=== PATIENT | female | born 1940 | race African-American/Black ===

== ENCOUNTER 2019-10-19 15:10 | Outpatient (CLI) | payer MEDICARE, SELFPAY ==
--- NOTE | ~2019-10-19 | CT_ITS ---
EXAMINATION: CT abdomen pelvis wo con DATE: 10/19/2019 15:16 INDICATION: Low abdominal pain TECHNIQUE: Computed tomography (CT) of the abdomen and pelvis was performed without intravenous contr ast. Automated exposure control and iterative reconstruction technique were employed. Exam dose: 869 .01 mGy-cm total exam DLP. COMPARISON: 06/23/2016 CT abdomen pelvis FINDINGS: There are stable hepatic and bilateral renal cysts since 06/23/2016. Occasional hepatic and splenic c alcified granulomas consistent with old granulomatous disease. No interval hepatic, splenic, pancreat ic, adrenal or renal space-occupying mass lesion is evident. No urinary tract calculus or hydroureteronephrosis. The uterus is retroverted. Otherwise the uterus, adnexal areas and urinary bladder are unremarkable. There is abdominal aortic and bilateral iliac arterial calcification and femoral artery calcification but no aneurysm. No intraperitoneal or retroperitoneal or pelvic mass lesion or adenopathy or ascite s. Small sliding hiatal hernia. Again noted is a duodenal diverticulum. Normal appendix. There are numerous diverticula of the sigmoid and descending colon and right colon; no CT evidence of diverticulitis. Diffuse idiopathic skeletal hyperostosis of the lower thoracic and upper lumbar spine. Degenerative d isease and severe hypertrophic degenerative change of the apophyseal joints of the lumbar spine. Bilateral hip osteoarthritis. The lung bases are clear of infiltrate or consolidation. Cardiomegaly. Trace pericardial fluid. No pl eural effusion. IMPRESSION: Stable hepatic and bilateral renal cysts since 06/23/2016 Diverticulosis of the left and right colon; no CT evidence of diverticulitis Normal appendix Small sliding hiatal hernia Reviewed, dictated and finalized at Location [facility]. Reviewed, dictated and finalized at location B. 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
== END 2019-10-19 15:11 | disposition home or self-care (01) ==
PROVIDERS: PCP Internal Medicine; Visit Provider Obstetrics & Gynecology
DX: R19.00 Intra-abdominal and pelvic swelling, mass and lump, unspecified site (principal); K76.89 Other specified diseases of liver; N28.1 Cyst of kidney, acquired; K57.90 Diverticulosis of intestine, part unspecified, without perforation or abscess without bleeding; K44.9 Diaphragmatic hernia without obstruction or gangrene
CPT/HCPCS: 74176

== ENCOUNTER 2019-10-24 10:59 | Outpatient (CLI) | payer MEDICARE, SELFPAY ==
--- NOTE | ~2019-10-24 | MM_ITS ---
EXAMINATION: MM screening roni BI w justin HISTORY: Screening mammogram TECHNIQUE: Bilateral rotated lateral cc views. Craniocaudal and mediolateral oblique 3-D tomosynthesi s images were obtained and synthetic 2-D images were generated. CAD analysis was submitted and interp reted. COMPARISON: 10/30/2018 diagnostic right digital mammogram 09/27/2018, 09/22/2017, 09/30/2016 bilateral digital screening mammogram examinations BREAST PARENCHYMAL COMPOSITION: The breasts are almost entirely fatty. The FINDINGS: There is a biopsy marker on the left; history of prior benign left breast biopsy. There ar e bilateral scattered benign calcifications. There is no evidence of suspicious mass, calcification, or architectural distortion to suggest malignancy in either breast. There has been no suspicious inte rval change. IMPRESSION: 1. No mammographic evidence of malignancy. 2. Recommend routine screening mammography in one year. BI-RADS Category 2: Benign finding(s). Reviewed, dictated and finalized at location A. 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
== END 2019-10-24 11:00 | disposition home or self-care (01) ==
LOC: ANHIMG 11:03
PROVIDERS: PCP Internal Medicine; Visit Provider Obstetrics & Gynecology
DX: Z12.31 Encounter for screening mammogram for malignant neoplasm of breast (principal)
CPT/HCPCS: 77063; 77067

== ENCOUNTER 2020-09-11 06:54 | Outpatient (NON) | payer MEDICARE, SELFPAY ==
[2020-09-11 17:56] LABS: SARS-CoV-2 RNA PCR Negative
== END 2020-09-11 06:55 ==
LOC: ANHCOVIDDT 06:58
PROVIDERS: PCP Internal Medicine; Visit Provider Internal Medicine
DX: R68.89 Other general symptoms and signs (principal); Z20.828 Contact with and (suspected) exposure to other viral communicable diseases
CPT/HCPCS: 87635; C9803; U0003

== ENCOUNTER 2020-11-12 14:29 | Outpatient (CLI) | payer MEDICARE, SELFPAY ==
--- NOTE | ~2020-11-12 | MM_ITS ---
EXAMINATION: MM screening roni BI w justin HISTORY: Screening TECHNIQUE: Craniocaudal and mediolateral oblique 3-D tomosynthesis images were obtained and synthetic 2-D images were generated. CAD analysis was submitted and interpreted. COMPARISON: Comparison to multiple prior studies sequentially, with oldest reviewed study dated 05/2017. BREAST PARENCHYMAL COMPOSITION: There are scattered areas of fibroglandular density. FINDINGS: There is no evidence of suspicious mass, calcification, or architectural distortion to sugg est malignancy in either breast. There has been no suspicious interval change. IMPRESSION: 1. No mammographic evidence of malignancy. 2. Recommend routine screening mammography in one year. BI-RADS Category 1: Negative Reviewed, dictated and finalized at location A. 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
== END 2020-11-12 14:30 | disposition home or self-care (01) ==
LOC: ANHIMG 14:31
PROVIDERS: PCP Internal Medicine; Visit Provider Obstetrics & Gynecology
DX: Z12.31 Encounter for screening mammogram for malignant neoplasm of breast (principal)
CPT/HCPCS: 77063; 77067

== ENCOUNTER → 2020-11-24 02:54 | Outpatient (CLI) | payer MEDICARE, SELFPAY ==
[2020-11-24 21:05] LABS: SARS-CoV-2 RNA PCR Negative
== END ==
PROVIDERS: PCP Internal Medicine; Visit Provider Internal Medicine Gastroenterology
DX: Z01.812 Encounter for preprocedural laboratory examination (principal); Z20.822 Contact with and (suspected) exposure to COVID-19
CPT/HCPCS: C9803; U0003; U0005

== ENCOUNTER 2020-11-27 01:26 | Day surgery (SDC) | payer MEDICARE, SELFPAY ==
[2020-11-18 10:05] VITALS: BMI 32.1
[2020-11-27 08:50] VITALS: BP 177/50; PULSE 86; RESP 16; TEMP 36.4; O2SAT 95; BMI 32.5
[2020-11-27 09:08] LABS: Glucose Point of Care 103 (65-105)
[2020-11-27] MEDS: LACTATED RINGERS 1,000 ML 150 ML IV CONT (09:08)
--- NOTE | 2020-11-27 09:11 | WPDANESEPPF ---
Anes - Initial Pre Proc Eval Procedure: Operation Date: 11/27/20 10:00 Proposed Procedures p Screening Colonoscopy - Simone Craig MD Date/Time: 11/27/20 09:11 Surgeon: Simone Craig MD Pre Op Diagnosis: hx colon polyps Patient Data Age: 79 Gender: F Height: 5 ft 4 in Weight: 86 kg Last Vital Signs Temp 97.6 F 11/27/20 08:50 Pulse 86 11/27/20 08:50 Resp 16 11/27/20 08:50 BP 177/50 H 11/27/20 08:50 Pulse Ox 95 11/27/20 08:50 Allergies Allergy/AdvReac Type Severity Reaction Status Date / Time atorvastatin [From Lipitor] Allergy Mild myalgia Verified 11/27/20 08:48 fluvastatin [From Lescol] Allergy Mild Unknown Verified 11/27/20 08:48 pravastatin [From Pravachol] Allergy Mild Unknown Verified 11/27/20 08:48 rosuvastatin [From Crestor] Allergy Mild myalgia Verified 11/27/20 08:48 Penicillins Allergy Unknown Unknown Verified 11/27/20 08:48 IV CONTRAST DYE Allergy Mild CKD Uncoded 11/27/20 08:48 Home Medications Medication Instructions Recorded Confirmed Type metformin 500 mg tablet 500 mg PO BID 08/02/19 11/18/20 History albuterol sulfate 90 mcg/actuation 1 puff INHALATION Q4H PRN 10/31/19 11/18/20 History aerosol inhaler fluticasone furoate 200 1 inhalation INHALATION DAILY 10/31/19 11/18/20 History mcg-vilanterol 25 mcg/dose inhalation powder omeprazole 40 mg capsule,delayed 40 mg PO DAILY 10/31/19 11/18/20 History release sulfasalazine 500 mg tablet See Rx Instructions .ROUTE 05/14/20 11/18/20 Rx .COMPLEX #180 tablet fluticasone propionate 50 1 spray NASAL BID #15.8 ml 06/10/20 11/18/20 Rx mcg/actuation nasal spray,suspension allopurinol 300 mg tablet 300 mg PO DAILY 09/25/20 11/18/20 History atorvastatin 40 mg tablet 40 mg PO DAILY 09/25/20 11/18/20 History furosemide 40 mg tablet 40 mg PO QAM 09/25/20 11/18/20 History hydralazine 25 mg tablet 25 mg PO ONCE tablet 09/25/20 11/18/20 History hydrochlorothiazide 25 mg tablet 25 mg PO DAILY 09/25/20 11/18/20 History hydroxyzine HCl 10 mg tablet 10 mg PO QID PRN tablet 09/25/20 11/18/20 History irbesartan 300 mg tablet 300 mg PO DAILY 09/25/20 11/18/20 History lorazepam 0.5 mg tablet 0.5 mg PO DAILY PRN 09/25/20 11/18/20 History metolazone 2.5 mg tablet 2.5 mg PO DAILY 09/25/20 11/18/20 History metoprolol tartrate 100 mg tablet 100 mg PO DAILY 09/25/20 11/18/20 History montelukast 10 mg tablet 10 mg PO DAILY 09/25/20 11/18/20 History nifedipine 60 mg tablet,extended 60 mg PO BID tablet 09/25/20 11/18/20 History release potassium chloride 20 mEq 20 meq PO DAILY 09/25/20 11/18/20 History tablet,extended release sod picosulf 10 mg-magnes 3.5 160 ml PO BID #160 ml 11/17/20 Rx gram-citric 12 gram/160 mL oral solution Laboratory Tests 11/27/20 09:04 POC Capillary Glucose 103 mg/dl mg/dl (65-105) Patient hx anesthesia problems: none Family hx anesthesia problems: none PMFSH Past Medical History Medical History (Updated 11/06/20 @ 11:56 by Madhu Raines MD) Adenomatous colon polyp Allergic rhinitis Asthma Brachial neuritis Congestive heart failure Contusion of lower leg Disorder of rotator cuff Disorder of vitamin B12 Edema Epigastric pain ESR raised Essential hypertension Fracture of humerus Generalized osteoarthritis of multiple sites GERD (gastroesophageal reflux disease) Gout 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) Indigestion Lower abdominal pain Neck pain Pain, joint, ankle and foot Pure hypercholesterolemia Seronegative spondyloarthropathy (~2016) Shoulder joint pain Sleep apnea, unspecified Type 2 diabetes mellitus Ventral incisional hernia Surgical History Surgical History History of left cataract extraction History of right cataract extraction Family History Family History Mother
--- NOTE | 2020-11-27 09:51 | PM.HPGS ---
History of Present Illness History of Present Illness Consent: Risks, benefits, and alternatives have been discussed and questions answered. Patient agrees to proceed with procedure. Chief complaint: hx colon polyps Narrative: Madyson Giraldo is a 79 year old female here for colon cancer screening she has had polyps removed in the past Review of Systems Review of Systems: All systems reviewed & are unremarkable except as noted in HPI and below PMFSH Past Medical History Medical History Adenomatous colon polyp Allergic rhinitis Asthma Brachial neuritis Congestive heart failure Contusion of lower leg Disorder of rotator cuff Disorder of vitamin B12 Edema Epigastric pain ESR raised Essential hypertension Fracture of humerus Generalized osteoarthritis of multiple sites GERD (gastroesophageal reflux disease) Gout 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) Indigestion Lower abdominal pain Neck pain Pain, joint, ankle and foot Pure hypercholesterolemia Seronegative spondyloarthropathy (~2016) Shoulder joint pain Sleep apnea, unspecified Type 2 diabetes mellitus Ventral incisional hernia Surgical History Surgical History History of left cataract extraction History of right cataract extraction Family History Family History Mother Hypertension Unknown Family history of stroke Family history of cancer Other Diabetes mellitus Family history of allergic disorder Family history of cardiovascular disease Family history of sleep apnea Social History Social History Smoking status: Never smoker Alcohol intake: never Substance use: never Substance use type: does not use Living arrangements: with family Gender identity (if verbalized by the patient): Female Spiritual care concerns: No Meds Home Medications and Allergies Home Medications Medication Instructions Recorded Confirmed Type metformin 500 mg tablet 500 mg PO BID 08/02/19 11/18/20 History albuterol sulfate 90 mcg/actuation 1 puff INHALATION Q4H PRN 10/31/19 11/18/20 History aerosol inhaler fluticasone furoate 200 1 inhalation INHALATION DAILY 10/31/19 11/18/20 History mcg-vilanterol 25 mcg/dose inhalation powder omeprazole 40 mg capsule,delayed 40 mg PO DAILY 10/31/19 11/18/20 History release sulfasalazine 500 mg tablet See Rx Instructions .ROUTE 05/14/20 11/18/20 Rx .COMPLEX #180 tablet fluticasone propionate 50 1 spray NASAL BID #15.8 ml 06/10/20 11/18/20 Rx mcg/actuation nasal spray,suspension allopurinol 300 mg tablet 300 mg PO DAILY 09/25/20 11/18/20 History atorvastatin 40 mg tablet 40 mg PO DAILY 09/25/20 11/18/20 History furosemide 40 mg tablet 40 mg PO QAM 09/25/20 11/18/20 History hydralazine 25 mg tablet 25 mg PO ONCE tablet 09/25/20 11/18/20 History hydrochlorothiazide 25 mg tablet 25 mg PO DAILY 09/25/20 11/18/20 History hydroxyzine HCl 10 mg tablet 10 mg PO QID PRN tablet 09/25/20 11/18/20 History irbesartan 300 mg tablet 300 mg PO DAILY 09/25/20 11/18/20 History lorazepam 0.5 mg tablet 0.5 mg PO DAILY PRN 09/25/20 11/18/20 History metolazone 2.5 mg tablet 2.5 mg PO DAILY 09/25/20 11/18/20 History metoprolol tartrate 100 mg tablet 100 mg PO DAILY 09/25/20 11/18/20 History montelukast 10 mg tablet 10 mg PO DAILY 09/25/20 11/18/20 History nifedipine 60 mg tablet,extended 60 mg PO BID tablet 09/25/20 11/18/20 History release potassium chloride 20 mEq 20 meq PO DAILY 09/25/20 11/18/20 History tablet,extended release sod picosulf 10 mg-magnes 3.5 160 ml PO BID #160 ml 11/17/20 Rx gram-citric 12 gram/160 mL oral solution Allergies Allergy/AdvReac Type Severity Reaction Status Date / Time atorvastatin [From Lipitor] Allergy Mild my
[2020-11-27 10:18] VITALS: BP 142/59; PULSE 71; RESP 19; O2SAT 95
[2020-11-27 10:28] VITALS: BP 152/56; PULSE 73; RESP 19; O2SAT 95
[2020-11-27 10:38] VITALS: BP 175/74; PULSE 76; RESP 19; O2SAT 96
== END 2020-11-27 10:53 | disposition home or self-care (01) ==
PROVIDERS: PCP Internal Medicine; Visit Provider Internal Medicine Gastroenterology
PROC: 0DJD8ZZ Inspection of Lower Intestinal Tract, Via Natural or Artificial Opening Endoscopic (ICD-10-PCS; CPT 45378; principal; 2020-11-27 10:00)
DX: Z12.11 Encounter for screening for malignant neoplasm of colon (principal); K63.5 Polyp of colon; D12.4 Benign neoplasm of descending colon; K57.30 Diverticulosis of large intestine without perforation or abscess without bleeding; I11.0 Hypertensive heart disease with heart failure; I50.9 Heart failure, unspecified; K21.9 Gastro-esophageal reflux disease without esophagitis; M10.9 Gout, unspecified; E11.9 Type 2 diabetes mellitus without complications; E78.00 Pure hypercholesterolemia, unspecified; J45.909 Unspecified asthma, uncomplicated; M15.9 Polyosteoarthritis, unspecified; G47.30 Sleep apnea, unspecified; Z79.84 Long term (current) use of oral hypoglycemic drugs; Z79.51 Long term (current) use of inhaled steroids; E66.01 Morbid (severe) obesity due to excess calories; Z68.32 Body mass index [BMI] 32.0-32.9, adult
CPT/HCPCS: 45380; 45385; 82948; 88305; J2704; J7120

== ENCOUNTER → 2020-12-18 11:03 | Outpatient (CLI) | payer MEDICARE, SELFPAY ==
--- NOTE | ~2020-12-18 | MR_ITS ---
EXAMINATION: MR hip RT wo con DATE: 12/18/2020 11:58 INDICATION: Right hip pain TECHNIQUE: Magnetic resonance imaging (MRI) of the right hip was performed without intravenous contr ast. Sequences included full-field axial PD-weighted FS FSE and T1-weighted FSE, coronal of the pelvi s with PD-weighted FS FSE, T1-weighted FSE and T2-weighted FS FSE, small field of view of the right hip with axial PD-weighted FS FSE, sagittal PD-weighted FS FSE and coronal PD weighted FS FSE. Additi onal radial T1-weighted FGR oriented orthogonal to the acetabular rim were obtained for evaluation of the labrum. COMPARISON: Right hip radiographs dated 12/02/[address] dated 10/19/2019 FINDINGS: Bones/labrum/cartilage: Alignment is normal. No fracture, avascular necrosis or pathologic marrow replacing process. Chronic moderate osteitis pubis. Mild right hip osteoarthritis with partial thickness cartilage loss without degenerative subchondral changes resulting in mild nonuniform joint space narrowing most prominent a t the posterior and posterior inferior joint space. Marginal osteophytes about the right acetabulum e xtending to the diminutive remaining acetabular labrum which is without discrete tear. Severe right s acroiliac osteoarthritis with prominent hypertrophic anterior osteophytes. There is mild soft tissue edema surrounding the osteophytes in the immediately adjacent right iliac is muscle. Moderate left sa croiliac osteoarthritis. Fluid: Symmetric physiologic amount of fluid within both hip joints. Soft tissues: Normal and symmetric muscle bulk and signal in the pelvis and visualized proximal thighs. The iliopso as and gluteal tendons are normal. Mild tendinopathy without discrete tear at the ischial tuberosity origins of the bilateral proximal hamstring tendons. Multiple nodular regions which are T2 hyperinten se to the surrounding myometrium in the retroverted uterus likely representing uterine fibroids, the largest measuring 4.5 cm in maximal diameter. Multiple scattered colonic diverticula. 4 cm cyst at th e inferior right hepatic lobe. No pathologically enlarged pelvic/inguinal lymphadenopathy. IMPRESSION: 1. Mild right hip osteoarthritis without joint effusion or acute osseous abnormality. 2. Moderate left-sided and severe right-sided sacroiliac osteoarthritis with likely reactive soft tis cholo edema surrounding large hypertrophic osteophytes at the anterior right sacral iliac joint. 3. Fibroid uterus. 4. Mild colonic diverticulosis. Reviewed, dictated and finalized at location B. IMPRESSION: 1. Mild right hip osteoarthritis without joint effusion or acute osseous abnorm ality. 2. Moderate left-sided and severe right-sided sacroiliac osteoarthritis with li david reactive soft tissue edema surrounding large hypertrophic osteophytes at t he anterior right sacral iliac joint. 3. Fibroid uterus. 4. Mild colonic diverticulosis.
== END ==
PROVIDERS: PCP Internal Medicine; Visit Provider Orthopaedic Surgery
DX: M16.11 Unilateral primary osteoarthritis, right hip (principal); D25.9 Leiomyoma of uterus, unspecified; K57.30 Diverticulosis of large intestine without perforation or abscess without bleeding; M53.3 Sacrococcygeal disorders, not elsewhere classified
CPT/HCPCS: 73721

== ENCOUNTER 2021-04-01 10:09 | Outpatient (CLI) | payer MEDICARE, SELFPAY ==
--- NOTE | 2021-04-01 16:35 | WPDSIXMINUTE ---
Six Minute Walk Procedure Procedure Performed Pulmonary Stress Test (6 min walk) Six Minute Walk This is a 6 minutes walk test. The test was performed and interpreted in accordance with the 2014 ERS/ATS task force guidelines. Findings: The patient's resting room air oxygen saturation measured by pulse oximetry was 98% and her heart rate was 70 bpm. Patient ambulated for 183 meters and oxygen saturation remained 94 to 98%. Heart rate at the end of the study was 98 bpm. The patient did not qualify for supplemental oxygen at rest or with ambulation. There are no prior studies for comparison.
--- NOTE | 2021-04-01 16:36 | P.PCNPFT_ITS ---
PFT Procedure Performed PFT Procedure Performed Spirometry with Pre/Post Bronchodilator Plethysmography (Lung Vol) Diffusing Cap (DLCO) Flow Vol Loop PFT Interpretation This is a pulmonary function test with pre and post-bronchodilator spirometry, plethysmography and diffusing capacity. The test was performed and results interpreted in accordance with the 2019 and 2005 ATS/ERS Task Force guidelines respectively using the Global Lung Function Initiative-2012 reference equations. Patient demonstrated good effort and cooperation. Reproducibility criteria were met. The quality of the pre bronchodilator spirometry maneuver was Grade A. Findings: Spirometry: There is decreased maximal expiratory airflow at all lung volumes with concave expiratory flow tracing. The contour of the inspiratory flow tracing is normal. The pre bronchodilator FVC was 1.58 L, 73% predicted. The pre bronchodilator FEV1 is 1.91 L, 55% predicted. The FEV1: FVC ratio is 58%. The post bronchodilator FVC is 1.57 L, representing a 1% decrease. The post bronchodilator FEV1 is 1.05 L, representing 140 mL increase or a 15% increase. Plethysmography: The total lung capacity is 5.33 L, 119% predicted. Functional residual capacity is 4.08 L, 140% predicted. The residual volume is 3.75 L, 167% predicted. Diffusing capacity: The absolute diffusion capacity is 10.6, 55% predicted. Diffusing capacity corrected for alveolar volume is 3.77, 92% predicted. In comparison to previous pulmonary function test on 11/23/2017 the post bronchodilator FVC is unchanged from 1.60 L to 1.57 L. The post bronchodilator FEV1 is unchanged from 1.16 L to 1.05 L. The total lung capacity is increased from 3.61 L to 5.33 L. The functional residual capacity is increased from 2.67 L to 4.08 L. The residual volume is increased from 1.95 L to 3.75 L. The absolute diffusion capacity is decreased from 12.9 to 10.6. The diffusing capacity corrected for alveolar volume is decreased from 4.50 to 3.77. Impression: There is a moderately severe obstructive abnormality without significant improvement after inhaling a single dose of albuterol as there was not absolute increase in 200 mL in the post bronchodilator FVC or FEV1. The increase in residual volume is consistent with air trapping from an obstructive abnormality. Hyperinflation is present is demonstrated by the increase in functional residual capacity and is consistent with an obstructive abnormality. The absolute diffusing capacity is moderately decreased and normalizes when corrected for alveolar volume. In comparison to prior pulmonary function tests on 11/23/2017 there has been a greater than anticipated time dependent increase in the total lung capacity, fun ctional residual capacity and residual volume with a greater than anticipated time dependent decrease in the absolute diffusion capacity and diffusing capacity corrected for alveolar volume with no change in the FVC and FEV1. Clinical correlation is recommended. There are no prior studies for comparison
== END 2021-04-01 10:10 | disposition home or self-care (01) ==
LOC: ANHPFT 10:11
PROVIDERS: PCP Internal Medicine; Visit Provider Internal Medicine Critical Care Medicine
DX: J44.9 Chronic obstructive pulmonary disease, unspecified (principal); R06.02 Shortness of breath
CPT/HCPCS: 94060; 94726; 94729

== ENCOUNTER 2021-06-17 12:50 | Outpatient (CLI) | payer MEDICARE, SELFPAY | END 2021-06-17 12:51 | disposition home or self-care (01) | LOC: ANHAUDIO 12:51 | PROVIDERS: PCP Internal Medicine; Visit Provider Otolaryngology | DX: H72.01 Central perforation of tympanic membrane, right ear (principal); H81.10 Benign paroxysmal vertigo, unspecified ear | CPT/HCPCS: 92557; 92567 ==

== ENCOUNTER 2021-10-01 09:32 | Outpatient (CLI) | payer MEDICARE, SELFPAY ==
--- NOTE | ~2021-10-01 | US_ITS ---
EXAMINATION: US abdomen complete EXAM DATE: 10/01/2021 11:56 INDICATION: R11.2 - Nausea with vomiting, unspecified. TECHNIQUE: Multiple grayscale and Doppler images of the complete abdomen were obtained (by a technolo roger who performed the scan) and subsequently reviewed. Comparison is made to prior examination from 05/31/2012. FINDINGS: The abdominal aorta is normal in caliber. Visualized portion IVC is patent. The pancreatic head a nd body are normal in appearance. The pancreatic tail is not visualized. The liver has normal echogenicity and contour. There is a liver cyst measuring 4.4 cm. There is no evidence of intrahepatic biliary duct dilation. Portal venous flow was seen in the hepatopedal, norm al direction and has normal Doppler waveform. Common bile duct measures 5 mm, which is normal. The gallbladder wall is normal in thickness, with ex pected amount of distention. No sonographic evidence of pericholecystic fluid. Gallbladder polyp me asuring 5-6 mm in size, appears to have been present in 2012, captured on one image. Technologist brendan rforming exam reports patient did not demonstrate sonographic Gómez's sign. Please note that this s ign is less reliable in patients who have received pain medication. Right kidney: There is normal contour and echogenicity. It measures 10.4 x 5.4 x 5.0 centimeters. 2 lesions consistent with cysts measuring up to 1.6 and 1.2 cm. There is no hydronephrosis. Left kidney: There is normal contour and echogenicity. It measures 11.4 x 5.6 x 4.6 centimeters. Th ere are multiple lesions consistent with cysts, largest 2 measuring about 6 cm, have increased in siz e compared to 2012. There is no hydronephrosis. The spleen measures 8.3 centimeters and is morphologically normal. IMPRESSION: 1. No acute findings. 2. Small gallbladder polyp requiring no further follow-up. 3. Renal, liver cysts. Reviewed, dictated and finalized at location B. EM OPERATOR
== END 2021-10-01 09:33 | disposition home or self-care (01) ==
LOC: ANHIMG 09:36
PROVIDERS: PCP Internal Medicine; Visit Provider Internal Medicine Gastroenterology
DX: R11.2 Nausea with vomiting, unspecified (principal); K82.4 Cholesterolosis of gallbladder; K76.89 Other specified diseases of liver; N28.1 Cyst of kidney, acquired
CPT/HCPCS: 76700

== ENCOUNTER 2021-12-09 10:30 | Outpatient (RCR) | payer MEDICARE, SELFPAY ==
--- NOTE | 2021-11-19 14:22 | PTOPEVAL ---
Thank you for referring Madyson Giraldo to [facility].? The patient is scheduled to be seen for therapy? 1 x/week for 8 weeks. Please review, sign, date and return this plan of care TONI. I agree with and certify that the following plan of care is medically necessary. Referring Physician Date Attending Provider: Osmar yWnn MD Diagnosis BPPV Cause 2 months Additional Evaluation Detail s/p right ear tube placement ~ 6 months ago on medication for her cardiac problems. Subjective Information C/o Dizziness from sup/sit, Query Text:As Reported By Patient/ sit>stand movement and walking Family . Denies any falls or dizziness with rolling in bed. Denies any dizziness with ADL's, dovetailer. Denies dizziness with driving. Denies use of AD. Previous Treatments Previous Treatments For This Problem yes 1 yr ago Pain Assessment Left Leg(s) Reported Pain Level 0 Pain Frequency Chronic Lowest Pain Intensity 0 Greatest Pain Intensity 4 Cervical and Lumbar ROM Cervical ROM Cervical Flexion (0-60) 60:Active in Degrees Cervical Extension (0-70) 48:Active in Degrees Cervical Lateral Flexion Right (0-50) 18:Active in Degrees Cervical Lateral Flexion Left (0-50) 18:Active in Degrees Cervical Rotation Right (0-90) 48:Active in Degrees Cervical Rotation Left (0-90) 30:Active in Degrees Posture Posture Sitting Position Head/C-Spine Posture Excess Extension,Forward Head Thoracic Spine Posture Increased Kyphosis Scapula Posture (L) Protracted,(R) Protracted, (L) Winged,(R) Winged,(L) Tipped,(R) Tipped Balance Assessment [place] Balance Assessment [place] Balance Evaluation Total Score (40/56 points) Time Up Go (TUG) Timed Up and Go Test (TUG) (Seconds) 13 Assistive Devices None Dynamic Gait Index Total Score (15/24) Gait Assessment Gait Assessment Ambulation Assistive Devices None Ambulation Direction Forward Ambulation Surface Level Ambulation Ability Independent Vestibular Evaluation Vestibular Medical Information Past Vestibular History Sinus/Allergy Issues Recent Symptoms Loss of Balance Previous Medical Care/Testing Previous PT Symptoms Increase Lie Down (sit to supine), Sitting up in Bed,Stand up Quickly Symptoms Decrease
--- NOTE | 2021-11-25 09:32 | PCPTNOTE ---
Patient called & cancelled scheduled appointment this date due to having another appointment, this morning.
--- NOTE | 2021-12-02 10:22 | PCPTNOTE ---
Patient called & cancelled scheduled appointment this date due to having to take care of her .
--- NOTE | 2021-12-16 10:08 | PCPTNOTE ---
Patient called & cancelled scheduled appointment this date due to stating she was to dizzy to drive in the rain. Also, cancelled her next appointment due to not having a caregiver for her , who has dementia
--- NOTE | 2021-12-17 09:26 | PCPTNOTE ---
Admitting Provider: Attending Provider: Osmar Wynn MD Patient:Madyson Giraldo Date of :1940 Physical Therapy Discharge Note Patient has not returned for any further treatments since 12/09/2021, therefore she will be discharged at this time. Patient?s initial visit was on 11/19/2021 and she had a total of 2 visits with 4 visits cancelled. The goals have been not met due to limited therapy visits attended. Thank you for referring this patient to [facility]. Please review, sign, date and return this discharge summary TONI. I have been updated about the patient's current status and I agree with discharge from the above service at this time. Referring Physician Date
== END 2021-12-18 11:33 | disposition home or self-care (01) ==
LOC: ANHPT 10:30
PROVIDERS: PCP Internal Medicine; Visit Provider Otolaryngology
DX: H81.10 Benign paroxysmal vertigo, unspecified ear (principal)
CPT/HCPCS: 97112; 97162

== ENCOUNTER 2022-01-06 09:51 | Outpatient (CLI) | payer MEDICARE, SELFPAY ==
--- NOTE | ~2022-01-06 | MM_ITS ---
EXAMINATION: MM screening [facility] BI w justin HISTORY: Screening TECHNIQUE: Craniocaudal and mediolateral oblique 3-D tomosynthesis images were obtained and synthetic 2-D images were generated. CAD analysis was submitted and interpreted. COMPARISON: Comparison to multiple prior studies sequentially, with oldest reviewed study dated 05/2017. BREAST PARENCHYMAL COMPOSITION: There are scattered areas of fibroglandular density. FINDINGS: There is no evidence of suspicious mass, calcification, or architectural distortion to sugg est malignancy in either breast. There has been no suspicious interval change. IMPRESSION: 1. No mammographic evidence of malignancy. 2. Recommend routine screening mammography in one year. BI-RADS Category 1: Negative Reviewed, dictated and finalized at location A.
--- NOTE | ~2022-01-06 | DEXA_ITS ---
Bone Density Report Name: TARAN BOOTH Age: 81 Sex: Female Ethnicity: White Date of : 1940 Indication: postmenopausal; screening for osteoporosis; height loss; prior fracture; asthma or emphysema; Referring Provider: FINESSE, MARGOTH [place] Study: Bone densitometry was performed. Exam Date: January 06, 2022 Accession number: [id number] Bone Density: Region BMD T-score Z-score Classification AP Spine(L1, L3, L4) 1.038 -0.1 2.6 Normal Femoral Neck (Left) 0.615 -2.1 0.3 Osteopenia Total Hip (Left) 0.777 -1.4 0.8 Osteopenia Femoral Neck (Right) 0.630 -2.0 0.4 Osteopenia Total Hip (Right) 0.753 -1.5 0.6 Osteopenia Total Hip Mean 0.765 -1.5 0.7 Osteopenia World Health Organization criteria for BMD impression classify patients as: Normal (T-score at or above -1.0), Osteopenia (T-score between -1.0 and -2.5), or Osteoporosis (T-score at or below -2.5). 10-year Fracture Risk(1): Major Osteoporotic Fracture 21% Hip Fracture 5.8% Reported Risk Factors: [place] (), Neck BMD=0.615, BMI=34.6, previous fracture (1) FRAX(R) Version 3.08. Fracture probability calculated for an untreated patient. Fracture probability may be lower if the patient has received treatment. Clinical Information Provided by Patient: Has had a low trauma fracture Has the following medical conditions: Asthma or Emphysema Patient maximum height was 63 Menopause Age: 44 No regular weight bearing exercise Onset of menses at age 12 Number of children 3 Impression: The patient has low bone mass, based on the Left Femoral Neck T-score. The patient has an estimated ten-year risk of hip fracture of 5.8% and an estimated ten-year risk of major fracture of 21%, based on the WHO FRAX algorithm. The patient has risk factors, including: previous fracture. Discussion: BONE DENSITY IS LOW AT ONE OR MORE SKELETAL SITES. THE PATIENT'S BMD AND CLINICAL RISK FACTORS CONTRIBUTE TO THIS PATIENT'S HIGH RISK OF FRACTURE. This patient's lowest T-score is low at one or more skeletal sites. It meets the World Health Organization's (WHO) criteria for ?low bone mass? (T-score between -1.0 and -2.5). The patient's 10-year risk of hip fracture and 10 year risk of a major osteoporotic fracture as calculated by FRAX exceeds the threshold where pharmacological therapy is recommended by the National Osteoporosis Foundation (NOF). However, all treatment decisions require clinical judgment and consideration of individual patient factors, including patient preferences, comorbidities, previous drug use, risk factors not captured in the FRAX model (e.g., frailty, falls, vitamin D deficiency, increased bone turnover, interval significant decline in bone density) and possible under or overestimation of fracture risk by FRAX. The patient should follow a
== END 2022-01-06 09:52 | disposition home or self-care (01) ==
LOC: ANHIMG 09:53
PROVIDERS: PCP Internal Medicine; Visit Provider Internal Medicine
DX: Z12.31 Encounter for screening mammogram for malignant neoplasm of breast (principal); M81.0 Age-related osteoporosis without current pathological fracture; M85.852 Other specified disorders of bone density and structure, left thigh; M85.851 Other specified disorders of bone density and structure, right thigh
CPT/HCPCS: 77063; 77067; 77080

== ENCOUNTER 2022-02-03 12:10 | Outpatient (CLI) | payer MEDICARE, SELFPAY ==
[2022-02-03 12:31] LABS: Basophils Absolute Auto 0.1 K/mm3 (0.0-0.1); Basophils Percent Auto 0.6 % (0.2-1.2); Eosinophils Absolute Auto 0.1 K/mm3 (0-0.3); Eosinophils Percent Auto 0.9 % (0-4.4); Hematocrit 33.6 % (37.0-47.0); Hemoglobin 10.6 g/dL (12.0-15.0); Immature Granulocyte Absolute 0.04 K/mm3 (0.00-0.031); Immature Granulocyte Percent A 0.4 % (0-0.5); Lymphocytes Absolute Auto 2.53 K/mm3 (0.9-3.2); Lymphocytes Percent Auto 26.5 % (18.3-44.2); Mean Corpuscular HGB Conc 31.5 g/dl (32-36); Mean Corpuscular Hemoglobin 30.1 pg (26-34); Mean Corpuscular Volume 95.5 fl (80-100); Mean Platelet Volume 10.9 fl (7.4-10.4); Monocytes Absolute Auto 0.6 K/mm3 (0.1-0.6); Monocytes Percent Auto 5.9 % (2.6-8.5); Neutrophils Absolute Auto 6.3 K/mm3 (1.3-6.7); Neutrophils Percent Auto 65.7 % (45.5-73.1); Platelet Count Result 265 k/mm3 (150-375); Red Blood Count 3.52 M/mm3 (4.2-5.4); Red Cell Distribution Width 13.3 % (11.5-14.5); White Blood Count 9.6 K/mm3 (4.5-10.0)
[2022-02-03 14:46] LABS: Alanine Aminotransferase 16 U/L (6-35); Albumin Level 4.1 g/dL (3.5-5.1); Alkaline Phosphatase 105 U/L (38-126); Anion Gap 8 mmol/L (8-16); Aspartate Amino Transferase 26 U/L (14-36); Bilirubin,Total 0.2 mg/dL (0.2-1.3); Blood Urea Nitrogen 34 mg/dL (7-17); Calcium 9.4 mg/dL (8.4-10.2); Carbon Dioxide 23 mmol/L (22-30); Chloride 109 mmol/L (98-107); Estimated Glomerular Filt Rate 31; Glucose 100 mg/dL (65-110); Potassium 5.4 mmol/L (3.4-5.0); Sodium 140 mmol/L (137-145)
[2022-02-03 14:50] LABS: Appearance Urine Clear (Clear); Bilirubin Urine Negative (Negative); Blood Urine Negative (Negative); Color Urine Yellow (Yellow); Glucose Urine UA Negative (Negative); Ketones Urine Negative (Negative); Leukocyte Esterase Ur Negative LEU/UL (Negative); Nitrate Urine Negative (Negative); Protein Urine 2+ mg/dL (Negative); Specific Grav Ur 1.025 (1.001-1.035); Urobilinogen Urine 0.2 mg/dL (<2.0)
[2022-02-03 14:57] LABS: Bacteria Urine Trace /hpf; RBC Urine 0-2 /hpf (0-2); Squamous Epithelial Cell Urine Few /hpf (Few); WBC Urine 0-3 /hpf
[2022-02-03 14:58] LABS: Add Urine Microscopic? YES
[2022-02-03 15:18] LABS: Erythrocyte Sedimentation Rate 76 mm/hr (0-20)
== END 2022-02-03 12:11 | disposition home or self-care (01) ==
LOC: ANHLAB 12:11
PROVIDERS: PCP Internal Medicine; Visit Provider Internal Medicine
DX: M06.9 Rheumatoid arthritis, unspecified (principal); Z79.899 Other long term (current) drug therapy
CPT/HCPCS: 36415; 80053; 81001; 85025; 85652

== ENCOUNTER 2023-03-16 08:02 | Outpatient (CLI) | payer MEDICARE, SELFPAY ==
--- NOTE | ~2023-03-16 | MM_ITS ---
EXAMINATION: MM screening [facility] BI w justin HISTORY: Screening mammogram TECHNIQUE: Craniocaudal and mediolateral oblique 3-D tomosynthesis images were obtained and synthetic 2-D images were generated. CAD analysis was submitted and interpreted. COMPARISON: 01/06/2022, 11/12/2020, 10/24/2019 BREAST PARENCHYMAL COMPOSITION: The breasts are almost entirely fatty. FINDINGS: No suspicious mass, calcification, or architectural distortion are identified in either jony ast to suggest malignancy. There has been no suspicious interval change. IMPRESSION: 1. No mammographic evidence of malignancy. 2. Recommend routine screening mammography while the patient remains in good health. BI-RADS Category 1: Negative Reviewed, dictated and finalized at location A. IMPRESSION: 1. No mammographic evidence of malignancy. 2. Recommend routine screening mammography while the patient remains in good he alth. BI-RADS Category 1: Negative
== END 2023-03-16 08:03 | disposition home or self-care (01) ==
LOC: ANHIMG 08:04
PROVIDERS: PCP Internal Medicine; Visit Provider Obstetrics & Gynecology
DX: Z12.31 Encounter for screening mammogram for malignant neoplasm of breast (principal)
CPT/HCPCS: 77063; 77067

== ENCOUNTER 2023-08-23 13:30 | Outpatient (CLI) | payer MEDICARE, SELFPAY ==
--- NOTE | ~2023-08-23 | US_ITS ---
EXAMINATION: US renal BI DATE: 08/23/2023 14:33 INDICATION: N18.4 - Chronic kidney disease, stage 4 (severe) TECHNIQUE: Multiple grayscale and Doppler ultrasound images of the kidneys were obtained. COMPARISON: CT abdomen pelvis 10/19/2019. FINDINGS: The right kidney measures 10.0 x 6.0 x 6.0 cm. The left kidney measures 13.4 x 7.4 x 5.7 cm. The kidn eys demonstrate increased parenchymal echogenicity. Multiple bilateral simple renal cysts measuring u p to 6.1 cm on the left. Incidental note of a liver cyst measuring up to 4.5 cm. There is no hydronep hrosis. The bladder is well-distended, ureteral jets not noted during examination. IMPRESSION: Medical renal disease. Multiple bilateral renal cysts. Reviewed, dictated and finalized at location K. IRER
== END 2023-08-23 13:31 | disposition home or self-care (01) ==
PROVIDERS: PCP Internal Medicine; Visit Provider Internal Medicine Nephrology
DX: N18.4 Chronic kidney disease, stage 4 (severe) (principal); N28.1 Cyst of kidney, acquired
CPT/HCPCS: 76775

== ENCOUNTER 2023-11-02 09:46 | Emergency (ER) | payer MEDICARE, SELFPAY ==
[2023-11-02] VITALS (9 sets, daily range): BP systolic 164–221; BP diastolic 51–90; PULSE 58–84; RESP 18–20; TEMP 36.7; O2SAT 98–100
--- NOTE | ~2023-11-02 | CT_ITS ---
EXAMINATION: CT brain wo con INDICATION: Dizziness COMPARISON: 08/07/2018 TECHNIQUE: Standard unenhanced head CT. The dose-length product (DLP) was 605.33 mGy-cm. The mA was a djusted according to patient size. Iterative reconstruction technique was employed. FINDINGS: No acute intraparenchymal hemorrhage. No evidence of mass lesion. No evidence of acute infa rction. There are old infarcts of the right basal ganglia as well as in the left parietal lobe. There is mild periventricular and subcortical hypodensity probably related to small vessel ischemic diseas e. There is mild prominence of the sulci and ventricles related to cerebral atrophy. Intracranial carmen cified cerebral atherosclerosis is noted. No extra-axial collections. No mass effect or midline shift . Changes in the globes are likely from ocular lens surgery. There is a small right mastoid effusion. IMPRESSION: 1. Areas of prior infarction without acute intracranial abnormality. 2. Age related findings. Reviewed, dictated and finalized at location B. AR INSTRUCTOR
--- NOTE | 2023-11-02 11:47 | ECG_ITS ---
Measurements Intervals [place] Rate: 69 P: 66 HI: 147 QRS: 45 QRSD: 91 T: 75 QT: 393 QTc: 421 Interpretive Statements SINUS RHYTHM NONSPECIFIC T-WAVE ABNORMALITY BORDERLINE ECG NO PREVIOUS ECG AVAILABLE FOR COMPARISON Electronically Signed On 11-02-2023 16:27:41 DELI BAKERY CLERK by Bj Hayden M.D.
[2023-11-02 12:11] LABS: Basophils Absolute Auto 0.1 K/mm3 (0.0-0.1); Basophils Percent Auto 0.5 % (0.2-1.2); Eosinophils Absolute Auto 0.1 K/mm3 (0-0.3); Eosinophils Percent Auto 0.9 % (0-4.4); Hematocrit 32.6 % (37.0-47.0); Hemoglobin 10.2 g/dL (12.0-15.0); Immature Granulocyte Absolute 0.05 K/mm3 (0.00-0.031); Immature Granulocyte Percent A 0.5 % (0-0.5); Lymphocytes Absolute Auto 2.29 K/mm3 (0.9-3.2); Lymphocytes Percent Auto 24.8 % (18.3-44.2); Mean Corpuscular HGB Conc 31.3 g/dl (32-36); Mean Corpuscular Hemoglobin 30.4 pg (26-34); Mean Platelet Volume 10.8 fl (7.4-10.4); Monocytes Absolute Auto 0.6 K/mm3 (0.1-0.6); Monocytes Percent Auto 6.6 % (2.6-8.5); Neutrophils Absolute Auto 6.1 K/mm3 (1.3-6.7); Neutrophils Percent Auto 66.7 % (45.5-73.1); Platelet Count Result 269 k/mm3 (150-375); Red Blood Count 3.36 M/mm3 (4.2-5.4); Red Cell Distribution Width 13.8 % (11.5-14.5); White Blood Count 9.2 K/mm3 (4.5-10.0)
--- NOTE | 2023-11-02 12:14 | ED.DIZZY ---
HPI - Dizziness General Chief Complaint: Dizziness Stated Complaint: DIZZINESS X1D Time Seen by Provider: 11/02/23 12:06 Source: patient and family History of Present Illness HPI Narrative: 82 years old female came from home by private car because of dizziness that started last night associated with to. Patient report having similar symptoms but usually was able to walk. Patient report inner ear disorder,/vertigo in the past. She denies any headache, focal neural deficit, nausea, fever, chills, chest pain or shortness of breath. History of the fetus, hypertension, hyperlipidemia, COPD, does not take r anti-platelet or anticoagulant medication. Patient did not take her morning medication today because she is coming to the emergency room Related Data Home Medications Medication Instructions Recorded Confirmed omeprazole 40 mg capsule,delayed 40 mg PO DAILY 10/31/19 07/27/23 release atorvastatin 40 mg tablet 40 mg PO DAILY 09/25/20 07/27/23 furosemide 40 mg tablet 40 mg PO QAM 09/25/20 07/27/23 hydrochlorothiazide 25 mg tablet 25 mg PO DAILY 09/25/20 07/27/23 hydroxyzine HCl 10 mg tablet 10 mg PO QID PRN Allergic Symptoms 09/25/20 07/27/23 lorazepam 0.5 mg tablet 0.5 mg PO DAILY PRN Anxiety 09/25/20 07/27/23 metolazone 2.5 mg tablet 2.5 mg PO DAILY 09/25/20 07/27/23 nifedipine 60 mg tablet,extended 60 mg PO BID 09/25/20 07/27/23 release potassium chloride 20 mEq 20 meq PO DAILY 09/25/20 07/27/23 tablet,extended release metoprolol tartrate 100 mg tablet 100 mg PO BID 01/26/23 07/27/23 Allergies Allergy/AdvReac Type Severity Reaction Status Date / Time atorvastatin [From Lipitor] Allergy Mild myalgia Verified 07/25/23 09:23 fluvastatin [From Lescol] Allergy Mild Unknown Verified 07/25/23 09:23 pravastatin [From Pravachol] Allergy Mild Unknown Verified 07/25/23 09:23 rosuvastatin [From Crestor] Allergy Mild myalgia Verified 07/25/23 09:23 Penicillins Allergy Unknown Unknown Verified 07/25/23 09:23 IV CONTRAST DYE Allergy Mild CKD Uncoded 07/25/23 09:23 Review of Systems Review of Systems: All systems reviewed & are unremarkable except as noted in HPI and below PMFSH Past Medical History Medical History Adenomatous colon polyp Allergic rhinitis Anemia Asthma Asthma-COPD overlap syndrome Brachial neuritis Congestive heart failure Contusion of lower leg Disorder of rotator cuff Disorder of vitamin B12 Edema Epigastric pain ESR raised Essential hypertension Fracture of humerus Generalized osteoarthritis of multiple sites GERD (gastroesophageal reflux disease) Gout Hemoglobin A1c less than 7.0% per pt A1c was 6.7 around Sep 2020 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) Indigestion Lower abdominal pain Neck pain Osteitis pubis Pain, joint, ankle and foot Pure hypercholesterolemia Seronegative spondyloarthropathy (~2016) Shoulder joint pain Sleep apnea, unspecified Type 2 diabetes mellitus Unintentional weight loss Ventral incisional hernia Surgical History Surgical History History of left cataract extraction History of right cataract extraction Family History Family History Mother Hypertension Unknown Family history of stroke Family history of cancer Other Diabetes mellitus Family history of allergic disorder Family history of cardiovascular disease Family history of sleep apnea Social History Social History Smoking status: Never smoker Second hand tobacco smoke exposure: Yes Alcohol intake: never Substance use: never Substance use type: does not use Lack of Transportation: No Lack of Food: Never True Current Housing: I Have Housing Concerned About Future Housing: No Difficulty Paying Gas/Electric Bills: No
[2023-11-02 12:30] LABS: Alanine Aminotransferase 14 U/L (6-35); Albumin Level 4.3 g/dL (3.5-5.1); Alkaline Phosphatase 97 U/L (38-126); Anion Gap 5 mmol/L (8-16); Aspartate Amino Transferase 28 U/L (14-36); Bilirubin,Total 0.5 mg/dL (0.2-1.3); Blood Urea Nitrogen 42 mg/dL (7-17); Calcium 9.6 mg/dL (8.4-10.2); Carbon Dioxide 23 mmol/L (22-30); Chloride 111 mmol/L (98-107); Estimated CRCL calculation 19 ml/min; Estimated Glomerular Filt Rate 29; Glucose 95 mg/dL (65-110); Potassium 5.7 mmol/L (3.4-5.0); Sodium 139 mmol/L (137-145)
[2023-11-02] MEDS: MECLIZINE HCL 25 MG TABLET PO (13:25)
[2023-11-02 13:29] LABS: Appearance Urine Clear (Clear); Bacteria Urine None Seen /hpf; Bilirubin Urine Negative (Negative); Blood Urine Negative (Negative); Color Urine Yellow (Yellow); Glucose Urine UA 1+ mg/dL (Negative); Ketones Urine Negative (Negative); Leukocyte Esterase Ur Negative LEU/UL (Negative); Nitrate Urine Negative (Negative); Non Pathogenic Casts 0-2; Protein Urine 3+ mg/dL (Negative); RBC Urine 0-2 /hpf (0-2); Specific Grav Ur 1.013 (1.001-1.035); Squamous Epithelial Cell Urine None seen /hpf (Few); Urobilinogen Urine 0.2 mg/dL (<2.0)
[2023-11-02 13:36] LABS: Add Urine Microscopic? YES
[2023-11-02] MEDS: METOPROLOL TARTRATE 50 MG TAB 100 MG PO (14:15)
[2023-11-02] MEDS: diazePAM (*CRX) 5 MG TABLET 2.5 MG PO (14:20)
[2023-11-02] MEDS: hydrALAZINE HCL 50 MG TABLET PO (14:48)
[2023-11-02 14:51] LABS: Glucose Point of Care 83 mg/dl (65-105)
== END 2023-11-02 15:40 | disposition home or self-care (01) ==
PROVIDERS: Emergency Medicine; Emergency Provider Emergency Medicine; PCP Internal Medicine
DX: E87.5 Hyperkalemia (principal); R42 Dizziness and giddiness; I13.0 Hypertensive heart and chronic kidney disease with heart failure and stage 1 through stage 4 chronic kidney disease, or unspecified chronic kidney disease; E11.22 Type 2 diabetes mellitus with diabetic chronic kidney disease; N18.9 Chronic kidney disease, unspecified; I50.9 Heart failure, unspecified; J45.909 Unspecified asthma, uncomplicated; D64.9 Anemia, unspecified; M19.90 Unspecified osteoarthritis, unspecified site; K21.9 Gastro-esophageal reflux disease without esophagitis; R82.998 Other abnormal findings in urine
CPT/HCPCS: 36415; 70450; 80053; 81001; 82948; 85025; 87086; 93005; 99284; A9270

== ENCOUNTER 2024-01-21 19:20 | Inpatient (IN) | payer MEDICARE, SELFPAY ==
--- NOTE | ~2024-01-21 | CT_ITS ---
EXAMINATION: CT brain wo con DATE: 01/21/2024 21:12 INDICATION: AMS . TECHNIQUE: Computed tomography (CT) of the head was performed without intravenous contrast. The mA wa s adjusted according to patient size. Iterative reconstruction technique was employed. The dose-lengt h product was 605.33 mGy-cm. COMPARISON: 11/02/2023. FINDINGS: No acute intracranial hemorrhage or extra-axial fluid collection. No hydrocephalus, mass, or herniation. No acute ischemic infarct. Unremarkable dural venous sinus attenuation. No acute osseous abnormality. The aerated spaces are clear. Mild atrophy and chronic white matter change. Atherosclerotic intracranial calcification. Bilateral l ens replacements. Focal old bilateral basal ganglia lacunar infarct. Small old left parietal infarct. IMPRESSION: No acute intracranial process. Reviewed, dictated and finalized at location K.
--- NOTE | ~2024-01-21 | XR_ITS ---
EXAMINATION: XR chest 1V portable Exam Date/Time: 01/21/2024 20:35 CDT HISTORY: AMS Comparison: 01/11/2018. RESULT: Lines, tubes, and devices: None. Lungs and pleura: Senescent/interstitial changes. Prominent pulmonary vessels. Bibasilar scar/atelec tasis. Otherwise clear. Cardiomediastinal silhouette: Stable. Other: No acute osseous or upper abdominal finding. IMPRESSION: Mild interstitial edema versus senescent change. Pulmonary vascular congestion. Reviewed, dictated and finalized at location K.
[2024-01-21 19:35] VITALS: BP 166/51; PULSE 85; RESP 17; TEMP 36.4; O2SAT 99
--- NOTE | 2024-01-21 20:09 | ECG_ITS ---
SEE SCANNED COPY FOR CONFIRMED REPORT MTDD
--- NOTE | 2024-01-21 20:10 | ED.NAVMDI ---
HPI - Nausea/Vomiting/Diarrhea General Chief complaint: Nausea/Vomiting/Diarrhea <Randi Stinson PA-C - Last Filed: 01/21/24 23:51> Stated complaint: nausea/confusion <Randi Stinson PA-C - Last Filed: 01/21/24 23:51> Time Seen by Provider: 01/21/24 19:54 <Randi Stinson PA-C - Last Filed: 01/21/24 23:51> History of Present Illness HPI Narrative: 83-year-old female with history of hypertension, type 2 diabetes, hyperlipidemia, COPD, GERD and recent CVA 2 months ago presents to the emergency department with her 2 sons at bedside for increased memory loss in the past 2 and half to 3 weeks. Patient's sons at bedside assist with history. Patient's sons states approximately 2 months ago she was seen in our emergency department for dizziness and slurred speech. She had a negative workup at that time and was advised to follow-up with her PCP outpatient. Patient was discharged home and later followed up with her PCP, Dr. Miller who ordered an MRI which revealed a ?stroke in the base of her brain?. Patient was sent to physical therapy to assist with vertigo symptoms. However in the past 2 and half to 3 weeks she has developed increased memory issues. Patient's son state she has never had an issue with her memory in the past and is normally the caregiver for her . States recently she has been unable to recall her son's work and is unable to identify what your month it is. This is all new. Patient also reports some nausea but no emesis. Otherwise she denies any symptoms including headache, vision changes, focal numbness or weakness, chest pain or shortness of breath, cough or congestion, abdominal pain, nausea vomiting, diarrhea, dysuria hematuria, rashes or fever. She states she has been taking medications as directed. 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 She reports some intermittent dizziness since her stroke, however is not currently dizzy. Patient sounds also states that the patient has not been eating or drinking well. States she has lost approximately 6 lb in the past 2 weeks unintentionally. <Randi Stinson PA-C - Last Filed: 01/21/24 23:51> Related Data Home medications: Home Medications Medication Instructions Recorded Confirmed omeprazole 40 mg capsule,delayed 40 mg PO DAILY 10/31/19 11/28/23 release atorvastatin 40 mg tablet 40 mg PO DAILY 09/25/20 11/28/23 furosemide 40 mg tablet 40 mg PO QAM 09/25/20 11/28/23 hydroxyzine HCl 10 mg tablet 10 mg PO QID PRN Allergic Symptoms 09/25/20 11/28/23 lorazepam 0.5 mg tablet 0.5 mg PO DAILY PRN Anxiety 09/25/20 11/28/23 nifedipine 60 mg tablet,extended 60 mg PO BID 09/25/20 11/28/23 release potassium chloride 20 mEq 20 meq PO DAILY 09/25/20 11/28/23 tablet,extended release <Randi Stinson PA-C - Last Filed: 01/21/24 23:51> Allergies/Adverse reactions: Allergies Allergy/AdvReac Type Severity Reaction Status Date / Time atorvastatin [From Lipitor] Allergy Mild myalgia Verified 01/21/24 19:38 fluvastatin [From Lescol] Allergy Mild Unknown Verified 01/21/24 19:38 pravastatin [From Pravachol] Allergy Mild Unknown Verified 01/21/24 19:38 rosuvastatin [From Crestor] Allergy Mild myalgia Verified 01/21/24 19:38 Penicillins Allergy Unknown Unknown Verified 01/21/24 19:38 IV CONTRAST DYE Allergy Mild CKD Uncoded 11/28/23 14:13 <Randi Stinson PA-C - Last Filed: 01/21/24 23:51> Review of Systems Review of Systems: CONSTITUTIONAL: Denies fever, chills, or sweats. EYES: Denies visual changes, redness, or discharge. ENT: Denies rhinorrhea, congestion, sore throat, or otalgia. CARDIOVASCULAR: Denies chest pain, palpitations, or edema. RESPIRATORY: Denies cough or dyspnea. GASTROINTESTINAL: Denies abdominal pain, nausea, vomiting, or diarrhea. GENITOURINARY: Denies dysuria or hematuria. SKIN: Denies rash or itching. MUSCULOSKELETAL: Denies back pain, joint pain, or myalgia. NEUROLOGIC: See HPI PSYCHIA
[2024-01-21] MEDS: SODIUM CHLORIDE 0.9% IV 1,000 ML 999 ML IV CONT (20:32)
[2024-01-21] MEDS: diphenhydrAMINE HCl INJ 50 MG/ML VIAL 25 MG IV PUSH (20:32)
[2024-01-21 20:34] LABS: Basophils Absolute Auto 0.1 K/mm3 (0.0-0.1); Basophils Percent Auto 0.6 % (0.2-1.2); Eosinophils Absolute Auto 0.1 K/mm3 (0-0.3); Eosinophils Percent Auto 0.9 % (0-4.4); Hematocrit 34.3 % (37.0-47.0); Hemoglobin 10.6 g/dL (12.0-15.0); Immature Granulocyte Absolute 0.03 K/mm3 (0.00-0.031); Immature Granulocyte Percent A 0.3 % (0-0.5); Lymphocytes Absolute Auto 1.63 K/mm3 (0.9-3.2); Lymphocytes Percent Auto 18.6 % (18.3-44.2); Mean Corpuscular HGB Conc 30.9 g/dl (32-36); Mean Corpuscular Hemoglobin 30.4 pg (26-34); Mean Corpuscular Volume 98.3 fl (80-100); Mean Platelet Volume 10.9 fl (7.4-10.4); Monocytes Absolute Auto 0.6 K/mm3 (0.1-0.6); Monocytes Percent Auto 6.3 % (2.6-8.5); Neutrophils Absolute Auto 6.4 K/mm3 (1.3-6.7); Neutrophils Percent Auto 73.3 % (45.5-73.1); Platelet Count Result 245 k/mm3 (150-375); Red Blood Count 3.49 M/mm3 (4.2-5.4); Red Cell Distribution Width 13.7 % (11.5-14.5); White Blood Count 8.8 K/mm3 (4.5-10.0)
[2024-01-21 20:48] LABS: INR 1.1; Prothrombin Time 14.9 Seconds (11.1-14.7)
[2024-01-21 20:49] LABS: Partial Thromboplastin Time 33.1 Seconds (22.3-36.8)
[2024-01-21 20:58] LABS: Alanine Aminotransferase 13 U/L (6-35); Albumin Level 4.6 g/dL (3.5-5.1); Alkaline Phosphatase 112 U/L (38-126); Anion Gap 9 mmol/L (4-12); Aspartate Amino Transferase 26 U/L (14-36); Bilirubin,Total 0.5 mg/dL (0.2-1.3); Blood Urea Nitrogen 41 mg/dL (7-17); Calcium 9.8 mg/dL (8.4-10.2); Carbon Dioxide 12 mmol/L (22-30); Chloride 118 mmol/L (98-107); Creatine Kinase 242 U/L (30-135); Estimated CRCL calculation 14 ml/min; Estimated Glomerular Filt Rate 24; Glucose 94 mg/dL (65-110); Potassium 6.6 mmol/L (3.4-5.0); Sodium 139 mmol/L (137-145); Troponin I 0.017 ng/mL (0.000-0.034)
[2024-01-21 21:17] LABS: Thyroid Stimulating Hormone 0.447 uIU/mL (0.465-4.680)
[2024-01-21] MEDS: ALBUTEROL SULFATE NEB 2.5 MG/3 ML INH 10 MG INHALATION (21:30)
[2024-01-21 21:33] LABS: Appearance Urine Clear (Clear); Bacteria Urine None Seen /hpf; Bilirubin Urine Negative (Negative); Blood Urine Negative (Negative); Color Urine Yellow (Yellow); Glucose Urine UA 2+ mg/dL (Negative); Ketones Urine Negative (Negative); Leukocyte Esterase Ur 2+ LEU/UL (Negative); Nitrate Urine Negative (Negative); Non Pathogenic Casts 0-2; Protein Urine 1+ mg/dL (Negative); RBC Urine 0-2 /hpf (0-2); Specific Grav Ur 1.011 (1.001-1.035); Squamous Epithelial Cell Urine Few /hpf (Few); Urobilinogen Urine 0.2 mg/dL (<2.0); WBC Urine 21-50 /hpf (0-3)
[2024-01-21 21:37] LABS: Add Urine Microscopic? YES
[2024-01-21 21:38] VITALS: PULSE 80; RESP 18
[2024-01-21 22:01] LABS: Fractional Inspired Oxygen 21 %; HCO3 VBG 15.9 mEq/l (24.0-30.0); PCO2 VBG 36.6 mmHg (42.0-48.0); pH VBG 7.256 (7.300-7.400)
[2024-01-21 22:02] LABS: Device ROOM AIR
[2024-01-21 22:37] LABS: Anion Gap 10 mmol/L (4-12); Blood Urea Nitrogen 39 mg/dL (7-17); Calcium 9.6 mg/dL (8.4-10.2); Carbon Dioxide 12 mmol/L (22-30); Chloride 120 mmol/L (98-107); Estimated CRCL calculation 14 ml/min; Estimated Glomerular Filt Rate 23; Glucose 81 mg/dL (65-110); Potassium 5.9 mmol/L (3.4-5.0); Sodium 142 mmol/L (137-145)
[2024-01-21 22:38] LABS: Magnesium 2.3 mg/dL (1.6-2.3); Phosphorus 4.2 mg/dL (2.5-4.5)
[2024-01-21] MEDS: INSULIN HUMAN REGULAR (*BKC) 100 UNITS/ML 10 UNITS IV PUSH (22:51)
[2024-01-21] MEDS: SODIUM POLYSTYRENE SULFONONATE 15 GM/60 ML BTL PO (22:59)
[2024-01-21] MEDS: DEXTROSE 50% 25 GM/50 ML SYRINGE IV PUSH (22:59)
--- NOTE | 2024-01-21 23:43 | PM.IMHP ---
H&P: HPI History of Present Illness Date/Time: 01/21/24 23:43 Chief Complaint: AMS Narrative: This is an 83-year-old female with past medical history significant for hypertension, chronic kidney disease, asthma/ COPD, GERD. patient was brought to the emergency room due to confusion, delirium, not been herself according to sons this has been ongoing for the last 2 weeks or so and just got worse over the course of the last couple of days. Patient is unable to provide any meaningful history she thinks that she is at another hospital can not tell why she is here. Preliminary workup was significant for urinalysis with numerous WBCs present. patient has been admitted for further evaluation management and treatment EXAMINATION: CT brain wo con DATE: 01/21/2024 21:12 INDICATION: AMS . TECHNIQUE: Computed tomography (CT) of the head was performed without intravenous contrast. The mA was adjusted according to patient size. Iterative reconstruction technique was employed. The dose-length product was 605.33 mGy-cm. COMPARISON: 11/02/2023. FINDINGS: No acute intracranial hemorrhage or extra-axial fluid collection. No hydrocephalus, mass, or herniation. No acute ischemic infarct. Unremarkable dural venous sinus attenuation. No acute osseous abnormality. The? aerated spaces are clear. Mild atrophy and chronic white matter change. Atherosclerotic intracranial calcification. Bilateral lens replacements. Focal old bilateral basal ganglia lacunar infarct. Small old left parietal infarct. IMPRESSION:? No acute intracranial process. EXAMINATION:? XR chest 1V portable Exam Date/Time:? 01/21/2024 20:35 CDT HISTORY: AMS ? Comparison:? 01/11/2018. RESULT: Lines, tubes, and devices:? None. Lungs and pleura:? Senescent/interstitial changes. Prominent pulmonary vessels. Bibasilar scar/atelectasis. Otherwise clear. Cardiomediastinal silhouette:? Stable. Other:? No acute osseous or upper abdominal finding. ? IMPRESSION: Mild interstitial edema versus senescent change. Pulmonary vascular congestion. Review of Systems Review of Systems: ROS unobtainable: Yes unobtainable due to mental status FOR[facility]LY [facility] Past Medical History Medical History Adenomatous colon polyp Allergic rhinitis Anemia Asthma Asthma-COPD overlap syndrome Brachial neuritis Congestive heart failure Contusion of lower leg Disorder of rotator cuff Disorder of vitamin B12 Edema Epigastric pain ESR raised Essential hypertension Fracture of humerus Generalized osteoarthritis of multiple sites GERD (gastroesophageal reflux disease) Gout Hemoglobin A1c less than 7.0% per pt A1c was 6.7 around Sep 2020 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) Indigestion Lower abdominal pain Neck pain Osteitis pubis Pain, joint, ankle and foot Pure hypercholesterolemia Seronegative spondyloarthropathy (~2016) Shoulder joint pain Sleep apnea, unspecified Type 2 diabetes mellitus Unintentional weight loss Ventral incisional hernia Surgical History Surgical History History of left cataract extraction History of right cataract extraction Family History Family History (Updated 01/22/24 @ 02:22 by Judi Jones RN) Mother Hypertension Unknown Family history of stroke Other Diabetes mellitus Family history of allergic disorder Family history of cardiovascular disease Family history of sleep apnea Social History Social History Smoking status: Never smoker Second hand tobacco smoke exposure: No (PREVIOUSLY, STOPPED SMOKING YEARS AGO) Alcohol intake: never Substance use: never Substance use type: does not use Do You Feel Safe in your Home?: Yes Lack of Transportation: No Lack of Food: Never True Current Housing: [facility]
[2024-01-22] VITALS (11 sets, daily range): BP systolic 110–153; BP diastolic 36–93; PULSE 62–101; RESP 16–20; TEMP 36.3–37.2; O2SAT 95–98; BMI 25.5
--- NOTE | 2024-01-22 02:20 | ADMGEN ---
This patient, Madyson Giraldo, was admitted to Medical Room 346-01. Patient/family oriented to hospital policies and general routines including ID bracelet, bed and alarms, visiting hours, pain management, procedures, bathroom and other care routines, personal items, smoking policy, room service/diet, and visiting hours. Information on how to activate the Rapid Response Team has been discussed. Patient/Family are encouraged to report perceived risks to care and to ask questions if they do not understand what they are told or what they should do.
[2024-01-22 02:51] LABS: Anion Gap 14 mmol/L (4-12); Blood Urea Nitrogen 35 mg/dL (7-17); Calcium 9.5 mg/dL (8.4-10.2); Carbon Dioxide 8 mmol/L (22-30); Chloride 121 mmol/L (98-107); Estimated CRCL calculation 14 ml/min; Estimated Glomerular Filt Rate 24; Glucose 89 mg/dL (65-110); Sodium 143 mmol/L (137-145)
--- NOTE | 2024-01-22 07:35 | PM.IMPN ---
Progress Note: A&P Assessment and Plan (1) UTI (urinary tract infection): Code(s): N39.0 - Urinary tract infection, site not specified Status: Acute Assessment and Plan: admit to regular medical floor patient started on Rocephin await cultures (2) Altered mental status: Qualifiers: Altered mental status type: unspecified Qualified Code(s): R41.82 - Altered mental status, unspecified Code(s): R41.82 - Altered mental status, unspecified Status: Acute Assessment and Plan: likely secondary to 1. Supportive care (3) Hyperkalemia: Code(s): E87.5 - Hyperkalemia Status: Acute Assessment and Plan: -initial potassium 6.6 on arrival, improved 5 this morning after administration IV glucose, IV insulin, 2 L of IV fluids and Lokelma (4) Metabolic acidosis: Code(s): E87.20 - Acidosis, unspecified Status: Acute Assessment and Plan: 01/21: -carbon dioxide 12 arrival, down to eat this morning with a rise in anion gap. -VBG shows metabolic acidosis with partial compensation pH 7.256, HC03 15.9 and pCO2 36.6. Will repeat this morning. -insert Leija catheter, collect urine labs, consult Nephrology, administration IV bicarb and begin IV bicarb drip. -check for salicylates, urine drug screen, methyl alcohol -repeat VBG shows full compensation with a slightly further decline in pCO2 to 32 (5) Obstructive sleep apnea: Code(s): G47.33 - Obstructive sleep apnea (adult) (pediatric) Status: Acute Assessment and Plan: CPAP at nighttime (6) Asthma-COPD overlap syndrome: Code(s): J44.9 - Chronic obstructive pulmonary disease, unspecified Status: Acute Assessment and Plan: not actively wheezing (7) HTN (hypertension): Code(s): I10 - Essential (primary) hypertension Status: Acute Assessment and Plan: resume home meds as needed (8) Chronic kidney disease, stage 4 (severe): Code(s): N18.4 - Chronic kidney disease, stage 4 (severe) Status: Acute Assessment and Plan: - BUN and creatinine at patient's baseline - nephrology consulted (9) Weight loss: Code(s): R63.4 - Abnormal weight loss Status: Acute Assessment and Plan: -patient denies intentional weight loss but BMI has come down between 30-35 down to 25.5 over unknown length of time -patient poor historian regarding further information about weight loss -patient is on Jardiance no history of diabetes suspect this is only for CHF but may contribute to weight loss and worsening CKD? Time Spent With Patient Time with patient: Greater than 35 minutes Subjective Date/time seen: 01/22/24 07:35 Interval history: This is an 83-year-old female patient who was admitted to the hospital for confusion abnormal behavior ongoing for the last 2 weeks. In the emergency department patient was found to have a likely urinary tract infection and was started on Rocephin and admitted to the hospital. On further review of labs patient also had metabolic acidosis with partial respiratory compensation. Serum carbon dioxide as low as 8 this morning with anion gap of 14. This is likely chronic given degree of chronic kidney disease and degree of compensation. Patient also found to have potassium of 6.6 initially in the ER which was treated with D50, insulin and Lokelma. Potassium 5 this morning. Patient reports that she feels fine has no pain no shortness of breath and no other symptoms at this time but she admits that she has been confused and does not remember why she was brought to the hospital or why she was admitted. Leija catheter was inserted today in order to capture urine labs prior to initiation of bicarbonate. Nephrology consulted. Patient received 1 amp sodium bicarb and initiated a drip at 50 mL/hr. Additional labs were drawn to assess for exogenous causes of metabolic acidosis including salicylates, urine drug screen to jin
[2024-01-22 08:06] LABS: Fractional Inspired Oxygen 21 %; HCO3 VBG 15.8 mEq/l (24.0-30.0); PCO2 VBG 32.5 mmHg (42.0-48.0); PO2 VBG 34.6 mmHg (35.0-45.0); pH VBG 7.306 (7.300-7.400)
[2024-01-22 08:07] LABS: Device ROOM AIR
[2024-01-22 08:16] LABS: Glucose Point of Care 80 mg/dl (65-105)
[2024-01-22] MEDS: SODIUM BICARBONATE 8.4% 50 MEQ/50 ML SYRINGE IV PUSH (08:19)
[2024-01-22] MEDS: SODIUM BICARBONATE 8.4% 150 MEQ in DEXTROSE 5% 1,000 ML 950 ML 50 MEQ IV CONT (08:21)
[2024-01-22] MEDS: IRBESARTAN 150 MG TABLET 300 MG PO (08:26)
[2024-01-22] MEDS: hydrALAZINE HCL 50 MG TABLET PO (08:27)
[2024-01-22] MEDS: METOPROLOL TARTRATE 50 MG TAB 100 MG PO (08:27)
[2024-01-22] MEDS: ATORVASTATIN 40 MG TABLET PO (08:27)
[2024-01-22 08:28] LABS: Beta-Hydroxybutyrate/Acetoacetate 0.17 mmol/L (0.02-0.27)
[2024-01-22] MEDS: NIFEdipine 30 MG TAB.ER.24 90 MG PO (08:28)
[2024-01-22 08:34] LABS: Acetaminophen < 10 ug/mL (10-30); Ethanol < 10 mg/dL (<10); Salicylate < 1.0 mg/dL (2-20)
[2024-01-22 08:38] LABS: Potassium Urine Random 18.9 meq/L; Sodium Urine Random 113 meq/L; Total Protein Urine Random 40 mg/dL; Urea Random Urine 333 MG/DL
[2024-01-22 08:46] LABS: Parathyroid Intact 162.9 pg/mL (7.5-53.5)
[2024-01-22 08:46] LABS: Amphetamine Screen Urine Negative (Negative); Barbiturate Screen Urine Negative (Negative); Benzodiazepines Screen Urine Negative (Negative); Cannabinoid Screen Urine Negative (Negative); Cocaine Screen Urine Negative (Negative); Methadone Screen Urine Negative (Negative); Opiate Screen Urine Negative (Negative); Phencyclidine Screen Urine Negative (Negative)
[2024-01-22 10:17] LABS: Hemoglobin A1C 5.2 % (<5.7)
--- NOTE | 2024-01-22 11:23 | PM.CNNEP ---
Assessment and Plan Assessment and plan (1) Chronic kidney disease, stage 4 (severe): Code(s): N18.4 - Chronic kidney disease, stage 4 (severe) Status: Acute Assessment and Plan: The patient has chronic kidney disease. This is likely due to hypertension. Her kidney function is at its baseline in the mid 20s. (2) Hyperkalemia: Code(s): E87.5 - Hyperkalemia Status: Acute Assessment and Plan: The patient had hyperkalemia. Etiology of this is unclear. She does have a bladder infection which may have led to acidosis and possibly that triggered the high potassium. She does not seem to a been eating a lot of high potassium foodsrt She is on chlorthalidone which should help the potassium but she is also on irbesartan which may remote hyperkalemia at times. Her potassium for this had always been okay. Now that she has had this hyperkalemic episode, I think going forward we should probably not use irbesartan. Discussed with ELAINE Daniel (3) Metabolic acidosis: Code(s): E87.20 - Acidosis, unspecified Status: Acute Assessment and Plan: Patient has a low bicarbonate. It was low when she came into the hospital. With the IV fluids it dropped a little more because of the dilution. Her anion gap is 14 and her baseline is around 9 or 10, although it seems to have varied over the years. So the delta anion gap is around 4. The delta bicarb however wa about 10 on admission and 14 this morning. So she has a mixed metabolic acidosis some anion gap and mostly non anion gap. She has not had diarrhea to explain the low bicarbonate. Possibly the UTI has produced a hyper catabolic state. Most likely this is due to poor excretion of ammonia. She probably has some production of uremic toxins as well. Lactic acid level was okay and the beta hydroxybutyrate were okay as well. I do not think she consumed any of the non ethanol alcohols. At this point giving her bicarbonate is a good idea because her bicarbonate level is quite low and with her chronic kidney disease she will not generate bicarbonate very quickly. (4) UTI (urinary tract infection): Code(s): N39.0 - Urinary tract infection, site not specified Status: Acute Assessment and Plan: The patient has pyuria. The patient is on antibiotics. Urine culture is pending (5) Altered mental status: Qualifiers: Altered mental status type: unspecified Qualified Code(s): R41.82 - Altered mental status, unspecified Code(s): R41.82 - Altered mental status, unspecified Status: Acute Assessment and Plan: Improved (6) Secondary hyperparathyroidism, not elsewhere classified: Code(s): E21.1 - Secondary hyperparathyroidism, not elsewhere classified Status: Acute Assessment and Plan: check phos in am (7) HTN (hypertension): Code(s): I10 - Essential (primary) hypertension Status: Acute Assessment and Plan: BP 140 to 160. Will be stopping irbesartan. Will restart chlorthalidone. (8) Renal osteodystrophy: Code(s): N25.0 - Renal osteodystrophy Status: Acute Assessment and Plan: Her phosphorus in the History of Present Illness Reason for Consult Consult date: 01/22/24 Chief Complaint Chief complaint: nausea/confusion History of Present Illness Narrative: Madyson is a very pleasant 83-year-old lady who has multiple medical problems include chronic kidney disease with a baseline creatinine in the mid 20s, hypertension, GERD, anemia, renal osteodystrophy, asthma/COPD, congestive heart failure, sleep apnea, diabetes, seronegative spondyloarthropathy, hyperuricemia, history of gout, who was in her usual state of health until yesterday. The patient developed changes in mental status. Her children brought her over to the ER. In the ER she was evaluated. CT brain was unremarkable. Urine showed pyuria. Potassium was high and bicarbonate wa
[2024-01-22 12:34] LABS: Glucose Point of Care 98 mg/dl (65-105)
[2024-01-22] MEDS: CHLORTHALIDONE 25 MG TABLET PO (16:56)
[2024-01-23] VITALS: PULSE 80
[2024-01-23] MEDS: MELATONIN 5 MG TABLET PO (00:30)
[2024-01-23 04:00] VITALS: PULSE 70
[2024-01-23 05:43] LABS: Basophils Percent Auto 0.5 % (0.2-1.2); Eosinophils Absolute Auto 0.1 K/mm3 (0-0.3); Eosinophils Percent Auto 1.2 % (0-4.4); Hematocrit 29.2 % (37.0-47.0); Hemoglobin 9.4 g/dL (12.0-15.0); Immature Granulocyte Absolute 0.03 K/mm3 (0.00-0.031); Immature Granulocyte Percent A 0.4 % (0-0.5); Lymphocytes Absolute Auto 1.49 K/mm3 (0.9-3.2); Lymphocytes Percent Auto 20.4 % (18.3-44.2); Mean Corpuscular HGB Conc 32.2 g/dl (32-36); Mean Corpuscular Hemoglobin 30.5 pg (26-34); Mean Corpuscular Volume 94.8 fl (80-100); Monocytes Absolute Auto 0.5 K/mm3 (0.1-0.6); Monocytes Percent Auto 7.1 % (2.6-8.5); Neutrophils Absolute Auto 5.1 K/mm3 (1.3-6.7); Neutrophils Percent Auto 70.4 % (45.5-73.1); Platelet Count Result 212 k/mm3 (150-375); Red Blood Count 3.08 M/mm3 (4.2-5.4); Red Cell Distribution Width 13.6 % (11.5-14.5); White Blood Count 7.3 K/mm3 (4.5-10.0)
[2024-01-23 05:57] LABS: Potassium 4.5 mmol/L (3.4-5.0)
[2024-01-23 05:59] LABS: Alanine Aminotransferase 12 U/L (6-35); Albumin Level 3.4 g/dL (3.5-5.1); Alkaline Phosphatase 99 U/L (38-126); Anion Gap 6 mmol/L (4-12); Aspartate Amino Transferase 23 U/L (14-36); Bilirubin,Total 0.4 mg/dL (0.2-1.3); Blood Urea Nitrogen 24 mg/dL (7-17); Calcium 8.7 mg/dL (8.4-10.2); Carbon Dioxide 21 mmol/L (22-30); Chloride 111 mmol/L (98-107); Estimated CRCL calculation 18 ml/min; Estimated Glomerular Filt Rate 32; Glucose 97 mg/dL (65-110); Magnesium 2.1 mg/dL (1.6-2.3); Phosphorus 3.7 mg/dL (2.5-4.5); Sodium 138 mmol/L (137-145)
[2024-01-23 06:00] VITALS: BP 141/74; PULSE 72; RESP 20; TEMP 36.1; O2SAT 98
[2024-01-23 08:00] VITALS: PULSE 72
[2024-01-23] MEDS: ATORVASTATIN 40 MG TABLET PO (09:35)
[2024-01-23] MEDS: CHLORTHALIDONE 25 MG TABLET PO (09:35)
[2024-01-23 09:36] VITALS: PULSE 70
[2024-01-23] MEDS: METOPROLOL TARTRATE 50 MG TAB 100 MG PO (09:36)
[2024-01-23] MEDS: ENOXAPARIN 30 MG/0.3 ML SYRINGE SUB-Q (09:36)
[2024-01-23] MEDS: hydrALAZINE HCL 50 MG TABLET PO (09:36)
[2024-01-23] MEDS: NIFEdipine 30 MG TAB.ER.24 90 MG PO (09:36)
[2024-01-23 10:13] LABS: Ionized Calcium 4.9 mg/dL (4.7-5.5)
--- NOTE | 2024-01-23 10:32 | PM.DS ---
DS: Admitting Diagnosis Discharge Date 01/23/2024 Admitting Diagnosis UTI, altered mental status, obstructive sleep apnea, asthma COPD overlap syndrome, hypertension, CKD stage 4 DS: Discharge Diagnosis Discharge Diagnosis (1) UTI (urinary tract infection): Code(s): N39.0 - Urinary tract infection, site not specified Status: Acute (2) Altered mental status: Qualifiers: Altered mental status type: unspecified Qualified Code(s): R41.82 - Altered mental status, unspecified Code(s): R41.82 - Altered mental status, unspecified Status: Acute (3) Hyperkalemia: Code(s): E87.5 - Hyperkalemia Status: Acute (4) Metabolic acidosis: Code(s): E87.20 - Acidosis, unspecified Status: Acute (5) Obstructive sleep apnea: Code(s): G47.33 - Obstructive sleep apnea (adult) (pediatric) Status: Acute (6) Asthma-COPD overlap syndrome: Code(s): J44.9 - Chronic obstructive pulmonary disease, unspecified Status: Acute (7) HTN (hypertension): Code(s): I10 - Essential (primary) hypertension Status: Acute (8) Chronic kidney disease, stage 4 (severe): Code(s): N18.4 - Chronic kidney disease, stage 4 (severe) Status: Chronic (9) Weight loss: Code(s): R63.4 - Abnormal weight loss Status: Acute DS: Summary Hospital Course Hospital Course: This is an 83-year-old female patient history of chronic kidney disease who was brought to the hospital by her children for not acting right for about 2 weeks. Patient found to have urinary tract infection and was admitted for antibiotics. She also was found to have significant metabolic acidosis and was started on bicarb drip. Urine culture results with pansensitive E coli. She will be transitioned to oral cefdinir tomorrow. I spoke with Nephrology who consulted on this patient and they were good with discharge to since carbon dioxide in the chemistry panel had improved from 8 to 21. Patient's level consciousness vastly improved she states she still occasional mild confusion but otherwise is feeling nearly completely normal. Status at Discharge Cognitive/behavioral status at discharge: Awake alert oriented and very pleasant Functional status at discharge: independent ambulation Overall status at discharge: patient is progressing back to baseline Time Spent with Patient Time attestation: Total time spent providing and/or coordinating discharge services: 40 minutes Time spent: Greater than 30 minutes Exam Narrative: patient is laying in a stretcher Const: General: comfortable, no acute distress, well developed, alert, awake, confusion and average body habitus Nutritional Appearance: average body habitus Orientation/consciousness: oriented to person and confusion Other: well-appearing HENMT: Head: normal to inspection, normocephalic and atraumatic Ears: hearing grossly normal bilaterally Face/Nose/Sinus: normal facial exam Face and sinus: normal facial exam Eyes: General: appearance normal, both eyes and all related structures Pupils: Equal, round and reactive pupils present EOM: EOMs intact bilaterally Neck: Neck: full ROM, no lymphadenopathy and no JVD Thyroid: thyroid normal Lymphatic: no lymphadenopathy noted Resp: Effort & Inspection: normal respiratory effort and able to speak in complete sentences Auscultation: clear to auscultation bilaterally Cardio: Jugular venous distension: no JVD Rate: regular rate Rhythm: regular rhythm Heart sounds: S1 normal heart sound present and S2 normal heart sound present : General: Yes deferred Urinary Catheter: Urinary Catheter: patent and draining Skin: Rashes: no rashes Wounds: no wounds Neuro: General: oriented to person, CN's II-XI intact bilaterally, confusion and Unable to assess gait Cranial nerves: Yes CN's II-XII intact bilaterally and Yes Equal, round and reactive pupils present Cognition (Neuro): normal c
--- NOTE | 2024-01-23 11:17 | PM.PNNEP ---
Progress Note: A&P Assessment and Plan (1) Chronic kidney disease, stage 4 (severe): Code(s): N18.4 - Chronic kidney disease, stage 4 (severe) Status: Chronic Assessment and Plan: stable baseline creatinine seems to run ~ 1.8 -0 2.2mg/dl (but has been as high as 2.6mg/dl) likely secondary to hypertension, diabetes, vascular disease, YAMILKA, and age-related change based on outpatient evaluation (2) Hyperkalemia: Code(s): E87.5 - Hyperkalemia Status: Acute Assessment and Plan: resolved suspect secondary to metabolic acidosis from bladder infection/UTI use of irbesartan may have also contributed as well off ARB back on chlorthalidone follow trend (3) Metabolic acidosis: Code(s): E87.20 - Acidosis, unspecified Status: Acute Assessment and Plan: resolved was on bicarbonate fluid on admission continue to monitor (4) UTI (urinary tract infection): Code(s): N39.0 - Urinary tract infection, site not specified Status: Acute Assessment and Plan: urine culture with Group B Strep on antibiotics (5) Altered mental status: Qualifiers: Altered mental status type: unspecified Qualified Code(s): R41.82 - Altered mental status, unspecified Code(s): R41.82 - Altered mental status, unspecified Status: Acute Assessment and Plan: improved if not resolved presumably secondary to infection (6) HTN (hypertension): Code(s): I10 - Essential (primary) hypertension Status: Acute Assessment and Plan: reasonable control follow trend of hemodynamics Will continue to follow. Subjective Date/time seen: 01/23/24 11:17 Interval history: Follow-up for hyperkalemia and chronic kidney disease. Chart reviewed -- assuming care from Dr. Juarez; potassium level has improved in the last 24 hours; overall, she states she feels significantly better as well; no issues/events overnight or earlier this morning; no apparent distress voiced at the time of my visit. Exam Narrative: General: elderly but WD/WN female in NAD Heart: normal S1 and S2; no rub Lungs: clear to auscultation Abdomen: soft, nontender, nondistended, positive bowel sounds Extremities: no cyanosis or clubbing; no edema Skin: warm and dry Objective Data Vital Signs Vital Signs: Vital Signs Temp Pulse Resp BP Pulse Ox O2 Del Method 01/23/24 08:00 Room Air 01/23/24 09:36 70 01/23/24 06:00 97.0 F L 72 20 141/74 H 98 01/23/24 04:00 70 01/23/24 00:00 80 01/22/24 22:00 98.9 F 76 20 150/46 H 98 01/22/24 20:00 63 16 95 Room Air 01/22/24 20:00 72 01/22/24 16:00 63 01/22/24 14:29 97.3 F L 80 16 110/36 L 95 Intake/Output Intake/Output: Intake & Output 01/20/24 01/21/24 01/22/24 01/23/24 23:59 23:59 23:59 23:59 Intake Total 500 1070 840 Output Total 700 1600 Balance 500 370 -760 Meds/Results Medications: Active Medications Generic Name Dose Route Start Last Admin Trade Name Freq PRN Reason Stop Dose Admin Atorvastatin Calcium 40 mg 01/22/24 09:00 01/23/24 09:35 Atorvastatin 40 Mg Tablet PO 40 mg DAILY MP Administration Chlorthalidone 25 mg 01/22/24 11:45 01/23/24 09:35 Chlorthalidone 25 Mg Tablet PO 25 mg DAILY MP Administration Enoxaparin Sodium 30 mg 01/23/24 09:00 01/23/24 09:36 Enoxaparin 30 Mg/0.3 Ml Syringe SUB-Q 30 mg DAILY MP Administration Hydralazine HCl 50 mg 01/22/24 09:00 01/23/24 09:36 Hydralazine Hcl 50 Mg Tablet PO 50 mg DAILY MP Administration Ceftriaxone Sodium 1 gm in 50 mls @ 100 mls/hr 01/23/24 13:00 Rocephin 1 Gm/Ns 50 Ml IVPB Q24H MP Metoprolol Tartrate 100 mg 01/22/24 09:00 01/23/24 09:36 Metoprolol Tartrate 50 Mg Tab PO 100 mg DAILY MP Administration Nifedipine 90 mg 01/22/24 09:00 01/23/24 09:36 Nifed
--- NOTE | 2024-01-23 11:17 | P.PNNP_ITS ---
Progress Note: A&P Assessment and Plan (1) Chronic kidney disease, stage 4 (severe): Code(s): N18.4 - Chronic kidney disease, stage 4 (severe) Status: Chronic Assessment and Plan: * stable * baseline creatinine seems to run ~ 1.8 -0 2.2mg/dl (but has been as high as 2.6mg/dl) * likely secondary to hypertension, diabetes, vascular disease, YAMILKA, and age- related change based on outpatient evaluation (2) Hyperkalemia: Code(s): E87.5 - Hyperkalemia Status: Acute Assessment and Plan: * resolved * suspect secondary to metabolic acidosis from bladder infection/UTI * use of irbesartan may have also contributed as well * off ARB * back on chlorthalidone * follow trend (3) Metabolic acidosis: Code(s): E87.20 - Acidosis, unspecified Status: Acute Assessment and Plan: * resolved * was on bicarbonate fluid on admission * continue to monitor (4) UTI (urinary tract infection): Code(s): N39.0 - Urinary tract infection, site not specified Status: Acute Assessment and Plan: * urine culture with Group B Strep * on antibiotics (5) Altered mental status: Qualifiers: Altered mental status type: unspecified Qualified Code(s): R41.82 - Altered mental status, unspecified Code(s): R41.82 - Altered mental status, unspecified Status: Acute Assessment and Plan: * improved if not resolved * presumably secondary to infection (6) HTN (hypertension): Code(s): I10 - Essential (primary) hypertension Status: Acute Assessment and Plan: * reasonable control * follow trend of hemodynamics Will continue to follow. Subjective Date/time seen: 01/23/24 11:17 Interval history: Follow-up for hyperkalemia and chronic kidney disease. Chart reviewed -- assuming care from Dr. Juarez; potassium level has improved in the last 24 hours; overall, she states she feels significantly better as well; no issues/events overnight or earlier this morning; no apparent distress voiced at the time of my visit. Exam Narrative: General: elderly but WD/WN female in NAD Heart: normal S1 and S2; no rub Lungs: clear to auscultation Abdomen: soft, nontender, nondistended, positive bowel sounds Extremities: no cyanosis or clubbing; no edema Skin: warm and dry Objective Data Vital Signs Vital Signs: Vital Signs Temp Pulse Resp BP Pulse Ox O2 Del Method 01/23/24 08:00 Room Air 01/23/24 09:36 70 01/23/24 06:00 97.0 F L 72 20 141/74 H 98 01/23/24 04:00 70 01/23/24 00:00 80 01/22/24 22:00 98.9 F 76 20 150/46 H 98 01/22/24 20:00 63 16 95 Room Air 01/22/24 20:00 72 01/22/24 16:00 63 01/22/24 14:29 97.3 F L 80 16 110/36 L 95 Intake/Output Intake/Output: Intake & Output 01/20/24 01/21/24 01/22/24 01/23/24 23:59 23:59 23:59 23:59 Intake Total 500 1070 840 Output Total 700 1600 Balance 500 370 -760 Meds/Results Medications: Active Medications Generic Name Dose Route Start Last Admin Trade Name Freq PRN Reason Stop Dose Admin Atorvast
[2024-01-23 13:33] LABS: Osmolality, Urine 393 mOsm/kg (50-1200)
--- NOTE | 2024-01-23 14:37 | PC.NURSE ---
due to pt forgetfulness dc instructions also reviewed with pt's son
[2024-01-25 06:39] LABS: Chloride Rand Ur 113 mmol/L (32-290); Chloride/Creatinine Rand Ur 185 (38-318); Creatinine Random Urine 61 mg/dL (20-275)
[2024-02-10 09:56] LABS: Calculated Total (E+NE) 41 (9-74); Creatinine, Urine 59 mg/dL (20-275); Dopamine, Urine 374 (40-390); Epinephrine, Urine <3 (2-16); Norepinephrine, Urine 41 (7-65)
== END 2024-01-23 14:38 | disposition home or self-care (01) | DRG 690 ==
LOC: ANHED 23:51 → ANH3MED 01-22 01:50
PROVIDERS: Internal Medicine; Admitting Provider Internal Medicine; Emergency Provider Physician Assistant; PCP Internal Medicine; Visit Provider Nurse Practitioner
DX: N39.0 Urinary tract infection, site not specified (principal); I13.0 Hypertensive heart and chronic kidney disease with heart failure and stage 1 through stage 4 chronic kidney disease, or unspecified chronic kidney disease; N18.4 Chronic kidney disease, stage 4 (severe); E87.20 Acidosis, unspecified; N25.0 Renal osteodystrophy; I50.9 Heart failure, unspecified; E87.5 Hyperkalemia; E78.5 Hyperlipidemia, unspecified; E78.00 Pure hypercholesterolemia, unspecified; J44.9 Chronic obstructive pulmonary disease, unspecified; K21.9 Gastro-esophageal reflux disease without esophagitis; M15.9 Polyosteoarthritis, unspecified; G47.33 Obstructive sleep apnea (adult) (pediatric); R63.4 Abnormal weight loss; Z86.73 Personal history of transient ischemic attack (TIA), and cerebral infarction without residual deficits; Z86.010 Personal history of colon polyps
CPT/HCPCS: 36415; 70450; 71045; 80048; 80053; 80307; 81001; 81050; 82010; 82330; 82384; 82436; 82550; 82570; 82803; 82948; 83036; 83605; 83735; 83935; 83970; 84100; 84105; 84133; 84156; 84300; 84439; 84443; 84484; 84540; 84600; 85025; 85610; 85730; 87040; 87077; 87086; 87088; 93005; 94640; 96374; 96375; 99285; A9270; J0696; J1200; J1650; J1815; J7030; J7070; J7120

== ENCOUNTER 2024-04-20 12:34 | Emergency (ER) | payer MEDICARE, SELFPAY ==
--- NOTE | ~2024-04-20 | CT_ITS ---
EXAMINATION: CT brain wo con DATE: 04/20/2024 13:34 INDICATION: Fall. TECHNIQUE: Computed tomography (CT) of the head was performed without intravenous contrast. The mA wa s adjusted according to patient size. Iterative reconstruction technique was employed. The dose-lengt h product was 605.33 mGy-cm. COMPARISON: Head CT 01/21/2024 FINDINGS: There are old infarcts in the right basal ganglia. There are scattered areas of low attenua tion in the cerebral white matter. There is no intracranial hemorrhage, acute infarction, or abnormal intracranial mass lesion. There is an old infarct in the left parietal lobe. The ventricles are norm al in size. The paranasal sinuses are clear. There is a right otomastoid effusion. IMPRESSION: 1. 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 2. Stable moderate nonspecific cerebral white matter disease, which likely represents chronic small v essel ischemic disease. 3. Right otomastoid effusion. Reviewed, dictated and finalized at location A. IMPRESSION: 1. 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 2. Stable moderate nonspecific cerebral white matter disease, which likely repr esents chronic small vessel ischemic disease. 3. Right otomastoid effusion.
--- NOTE | ~2024-04-20 | XR_ITS ---
EXAMINATION: XR hip LT min 3V w AP pelvis DATE: 04/20/2024 13:28 INDICATION: Left hip pain. Fall. TECHNIQUE: An anteroposterior view of the pelvis and 3 views of left hip were obtained. COMPARISON: Pelvis and hip radiographs 12/02/2020 FINDINGS: Bone alignment is normal. No fracture. There is severe lumbar spondylosis. There is mild le ft hip osteoarthritis. Osteitis pubis is noted. IMPRESSION: 1. Mild left hip osteoarthritis. Reviewed, dictated and finalized at location A.
--- NOTE | ~2024-04-20 | XR_ITS ---
EXAMINATION: XR ribs LT 2V w CXR 2V DATE: 04/20/2024 13:27 INDICATION: Left chest pain. Fall. TECHNIQUE: Frontal and lateral views of the chest and 2 views on 3 radiographs of the left ribs were obtained. COMPARISON: Chest single view 01/21/2024 FINDINGS: CHEST TWO VIEWS: There is no pneumonia, pleural effusion, or pneumothorax. Cardiomegaly is noted. LEFT RIBS: There is no left rib fracture. IMPRESSION: 1. No rib fracture. 2. Cardiomegaly. Reviewed, dictated and finalized at location A.
--- NOTE | 2024-04-20 12:56 | ED.FALL ---
HPI - Fall General Chief Complaint: Fall Stated Complaint: glf Time Seen by Provider: 04/20/24 12:44 Source: patient Mode of arrival: ambulatory Limitations: no limitations History of Present Illness HPI Narrative: Patient was blowing her deck, lost her balance and fell on a flat surface, no loss of consciousness, complaining of left-sided pain mainly left ribs and left hip. She denies other injuries. Related Data Home Medications Medication Instructions Recorded Confirmed atorvastatin 40 mg tablet 40 mg PO DAILY 09/25/20 01/22/24 hydralazine 50 mg tablet 50 mg PO DAILY 01/22/24 01/22/24 metoprolol tartrate 100 mg tablet 100 mg PO DAILY 01/22/24 01/22/24 Allergies Allergy/AdvReac Type Severity Reaction Status Date / Time atorvastatin [From Lipitor] Allergy Mild myalgia Verified 04/20/24 12:36 fluvastatin [From Lescol] Allergy Mild Unknown Verified 04/20/24 12:36 pravastatin [From Pravachol] Allergy Mild Unknown Verified 04/20/24 12:36 rosuvastatin [From Crestor] Allergy Mild myalgia Verified 04/20/24 12:36 Penicillins Allergy Unknown Unknown Verified 04/20/24 12:36 IV CONTRAST DYE Allergy Mild CKD Uncoded 04/20/24 12:36 Review of Systems Review of Systems: All systems reviewed & are unremarkable except as noted in HPI and below PMFSH Past Medical History Medical History Adenomatous colon polyp Allergic rhinitis Anemia Asthma Asthma-COPD overlap syndrome Brachial neuritis Congestive heart failure Contusion of lower leg Disorder of rotator cuff Disorder of vitamin B12 Edema Epigastric pain ESR raised Essential hypertension Fracture of humerus Generalized osteoarthritis of multiple sites GERD (gastroesophageal reflux disease) Gout Hemoglobin A1c less than 7.0% per pt A1c was 6.7 around Sep 2020 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) Indigestion Lower abdominal pain Neck pain Osteitis pubis Pain, joint, ankle and foot Pure hypercholesterolemia Seronegative spondyloarthropathy (~2016) Shoulder joint pain Sleep apnea, unspecified Type 2 diabetes mellitus Unintentional weight loss Ventral incisional hernia Surgical History Surgical History History of left cataract extraction History of right cataract extraction Family History Family History Mother Hypertension Unknown Family history of stroke Other Diabetes mellitus Family history of allergic disorder Family history of cardiovascular disease Family history of sleep apnea Social History Social History Smoking status: Never smoker Second hand tobacco smoke exposure: No (PREVIOUSLY, STOPPED SMOKING YEARS AGO) Alcohol intake: never Substance use: never Substance use type: does not use Do You Feel Safe in your Home?: Yes Lack of Transportation: No Lack of Food: Never True Current Housing: I Have Housing Concerned About Future Housing: No Difficulty Paying Gas/Electric Bills: No Difficulty Paying for Meds: No Currently Unemployed: No Education: High School Diploma/GED Difficulty w/ Childcare or Family Care: No Living arrangements: with family Occupation/Education: retired Gender identity (if verbalized by the patient): Female Sexual Orientation (if Verbalized by the Patient): Straight or Heterosexual Spiritual care concerns: No Exam Narrative: General appearance: Well-developed, well-nourished Skin: Normal color, no bruises or swelling or rash Head: Normocephalic, nontraumatic Eyes: Clear conjunctiva ENT: Oropharynx normal, ears normal, nose normal Neck: Supple, nontender Chest and respiratory: Airway patent, no respiratory distress, no accessory muscle use, no localized tenderness or bruises or rash Heart: Regular rate/rhythm Abdomen: Soft,
[2024-04-20 12:59] VITALS: BP 144/69; PULSE 67; RESP 19; TEMP 36.7; O2SAT 97
[2024-04-20] MEDS: HYDROcodone/acetaminophen (*CRX) 5-325 MG TABLET 1 TAB PO (13:45)
[2024-04-20] MEDS: IBUPROFEN 600 MG TABLET PO (13:45)
[2024-04-20 14:27] VITALS: BP 144/69; PULSE 98; RESP 16; TEMP 36.3; O2SAT 98
== END 2024-04-20 14:42 | disposition home or self-care (01) ==
PROVIDERS: Emergency Provider Emergency Medicine; PCP Internal Medicine
DX: T14.8XXA Other injury of unspecified body region, initial encounter (principal); J44.9 Chronic obstructive pulmonary disease, unspecified; I50.9 Heart failure, unspecified; I11.0 Hypertensive heart disease with heart failure; E11.9 Type 2 diabetes mellitus without complications; E78.00 Pure hypercholesterolemia, unspecified; K21.9 Gastro-esophageal reflux disease without esophagitis; M10.9 Gout, unspecified; G47.30 Sleep apnea, unspecified; Z86.010 Personal history of colon polyps; Z98.42 Cataract extraction status, left eye; Z98.41 Cataract extraction status, right eye; Z79.899 Other long term (current) drug therapy; Z79.84 Long term (current) use of oral hypoglycemic drugs; W18.39XA Other fall on same level, initial encounter; M16.12 Unilateral primary osteoarthritis, left hip; R90.82 White matter disease, unspecified; I51.7 Cardiomegaly
CPT/HCPCS: 70450; 71046; 71100; 73502; 99284; A9270

== ENCOUNTER 2024-10-23 18:52 | Inpatient (IN) | payer MEDICARE, SELFPAY ==
--- NOTE | ~2024-10-23 | MR_ITS ---
EXAMINATION: MR brain/brain stem wo con DATE: 10/30/2024 10:32 INDICATION: Suspected ischemic stroke TECHNIQUE: Magnetic resonance imaging (MRI) of the brain and brainstem was performed without intraven ous contrast. Sequences included sagittal and axial T1-weighted SE, axial diffusion-weighted FS SE, a xial 3D SWAN, axial T2-weighted FLAIR, and axial T2-weighted FSE. Apparent diffusion coefficient (ADC ) maps were created. COMPARISON: Head CT dated 10/23/24 FINDINGS: There are no areas of restricted diffusion to suggest acute infarction. Small focus of encephalomalac ia consistent with chronic infarct in the left parietal lobe. Small old lacunar infarct at the right basal ganglia. No intracranial hemorrhage or abnormal intracranial mass lesion. There are scattered a reas of nonspecific increased T2-weighted signal intensity in the cerebral white matter, predominantl y involving the deep and periventricular white matter. There are no intraparenchymal signal abnormali ties seen on the other pulse sequences. The ventricles are symmetric and normal in size. There are no abnormal extra-axial fluid collections. Flow voids are seen in the cerebral arteries on the T2-weigh robert sequences consistent with their expected patency. Mild mucosal thickening the bilateral ethmoid a nd sphenoid sinus with small amount of dependently layering fluid in the left sphenoid sinus. Changes of bilateral intraocular lens replacement. Visualized orbits and soft tissues are unremarkable. IMPRESSION: 1. 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 No acute intracranial proces s. 2. Moderate scattered periventricular predominant scattered white matter T2 hyperintensity consistent with chronic small vessel ischemic disease. Reviewed, dictated and finalized at location A. KE PROGRAM COORDINATOR IMPRESSION: 1. 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 No acu te intracranial process. 2. Moderate scattered periventricular predominant scattered white matter T2 hyp erintensity consistent with chronic small vessel ischemic disease.
--- NOTE | ~2024-10-23 | XR_ITS ---
Exam: Abdomen 1V HISTORY: pulled back tube COMPARISON: 10/23/2024 at 7:00 PM TECHNIQUE: Supine images of the lower chest and upper abdomen FINDINGS: Tip of the orogastric tube remains projecting to the right of midline, with a considerable amount bel ow the diaphragm. Withdrawal of an additional 7 cm is suggested for optimal radiographic placement. IMPRESSION: Withdrawal of the orogastric tube and additional 7 cm is suggested for optimal radiographic placement Reviewed, dictated and finalized at location A. E TROOPER
--- NOTE | ~2024-10-23 | US_ITS ---
EXAMINATION: US renal BI DATE: 10/25/2024 11:16 INDICATION: Acute renal insufficiency. TECHNIQUE: Multiple ultrasound grayscale images of the kidneys were obtained. COMPARISON: CT dated 10/13/2024 and ultrasound dated 10/24/2022 FINDINGS: The right kidney measures 10.4 x 5.3 x 6.7 cm. The left kidney measures 9.6 x 5.7 x 5.8 cm. Mild bila teral renal cortical thinning with increased echogenicity consistent with medical renal disease. Ther e are bilateral anechoic renal cysts the largest on the left measuring up to 6.4 cm maximal diameter and the largest on the right measuring up to 3.6 cm. There is also a 6.0 cm likely benign Bosniak 2 m inimally complex cystic lesion in the left kidney with a few incompletely visualized thin linear inte rnal septations but without a discrete solid nodular soft tissue component. There is no hydronephrosi s in either kidney. No stones identified. The bladder is normal. IMPRESSION: 1. Bilateral medical renal disease with increased cortical echogenicity and mild cortical thinning a t both kidneys. No hydronephrosis. 2. Bilateral renal cysts simple renal cysts as well as a likely benign minimally complex Bosniak 2 co mplex cystic lesion with a few very thin internal septations in the left kidney. Reviewed, dictated and finalized at location A. SURGICAL IMPRESSION: 1. Bilateral medical renal disease with increased cortical echogenicity and mi ld cortical thinning at both kidneys. No hydronephrosis. 2. Bilateral renal cysts simple renal cysts as well as a likely benign minimall y complex Bosniak 2 complex cystic lesion with a few very thin internal septati ons in the left kidney.
--- NOTE | ~2024-10-23 | CT_ITS ---
History: Unresponsive. GCS of 3 PROCEDURE: CT head without contrast. COMPARISON: 04/20/2024 TECHNIQUE: Axial imaging of the head performed from the skull base to the vertex without IV contrast. Sagittal a nd coronal reformations obtained. DLP: 681 mGy-cm FINDINGS: The ventricles are age-appropriate in size, shape and position. There is no mass, mass effect or midline shift. There is no abnormal extra-axial fluid collection or intracranial hemorrhage. Near-complete opacification of the bilateral ethmoid and benign sinuses. Bilateral maxillary and frontal sinuses are unremarkable The mastoid air cells are well aerated. No acute displaced fractures within the overlying cranium. Impression: No acute intracranial hemorrhage or suspicious mass effect. Reviewed, dictated and finalized at location A. ORK SUPPORT TECHNICIAN Impression: No acute intracranial hemorrhage or suspicious mass effect.
--- NOTE | ~2024-10-23 | XR_ITS ---
EXAMINATION: XR chest 1V portable DATE: 10/26/2024 06:16 INDICATION: Respiratory failure. TECHNIQUE: A single frontal view of the chest was obtained. COMPARISON: Chest single view 10/25/2024, chest CT 10/23/2024 FINDINGS: There are scattered patchy airspace opacities in all lung zones bilaterally. Nithya B-lines are noted. No pleural effusion or pneumothorax. Cardiomegaly is noted. The endotracheal tube tip is 3.3 cm above the chikis. The nasogastric tube tip is in the stomach. A right upper extremity peripher ally inserted central venous catheter (PICC) is seen with tip in the superior vena cava. IMPRESSION: 1. Stable diffuse lung disease, likely a combination of mild pulmonary edema and atelectasis versus p neumonia. 2. Cardiomegaly. Reviewed, dictated and finalized at location A. NCIAL MARKET DEALER IMPRESSION: 1. Stable diffuse lung disease, likely a combination of mild pulmonary edema an d atelectasis versus pneumonia. 2. Cardiomegaly.
--- NOTE | ~2024-10-23 | XR_ITS ---
Portable chest x-ray Comparison: 10/24/2024 Clinical History: Respiratory failure Findings: Endotracheal tube, NG tube, and right-sided PICC line in place. There is worsening central congestive change and patchy bilateral airspace disease. Possible minimal left pleural effusion. Ca rdiomediastinal silhouette is stable. Bones and soft tissues are unremarkable. Impression: Worsening central congestive change and patchy bilateral airspace disease. Correlate for worsening pu lmonary edema versus pneumonia. Minimal left pleural effusion. Support tubes, as above. Reviewed, dictated and finalized at location M. PUTTER AWAY Impression: Worsening central congestive change and patchy bilateral airspace disease. Tae elate for worsening pulmonary edema versus pneumonia. Minimal left pleural effusion. Support tubes, as above.
--- NOTE | ~2024-10-23 | XR_ITS ---
EXAMINATION: XR chest 1V portable DATE: 10/27/2024 05:51 INDICATION: Respiratory failure on mechanical ventilation TECHNIQUE: frontal view of the chest was obtained. COMPARISON: Chest radiograph dated 10/26/2024 FINDINGS: Endotracheal tube tip 4.3 cm above the chikis. Right upper extremity peripherally inserted central ve nous catheter (PICC) tip at the mid superior vena cava. Nasogastric tube tip and proximal side port in the body the stomach. Again seen are diffuse bilateral hazy airspace opacity and indistinct interstitial pattern with mild scattered multifocal consolidation. No pleural effusion or pneumothorax. Cardiomegaly. IMPRESSION: 1. Stable diffuse bilateral lung disease which could represent mild pulmonary edema, atelectasis, pne umonia or most likely some combination thereof. 2. Cardiomegaly. Reviewed, dictated and finalized at location A. OWING MANAGER IMPRESSION: 1. Stable diffuse bilateral lung disease which could represent mild pulmonary e david, atelectasis, pneumonia or most likely some combination thereof. 2. Cardiomegaly.
--- NOTE | ~2024-10-23 | XR_ITS ---
Exam: Abdomen 1V HISTORY: og pulled 7cm per vikash alfredo COMPARISON: 10/23/2024 TECHNIQUE: Supine images of the lower chest and upper abdomen FINDINGS: Orogastric tube projects over the the stomach. IMPRESSION: Orogastric tube in good position and ready for immediate use. Reviewed, dictated and finalized at location A. N RESOURCE CONSULTANT
--- NOTE | ~2024-10-23 | XR_ITS ---
CHEST RADIOGRAPH CLINICAL HISTORY: ET PLACEMENT . OG tube placement COMPARISON: 04/20/2024 TECHNIQUE: Single portable view of the chest. FINDINGS Endotracheal tube is identified with its tip projecting approximately 16 mm above the base of the car sowmya. Kyphosis likely distorts this measurement. Orogastric tube identified with its tip extending below the left hemidiaphragm, projecting over the d istal stomach. Withdrawal of approximately 9 cm suggested for optimal radiographic placement. The remainder of the cardiomediastinal silhouette is otherwise unremarkable. Examination is markedly limited by patient rotation. Increased interstitial markings are identified bilaterally, findings suggesting mild pulmonary vascul ar congestion. The lungs are otherwise clear. IMPRESSION: Mild pulmonary vascular congestion without focal infiltrate. Endotracheal tube positioning on supine radiograph is likely distorted by patient's kyphosis. Withdrawal of approximately 9 cm of the orogastric tube is suggested for optimal radiographic placeme nt. Reviewed, dictated and finalized at location A. STER RECOVERY MANAGER IMPRESSION: Mild pulmonary vascular congestion without focal infiltrate. Endotracheal tube positioning on supine radiograph is likely distorted by patie nt's kyphosis. Withdrawal of approximately 9 cm of the orogastric tube is suggested for optima l radiographic placement.
--- NOTE | ~2024-10-23 | XR_ITS ---
EXAMINATION: XR chest ET placement DATE: 10/24/2024 08:37 INDICATION: Endotracheal tube evaluation TECHNIQUE: frontal view of the chest was obtained. COMPARISON: Chest radiograph and CT dated 10/23/2024 FINDINGS: Endotracheal tube tip 4.1 cm above the chikis. Mild opacities scattered throughout the right lung and in the left lower lung zone. No pleural effusi on or pneumothorax. Cardiomegaly and enlargement central pulmonary arteries consistent with pulmonary arterial hypertension. IMPRESSION: 1. Mild opacities scattered throughout the right lung and in the left lower lung zone with appearance on prior CT favoring atelectasis over pneumonia. 2. Cardiomegaly. Reviewed, dictated and finalized at location A. CHISE SPECIALIST IMPRESSION: 1. Mild opacities scattered throughout the right lung and in the left lower dewey g zone with appearance on prior CT favoring atelectasis over pneumonia. 2. Cardiomegaly.
--- NOTE | ~2024-10-23 | XR_ITS ---
EXAMINATION: XR chest PICC line DATE: 10/24/2024 09:27 INDICATION: Central line placement. TECHNIQUE: A single frontal view of the chest was obtained. COMPARISON: Chest single view 10/24/2024, chest CT 10/23/2024 FINDINGS: There is mild atelectasis in left lower lung zone. No pleural effusion or pneumothorax. Car diomegaly is noted. The endotracheal tube tip is 4.4 cm above the chikis. The nasogastric tube tip is in the stomach. A right upper extremity peripherally inserted central venous catheter (PICC) is seen with tip in the superior vena cava. IMPRESSION: 1. PICC tip in the superior vena cava. 2. Mild atelectasis in left lower lung zone. 3. Cardiomegaly. Reviewed, dictated and finalized at location A. PUMPER
--- NOTE | ~2024-10-23 | CT_ITS ---
EXAMINATION: CTA chest abdomen pelvis DATE: 10/23/2024 21:44 CLINICAL EXERCISE PHYSIOLOGIST INDICATION: Post cardiac arrest with abdominal distention TECHNIQUE: Computed tomographic angiography (CTA) of the chest was performed, along with multiple con tiguous axial images of the abdomen and pelvis with 100 mL Omnipaque-350 intravenous contrast. The do se-length product was 925.17 mGy-cm. Maximum intensity projection 3D-reconstructions of the aorta and other arteries were constructed by the technologist on a separate workstation. COMPARISON: 10/19/2019 FINDINGS/OBSERVATIONS: PULMONARY ARTERIES: No filling defect is identified within the main or proximal pulmonary artery. The main pulmonary artery is not enlarged. Heterogeneity is identified within the enlarged thyroid gland, a nonspecific finding. THORACIC AORTA: No aneurysmal dilatation or dissection is present. The great vessels are intact LUNGS: Endotracheal tube is located just at the level of the chikis for which withdrawal of approxima tely 2 cm is recommended for optimal radiographic placement. Right basilar atelectasis. The remainder of the lungs are clear. MEDIASTINUM: No morphologically suspicious or pathologically enlarged lymph nodes are identified with in the mediastinum or bilateral axilla. BONES OF THE CHEST: No acute fracture. No significant degenerative disease. No lytic or blastic lesions. HEART: The heart is enlarged, without pericardial effusion. LIVER: Multiple well-circumscribed foci of fluid attenuation are identified within the liver, most consisten t with simple cysts, and unchanged from 2020. Remainder of the liver is unremarkable, enhancing homogeneously and without enlargement. GALLBLADDER AND BILIARY SYSTEM: The gallbladder is only minimally distended, and otherwise unremarkable. PANCREAS: The pancreas enhances homogeneously. The main pancreatic duct is enlarged measuring 7.5 mm within the head of the pancreas, unchanged from 2020. SPLEEN: The spleen enhances homogeneously and is not enlarged measuring 8 cm in longitudinal dimension. KIDNEYS: Innumerable foci of fluid attenuation are identified within the bilateral kidneys, consistent with si mple cysts, unchanged from 2020. ADRENAL GLANDS: Unremarkable. GASTROINTESTINAL TRACT: Redemonstration of the orogastric tube within the first/second portion of the duodenum (tenting the w all) for which withdrawal of approximately 9 to 10 cm is recommended for optimal placement, and to de crease the risk of perforation. Mural thickening and edema is identified within the cecum. Mural thickening and edema is identified within the gastric cardia. A duodenal diverticulum containing air and fluid is redemonstrated, unchanged from 2020. Colonic diverticulosis is present within the rectosigmoid colon without surrounding inflammation. VASCULATURE: Unremarkable. No aneurysmal dilatation or dissection. LYMPH NODES: No pathologically enlarged or morphologically suspicious lymph nodes within the retroperitoneum or at the root of the mesentery. PELVIC STRUCTURES: The bladder is decompressed with a Leija catheter. The uterus is retroverted and retroflexed. BODY WALL AND MUSCULOSKELETAL: Degenerative disease within the lumbosacral spine with osteophyte formation, disc space narrowing, en dplate changes and vacuum phenomena. IMPRESSION: No acute intra-abdominal findings to explain patient's presentation. Mural thickening and edema within the gastric cardia and cecum. Endotracheal tube tip is at the level of the chikis for which withdrawal of approximately 2 cm is sug gested for optimal placement. Orogastric tube extends to the second portion of the duodenum, and tenting of the wall is demonstrate d. Withdrawal of approximately 9 to 10 cm is recommended for optimal placement and to decrease the ri sk of perforation. Reviewed, dictated and finalized at location A. ICAL EXERCISE PHYSIOLOGIST IMPRESSION: No acute intra-abdominal findings to explain patient's presentation. Mural thickening and edema within the gastric cardia and cecum. Endotracheal tube tip is at the level of the chikis for which withdrawal of mike roximately 2 cm is suggested for optimal placement. Orogastric tube extends to the second portion of the duodenum, and tenting of t he wall is demonstrated. Withdrawal of approximately 9 to 10 cm is recommended for optimal placement and to decrease the risk of perforation.
--- NOTE | ~2024-10-23 | XR_ITS ---
CHEST RADIOGRAPH CLINICAL HISTORY: Respiratory failure . COMPARISON: 10/27/2024 TECHNIQUE: Single portable view of the chest. FINDINGS Left internal jugular central venous catheter tip projecting over the left brachiocephalic vein. Interval extubation. Right upper extremity PICC line projecting over the superior vena cava. Nasogastric tube identified with its tip extending below the left hemidiaphragm, presumably within th e stomach. The remainder of the cardiomediastinal silhouette is enlarged, but otherwise unremarkable. Blunting of the left costophrenic sulcus suggesting a small left-sided pleural effusion. Patchy opacification of the bilateral lung michel, consistent with multifocal pneumonia, unchanged fr om prior. IMPRESSION: Small left-sided pleural effusion with multifocal infiltrates. Supportive lines and tubes in good position. Reviewed, dictated and finalized at location A. MATING MANAGER
[2024-10-23 18:52] VITALS: BP 176/116; PULSE 80; RESP 24; O2SAT 100
[2024-10-23 18:56] VITALS: BP 122/67; PULSE 87; RESP 12; O2SAT 100
--- OUTSIDE RECORDS SUMMARY | 2024-10-23 19:02 | XMS_ITS | Continuity of Care Document ---
Author Organization [facility] Address [address] [place] [address] Dr Jiménez [address] [place] [phone] Phone Care Team Providers Care Nurse Staff Name Role Phone Marimar Bourne Unavailable Unavailable Procedures Procedure Date Office/outpatient Visit, Est Dilated Retinal Exam W Interpretation No Evidence Of Retinopathy In Prior Year TF Polycarb Sphcyl Tyrone To +/-4d .12-2d TF Polycarb Sphcyl [place] To +/-4d .12-2d Progressive Lens, Polycarb Tint [...] Copied on Encounter Office/outpat ient Visit, Est [facility], [address], [place], [place], [id number], [place] tel:[phone] [facility] No Information 0 Tayla Colorado [address] [facility] [address] [facility] , [address], [place], [address], . tel:[phone] [facility], [address], [place], [place], [id number], [place] tel:[phone] [facility] No Information 0 [employer] [facility] . [address] [facility], [address], [place], [place], [address], [place]. tel:[phone] Referring Provider: Marimar Garcia, [address], [place], [address]. tel:[phone] [facility], [address], [place], [place], [address], [place] tel:[phone] [facility] No Information 0 Tayla Colorado [address] , [address], [place], [address], [place]. tel:[phone] [facility], [address], [place], [place], [address], [place] tel:[phone] [facility] No Information 9 Tayla [place] [address] , [address], [place], [place], [facility], [place]. tel:[phone] [facility] [place], [address] [place] [address] [address], [place], [place], [address], [place] tel:[phone] [facility] No Information Dec-1 0-200 9 Oreilly OD Fredy. [address] , [address], [place], [facility], [place]. tel:[phone] [facility] [place], [address] [place] [address] [address], [place], [place], [address], [place] tel:[phone] [facility] No Information Dec-0 9-200 9 Tayla Minaya. [address] , [address], [place], [facility], [place]. tel:[phone] [facility] [place], [address] [place] [address] [address], [place], [place], [address], [place] tel:[phone] [facility] No Information Dec-0 1-200 9 Tayla Minaya. [address] , [address], [place], [facility], [place]. tel:[phone] Referring Provider: Marimar Garcia, [address], [place], [facility]. tel:[phone] [facility] [place], [address] [place] [address] [address], [place], [place], [address], [place] tel:[phone] [facility] No Information Nov-1 0-200 9 Tayla Minaya. [address] , [address], [place], [facility], [place]. tel:[phone] [facility] [place], [address] [place] [address] [address], [place], [place], [address], [place] tel:[phone] [facility] No Information Nov-0 5-200 9 Tayla Colorado [address] , [address], [place], [address], [place]. tel:[phone] [facility] [place], [address], [place], [place], [address], [place] tel:[phone] [facility] No Information Nov-0 4-200 9 Tayla Minaya. [address], [place], [address], [place]. tel:[phone] [facility] [place], [address], [place], [place], [address], [place] tel:[phone] [facility] No Information Oct-2 7-200 9 Tayla Minaya. [address] , [address], [place], [facility], [place]. tel:[phone] Referring Provider: Marimar Garcia, [address], [place], [facility]. tel:[phone] Office/outpat ient Visit, [facility], [address], [place], [place], [address], [place] tel:[phone] [facility] No Information Freddie-0 7-200 9 Tayla Minaya. [address] [facility] [address] , [address], [place], [address], [place]. tel:[phone] Referring Provider: Marimar Garcia, [address], [place], [facility]. tel:[phone] [facility] [place], [address], [place], [place], [address], [place] tel:[phone] [facility] No Information Sep-1 7-200 8 [employer] . [address] [facility], [address], [place], [place], [address], [place]. tel:[phone] Consulting Provider: Chantelle De Souza, [address] [facility], [place], [address]. tel:[phone] [facility] [place], [address], [place], [place], [address], [place] tel:[phone] [facility] No Information 8 Tayla Minaya. [address], [place], [address], [place]. tel:[phone] [facility] [place], [address], [place], [place], [address], [place] tel:[phone] [facility] No Information 200 8 [employer] . [address] [facility], [address], [place], [place], [address], [place]. tel:[phone] Consulting Provider: Angeles Oliveros, [address] [place] [address], [address]. tel:[phone] [facility] [place], [address], [place], [place], [address], [place] tel:[phone] [facility] No Information 9-200 7 [employer] . [address] [facility], [address], [place], [place], [address], [place]. tel:[phone] Consulting Provider: Angeles Oliveros, [address] [place] [address], [address]. tel:[phone] [facility] [place], [address], [place], [place], [address], [place] tel:[phone] [facility] No Information 4-200 7 [employer] . [address] [facility], [address], [place], [address], [place]. tel:[phone] Referring Provider: Marimar Garcia, [address], [place], [address]. tel:[phone] g Provider: Chantelle De Souza, [address] [place], [address]. tel:[phone] [facility] [place], [address], [place], [place], [address], [place] tel:[phone] [facility] No Information 0-200 7 Bourne Marimar. [address] , [address], [place], [address], [place]. tel:[phone] Family History Family Member Type Diagnosis Age At Onset No Information Payers Payer name Insurance type Covered republican ID Authoriza tion(s) [place] [id number] [facility] CI [id number] Social History Type Description Quantity Date Captured [...]
--- OUTSIDE RECORDS SUMMARY | 2024-10-23 19:02 | XMS_ITS | Encounter Summary ---
Author Name Department [facility] ([place]) Organization [facility] ([place]) Address [address] [place] [address] Insurance Providers: All historical and current Section Date Range: From patient's date of to the date document was created. This section includes the names of all active insurance providers for the patient. Insurance Provider Type of Coverage Plan Name Start of Policy Coverage End of Policy Coverage Group Number Member ID Insurance Provider's Telephone Number Policy Dior's Name Patient's Relationship to Policy Dior MEDICARE (WNR) MEDICARE (M) PART A Nov 10, 2004 PART A [id number] BRAULIO GIRALDO PATIENT MEDICARE (WNR) MEDICARE (M) PART B Nov 10, 2004 PART B [id number] BRAULIO GIRALDO PATIENT Selected Encounter This section includes the information on record at NH for the Encounter. Date/Time Encounter Type Encounter Description Reason Provider Source Sep 24, 2024 09:00 AM PROGRAM INTAKE ASSESSMENT HOME TREATMENT SERVICES ICD-10-CM Z74.1 Need for assistance with personal care CHERISE FULLER Encounter Template Text not used by [facility] Assessments - Encounter Diagnoses This section includes the primary and secondary diagnoses documented for the Encounter. Date/Time Primary/Secondary Diagnosis Diagnosis Name Provider Source Sep 24, 2024 03:30 PM PRIMARY Need for assistance with personal care CHERISE FULLER [facility] Encounter Notes: All associated encounter notes This section contains the clinical notes associated to the Encounter. Date/Time Encounter Note(s) Provider Source Sep 24, 2024 02:14 PM CAREGIVER CERTIFIC ATE: LOCAL TITLE: CSP [facility] HOME-CARE ASSESSMENT CAREGIVER CONSULT STANDARD TITLE: CAREGIVER CERTIFICATE DATE OF NOTE: SEP 24, 2024@14:14 ENTRY DATE: SEP 24, 2024@14:14:17 AUTHOR: CHERISE FULLER EXP COSIGNER: URGENCY: STATUS: COMPLETED Program of Comprehensive Assistance for Family Caregivers Home-Care Assessment - Caregiver The Home-Care assessment is a requirement for the Program of Comprehensive Assistance for Family Caregivers. The Home-Care assessment will assess the eligible Hat[place]'s wellbeing and the wellbeing of the caregiver, as well as the caregiver's competence to provide personal care services in the eligible 's home. Date of visit: 09/24/2024 Caregiver identified using full name and date of : Full name: TARAN GIRALDO Date of : Nov Address: [address] [place] [address] [address] [place] [address] The Home-Care assessment is being conducted as part of the: Application Process Caregiver is the: Secondary Family Caregiver/applicant Full name of the receiving personal care services from caregiver: Zoltan Giraldo CAREGIVER COMPETENCY Caregiver demonstrates/verbalizes the ability to provide the following personal care services related to the Hatfield's inability to perform an Activity of Daily Living (ADL): Not applicable Caregiver demonstrates/verbalizes the ability to provide personal care services related to the need for supervision, protection, or instruction (these personal care services are related to supervision, protection, or instruction needs that were identified during the Centralized Eligibility and Appeals Team (CEAT's) initial eligibility review): Yes List of identified personal care service(s) related to supervision, protection, or instruction: Due to impaired memory and low vision, the may require supervision or protection based on symptoms or residuals of neurological or other impairment or injury. Please specify what the PCG is doing in respect to this instead of the spouse and/or HHHA. Due to impaired memory and low vision, the Hatfield may require regular or extensive instruction or supervision without which the ability of the to function in daily life would be seriously impaired. Please specify what the PCG is doing in respect to this instead of the spouse and/or HHHA. Details of how the caregiver demonstrates this ability to help the maintain their personal safety: CG's response, Just kind of watch him and, he don't move alot. When he gets up and move, I'm concerned about what he is doing. CG confirms that for safety, she does monitoring and/or providiing oversight and supervision when PCG, son Janelle, or [employer]'s are not present. CG reports getting food and drinks, reports that she warms food in the microwave for . CG reports that if it is something that she is not able to do she will call one of her sons. PCG reports that SCG gets veterans clean clothes ready. PCG showed this conventional underwriter that a list of phone numbers and names that he made for . CG and PCG confirms that CG is able to operate phone independently to diall 911 for emergency or contact them for help. CG reports that he ensures that home is locked up at night. Caregiver is capable of providing behavioral techniques for redirecting and de-escalating the : Yes Details of how the caregiver demonstrates this ability: CG's response, He goes upstairs of get in recliner. Per PCG, SCG will speak to in calming voice and provide calming touch to redirect and de-escalate . PCG reports that getting to get into shower is a struggle and veterans acts out when its time to get in shower, PCG gave example that when its timr for showers, SCG is usually the person to de-escalate and calm down for showers. Caregiver is capable of providing adequate structure for daily activities: Not applicable Caregiver is capable of using behavior management and verbal interventions to redirect, calm, or keep the from becoming increasingly agitated when their behavior is escalating or when they become suddenly agitated: Yes Details of how the caregiver demonstrates this ability: CG's response, He goes upstairs of get in recliner. Per PCG, SCG will speak to in calming voice and provide calming touch to redirect and de-escalate . PCG reports that getting to get into shower is a struggle and veterans acts out when its time to get in shower, PCG gave example that when its time for showers, SCG is usually the person to de-escalate and calm down for showers. Caregiver is capable of recognizing when the [place] requires clinical intervention (hospitalization, outpatient care, or other interventions and follow up): Yes Details of how the caregiver demonstrates this ability: CG expressed that yes she is capable of recognizing when requires clinical intervention. PCG reported that about 3 weeks ago SCG noticed that veterans right eye was red when he came downstairs for breakfast and SGG then asked PCG to take a look at it. PCG reports that veterans eyes was red and he contacted provider to schedule tawny appt for evaluation and was prescribed an eye ointment. Caregiver is capable of recognizing when the Hatfield or others may be at risk and take actions to promote safety for all concerned: Yes Details of how the caregiver demonstrates this ability: Cg confirms ability to recognize risks and promote safety. What support system does the caregiver have in place/utilize? CG's response, Nobody but the kids, I just call one of them. PCG adds that SCG has a bible study group that she can call on and also two friends Natanael and Lexi The caregiver has a plan for another individual or individuals to assist: Yes Details: Per PCG veterans receives 4hrs [employer] services, 4 days a week.CG also reports that PCG/Camacho is at the home checking on them daily. PCG Camacho reports that he visits veterans home 7 days a week to ensure they are safe and to provide oversight and supervision. The caregiver is aware of available resources for respite: Yes The caregiver is aware of educational and support services available to caregivers: Yes The caregiver knows how to contact the Hatfield's Primary Care Team: Yes The caregiver understands how to manage and order medication and/or needed supplies: Yes The caregiver understands how to maintain a safe home environment: Yes The caregiver has ready access to the 's Crisis Line (Dial 988 then Press 1) and other VA or community based services: No Information provided: Crisis line inormation provided DETERMINATION OF UNMET NEEDS No unmet needs identified Summary of Visit: CG actively participated in HCA while sitting at dining room table. CG alert and oriented to person and place. CG looked to digital clock/calendar on wall to recall time. CG has diagnosis of alzheimers disease. CG appeared clean and well kept with short hair combed, eye glasses in place and wearing a mint top with dark colored pants. CG appeared somewhat knowledgable of some of veterans medical conditions. PCG reports and SCG expresses that SCG is able to recognize an emergency and seek help by calling 911 and/or any one of her children. PCG has concerns that also d/t alzheimers SCG may not be consistent with ability to recognize these things and intervene. During HCA, When asked if there was a fire or tornado warning both and SCG responded appropriately. SCG provided minmal input during HCA except when CG assessment was completed. This conventional underwriter observed several times, SCG struggling to respond correctly and appropriately to some questions. When SCG was questioned about [employer], SCG reported that direct care specialist comes in 1 day a week when PCG confirmed and clarified that [employer] is present 4 days a week. SCG did not remember more than one day. Per PCG, he, his brother and [employer]INGLE's provide supervision and oversight for both veterab and SCG. PCG reports that aside from what NH covers for C[employer] services for , they pay out of pocket for [employer] services for SCG.No further concerns or issues at this time. CG confirms that for safety, she does monitoring and/or providing oversight and supervision when PCG, son Janelle, or C[employer]INGLE's are not present. JADEG lives in h[place] with . RECOMMENDED FOLLOW-UP FOR CAREGIVER No follow-up needed /mingo/ CHERISE FULLER RN BSN REGISTERED NURSE Signed: 09/24/2024 15:30 CHERISE FULLER [facility]
--- OUTSIDE RECORDS SUMMARY | 2024-10-23 19:02 | XMS_ITS | Encounter Summary ---
Author Organization [facility] Address [address] [place] [address] Phone Care Team Providers Care Hat Liner Name Role Phone Clayton Angulo MD Primary Care Provider Reason for Visit * Reason Comments Med Refill Encounter Details Date Type Department Care Team (Late st Contact Info) Description 04/24/2019 Refill [facility] Nephrology and Hypertension [address] [facility], [address] [facility] [place] [address] Young Juarez MD [address] [facility], [address] [place] [address] Social History Tobacco Use Types Packs/Day Years Used Date Smoking Tobacco: Never Smokeless Tobacco: Never Alcohol Use Standard Drinks/Week Comments No 0 (1 standard drink = 0.6 oz pur e alcohol) AUDIT-C Answer Date Recorded Frequency of Alcohol Consumption Never 02/26/2019 Average Number of Drinks Not on file 019 Frequency of Binge Drinking Not on file 02/10 Sex and Gender Information Value Date Recorded Sex Assigned at Not on file Gender Identity Not on file Sexual Orientation Not on file documented as of this encounter Plan of Treatment Not on file documented as of this encounter Visit Diagnoses Not on filedocumented in this encounter Care Teams Hat Liner Relationship Specialty Start Date End Date Clayton Angulo MD [address] [id number] PCP - General Internal Medicine 02/26/19 documented as of this encounter
--- OUTSIDE RECORDS SUMMARY | 2024-10-23 19:02 | XMS_ITS | Encounter Summary ---
Author Organization [facility] Address [address] [place] [address] Phone Care Team Providers Care Manager Shift Name Role Phone Clayton Angulo MD Primary Care Provider [phone] Reason for Visit * Reason Comments Med Refill Encounter Details Date Type Department Care Team (Late st Contact Info) Description 07/25/2019 Refill [facility] Nephrology and Hypertension [facility], [address] [address] Aissatou Wiseman MD [address] [facility], [address] [place] [address] Social History Tobacco Use Types Packs/Day Years [...] on filedocumented in this encounter Care Teams Manager Shift Relationship Specialty Start Date End Date Clayton Angulo MD [address] [facility] [address] PCP - General Internal Medicine 02/26/19 documented as of this encounter
--- OUTSIDE RECORDS SUMMARY | 2024-10-23 19:02 | XMS_ITS | Referral Summary ---
Author Organization [facility] [place] [address] [facility] [address] Address [address] [place] [address] Care Team Providers Care Newscast Producer Name Role Phone Clayton Angulo MD Primary Care Provider Ac Butler MD Unavailable [phone] Young Juarez MD Unavailable [phone] Mahin Morataya MD Unavailable Allergies Active Allergy Reactions Criticality Noted Date Comments Aden Inhibitors Cough Medium 03/22/2019 Atorvastatin Muscle pain Medium 03/22/2019 Fluvastatin Muscle pain Medium 03/22/2019 Penicillins Itching,Rash Medium 05/20/2016 Pravastatin Muscle pain Medium 03/22/2019 Rosuvastatin Muscle pain Medium 03/22/2019 Medications furosemide (LASIX) 40 mg tablet take 1 tablet (40MG) by oral route 2 times every day 0 2 Active Additional Information Patient taking differently:40 mg2 times daily, Informant: Self, Reported on 09/29/2023 atorvastatin (LIPITOR) 40 mg tablet Take 1 tablet (40 mg total) by mouth daily 8 Active escitalopram (LEXAPRO) 10 mg tablet Take 1.5 tablets (15 mg total) by mouth daily 8 Active metoprolol (LOPRESSOR) 100 mg tablet Take 1 tablet (100 mg total) by mouth 2 (two) times a day 8 Active NIFEDIPINE XL 60 mg 24 hr tablet Take 1 tablet (60 mg total) by mouth 2 (two) times a day 8 Active hydroCHLOROthia zide (HYDRODIURIL) 25 mg tablet Take 1 tablet (25 mg total) by mouth daily Active irbesartan (AVAPRO) 300 mg tablet Take 1 tablet (300 mg total) by mouth nightly Active allopurinol (ZYLOPRIM) 100 mg tablet Take 1 tablet (100 mg total) by mouth daily Active beclomethasone (QVAR) 40 mcg/actuation inhaler Inhale 2 puffs 2 (two) times a day Rinse mouth with water after use to reduce aftertaste and incidence of candidiasis. Do not swallow. Active montelukast (SINGULAIR) 10 mg tablet Take 1 tablet (10 mg total) by mouth nightly Active POTASSIUM CHLORIDE ER 20 mEq CR tablet Take 1 tablet (20 mEq total) by mouth daily 8 Active ferrous sulfate 325 mg (65 mg of elemental iron) tabletIndicatio ns:Iron Deficiency Anemia Take 1 tablet (65 mg of elemental iron total) by mouth daily with breakfast Active cholecalciferol (VITAMIN D3) 1,000 unit capsule Take 1 capsule (1,000 Units total) by mouth daily Active blood-glucose meter ([employer] AUTOCODE METER) kit Use daily to check blood sugar 1 each 1 8 Active omeprazole (PriLOSEC) 40 mg capsule Take 1 capsule (40 mg total) by mouth 2 (two) times a day Active fluticasone-ty anterol (BREO ELLIPTA) 100-25 mcg/dose diskus inhaler Inhale 1 puff daily Rinse mouth with water after use. Do not swallow. Active blood glucose diagnostic stripIndication s:Type 2 diabetes mellitus with hyperglycemia, without long-term current use of insulin ([facility]) Check blood sugars once daily ac 90 each 3 9 Active lancets miscIndications :Type 2 diabetes mellitus with hyperglycemia, without long-term current use of insulin ([facility]) Check BG once daily rotating times ac 90 each 3 9 Active albuterol HFA (PROVENTIL HFA,VENTOLIN HFA,PROAIR HFA) 90 mcg/actuation inhaler 1 Active ciprofloxacin-d exAMETHasone (CIPRODEX) otic suspension INSTILL 4 TO 5 DROPS IN RIGHT EAR TWICE DAILY FOR 10 DAYS 3 Active hydrALAZINE (APRESOLINE) 50 mg tablet 3 Active ipratropium (ATROVENT) 21 mcg (0.03 %) nasal spray 2 Active LORazepam (ATIVAN) 0.5 mg tablet Take 1 tablet (0.5 mg total) by mouth 3 (three) times a day 4 Active empagliflozin (JARDIANCE) 10 mg tablet Take 1 tablet (10 mg total) by mouth 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 Active metFORMIN XR (GLUCOPHAGE XR) 500 mg 24 hr tabletIndicatio ns:Type 2 diabetes mellitus with hyperglycemia, without long-term current use of insulin (HCC) TAKE 2 TABLETS BY MOUTH DAILY WITH BREAKFAST 180 tablet 3 4 Active Active Problems Problem Noted Date Diagnosed Date Hyperlipidemia associated with type 2 diabetes tasha marino 05/30/2023 Assessment & Plan (09/29/2023 3:55 PM GEOCHEMISTRY TEACHER): Chronic, well-controlled Continue atorvastatin Update lipid profile Dyspnea 02/24/2021 Assessment & Plan (02/24/2021 1:44 PM CDT): Pt with hx of COPD and CHF Advised to follow up with PCP Microalbuminuria 10/25/2019 Assessment & Plan (10/25/2019 4:32 PM GEOCHEMISTRY TEACHER): Consider starting Invokana Hypertension associated with diabetes 07/31/2013 Overview (12/16/2016): HYPERTENSION NOS Assessment & Plan (09/29/2023 3:55 PM GEOCHEMISTRY TEACHER): Chronic, well-controlled CKD, following with renal Update GFR Assessment & Plan (02/24/2021 1:46 PM CDT): High systolic Low salt diet discussed Pt on 2 diuretics , Metoprolol and Avapro Assessment & Plan (04/16/2019 5:05 PM CDT): Controlled on current medications. Assessment & Plan (07/13/2018 1:12 PM CDT): Continue follow up with cardiology Assessment & Plan (12/07/2017 11:34 AM CDT): Per cardiology and renal. Continue follow up. Assessment & Plan (05/05/2017 12:08 PM CDT): Goal blood pressure is less than 140/85 Low salt diet recommended Daily aerobic exercise Continue current meds, including ADEN-I or ARB Type 2 diabetes mellitus 11/16/2011 Overview (12/16/2016): DMII WO CMP UNCNTRLD Assessment & Plan (09/29/2023 3:55 PM GEOCHEMISTRY TEACHER): Chronic, well-controlled Continue Jardiance Assessment & Plan (03/16/2022 10:40 AM CDT): Hba1c was Lab Results Component Value Date HGBA1C 5.8 03/16/2022 today, indicating adequate DM control Goal Hba1c and blood glucose explained Diet and exercise were advised Prevention and treatment of hyypoglcyemia were discussed with the patient Blood glucose monitoring : no neccessary Adjustment to medications: Continue Metformin , Will get report of labs done recently Assessment & Plan (02/24/2021 1:47 PM CDT): Hba1c was Lab Results Component Value Date HGBA1C 5.7 02/24/2021 today, indicating Adequate DM control Goals blood sugars of 120-160 and Hba1c under 7-8 % was explained. 1800 calorie, consistent carb diet recommended, no more than 3-45 grams of carbs per meal, avoiding concentrated sweet drinks and rapid absorption carbs. 25-45 min daily aerobic and resistance exercise recommended Continue Metformin Assessment & Plan (10/25/2019 4:32 PM GEOCHEMISTRY TEACHER): Hba1c was Lab Results Component Value Date HGBA1C 6.4 10/25/2019 today, indicating adequate DM control 1800 calorie, consistent carb diet recommended, no more than 3-45 grams of carbs per meal, avoiding concentrated sweet drinks and rapid absorption carbs. 25-45 min daily aerobic and resistance exercise recommended Medications: Continue current Assessment & Plan (04/16/2019 5:06 PM CDT): A1c 5.9. Continue metformin. Labs order and advised to have done within next 10 days. Will adjust medication as indicated based on results. Assessment & Plan (07/13/2018 1:17 PM CDT): A1c 6.4. Continue same diabetes medication. Moderate daily exercise as tolerated recommended, using guidelines from cardiology and PT. Recommend Calorie Nolan to track calories. She will forward results of thyroid bx and TFT's Assessment & Plan (12/07/2017 11:35 AM CDT): A1c 6.8. Continue metformin. Focus on diet and exercise as tolerated. Abnormal mammogram 06/30/2010 Resolved Problems Problem Noted Date Diagnosed Date Resolved Date Hyperlipidemia 07/11/2012 05/30/2023 Overview (12/16/2016): HYPERLIPIDEMIA NEC/NOS Assessment & Plan (04/16/2019 5:05 PM CDT): Check lipid panal Assessment & Plan (07/13/2018 1:12 PM CDT): Will obtain labs from PCP and cardiology Assessment & Plan (12/07/2017 11:34 AM CDT): Continue atorvastatin Assessment & Plan (05/05/2017 12:08 PM CDT): Goal of treatment , LDL cholesterol less than 100 ( less than 70 in patients with history of heart attacks and / or strokes ) NonHDL cholesterol goal less than 130 ( less than 100 in patients with history of heart attacks and / or strokes ) Check lipid profile today Continue statin therapy Social History Tobacco Use Types Packs/Day Years Used Date Smoking Tobacco: Never Smokeless Tobacco: Never Tobacco Cessation:Counseling Given: Yes Alcohol Use Standard Drinks/Week Comments No 0 (1 standard drink = 0.6 oz pur e alcohol) PHQ-2 Answer Date Recorded PHQ-2 Total Score (If total score is 3 or more points, staff should administer the PHQ-9) 2 02/24/2021 Comments Unknown Sex and Gender Information Value Date Recorded Sex Assigned at Not on file Legal Sex Female 7:54 AM GEOCHEMISTRY TEACHER Gender Identity Not on file Sexual Orientation Not on file Last Filed Vital Signs Vital Sign Reading Time Taken Comments Blood Pressure 120/70 09/29/2023 3:12 PM GEOCHEMISTRY TEACHER Pulse 64 09/29/2023 3:12 PM GEOCHEMISTRY TEACHER Temperature - - Respiratory Rate 16 03/16/2022 10:05 AM CDT Oxygen Saturation 96% 11/23/2018 10:13 AM CDT Inhaled Oxygen Concentration - - Weight 73.5 kg (162 lb 1.6 oz) 09/29/2023 3:12 P M GEOCHEMISTRY TEACHER Height 154.9 cm (5' 1 ) 09/29/2023 3:12 PM GEOCHEMISTRY TEACHER Body Mass Index 30.63 09/29/2023 3:12 PM GEOCHEMISTRY TEACHER Plan of Treatment Not on file Procedures Procedure Name Priority Date/Time Associated Diagnosis Comments POCT HEMOGLOBIN A1C Routine 09/29/2023 3 :12 PM GEOCHEMISTRY TEACHER Type 2 diabetes mellitus with hyperglycemia, without long-term current use of insulin (CMS/[facility]) (HCC) POCT LIPID PANEL Routine 10/25/2019 2:10 PM GEOCHEMISTRY TEACHER Type 2 diabetes mellitus with hyperglycemia, without long-term current use of insulin (CMS/[facility]) ALBUMIN CREATININE RATIO, URINE Routine 03/07/2018 DIABETIC EYE EXAM Routine 01/25/2017 from Last 3 Months or Most Recently Relevant to Health Maintenance Results * (ABNORMAL) POCT hemoglobin A1c (09/29/2023 3:12 PM GEOCHEMISTRY TEACHER) Hemoglobin A1C, POC 5.6 % Blood spot 09/29/2023 3:12 PM GEOCHEMISTRY TEACHER us Mahin Morataya MD POINT OF CARE TEST ORDERABLES Fi nal Result * POCT lipid panel (10/25/2019 2:10 PM GEOCHEMISTRY TEACHER) Cholesterol, POC 186 mg/dL HDL, POC 56 mg/dL Triglycerides, POC 227 mg/dL LDL Cholesterol POC 85 mg/dL Chol/HDL Ratio, POC 3.3 Non-HDL Cholesterol, POC 130 mg/dL Cholesterol Total, POC 186 mg/dL Blood specimen (specimen) 10/25/2019 2:10 PM GEOCHEMISTRY TEACHER Mahin Morataya MD POINT OF CARE TEST ORDERABLES Fi nal Result * (ABNORMAL) Microalbumin / creatinine ratio, urine, random (03/07/2018) SCRIBED Microalbumin 272.8(A) 0.0 - 16.6 EXTERNAL LAB Urine Historical Provider LAB URINE ORDERABLES Edit ed Result - Final EXTERNAL LAB * Diabetic Eye Exam (01/25/2017) Historical [facility] Edited Result - Final from Last 3 Months or Most Recently Relevant to Health Maintenance Insurance MEDICARE COMMERCIAL GENERIC MEDICARE COMMERCIAL GENERIC MEDICARE COMMERCIAL GENERIC COMMERCIAL GENERIC MEDICARE Care Teams Newscast Producer Relationship Specialty Start Date End Date Clayton Angulo MD PCP - General 12/10/16 Ac Butler MD [address] [address] Consulting Physician Cardiology 07/13/18 Young Juarez MD [address] [address] Referring Physician Nephrology 03/08/23 [place] [address] [facility] [address], [place] [address] Consulting Physician Endocrinology Diabetes & Metabolism 03/08/23
--- OUTSIDE RECORDS SUMMARY | 2024-10-23 19:02 | XMS_ITS | Encounter Summary ---
Author Organization [facility] Address [address] [place] [id number] Phone Care Team Providers Care [employer] Program Director Name Role Phone Clayton Angulo MD Primary Care Provider [phone] Reason for Visit * Reason Comments Med Refill Encounter Details Date Type Department Care Team (Late st Contact Info) Description 10/05/2020 Refill [facility] Nephrology and Hypert[facility], [address] [address] Aissatou Wiseman MD [address] [facility], [address] [address] Social History Tobacco Use Types Packs/Day Years [...] on filedocumented in this encounter Care Teams [employer] Program Director Relationship Specialty Start Date End Date Clayton Angulo MD [address] [facility] [id number] PCP - General Internal Medicine 02/26/19 documented as of this encounter
--- OUTSIDE RECORDS SUMMARY | 2024-10-23 19:02 | XMS_ITS | Data Portability ---
Author Organization [facility], Main Office Address [address] [place] [address] Care Team Providers Care Program Advisor Name Role Phone MARGOTH ANGULO Primary Care Provider MARGOTH ANGULO Referring Provider Assessment Encounter Date Assessment Date Assessment LastModified by Organization Details LastModified Time 01/26/2024 01/26/2024 I have reconciled the patient's medications post their discharge from inpatient facility. [email or web address] Not available 01/26/2024 11:25:14 Plan of Treatment Reminders Order Date Submit Date Provider Last Modified By Organization Details Last Modified Time Details Appointments None recorded. Lab uric acid, serum or plasma 024 [facility], [address] [place], [address], 4 09:22:26 HbA1c (hemoglob in A1c), blood [facility], [address] [place], [address], 4 09:22:32 magnesium , serum or plasma [facility], [address] [place], [address], 4 09:22:25 vitamin B12, serum [facility], [address] [place], [address], 4 09:22:30 CBC w/ auto diff [facility], [address] [place], [address], 4 09:22:28 CMP, serum or plasma [facility], [address] [place] [address], [address], 4 09:22:27 lipid panel, serum [facility], [address] [place] [address], [address], 4 09:22:23 TSH, serum or plasma [facility], [address] [place] [address], [address], 4 09:22:31 T4, free, serum 024 [facility], [address] [place] [address], [address], 4 09:22:29 vitamin B12, serum [email or web address] [place] [address] Outpatient Lab, [address] [place] [address], [address], 4 16:11:52 cerulopla smin, serum [facility], [address] [place] [address], [address], 4 08:17:41 RPR (rapid plasma reagin), serum 024 [facility], [address] [place] [address], [address], 4 12:52:50 vitamin B12, serum 024 [facility], [address] [place] [address], [address], 20:10:10 Referral None recorded. Procedures None recorded. Surgeries None recorded. Imaging None recorded. Medication Orders Rexulti 0.25 mg tablet [facility] #[id number], [address] [facility], [place], [place], [id number], 12:13:05 Patient TargetsNo targets recorded. Patient Instructions Encounter Date Encounter Id Patient Instructions Last Modified By Organization Details Last Modified Time 11/04/2023 [id number] Ataxia and cervi carmen radiculopathy by history. Follow-up for hypertension-hyperl ipidemia- type 2 diabetes. Was in the emergency room has had a considerable amount of blood work performed. Will set up for an MRI of the cervical spine and brain without contrast to further assess the ataxia. Portions of the record may have been created with voice recognition software. Occasional wrong-word or sqhqo-l-oxjz substitutions may have occurred due to the inherent limitations of voice recognition software. Read the chart carefully and recognize, using context, where substitutions have occurred. MRI of the brain and cervical spine without contrast for progressive ataxia. [email or web address] Not available 11/04/2023 12:07:01 01/12/2024 [id number] Memory impairmen t, CVA, hypertension, hyperlipidemia, type 2 diabetes, gout as well as GERD all clinically stable. Check blood work consisting of CBC, CMP, lipid, thyroid, B12, hemoglobin A1c. Will set up with Neurology for further evaluation not only from the stroke standpoint but also cognitive difficulties. 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 Occasional wrong-word or dcmds-z-[id number] substitutions may have occurred due to the inherent limitations of voice recognition software. Read the chart carefully and recognize, using context, where substitutions have occurred. Not available 01/12/2024 11:23:05 01/26/2024 [id number] Thank you for yo ur visit to our office today. We would like to request that you reach out to your referring or previous provider and request that they send us a Summary of Care in electronic form, so that we may have it on file in your medical record. At your visit, we had the medical records we needed to provide you with the best possible care; however, for insurance purposes, an electronic Summary of Care is beneficial. Thank you for your assistance in obtaining this information and we look forward to providing continued care to you. Please review your medication list from the Summary of Care for this visit. If there are any differences from what you are currently taking at home, please call us to discuss. [email or web address] Not available 01/26/2024 12:07:43 Homebound Status : {{Patient has an inability to leave the home without a taxing effort and assistance from another person Does not meet homebound status*}} Required Home Health Services: {{none* longterm, physical therapy, occupational therapy longterm, physical therapy longterm}} Durable Medical Equipment needed: {{cane walker walke r with seat manual wheelchair bedside commode oxygen}} Transition of care stable. Status post CVA, hypertension, hyperlipidemia as well as type 2 diabetes. Will follow-up in four weeks. Will continue with any physical therapy this time. Will set up with Neurology for further evaluation. May be developing some early cognitive dysfunction. And instructed family to make out her medications to make sure that she has not double dosing which he apparently is done on several occasions. May be having some mild early signs of dementia in the form of Alzheimer's in addition to possible small infarct. Follow-up in four weeks Neurology evaluation for recent history of pontine stroke as well as some declining cognitive functioning. Next Appointment: 4 Weeks Approximate Date: 02/23/2024 Portions of the record may have been created with voice recognition software. Occasional wrong-word or quqep-t-zwhn substitutions may have occurred due to the inherent limitations of voice recognition software. Read the chart carefully and recognize, using context, where substitutions have occurred. Billing Guidelines CPT code 81250- Transitional Care Management services with moderate medical decision complexity (afqe-ob-iavi visit within 14 days of discharge). CPT code 10953- Transitional Care Management services with high medical decision complexity (qkpc-gl-jtso visit within 7 days of discharge). Not available 01/26/2024 12:07:50 05/10/2024 [id number] Follow-up for hypertension, GERD, hyperlipidemia, type 2 diabetes and dementia all clinically stable. Have suggested to the family on see possible guardianship to help assist her in economic as well as medical decisions. Also needs to stop driving. Cognitive function is slowly declining and also reflex time to changing events is not adequate in order to help stop or prevent accidents. No blood is needed at this time. Will follow-up in four months. Have suggested the patient use a walker to help assist in walking since she has is at higher risk of fall. Additional Orders - Directives - Recommendations 1. No driving the car 2. Instructed family consider guardianship for both financial as well as medical affairs. Next Appointment: 4 Months Approximate Date: 09/07/2024 Portions of the record may have been created with voice recognition software. Occasional wrong-word or zfswx-v-qutn substitutions may have occurred due to the inherent limitations of voice recognition software. Read the chart carefully and recognize, using context, where substitutions have occurred. [email or web address] Not available 05/10/2024 11:19:11 08/07/2024 [id number] Follow-up for dementia, essential hypertension hyperlipidemia all clinically stable. Will continue on current Rx will check a CBC, CMP, lipid, thyroid, B12, RPR and ceruloplasmin level. Otherwise is clinically stable. Will give a trial some Rexulti 0.25 mg BID and have family check back in one weeks. Follow-up in four months Follow Up: 6 Weeks Approximate Date: 09/18/2024 Portions of the record may have been created with voice recognition software. Occasional wrong-word or mswlr-a-ppta substitutions may have occurred due to the inherent limitations of voice recognition software. Read the chart carefully and recognize, using context, where substitutions have occurred. Created: Margoth Angulo M.D. 08.07.2024 11:14 AM [email or web address] Not available 08/07/2024 12:14:10 Reason for Referral None Reported. Results Created Date Observation Date Name Description Value Unit Range Abnormal Flag Note LastModifiedBy Organization Detail LastModifiedTime 11/10/19 24 11/10/2023 CREAT INALEXI , I-STA T creatinine 2.5 mg/dL 0.6-1. 3 high Not Available [facility] (Lab) [address] [place], [address], 11/24/2023 18:20:09 01/12/20 24 01/13/2024 LIPID PANEL , STAND RADHA cholesterol, total 149 mg/dL <200 normal Not Available [address], [address], 01/13/2024 09:22:23 01/12/20 24 01/13/2024 LIPID PANEL , STAND RADHA HDL cholesterol 48 mg/dL > or = 50 low Not Available [address], [address], 01/13/2024 09:22:23 01/12/20 24 01/13/2024 LIPID PANEL , STAND RADHA triglyceride s 103 mg/dL <150 normal Not Available [address], [address], 01/13/2024 09:22:23 01/12/20 24 01/13/2024 LIPID PANEL , STAND RADHA LDL-choleste rol 81 mg/dL _(carmen c) normal Refer ence range : <100 Manjula able range <100 mg/dL for prima ry preve ntion ; <70 mg/dL for patie nts with CHD or diabe tic patie nts with > or = 2 CHD risk facto rs. LDL-C is now calcu lated using the Juanis n-Hop [facility] calcu leslie n, which is a valid ated novel metho d marijai pratibha hutchins r accur acy than the Fried jacqueline equat ion in the estim ation of LDL-C . Juanis lopes SS et al. KYLAH. 2013; 310(1 9): 2061- 2068 (http ://ed ucati on.Qu Jaxon Sherpaas. com/f aq/FA Q164) Not Available [address], [address], 01/13/2024 09:22:23 01/12/20 24 01/13/2024 LIPID PANEL , STAND RADHA chol/HDLC ratio 3.1 (calc ) <5.0 normal Not Available [address], [address], 01/13/2024 09:22:23 01/12/20 24 01/13/2024 LIPID PANEL , STAND RADHA non HDL cholesterol 101 mg/dL _(carmen c) <130 normal For patie nts with diabe carli plus 1 major ASCVD risk facto r, treat ing to a non-H DL-C goal of <100 mg/dL (LDL- C of <70 mg/dL ) is consi vanessad a thera peuti c optio n. Not Available [address], [address], 01/13/2024 09:22:23 01/12/20 24 01/13/2024 MAGNE SIUM magnesium 2.6 mg/dL 1.5-2. 5 high Not Available [address], [address], 01/13/2024 09:22:24 01/12/20 24 01/13/2024 URIC ACID uric acid 7.0 mg/dL 2.5-7. 0 normal Thera peuti c targe t for gout patie nts: <6.0 mg/dL Not Available [address], [address], 01/13/2024 09:22:25 01/12/20 24 01/13/2024 COMPR EHENS HARSHIL METAB OLIC PANEL glucose 98 mg/dL 65-99 normal Fasti ng refer ence inter tomeka Not Available [facility] [address] [place], [address], 01/13/2024 09:22:27 01/12/20 24 01/13/2024 COMPR EHENS HARSHIL METAB OLIC PANEL urea nitrogen (BUN) 58 mg/dL 7-25 high Not Available [address], [address], 01/13/2024 09:22:27 01/12/20 24 01/13/2024 COMPR EHENS HARSHIL METAB OLIC PANEL creatinine 2.50 mg/dL 0.60-0 .95 high Not Available [address], [address], 01/13/2024 09:22:27 01/12/20 24 01/13/2024 COMPR EHENS HARSHIL METAB OLIC PANEL eGFR 19 mL/mi n/1.7 3m2 > or = 60 low Not Available [address], [address], 01/13/2024 09:22:27 01/12/20 24 01/13/2024 COMPR EHENS HARSHIL METAB OLIC PANEL BUN/creatini ne ratio 23 (calc ) 6-22 high Not Available [address], [address], 01/13/2024 09:22:27 01/12/20 24 01/13/2024 COMPR EHENS HARSHIL METAB OLIC PANEL sodium 137 mmol/ L 135-14 6 normal Not Available [address], [address], 01/13/2024 09:22:27 01/12/20 24 01/13/2024 COMPR EHENS HARSHIL METAB OLIC PANEL potassium 6.1 mmol/ L 3.5-5. 3 high Not Available [address], [address], 01/13/2024 09:22:27 01/12/20 24 01/13/2024 COMPR EHENS HARSHIL METAB OLIC PANEL chloride 111 mmol/ L 98-110 high Not Available [facility] [address], [address], 01/13/2024 09:22:27 01/12/20 24 01/13/2024 COMPR EHENS HARSHIL METAB OLIC PANEL carbon dioxide 17 mmol/ L 20-32 low Not Available [facility] [address], [address], 01/13/2024 09:22:27 01/12/20 24 01/13/2024 COMPR EHENS HARSHIL METAB OLIC PANEL calcium 9.3 mg/dL 8.6-10 .4 normal Not Available [address], [address], 01/13/2024 09:22:27 01/12/20 24 01/13/2024 COMPR EHENS HARSHIL METAB OLIC PANEL protein, total 7.3 g/dL 6.1-8. 1 normal Not Available [address], [address], 01/13/2024 09:22:27 01/12/20 24 01/13/2024 COMPR EHENS HARSHIL METAB OLIC PANEL albumin 4.3 g/dL 3.6-5. 1 normal Not Available [address], [address], 01/13/2024 09:22:27 01/12/20 24 01/13/2024 COMPR EHENS HARSHIL METAB OLIC PANEL globulin 3.0 g/dL_ (calc ) 1.9-3. 7 normal Not Available [address], [address], 01/13/2024 09:22:27 01/12/20 24 01/13/2024 COMPR EHENS HARSHIL METAB OLIC PANEL albumin/glob ulin ratio 1.4 (calc ) 1.0-2. 5 normal Not Available [address], [address], 01/13/2024 09:22:27 01/12/20 24 01/13/2024 COMPR EHENS HARSHIL METAB OLIC PANEL bilirubin, total 0.4 mg/dL 0.2-1. 2 normal Not Available [address], [address], 01/13/2024 09:22:27 01/12/20 24 01/13/2024 COMPR EHENS HARSHIL METAB OLIC PANEL alkaline phosphatase 98 U/L 37-153 normal Not Available [facility] [address], [address], 01/13/2024 09:22:27 01/12/20 24 01/13/2024 COMPR EHENS HARSHIL METAB OLIC PANEL AST 13 U/L 10-35 normal Not Available [address], [address], 01/13/2024 09:22:27 01/12/20 24 01/13/2024 COMPR EHENS HARSHIL METAB OLIC PANEL ALT 8 U/L 6-29 normal Not Available [address], [address], 01/13/2024 09:22:27 01/12/20 24 01/13/2024 CBC (INCL UDES DIFF/ PLT) white blood cell count 7.5 thous and/u L 3.8-10 .8 normal Not Available [address], [address], 01/13/2024 09:22:28 01/12/20 24 01/13/2024 CBC (INCL UDES DIFF/ PLT) red blood cell count 3.48 tamika on/uL 3.80-5 .10 low Not Available [address], [address], 01/13/2024 09:22:28 01/12/20 24 01/13/2024 CBC (INCL UDES DIFF/ PLT) hemoglobin 10.6 g/dL 11.7-1 5.5 low Not Available [facility] [address], [address], 01/13/2024 09:22:28 01/12/20 24 01/13/2024 CBC (INCL UDES DIFF/ PLT) hematocrit 32.8 % 35.0-4 5.0 low Not Available [address], [address], 01/13/2024 09:22:28 01/12/20 24 01/13/2024 CBC (INCL UDES DIFF/ PLT) MCV 94.3 fL 80.0-1 00.0 normal Not Available [facility] [address], [address], 01/13/2024 09:22:28 01/12/20 24 01/13/2024 CBC (INCL UDES DIFF/ PLT) MCH 30.5 pg 27.0-3 3.0 normal Not Available [facility] [address], [address], 01/13/2024 09:22:28 01/12/20 24 01/13/2024 CBC (INCL UDES DIFF/ PLT) MCHC 32.3 g/dL 32.0-3 6.0 normal Not Available [address], [address], 01/13/2024 09:22:28 01/12/20 24 01/13/2024 CBC (INCL UDES DIFF/ PLT) RDW 12.8 % 11.0-1 5.0 normal Not Available [address], [address], 01/13/2024 09:22:28 01/12/20 24 01/13/2024 CBC (INCL UDES DIFF/ PLT) platelet count 267 thous and/u L 140-40 0 normal Not Available [facility] [address], [address], 01/13/2024 09:22:28 01/12/20 24 01/13/2024 CBC (INCL UDES DIFF/ PLT) MPV 11.3 fL 7.5-12 .5 normal Not Available [facility] [address], [address], 01/13/2024 09:22:28 01/12/20 24 01/13/2024 CBC (INCL UDES DIFF/ PLT) absolute neutrophils 5355 cells /uL 1500-7 800 normal Not Available [address], [address], 01/13/2024 09:22:28 01/12/20 24 01/13/2024 CBC (INCL UDES DIFF/ PLT) absolute lymphocytes 1560 cells /uL 850-39 00 normal Not Available [address], [address], 01/13/2024 09:22:28 01/12/20 24 01/13/2024 CBC (INCL UDES DIFF/ PLT) absolute monocytes 450 cells /uL 200-95 0 normal Not Available [address], [address], 01/13/2024 09:22:28 01/12/20 24 01/13/2024 CBC (INCL UDES DIFF/ PLT) absolute eosinophils 83 cells /uL 15-500 normal Not Available [facility] [address], [address], 01/13/2024 09:22:28 01/12/20 24 01/13/2024 CBC (INCL UDES DIFF/ PLT) absolute basophils 53 cells /uL 0-200 normal Not Available [facility] [address], [address], 01/13/2024 09:22:28 01/12/20 24 01/13/2024 CBC (INCL UDES DIFF/ PLT) neutrophils 71.4 % normal Not Available [facility] [address], [address], 01/13/2024 09:22:28 01/12/20 24 01/13/2024 CBC (INCL UDES DIFF/ PLT) lymphocytes 20.8 % normal Not Available [facility] [address], [address], 01/13/2024 09:22:28 01/12/20 24 01/13/2024 CBC (INCL UDES DIFF/ PLT) monocytes 6.0 % normal Not Available [address], [address], 01/13/2024 09:22:28 01/12/20 24 01/13/2024 CBC (INCL UDES DIFF/ PLT) eosinophils 1.1 % normal Not Available [facility] [address], [address], 01/13/2024 09:22:28 01/12/20 24 01/13/2024 CBC (INCL UDES DIFF/ PLT) basophils 0.7 % normal Not Available [facility] [address], [address], 01/13/2024 09:22:28 01/12/20 24 01/13/2024 T4, FREE T4, free 1.1 NG/dL 0.8-1. 8 normal Not Available [facility] [address], [address], 01/13/2024 09:22:29 01/12/20 24 01/13/2024 VITAM IN B12 vitamin B12 315 pg/mL 200-11 00 normal Pleas e Note: Altho ugh the refer ence range for vitam in B12 is 200-1 100 pg/mL , it has been repor robert that betwe en 5 and 10% of patie nts with value s betwe en 200 and 400 pg/mL may exper ience neuro psych iatri c and hemat ologi c abnor malit ies due to occul t B12 defic iency ; less than 1% of patie nts with value s above 400 pg/mL will have sympt oms. Not Available [facility] [address], [address], 01/13/2024 09:22:30 01/12/20 24 01/13/2024 TSH TSH 0.69 mIU/L 0.40-4 .50 normal Not Available [facility] [address] [address], [place], [address], 01/13/2024 09:22:31 01/12/20 24 01/13/2024 HEMOG LOBIN A1C hemoglobin A1C 5.6 %_of_ total _HGB <5.7 normal For the purpo se of scree penny for the prese nce of diabe carli: <5.7% Consi stent with the absen ce of diabe carli 5.7-6 .4% Consi stent with incre ased risk for diabe carli (pred iabet es) > or =6.5% Consi stent with diabe carli This assay resul t is consi stent with a decre ased risk of diabe carli. Curre ntly, no conse nsus exist s regar pratibha use of hemog lobin A1c for diagn osis of diabe carli in child nag. Accor ding to Ameri can Diabe carli Assoc iatio n (ADA) guide lines , hemog lobin A1c <7.0% repre sents optim al contr ol in non-p regna nt diabe tic patie nts. Diffe rent metri cs may apply to speci fic patie nt popul ation s. Stand ards of Medic al Care in Diabe carli(A DA). This test was perfo rmed on the Varun yeny c503 platf orm. Effec tive , a abi bullock in test platf orms from the [facility]bot t Archi tect to the Varun yeny c503 may have shift ed HbA1c resul ts maria elena red to histo rical resul ts. Based on labor atory valid ation testi ng condu cted at [facility] , the Varun platf orm relat harshil to the [facility]bot t platf orm had an avera ge incre ase in HbA1c value of < or = 0.3%. This diffe rence is withi n accep robert varia bilit y estab lishe d by the Natio nal [employer] hemog lobin Stand ardiz ation Progr am. Note that not all indiv idual s will have had a shift in their resul ts and direc t maria elena rison s betwe en histo rical and curre nt resul ts for testi ng condu cted on diffe rent platf orms is not recom amandeep rodriguez Not Available [address], [address], 01/13/2024 09:22:32 01/19/20 24 01/20/2024 IRON, TIBC AND JAMAL TIN PANEL iron, total 97 mcg/d L 45-160 normal Not Available [address], [address], 01/20/2024 15:00:03 01/19/20 24 01/20/2024 IRON, TIBC AND JAMAL TIN PANEL iron binding capacity 268 mcg/d L_(ca lc) 250-45 0 normal Not Available [address], [address], 01/20/2024 15:00:03 01/19/20 24 01/20/2024 IRON, TIBC AND JAMAL TIN PANEL % saturation 36 %_(ca lc) 16-45 normal Not Available [address], [address], 01/20/2024 15:00:03 01/19/20 24 01/20/2024 IRON, TIBC AND JAMAL TIN PANEL ferritin 49 NG/mL 16-288 normal Not Available [address], [address], 01/20/2024 15:00:03 01/19/20 24 01/20/2024 FOLAT E, SERUM folate, serum 7.1 NG/mL normal Refer ence Range Low: <3.4 Borde rline : 3.4-5 .4 Mary l: >5.4 Not Available [address], [address], 01/20/2024 15:00:04 01/19/20 24 01/20/2024 VITAM IN B12 vitamin B12 301 pg/mL 200-11 00 normal Pleas e Note: Altho ugh the refer ence range for vitam in B12 is 200-1 100 pg/mL , it has been repor robert that betwe en 5 and 10% of patie nts with value s betwe en 200 and 400 pg/mL may exper ience neuro psych iatri c and hemat ologi c abnor malit ies due to occul t B12 defic iency ; less than 1% of patie nts with value s above 400 pg/mL will have sympt oms. Not Available [facility] [address] [place], [address], 01/20/2024 15:00:05 08/07/20 24 08/07/2024 VITAM IN B12 (FRANKLYN DANG ) vb12 285 pg/mL 239-93 1 Not Available [facility] (Lab) [address] [place], [address], 08/07/2024 20:10:10 08/07/20 24 08/09/2024 CERUL OPLAS MIN ceruloplasmi n 28.7 mg/dL 19.0-3 9.0 Perfo rmed at: [facility] [address] [address] Lab Direc tor: Sudhakar guallpa PhD, Phone : [phone] Not Available [facility] (Lab) [address] [place], [address], 08/09/2024 08:17:41 08/07/20 24 08/11/2024 RPR SCREE N RPR NON-RE ACTIVE nonrea ctive Not Available [facility] (Lab) [address] [place], [address], 08/11/2024 12:52:50 11/02/19 24 11/02/2023 CT, brain , w/o contr ast No observ ation record ed. [address], [place], [address], 11/02/2023 13:42:24 11/08/19 24 MRI, brain , w/o contr ast [facility] [address] [facility] [address] [address] [address] Patien t Name: LORENZO BOOTH Judy Access ion #: [id number] Sex: F : 1940 0 Dictat ed By: Drake Ortega ms Attend ing Physic lily: ALEJANDRO ANGULO CE Orderi ng Physic lily: ALEJANDRO ANGULO CE Exam Date: 2023 08:32 AM Exam Name: MRI BRAIN WO Admitt ing Diagno sis(es ): ACCESS ION #: [id number] EXAMIN ATION: MRI BRAIN WO INDICA TION: None COMPAR MARY: None TECHNI QUE: Multip lanar, multis equenc e magnet ic resona nce imagin g of the brain was perfor med withou t the use of intrav enous contra st. FINDIN GS: There is restri cted diffus ion in the left side of the katerin consis tent with acute infarc t. No intrac ranial hemorr raeann. No mass effect . There is perive ntricu lar/de ep white matter T2/FLA IR hyperi ntensi ty is nonspe cific, but most common ly associ ated with chroni c microv ascula r diseas e. The ventri cles and sulci are normal in size for age. Clear basal cister ns. There is modera te cortic al volume loss, approp riate for patien t stated age. Flow voids in the major intrac ranial vessel s are mainta ined. No abnorm ality of the orbits . Parana jackelyn sinuse s and mastoi d air cells are clear. No abnorm ality of the visual ized osseou s struct ures and extrac ranial soft tissue s. IMPRES EVA: Page 1 [facility] [address] [facility] [address], [place] [address] Patien t Name: LORENZO BOOTH Access ion #: [id number] Sex: F : 1940 0 Dictat ed By: Drake Ortega ms Attend ing Physic lily: MOY WILSON Physic lily: ALEJANDRO ANGULO Exam Date: 2023 08:32 AM Exam Name: MRI BRAIN WO Admitt ing Diagno sis(es ): 1. Acute infarc tion in the katerin. 2. Modera te diffus e cortic al volume loss and perive ntricu lar white matter diseas e likely relate d to sequel a of chroni c microv ascula r ischem ic change s. Electr onical ly Signed by: Drake Ortega ms at 2023 10:14: 52 AM Page 2 [email or web address] [facility] (Imaging) [address] [place], [address], 11/08/2023 12:34:09 11/08/19 24 MRI, brain , w/o contr ast [facility] [address] [place] [address] Patien t Name: LORENZO BOOTH Access ion #: [id number] Sex: F : 1940 0 Dictat ed By: Drake Ortega ms Attend ing Physic lily: ALEJANDRO ANGULO Physic lily: ALEJANDRO ANGULO Exam Date: 2023 08:32 AM Exam Name: MRI BRAIN WO Admitt ing Diagno sis(es ): ADDEND UM #1 Critic al result :Acute infarc t Findin gs discus sed with nurse ran danielle on 024 at 10:55 AM , with acknow ledged receip t and unders tandin g of the findin gs. Electr onical ly Signed by: Drake Ortega ms at 2023 10:55: 45 AM ORIGIN AL REPORT ACCESS ION #: [id number] EXAMIN ATION: MRI BRAIN WO INDICA TION: None COMPAR MARY: None TECHNI QUE: Multip lanar, multis equenc e magnet ic resona nce imagin g of the brain was perfor med withou t the use of intrav enous contra st. FINDIN GS: There is restri cted diffus ion in the left side of the katerin consis tent with acute infarc t. No intrac ranial hemorr raeann. No mass effect . There is perive ntricu lar/de ep white matter T2/FLA IR hyperi ntensi ty is nonspe cific, but most common ly associ ated with chroni c microv ascula r diseas e. The ventri cles and sulci are normal in size for age. Clear basal cister ns. There is modera te cortic al volume loss, approp riate for patien t stated age. Flow voids in the major intrac ranial vessel s are mainta ined. Page 1 [facility] [address] [place] [phone] Patien t Name: LORENZO BOOTH Access ion #: [id number] Sex: F : 1940 0 Dictat ed By: Drake Ortega ms Attend ing Physic lily: MOY WILSON Physic lily: ALEJANDRO ANGULO Exam Date: 2023 08:32 AM Exam Name: MRI BRAIN WO Admitt ing Diagno sis(es ): No abnorm ality of the orbits . Parana jackelyn sinuse s and mastoi d air cells are clear. No abnorm ality of the visual ized osseou s struct ures and extrac ranial soft tissue s. IMPRES EVA: 1. Acute infarc tion in the katerin. 2. Modera te diffus e cortic al volume loss and perive ntricu lar white matter diseas e likely relate d to sequel a of chroni c microv ascula r ischem ic change s. Electr onical ly Signed by: Drake Ortega ms at 2023 10:55: 45 AM Page 2 [email or web address] [facility] (Imaging) [address] [place], [address], 11/08/2023 12:34:31 11/08/19 24 MRI, cervi carmen spine , w/o contr ast [facility] [address], [place] [address] Patien t Name: LORENZO BOOTH Access ion #: [id number] Sex: F : 1940 0 Dictat ed By: Drake Ortega ms Attend ing Physic lily: ALEJANDRO ANGULO CE Orderi ng Physic lily: ALEJANDRO ANGULO CE Exam Date: 2023 08:32 AM Exam Name: MRI C SPINE WO Admitt ing Diagno sis(es ): PROCED URE: MRI cervic al spine withou t contra st. INDICA TION: Ataxia . Dizzin ess. COMPAR MARY: None availa ble at time of dictat ion. TECHNI QUE: MRI of the cervic al spine withou t intrav enous contra st utiliz ing multip lanar, multis equenc e techni que. FINDIN GS: The alignm ent of the cervic al spine verteb ral bodies is preser jay. The verteb ral body height s are mainta ined. The interv ertebr al disc spaces are mainta ined in height and signal charac terist ics. The bone marrow signal is homoge nous and unrema rkable . The cervic al spinal cord is normal in signal charac terist ics and calibe r. T2 hyperi ntensi ty noted in the katerin. Please see separa te MRI of the brain report . No cerebe llar tonsil lar hernia tion. Parasp inal muscle s are unrema rkable . At the C2-C3 level, there is no eviden ce of centra l spinal canal or neurof oramin al stenos is. At the C3-C4 level, there is no eviden ce of centra l spinal canal stenos is. There is mild left neural forami nal stenos is. The right neural forame n is patent . At the C4-C5 level, there is round up ring hand ior disc osteop hyte comple x. There is no signif icant canal stenos is. There is modera te bilate ral neural forami nal stenos is second brant to uncove rtebra l joint hypert rophy. At the C5-C6 level, there is a round up ring hand ior centra l disc protru eva. There is no signif icant canal stenos is. There is mild left and no signif icant right Page 1 [facility] [address] [place] [address] Patien t Name: LORENZO BOOTH Access ion #: [id number] Sex: F : 1940 0 Dictat ed By: Drake Ortega ms Attend ing Physic lily: MOY WILSON Physic lily: ALEJANDRO ANGULO Exam Date: 2023 08:32 AM Exam Name: MRI C SPINE WO Admitt ing Diagno sis(es ): neural forami nal stenos is. At the C6-C7 level, there is a broad- based round up ring hand ior disc osteop hyte comple x. There is no signif icant canal stenos is. There is modera te left neural forami nal stenos is. The right neural forame n is patent . At the C7-T1 level, there is no eviden ce of centra l spinal canal or neurof oramin al stenos is. Other: Thyroi d is enlarg ed with hetero geneou s nodule s. IMPRES EVA: 1. Multil evel degene rative change s in the cervic al spine. No signif icant centra l canal stenos is. Multil evel neural forami nal stenos is as descri bed. 2. Enlarg ed thyroi d with multip le hetero geneou s nodule s. Thyroi d ultras ound recomm ended for furthe r evalua tion. 3. T2 hyperi ntensi ty in the katerin. Please see separa te brain MRI perfor med same date. Electr onical ly Signed by: Drake Ortega ms at 2023 11:17: 10 AM Page 2 [facility] (Imaging) [address] [place], [address], 11/08/2023 12:35:35 01/21/20 24 01/21/2024 CT, brain , w/o contr ast No observ ation record ed. [address], [place], [address], 01/22/2024 09:06:00 01/21/20 24 01/21/2024 XR, chest , 2 view No observ ation record ed. [address], [place], [address], 01/22/2024 09:06:28 04/20/20 24 04/20/2024 XR, ribs, bilat eral No observ ation record ed. [address] [facility], [place], [address], 04/20/2024 15:04:17 04/20/20 24 04/20/2024 XR, hip + pelvi s, unila teral No observ ation record ed. [address], [place], [address], 04/20/2024 15:05:57 04/20/20 24 04/20/2024 CT, head + brain , w/o contr ast No observ ation record ed. [address] [address], [place], [address], 04/20/2024 15:06:52 Result Notes None recorded. Problems Name Problem SNOMED Code Status Onset Date Resolution Date Notes Provider Name and Address Organization Details Recorded Time Disorder of shoulder 792891512 Active Not Available [facility] 3 12:49:04 Pain in right sacroiliac joint 5845914318805 9107 Active 2021 Not Available [employer] 3 12:49:05 Bilateral hip joint pain 2675614787678 9100 Active 2021 Not Available [employer] 3 12:49:05 Indigestio n 456590395 Active Not Available [facility] 3 12:49:05 Asthma 926327185 Active Not Available [facility] 3 12:49:05 Full thickness rotator cuff tear 738223417 Active Not Available [facility] 3 12:49:05 Closed fracture proximal humerus, greater tuberosity 330299754 Active Not Available [facility] 3 12:49:05 Allergic rhinitis caused by pollen 57063479 Active Not Available [facility] 3 12:49:05 Closed traumatic dislocatio n of joint of shoulder region 56946510 Active Not Available [facility] 3 12:49:05 Gastroesop hageal reflux disease 447694639 Active Not Available [facility] 3 12:49:05 Edema 394584205 Active Not Available [facility] 3 12:49:06 Pure hyperchole sterolemia 588019235 Active Not Available [facility] 3 12:49:06 Shoulder joint pain 208188183 Active Not Available [facility] 3 12:49:06 Low back pain 059903191 Active 2021 Not Available [facility] 3 12:49:06 Trochanter ic bursitis of right hip 6887437985686 00 Active 2021 Not Available [facility] 3 12:49:06 Vitamin D deficiency 27723522 Active 2021 Not Available [facility] 3 12:49:06 Disorder of vitamin B12 255024424 Active Not Available [facility] 3 12:49:06 Disorder of rotator cuff 459950947 Active Not Available [facility] 3 12:49:06 Ventral incisional hernia 209606303 Active Not Available [facility] 3 12:49:07 Itching of skin 517647657 Active 2021 Not Available [facility] 3 12:49:07 Nausea 174828218 Active 2021 Not Available [facility] 3 12:49:07 Congestive heart failure 20295301 Active Not Available [facility] 3 12:49:07 Type 2 diabetes mellitus 75122397 Active Not Available [facility] 3 12:49:07 Contusion of lower leg 93697609 Active Not Available [facility] 3 12:49:07 Essential hypertensi on 42689693 Active Not Available [facility] 3 12:49:08 Osteoporos is 27560488 Active 2021 Not Available [facility] 3 12:49:08 Fracture of humerus 84400035 Active Not Available [facility] 3 12:49:08 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 Not Available [facility] 3 12:49:08 Sleep apnea 98150387 Active Not Available [facility] 3 12:49:08 Epigastric pain 68892162 Active Not Available [facility] 3 12:49:08 Neck pain 17292371 Active Not Available [facility] 3 12:49:09 Gout 10855473 Active 2016 Not Available [facility] 3 12:49:09 Abdominal pain 59896098 Active 2022 Margoth Angulo MD [address], [place], [address] , [employer] [facility] [employer] [facility] 3 11:49:24 Cervical radiculopa thy 75533753 Active 2022 Margoth Angulo MD [address], [address], [place], [address] , [employer] [facility] [employer] [facility] 3 14:58:47 Bilateral shoulder joint pain 1790261521574 9104 Active 2022 EDITH Gonzales null, [employer] [facility] [employer] [facility] 3 14:10:18 Bilateral shoulder osteoarthr itis 3988927845935 08 Active 2022 Giovani Maher MD [address], [address], [place], [address] , [facility] [employer] [facility] [employer] [facility] 3 14:29:00 Pruritic rash 29134789 Active 2022 Margoth Angluo MD [address], [address], [place], [address] , [place] [facility] [place] [facility] 3 14:20:00 Anxiety 50274307 Active 2023 Margoth Angulo MD [address], [address], [place], [address] , [facility] [place] [facility] 4 13:38:55 Ataxia 90480444 Active 2023 Margoth Angulo MD [address], [address], [place], [address] , [place] [facility] [place] [facility] 4 11:58:30 Cerebrovas cular accident 178525753 Active 2023 Velia Allred null, [place] [facility] 4 16:38:58 Dizziness 225940590 Active 2023 Margoth Angulo MD [address], [address], [place], [address] , [place] [facility] 4 13:56:16 Memory impairment 937477830 Active 2023 Margoth Angulo MD [address], [address], [place], [address] , [facility] 4 11:13:09 Anemia 637019564 Active 2023 Guerda Garces CMA null, [facility] 4 16:25:24 Dementia 89331969 Active 2023 Margoth Angulo MD [address], [address], [place], [address] , [facility] 4 11:12:21 Depressive disorder 89461637 Active 2023 Margoth Angulo MD [address], [address], [place], [address] , [facility] 4 16:15:03 Acute sinusitis 25688765 Active 2023 Mragoth Angulo MD [address], [place], [address] , [facility] 4 16:30:40 Problem Notes None recorded. Procedures Surgical History Date Name Laterality Status Provider Name and Address Organization Details Recorded Time 4 Transitional_C are_Management completed Margoth Angulo MD [address] [facility] [address], [place], [address], [facility] [employer] [facility] 01/26/2024 12:04:22 3 Ortho - Cortisone Injection completed Giovani Maher MD [address] [facility] [address], [place], [address], [facility] [employer] [facility] 05/24/2023 14:27:13 Imaging Results Imaging Date Name Status LastModified by [facility] Details LastModified Time 11/02/2023 CT, brain, w/o contrast completed [address], [address], 11/02/2023 13:42:24 11/08/2023 MRI, brain, w/o contrast completed [address] (Imaging) [address] [place], [address], 11/08/2023 12:34:09 11/08/2023 MRI, brain, w/o contrast completed [address] (Imaging) [address] [place], [address], 11/08/2023 12:34:31 11/08/2023 MRI, cervical spine, w/o contrast completed [address] (Imaging) [address] [place], [address], 11/08/2023 12:35:35 01/21/2024 CT, brain, w/o contrast completed [address], [address], 01/22/2024 09:06:00 01/21/2024 XR, chest, 2 view completed [address], [address], 01/22/2024 09:06:28 04/20/2024 XR, ribs, bilateral completed [address], [place], [address], 04/20/2024 15:04:17 04/20/2024 XR, hip + pelvis, unilateral completed [address], [place], [address], 04/20/2024 15:05:57 04/20/2024 CT, head + brain, w/o contrast completed [address], [place], [address], 04/20/2024 15:06:52 Procedure Notes None recorded. Medical Equipment None Reported. Allergies Allergen ID Allergen Name Allergen Category Reaction Reaction Severity Criticality Documentation Date Start Date Code Code System Note Provider Name and Address Organization Details Recorded Time 62576 Pravachol medicatio n myalgias (muscle pain) Not available Not available 11/10/2022 84104 3 RxNorm Not Available [facility] 3 12:53:47 90479 Lipitor medicatio n myalgias (muscle pain) Not available Not available 11/10/2022 32335 5 RxNorm Not Available [facility] 3 12:53:47 55941 Lescol medicatio n other Not available Not available 11/10/2022 79808 2 RxNorm did not help Not Available [facility] 3 12:53:48 19098 Crestor medicatio n myalgias (muscle pain) Not available Not available 11/10/2022 67816 4 RxNorm Not Available [facility] 3 12:53:48 Medications Name Sig Start Date Stop Date Status Note LastModified by Organization Details LastModified Time amoxicillin 500 mg capsule Take 1 capsule 3 times a day by oral route for 10 days. active Not Available Not Available No t Available furosemide 40 mg tablet TAKE 1 TABLET BY MOUTH TWICE DAILY 08/07 completed Not Available Not Available Not Available metolazone 2.5 mg tablet Take 1 tablet every day by oral route. active Not Available Not Available No t Available atorvastati n 40 mg tablet Take 1 tablet every day by oral route. active Not Available Not Available No t Available metformin 500 mg tablet Take 2 tablets twice a day by oral route. 01/25 completed Not Available Not Available Not Available Tylenol-Cod eine #4 300 mg-60 mg tablet Take 1 tablet every 6 hours by oral route. 12/02 completed Not Available Not Available Not Available neomycin-po lymyxin-hyd rocort 3.5 mg/mL-10,00 0 unit/mL-1 % ear solution INSTILL 4 DROPS IN RIGHT EAR Q 8 H FOR 7 DAYS 05/24 completed Not Available Not Available Not Available doxycycline hyclate 100 mg capsule Take 1 capsule twice a day by oral route. 05/18 completed Not Available Not Available Not Available ketoconazol e 2 % shampoo active Not Available Not Available Not Available sulfasalazi ne 500 mg tablet TK 1 T PO D AFTER MEALS active Not Available Not Available No t Available clindamycin HCl 300 mg capsule TK 1 C PO Q 8 H 05/18 completed Not Available Not Available Not Available triamcinolo ne acetonide 0.5 % topical cream APPLY TOPICALLY TO THE AFFECTED AREA TWICE DAILY NEEDED 01/25 completed Not Available Not Available Not Available metoprolol tartrate 100 mg tablet Take 1 tablet twice a day by oral route. active Not Available Not Available No t Available benzonatate 200 mg capsule Take 1 capsule 3 times a day by oral route. 12/02 completed Not Available Not Available Not Available valacyclovi r 1 gram tablet TK 1 T PO TID active Not Available Not Available No t Available Lotrisone 1 %-0.05 % topical cream Apply by topical route twice daily active Not Available Not Available No t Available Keflex 500 mg capsule Take 1 capsule 4 times a day by oral route. active Not Available Not Available No t Available prochlorper azine maleate 5 mg tablet Take 1 TABLET EVERY 6 HOURS by oral route prn for nausea active Not Available Not Available No t Available sucralfate 1 gram tablet active Not Available Not Available Not Available ondansetron HCl 4 mg tablet Take 1 tablet every 6-8 hours by oral route as needed. 05/10 completed Not Available Not Available Not Available bupivacaine HCl 0.5 % (5 mg/mL) injection solution Take 20 mg by injection route. 01/25 completed Not Available Not Available Not Available alendronate 70 mg tablet Take 1 tablet every week by oral route. active Not Available Not Available No t Available prednisone 5 mg tablet 05/18 completed Not Available Not Available Not Available metolazone 5 mg tablet Take 1 tablet every day by oral route. 01/25 completed Not Available Not Available Not Available Zithromax Z-Jimmy 250 mg tablet Take 2 TABLET EVERY DAY by oral route for 1 day then one daily 12/02 completed Not Available Not Available Not Available Diflucan 150 mg tablet Take 1 tablet every day by oral route. 12/02 completed Not Available Not Available Not Available promethazin e 6.25 mg-codeine 10 mg/5 mL syrup Take 5 ML EVERY 6 HOURS by oral route PRN for cough 12/02 completed Not Available Not Available Not Available hydralazine 25 mg tablet 12/03 completed Not Available Not Available Not Available meclizine 12.5 mg tablet TAKE 1 TABLET BY MOUTH THREE TIMES DAILY 01/25 completed Not Available Not Available Not Available Lanoxin 125 mcg (0.125 mg) tablet Take 1 tablet by mouth once daily 06/20 completed Not Available Not Available Not Available acetaminoph en 300 mg-codeine 30 mg tablet TK 1 T PO Q 6 H PRN 05/18 completed Not Available Not Available Not Available clopidogrel 75 mg tablet take one tablet daily active Not Available Not Available No t Available chlorthalid one 25 mg tablet TAKE 1 TABLET BY MOUTH DAILY active Not Available Not Available No t Available allopurinol 100 mg tablet Take 1 tablet(s) Daily for 7 days then two daily for 7 days and then call for script for 300 mg once daily active Not Available Not Available No t Available omeprazole 40 mg capsule,del ayed release 05/10 completed Not Available Not Available Not Available tramadol 50 mg tablet active Not Available Not Available No t Available triamcinolo ne acetonide 0.1 % topical cream APPLY A THIN LAYER TO THE AFFECTED AREA(S) BY TOPICAL ROUTE 2 TIMES PER DAY 01/25 completed Not Available Not Available Not Available ofloxacin 0.3 % ear drops INSTILL 3 TO 4 DROPS TO AFFECTED EAR TWICE DAILY FOR 10 DAYS 01/25 completed Not Available Not Available Not Available Coreg 25 mg tablet Take 1 tablet twice a day by oral route. active Not Available Not Available No t Available lorazepam 0.5 mg tablet TAKE 1 TABLET BY MOUTH THREE TIMES DAILY 01/25 completed Not Available Not Available Not Available nifedipine ER 60 mg tablet,exte nded release 24 hr TAKE 1 TABLET BY MOUTH TWICE DAILY 08/07 completed Not Available Not Available Not Available Kenalog 10 mg/mL suspension for injection Take 20 mg by injection route. 01/[address] [facility]: [phone] Not Available Not Available Not Available nifedipine ER 90 mg tablet,exte nded release 24 hr active Not Available Not Available Not Available Proctozone- HC 2.5 % topical cream perineal applicator APPLY A THIN LAYER TO THE AFFECTED AREA(S) BY TOPICAL ROUTE 2-4 TIMESDAIL Y active Not Available Not Available No t Available benzonatate 100 mg capsule TK ONE C PO TID active Not Available Not Available No t Available cyanocobala min (vit B-12) 1,000 mcg/mL injection solution . 12/02 completed Not Available Not Available Not Available Advair Diskus 500 mcg-50 mcg/dose powder for inhalation Inhale 1 puff twice a day by inhalatio n route. 2012 active Not Available Not Available Not Avai lable diclofenac sodium 75 mg tablet,librado yed release Take 1 tablet twice a day by oral route. 01/25 completed Not Available Not Available Not Available montelukast 10 mg tablet 12/03 completed Not Available Not Available Not Available codeine 10 mg-guaifene sin 100 mg/5 mL oral liquid TAKE 5 ML BY MOUTH EVERY 6 HOURS NEEDED 05/18 completed Not Available Not Available Not Available allopurinol 300 mg tablet TAKE 1 TABLET BY MOUTH ONCE DAILY 01/25 completed Not Available Not Available Not Available hydralazine 50 mg tablet Take 1 tablet twice a day by oral route. active Not Available Not Available No t Available hydrochloro thiazide 25 mg tablet 12/03 completed Not Available Not Available Not Available gabapentin 100 mg capsule TK 1 C PO TID active Not Available Not Available No t Available irbesartan 150 mg tablet active Not Available Not Available Not Available azelastine 137 mcg (0.1 %) nasal spray USE 1 SPRAY IN EACH NOSTRIL TWICE DAILY 01/25 completed Not Available Not Available Not Available levofloxaci n 500 mg tablet Take 1 tablet every 24 hours by oral route. active Not Available Not Available No t Available scopolamine 1 mg over 3 days transdermal patch APPLY 1 PATCH TOPICALLY TO THE SKIN EVERY 72 HOURS 01/25 completed Not Available Not Available Not Available methylpredn isolone 4 mg tablets in a dose pack FOLLOW PACKAGE DIRECTION S 05/10 completed Not Available Not Available Not Available albuterol sulfate HFA 90 mcg/actuati on aerosol inhaler 01/25 completed Not Available Not Available Not Available colchicine 0.6 mg tablet 12/03 completed Not Available Not Available Not Available ketoconazol e 2 % topical cream active Not Available Not Available Not Available hydroxyzine HCl 10 mg tablet Take by oral route four times daily PRN for itching 12/03 completed Not Available Not Available Not Available ondansetron 4 mg disintegrat ing tablet 01/26 completed Not Available Not Available Not Available cefdinir 300 mg capsule TAKE 1 CAPSULE BY MOUTH DAILY 01/25 completed Not Available Not Available Not Available fluticasone propionate 50 mcg/actuati on nasal spray,suspe nsion ADMINISTE R 1 SPRAY IN EACH NOSTRIL BID 01/25 completed Not Available Not Available Not Available metformin ER 500 mg tablet,exte nded release 24 hr active Not Available Not Available Not Available doxycycline hyclate 100 mg tablet 09/23 completed Not Available Not Available Not Available ipratropium bromide 21 mcg (0.03 %) nasal spray USE 2 SPRAYS IN EACH NOSTRIL TWICE DAILY NEEDED 01/25 completed Not Available Not Available Not Available irbesartan 300 mg tablet Take 1 tablet every day by oral route. 08/07 completed Not Available Not Available Not Available amoxicillin 875 mg-potassiu m clavulanate 125 mg tablet TAKE 1 TABLET BY MOUTH EVERY 12 HOURS FOR 10 DAYS 01/25 completed Not Available Not Available Not Available escitalopra m 10 mg tablet TAKE 1 TABLET BY MOUTH EVERY DAY active Not Available Not Available No t Available Zetia 10 mg tablet Take 1 tablet every day by oral route. active Not Available Not Available No t Available ciprofloxac in 0.3 %-dexametha sone 0.1 % ear drops,suspe nsion INSTILL 4 TO 5 DROPS IN RIGHT EAR TWICE DAILY FOR 10 DAYS 01/25 completed Not Available Not Available Not Available memantine 5 mg tablet 08/07 completed Not Available Not Available Not Available escitalopra m 5 mg tablet TAKE 1 TABLET BY MOUTH EVERY DAY 06/01 completed Not Available Not Available Not Available lidocaine (PF) 10 mg/mL (1 %) injection solution In office injection administe red by the provider 12/[address] [facility]: [phone] Not Available Not Available Not Available lidocaine (PF) 5 mg/mL (0.5 %) injection solution Take 60 mg by injection route. 12/03 completed Not Available Not Available Not Available Align (B.infantis ) daily 2012 active Not Available Not Available Not Avai lable Dexilant 60 mg capsule, delayed release Take 1 capsule every day by oral route for 56 days. 01/25 completed Not Available Not Available Not Available OneTouch Delica Lancets 33 gauge TEST BID UTD active Not Available Not Available No t Available Livalo 4 mg tablet Take 1 tablet every day by oral route. active Not Available Not Available No t Available ropivacaine (PF) 5 mg/mL (0.5 %) injection solution Take 40 mg by injection route. 01/[address] [facility] [phone] Not Available Not Available Not Available OneTouch Verio test strips TEST BID UTD 11/30 completed Not Available Not Available Not Available Breo Ellipta 100 mcg-25 mcg/dose powder for inhalation 01/25 completed Not Available Not Available Not Available potassium chloride ER 20 mEq tablet,exte nded release TAKE 1 TABLET BY MOUTH DAILY active Not Available Not Available No t Available Jardiance 10 mg tablet active Not Available Not Available Not Available colchicine 0.6 mg capsule Take 1 capsule every day by oral route. 03/07 completed Not Available Not Available Not Available Rexulti 0.25 mg tablet Take 1 tablet twice a day by oral route. 2023 active Not Available Not Available Not Avai lable Fluzone High-Dose 2019-20 (PF) 180 mcg/0.5 mL intramuscul ar syringe ADM 0.5ML IM UTD 05/18 completed Not Available Not Available Not Available Vitals Date Recorded Body height Body mass index (BMI) Body weight Heart rate Body temperature Oxygen saturation Oxygen saturation in Arterial blood by Pulse oximetry Systolic blood pressure Diastolic blood pressure Provider Name and Address Organization Details Last Updated DateTime 4 162.56 cm 26.9 kg/m2 15864 g 86 /min 97.2 [degF] 96 % 96 % 136 mm[Hg] 72 mm[Hg] EDITH Luque [employer] [facility] [employer] [facility] 4 11:28:15 Date Recorded Body height Body mass index (BMI) Body weight Heart rate Body temperature Oxygen saturation Oxygen saturation in Arterial blood by Pulse oximetry Systolic blood pressure Diastolic blood pressure Provider Name and Address Organization Details Last Updated DateTime 4 154.94 cm 28.9 kg/m2 13402.6 3 g 65 /min 97.8 [degF] 96 % 96 % 130 mm[Hg] 74 mm[Hg] EDITH Luque [employer] [facility] [employer] [facility] 4 11:02:39 Date Recorded Body height Body mass index (BMI) Body weight Heart rate Body temperature Oxygen saturation Oxygen saturation in Arterial blood by Pulse oximetry Systolic blood pressure Diastolic blood pressure Provider Name and Address Organization Details Last Updated DateTime 4 154.94 cm 27.4 kg/m2 12006.8 9 g 67 /min 97.2 [degF] 98 % 98 % 120 mm[Hg] 64 mm[Hg] EDITH Luque [employer] [facility] [employer] [facility] 4 11:37:38 Date Recorded Body height Body mass index (BMI) Body weight Heart rate Body temperature Oxygen saturation Oxygen saturation in Arterial blood by Pulse oximetry Systolic blood pressure Diastolic blood pressure Provider Name and Address Organization Details Last Updated DateTime 4 154.94 cm 27.2 kg/m2 68675.3 g 84 /min 97.3 [degF] 96 % 96 % 138 mm[Hg] 70 mm[Hg] EDITH Luque [employer] [facility] [employer] [facility] 4 10:48:36 Date Recorded Body height Body mass index (BMI) Body weight Heart rate Body temperature Oxygen saturation Oxygen saturation in Arterial blood by Pulse oximetry Systolic blood pressure Diastolic blood pressure Provider Name and Address Organization Details Last Updated DateTime 4 154.94 cm 28 kg/m2 73543.6 7 g 73 /min 97 [degF] 97 % 97 % 116 mm[Hg] 62 mm[Hg] EDITH Luque [place] [facility] 4 11:41:39 Social History Question Answer Notes LastModified by Social Touch Details LastModified Time Tobacco Smoking Status Never Smoker Not Available [facility] 11/10/2022 12:46:35 What Is Your Level Of Alcohol Consumption? None [id number] Information not available 11/10/2022 Are You Blind Or Do You Have Difficulty Seeing? No [id number] Information not available 11/10/2022 Are You Deaf Or Do You Have Serious Difficulty Hearing? No [id number] Information not available 11/10/2022 Sex: Female Functional Status Question Answer Note LastModified by Social Touch Details LastModified Time Do you have difficulty walking or climbing stairs? No [id number] Information not available 11/10/2022 Do you have transportation difficulties? No [id number] Information not available 11/10/2022 Are you able to walk? YESWOREST [id number] Information not available 11/10/2022 Do you have difficulty doing errands alone? No [id number] Information not available 11/10/2022 Are you able to care for yourself? Yes [id number] Information not available 11/10/2022 Do you have difficulty dressing or bathing? No [id number] Information not available 11/10/2022 Mental Status Question Answer Note LastModified by Social Touch Details LastModified Time Do you have difficulty concentrating, remembering or making decisions? No [id number] Information not available 11/10/2022 Family History Relationship Description Onset Age of this Age Resolved Age Notes LastModified by Organization Details LastModified Time Unspecified Relation Hypertensive disorder [id number] Not available 11/10/2022 12:46:37 Unspecified Relation Diabetes mellitus [id number] Not available 11/10/2022 12:46:37 Unspecified Relation Kidney disease [id number] Not available 11/10/2022 12:46:37 Notes:Mother at 76 in [facility]. No hx of any major medical problems. Father at 54 from GI malignancy. Had four brothers. Three are living and in good health. One brother in infancy from congenital heart. Has two sisters both living and in good health. Medical History Condition Response NERVE DISEASE N BLINDNESS N RHEUMATIC FEVER N KIDNEY STONES N BLADDER PROBLEMS N MRSA N OTHER # 1 N POLIO N LUNG DISEASE/DISORDER N HISTORY OF DRUG ABUSE N COPD Y RADIATION / CHEMOTHERAPY N Other # 2 N BLOOD DISEASES N EAR OR HEARING PROBLEMS N MUMPS N SHINGLES N BOWEL PROBLEMS N DEPRESSION (INCLUDING POST ) N STROKE/TIA N ULCERS N BENIGN PROSTATIC HYPERPLASIA N MEASLES N HYPOTENSION N MYOCARDIAL INFARCTION N OBESITY N GERD/NAUSEA N ANEURYSM N URINARY/BLADDER/KIDNEY PROBLEMS Y CORONARY ARTERY DISEASE (CAD) N ADDICTION CONCERNS N ENDOMETRIOSIS N Impotence N USE OF BLOOD THINNERS N SKIN PROBLEMS N GASTROINTESTINAL DISORDER N PERIPHERAL VASCULAR DISEASE N MUSCLE,JOINT OR BONE PROBLEMS N GASTROINTESTINAL BLEEDING N BLOOD CLOTS N ASTHMA N CATARACTS N ERECTILE DYSFUNCTION N VARICOSITIES N GI PROBLEMS N Low Testosterone N INFERTILITY N AIDS/HIV N CHEMOTHERAPY / RADIATION N LIVER DISEASE N MALE HYPOGONADISM N HYPERTENSION Y Deficiency N TOURETTE'S N ANXIETY DISORDER N BLOOD TRANSFUSION N ANEMIA/BLOOD DISORDER Y CHRONIC EAR INFECTIONS N BRONCHITIS N TUBERCULOSIS N GLAUCOMA N FOOT PROBLEM N DIVERTICULITIS N CHICKENPOX N SLEEP APNEA N INFECTIOUS DISEASE N HEART ARRHYTHMIA N PROSTATE N INSOMNIA N HIGH CHOLESTEROL / HYPERLIPIDEMIA Y HYPERTHYROIDISM N EYE PROBLEMS N EDEMA N CHRONIC PAIN SYNDROME N HYPOTHYROIDISM N CAROTID BLOCKAGE N CONSTIPATION N BACK / NECK PROBLEMS N HAVE YOU BEEN HOSPITALIZED OR SEEN IN [facility] ER IN THE PAST YEAR ? N ATHEROSCLEROSIS N BREAST PROBLEMS N DIALYSIS N ECZEMA N OSTEOPOROSIS N ARTHRITIS Y NO SIGNIFICANT PAST MEDICAL HISTORY N APPENDICITIS N DIABETES, TYPE Y BAD TEETH N ENT N HEARTBURN / REFLUX N AUTISM SPECTRUM DISORDER (ASD) N HEPATITIS / LIVER DISEASE N GOUT N SLEEP DISORDER N ALZHEIMER'S DISEASE N Brain Problems N HERPES N DEMENTIA N HEADACHES/MIGRAINES N SEIZURES/EPILEPSY N VASCULAR DISEASE N PACEMAKER N Blood Disorder N DIZZINESS N HEART DISEASE/HEART PROBLEMS N KIDNEY DISEASE N MULTIPLE SCLEROSIS N CARDIAC ARRHYTHMIA N CANCER: SPECIFY N ATRIAL FIBRILLATION N Gall Stones N PULMONARY EMBOLISM N AUTOIMMUNE DISEASE N Gynecological HistoryNo gynecological history recorded. Obstetrics History GPAL:G 0 P 0 0 0 0 Immunizations Vaccine Type Date Status Note Provider Nam e and Address Organization Details Recorded Time Influenza, high-dose, quadrivalent, PF 3 completed DALTON Murrell Lenin [facility] 06/28/2023 17:21:42 Influenza, split virus, trivalent, preservative 4 completed Not Available [facility] 11/10/2022 12:53:41 Influenza, split virus, trivalent, preservative 3 completed Not Available [facility] 11/10/2022 12:53:41 Influenza, split virus, quadrivalent, preservative 1 completed Not Available [facility] 11/10/2022 12:53:41 SARS-COV-2 (COVID-19) vaccine, UNSPECIFIED 1 completed Not Available [facility] 11/10/2022 12:53:41 SARS-COV-2 (COVID-19) vaccine, UNSPECIFIED 1 completed Not Available [facility] 11/10/2022 12:53:41 Influenza, high-dose, trivalent, PF 7 completed Not Available [facility] 11/10/2022 12:53:42 Pneumococcal conjugate PCV 13 5 completed Not Available [facility] 11/10/2022 12:53:42 Influenza, high-dose, quadrivalent, PF 1 completed Not Available [facility] 11/10/2022 12:53:42 Influenza, high-dose, quadrivalent, PF 2 completed Not Available [facility] 11/10/2022 12:53:42 Influenza, high-dose, trivalent, PF 8 completed Not Available [facility] 11/10/2022 12:53:42 Influenza, high-dose, trivalent, PF 6 completed Not Available [facility] 11/10/2022 12:53:42 Influenza, high-dose, trivalent, PF 7 completed Not Available [facility] 11/10/2022 12:53:42 Influenza, split virus, quadrivalent, preservative 5 completed Not Available [facility] 11/10/2022 12:53:43 Influenza, high-dose, trivalent, PF 4 completed Margoth Angulo MD [address], [place], [address], [facility] 08/07/2024 12:05:13 Pneumococcal conjugate PCV20, polysaccharide SFY544 conjugate, adjuvant, PF 4 completed Margoth Angulo MD [address], [place], [address], [place] [facility] 08/07/2024 12:05:13 Past Encounters Encounter ID Performer Location Encounter Start Date Encounter Closed Date Diagnosis/Indication Diagnosis SNOMED-CT Code Diagnosis ICD10 Code Diagnosis Note [id number] [facility] Josevi tammy [facility] [address] , [place] [address] 01/20/2021 00:00:00 01/20/2021 13:00:10 [id number] [facility] Internal Med Nereida munoz [facility] [place] [address] 05/29/2021 00:00:00 05/29/2021 16:52:54 [id number] [facility] [place] [address] 09/18/2021 00:00:00 09/18/2021 11:23:18 [id number] [facility] Internal Med Nereida munoz [address] [place] [address] [place] [address] 12/29/2021 00:00:00 12/29/2021 12:47:51 [id number] [facility] Ortho Kentrell Dave [address] [facility] [address] [place] [address] 01/21/2022 00:00:00 01/21/2022 11:55:59 [id number] [facility] Internal Med Josevi lle [address] [place] [address] 05/18/2022 00:00:00 05/18/2022 12:14:20 [id number] Margoth Angulo MD [facility] Internal Med [place] [address] [place] [address] [place] [address] 12/03/2022 11:15:02 12/03/2022 12:01:10 Essential hypertension 81513142 I10 Gastroesop hageal reflux disease 344276685 K21.9 Pure hypercholesterolemia 173706692 E78.00 Abdominal pain 13683090 R10.9 [id number] Margoth Angulo MD [facility] Internal Med [place] [address] [place] [address] [place] [address] 03/01/2023 14:40:27 03/01/2023 15:03:31 Cervical radiculopathy 74960224 M54.12 [id number] Giovani Maher MD [facility] [place] [address] [place] [address] 05/24/2023 13:52:44 05/24/2023 14:44:34 Bilateral shoulder joint pain 0496605760 3024365 M25.511 Bilateral shoulder osteoarthritis 8773492007 61129 M19.011 M19.559 [id number] ELAINE Santacruz [facility] [place] [address] [place] [address] 10/27/2023 13:29:16 10/27/2023 14:38:35 Bilateral shoulder osteoarthritis 2923940630 50457 M19.011 M19.012 Bilateral shoulder joint pain 6622570650 1445516 M25.530 [id number] Margoth Angulo MD [facility] Internal Med [place] [address] [place] [address] [place] [address] 11/04/2023 11:10:13 11/04/2023 12:13:51 Ataxia 02394856 R27.0 Cervical radiculopathy 29506672 M54.12 Essential hypertension 13583155 I10 Pure hypercholesterolemia 577039916 E78.00 Type 2 alexis betes mellitus 99597490 E11.9 [id number] Margoth Angulo MD [facility] Internal Med [place] [address] [place] [address] [place] [address] 01/12/2024 10:57:40 01/12/2024 11:30:48 Memory impairment 236584873 R41.3 Cerebrovas cular accident 468498648 I63.9 Essential hypertension 09232449 I10 Gastroesop hageal reflux disease 290540079 K21.9 Gout 67535418 M10.9 Type 2 alexis betes mellitus 99937426 E11.9 Pure hypercholesterolemia 439925898 E78.00 [id number] Margoth Angulo MD [facility] Internal Med [facility] [address] [facility] [address] [place] [address] 01/26/2024 11:23:50 01/26/2024 12:13:56 Transition of care 2410319061 105 Z75.8 Cerebrovas cular accident 963234541 I63.9 Essential hypertension 25776373 I10 Pure hypercholesterolemia 358143739 E78.00 Type 2 alexis betes mellitus 12371877 E11.9 [id number] Margoth Angulo MD [facility] Internal Med [facility] [address] [place] [address] , [place] [address] 05/10/2024 10:43:13 05/10/2024 11:23:47 Dementia 68086653 F03.90 Essential hypertension 61728226 I10 Gastroesop hageal reflux disease 536252737 K21.9 Pure hypercholesterolemia 796897366 E78.00 Type 2 alexis betes mellitus 52262674 E11.9 [id number] Margoth Angulo MD [facility] Primary Care [facility] [address] [facility] [address] [place] [address] 08/07/2024 11:33:01 08/07/2024 12:33:19 Administration of influenza vaccine 85612640 Z23 Administra tion of pneumococcal vaccine 13045892 Z23 Dementia 01746064 F03.90 Essential hypertension 09955046 I10 Pure hypercholesterolemia 990960178 E78.00 Health Concerns Section Related Observation LastModified by Organization Detai ls LastModified Time None Recorded Concern Status LastModified by Organization Details LastModified Time None Recorded Advance Directives Directive None Recorded Payers Encounter Date Sequence Insurance Name Policy Number Policy Dior Covered Member ID Dior Member ID Guarantor Name 11/04/2023 1 [place] Madyson J Enzo [id number] Madyson J Enzo 11/04/2023 2 [employer] (PPO) Madyson J Enzo [id number] Madyson J Enzo 01/12/2024 1 [place] Madyson J Enzo [id number] Madyson J Enzo 01/12/2024 2 [employer] (PPO) Madyson J Ezno [id number] Madyson J Enzo 01/26/2024 1 [place] Madyson J Enzo [id number] Madyson J Enzo 01/26/2024 2 [employer] (O) Madyson J Enzo [id number] Madyson J Enzo 05/10/2024 1 [place] Madyson J Enzo [id number] Madyson J Enzo 05/10/2024 2 [employer] (O) Madyson J Enzo [id number] Madyson J Enzo 08/07/2024 1 [place] Madyson J Enzo [id number] Madyson J Enzo 08/07/2024 2 [employer] (O) Madyson J Enzo [id number] Madyson J Enzo Notes Date Note Type Note Provider Name and Address Organization Details Recorded Time 11/04/2023 text/html Patient Name: Yisel BoothDate Of Service: Tuesday ( 11.04.2023 ): 1940 Age: 82 There has been approximately a 6 lb weight loss since 03/01/2023. This represents approximately a 3.7% change in weight. Weight change attributable to lifestyle changes. Vital Signs:Blood Pressure: Sitting Rt. Arm 136/72Pulse: Sitting 86 /min and RegularRespiratory Rate: 12Height 61 in or 1.5 mWeight 157 lb or 71.2 kgBMI 29.7Temperature: 97.2 F or 36.2 CPulse Oximetry: 96 % at rest on no oxygen Chief Complaint: Addressed in HPI Problems or conditions discussed in the HPI were the only ones reviewed during the encounter.Only social and family history addressed in the HPI were reviewed during this encounter. Attendant(s): SonConstitutional and Systemic Symptoms:none Medication Reconciliation: from medication list. [id number]: Bone density scan demonstrated osteopenia with a FRAX score of 21% for major osteoporotic fracture and 5.8% for hip fracture. Should be on calcium, vitamin-D supplementation and bisphosphonates. 08-23-2023: Renal ultrasound demonstrated normal renal size. Demonstrated increased parenchymal echogenicity with multiple small simple renal cysts measuring up to six point 1 cm on the left. Incidental liver cyst noted at 4.5 cm on the liver. No hydronephrosis. 11-02-2023: CT brain areas of prior infarction in the right basal ganglia as well as left parietal lobe. History of Present Illness #1. Complaining of several week history of and difficulty in ambulating. Patient is having some form of ataxia when walking down the hallways has to hold onto the wall. Denies any actual true vertigo or spinning like sensation. Has had no associated numbness, tingling weakness. On neurological examination outside a shuffling gait no focal neurological abnormalities are noted. Does have a somewhat emotionless type face ease. No cogwheel rigidity is noted. Was in the emergency room and a repeat CT head scan for an which was negative. Has a history of cervical radiculopathy in the past. Likely will need MRI of the brain as well as cervical spine to further assess.: #2. Essential Hypertension: Stage: Stage I Interval Neurological Complaints weakness and ataxia. No shortness of breath, orthopnea or cardiovascular symptoms. No other symptoms related to end organ damage. Pressure has been under fair control. Currently normal. No other end organ symptoms or findings. Therapy reviewed regarding management of hypertension and includes salt restriction and Avapro, Hydralazine, Metoprolol Tartrate and Procardia Xl. #3. Type II Hypercholesterolaemia: Currently taking medication and tolerating well. No interval complaints of any muscle pain or arthralgia. No significant liver changes with medications. Last lipid panel: fair control. Therapy reviewed regarding treatment of cholesterol management and include diet and Medication. #4. Type II Diabetes: Has had no polyuria polyphagia or polydipsia. Has had no hypoglycemic like responses. No new history of any numbness, tingling, weakness or visual problems. No nausea, anorexia or other constitutional symptoms. There has been no foot problems or non healing lesions. The last HAIC was none done recently. Average blood sugars unknown. Checking sugars : several times a week Medication Types Include: SGLT2 inhibitors Secondary complications include none. Macro-vascular complications include none. Therapy reviewed regarding diabetic management and include Jardiance Compliance: good Renal Protection: ARBs Lipid management: statins Urinary microalbumin: A1 . Ophthalmological: has seen eye doctor within the last year Active Medication ListAvapro 300 MG (TABLET - ORAL) Once DailyLipitor 40 MG (TABLET - ORAL) Once DailyProcardia Xl 60 MG (TABLET, EXTENDED RELEASE - ORAL) One Bid For HtnDexilant 60 MG (CAPSULE, DELAYED RELEASE - ORAL) One Daily For RefluxLorazepam .5 MG TABLET One Tid For AnxietyJardiance 10 MG TABLET, FILM COATED One DailyMetoprolol Tartrate 100 MG TABLET One BidHydralazine 50 MG TABLET One BidAllopurinol 300 MG TABLET One DailyPotassium Chloride 20 MEQ (TABLET, EXTENDED RELEASE - ORAL) One DailyLexapro 10 MG TABLET, FILM COATED Once DailyLasix 40 MG TABLET One Twice A Day Adverse Drug Reactions ReviewedCrestor MyalgiaLescol Xl Does Not WorkLipitor MyalgiaPravachol Myalgia Vaccination and Vhsvfkfmuhdh8425-51 Xwftfnkji0304-21 Covid Pxbpkmo1321-90 Prevnar 13 Lh1340-88 Pneumovax Surgical Ymyawij5909-34 Right Nknlhrjz9973-77 Cataract Left Eye Preventative Testing Confirmed by Our Ahqlcay8103/16/2023 MAMMOGRAM ALBUMIN 4.2 G/DL N005/20/2022 MICRO ALBUMIN >1140.0 MG/L H005/20/2022 HAIC 5.5 % N001/06/2022 DEXA SCAN06/16/2021 JVPTIYUWBAZXD41/18/2021 COLONOSCOPY (5 YEARS) UPPER SHYHBJQOG87/06/2017 CT THORAX Social 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 Family HistoryMother at 76 in [place]. No hx of any major medical problems. Father at 54 from GI malignancy. Had four brothers. Three are living and in good health. One brother in infancy from congenital heart. Has two sisters both living and in good health. Margoth Angulo MD [address] [facility], [place], [address], [place] [facility] [employer] [facility] 11/04/2023 12:07:23 01/12/2024 text/html Patient Name: Yisel BoothDate Of Service: January ( 01.12.2024 ): 1940 Age: 83 There has been approximately a 4 lb weight loss since 11/04/2023. This represents approximately a 2.5% change in weight. Weight change attributable to lifestyle changes. Vital Signs:Blood Pressure: Sitting Rt. Arm 130/74Pulse: Sitting 65 /min and RegularRespiratory Rate: 12Height 61 in or 1.5 mWeight 153 lb or 69.4 kgBMI 28.9Temperature: 97.8 F or 36.6 CPulse Oximetry: 96 % at rest on no oxygen Chief Complaint: Addressed in HPI Problems or conditions discussed in the HPI were the only ones reviewed during the encounter.Only social and family history addressed in the HPI were reviewed during this encounter. Attendant(s): SonConstitutional and Systemic Symptoms:none Medication Reconciliation: from medication list. [id number]: Bone density scan demonstrated osteopenia with a FRAX score of 21% for major osteoporotic fracture and 5.8% for hip fracture. Should be on calcium, vitamin-D supplementation and bisphosphonates. 08-23-2023: Renal ultrasound demonstrated normal renal size. Demonstrated increased parenchymal echogenicity with multiple small simple renal cysts measuring up to six point 1 cm on the left. Incidental liver cyst noted at 4.5 cm on the liver. No hydronephrosis. 11-02-2023: CT brain areas of prior infarction in the right basal ganglia as well as left parietal lobe. 11-08-2023: MRI of the brain demonstrates an acute infarct involving the left side of the katerin consistent with the patient's ataxic type symptoms.11/08/2023: MRI of the cervical spine demonstrates significant multilevel discogenic disease. No evidence any central canal stenosis. Some enlargement of thyroid with multiple heterogenous small nodules noted. History of Present Illness #1. Memory impairment issues for the last several months particularly since her brainstem infarct. Has had problems remembering dates, people's names and forgetting minor things around the house. On physical examination on mini-mental status examination is disoriented to place and time. Is also unable to remember three unrelated objects none actually. Still having progressive problems with ambulation.: #2. Cerebrovascular accident brainstem. Probably accounts for much of her neurological glands particularly with ambulatory problems.: #3. Essential Hypertension: Stage: Stage I Interval Neurological Complaints no headaches, weakness, visual changes, ataxia, aphasia and apraxia. No shortness of breath, orthopnea or cardiovascular symptoms. No other symptoms related to end organ damage. Pressure has been under excellent control. Currently normal. No other end organ symptoms or findings. Therapy reviewed regarding management of hypertension and includes salt restriction and Avapro, Hydralazine, Metoprolol Tartrate and Procardia Xl. #4. Type II Hypercholesterolaemia: Currently taking medication and tolerating well. No interval complaints of any muscle pain or arthralgia. No significant liver changes with medications. Last lipid panel: fair control. Therapy reviewed regarding treatment of cholesterol management and include diet and Lipitor. #5. Type II Diabetes: Has had no polyuria polyphagia or polydipsia. Has had no hypoglycemic like responses. No new history of any numbness, tingling, weakness or visual problems. No nausea, anorexia or other constitutional symptoms. There has been no foot problems or non healing lesions. The last HAIC was DCCT HAIC: 5.5 Calculated MB mg%. Average blood sugars unknown. Checking sugars : several times a week Medication Types Include: SGLT2 inhibitors Secondary complications include none. Macro-vascular complications include none. Therapy reviewed regarding diabetic management and include Jardiance Compliance: good Renal Protection: ARBs Lipid management: statins Urinary microalbumin: A1 . Ophthalmological: has seen eye doctor within the last year #6. Gouty Arthritis: History of gouty arthritis. Has had no attacks since last examination. Currently taking allopurinol. No interval complaints of any new joint involvement. #7. Hx of esophageal reflux currently stable. Hx of Complications: none The severity, duration and intensity of symptoms have improved. Frequency: most meals Treatment consists medications taken on a regular basis. Current therapy includes Dexilant. There has been no nausea, eructation, vomiting, hematemesis, dysphagia, velopharyngeal insufficiency and odynophagia. No change in he frequency or intensity of symptoms. Has had no melena. Has had no . Discussed use of H2 antagonists and the possibility of trying to reduce the frequency of the use of any PPI inhibitors and try H2 antagonists to see if symptoms can be controlled with lease intensive therapy since a number of complications are associated with chronic prolonged use of PPI inhibitors. Active Medication ListAvapro 300 MG (TABLET - ORAL) Once DailyLipitor 40 MG (TABLET - ORAL) Once DailyProcardia Xl 60 MG (TABLET, EXTENDED RELEASE - ORAL) One Bid For HtnDexilant 60 MG (CAPSULE, DELAYED RELEASE - ORAL) One Daily For RefluxLorazepam .5 MG TABLET One Tid For AnxietyJardiance 10 MG TABLET, FILM COATED One DailyMetoprolol Tartrate 100 MG TABLET One BidHydralazine 50 MG TABLET One BidAllopurinol 300 MG TABLET One DailyAspirin 81 MG TABLET One DailyPlavix 75 MG TABLET, FILM COATED One DailyPotassium Chloride 20 MEQ (TABLET, EXTENDED RELEASE - ORAL) One DailyLexapro 10 MG TABLET, FILM COATED Once DailyLasix 40 MG TABLET One Twice A Day Adverse Drug Reactions ReviewedCrestor MyalgiaLescol Xl Does Not WorkLipitor MyalgiaPravachol Myalgia Vaccination and Rykaeaexizno8638-06 Zixouceru0287-43 Covid Jvsdygy9639-57 Prevnar 13 Lk3754-74 Pneumovax Surgical Tcxndxr9592-02 Right Svvqopfy6151-16 Cataract Left Eye Preventative Zbxpdnq0611/10/2023 ALBUMIN 4.2 G/DL10/21/2023 WIGGBSRIC67/05/2023 MAMMOGRAM MICRO ALBUMIN >1140.0 MG/L H005/20/2022 HAIC 5.5 % N001/06/2022 DEXA SCAN06/16/2021 SBJHLJYUSRVFH84/18/2021 COLONOSCOPY (5 YEARS) 6001/17/2019 UPPER CKCYEGOOZ98/06/2017 CT THORAX Social 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 Family HistoryMother at 76 in MVA. No hx of any major medical problems. Father at 54 from GI malignancy. Had four brothers. Three are living and in good health. One brother in infancy from congenital heart. Has two sisters both living and in good health. Margoth Angulo MD [address] [facility], [address], [place], [address], [place] [facility] 01/12/2024 11:23:30 01/26/2024 text/html Patient Name: Yisel BoothDate Of Service: January ( 01.26.2024 ): 1940 Age: 83 There has been approximately a 8 lb weight loss since 01/12/2024. This represents approximately a 5.2% change in weight. Weight change attributable to lifestyle changes. Vital Signs:Blood Pressure: Sitting Rt. Arm 120/64Pulse: Sitting 67 /min and RegularRespiratory Rate: 12Height 61 in or 1.5 mWeight 145 lb or 65.8 kgBMI 27.4Temperature: 97.2 F or 36.2 CPulse Oximetry: 98 % at rest on no oxygen Chief Complaint: Addressed in HPI Problems or conditions discussed in the HPI were the only ones reviewed during the encounter.Only social and family history addressed in the HPI were reviewed during this encounter. Attendant(s): SonConstitutional and Systemic Symptoms:generalized fatigue Medication Reconciliation: from medication list. [id number]: Bone density scan demonstrated osteopenia with a FRAX score of 21% for major osteoporotic fracture and 5.8% for hip fracture. Should be on calcium, vitamin-D supplementation and bisphosphonates. 08-23-2023: Renal ultrasound demonstrated normal renal size. Demonstrated increased parenchymal echogenicity with multiple small simple renal cysts measuring up to six point 1 cm on the left. Incidental liver cyst noted at 4.5 cm on the liver. No hydronephrosis. 11-02-2023: CT brain areas of prior infarction in the right basal ganglia as well as left parietal lobe. 11-08-2023: MRI of the brain demonstrates an acute infarct involving the left side of the katerin consistent with the patient's ataxic type symptoms.11/08/2023: MRI of the cervical spine demonstrates significant multilevel discogenic disease. No evidence any central canal stenosis. Some enlargement of thyroid with multiple heterogenous small nodules noted. History of Present Illness #1. Transition of care documentation from recent hospitalization. Clinically stable at this time. When back in for generalized weakness possible falls at intermittently. 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 Currently is doing reasonably well. New balance and ambulatory skills a quite normal at this time. Does need to be followed up with no neurology for further evaluation. According the family she has having a harder time remembering things and may be taking her medications inappropriately. Seems to be doing reasonably well at this time. Will continue on her current medications as outlined below.: #2. Essential Hypertension: Stage: Stage I Interval Neurological Complaints no headaches, dizziness, weakness, visual changes, ataxia, aphasia and apraxia. No shortness of breath, orthopnea or cardiovascular symptoms. No other symptoms related to end organ damage. Pressure has been under excellent control. Currently normal. No other end organ symptoms or findings. Therapy reviewed regarding management of hypertension and includes salt restriction and Chlorthalidone, Hydralazine, Metoprolol Tartrate and Procardia Xl. #3. Type II Hypercholesterolaemia: Currently taking medication and tolerating well. No interval complaints of any muscle pain or arthralgia. No significant liver changes with medications. Last lipid panel: fair control. Therapy reviewed regarding treatment of cholesterol management and include diet and Lipitor. #4. Type II Diabetes: Has had no polyuria polyphagia or polydipsia. Has had no hypoglycemic like responses. No new history of any numbness, tingling, weakness or visual problems. No nausea, anorexia or other constitutional symptoms. There has been no foot problems or non healing lesions. The last HAIC was DCCT HAIC: 5.6 Calculated MB mg%. Average blood sugars 116-125 mg%. Checking sugars : several times a week Medication Types Include: SGLT2 inhibitors Secondary complications include none. Macro-vascular complications include none. Therapy reviewed regarding diabetic management and include Medication Compliance: good Renal Protection: Jardiance Lipid management: statins Urinary microalbumin: has seen eye doctor within the last year . Ophthalmological: has seen eye doctor within the last year Active Medication ListLipitor 40 MG (TABLET - ORAL) Once DailyProcardia Xl 60 MG (TABLET, EXTENDED RELEASE - ORAL) One Bid For HtnChlorthalidone 25 MG TABLET One DailyJardiance 10 MG TABLET, FILM COATED One DailyMetoprolol Tartrate 100 MG TABLET One BidHydralazine 50 MG TABLET One Bid Adverse Drug Reactions ReviewedCrestor MyalgiaLescol Xl Does Not WorkLipitor MyalgiaPravachol Myalgia Vaccination and Ggqbqojrjrrf1594-03 Oynuymeuh0540-09 Covid Dahkjmi2817-73 Prevnar 13 Ht7879-49 Pneumovax Surgical Aegrgkb9751-31 Right Wuwtlxwv4291-59 Cataract Left Eye Preventative Jlqefgt6201/12/2024 ALBUMIN 4.3 G/DL N001/12/2024 HAIC 5.6 % OF TOTAL HGB N010/21/2023 QLZAEVEOZ68/05/2023 MAMMOGRAM /04/2022 MICRO ALBUMIN >1140.0 MG/L H001/06/2022 DEXA SCAN06/16/2021 SQBOSAWRHPZPT05/18/2021 COLONOSCOPY (5 YEARS) UPPER OYABDYOCE32/06/2017 CT THORAX Social 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 Family HistoryMother at 76 in MVA. No hx of any major medical problems. Father at 54 from GI malignancy. Had four brothers. Three are living and in good health. One brother in infancy from congenital heart. Has two sisters both living and in good health. Active Medication ListLipitor 40 MG (TABLET - ORAL) Once DailyProcardia Xl 60 MG (TABLET, EXTENDED RELEASE - ORAL) One Bid For HtnChlorthalidone 25 MG TABLET One DailyJardiance 10 MG TABLET, FILM COATED One DailyMetoprolol Tartrate 100 MG TABLET One BidHydralazine 50 MG TABLET One Bid Adverse Drug Reactions ReviewedCrestor MyalgiaLescol Xl Does Not WorkLipitor MyalgiaPravachol Myalgia Vaccination and Tzdvddmnlhoz5845-67 Rvrofxohc5844-76 Covid Oqdneat5544-77 Prevnar 13 Ln8656-83 Pneumovax Surgical Stlfznx5697-80 Right Fdcxlomb9086-31 Cataract Left Eye Preventative Apdkdum6001/12/2024 ALBUMIN 4.3 G/DL N001/12/2024 HAIC 5.6 % OF TOTAL HGB N010/21/2023 LTQQLYMVH24/05/2023 MAMMOGRAM /04/2022 MICRO ALBUMIN >1140.0 MG/L H001/06/2022 DEXA SCAN06/16/2021 KXUCWAOYJRBTP52/18/2021 COLONOSCOPY (5 YEARS) UPPER XHAIDELPM45/06/2017 CT THORAX Social 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 Family HistoryMother at 76 in MVA. No hx of any major medical problems. Father at 54 from GI malignancy. Had four brothers. Three are living and in good health. One brother in infancy from congenital heart. Has two sisters both living and in good health. Margoth Angulo MD [address] [facility], [facility] [address], [place], [address], [facility] [employer] 01/26/2024 12:07:56 05/10/2024 text/html Patient Name: Yisel BoothDate Of Service: April ( 05.10.2024 ): 1940 Age: 83 Vital Signs:Blood Pressure: Sitting Rt. Arm 138/70Pulse: Sitting 84 /min and RegularRespiratory Rate: 14Height 61 in or 1.5 mWeight 144 lb or 65.3 kgBMI 27.2Temperature: 97.3 F or 36.3 CDCCT HAIC: 5.6 Calculated MB mg%Pulse Oximetry: 96 % at rest on no oxygen Chief Complaint: Addressed in HPI Problems or conditions discussed in the HPI were the only ones reviewed during the encounter.Only social and family history addressed in the HPI were reviewed during this encounter. Attendant(s): NoneConstitutional and Systemic Symptoms:none Medication Reconciliation: from medication list. Yuznorztjki00-56-1225: Bone density scan demonstrated osteopenia with a FRAX score of 21% for major osteoporotic fracture and 5.8% for hip fracture. Should be on calcium, vitamin-D supplementation and bisphosphonates. 08-23-2023: Renal ultrasound demonstrated normal renal size. Demonstrated increased Parenchymal echogenicity with multiple small simple renal cysts measuring up to six point 1 cm on the left. Incidental liver cyst noted at 4.5 cm on the liver. No hydronephrosis. 11-02-2023: CT brain areas of prior infarction in the right basal ganglia as well as left parietal lobe. 11-08-2023: MRI of the brain demonstrates an acute infarct involving the left side of the katerin consistent with the patient's ataxic type symptoms.11/08/2023: MRI of the cervical spine demonstrates significant multilevel discogenic disease. No evidence any central canal stenosis. Some enlargement of thyroid with multiple heterogenous small nodules noted. History of Present Illness #1. Essential Hypertension: Stage: Stage I Interval Neurological Complaints no headaches, dizziness, weakness, visual changes, ataxia, aphasia and apraxia. No shortness of breath, orthopnea or cardiovascular symptoms. No other symptoms related to end organ damage. Pressure has been under excellent control. Currently normal. No other end organ symptoms or findings. Therapy reviewed regarding management of hypertension and includes salt restriction and Chlorthalidone, Hydralazine, Metoprolol Tartrate and Procardia Xl. #2. Type II Hypercholesterolaemia: Currently taking medication and tolerating well. No interval complaints of any muscle pain or arthralgia. No significant liver changes with medications. Last lipid panel: excellent control. Therapy reviewed regarding treatment of cholesterol management and include diet and Lipitor. #3. Type II Diabetes: Has had no polyuria polyphagia or polydipsia. Has had no hypoglycemic like responses. No new history of any numbness, tingling, weakness or visual problems. No nausea, anorexia or other constitutional symptoms. There has been no foot problems or non healing lesions. The last HAIC was DCCT HAIC: 5.6 Calculated MB mg%. Average blood sugars unknown. Checking sugars : infrequently Medication Types Include: SGLT2 inhibitors Secondary complications include none. Macro-vascular complications include none. Therapy reviewed regarding diabetic management and include Jardiance Compliance: good Renal Protection: starting on a calcium hang Lipid management: statins Urinary microalbumin: A1 . Ophthalmological: has seen eye doctor within the last year. Control: Good Control 6.2 - 7.0 #4. Hx of esophageal reflux currently stable. Hx of Complications: none The severity, duration and intensity of symptoms have improved. Frequency: most meals Treatment consists medications taken on intermittent basis. Current therapy includes no medication. There has been no dysphagia, eructation, vomiting, hematemesis, dysphagia and velopharyngeal insufficiency. No change in he frequency or intensity of symptoms. Has had no melena. Has had no . Discussed use of H2 antagonists NA. #5. Hx of dementia. Currently stable. There has been no clinical change in cognitive functions. Performance of activities of daily living has remained unchanged. Currently taking no medication Mini-Cog Score: Mild Cognitive Impairment #6. The patient has mobility limitation that significantly impairs their ability to participate in one or more mobility related activities of daily living in the home. Needs a walker with following description: standard, wheels and seat brakes. Active Medication ListLipitor 40 MG (TABLET - ORAL) Once DailyProcardia Xl 60 MG (TABLET, EXTENDED RELEASE - ORAL) One Bid For HtnChlorthalidone 25 MG TABLET One DailyJardiance 10 MG TABLET, FILM COATED One DailyMetoprolol Tartrate 100 MG TABLET One BidHydralazine 50 MG TABLET One Bid Adverse Drug Reactions ReviewedCrestor MyalgiaLescol Xl Does Not WorkLipitor MyalgiaPravachol Myalgia Vaccination and Nrvvowcmqpfy0690-11 Nqrfqcqos5622-77 Covid Fzchptn7816-79 Prevnar 13 Ol4884-53 Pneumovax Surgical Ewridop2629-92 Right Bkopjgjb0923-59 Cataract Left Eye Preventative Testing( ) 01/12/2024 Albumin 4.3 G/DL N( ) 01/12/2024 HAIC 5.6 % OF TOTAL HGB N( ) 10/21/2023 Optometry( ) 03/16/2023 Mammogram 03/16/2025( ) 05/20/2022 Micro Albumin >1140.0 MG/L H(X) 01/06/2022 DEXA Scan 01/07/2024( ) 06/16/2021 Ophthalmology( ) 11/27/2020 Colonoscopy (5 Years) 11/27/2025( ) 01/17/2019 Upper Endoscopy( ) 10/18/2016 CT Thorax Social 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 Family HistoryMother at 76 in MVA. No hx of any major medical problems. Father at 54 from GI malignancy. Had four brothers. Three are living and in good health. One brother in infancy from congenital heart. Has two sisters both living and in good health. Margoth Angulo MD [address] [facility], [facility] [address], [place], [address], [facility] 05/10/2024 11:19:29 08/07/2024 text/html [facility] ( 08.07.2024 ): 09/23/1949 Age: 74 Chief Complaint: Addressed in HPI Problems or conditions discussed in the HPI were the only ones reviewed during the encounter.Only social and family history addressed in the HPI were reviewed during this encounter. Attendant(s): SonConstitutional and Systemic Symptoms:none Medication Reconciliation: from medication list. History of Present Illness #1. Progressive cognitive decline following her stroke. Is unable to remember very simple unrelated three objects. Is oriented to day of the week but not the year. Having difficulty in performing even simple arithmetic function such as subtracting by five 100. Gets lost at times when driving probably even short distances. States that she only drives short distances to the grocery store which I instructed her is one of the problems since she does not do extensive driving which would keep her driving skills at an optimum.: #2. Essential Hypertension: Stage: Stage I Interval Neurological Complaints no headaches, dizziness, weakness, visual changes, ataxia and aphasia. No shortness of breath, orthopnea or cardiovascular symptoms. No other symptoms related to end organ damage. Pressure has been under excellent control. Currently normal. No other end organ symptoms or findings. Therapy reviewed regarding management of hypertension and includes salt restriction. #3. Type I Hypercholesterolaemia: Currently not taking medication. No interval complaints of any muscle pain or arthralgia. No significant liver changes with medications. Last lipid panel: fair control. Therapy reviewed regarding treatment of cholesterol management and include diet and Crestor. Active Medication ListCrestor 20 MG (TABLET - ORAL) Once DailyEscitalopram 10 MG TABLET One Daily Vaccination and Immunization( ) 2023-07 INFLUENZA( ) 2014- PREVNAR 13 GC(X) 2016- PNEUMOVAX PREVNAR 20 Needed(X) 2020- COVID MODERNA(X) 2020- COVID 19 ALINA & ALINA( ) 2022- RSV Surgical Rngmrja5360-13 Lt. Rotator Aecy1809-89 Rt. Rotator Uiwn5581-83 Rt. Inguinal Jtyzzq6415-30 Lt. Inguinal Hernia Preventative Testing( ) 05/28/2024 Colonoscopy ( 5 Years ) 05/28/2029( ) 02/08/2024 Albumin 4.2 G/DL N(X) 01/28/2022 PSA 4.99 NG/ML H 01/29/2024( ) 10/02/2021 HAIC 5.3( ) 11/16/2017 Ophthalmology Social HistoryDoes not smoke cigarettes. 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
--- OUTSIDE RECORDS SUMMARY | 2024-10-23 19:03 | XMS_ITS | Referral Summary ---
Author Organization [facility] [employer] Address [address] [place] [address] Care Team Providers Care Asbestos Cloth Inspector Name Role Phone Clayton Angulo MD Primary Care Provider [phone] Source Comments [facility] [employer],non-owned Affiliates and Associated Physician Practices is amultiple site organization consisting of ambulatory clinics and hospital sitesin [place], [place], [place] and [place]. This disclosure is being madepursuant to the Care Everywhere program and may not contain all information available regarding this patient. Last updated 18.[facility] [employer] Immunizations Name Administration Dates Next Due INFLUENZA VACCINE, HIGH-DOSE , QUADR. (FLUZONE HIGH-DOSE QUADRIVALENT; 65Y+), 0.7 ML (HD-IIV4) 06/19/2020 Social History Tobacco Use Types Packs/Day Years Used Date Smoking Tobacco: Never Assessed Sex and Gender Information Value Date Recorded Sex Assigned at Not on file Gender Identity Not on file Sexual Orientation Not on file Plan of Treatment Not on file Care Teams Asbestos Cloth Inspector Relationship Specialty Start Date End Date Clayton Angulo MD [address] [place] [address] PCP - General 11/28/20
--- OUTSIDE RECORDS SUMMARY | 2024-10-23 19:03 | XMS_ITS | Clinical Summary ---
Author Organization [facility] [address] [facility] [address] Address [address] [place] [address] Care Team Providers Care Cash Register Balancer Name Role Phone Clayton Angulo MD Primary Care Provider Ac Butler MD Unavailable [phone] Young Juarez MD Unavailable Mahin Morataya MD Unavailable Allergies Active Allergy [...] total) by mouth daily Active blood-glucose meter (Artomatix AUTOCODE METER) kit Use daily to check [...] hyperglycemia, without long-term current use of insulin ([facility]) Check blood sugars once daily ac 90 each 3 9 Active lancets miscIndications :Type 2 diabetes mellitus with hyperglycemia, without long-term current use of insulin ([facility]) Check BG once daily rotating times ac [...] 1 tablet (10 mg total) by mouth support clerk before breakfast Active metFORMIN XR (GLUCOPHAGE XR) 500 mg 24 hr tabletIndicatio ns:Type 2 diabetes mellitus with hyperglycemia, without long-term current use of insulin (HCC) TAKE 2 TABLETS BY MOUTH DAILY WITH BREAKFAST 180 tablet 3 4 Active Active Problems Problem Noted Date Diagnosed Date Hyperlipidemia associated with type 2 diabetes tasha marino 05/30/2023 Assessment & Plan (09/29/2023 3:55 PM CUSTOMER EXPERIENCE MANAGER): Chronic, well-controlled Continue atorvastatin Update lipid profile Dyspnea 02/24/2021 Assessment & Plan (02/24/2021 1:44 PM CDT): Pt with hx of COPD and CHF Advised to follow up with PCP Microalbuminuria 10/25/2019 Assessment & Plan (10/25/2019 4:32 PM CUSTOMER EXPERIENCE MANAGER): Consider starting Invokana Hypertension associated with diabetes 07/31/2013 Overview (12/16/2016): HYPERTENSION NOS Assessment & Plan (09/29/2023 3:55 PM CUSTOMER EXPERIENCE MANAGER): Chronic, well-controlled CKD, following with renal Update [...] UNCNTRLD Assessment & Plan (09/29/2023 3:55 PM CUSTOMER EXPERIENCE MANAGER): Chronic, well-controlled Continue Jardiance Assessment & Plan [...] Metformin Assessment & Plan (10/25/2019 4:32 PM CUSTOMER EXPERIENCE MANAGER): Hba1c was Lab Results Component Value Date [...] Check lipid profile today Continue statin therapy Medical History Medical History Date Comments Hypertension Hypertension Hyperlipidemia Hyperlipidemia Type 2 diabetes mellitus (HCC) D iabetes type 2 Hx Other Medical proteinuria Hx Other Medical Renal Insuffici ency, Chronic Hx Other Medical Claustrophobic; Comments: [facility] 06/05/2014 - CHF (congestive heart failur e) (CMS/HCC) (HCC) Family History Medical History Relation Name Comments Diabetes type II Other Family hist ory of Diabetes -Type 2; Stent Son 2 Coronary Stent Placement; Relation Name Status Comments Other Son 1 Alive Son 2 Social History Tobacco Use Types Packs/Day Years [...] on file Legal Sex Female 7:54 AM CUSTOMER EXPERIENCE MANAGER Gender Identity Not on file Sexual Orientation Not on file Obstetrics History Last Filed Vital Signs Vital Sign Reading Time Taken Comments Blood Pressure 120/70 09/29/2023 3:12 PM CUSTOMER EXPERIENCE MANAGER Pulse 64 09/29/2023 3:12 PM CUSTOMER EXPERIENCE MANAGER Temperature - - Respiratory Rate 16 03/16/2022 10:05 AM CDT Oxygen Saturation 96% 11/23/2018 10:13 AM CDT Inhaled Oxygen Concentration - - Weight 73.5 kg (162 lb 1.6 oz) 09/29/2023 3:12 P M CUSTOMER EXPERIENCE MANAGER Height 154.9 cm (5' 1 ) 09/29/2023 3:12 PM CUSTOMER EXPERIENCE MANAGER Body Mass Index 30.63 09/29/2023 3:12 PM CUSTOMER EXPERIENCE MANAGER Plan of Treatment Health Maintenance Due Date Last Done Comments Fall Risk Assessment 1940 Osteoporosis Screening-Bone Density Scan 1940 eGFR 1940 DTaP/Tdap/Td Vaccine (1 - Tdap) 12/01/1950 Hepatitis B Screening 12/01/1957 Zoster Vaccine (1 of 2) 12/01/1989 Well Visit 65+ 12/01/2004 Dilated Eye Exam 01/25/2018 01/25/2017 Albumin Creatinine Ratio, Urine 03/07/2019 8 Lipid Panel 10/25/2020 10/25/2019, 11/11, 07/28/2017, Additional history exists Depression Screening 02/24/2022 02/24/2021, 10/25/2019, 05/05/2017 Hemoglobin A1C 03/29/2024 09/29/2023, 07/0 01/2022, 02/24/2021, Additional history exists Influenza Vaccine (#1) 2024 2, 06/23/2021, 06/02/2021, Additional history exists Foot Exam 09/29/2024 09/29/2023, 03/22/2019 Pneumococcal vaccine 65+ Completed 015, 06/12/2014, 09/12/2013 Procedures Procedure Name Priority Date/Time Associated Diagnosis Comments POCT HEMOGLOBIN A1C Routine 09/29/2023 3 :12 PM CUSTOMER EXPERIENCE MANAGER Type 2 diabetes mellitus with hyperglycemia, without long-term current use of insulin ([facility]/HCC) (HCC) POCT LIPID PANEL Routine 10/25/2019 2:10 PM CUSTOMER EXPERIENCE MANAGER Type 2 diabetes mellitus with hyperglycemia, without long-term current use of insulin (CMS/[facility]) ALBUMIN CREATININE RATIO, URINE Routine 03/07/2018 DIABETIC EYE EXAM Routine 01/25/2017 from Last 3 Months or Most Recently Relevant to Health Maintenance Results * (ABNORMAL) POCT hemoglobin A1c (09/29/2023 3:12 PM CUSTOMER EXPERIENCE MANAGER) Hemoglobin A1C, POC 5.6 % Blood spot 09/29/2023 3:12 PM CUSTOMER EXPERIENCE MANAGER us Mahin Morataya MD POINT OF CARE TEST ORDERABLES Fi nal Result * POCT lipid panel (10/25/2019 2:10 PM CUSTOMER EXPERIENCE MANAGER) Cholesterol, POC 186 mg/dL HDL, POC 56 mg/dL Triglycerides, POC 227 mg/dL LDL Cholesterol POC 85 mg/dL Chol/HDL Ratio, POC 3.3 Non-HDL Cholesterol, POC 130 mg/dL Cholesterol Total, POC 186 mg/dL Blood specimen (specimen) 10/25/2019 2:10 PM CUSTOMER EXPERIENCE MANAGER us Mahin Morataya MD POINT OF CARE TEST ORDERABLES Fi nal Result * (ABNORMAL) Microalbumin / creatinine ratio, urine, random (03/07/2018) SCRIBED Microalbumin 272.8(A) 0.0 - 16.6 EXTERNAL LAB Urine us Historical Provider LAB URINE ORDERABLES Edit ed Result - Final EXTERNAL LAB * Diabetic Eye Exam (01/25/2017) us Historical Provider HEALTH MAINTENANCE Edited Result - Final from Last 3 Months or Most Recently Relevant to Health Maintenance Insurance MEDICARE COMMERCIAL [facility] MEDICARE COMMERCIAL GENERIC MEDICARE COMMERCIAL GENERIC COMMERCIAL GENERIC MEDICARE Care Teams Cash Register Balancer Relationship Specialty Start Date End Date Clayton Angulo MD PCP - General 12/10/16 Ac Butler MD [address] [address] Consulting Physician Cardiology 07/13/18 Young Juarez MD [address] [address] Referring Physician Nephrology 03/08/23 [place] [id number] [address] Consulting Physician Endocrinology Diabetes & Metabolism 03/08/23
--- OUTSIDE RECORDS SUMMARY | 2024-10-23 19:03 | XMS_ITS | Clinical Summary ---
Author Organization [facility] Address [address] [place] [address] Phone Care Team Providers Care Furniture Fabricator Name Role Phone Clayton Angulo MD Primary Care Provider [phone] Allergies Active Allergy Reactions Criticality Noted Date Comments Aden Inhibitors Cough Medium Atorvastatin Medium 03/22/2019 Other reaction(s): Myalgias (muscle pain) Fluvastatin Medium 03/22/2019 Other reaction(s): Muscle pain, Other Penicillins Itching,Rash Medium 05/20/2016 Pravastatin Medium 03/22/2019 Other reaction(s): Myalgias (muscle pain) Rosuvastatin Other (see comments) Medium 03/22/2019 Medications Medication Sig Dispensed Refills Start Date End Date Status atorvastatin (LIPITOR) 40 MG tablet 1 daily 0 03/17/2017 Active potassium chloride (KLOR-CON) 20 MEQ CR tablet 1 daily 0 12/28/2017 Active furosemide (LASIX) 40 MG tablet 1 tab/cap bid 3 09/16/2015 Active fluticasone-vilante rol (BREO ELIPTA) 100-25 MCG/INH inhaler Inhale 1 puff daily Active fluticasone (FLONASE) 50 MCG/ACT nasal spray daily Activ e LORazepam (ATIVAN) 0.5 MG tablet every 8 hours Active montelukast (SINGULAIR) 10 MG tablet 10/05/2019 Active omeprazole (PriLOSEC) [address] capsule Take 40 mg by mouth 2 times daily 05/20/2016 Active ondansetron ODT (ZOFRAN-ODT) 4 MG dispersible tablet Take 4 mg by mouth 05/20/2016 Active Pitavastatin Calcium (LIVALO) 4 MG tablet daily Active hydrOXYzine (ATARAX) 10 MG tablet hydroxyzine HCl 10 mg tablet Active escitalopram (LEXAPRO) 10 MG tablet 09/19/2020 Active albuterol HFA (PROVENTIL HFA) 108 (90 Base) MCG/ACT inhaler 05/26/2021 Active ipratropium (ATROVENT) 0.03 % nasal spray 10/26/2021 Active irbesartan (AVAPRO) 300 MG tablet TAKE 1 TABLET BY MOUTH DAILY 90 tablet 3 02/16/2022 Active metoprolol tartrate (LOPRESSOR) 100 MG tablet TAKE 1 TABLET BY MOUTH TWICE DAILY WITH FOOD 180 tablet 3 02/22/2022 Active hydrALAZINE (APRESOLINE) 50 MG tablet Take 1 tablet (50 mg total) by mouth 3 (three) times a day 270 tablet 3 04/14/2022 Active metFORMIN XR 500 MG 24 hr tablet 06/10/2022 Active NIFEdipine CC (ADALAT CC) 90 MG 24 hr tablet Take 1 tablet (90 mg total) by mouth 1 (one) time each day 90 tablet 3 08/30/2022 Active cholecalciferol (VITAMIN D-3) 50 MCG (2000 UT) capsule Take 2 capsules (4,000 Units total) by mouth 1 (one) time each day 60 capsule 08/30/2022 Active Active Problems Problem Noted Date Diagnosed Date Hyperlipidemia 11/01/2018 Proteinuria 12/28/2017 Shortness of breath 10/05/2017 Type 2 diabetes mellitus wit h other diabetic kidney complication 02/12/2013 Stage 3a chronic kidney disease 02/12/2013 Hypertensive chronic kidney disease with stage 1 through stage 4 chronic kidney disease, or unspecified chronic kidney disease 02/12/2013 Benign essential hypertension 12/27/2011 Immunizations Name Administration Dates Next Due Influenza Split 06/12/2014 Influenza Split High Dose Pr eservative Free IM 06/19/2020,06/20/2018,07/21/2017,07/15,06/22/2016 Influenza TIV (IM) 06/01/2022,06/13/2019, 014 Influenza, Injectable, Quadrivalent 06/02/2021,1 Influenza, Quadrivalent 06/23/2021 Moderna Sars-cov-2 Vaccination 11/28/2020,2020,10/24/2019 Pneumococcal Conjugate 13-Valent 09/20/2014 Pneumococcal Polysaccharide 06/12/2014 Family History Medical History Relation Comments Kidney disease Neg Hx Kidney stone Neg Hx Social History Tobacco Use Types Packs/Day Years [...] Sign Reading Time Taken Comments Blood Pressure 138/80 08/30/2022 11:05 AM ASIC DESIGN ENGINEER Pulse 84 08/30/2022 11:05 AM ASIC DESIGN ENGINEER Temperature 34.9 C (94.9 F) 08/30/2022 11:05 AM ASIC DESIGN ENGINEER Respiratory Rate - - Oxygen Saturation - - Inhaled Oxygen Concentration - - Weight 75.8 kg (167 lb) 08/30/2022 11:05 AM ASIC DESIGN ENGINEER Height 162.6 cm (5' 4 ) 08/30/2022 11:05 AM ASIC DESIGN ENGINEER Body Mass Index 28.67 08/30/2022 11:05 AM ASIC DESIGN ENGINEER Plan of Treatment Health Maintenance Due Date Last Done Comments Diabetic Foot Exam 12/01/1949 Ophthalmology Exam 12/01/1950 COVID-19 Vaccine (2022-10 4 season) 2024 11/28/2020, 10/31/2020, 10/24/2019 Influenza Vaccine (#1) 2024 , 06/13/2019, 07/02/2014, Additional history exists Pneumococcal PPSV23/PCV13 65 + Years / High and Highest Risk Completed 09/20/2014, 06/12/2014 Care Teams Furniture Fabricator Relationship Specialty Start Date End Date Clayton Angulo MD [address] [id number] PCP - General Internal Medicine 02/26/19
--- OUTSIDE RECORDS SUMMARY | 2024-10-23 19:03 | XMS_ITS | Patient Health Summary ---
Author Organization [facility] Address [address] [facility] [place] [address] Care Team Providers Care Rubber Mill Operator Name Role Phone Clayton Angulo MD Primary Care Provider [phone] Note from [facility],non-owned Affiliates and Associated Physician Practices is amultiple site organization consisting of ambulatory clinics and hospital sitesin [place], [place], [place] and [place]. This disclosure is being madepursuant to the Care Everywhere program and may not contain all information available regarding this patient. Last updated 18.[facility] Immunizations * INFLUENZA VACCINE, HIGH-DOSE, QUADR. (FLUZONE HIGH-DOSE QUADRIVALENT; 65Y+), 0.7 ML (HD-IIV4)(Given 06/19/2020) Social History Tobacco Use Types Packs/Day Years Used Date Smoking Tobacco: Never Assessed Sex and Gender Information Value Date Recorded Sex Assigned at Not on file Gender Identity Not on file Sexual Orientation Not on file Care Teams Rubber Mill Operator Relationship Specialty Start Date End Date Clayton Angulo MD [address] [place] [phone] PCP - General 11/28/20
--- OUTSIDE RECORDS SUMMARY | 2024-10-23 19:03 | XMS_ITS | Clinical Summary ---
Author Organization [facility] Address [address] [facility] [address] [place] [address] Phone Care Team Providers Care Laboratory Associate Name Role Phone Clayton Angulo MD Primary Care Provider [phone] Allergies Active Allergy Reactions Criticality Noted Date Comments Penicillins Rash,Itching 05/20/2016 Medications ranitidine (ZANTAC) 300 MG Tablet Take 300 mg by mouth nightly. Active METOPROLOL-HCTZ 100-25 MG Tablet Take by mouth 2 times daily. Active dicyclomine (BENTYL) 10 MG Capsule Take by mouth 3 times daily as needed. Active digoxin (LANOXIN) 125 MCG Tablet Take by mouth daily. Active metolazone (ZAROXOLYN) 2.5 MG Tablet Take by mouth daily. Active Pitavastatin Calcium (LIVALO) 2 MG Tablet Take by mouth daily. Active furosemide (LASIX) 40 MG Tablet Take by mouth 2 times daily. Active metFORMIN (GLUCOPHAGE) 500 MG Tablet Take by mouth 2 times daily. Active Probiotic Product (ALIGN) 4 MG Capsule Take by mouth daily. Active omeprazole (PRILOSEC) 40 MG CAPSULE DELAYED RELEASE Take 1 Cap by mouth daily. 60 Cap 3 05/20/2016 Active ondansetron (ZOFRAN ODT) 4 MG TABLET DISPERSIBLE Take 1 Tab by mouth every 8 hours as needed for Nausea. 10 Tab 0 05/20/2016 Active ondansetron (ZOFRAN ODT) 4 MG TABLET DISPERSIBLE Take 1 Tab by mouth every 8 hours as needed for Nausea - 1st line. 20 Tab 1 05/16/2018 Active Active Problems Problem Noted Date Diagnosed Date Irritable bowel syndrome without diarrhea 2015 Chronic abdominal pain 05/20/2016 Gastroesophageal reflux disease 05/20/2016 Dyspepsia Family History Medical History Relation Name Comments Kidney Stones Brother Lung Cancer Father Stroke Maternal Grandfather Heart Attack Paternal Grandfather Relation Name Status Comments Brother Father Maternal Grandfather Paternal Grandfather Social History Tobacco Use Types Packs/Day Years Used Date Smoking Tobacco: Never Alcohol Use Standard Drinks/Week Comments No 0 (1 standard drink = 0.6 oz pur e alcohol) Comments No Sex and Gender Information Value Date Recorded Sex Assigned at Not on file Legal Sex Female 12:34 AM CDT Gender Identity Not on file Sexual Orientation Not on file Last Filed Vital Signs Vital Sign Reading Time Taken Comments Blood Pressure 118/68 05/20/2016 1:46 PM CDT Pulse 82 05/20/2016 1:46 PM CDT Temperature 36.7 C (98.1 F) 05/20/2016 1:46 PM CDT Respiratory Rate 20 05/20/2016 1:46 PM CDT Oxygen Saturation 98% 05/20/2016 1:46 PM CDT Inhaled Oxygen Concentration - - Weight 88 kg (194 lb 1.6 oz) 05/20/2016 1:46 PM CDT Height 162.6 cm (5' 4 ) 05/20/2016 1:46 PM CDT Body Mass Index 33.32 05/20/2016 1:46 PM CDT Plan of Treatment Health Maintenance Due Date Last Done Comments DEXA Bone Density 1940 Hepatitis C Virus (HCV) Screening 1940 TdaP Immunization 1940 Pneumococcal Immunization (50+ years) (1 of 1 - PCV) 12/01/1989 09/12/2013 Zoster Immunization (1 of 2) 12/01/1989 Respiratory Syncytial Virus (RSV) Immunization (Adult) (1 - 1-dose 75+ series) 12/01/2014 Influenza Immunization (#1) 05/13/[address] 04/2020, 07/16/2019, 09/12/2015, Additional history exists SARS-COV-2 Immunization ( season) 2024 09/24/2021, 11/28/2020, 10/31/2020 Pneumococcal Immunization Combined Discontinued 09/12/2013 Hepatitis B Immunization Aged Out No longer eligible based on patient's age to complete this topic Meningococcal Immunization (ACWY) Aged Out No longer eligible based on patient's age to complete this topic Rotavirus Immunization Aged Out No lo nger eligible based on patient's age to complete this topic Insurance MEDICARE [employer] GENERIC Care Teams Laboratory Associate Relationship Specialty Start Date End Date Clayton Angulo MD [address] [facility] [address] [place] [address] PCP - General Internal Medicine 05/19/16
--- OUTSIDE RECORDS SUMMARY | 2024-10-23 19:03 | XMS_ITS | CONTINUITY OF CARE DOCUMENT ---
Author Name madonna peacock Address Unknown Organization [facility] Address [address] [place] [address] Phone [phone] Care Team Providers Care Open Shank Coverer Name Role Phone Jaime WILSON, Fortino Unavailable Fortino Sandoval MD Unavailable [phone] MARGOTH WINTER MD Unavailable [phone] INSURANCE PROVIDERS Payer name Policy type / Coverage type [place] red democrat ID [employer] insurance company [id number] [place] [employer] Medicare [id number]
--- OUTSIDE RECORDS SUMMARY | 2024-10-23 19:03 | XMS_ITS | Continuity of Care Document ---
Author Name [facility] Organization [facility] Care Team Providers Care Assisted Living Manager Name Role Phone [facility] Unavailable Unavailable Problems Combined list of problems from Department of [facility] facilities. It does not include entries that were removed or entered in error. Problem Status Onset Date Problem Type Date of Resolution Comments Source Diagnosis: ICD-10-CM Z74.1 Need for assistance with personal care Active Diagnosis [facility] Diagnosis: ICD-10-CM Z65.9 Problem related to unspecified psychosocial circumstances Active Diagnosis [facility] Diagnosis: ICD-10-CM Z63.79 Other stressful life events affecting family and household Active Diagnosis [facility] Diagnosis: ICD-10-CM Z63.6 Dependent relative needing care at home Active Diagnosis [facility] Encounters Combined list of: 1) Encounters from [facility] facilities going backup to the last 18 months, not all [place] inpatient encounters are included; 2) Encounters from the [facility] facilities going backup to 280 months. Location Location Details Encounter Type Encounter Number Reason For Visit Attending Provider ADM Date DC Date Status Disposition Source [facility] Outpatient Encounter [id number] 05/02 [facility] CASE MANAGEMENT [id number] Diagnos is: ICD-10- CM Z74.1 Need for assista nce with URVASHI Mendes 05/03 [facility] Outpatient Encounter [id number] 08/18 [facility] [id number] Diagnos is: ICD-10- CM Z63.6 Depende nt relativ e needing care at home RANI WEBB CY L 08/22 [facility] Outpatient Encounter [id number] 12/22 [facility] PROGRAM INTAKE ASSESSMENT [id number] Diagnos is: ICD-10- CM Z74.1 Need for assista nce with persona l jorge URVASHI FULLER DINO 01/02 [facility] HC PRO PHONE CALL 11-20 MIN [id number] Diagnos is: ICD-10- CM Z63.79 Other stressf ul life events affecti ng family and househo ld JAMES LOVETT 01/08 [facility] Outpatient Encounter [id number] 01/18 [facility] PROGRAM INTAKE ASSESSMENT [id number] Diagnos is: ICD-10- CM Z74.1 Need for assista nce with persona misa URVASHI Kelly DINO 05/04 [facility] Outpatient Encounter [id number] JOHN,CAR A A 07/25 [facility] ASSMT/REAS SESSMENT [id number] Diagnos is: ICD-10- CM Z65.9 Problem related to unspeci fied psychos ocial circums tances TRACEYRANI CY L 08/20 [facility] PROGRAM INTAKE ASSESSMENT [id number] Diagnos is: ICD-10- CM Z74.1 Need for assista nce with persona URVASHI Rodriguez 09/24 [facility] NADIYA Laguerre [facility] Outpatient Encounter [id number] RANI WEBB 10/08 [facility]
--- OUTSIDE RECORDS SUMMARY | 2024-10-23 19:03 | XMS_ITS | Clinical Summary ---
Author Organization [facility] Address [facility] [place] [address] Care Team Providers Care Community Resource Officer Name Role Phone Unavailable Primary Care Provider Unavailabl e Social History Tobacco Use Types Packs/Day Years Used Date Smoking Tobacco: Never Assessed Comments Unknown Sex and Gender Information Value Date Recorded Sex Assigned at Not on file Legal Sex Female 1:41 PM CDT Gender Identity Not on file Sexual Orientation Not on file Plan of Treatment Health Maintenance Due Date Last Done Comments PHQ-2 (Physician [facility]on) 1952 DTaP, Tdap and Td Vaccines ( 1 - Tdap) 12/01/1958 Zoster Vaccines (1 of 2) 12/01/1989 Annual Medicare Wellness Visit 12/01/2004 Dexa Scan (General) 12/01/2004 Pneumococcal Vaccine: 65+ Ye ars (1 of 1 - PCV) 12/01/2004 RSV Immunization or 60+ Years (1 - 1-dose 75+ series) 12/01/2014 COVID-19 Vaccine (2023-2 5 season) 2024 Influenza Adult (#1) 2024 PHQ-2 (Physician Tyche) 09/12/2024 Meningococcal B Vaccine Aged Out No l onger eligible based on patient's age to complete this topic Meningococcal Vaccine Aged Out No jake fartun eligible based on patient's age to complete this topic RSV Immunizations Under 20 Months Aged Out No longer eligible based on patient's age to complete this topic Insurance MEDICARE GENERIC - COMMERCIAL on file
--- OUTSIDE RECORDS SUMMARY | 2024-10-23 19:03 | XMS_ITS | Clinical Summary ---
Author Organization [facility] Address [address] [facility] [place] [address] Care Team Providers Care Cover Operator Name Role Phone Clayton Angulo MD Primary Care Provider [phone] Source Comments [facility],non-owned Affiliates and Associated Physician Practices is amultiple site organization consisting of ambulatory clinics and hospital sitesin [place], [place], [place] and [place]. This disclosure is being madepursuant to the Care Everywhere program and may not contain all information available regarding this patient. Last updated 18.[facility] Immunizations Name Administration Dates Next Due INFLUENZA [...] Health Maintenance Due Date Last Done Comments BONE DENSITY TESTING 1940 MEDICARE AWV 12 MONTHS 1940 DTAP/TDAP/TD VACCINES (1 - Tdap) 12/01/1958 PNEUMOCOCCAL VACCINE 50+ (1 of 1 - PCV) 12/01/1989 ZOSTER VACCINE (1 of 2) 12/01/1989 Respiratory Syncytial Virus (RSV) Vaccine Pt: or over 60 yrs (1 - 1-dose 75+ series) 12/01/2014 COVID-19 VACCINE (1 - 2023- season) 2024 INFLUENZA VACCINE (#1) 2024 0, 06/13/2019, 06/20/2018, Additional history exists DEPRESSION SCREENING 09/12/2024 HEPATITIS B VACCINE Aged Out No longe r eligible based on patient's age to complete this topic HIB VACCINE Aged Out No longer eligi ble based on patient's age to complete this topic HPV VACCINE Aged Out No longer eligi ble based on patient's age to complete this topic MENINGOCOCCAL (Group B) VACCINE Aged Out No longer eligible based on patient's age to complete this topic MENINGOCOCCAL VACCINE Aged Out No jake fartun eligible based on patient's age to complete this topic Care Teams Cover Operator Relationship Specialty Start Date End Date Clayton Angulo MD [address] [place] [address] [address] [place] [address] PCP - General 11/28/20
--- NOTE | 2024-10-23 19:07 | PC.NURSE ---
Pt arrived to ED with IGEL placed by EMS. Dr. Bynum and RT at bedside at 1850. EMS states pt's BG was 53, pt arrived with 10% Dextrose. 1852 V/S HR80 R24 100% 176/116 1854 20 Etomidate IVP given followed by 100 Rocuronium 1854 pt was intubated by Dr. Bynum 1856 V/S HR87 R12 100% 122/67 1858 xray notified, temp wheeler inserted, NG @74 1900 V/S HR91 R20 100% 128/73 1902 Soft wrist and ankle restraints applied to pt
--- NOTE | 2024-10-23 19:08 | ECG_ITS ---
Test Date: 2024-10-23 19:55:23 Measurements Intervals [place] Rate: 84 P: 65 [place]: 172 QRS: 19 QRSD: 106 T: 104 QT: 414 QTc: 491 Interpretive Statements SINUS RHYTHM WITH OCCASIONAL VENTRICULAR PREMATURE COMPLEXES NONSPECIFIC ST & T-WAVE ABNORMALITY- LAT/HIGH LAT LEADS BASELINE ARTIFACT- V3-V5 BORDERLINE ECG No previous ECG available for comparison Electronically Signed On 10-23-2024 20:03:01 SECURITIES SUPERVISOR by Darryl Cline D.O.
[2024-10-23 19:15] VITALS: PULSE 83; O2SAT 100
[2024-10-23 19:21] LABS: Basophils Percent Auto 0.4 % (0.2-1.2); Eosinophils Percent Auto 0.4 % (0-4.4); Hematocrit 37.5 % (37.0-47.0); Hemoglobin 12.2 g/dL (12.0-15.0); Immature Granulocyte Absolute 0.07 K/mm3 (0.00-0.031); Immature Granulocyte Percent A 0.8 % (0-0.5); Lymphocytes Absolute Auto 1.22 K/mm3 (0.9-3.2); Lymphocytes Percent Auto 14.4 % (18.3-44.2); Mean Corpuscular HGB Conc 32.5 g/dl (32-36); Mean Corpuscular Hemoglobin 30.4 pg (26-34); Mean Corpuscular Volume 93.5 fl (80-100); Mean Platelet Volume 10.8 fl (7.4-10.4); Monocytes Absolute Auto 0.2 K/mm3 (0.1-0.6); Monocytes Percent Auto 2.1 % (2.6-8.5); Neutrophils Absolute Auto 6.9 K/mm3 (1.3-6.7); Neutrophils Percent Auto 81.9 % (45.5-73.1); Platelet Count Result 275 k/mm3 (150-375); Red Blood Count 4.01 M/mm3 (4.2-5.4); Red Cell Distribution Width 13.4 % (11.5-14.5); White Blood Count 8.5 K/mm3 (4.5-10.0)
[2024-10-23 19:21] LABS: Glucose Point of Care 116 mg/dl (65-105)
[2024-10-23 19:25] LABS: Add Urine Microscopic? YES; Appearance Urine Clear (Clear); Bacteria Urine None Seen /hpf; Bilirubin Urine Negative (Negative); Blood Urine Negative (Negative); Color Urine Yellow (Yellow); Glucose Urine UA Negative (Negative); Ketones Urine Negative (Negative); Leukocyte Esterase Ur Trace LEU/UL (Negative); Nitrate Urine Negative (Negative); Protein Urine 3+ mg/dL (Negative); RBC Urine 0-2 /hpf (0-2); Specific Grav Ur 1.011 (1.001-1.035); Squamous Epithelial Cell Urine None Seen /hpf (Few); Urobilinogen Urine 0.2 mg/dL (<2.0); WBC Urine 0-5 /hpf (0-3); pH Urine 5.5 (5.0-9.0)
--- NOTE | 2024-10-23 19:26 | ED.GENADULT ---
HPI - General Adult General Chief complaint: Unspecified Stated complaint: Respiratory failure History of Present Illness HPI narrative: 83-year-old female with a history of CKD, COPD, CHF, asthma, hypertension and diabetes. She presents in respiratory distress and EMS was called to find the patient obtunded with a GCS of 3 at home. Last known well was just several minutes prior to that as she was talking and had family members in the household. Patient was initially intubated however the tube dislodged in route and a supraglottic airway had to be placed. Patient had a pulse the entire time and no CPR efforts were needed or started. She presents currently with a supraglottic airway and made a medical resuscitation and brought back to room 4 for evaluation and treatment emergently. Collateral information is provided by EMS but limited his family is not present at bedside. Code status is full code as far as we are aware. No reported respiratory distress or any pain prior to sudden collapse that was unwitnessed. Patient did receive etomidate but no paralytics while attempting to get airway managed at the household. Related Data Home Medications ?Medication ?Instructions ?Recorded ?Confirmed ?Last Taken ?Type atorvastatin 40 mg tablet 40 mg PO DAILY 09/25/20 01/22/24 1 Day Ago History ~01/21/24 metoprolol tartrate 100 mg tablet 100 mg PO DAILY 01/22/24 01/22/24 1 Day Ago History ~01/21/24 Allergies Allergy/AdvReac Type Severity Reaction Status Date / Time atorvastatin (From Lipitor) Allergy Mild myalgia Verified 04/20/24 12:36 fluvastatin (From Lescol) Allergy Mild Unknown Verified 04/20/24 12:36 pravastatin (From Pravachol) Allergy Mild Unknown Verified 04/20/24 12:36 rosuvastatin (From Crestor) Allergy Mild myalgia Verified 04/20/24 12:36 Penicillins Allergy Unknown Unknown Verified 04/20/24 12:36 IV CONTRAST DYE Allergy Mild CKD Uncoded 04/20/24 12:36 Review of Systems Review of Systems: As reviewed above in HPI ROS unobtainable: Yes unobtainable due to medical condition and unobtainable due to mental status PMFSH Past Medical History Medical History Anemia Unintentional weight loss Osteitis pubis Asthma-COPD overlap syndrome Hemoglobin A1c less than 7.0% per pt A1c was 6.7 around Sep 2020 Adenomatous colon polyp Lower abdominal pain Epigastric pain Sleep apnea, unspecified Essential hypertension Type 2 diabetes mellitus Congestive heart failure Ventral incisional hernia Disorder of vitamin B12 Edema Pure hypercholesterolemia Allergic rhinitis GERD (gastroesophageal reflux disease) Asthma Indigestion Contusion of lower leg Gout Fracture of humerus Disorder of rotator cuff Brachial neuritis Neck pain Pain, joint, ankle and foot Shoulder joint pain 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 Generalized osteoarthritis of multiple sites Seronegative spondyloarthropathy (~2016) Surgical History Surgical History History of left cataract extraction History of right cataract extraction Family History Family History Mother Hypertension Unknown Family history of stroke Other Diabetes mellitus Family history of allergic disorder Family history of cardiovascular disease Family history of sleep apnea Social History Social History Smoking status: Never smoker Second hand tobacco smoke exposure: No (PREVIOUSLY, STOPPED SMOKING YEARS AGO) Alcohol intake: never Substance use: never Substance use type: does not use Do You Feel Safe in your Home?: Yes Lack of Transportation: No Lack of Food: Never True Current Housing: I Have Housing Concerned About Future Housing: No Difficulty Paying Gas/Electric Bills: No Difficulty Paying for Meds: No Currently Unemployed: No Education: High School Diploma/GED Difficulty w/ Childcare or Family Care: No Living arrangements: with family Occupation/Education: retired Gender identity (if verbalized by the patient): Female Sexual Orientation (if Verbalized by the Patient): Straight or Heterosexual Spiritual care concerns: No Exam Narrative: GENERAL: Supraglottic airway, GCS 3, HEAD: [Normocephalic, atraumatic.] EYES: Pupils are 3 mm and reactive ENT: Moist mucous membranes, protruding tongue but no signs of trismus or difficulty ranging the mouth NECK: Supple. CHEST: Coarse bilateral breath sounds, no wheezing, easy to BVM HEART: [Regular rate and rhythm]. No murmur heard. [Normal peripheral pulses.] ABDOMEN: Distended but soft, [nontender], [No rigidity or guarding] EXTREMITIES: Normal range of motion. [No edema.] Right-sided tibial IO in place SKIN: Warm, dry, no rash. NEURO: GCS 3 Course Vital Signs Vital signs: Vital Signs Pulse Rate 80 10/23/24 18:52 Respiratory Rate 24 H 10/23/24 18:52 Blood Pressure 176/116 H 10/23/24 18:52 Pulse Oximetry 100 10/23/24 18:52 Pulse Rate 87 10/23/24 21:20 Respiratory Rate 12 10/23/24 18:56 Blood Pressure 122/67 10/23/24 18:56 Pulse Oximetry 100 10/23/24 21:20 Oxygen Delivery Mechanical Ventilation 10/23/24 21:20 Fraction of Inspired Oxygen 40 10/23/24 21:20 Procedures Intubation Intubation #1: Intubation Date: 10/23/24 Intubation Time: 19:15 Time out performed: Yes sedative: Etomidate Mg Given: 20 paralytic: Rocuronium Mg Given: 100 Laryngoscope: fiber optic video scope Tube Size (cm): 7.5 Method of Intubation: orotracheal Number of Attempts: 1 Tube Secured Depth (cm): 23 Tube Secured Location: lips Tube Placement Confirmation: visualized tube passing through cords, equal breath sounds bilaterally, no breath sounds over epigastrium and confirmation by capnometry Patient Tolerated Procedure: well and no complications Intubation Complications: none Medical Decision Making MDM Narrative Medical decision making narrative: 83-year-old female with chronic comorbidities including COPD, asthma, CHF, hypertension and diabetes. Previous CVA. She presents obtunded with a GCS of 3 and was attempted to be intubated in field. Did have a failure of the intubation as supraglottic airway was placed via EMS. Patient was brought to room number 4 with respiratory therapy at bedside. Patient was placed on electronic device monitor and resuscitation pads. Patient had a blood pressure 176/116, good pulse, breathing through BVM and supraglottic airway, saturating 100%. Supraglottic airway was exchanged with endotracheal intubation on 1st pass success, nasogastric tube placed successfully, subtle low intermittent suction. Patient received etomidate and rocuronium for assistance in procedures. Given her mental status and limited history considerations presently for a catastrophic intracranial process, intrathoracic process such as aortic dissection, pulmonary embolism, COPD or CHF exacerbation causing respiratory arrest is less likely given the short timeline of events between last known well and present. Patient does have a distended abdomen however seems to be component of insufflation from supraglottic airway with BVM respirations in route. CT of the head was obtained, CT of the chest abdomen pelvis with angiography phase ordered. Laboratory studies were obtained she was given a L of fluid. EMS reported a low glucose of 53, D10 drip was given by EMS. Respiratory was able to obtain an ABG and sent for analysis. Ventilator settings of 20, 350, 100 %, peep 5 and will be titrated based on ABG. Workup shows no leukocytosis or anemia. Normal platelet level. Coag studies within normal limits. ABG shows a pH 7.33, pCO2 of 33.9, hypoxia 553, bicarb of 17.5. Titrated on the vent to have decreased oxygen. Chemistry panel shows normal electrolytes, BUN and creatinine reflective of an SOLOMON on CKD, anion gap elevated secondary to lactic acidosis. Lactic acid 3.7. Normal glucose, normal LFTs. Negative troponin, BNP elevated 1470. Urinalysis without signs of infection. Urine drug screen with some positive benzos and cannabinoids. Benzos likely secondary to EMS administration for intubation attempts. Viral panel pending. CT that shows no acute intracranial or suspicious mass effect. CTA shows no acute intra-abdominal findings, mural thickening edema of the gastric cecum. Endotracheal tube is at the chikis OG tube needs repositioning. Both which were withdrawn and respiratory therapy with through 2 cm on the endotracheal tube and nurse with through 10 cm on the nasogastric tube now placed at 65 cm at the tip of the nose. Repeat x-ray obtained. Has spoke at length with multiple family members at bedside and made them aware patient's presentation, they confirmed that she was otherwise in her normal state of health earlier in the afternoon today, had a brief period where she was left alone on the couch in her room and then found several hours later not responding, seemingly had some drool on her face and not breathing appropriately. She was found in bed and had no visible evidence of trauma or falls. I spoke to the play back operator Dr. Sánchez admitted more patient's presentations, recommendations for broad-spectrum antibiosis at this time including vancomycin cefepime an MRI imaging of the brain. Accepted to the ICU. I spoke to the hospitalist currently being covered by Dr. Prieto also accepted the patient to admit to the hospital. Orders were placed, patient has been in the ED for 3-1/2 hours without any sedation medications. Will order p.r.n. Versed if she becomes awake or agitated but presently she has not woken up. Family members made aware of this. Medical Records Medical records reviewed: Yes I reviewed the external patient's medical records. Vital Signs Vital Signs: Vital Signs Pulse Rate 80 10/23/24 18:52 Respiratory Rate 24 H 10/23/24 18:52 Blood Pressure 176/116 H 10/23/24 18:52 Pulse Oximetry 100 10/23/24 18:52 Pulse Rate 87 10/23/24 21:20 Respiratory Rate 12 10/23/24 18:56 Blood Pressure 122/67 10/23/24 18:56 Pulse Oximetry 100 10/23/24 21:20 Oxygen Delivery Mechanical Ventilation 10/23/24 21:20 Fraction of Inspired Oxygen 40 10/23/24 21:20 Lab Data Lab results reviewed: Yes I reviewed the patient's lab results. 10/23/24 19:13 10/23/24 19:13 Labs: Lab Results 10/23/24 10/23/24 10/23/24 Range/Units 19:05 19:13 22:18 WBC 8.5 (4.5-10.0) K/mm3 RBC 4.01 L (4.2-5.4) M/mm3 Hgb 12.2 (12.0-15.0) g/dL Hct 37.5 (37.0-47.0) % MCV 93.5 (80-100) fl MCH 30.4 (26-34) pg MCHC 32.5 (32-36) g/dl RDW 13.4 (11.5-14.5) % Plt Count 275 (150-375) k/mm3 MPV 10.8 H (7.4-10.4) fl Immature Gran % (Auto) 0.8 H (0-0.5) % Neut % (Auto) 81.9 H (45.5-73.1) % Lymph % (Auto) 14.4 L (18.3-44.2) % [place] % (Auto) 2.1 L (2.6-8.5) % Eos % (Auto) 0.4 (0-4.4) % Baso % (Auto) 0.4 (0.2-1.2) % Lymph # (Auto) 1.22 (0.9-3.2) K/mm3 [place] # (Auto) 0.2 (0.1-0.6) K/mm3 Eos # (Auto) 0.0 (0-0.3) K/mm3 Baso # (Auto) 0.0 (0.0-0.1) K/mm3 Abs Immat Gran (auto) 0.07 H (0.00-0.031) K/mm3 Absolute Neuts (auto) 6.9 H (1.3-6.7) K/mm3 Absolute Nucleated RBC 0.000 (0.0-0.012) K/mm3 Nucleated RBC % 0.0 (0.0-0.2) % PT 14.0 (11.1-14.7) Seconds INR 1.1 APTT 32.1 (22.3-36.8) Seconds Methemoglobin 0.3 (0-1.5) %THb Minute Volume Not Reportable Vent Mode Cmv Tidal Volume 350 ml PEEP 5 cmH2O Peak Inspir Pressure Not Reportable Pressure Support Not Reportable Sodium 143 (137-145) mmol/L Potassium 4.3 (3.4-5.0) mmol/L Chloride 103 (98-107) mmol/L Carbon Dioxide 22 (22-30) mmol/L Anion Gap 18 H (4-12) mmol/L BUN 53 H D (7-17) mg/dL Creatinine 2.52 H (0.7-1.0) mg/dL Estim Creat Clear Calc Not Reportable Estimated GFR 22 L (59 - ) Glucose 73 (65-110) mg/dL POC Capillary Glucose 116 H (65-105) mg/dl Lactic Acid 3.7 H (0.7-2.0) mmol/L Calcium 9.1 (8.4-10.2) mg/dL Magnesium 2.1 (1.6-2.3) mg/dL Total Bilirubin 0.5 (0.2-1.3) mg/dL AST 25 (14-36) U/L ALT 18 (6-35) U/L Alkaline Phosphatase 99 (38-126) U/L Troponin I < 0.012 (0.000-0.034) ng/mL NT-Pro-B Natriuret Pep 1470 H (19.9-100) pg/mL Total Protein 8.0 (6.3-8.2) g/dL Albumin 4.4 (3.5-5.1) g/dL Urine Color Yellow (Yellow) Urine Appearance Clear (Clear) Urine pH 5.5 (5.0-9.0) Ur Specific [place]ie 1.011 (1.001-1.035) Urine Protein 3+ H (Negative) mg/dL Urine Glucose (UA) Negative (Negative) mg/dL Urine Ketones Negative (Negative) mg/dL Ur Blood (Man) Negative (Negative) Urine Nitrate Negative (Negative) Urine Bilirubin Negative (Negative) Urine Urobilinogen 0.2 (<2.0) mg/dL Leukocyte Esterase Rfl Trace H (Negative) JOI/UL Urine RBC 0-2 (0-2) /hpf Urine WBC 0-5 (0-3) /hpf Ur Squamous Epith Cells None seen (Few) /hpf Urine Bacteria None seen /hpf Urine Casts 3-5 Salicylates Pending Urine Opiates Screen Negative (Negative) Urine Methadone Screen Negative (Negative) Acetaminophen Pending Ur Barbiturates Screen Negative (Negative) Ur Phencyclidine Scrn Negative (Negative) Ur Amphetamine Screen Negative (Negative) U Benzodiazepines Scrn Positive A (Negative) Urine Cocaine Screen Negative (Negative) U Cannabinoids Screen Positive A (Negative) Influenza A (RT-PCR) Pending Influenza B (RT-PCR) Pending RSV (RT-PCR) Pending SARS-CoV-2 RNA (RT-PCR) Pending ABG Data ABG results: 10/23/24 19:13 Puncture Site Right radial ABG pH 7.331 L ABG pCO2 33.9 L ABG pO2 553.9 H ABG PO2/FiO2 Ratio 5.54 ABG HCO3 17.5 L ABG O2 Saturation 99.9 ABG O2 Content 17.6 ABG Base Excess -7.5 A-a Gradient 125.2 Oxyhemoglobin 99.3 Carboxyhemoglobin 0.3 Reduced Hemoglobin 0.1 Total Hemoglobin 11.5 L O2 Delivery Device Ventilator O2 Liters/Min Not Reportable Vent Rate 20 FiO2 100 Attestation: I personally reviewed and interpreted this ABG as follows: Interpretation: Hyperoxia, no significant acidosis, low bicarb Imaging Data Attestation: I personally reviewed and interpreted this imaging study as follows: My impression: Impressions Abdomen X-Ray 10/23/24 19:29 IMPRESSION: Mild pulmonary vascular congestion without focal infiltrate. Endotracheal tube positioning on supine radiograph is likely distorted by patient's kyphosis. Withdrawal of approximately 9 cm of the orogastric tube is suggested for optimal radiographic placement. Chest X-Ray 10/23/24 19:29 IMPRESSION: Mild pulmonary vascular congestion without focal infiltrate. Endotracheal tube positioning on supine radiograph is likely distorted by patient's kyphosis. Withdrawal of approximately 9 cm of the orogastric tube is suggested for optimal radiographic placement. Head CT 10/23/24 21:39 Impression: No acute intracranial hemorrhage or suspicious mass effect. Chest/Abdomen/Pelvis CTA 10/23/24 21:44 IMPRESSION: No acute intra-abdominal findings to explain patient's presentation. Mural thickening and edema within the gastric cardia and cecum. Endotracheal tube tip is at the level of the chikis for which withdrawal of approximately 2 cm is suggested for optimal placement. Orogastric tube extends to the second portion of the duodenum, and tenting of the wall is demonstrated. Withdrawal of approximately 9 to 10 cm is recommended for optimal placement and to decrease the risk of perforation. Critical Care Time Critical Care Time Critical Care Time: Yes Total Critical Care Time: 120 (Critical care time is separate from any of the separately billed procedures above) Discharge Plan Discharge Clinical Impression: Respiratory failure requiring intubation, Acidosis, lactic, History of CVA (cerebrovascular accident) Altered mental status Qualifiers: Altered mental status type: unspecified Qualified Code(s): R41.82 - Altered mental status, unspecified Patient Disposition: Still a Patient Condition: Serious Patient Language: Belarusian Prescriptions: No Action atorvastatin 40 mg tablet 40 mg PO DAILY Jardiance 10 mg tablet 10 mg PO DAILY Qty: 30 12RF metoprolol tartrate 100 mg tablet 100 mg PO DAILY cefdinir 300 mg capsule 300 mg PO DAILY Qty: 4 0RF nifedipine 90 mg tablet extended release 90 mg PO DAILY Qty: 90 3RF hydralazine 50 mg tablet See Rx Instructions .ROUTE .COMPLEX Qty: 270 3RF Dose Instruction: TAKE 1 TABLET BY MOUTH 3 TIMES DAILY Rx Instructions: TAKE 1 TABLET BY MOUTH 3 TIMES DAILY chlorthalidone 25 mg tablet See Rx Instructions .ROUTE .COMPLEX Qty: 90 3RF Dose Instruction: TAKE 1 TABLET BY MOUTH DAILY Rx Instructions: TAKE 1 TABLET BY MOUTH DAILY Follow-up/Referrals: Kev,Clayton Paniagua MD [Primary Care Provider] - Time of Disposition: 22:33
[2024-10-23 19:28] LABS: Alveolar/Arterial O2 Gradient 125.2 mmHg; Base Excess ABG -7.5 mEq/l (+/-2.0); Carboxyhemoglobin 0.3 % THb (0-2.0); Fractional Inspired Oxygen 100 %; HCO3 ABG 17.5 mEq/l (22.0-26.0); Methemoglobin ABG 0.3 %THb (0-1.5); Oxygen Content ABG 17.6 %vol (16.0-22.0); Oxygen Saturation ABG 99.9 % (95.0-100.0); Oxyhemoglobin 99.3 % THb (90.0-100.0); PCO2 ABG 33.9 mmHg (35.0-45.0); PO2 ABG 553.9 mmHg (80.0-100.0); PO2 FiO2 Ratio Arterial Blood 5.54 %; Reduced Hemoglobin 0.1 %THb (0-5.0); Total Hemoglobin 11.5 g/dL (12.0-18.0); pH ABG 7.331 (7.350-7.450)
[2024-10-23 19:31] LABS: Lactic Acid Reflex 3.7 mmol/L (0.7-2.0)
[2024-10-23 19:32] LABS: Magnesium 2.1 mg/dL (1.6-2.3)
[2024-10-23 19:34] LABS: Device VENTILATOR; INR 1.1; Modified Allen's Test Pass; Site Drawn RIGHT RADIAL
[2024-10-23 19:35] LABS: Alanine Aminotransferase 18 U/L (6-35); Albumin Level 4.4 g/dL (3.5-5.1); Alkaline Phosphatase 99 U/L (38-126); Arterial Blood Gas PEEP 5 cmH2O; Arterial Blood Gas Tidal Volume 350 ml; Arterial Blood Gas Vent Mode CMV; Arterial Blood Gas Ventilator rate 20 /MIN; Aspartate Amino Transferase 25 U/L (14-36); Bilirubin,Total 0.5 mg/dL (0.2-1.3); Blood Urea Nitrogen 53 mg/dL (7-17); Calcium 9.1 mg/dL (8.4-10.2); Carbon Dioxide 22 mmol/L (22-30); Estimated Glomerular Filt Rate 22; Glucose 73 mg/dL (65-110); Partial Thromboplastin Time 32.1 Seconds (22.3-36.8)
[2024-10-23 19:38] LABS: Anion Gap 18 mmol/L (4-12); Chloride 103 mmol/L (98-107); Potassium 4.3 mmol/L (3.4-5.0); Sodium 143 mmol/L (137-145)
[2024-10-23 19:43] LABS: NT Pro B Type Natriuretic Pept 1470 pg/mL (19.9-100); Troponin I < 0.012 ng/mL (0.000-0.034)
[2024-10-23 19:49] LABS: Amphetamine Screen Urine Negative (Negative); Barbiturate Screen Urine Negative (Negative); Benzodiazepines Screen Urine Positive (Negative); Cannabinoid Screen Urine Positive (Negative); Cocaine Screen Urine Negative (Negative); Methadone Screen Urine Negative (Negative); Opiate Screen Urine Negative (Negative); Phencyclidine Screen Urine Negative (Negative)
[2024-10-23 21:20] VITALS: PULSE 87; O2SAT 100
[2024-10-23 22:19] LABS: Reflex Lactic Acid Yes or No Add Lactic
[2024-10-23 22:35] LABS: Acetaminophen < 10 ug/mL (10-30); Salicylate < 1.0 mg/dL (2-20)
[2024-10-23 22:59] LABS: Influenza A QL RT-PCR Negative (Negative); Influenza B QL RT-PCR Negative (Negative); RSV RNA, RT-PCR Negative (Negative); SARS-CoV-2 RNA PCR Negative (Negative)
--- NOTE | 2024-10-23 22:59 | PC.NURSE ---
og tube pulled out by [address] smith. xr notified for repeat xr.
[2024-10-23 23:08] LABS: Lactic Acid 4.7 mmol/L (0.7-2.0)
[2024-10-23] MEDS: SODIUM CHLORIDE 0.9% IV 1,000 ML 999 ML IV CONT (23:30)
[2024-10-23] MEDS: CEFEPIME 2 GM/NS 50 ML 2 GM/50 ML BAG IVPB (23:31)
[2024-10-23 23:43] VITALS: PULSE 81; O2SAT 100
[2024-10-24] VITALS (43 sets, daily range): BP systolic 83–137; BP diastolic 46–84; PULSE 62–99; RESP 18–24; TEMP 33.8–37.8; O2SAT 92–100; BMI 20.1; BMI 19.7
--- NOTE | 2024-10-24 | ECHO_ITS ---
Patient Info Name: Madyson Giraldo Age: 83 years : 1940 Gender: Female Ht: 66 in Wt: 122 lbs BSA: 1.60 m2 HR: 67 bpm BP: 96 / 48 mmHg Technical Quality: Good Exam Date: 10/24/2024 10:54 AM Exam Location: Echo Lab Exam Room: ICU 9 Patient Status: Inpatient Admit Date: 10/23/2024 Staff Ordering Physician: Max Sánchez MD Operator Specialist Communications: Sandee Guo RDCS Attending Provider: Caterina Prieto MD Referring Physician: Princess MELLO; Exam Type: CA echo doppler color flow Study Info Indications - H/O CHF Complete two-dimensional, color flow and Doppler transthoracic echocardiogram is performed. Summary 1. Complete two-dimensional, color flow and Doppler transthoracic echocardiogram is performed. 2. There is normal biventricular size and systolic function. 3. There is no significant valvular disease. 4. The atrial septum appears aneurysmal however there is no [id number] shunt by agitated saline study. Left Ventricle The left ventricle is normal in size and systolic function. The left ventricular graves are mildly thickened. The left ventricular ejection fraction is visually estimated to be 55-60%. Right Ventricle The right ventricle is normal in size and systolic function. Left Atria The left atrium is normal size. Right Atria The right atrium is normal size. Atrial Septum The atrial septum is aneurysmal. There is no evidence of pfgag-xk-wego shunt by agitated saline. Aortic Valve The aortic valve opens well. There is no echo Doppler evidence of hemodynamically significant aortic stenosis. There is no aortic regurgitation. Pulmonic Valve The pulmonic valve is not well visualized. There is color Doppler evidence of moderate pulmonic valve regurgitation. Mitral Valve The mitral valve is normal. There is no mitral regurgitation. Pericardium/Pleural Pericardium is normal in appearance with no evidence for significant pericardial effusion. Inferior Vena Cava Inferior vena cava is not well visualized. Aorta The aortic root at the level of the sinus of Valsalva measures 3.1 cm in diameter. Left Ventricular Outflow Tract Name Value Normal LVOT 2D LVOT Diameter 2.1 cm LVOT Doppler LVOT Peak Gradient 4 mmHg LVOT Mean Gradient 2 mmHg LVOT VTI 24 cm LVOT VTI/AV VTI Ratio 0.6 LVOT Stroke Volume 81 ml LVOT CO 5.1 l/min LVOT CI 3.2 l/min/m2 Pulmonic Valve Name Value Normal PV Doppler PV Peak Gradient 6 mmHg PV Regurgitation Doppler OR Peak End Diastolic Velocity 131 cm/s Mitral Valve Name Value Normal MV Doppler MV Peak Gradient 5 mmHg MV Mean Gradient 1 mmHg MV Decel Nelson 180 cm/s2 MV PHT 101 ms MV Area (PHT) 2.2 cm2 4.0-5.0 MV Area (Cont Eq VTI) 3.7 cm2 MV Regurgitation Doppler MR Peak Gradient 71 mmHg MV Diastolic Function MV E Peak Velocity 63 cm/s MV A Peak Velocity 105 cm/s MV E/A 0.6 MV Decel Time 348 ms MV Annular TDI MV E/e' (Septal) 16.7 <=8.0 MV E/e' (Lateral) 10.2 <=8.0 MV E/e' (Average) 13.4 Tricuspid Valve Name Value Normal TV Regurgitation Doppler TR Peak Velocity 391 cm/s TR Peak Gradient 57 mmHg Aortic Valve Name Value Normal AV Doppler AV Peak Velocity 147 cm/s AV Peak Gradient 9 mmHg AV Mean Gradient 5 mmHg AV VTI 37 cm AV Area (Cont Eq VTI) 2.2 cm2 >=3.0 AV Area (Cont Eq Arias) 2.4 cm2 AV Regurgitation 2D LVOT Area 3.4 cm2 Ventricles Name Value Normal LV Dimensions 2D/MM IVS Diastolic Thickness (2D) 1.3 cm 0.6-1.0 LVID Diastole (2D) 4.9 cm 3.8-5.2 LVIW Diastolic Thickness (2D) 1.1 cm 0.6-0.9 LVID Systole (2D) 3.5 cm 2.2-3.5 LVOT Diameter 2.1 cm LV Mass (2D Cubed) 220.32 g 67.00-162.00 LV Mass Index (2D Cubed) 138 g/m2 43-95 Relative Wall Thickness (2D) 0.45 LV Fractional Shortening/Ejection Fraction 2D/MM LV Fractional Shortening (2D) 26 % 27-45 LV EF (2D Teicholz) 51 % 54-74 LV Diastolic Volume (4C MOD) 134 ml LV EF (4C MOD) 71 % LV Diastolic Length (4C) 8.3 cm LV Systolic Length (4C) 6.9 cm LV Stroke Volume (4C MOD) 95 ml Atria Name Value Normal LA Dimensions LA Volume (4C A-L) 99 ml RA Dimensions RA Area (4C) 16.3 cm2 <=18.0 Report Signatures
[2024-10-24] MEDS: MIDAZOLAM 100MG/NS 100ML(*CRX) 100 MG/100 ML BAG IV CONT (00:46)
[2024-10-24] MEDS: FENTANYL 2,500MCG/NS250ML(*CRX 2,500 MCG/250 ML BAG IV CONT (00:46)
[2024-10-24] MEDS: LACTATED RINGERS 500 ML 100 ML IV CONT (00:47)
[2024-10-24] MEDS: VANCOMYCIN 750 MG/NS 250 ML 750 MG/250 ML BAG 250 MG IVPB (01:15)
--- NOTE | 2024-10-24 01:21 | ADMGEN ---
This patient, Madyson Giraldo, was admitted to Intensive Care Unit-9 at 0001. Patient/family oriented to hospital policies and general routines including ID bracelet, bed and alarms, visiting hours, pain management, procedures, bathroom and other care routines, personal items, smoking policy, room service/diet, and visiting hours. Information on how to activate the Rapid Response Team has been discussed. Patient/Family are encouraged to report perceived risks to care and to ask questions if they do not understand what they are told or what they should do.
--- NOTE | 2024-10-24 02:37 | PM.IMHP ---
H&P: HPI History of Present Illness Date/Time: 10/24/24 02:37 Chief Complaint: Acute respiratory failure Narrative: This is an 83-year-old female who presents to [facility] via EMS after she was found unresponsive at home. She carries an extensive history including CKD stage IV, prior CVA with residual gait imbalance, secondary hyperparathyroidism, obesity, osteoarthritis, gout, asthma/COPD, GERD, hypercholesterolemia, anemia, non-insulin dependent diabetes mellitus, sleep apnea, hypertension, history of UTI, dementia, CHF? History is taken from the son Camacho and relayed information from ER physician. The patient lives with her , the son Camacho is actively helping to take care of her. Reportedly the patient has been in her usual state of health, she has dementia and is only A&O times 1-2. On the day of arrival to the ER on 10/23/2024 the son (Camacho) had given the patient a CBD drink to help calm her anxiety. He obtained the CBD drink from a relative who owns multiple CBD shops in [place]. Camacho then left the house around noon. A caregiver left the house around 2:00 p.m. and that was her last known well time. Camacho returned to the house around 5:00 p.m. and he observed the patient laying at the edge of the bed with her feet up but leaning to the side appearing as if she had fallen asleep. This is where she hangs out often. Sometime later Camacho noticed the patient to have wet herself. He intended to clean her up after she woke up so he had repositioned her in bed and when she was laid flat on her back he noticed she had her tongue out and vomitus on the pillow. She appeared to be gasping for air. Camacho contacted 911 and they asked him to check a pulse. He reports he could not find a pulse but with the consideration he is not a medical professional and was in distress himself. He was told to start CPR. When EMS arrived she was of course obtunded. She was intubated with difficulty and the tube dislodged and a supraglottic airway was placed. Per EMS, a pulse was present. Reportedly she received etomidate and benzodiazepine. This was reported by ER physician however the EMS run sheet is scant and does not provide much useful information. Reportedly, she had a glucose of 53 in the field and was started on a D10 drip. On arrival patient had a blood pressure of 176/116 and saturating 100% through a supraglottic airway. It was exchanged with an ET tube and an NG tube was placed. Received etomidate and rocuronium on this occasion. She was given a L of fluid. Imaging was obtained. WBC 8.5, hemoglobin 12.2, ABG demonstrated pH is 7.3 and pCO2 of 34, bicarb 17.5, BUN 53, serum creatinine 2.52, serum glucose 116, lactic acid 3.7, troponin 0.012, BNP 1470, UA with positive protein and trace leukocyte esterase. Urine drug screen positive for benzodiazepines and cannabinoids. Salicylate and acetaminophen negative. Quad viral screen negative. CTA chest abdomen pelvis negative for PE. Right basilar atelectasis. Mural thickening and edema within the gastric cardia and cecum. Head CT without acute findings. Patient was started on cefepime and vancomycin. Assistant Inventory Manager consulted from the ER. Review of Systems Review of Systems: ROS unobtainable: Yes unobtainable due to endotracheal tube, unobtainable due to medical condition and unobtainable due to mental status PMFSH Past Medical History Medical History Anemia Unintentional weight loss Osteitis pubis Asthma-COPD overlap syndrome Hemoglobin A1c less than 7.0% per pt A1c was 6.7 around Sep 2020 Adenomatous colon polyp Lower abdominal pain Epigastric pain Sleep apnea, unspecified Essential hypertension Type 2 diabetes mellitus Congestive heart failure Ventral incisional hernia Disorder of vitamin B12 Edema Pure hypercholesterolemia Allergic rhinitis GERD (gastroesophageal reflux disease) Asthma Indigestion Contusion of lower leg Gout Fracture of humerus Disorder of rotator cuff Brachial neuritis Neck pain Pain, joint, ankle and foot Shoulder joint pain 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 Generalized osteoarthritis of multiple sites Seronegative spondyloarthropathy (~2016) Surgical History Surgical History History of left cataract extraction History of right cataract extraction Family History Family History Mother Hypertension Unknown Family history of stroke Other Diabetes mellitus Family history of allergic disorder Family history of cardiovascular disease Family history of sleep apnea Social History Social History Smoking status: Never smoker Second hand tobacco smoke exposure: No (PREVIOUSLY, STOPPED SMOKING YEARS AGO) Alcohol intake: never Substance use: never Substance use type: does not use Do You Feel Safe in your Home?: Yes Lack of Transportation: No Lack of Food: Never True Current Housing: I Have Housing Concerned About Future Housing: No Difficulty Paying Gas/Electric Bills: No Difficulty Paying for Meds: No Currently Unemployed: No Education: High School Diploma/GED Difficulty w/ Childcare or Family Care: No Living arrangements: with family Occupation/Education: retired Gender identity (if verbalized by the patient): Female Sexual Orientation (if Verbalized by the Patient): Straight or Heterosexual Spiritual care concerns: No Meds Home Medications and Allergies Home Medications ?Medication ?Instructions ?Recorded ?Confirmed ?Type atorvastatin 40 mg tablet 40 mg PO DAILY 09/25/20 10/24/24 History empagliflozin 10 mg tablet 10 mg PO DAILY #30 tabs 07/25/23 10/24/24 Rx (Jardiance) metoprolol tartrate 100 mg tablet 100 mg PO BID 01/22/24 10/24/24 History nifedipine 90 mg tablet,extended 90 mg PO DAILY #90 tabs 03/19/24 10/24/24 Rx release clopidogrel 75 mg tablet 75 mg PO DAILY 10/24/24 10/24/24 History escitalopram oxalate 10 mg tablet 10 mg PO DAILY 10/24/24 10/24/24 History furosemide 40 mg tablet 40 mg PO BID 10/24/24 10/24/24 History Allergies Allergy/AdvReac Type Severity Reaction Status Date / Time atorvastatin (From Lipitor) Allergy Mild myalgia Verified 04/20/24 12:36 fluvastatin (From Lescol) Allergy Mild Unknown Verified 04/20/24 12:36 pravastatin (From Pravachol) Allergy Mild Unknown Verified 04/20/24 12:36 rosuvastatin (From Crestor) Allergy Mild myalgia Verified 04/20/24 12:36 Penicillins Allergy Unknown Unknown Verified 04/20/24 12:36 IV CONTRAST DYE Allergy Mild CKD Uncoded 08/09/24 12:36 Vital Signs Vital Signs - 24 hr 10/23/24 18:52 10/23/24 18:56 10/23/24 19:15 Temperature Pulse Rate 80 87 83 Respiratory Rate 24 H 12 Blood Pressure 176/116 H 122/67 Pulse Oximetry 100 100 100 Oxygen Delivery Mechanical Ventilation Fraction of Inspired Oxygen 40 10/23/24 21:20 10/23/24 23:43 10/24/24 00:05 Temperature Pulse Rate 87 81 81 Respiratory Rate Blood Pressure Pulse Oximetry 100 100 100 Oxygen Delivery Mechanical Ventilation Mechanical Ventilation Mechanical Ventilation Fraction of Inspired Oxygen 40 30 30 10/24/24 00:46 10/24/24 00:46 10/24/24 01:01 Temperature Pulse Rate 87 87 72 Respiratory Rate 22 H 24 H 20 Blood Pressure Pulse Oximetry Oxygen Delivery Fraction of Inspired Oxygen 10/24/24 01:16 10/24/24 01:16 10/24/24 01:31 Temperature Pulse Rate 80 72 80 Respiratory Rate 20 20 20 Blood Pressure Pulse Oximetry Oxygen Delivery Fraction of Inspired Oxygen 10/24/24 01:49 10/24/24 01:52 10/24/24 02:00 Temperature 93 F L Pulse Rate 72 89 67 Respiratory Rate 20 20 Blood Pressure 137/84 Pulse Oximetry 99 Oxygen Delivery Fraction of Inspired Oxygen 10/24/24 02:00 10/24/24 02:03 Temperature 96 F L Pulse Rate 67 70 Respiratory Rate 20 Blood Pressure 83/47 L Pulse Oximetry 100 100 Oxygen Delivery Mechanical Ventilation Fraction of Inspired Oxygen 30 Exam Const: Other: Intubated Eyes: Pupils: Equal, round and reactive pupils present Neck: Neck: supple Resp: Other: Mechanical breath sounds Cardio: Rate: regular rate Rhythm: regular rhythm GI: GI Palp: Yes Soft to palpation Other: Mild distension, no tenderness on deep palpation Extrem: General: no edema H&P: Results Labs Labs: Short CBC 10/23/24 Range/Units 19:13 WBC 8.5 (4.5-10.0) K/mm3 Hgb 12.2 (12.0-15.0) g/dL Hct 37.5 (37.0-47.0) % Plt Count 275 (150-375) k/mm3 BMP 10/23/24 19:13 Sodium 143 Potassium 4.3 Chloride 103 Carbon Dioxide 22 BUN 53 H D Creatinine 2.52 H Glucose 73 Calcium 9.1 Cardiac Enzymes 10/23/24 Range/Units 19:13 Troponin I < 0.012 (0.000-0.034) ng/mL Liver Function 10/23/24 Range/Units 19:13 Total Bilirubin 0.5 (0.2-1.3) mg/dL AST 25 (14-36) U/L ALT 18 (6-35) U/L Alkaline Phosphatase 99 (38-126) U/L Albumin 4.4 (3.5-5.1) g/dL Urine 10/23/24 Range/Units 19:13 Urine Color Yellow (Yellow) Urine Appearance Clear (Clear) Urine pH 5.5 (5.0-9.0) Ur Specific [place] 1.011 (1.001-1.035) Urine Protein 3+ H (Negative) mg/dL Urine Glucose (UA) Negative (Negative) mg/dL Assessment and Plan Assessment and plan (1) HTN (hypertension): Code(s): I10 - Essential (primary) hypertension Status: Acute (2) Obesity (BMI 30-39.9): Code(s): E66.9 - Obesity, unspecified Status: Acute (3) Chronic kidney disease, stage 4 (severe): Code(s): N18.4 - Chronic kidney disease, stage 4 (severe) Status: Chronic (4) SOLOMON (acute kidney injury): Code(s): N17.9 - Acute kidney failure, unspecified Status: Acute (5) History of CVA (cerebrovascular accident): Code(s): Z86.73 - Personal history of transient ischemic attack (TIA), and cerebral infarction without residual deficits Status: Acute (6) Altered mental status: Qualifiers: Altered mental status type: unspecified Qualified Code(s): R41.82 - Altered mental status, unspecified Code(s): R41.82 - Altered mental status, unspecified Status: Acute (7) Respiratory failure requiring intubation: Code(s): J96.90 - Respiratory failure, unspecified, unspecified whether with hypoxia or hypercapnia Status: Acute (8) Hypoglycemia: Code(s): E16.2 - Hypoglycemia, unspecified Status: Acute (9) Acidosis, lactic: Code(s): E87.20 - Acidosis, unspecified Status: Acute Plan This is an 83-year-old female who presents to [facility] via EMS after she was found unresponsive at home. She carries an extensive history including CKD stage IV, prior CVA with residual gait imbalance, secondary hyperparathyroidism, obesity, osteoarthritis, gout, asthma/COPD, GERD, hypercholesterolemia, anemia, non-insulin dependent diabetes mellitus, sleep apnea, hypertension, history of UTI, dementia, CHF? History is taken from the son Camacho and relayed information from ER physician. The patient lives with her , the son Camacho is actively helping to take care of her. Reportedly the patient has been in her usual state of health, she has dementia and is only A&O times 1-2. On the day of arrival to the ER on 10/23/2024 the son (Camacho) had given the patient a CBD drink to help calm her anxiety. He obtained the CBD drink from a relative who owns multiple CBD shops in [place]. Camacho then left the house around noon. A caregiver left the house around 2:00 p.m. and that was her last known well time. Camacho returned to the house around 5:00 p.m. and he observed the patient laying at the edge of the bed with her feet up but leaning to the side appearing as if she had fallen asleep. This is where she hangs out often. Sometime later Camacho noticed the patient to have wet herself. He intended to clean her up after she woke up so he had repositioned her in bed and when she was laid flat on her back he noticed she had her tongue out and vomitus on the pillow. She appeared to be gasping for air. Camacho contacted 911 and they asked him to check a pulse. He reports he could not find a pulse but with the consideration he is not a medical professional and was in distress himself. He was told to start CPR. When EMS arrived she was of course obtunded. She was intubated with difficulty and the tube dislodged and a supraglottic airway was placed. Per EMS, a pulse was present. Reportedly she received etomidate and benzodiazepine. This was reported by ER physician however the EMS run sheet is scant and does not provide much useful information. Reportedly, she had a glucose of 53 in the field and was started on a D10 drip. On arrival patient had a blood pressure of 176/116 and saturating 100% through a supraglottic airway. It was exchanged with an ET tube and an NG tube was placed. Received etomidate and rocuronium on this occasion. She was given a L of fluid. Imaging was obtained. WBC 8.5, hemoglobin 12.2, ABG demonstrated pH is 7.3 and pCO2 of 34, bicarb 17.5, BUN 53, serum creatinine 2.52, serum glucose 116, lactic acid 3.7, troponin 0.012, BNP 1470, UA with positive protein and trace leukocyte esterase. Urine drug screen positive for benzodiazepines and cannabinoids. Salicylate and acetaminophen negative. Quad viral screen negative. CTA chest abdomen pelvis negative for PE. Right basilar atelectasis. Mural thickening and edema within the gastric cardia and cecum. Head CT without acute findings. Patient was started on cefepime and vancomycin. Assistant Inventory Manager consulted from the ER. ----- Acute encephalopathy -unclear etiology. EMS reports blood glucose 53 on 1st contact. Patient ingested CBD drink for the first time on the morning of admission. -MRI brain pending Acute respiratory failure requiring intubation -acupuncturist consulted. Currently on Versed and fentanyl. Hypoglycemia -blood glucose 53 on 1st contact. No further hypoglycemic events. Accu-Cheks q.4 hours. Hold off on insulin in the interim. SOLOMON and CKD stage 4 -fluid resuscitation. Repeat BMP. Lactic acidosis -lactic acid 3.7 increasing to 4.7. Received 1 L normal saline bolus afterwards for a total of 2 L now. LR running at 100 cc/hour. Recheck lactic acid now. Uncontrolled hypertension -labetalol p.r.n. Prior CVA Asthma/COPD GERD Hypercholesteremia Sleep apnea Dementia Iom-[id number] diabetes mellitus [employer]ICINE medications to be restarted as appropriate pending overnight course. Accu-Cheks and insulin sliding scale Lovenox 30 mg subQ q.day Full code Protonix 40 mg IV q.a.m. ICU admission, acupuncturist consultation Hospitalist [facility] Advance Care Plan I have confirmed that the patient's Advanced Care Plan is present, code status is documented, or surrogate decision maker is listed in patient medical record.: Yes Medication Reconciliation I have utilized all available resources to obtain, update and review the patients current medications (includes all prescriptions, OTC, herbals, cannabis, and nutritional supplements).: Yes
[2024-10-24 03:32] LABS: Lactic Acid Reflex 4.4 mmol/L (0.7-2.0)
[2024-10-24] MEDS: LACTATED RINGERS 1,000 ML 999 ML IV CONT (04:28)
[2024-10-24 05:10] LABS: Alveolar/Arterial O2 Gradient 91.3 mmHg; Base Excess ABG -5.7 mEq/l (+/-2.0); Carboxyhemoglobin 0.3 % THb (0-2.0); Fractional Inspired Oxygen 30 %; HCO3 ABG 17.8 mEq/l (22.0-26.0); Methemoglobin ABG 0.3 %THb (0-1.5); Oxygen Content ABG 14.2 %vol (16.0-22.0); Oxyhemoglobin 96.5 % THb (90.0-100.0); PCO2 ABG 28.7 mmHg (35.0-45.0); PO2 ABG 88.9 mmHg (80.0-100.0); PO2 FiO2 Ratio Arterial Blood 2.96 %; Reduced Hemoglobin 2.9 %THb (0-5.0); Total Hemoglobin 10.4 g/dL (12.0-18.0); pH ABG 7.411 (7.350-7.450)
[2024-10-24 05:13] LABS: Arterial Blood Gas PEEP 5 cmH2O; Arterial Blood Gas Tidal Volume 350 ml; Arterial Blood Gas Vent Mode CMV; Arterial Blood Gas Ventilator rate 20 /MIN; Device VENTILATOR; Modified Allen's Test Pass; Site Drawn RIGHT RADIAL
[2024-10-24 05:45] LABS: Glucose Point of Care 136 mg/dl (65-105)
[2024-10-24 07:47] LABS: MRSA (PCR) NOT DETECTED (NOT DETECTE)
[2024-10-24 07:52] LABS: Glucose Point of Care 109 mg/dl (65-105)
[2024-10-24] MEDS: LACTATED RINGERS 500 ML IV CONT (08:54)
[2024-10-24] MEDS: LIDOCAINE 1% PF INJ 5 ML VIAL INFILTRATE (09:00)
[2024-10-24 09:33] LABS: Basophils Percent Auto 0.3 % (0.2-1.2); Eosinophils Absolute Auto 0.1 K/mm3 (0-0.3); Eosinophils Percent Auto 0.5 % (0-4.4); Hematocrit 29.1 % (37.0-47.0); Hemoglobin 9.5 g/dL (12.0-15.0); Immature Granulocyte Absolute 0.11 K/mm3 (0.00-0.031); Immature Granulocyte Percent A 0.8 % (0-0.5); Lymphocytes Percent Auto 4.9 % (18.3-44.2); Mean Corpuscular HGB Conc 32.6 g/dl (32-36); Mean Corpuscular Hemoglobin 30.6 pg (26-34); Mean Corpuscular Volume 93.9 fl (80-100); Mean Platelet Volume 11.1 fl (7.4-10.4); Monocytes Absolute Auto 0.5 K/mm3 (0.1-0.6); Monocytes Percent Auto 3.8 % (2.6-8.5); Neutrophils Absolute Auto 12.8 K/mm3 (1.3-6.7); Neutrophils Percent Auto 89.7 % (45.5-73.1); Platelet Count Result 216 k/mm3 (150-375); Red Cell Distribution Width 13.7 % (11.5-14.5); White Blood Count 14.2 K/mm3 (4.5-10.0)
--- NOTE | 2024-10-24 09:33 | WPDCNINT ---
Assessment and Plan Assessment and plan (1) Altered mental status: Qualifiers: Altered mental status type: unspecified Qualified Code(s): R41.82 - Altered mental status, unspecified Code(s): R41.82 - Altered mental status, unspecified Status: Acute Assessment and Plan: Patient was found unresponsive at home by her son, 3 hours after he gave her a CBD drink to calm her anxiety. Patient did have emesis at home, unknown if she had lost a pulse. Upon EMS arrival she did have a pulse but was difficult to intubate so laryngeal airway was placed, patient brought to ED which she was intubated. -urine drug screen was positive for benzodiazepines and cannabis which could possibly could have caused altered mental status. -patient given IV fluids, will monitor urine output to see if she can excrete these medications 10/23/2024: -CT brain with no acute intracranial hemorrhage or suspicious mass effect (2) Respiratory failure requiring intubation: Code(s): J96.90 - Respiratory failure, unspecified, unspecified whether with hypoxia or hypercapnia Status: Acute Assessment and Plan: Patient was unresponsive at home, had emesis. Failed intubation on side by EMS, laryngeal airway was inserted -10/23: Intubated upon arrival to the ER for airway protection and possible aspiration -currently on CMV mode of ventilation, peep of 5, 30% FiO2 -given history of asthma and COPD, will start bronchodilator -sedated with fentanyl and Versed infusion, maintain RASS of 0 to -2, daily SBT and SAT 10/23/2024: -CTA chest abdomen and pelvis: No acute intra-abdominal findings to explain patient's presentation. Mural thickening and edema within the gastric cardia and cecum. Endotracheal tube tip is at the level of the chikis for which withdrawal of approximately 2 cm is suggested for optimal placement. Orogastric tube extends to the second portion of the duodenum, and tenting of the wall is demonstrated. Withdrawal of approximately 9 to 10 cm is recommended for optimal placement and to decrease the risk of perforation. (3) Sepsis: Code(s): A41.9 - Sepsis, unspecified organism Status: Acute Assessment and Plan: Elevated lactic acidosis, hypotension,, respiratory failure, altered mental status -lactic acid trending down adequate IV fluid -according the son patient has not been taking adequate oral intake, liquids as well as solids for the last 2-3 weeks -could be hypovolemia secondary to decreased oral intake -there is a history of CHF, chest x-ray was clear, given adequate amount of IV fluid -will check echocardiogram -further intravascular volume expansion with albumin -blood pressures remain stable at this time, continue to monitor -patient does have a PICC line which was placed on 10/24/2024 -continue cefepime and vancomycin (10/23) -10/23: blood cultures have been obtained and pending (4) Aspiration pneumonia: Code(s): J69.0 - Pneumonitis due to inhalation of food and vomit Status: Acute Assessment and Plan: Pt had emesis at home, possible aspiration pneumonitis/pneumonia -continue antibiotics as above (5) Positive urine drug screen: Code(s): R82.5 - Elevated urine levels of drugs, medicaments and biological substances Status: Acute Assessment and Plan: Urine drug screen was positive for cannabinoids and benzodiazepine -- (6) Hypoglycemia: Code(s): E16.2 - Hypoglycemia, unspecified Status: Acute Assessment and Plan: Patient has a history of type 2 diabetes, was hypoglycemic when EMS arrived, received dextrose -blood sugars have been stable -continue Accu-Cheks and sliding scale insulin (7) Chronic kidney disease, stage 4 (severe): Code(s): N18.4 - Chronic kidney disease, stage 4 (severe) Status: Chronic Assessment and Plan: Stage 4 chronic kidney disease, creatinine at baseline -patient has been adequately fluid-resuscitated, added albumin for further intravascular volume repletion -continue monitor urine output, renal function and electrolytes (8) HTN (hypertension): Code(s): I10 - Essential (primary) hypertension Status: Acute Assessment and Plan: History of essential hypertension, currently blood pressures are borderline, will hold all antihypertensives for now (9) Diabetes: Code(s): E11.9 - Type 2 diabetes mellitus without complications Status: Acute Assessment and Plan: Accu-Cheks and sliding scale insulin Plan DVT prophylaxis: SCDs, hold chemoprophylaxis due to coffee-ground drainage in the OG tube Stress ulcer prophylaxis: Protonix IV q.12 hours Nutrition: Trickle tube feeds Code Status: Full code Critical Care Time Spent: 55 minutes Due to a high probability of clinically significant, life threatening deterioration, the patient required my highest level of preparedness to intervene emergently and I personally spent this critical care time directly and personally managing the patient. This critical care time included obtaining a history; examining the patient; pulse oximetry; ordering and review of studies; arranging urgent treatment with development of a management plan; evaluation of patient's response to treatment; frequent reassessment; and discussions with other providers. It was exclusive of separately billable procedures and treating other patients and teaching time. Please see Assessment and Plan section and the rest of the note for further information on patient assessment and treatment This dictation may have been done utilizing a voice recognition system. Attempts have been made to correct errors. However, there may be uncorrected grammatical, spelling, and recognitions errors present. It Consulting Manager Consult Note Consult date: 10/24/24 Reason for consult: Unresponsive episode after being given CBD drink by her son, acute respiratory failure requiring intubation HPI: Madyson Giraldo is a 83 year old female with past medical history of CKD stage 4, prior CVA with residual gait imbalance, secondary hyperparathyroidism, obesity, osteoarthritis, gout, asthma/COPD, GERD, hypercholesterolemia, anemia, mlu-ozjxrat-lmoocoekk diabetes, sleep apnea, hypertension, history of UTI, dementia alert and oriented times 1-2 at baseline, history of CHF, osteoarthritis, essential hypertension presented the ED on 10/23/2024 after being found unresponsive at home. She was apparently in her usual state of health, 1 of her sons give her a CBD drink 2, anxiety, after 3 hours he found her leaning on the side, fallen asleep, altered mental status. She also had emesis when she would lay down on her bed and was gasping for air. 911 was called, upon arrival of the EMS she had a pulse but was obtunded. Intubated on site by EMS which was difficult and the tube was dislodged so a supraglottic airway was placed. Patient was intubated in the ER arrival. She was also hypoglycemic with a glucose of 53. In the ER she was given 1 L IV fluid bolus, WBC was 8.5, hemoglobin 12.2, ABG 7.3, pCO2 of 34, bicarb of 17, oxygen 553, on 100% FiO2 and peep of 5. INR was 1.1 electrolytes were within normal limits, BUN 53, creatinine 2.52 (baseline creatinine 1.80-2.60). LFTs are within normal limits, lactic acid was 3.7, increased to 4.7 and then 4.4. ProBNP was 14 70, troponin x1 was negative. UA was negative for infection. Urine drug screen was positive for benzodiazepines and cannabinoids. Influenza, RSV and SARS-CoV-2 PCR was negative -CT brain with no acute intracranial hemorrhage or suspicious mass effect -CTA chest abdomen and pelvis: No acute intra-abdominal findings to explain patient's presentation. Mural thickening and edema within the gastric cardia and cecum. Endotracheal tube tip is at the level of the chikis for which withdrawal of approximately 2 cm is suggested for optimal placement. Orogastric tube extends to the second portion of the duodenum, and tenting of the wall is demonstrated. Withdrawal of approximately 9 to 10 cm is recommended for optimal placement and to decrease the risk of perforation. Patient was given additional 1 L IV fluid bolus in the ICU overnight. Started on cefepime and vancomycin. Since 10/24/2024: Patient seen and examined in the ICU this morning, remains intubated on CMV mode of ventilation, peep of 5, 30% FiO2. Patient is sedated with fentanyl and Versed infusion. Opens her eyes but does not follow simple commands. Blood pressure is slightly low, transmission specialist had difficulty drawing blood as a thought she was intravascularly dry. Additional 500 mL IV fluid bolus was given, blood pressures improved, PICC line was inserted. Labs were obtained and pending. Patient also having coffee-ground emesis and her OG tube Review of Systems Review of Systems: ROS unobtainable: Yes unobtainable due to endotracheal tube, unobtainable due to medical condition and unobtainable due to mental status [facility] Past Medical History Medical History Anemia Unintentional weight loss Osteitis pubis Asthma-COPD overlap syndrome Hemoglobin A1c less than 7.0% per pt A1c was 6.7 around Sep 2020 Adenomatous colon polyp Lower abdominal pain Epigastric pain Sleep apnea, unspecified Essential hypertension Type 2 diabetes mellitus Congestive heart failure Ventral incisional hernia Disorder of vitamin B12 Edema Pure hypercholesterolemia Allergic rhinitis GERD (gastroesophageal reflux disease) Asthma Indigestion Contusion of lower leg Gout Fracture of humerus Disorder of rotator cuff Brachial neuritis Neck pain Pain, joint, ankle and foot Shoulder joint pain 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 Generalized osteoarthritis of multiple sites Seronegative spondyloarthropathy (~2017) Surgical History Surgical History History of left cataract extraction History of right cataract extraction Family History Family History Mother Hypertension Unknown Family history of stroke Other Diabetes mellitus Family history of allergic disorder Family history of cardiovascular disease Family history of sleep apnea Social History Social History Smoking status: Never smoker Second hand tobacco smoke exposure: No (PREVIOUSLY, STOPPED SMOKING YEARS AGO) Alcohol intake: never Substance use: never Substance use type: does not use Do You Feel Safe in your Home?: Yes Lack of Transportation: No Lack of Food: Never True Current Housing: I Have Housing Concerned About Future Housing: No Difficulty Paying Gas/Electric Bills: No Difficulty Paying for Meds: No Currently Unemployed: No Education: High School Diploma/GED Difficulty w/ Childcare or Family Care: No Living arrangements: with family Occupation/Education: retired Gender identity (if verbalized by the patient): Female Sexual Orientation (if Verbalized by the Patient): Straight or Heterosexual Spiritual care concerns: No Meds Home Medications and Allergies Home Medications ?Medication ?Instructions ?Recorded ?Confirmed ?Type atorvastatin 40 mg tablet 40 mg PO DAILY 09/25/20 10/24/24 History empagliflozin 10 mg tablet 10 mg PO DAILY #30 tabs 07/25/23 10/24/24 Rx (Jardiance) metoprolol tartrate 100 mg tablet 100 mg PO BID 01/22/24 10/24/24 History nifedipine 90 mg tablet,extended 90 mg PO DAILY #90 tabs 03/19/24 10/24/24 Rx release clopidogrel 75 mg tablet 75 mg PO DAILY 10/24/24 10/24/24 History escitalopram oxalate 10 mg tablet 10 mg PO DAILY 10/24/24 10/24/24 History furosemide 40 mg tablet 40 mg PO BID 10/24/24 10/24/24 History Allergies Allergy/AdvReac Type Severity Reaction Status Date / Time atorvastatin (From Lipitor) Allergy Mild myalgia Verified 04/20/24 12:36 fluvastatin (From Lescol) Allergy Mild Unknown Verified 04/20/24 12:36 pravastatin (From Pravachol) Allergy Mild Unknown Verified 04/20/24 12:36 rosuvastatin (From Crestor) Allergy Mild myalgia Verified 04/20/24 12:36 Penicillins Allergy Unknown Unknown Verified 04/20/24 12:36 IV CONTRAST DYE Allergy Mild CKD Uncoded 04/20/24 12:36 Vital Signs Vital Signs - 24 hr 10/23/24 18:52 10/23/24 18:56 10/23/24 19:15 Temperature Pulse Rate 80 87 83 Respiratory Rate 24 H 12 Blood Pressure 176/116 H 122/67 Pulse Oximetry 100 100 100 Oxygen Delivery Mechanical Ventilation Fraction of Inspired Oxygen 40 10/23/24 21:20 10/23/24 23:43 10/24/24 00:05 Temperature Pulse Rate 87 81 81 Respiratory Rate Blood Pressure Pulse Oximetry 100 100 100 Oxygen Delivery Mechanical Ventilation Mechanical Ventilation Mechanical Ventilation Fraction of Inspired Oxygen 40 30 30 10/24/24 00:30 10/24/24 00:45 10/24/24 00:46 Temperature 93.1 F L 93.4 F L Pulse Rate 87 Respiratory Rate 22 H Blood Pressure Pulse Oximetry Oxygen Delivery Fraction of Inspired Oxygen 10/24/24 00:46 10/24/24 01:00 10/24/24 01:01 Temperature 93.8 F L Pulse Rate 87 72 Respiratory Rate 24 H 20 Blood Pressure Pulse Oximetry Oxygen Delivery Fraction of Inspired Oxygen 10/24/24 01:15 10/24/24 01:16 10/24/24 01:16 Temperature 93.8 F L Pulse Rate 80 72 Respiratory Rate 20 20 Blood Pressure Pulse Oximetry Oxygen Delivery Fraction of Inspired Oxygen 10/24/24 01:30 10/24/24 01:31 10/24/24 01:49 Temperature 94.5 F L Pulse Rate 80 72 Respiratory Rate 20 20 Blood Pressure Pulse Oximetry Oxygen Delivery Fraction of Inspired Oxygen 10/24/24 01:52 10/24/24 02:00 10/24/24 02:00 Temperature 93 F L 96 F L Pulse Rate 89 67 67 Respiratory Rate 20 20 Blood Pressure 137/84 83/47 L Pulse Oximetry 99 100 Oxygen Delivery Fraction of Inspired Oxygen 10/24/24 02:00 10/24/24 02:00 10/24/24 02:00 Temperature 95.3 F L Pulse Rate 67 67 Respiratory Rate 20 20 Blood Pressure Pulse Oximetry Oxygen Delivery Fraction of Inspired Oxygen 10/24/24 02:03 10/24/24 02:30 10/24/24 02:35 Temperature 96.6 F L Pulse Rate 70 Respiratory Rate Blood Pressure Pulse Oximetry 100 100 Oxygen Delivery Mechanical Ventilation Mechanical Ventilation Fraction of Inspired Oxygen 30 30 10/24/24 02:42 10/24/24 03:01 10/24/24 04:00 Temperature 97 F L Pulse Rate Respiratory Rate Blood Pressure Pulse Oximetry 100 Oxygen Delivery Mechanical Ventilation Fraction of Inspired Oxygen 30 30 10/24/24 04:00 10/24/24 04:00 10/24/24 04:00 Temperature 97.8 F Pulse Rate 71 70 Respiratory Rate 20 Blood Pressure 97/53 L Pulse Oximetry 100 Oxygen Delivery Fraction of Inspired Oxygen 30 10/24/24 04:00 10/24/24 04:00 10/24/24 05:20 Temperature Pulse Rate 71 70 70 Respiratory Rate 20 20 Blood Pressure Pulse Oximetry 92 Oxygen Delivery Mechanical Ventilation Fraction of Inspired Oxygen 30 10/24/24 05:56 10/24/24 05:57 10/24/24 06:00 Temperature Pulse Rate 69 69 Respiratory Rate 20 20 Blood Pressure 110/51 L Pulse Oximetry 100 99 Oxygen Delivery Mechanical Ventilation Fraction of Inspired Oxygen 28 10/24/24 06:00 10/24/24 07:05 10/24/24 08:00 Temperature 100.0 F H Pulse Rate 69 69 68 Respiratory Rate 20 20 20 Blood Pressure 96/48 L Pulse Oximetry 98 Oxygen Delivery Fraction of Inspired Oxygen 10/24/24 08:45 Temperature Pulse Rate 67 Respiratory Rate Blood Pressure Pulse Oximetry 98 Oxygen Delivery Mechanical Ventilation Fraction of Inspired Oxygen 28 Exam Narrative: General: Elderly female currently intubated and sedated, in no acute distress HEENT:? Pupil are equal and reactive, sclerae is clear, ETT in place Neck:? Supple Respiratory:? Clear to auscultation bilaterally, decreased at bases, no wheezing, adequate air entry otherwise Cardiac:? S1-S2 is normal, regular rate and rhythm Abdomen:? Soft, nontender, obese, hypoactive bowel sound, no tenderness to palpation Extremities:? No edema, palpable pedal pulse Neuro:? Patient is intubated, sedated, opens her eyes to name but does not follow simple commands. Skin:? Warm and dry, no skin lesions noted Psych:? Unable to assess at this time Results Labs 10/24/24 09:24 10/24/24 09:24 Labs: Short CBC 10/23/24 Range/Units 19:13 WBC 8.5 (4.5-10.0) K/mm3 Hgb 12.2 (12.0-15.0) g/dL Hct 37.5 (37.0-47.0) % Plt Count 275 (150-375) k/mm3 BMP 10/23/24 19:13 Sodium 143 Potassium 4.3 Chloride 103 Carbon Dioxide 22 BUN 53 H D Creatinine 2.52 H Glucose 73 Calcium 9.1 Cardiac Enzymes 10/23/24 Range/Units 19:13 Troponin I < 0.012 (0.000-0.034) ng/mL Liver Function 10/23/24 Range/Units 19:13 Total Bilirubin 0.5 (0.2-1.3) mg/dL AST 25 (14-36) U/L ALT 18 (6-35) U/L Alkaline Phosphatase 99 (38-126) U/L Albumin 4.4 (3.5-5.1) g/dL Urine 10/23/24 Range/Units 19:13 Urine Color Yellow (Yellow) Urine Appearance Clear (Clear) Urine pH 5.5 (5.0-9.0) Ur Specific Cunningham 1.011 (1.001-1.035) Urine Protein 3+ H (Negative) mg/dL Urine Glucose (UA) Negative (Negative) mg/dL Quality VTE Prophylaxis VTE prophylaxis: mechanical ordered If No VTE Prophylaxis Answer both mechanical and pharmacologic: Reason no mechanical VTE proph: medical contraindication (Coffee-ground drainage in the OG tube) Hospitalist MIPS Advance Care Plan I have confirmed that the patient's Advanced Care Plan is present, code status is documented, or surrogate decision maker is listed in patient medical record.: Yes Medication Reconciliation I have utilized all available resources to obtain, update and review the patients current medications (includes all prescriptions, OTC, herbals, cannabis, and nutritional supplements).: Yes
[2024-10-24 09:47] LABS: Alanine Aminotransferase 15 U/L (6-35); Alkaline Phosphatase 81 U/L (38-126); Anion Gap 12 mmol/L (4-12); Aspartate Amino Transferase 20 U/L (14-36); Bilirubin,Total 0.8 mg/dL (0.2-1.3); Blood Urea Nitrogen 49 mg/dL (7-17); Calcium 8.4 mg/dL (8.4-10.2); Carbon Dioxide 20 mmol/L (22-30); Chloride 104 mmol/L (98-107); Estimated CRCL calculation 13 ml/min; Estimated Glomerular Filt Rate 21; Glucose 123 mg/dL (65-110); Lactic Acid Reflex 2.3 mmol/L (0.7-2.0); Magnesium 1.4 mg/dL (1.6-2.3); Potassium 4.3 mmol/L (3.4-5.0); Sodium 136 mmol/L (137-145)
[2024-10-24] MEDS: CEFEPIME 1 GM/NS 50 ML 1 GM/50 ML BAG IVPB ×2 (09:51→20:33)
[2024-10-24] MEDS: ALBUMIN HUMAN 25% 25 GM/100 ML 100 ML IVPB ×2 (09:51→17:38)
[2024-10-24] MEDS: ENOXAPARIN 30 MG/0.3 ML SYRINGE SUB-Q (09:51)
[2024-10-24] MEDS: PANTOPRAZOLE SODIUM IV 40 MG VIAL IV PUSH ×2 (09:52→20:33)
[2024-10-24] MEDS: MINERAL OIL/WHITE PETROLATUM OINTMENT 1 APPLIC EACH EYE ×2 (09:52→20:34)
[2024-10-24] MEDS: LACTATED RINGERS 1,000 ML 100 ML IV CONT (09:55)
[2024-10-24 10:13] LABS: Procalcitonin 8.6 ng/mL
[2024-10-24 11:59] LABS: Glucose Point of Care 107 mg/dl (65-105)
[2024-10-24] MEDS: metroNIDAZOLE 500 MG/ISO 100ML 500 MG/100 ML BAG 100 MG IVPB ×2 (12:20→20:33)
[2024-10-24 12:29] LABS: Reflex Lactic Acid Yes or No Add Lactic
[2024-10-24 13:02] LABS: Lactic Acid 2.2 mmol/L (0.7-2.0)
[2024-10-24] MEDS: CENTRAL LINE FLUSH 10 ML IV PUSH ×2 (13:06→20:34)
[2024-10-24] MEDS: IPRATROPIUM 0.5 MG/ALBUTEROL SULFATE 2.5 MG AMPUL.NEB 3 ML INHALATION ×2 (14:08→21:22)
[2024-10-24 18:39] LABS: Glucose Point of Care 92 mg/dl (65-105)
[2024-10-25] VITALS (29 sets, daily range): BP systolic 118–151; BP diastolic 49–65; PULSE 80–109; RESP 15–27; TEMP 37.2–37.9; O2SAT 95–99
[2024-10-25] MEDS: ALBUMIN HUMAN 25% 25 GM/100 ML 100 ML IVPB ×4 (00:04→18:16)
[2024-10-25 00:12] LABS: Glucose Point of Care 96 mg/dl (65-105)
[2024-10-25] MEDS: FENTANYL 2,500MCG/NS250ML(*CRX 2,500 MCG/250 ML BAG 7.5 MCG IV CONT (01:46)
[2024-10-25] MEDS: LACTATED RINGERS 1,000 ML 100 ML IV CONT (02:00)
[2024-10-25] MEDS: IPRATROPIUM 0.5 MG/ALBUTEROL SULFATE 2.5 MG AMPUL.NEB 3 ML INHALATION ×4 (02:02→19:19)
[2024-10-25 03:35] LABS: Basophils Percent Auto 0.3 % (0.2-1.2); Eosinophils Absolute Auto 0.2 K/mm3 (0-0.3); Eosinophils Percent Auto 2.4 % (0-4.4); Hematocrit 25.1 % (37.0-47.0); Hemoglobin 7.9 g/dL (12.0-15.0); Immature Granulocyte Absolute 0.06 K/mm3 (0.00-0.031); Immature Granulocyte Percent A 0.7 % (0-0.5); Lymphocytes Absolute Auto 0.87 K/mm3 (0.9-3.2); Lymphocytes Percent Auto 9.5 % (18.3-44.2); Mean Corpuscular HGB Conc 31.5 g/dl (32-36); Mean Corpuscular Hemoglobin 30.9 pg (26-34); Mean Platelet Volume 10.9 fl (7.4-10.4); Monocytes Absolute Auto 0.5 K/mm3 (0.1-0.6); Monocytes Percent Auto 5.1 % (2.6-8.5); Neutrophils Absolute Auto 7.5 K/mm3 (1.3-6.7); Platelet Count Result 149 k/mm3 (150-375); Red Blood Count 2.56 M/mm3 (4.2-5.4); White Blood Count 9.2 K/mm3 (4.5-10.0)
[2024-10-25 03:46] LABS: Alanine Aminotransferase 14 U/L (6-35); Albumin Level 3.7 g/dL (3.5-5.1); Alkaline Phosphatase 61 U/L (38-126); Anion Gap 13 mmol/L (4-12); Aspartate Amino Transferase 20 U/L (14-36); Bilirubin,Total 0.6 mg/dL (0.2-1.3); Blood Urea Nitrogen 51 mg/dL (7-17); Calcium 8.5 mg/dL (8.4-10.2); Carbon Dioxide 20 mmol/L (22-30); Chloride 104 mmol/L (98-107); Estimated CRCL calculation 11 ml/min; Estimated Glomerular Filt Rate 18; Glucose 106 mg/dL (65-110); Magnesium 1.6 mg/dL (1.6-2.3); Phosphorus 5.8 mg/dL (2.5-4.5); Potassium 4.3 mmol/L (3.4-5.0); Sodium 137 mmol/L (137-145)
[2024-10-25 03:54] LABS: Vancomycin Trough 8.3 ug/mL (10.0-20.0)
[2024-10-25] MEDS: VANCOMYCIN 1,000 MG/NS 250 ML 1,000 MG/250 ML BAG 250 MG IVPB (04:33)
[2024-10-25] MEDS: CENTRAL LINE FLUSH 10 ML IV PUSH ×3 (04:34→20:12)
[2024-10-25] MEDS: metroNIDAZOLE 500 MG/ISO 100ML 500 MG/100 ML BAG 100 MG IVPB ×3 (05:35→20:06)
[2024-10-25 05:42] LABS: Alveolar/Arterial O2 Gradient 84.3 mmHg; Base Excess ABG -4.7 mEq/l (+/-2.0); Carboxyhemoglobin 0.7 % THb (0-2.0); Fractional Inspired Oxygen 28 %; HCO3 ABG 22.3 mEq/l (22.0-26.0); Oxygen Content ABG 10.6 %vol (16.0-22.0); PO2 ABG 55.2 mmHg (80.0-100.0); PO2 FiO2 Ratio Arterial Blood 1.97 %; Reduced Hemoglobin 12.8 %THb (0-5.0); Total Hemoglobin 8.7 g/dL (12.0-18.0)
[2024-10-25 06:35] LABS: Oxygen Saturation ABG 83.7 % (95.0-100.0); pH ABG 7.258 (7.350-7.450)
[2024-10-25 06:36] LABS: Device VENTILATOR; Modified Allen's Test Pass; Oxyhemoglobin 86.5 % THb (90.0-100.0); Site Drawn LEFT RADIAL
[2024-10-25 06:38] LABS: Arterial Blood Gas PEEP 5 cmH2O; Arterial Blood Gas Tidal Volume 350 ml; Arterial Blood Gas Vent Mode CMV; Arterial Blood Gas Ventilator rate 18 /MIN
[2024-10-25 08:12] LABS: Alveolar/Arterial O2 Gradient 91.2 mmHg; Base Excess ABG -4.1 mEq/l (+/-2.0); Fractional Inspired Oxygen 28 %; HCO3 ABG 21.8 mEq/l (22.0-26.0); Oxygen Content ABG 10.5 %vol (16.0-22.0); Oxyhemoglobin 89.6 % THb (90.0-100.0); PCO2 ABG 43.5 mmHg (35.0-45.0); PO2 ABG 57.1 mmHg (80.0-100.0); PO2 FiO2 Ratio Arterial Blood 2.04 %; Total Hemoglobin 8.3 g/dL (12.0-18.0); pH ABG 7.317 (7.350-7.450)
[2024-10-25 08:13] LABS: Arterial Blood Gas PEEP 5 cmH2O; Arterial Blood Gas Tidal Volume 350 ml; Arterial Blood Gas Vent Mode CMV; Arterial Blood Gas Ventilator rate 18 /MIN; Device VENTILATOR; Modified Allen's Test Pass; Oxygen Saturation ABG 87.3 % (95.0-100.0); Site Drawn LEFT RADIAL
[2024-10-25 09:04] LABS: Creatine Kinase 289 U/L (30-135)
[2024-10-25] MEDS: PANTOPRAZOLE SODIUM IV 40 MG VIAL IV PUSH ×2 (09:20→20:06)
[2024-10-25] MEDS: CEFEPIME 1 GM/NS 50 ML 1 GM/50 ML BAG IVPB ×2 (09:20→20:05)
[2024-10-25] MEDS: MINERAL OIL/WHITE PETROLATUM OINTMENT 1 APPLIC EACH EYE ×2 (09:20→20:05)
[2024-10-25 10:22] LABS: Creatinine Urine 56.2 mg/dL
[2024-10-25 10:35] LABS: Potassium Urine Random 25.7 meq/L; Sodium Urine Random 63 meq/L
[2024-10-25 11:06] LABS: Eosinophil Urine None Seen % (None Seen); Urine Eos QC 2nd Tech Confirmed
--- NOTE | 2024-10-25 11:21 | PCFNICU ---
ICU Rounding Note: Pt current nutrition is Vital AF 1.2. at 20 ml/hr. Nutrition recommendation: goal rate at 50 ml/hr. Last recorded weight is 55.5 kg, stable Bowel Motility: No BM reported. Labs Reviewed: Cr 2.97, GFR 18, BUN 51, Cr 2.97 Meds Noted:Fentanyl, Versed, Lovenox, Vancomycin Skin: WNL Additional Notes: Patient remains on mechanical vent. Tube feedings are being tolerated of Vital AF 1.2 at 20 ml/hr. Plans to advance tube feedings today. Flush 30 ml q 4 hours. Agree with diet orders. Following daily in ICU rounds. Reassess weight, labs, skin, diet orders, meds every Tuesday and Tuesday.
[2024-10-25 11:33] LABS: Creatinine Urine 82.3 mg/dL
[2024-10-25 11:59] LABS: Glucose Point of Care 114 mg/dl (65-105)
[2024-10-25 12:13] LABS: Urea Random Urine 379 MG/DL
[2024-10-25 12:32] LABS: Total Protein Urine Random 407 mg/dL; Ur Ttl Prot Creatinine Ratio 4.95 mg/mg (0-0.20)
[2024-10-25 12:33] LABS: Total Protein Urine Random 406 mg/dL
--- NOTE | 2024-10-25 12:36 | P.CONNP_ITS ---
Assessment and Plan Assessment and plan (1) SOLOMON (acute kidney injury): Code(s): N17.9 - Acute kidney failure, unspecified Status: Acute Assessment and Plan: * at baseline on admission with worsening noted on 10/25 * suspect multifactorial etiology: * infection/sepsis (aspiration pneumonia) * hypoxia * contrast exposure (CTA C/A/P on 10/23/24) * relative hypotension on admission * diuretic use prior to admission * other(?) * evaluation to date noted: * renal u/s consistent with CKD with no acute issues * urine electrolytes prerenal (by FeUrea) * urine eosinophils negative * proteinuria noted * CPK mildly elevated but not enough to affect kidney function * still making urine and without critical electrolytes * remains at risk for 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/dialysis * follow trend of repeat labs and UOP (2) Chronic kidney disease, stage 4 (severe): Code(s): N18.4 - Chronic kidney disease, stage 4 (severe) Status: Chronic Assessment and Plan: * baseline creatinine seems to run ~ 1.8 - 2.6mg/dl in the last few years * likely secondary to hypertension, diabetes, vascular disease, YAMILKA, and age- related change based on outpatient evaluation (3) Acute hypoxemic respiratory failure: Code(s): J96.01 - Acute respiratory failure with hypoxia Status: Acute Assessment and Plan: * found unresponsive at home * intubated on arrival to ER for airway protection and possible aspiration * CXR with worsening central congestive change and patchy bilateral airspace disease. Correlate for worsening pulmonary edema versus pneumonia. * complicated by known history of COPD * on bronchodilators and antibiotics * ventilator weaning when more stable (4) Altered mental status: Qualifiers: Altered mental status type: unspecified Qualified Code(s): R41.82 - Altered mental status, unspecified Code(s): R41.82 - Altered mental status, unspecified Status: Acute Assessment and Plan: * found unresponsive by family * reportedly given CBD beverage 3 hours earlier * unclear if lost pulse based on history * per EMS record, pulse present on their arrival/assessment * urine drug screen was positive for benzodiazepines and cannabis * possible etiology of altered mentation... * CT brain on admission with no acute intracranial hemorrhage or suspicious mass effect * follow mentation as tolerated (5) Sepsis: Code(s): A41.9 - Sepsis, unspecified organism Status: Acute Assessment and Plan: * as noted by presentation - low BP/hypotension, acute respiratory failure, AMS, and lactic acidosis * s/p aggressive IVF resuscitation * lactic acid down trending * suspect several issues to blame: * diminished oral intake/prerenal factors * infection (aspiration pneumonia) * other (?) * no need for vasopressor therapy * follow culture data (so far negative to date) * empiric antibiotics * recent Echo (10/24( noted: * normal biventricular size and systolic function * no significant valvular disease * atrial septum appears aneurysmal however there is no [id number] shunt by agitated saline study * continue supportive therapy (6) Aspiration pneumonia: Code(s): J69.0 - Pneumonitis due to inhalation of food and vomit Status: Acute Assessment and Plan: * noted emesis/vomiting prior to admission * suspected aspiration pneumonitis/pneumonia * recent imaging noted * on antibiotics (7) HTN (hypertension): Code(s): I10 - Essential (primary) hypertension Status: Acute Assessment and Plan: * borderline low on admission * however, better readings at this time * BP medications on hold for now * follow trend of hemodynamics (8) Diabetes: Code(s): E11.9 - Type 2 diabetes mellitus without complications Status: Chronic Assessment and Plan: * follow accu-cheks * glycemic control per screen writer Long extensive discussion ( greater than 20 minutes) with the patient's son at bedside regarding all of her acute medical issues including her worsening renal dysfunction. I voiced my concerns that her renal function could get worse before it gets better and there is always the possibility that her kidney function could progress to the requirement of some other invasive intervention (i.e. renal replacement therapy/dialysis). He appeared to voice understanding. Case discussed with Dr. Sánchez as well. I will continue to follow the patient with you while he remains hospitalized and make further recommendations as deemed necessary. Thank you for allowing me to participate in the care of this patient. L History of Present Illness Reason for Consult Consult date: 10/25/24 Reason for consult: acute renal failure (on chronic kidney disease) Chief Complaint Chief complaint: Altered Mental Status, Respiratory Failure History of Present Illness Narrative: Most of the information I have obtained is from review of the electronic medical record as well as discussion with the physician/nurses involved in the patient's care as well as her family at bedside as the patient is unable to provide any history as she is currently intubated and on mechanical ventilation. The patient is an 83-year-old female with past medical history as outlined below who presented to [facility] Emergency Room via EMS after being found unresponsive home. The patient was apparently in her usual state of health prior to presentation to hospital. Apparently, 1 of her sons gave her a CBD drink due to issues with anxiety and apparently 3 hours later, she was found with altered mental status. She apparently had an episode emesis as well causing issues respiratory distress. Her son called 911 and upon arrival by EMS, she was found to be obtunded but hemodynamically stable. Intubation was attempted by EMS but was difficult and eventually abandoned for a supraglottic airway placement. She was subsequently transferred to the emergency room for further assessment. On arrival to the emergency room, she was subsequently intubated for airway protection a concern for aspiration. she was somewhat hypotensive as well and was aggressively IV fluid resuscitated with improvement in her blood pressure. Routine blood test demonstrated a CBC with white blood count 8.5 hemoglobin 12.2 and a chemistry consistent with her known history of chronic kidney disease. Initial ABG showed a pH of 7.3, pCO2 of 34 bicarb is 17 and PO2 of 53. Her lactic acid was elevated at 3.7 but did downward trend with IV fluid resuscitation and her proBNP was 14 70 with initial troponin that was negative. Urinalysis was unremarkable for infection but her urine drug screen did show benzodiazepines and cannabinoids. Viral testing for influenza, RSV, and COVID were negative. Subsequent CT scan of the brain showed no acute intracranial process and she also underwent a CTA of the chest abdomen pelvis which was only significant for mural thickening within the gastric cardia and cecum and no acute intra-abdominal findings. After appropriate cultures were obtained, she was started on antibiotics for presumed aspiration pneumonia and transferred to the ICU for further evaluation therapy. Since her admission, she remains intubated / sedated and on mechanical ventilation and her blood pressure has been improving with supportive therapy and without the need for vasopressor therapy. Renal consultation was requested due to her acute kidney injury on top of her baseline chronic kidney disease. As mentioned above, on admission, her creatinine was at baseline which usually runs around 1.8-2.6 mg/dL in the last year so. Unfortunately, labs done this morning show some worsening of her renal function although she still continues to make reasonable urine output. He does not appear to have any issues with acute critical electrolyte abnormalities and acid-base status appears to be relatively stable as well. However, her recent chest x-ray demonstrates worsening pneumonia and possible pulmonary edema. Her baseline chronic kidney disease is thought to be secondary to a combination of hypertension, diabetes, vascular disease, and age-related change. Currently, at the time my evaluation, she is intubated/sedated and in no apparent distress. Review of Systems 2 Review of Systems: As per HPI. [facility] Past Medical History Medical History Anemia Unintentional weight loss Osteitis pubis Asthma-COPD overlap syndrome Hemoglobin A1c less than 7.0% per pt A1c was 6.7 around Sep 2020 Adenomatous colon polyp Lower abdominal pain Epigastric pain Sleep apnea, unspecified Essential hypertension Type 2 diabetes mellitus Congestive heart failure Ventral incisional hernia Disorder of vitamin B12 Edema Pure hypercholesterolemia Allergic rhinitis GERD (gastroesophageal reflux disease) Asthma Indigestion Contusion of lower leg Gout Fracture of humerus Disorder of rotator cuff Brachial neuritis Neck pain Pain, joint, ankle and foot Shoulder joint pain 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 Generalized osteoarthritis of multiple sites Seronegative spondyloarthropathy (~2017) Surgical History Surgical History History of left cataract extraction History of right cataract extraction Family History Family History Mother Hypertension Unknown Family history of stroke Other Diabetes mellitus Family history of allergic disorder Family history of cardiovascular disease Family history of sleep apnea Social History Social History Smoking status: Never smoker Second hand tobacco smoke exposure: No (PREVIOUSLY, STOPPED SMOKING YEARS AGO) Alcohol intake: never Substance use: never Substance use type: does not use Do You Feel Safe in your Home?: Yes Lack of Transportation: No Lack of Food: Never True Current Housing: I Have Housing Concerned About Future Housing: No Difficulty Paying Gas/Electric Bills: No Difficulty Paying for Meds: No Currently Unemployed: No Education: High School Diploma/GED Difficulty w/ Childcare or Family Care: No Living arrangements: with family Occupation/Education: retired Gender identity (if verbalized by the patient): Female Sexual Orientation (if Verbalized by the Patient): Straight or Heterosexual Spiritual care concerns: No Meds Home Medications and Allergies Home Medications ?Medication ?Instructions ?Recorded ?Confirmed ?Type atorvastatin 40 mg tablet 40 mg PO DAILY 09/25/20 10/24/24 History empagliflozin 10 mg tablet 10 mg PO DAILY #30 tabs 07/25/23 10/24/24 Rx (Jardiance) metoprolol tartrate 100 mg tablet 100 mg PO BID 01/22/24 10/24/24 History nifedipine 90 mg tablet,extended 90 mg PO DAILY #90 tabs 03/19/24 10/24/24 Rx release clopidogrel 75 mg tablet 75 mg PO DAILY 10/24/24 10/24/24 History escitalopram oxalate 10 mg tablet 10 mg PO DAILY 10/24/24 10/24/24 History furosemide 40 mg tablet 40 mg PO BID 10/24/24 10/24/24 History Allergies Allergy/AdvReac Type Severity Reaction Status Date / Time atorvastatin (From Lipitor) Allergy Mild myalgia Verified 04/20/24 12:36 fluvastatin (From Lescol) Allergy Mild Unknown Verified 04/20/24 12:36 pravastatin (From Pravachol) Allergy Mild Unknown Verified 04/20/24 12:36 rosuvastatin (From Crestor) Allergy Mild myalgia Verified 04/20/24 12:36 Penicillins Allergy Unknown Unknown Verified 04/20/24 12:36 IV CONTRAST DYE Allergy Mild CKD Uncoded 04/20/24 12:36 Vital Signs Vital Signs Temp Pulse Resp BP Pulse Ox O2 Del Method FiO2 10/25/24 12:00 99.3 F 93 18 140/54 L 98 40 10/25/24 10:58 102 H 97 Mechanical Ventilation 40 10/25/24 10:00 101 H 18 10/25/24 10:00 100 18 10/25/24 10:00 99.2 F 99 18 137/52 L 99 10/25/24 10:00 99 10/25/24 08:25 102 H 18 10/25/24 08:22 101 H 99 Mechanical Ventilation 40 10/25/24 08:18 95 18 10/25/24 08:00 99 18 10/25/24 08:00 99 18 10/25/24 08:00 99 F 95 18 145/54 H 95 10/25/24 08:00 40 10/25/24 08:00 95 10/25/24 08:00 95 18 95 Mechanical Ventilation 40 10/25/24 06:00 98 18 10/25/24 06:00 98 18 10/25/24 06:00 98 18 142/57 H 95 10/25/24 05:40 104 H 96 Mechanical Ventilation 10/25/24 04:00 100 18 10/25/24 04:00 100 18 10/25/24 04:00 99.5 F 100 18 132/56 L 97 10/25/24 04:00 100 10/25/24 04:00 28 10/25/24 04:00 97 Mechanical Ventilation 10/25/24 02:10 92 18 10/25/24 02:02 94 96 Mechanical Ventilation 10/25/24 02:02 94 18 10/25/24 02:00 92 18 10/25/24 02:00 92 18 10/25/24 02:00 98 18 128/51 L 95 10/25/24 01:46 96 18 10/25/24 01:46 96 18 10/25/24 00:00 96 10/25/24 00:00 96 18 10/25/24 00:00 96 18 10/25/24 00:00 99.4 F 96 18 130/49 L 95 10/25/24 00:00 28 10/25/24 00:00 95 Mechanical Ventilation 10/24/24 23:15 93 97 Mechanical Ventilation 10/24/24 22:00 98 18 10/24/24 22:00 99 18 10/24/24 22:00 99 18 128/47 L 93 10/24/24 21:31 87 18 10/24/24 21:23 85 18 10/24/24 21:05 85 97 Mechanical Ventilation 10/24/24 20:00 82 10/24/24 20:00 99.4 F 94 18 126/49 L 96 10/24/24 20:00 28 10/24/24 20:00 96 Mechanical Ventilation 10/24/24 20:00 85 18 10/24/24 20:00 84 18 10/24/24 18:00 75 10/24/24 18:00 75 18 10/24/24 18:00 99.1 F 77 18 110/46 L 97 10/24/24 16:42 77 97 Mechanical Ventilation 28 10/24/24 16:00 80 10/24/24 16:00 75 18 10/24/24 16:00 28 10/24/24 16:00 98 Mechanical Ventilation 28 10/24/24 16:00 98.9 F 80 18 114/47 L 97 Exam 2 Narrative: GENERAL APPEARANCE: elderly female intubated/sedated and on mechanical ventilation HEENT: normocephalic, atraumatic, normal conjunctiva and sclera, nares patient NECK: no lymphadenopathy, thyromegaly, or JVD MOUTH: normal lips, teeth, and gums; ETT in place CARDIOVASCULAR: RRR, normal S1 and S2, no rub detected RESPIRATORY: coarse breath sounds; decreased at bases ABDOMEN: soft, nontender, nondistended, hypoactive bowel sounds EXTREMITIES: no evidence of cyanosis, clubbing, or edema NEUROLOGICAL: unable to assess Results Lab Results 10/25/24 03:19 10/25/24 03:19 Lab results: Most recent lab results ABG pH 7.317 (7.350-7.450) L 10/25/24 08:09 ABG pCO2 43.5 mmHg (35.0-45.0) 10/25/24 08:09 ABG pO2 57.1 mmHg (80.0-100.0) L 10/25/24 08:09 ABG HCO3 21.8 mEq/l (22.0-26.0) L 10/25/24 08:09 ABG O2 Saturation 87.3 % (95.0-100.0) L* 10/25/24 08:09 Calcium 8.5 mg/dL (8.4-10.2) 10/25/24 03:19 Phosphorus 5.8 mg/dL (2.5-4.5) H 10/25/24 03:19 Magnesium 1.6 mg/dL (1.6-2.3) 10/25/24 03:19 Urine Creatinine 82.3 mg/dL 10/25/24 11:15
--- NOTE | 2024-10-25 12:37 | P.PNINT_ITS ---
Progress Note: A&P Assessment and Plan (1) Altered mental status: Qualifiers: Altered mental status type: unspecified Qualified Code(s): R41.82 - Altered mental status, unspecified Code(s): R41.82 - Altered mental status, unspecified Status: Acute Assessment and Plan: Patient was found unresponsive at home by her son, 3 hours after he gave her a CBD drink to calm her anxiety. Patient did have emesis at home, unknown if she had lost a pulse. Upon EMS arrival she did have a pulse but was difficult to intubate so laryngeal airway was placed, patient brought to ED which she was intubated. -urine drug screen was positive for benzodiazepines and cannabis which could possibly could have caused altered mental status. -patient given IV fluids, will monitor urine output to see if she can excrete these medications -adequately fluid-resuscitated, discontinue maintenance IV fluids 10/23/2024: -CT brain with no acute intracranial hemorrhage or suspicious mass effect (2) Respiratory failure requiring intubation: Code(s): J96.90 - Respiratory failure, unspecified, unspecified whether with hypoxia or hypercapnia Status: Acute Assessment and Plan: Patient was unresponsive at home, had emesis. Failed intubation on side by EMS, laryngeal airway was inserted -10/23: Intubated upon arrival to the ER for airway protection and possible aspiration -currently on CMV mode of ventilation, peep of 5, 28% FiO2, -ABG showed respiratory acidosis, increased tidal volume and FiO2 -chest x-ray this morning showed: Worsening central congestive change and patchy bilateral airspace disease. Correlate for worsening pulmonary edema versus pneumonia. -given history of asthma and COPD, continue bronchodilators -sedated with fentanyl and Versed infusion, maintain RASS of 0 to -2, daily SBT and SAT 10/23/2024: -CTA chest abdomen and pelvis: No acute intra-abdominal findings to explain patient's presentation. Mural thickening and edema within the gastric cardia and cecum. Endotracheal tube tip is at the level of the chikis for which withdrawal of approximately 2 cm is suggested for optimal placement. Orogastric tube extends to the second portion of the duodenum, and tenting of the wall is demonstrated. Withdrawal of approximately 9 to 10 cm is recommended for optimal placement and to decrease the risk of perforation. (3) Sepsis: Code(s): A41.9 - Sepsis, unspecified organism Status: Acute Assessment and Plan: Elevated lactic acidosis, hypotension,, respiratory failure, altered mental status -lactic acid trending down adequate IV fluid -according the son patient has not been taking adequate oral intake, liquids as well as solids for the last 2-3 weeks -could be hypovolemia secondary to decreased oral intake -there is a history of CHF, chest x-ray was clear, given adequate amount of IV fluid -further intravascular volume expansion with albumin -blood pressures remain stable at this time, continue to monitor -patient does have a PICC line which was placed on 10/24/2024 -continue cefepime and vancomycin (10/23) -will add doxycycline (10/25) -10/23: Preliminary blood cultures are negative 10/24/2024: Echocardiogram Summary 1. Complete two-dimensional, color flow and Doppler transthoracic echocardiogram is performed. 2. There is normal biventricular size and systolic function. 3. There is no significant valvular disease. 4. The atrial septum appears aneurysmal however there is no [id number] shunt by agitated saline study. (4) Aspiration pneumonia: Code(s): J69.0 - Pneumonitis due to inhalation of food and vomit Status: Acute Assessment and Plan: Pt had emesis at home, possible aspiration pneumonitis/pneumonia 10/25: CXR: Worsening central congestive change and patchy bilateral airspace disease. Correlate for worsening pulmonary edema versus pneumonia -continue antibiotics as above (5) Positive urine drug screen: Code(s): R82.5 - Elevated urine levels of drugs, medicaments and biological substances Status: Acute Assessment and Plan: Urine drug screen was positive for cannabinoids and benzodiazepine (6) Hypoglycemia: Code(s): E16.2 - Hypoglycemia, unspecified Status: Acute Assessment and Plan: Patient has a history of type 2 diabetes, was hypoglycemic when EMS arrived, received dextrose -blood sugars have been stable -continue Accu-Cheks and sliding scale insulin (7) Chronic kidney disease, stage 4 (severe): Code(s): N18.4 - Chronic kidney disease, stage 4 (severe) Status: Chronic Assessment and Plan: Acute on chronic kidney disease stage IV, creatinine was at baseline on admission, -patient has been adequately fluid-resuscitated, added albumin for further intravascular volume repletion -10/25: Elevated creatinine, patient also received contrast on admission, could be related to contrast induced nephropathy, sepsis -10/25: Renal ultrasound showed bilateral medical renal disease, bilateral renal cysts, no hydronephrosis or stones. -urine lytes was not prerenal, negative urine eosinophils, CK levels 289 -appreciate Nephrology evaluation and recommendations -continue monitor urine output, renal function and electrolytes (8) HTN (hypertension): Code(s): I10 - Essential (primary) hypertension Status: Acute Assessment and Plan: History of essential hypertension, currently blood pressures are borderline, will hold all antihypertensives for now (9) Diabetes: Code(s): E11.9 - Type 2 diabetes mellitus without complications Status: Acute Assessment and Plan: Accu-Cheks and sliding scale insulin Plan DVT prophylaxis: SCDs, hold chemoprophylaxis due to coffee-ground drainage in the OG tube, anemia Stress ulcer prophylaxis: Protonix IV q.12 hours Nutrition: Will increase tube feeds to goal, will add p.r.n. MiraLax and senna S Code Status: Full code Critical Care Time Spent: 35 minutes Discussed with patient's sons x2. Updated them with patient's condition and plan of care. I answered all the questions. They are aware that patient's kidney functions have worsened, also that her chest x-ray worsened be related to aspiration pneumonia night as/pneumonia. They are aware that she is on antibiotics, mechanical ventilation. Due to a high probability of clinically significant, life threatening deterioration, the patient required my highest level of preparedness to intervene emergently and I personally spent this critical care time directly and personally managing the patient. This critical care time included obtaining a history; examining the patient; pulse oximetry; ordering and review of studies; arranging urgent treatment with development of a management plan; evaluation of patient's response to treatment; frequent reassessment; and discussions with other providers. It was exclusive of separately billable procedures and treating other patients and teaching time. Please see Assessment and Plan section and the rest of the note for further information on patient assessment and treatment This dictation may have been done utilizing a voice recognition system. Attempts have been made to correct errors. However, there may be uncorrected grammatical, spelling, and recognitions errors present. Subjective Date/time seen: 10/25/24 12:37 Interval history: Reason for consult: Unresponsive episode after being given CBD drink by her son, acute respiratory failure requiring intubation : Patient seen and examined the ICU, remains intubated on CMV mode of ventilation, peep of 5, 28% FiO2. ABG showed respiratory acidosis and hypoxia. FiO2 was increased and ventilator was adjusted. Patient sedated with fentanyl and Versed infusion. Dropped her hemoglobin from 9.5 to 7.9. White count dropped from 14.2 to 9.2 this morning. Creatinine slightly increased to 2.97. Chest x-ray this morning shows worsening central congestive changes and patchy bilateral airspace disease, worsening pulmonary edema versus pneumonia. Review of Systems Review of Systems: ROS unobtainable: Yes unobtainable due to endotracheal tube, unobtainable due to medical condition and unobtainable due to mental status Exam Narrative: General: Elderly female currently intubated and sedated, in no acute distress HEENT:? Pupil are equal and reactive, sclerae is clear, ETT in place Neck:? Supple Respiratory:? Coarse breath sounds bilaterally worsened this morning, decreased at bases, no wheezing, adequate air entry otherwise Cardiac:? S1-S2 is normal, regular rate and rhythm Abdomen:? Soft, nontender, obese, hypoactive bowel sound, no tenderness to palpation Extremities:? No edema, palpable pedal pulse Neuro:? Patient is intubated, sedated, opens her eyes to name but does not follow simple commands. Skin:? Warm and dry, no skin lesions noted Psych:? Unable to assess at this time Objective Data Vital Signs Vital Signs: Vital Signs - 24 hr 10/24/24 14:00 10/24/24 14:00 10/24/24 14:00 Temperature Pulse Rate 65 69 71 Respiratory Rate 18 18 Blood Pressure Pulse Oximetry Oxygen Delivery Fraction of Inspired Oxygen 10/24/24 14:10/24/24 14:17 10/24/24 14:17 Temperature 98.9 F Pulse Rate 71 65 65 Respiratory Rate 19 18 Blood Pressure 116/50 L Pulse Oximetry 97 99 Oxygen Delivery Mechanical Ventilation Fraction of Inspired Oxygen 10/24/24 14:24 10/24/24 16:00 10/24/24 16:00 Temperature 98.9 F Pulse Rate 62 80 Respiratory Rate 18 18 Blood Pressure 114/47 L Pulse Oximetry 97 98 Oxygen Delivery Mechanical Ventilation Fraction of Inspired Oxygen 10/24/24 16:00 10/24/24 16:00 10/24/24 16:00 Temperature Pulse Rate 75 80 Respiratory Rate 18 Blood Pressure Pulse Oximetry Oxygen Delivery Fraction of Inspired Oxygen 28 10/24/24 16:42 10/24/24 18:00 10/24/24 18:00 Temperature 99.1 F Pulse Rate 77 77 75 Respiratory Rate 18 18 Blood Pressure 110/46 L Pulse Oximetry 97 97 Oxygen Delivery Mechanical Ventilation Fraction of Inspired Oxygen 28 10/24/24 18:00 10/24/24 20:00 10/24/24 20:00 Temperature Pulse Rate 75 84 85 Respiratory Rate 18 18 Blood Pressure Pulse Oximetry Oxygen Delivery Fraction of Inspired Oxygen 10/24/24 20:00 10/24/24 20:00 10/24/24 20:00 Temperature 99.4 F Pulse Rate 94 Respiratory Rate 18 Blood Pressure 126/49 L Pulse Oximetry 96 96 Oxygen Delivery Mechanical Ventilation Fraction of Inspired Oxygen 28 28 10/24/24 20:00 10/24/24 21:05 10/24/24 21:23 Temperature Pulse Rate 82 85 85 Respiratory Rate 18 Blood Pressure Pulse Oximetry 97 Oxygen Delivery Mechanical Ventilation Fraction of Inspired Oxygen 28 10/24/24 21:31 10/24/24 22:00 10/24/24 22:00 Temperature Pulse Rate 87 99 99 Respiratory Rate 18 18 18 Blood Pressure 128/47 L Pulse Oximetry 93 Oxygen Delivery Fraction of Inspired Oxygen 10/24/24 22:00 10/24/24 23:15 10/25/24 00:00 Temperature Pulse Rate 98 93 Respiratory Rate 18 Blood Pressure Pulse Oximetry 97 95 Oxygen Delivery Mechanical Ventilation Mechanical Ventilation Fraction of Inspired Oxygen 28 10/25/24 00:00 10/25/24 00:00 10/25/24 00:00 Temperature 99.4 F Pulse Rate 96 96 Respiratory Rate 18 18 Blood Pressure 130/49 L Pulse Oximetry 95 Oxygen Delivery Fraction of Inspired Oxygen 10/25/24 00:00 10/25/24 00:00 10/25/24 01:46 Temperature Pulse Rate 96 96 96 Respiratory Rate 18 18 Blood Pressure Pulse Oximetry Oxygen Delivery Fraction of Inspired Oxygen 10/25/24 01:46 10/25/24 02:00 10/25/24 02:00 Temperature Pulse Rate 96 98 92 Respiratory Rate 18 18 18 Blood Pressure 128/51 L Pulse Oximetry 95 Oxygen Delivery Fraction of Inspired Oxygen 10/25/24 02:00 10/25/24 02:02 10/25/24 02:02 Temperature Pulse Rate 92 94 94 Respiratory Rate 18 18 Blood Pressure Pulse Oximetry 96 Oxygen Delivery Mechanical Ventilation Fraction of Inspired Oxygen 28 10/25/24 02:10 10/25/24 04:00 10/25/24 04:00 Temperature Pulse Rate 92 Respiratory Rate 18 Blood Pressure Pulse Oximetry 97 Oxygen Delivery Mechanical Ventilation Fraction of Inspired Oxygen 28 28 10/25/24 04:00 10/25/24 04:00 10/25/24 04:00 Temperature 99.5 F Pulse Rate 100 100 100 Respiratory Rate 18 18 Blood Pressure 132/56 L Pulse Oximetry 97 Oxygen Delivery Fraction of Inspired Oxygen 10/25/24 04:00 10/25/24 05:40 10/25/24 06:00 Temperature Pulse Rate 100 104 H 98 Respiratory Rate 18 18 Blood Pressure 142/57 H Pulse Oximetry 96 95 Oxygen Delivery Mechanical Ventilation Fraction of Inspired Oxygen 28 10/25/24 06:00 10/25/24 06:00 10/25/24 08:00 Temperature Pulse Rate 98 98 95 Respiratory Rate 18 18 18 Blood Pressure Pulse Oximetry 95 Oxygen Delivery Mechanical Ventilation Fraction of Inspired Oxygen 40 10/25/24 08:00 10/25/24 08:00 10/25/24 08:00 Temperature 99 F Pulse Rate 95 95 Respiratory Rate 18 Blood Pressure 145/54 H Pulse Oximetry 95 Oxygen Delivery Fraction of Inspired Oxygen 40 10/25/24 08:00 10/25/24 08:00 10/25/24 08:18 Temperature Pulse Rate 99 99 95 Respiratory Rate 18 18 18 Blood Pressure Pulse Oximetry Oxygen Delivery Fraction of Inspired Oxygen 10/25/24 08:22 10/25/24 08:25 10/25/24 10:00 Temperature Pulse Rate 101 H 102 H 99 Respiratory Rate 18 Blood Pressure Pulse Oximetry 99 Oxygen Delivery Mechanical Ventilation Fraction of Inspired Oxygen 40 10/25/24 10:00 10/25/24 10:00 10/25/24 10:00 Temperature 99.2 F Pulse Rate 99 100 101 H Respiratory Rate 18 18 18 Blood Pressure 137/52 L Pulse Oximetry 99 Oxygen Delivery Fraction of Inspired Oxygen 10/25/24 10:58 10/25/24 12:00 10/25/24 12:00 Temperature Pulse Rate 102 H 93 93 Respiratory Rate 18 Blood Pressure Pulse Oximetry 97 98 Oxygen Delivery Mechanical Ventilation Mechanical Ventilation Fraction of Inspired Oxygen 40 40 10/25/24 12:00 10/25/24 12:00 10/25/24 12:00 Temperature 99.3 F Pulse Rate 93 93 Respiratory Rate 18 18 Blood Pressure 140/54 L Pulse Oximetry 98 Oxygen Delivery Fraction of Inspired Oxygen 40 10/25/24 12:00 Temperature Pulse Rate 93 Respiratory Rate 18 Blood Pressure Pulse Oximetry Oxygen Delivery Fraction of Inspired Oxygen Intake/Output Intake/Output: Intake & Output 10/22/24 10/23/24 10/24/24 10/25/24 23:59 23:59 23:59 23:59 Intake Total 3293.7 1343.0 Output Total 400 200 Balance 2893.7 1143.0 Meds/Results Medications: Active Medications Generic Name Dose Route Start Last Admin Trade Name Freq PRN Reason Stop Dose Admin Acetaminophen 650 mg 10/23/24 22:23 Acetaminophen 325 Mg Tablet PO Q4H PRN Mild Pain (1-3) or Fever Albuterol/Ipratropium 3 ml 10/24/24 14:00 10/25/24 08:17 Ipratropium 0.5 Mg/Albuterol Sulfate 2.5 Mg Ampul.Neb 3 Ml INHALATION 3 ml Q6HRT MP Administration Dextrose 12.5 gm 10/24/24 11:04 Dextrose 50% 25 Gm/50 Ml Syringe IV PUSH PRN PRN Hypoglycemia Protocol Enoxaparin Sodium 30 mg 10/24/24 09:00 10/24/24 09:51 Enoxaparin 30 Mg/0.3 Ml Syringe SUB-Q 30 mg DAILY MP Administration Glucagon 1 mg 10/24/24 11:04 Glucagon For Inj 1 Mg Vial IM PRN PRN Hypoglycemia Protocol Glucose 15 gm 10/24/24 11:04 Glucose Oral Gel 15 Gm Of Glucse In 37.5 Gm Tube PO PRN PRN Hypoglycemia Protocol Fentanyl Citrate 2,500 mcg in 250 mls @ 7.5 mls/hr 10/24/24 00:20 10/25/24 12:00 Fentanyl 2,500 Mcg/Ns 250 Ml IV CONT 75 mcg/hr .[id number] MP 7.5 mls/hr Titration Protocol 75 MCG/HR Midazolam HCl 100 mg in 100 mls @ 2 mls/hr 10/24/24 00:20 10/25/24 12:00 Versed 100 Mg/Ns 100 Ml IV CONT 2 mg/hr .Q50H MP 2 mls/hr Titration Protocol 2 MG/HR Cefepime HCl 1 gm in 50 mls @ 100 mls/hr 10/24/24 09:00 10/25/24 09:50 Maxipime 1 Gm/Ns 50 Ml IVPB Infused Q12H MP Infusion Albumin Human 100 mls @ 60 mls/hr 10/24/24 08:20 10/25/24 12:11 Albutein IVPB 10/25/24 23:59 60 mls/hr Q6HR MP Administration Lactated Ringer's 1,000 mls @ 50 mls/hr 10/24/24 08:40 10/25/24 08:00 Lr - Lactated Ringers Iv IV CONT 50 mls/hr .Q20H MP Infusion Metronidazole 500 mg in 100 mls @ 100 mls/hr 10/24/24 11:00 10/25/24 07:21 Flagyl 500 Mg/Iso Soln 100 Ml IVPB Infused Q8HR MP Infusion Dextrose 1,000 mls @ 100 mls/hr 10/24/24 11:04 Dextrose 5% 1,000 Ml IVPB PRN PRN Hypoglycemia Protocol Insulin Aspart 2 - 5 units 10/24/24 12:00 10/25/24 12:12 Insulin Aspart (*Bkc) 100 Units/Ml SUB-Q Not Given Q6HR MP Protocol Midazolam HCl 2 mg 10/23/24 22:23 Midazolam Hcl (*Crx) 2 Mg/2 Ml Vial IV PUSH Q4H PRN Agitation Multi-Ingred Cream/Lotion/Oil/Oint 1 applic 10/24/24 09:00 10/25/24 09:20 Mineral Oil/White Petrolatum Ointment EACH EYE 1 applic Q12HR MP Administration Pantoprazole Sodium 40 mg 10/24/24 21:00 10/25/24 09:20 Pantoprazole Sodium Iv 40 Mg Vial IV PUSH 40 mg Q12HR MP Administration Perflutren Lipid Microsphere 0 ml 10/24/24 08:14 Perflutren Lipid Microspheres 1.5 Ml Vial Diluted To 10 Ml Total Volume IV PUSH 10/27/24 08:14 ONCE PRN adequate visualization Protocol Sodium Chloride 20 ml 10/24/24 09:29 Central Line Flush IV PUSH PRN PRN after blood draws Sodium Chloride 10 ml 10/24/24 09:29 Central Line Flush IV PUSH PRN PRN with TPN bag changes Sodium Chloride 10 ml 10/24/24 14:00 10/25/24 04:34 Central Line Flush IV PUSH 10 ml Q8HR MP Administration Vancomycin HCl 1 each 10/23/24 23:22 Vancomycin For Acute Kidney Injury IVPB PRN PRN Vancomycin Protocol Radiology Results: ITS Impressions Head CT 10/23/24 21:39 Impression: No acute intracranial hemorrhage or suspicious mass effect. Chest/Abdomen/Pelvis CTA 10/23/24 21:44 IMPRESSION: No acute intra-abdominal findings to explain patient's presentation. Mural thickening and edema within the gastric cardia and cecum. Endotracheal tube tip is at the level of the chikis for which withdrawal of approximately 2 cm is suggested for optimal placement. Orogastric tube extends to the second portion of the duodenum, and tenting of the wall is demonstrated. Withdrawal of approximately 9 to 10 cm is recommended for optimal placement and to decrease the risk of perforation. Abdomen X-Ray 10/23/24 23:14 IMPRESSION: Orogastric tube in good position and ready for immediate use. Chest X-Ray 10/25/24 07:59 Impression: Worsening central congestive change and patchy bilateral airspace disease. Correlate for worsening pulmonary edema versus pneumonia. Minimal left pleural effusion. Support tubes, as above. Renal Ultrasound 10/25/24 11:26 IMPRESSION: 1. Bilateral medical renal disease with increased cortical echogenicity and mild cortical thinning at both kidneys. No hydronephrosis. 2. Bilateral renal cysts simple renal cysts as well as a likely benign minimally complex Bosniak 2 complex cystic lesion with a few very thin internal septations in the left kidney. Labs Labs: Laboratory Results - last 24 hr 10/24/24 10/24/24 10/25/24 12:35 18:31 00:01 WBC RBC Hgb Hct MCV MCH MCHC RDW Plt Count MPV Immature Gran % (Auto) Neut % (Auto) Lymph % (Auto) Graves % (Auto) Eos % (Auto) Baso % (Auto) Lymph # (Auto) Graves # (Auto) Eos # (Auto) Baso # (Auto) Abs Immat Gran (auto) Absolute Neuts (auto) Absolute Nucleated RBC Nucleated RBC % Puncture Site ABG pH ABG pCO2 ABG pO2 ABG PO2/FiO2 Ratio ABG HCO3 ABG O2 Saturation ABG O2 Content ABG Base Excess A-a Gradient Oxyhemoglobin Carboxyhemoglobin Methemoglobin Reduced Hemoglobin Total Hemoglobin O2 Delivery Device O2 Liters/Min Minute Volume Vent Rate Vent Mode FiO2 Tidal Volume PEEP Peak Inspir Pressure Pressure Support Sodium Potassium Chloride Carbon Dioxide Anion Gap BUN Creatinine Estim Creat Clear Calc Estimated GFR Glucose POC Capillary Glucose 92 96 Lactic Acid 2.2 H Calcium Phosphorus Magnesium Total Bilirubin AST ALT Alkaline Phosphatase Total Creatine Kinase Total Protein Albumin Urine Eosinophils U Random Total Protein Ur Random Sodium Ur Random Potassium Ur Random Urea Urine Creatinine Protein/Creat Ratio 2 Vancomycin Trough 10/25/24 10/25/24 10/25/24 03:19 05:19 08:09 WBC 9.2 RBC 2.56 L Hgb 7.9 L Hct 25.1 L MCV 98.0 MCH 30.9 MCHC 31.5 L RDW 14.0 Plt Count 149 L MPV 10.9 H Immature Gran % (Auto) 0.7 H Neut % (Auto) 82.0 H Lymph % (Auto) 9.5 L Graves % (Auto) 5.1 Eos % (Auto) 2.4 Baso % (Auto) 0.3 Lymph # (Auto) 0.87 L Graves # (Auto) 0.5 Eos # (Auto) 0.2 Baso # (Auto) 0.0 Abs Immat Gran (auto) 0.06 H Absolute Neuts (auto) 7.5 H Absolute Nucleated RBC 0.000 Nucleated RBC % 0.0 Puncture Site Left radial Left radial ABG pH 7.258 L* 7.317 L ABG pCO2 51.0 H 43.5 ABG pO2 55.2 L 57.1 L ABG PO2/FiO2 Ratio 1.97 2.04 ABG HCO3 22.3 21.8 L ABG O2 Saturation 83.7 L* 87.3 L* ABG O2 Content 10.6 L 10.5 L ABG Base Excess -4.7 -4.1 A-a Gradient 84.3 91.2 Oxyhemoglobin 86.5 L* 89.6 L Carboxyhemoglobin 0.7 Methemoglobin 0.0 Reduced Hemoglobin 12.8 H Total Hemoglobin 8.7 L 8.3 L O2 Delivery Device Ventilator Ventilator O2 Liters/Min Not Reportable Not Reportable Minute Volume Not Reportable Not Reportable Vent Rate 18 18 Vent Mode Cmv Cmv FiO2 28 28 Tidal Volume 350 350 PEEP 5 5 Peak Inspir Pressure Not Reportable Not Reportable Pressure Support Not Reportable Not Reportable Sodium 137 Potassium 4.3 Chloride 104 Carbon Dioxide 20 L Anion Gap 13 H BUN 51 H Creatinine 2.97 H Estim Creat Clear Calc 11 Estimated GFR 18 L Glucose 106 POC Capillary Glucose Lactic Acid Calcium 8.5 Phosphorus 5.8 H Magnesium 1.6 Total Bilirubin 0.6 AST 20 ALT 14 Alkaline Phosphatase 61 Total Creatine Kinase Total Protein 6.0 L Albumin 3.7 Urine Eosinophils U Random Total Protein Ur Random Sodium Ur Random Potassium Ur Random Urea Urine Creatinine Protein/Creat Ratio 2 Vancomycin Trough 8.3 L 10/25/24 10/25/24 10/25/24 08:34 09:47 09:48 WBC RBC Hgb Hct MCV MCH MCHC RDW Plt Count MPV Immature Gran % (Auto) Neut % (Auto) Lymph % (Auto) Graves % (Auto) Eos % (Auto) Baso % (Auto) Lymph # (Auto) Graves # (Auto) Eos # (Auto) Baso # (Auto) Abs Immat Gran (auto) Absolute Neuts (auto) Absolute Nucleated RBC Nucleated RBC % Puncture Site ABG pH ABG pCO2 ABG pO2 ABG PO2/FiO2 Ratio ABG HCO3 ABG O2 Saturation ABG O2 Content ABG Base Excess A-a Gradient Oxyhemoglobin Carboxyhemoglobin Methemoglobin Reduced Hemoglobin Total Hemoglobin O2 Delivery Device O2 Liters/Min Minute Volume Vent Rate Vent Mode FiO2 Tidal Volume PEEP Peak Inspir Pressure Pressure Support Sodium Potassium Chloride Carbon Dioxide Anion Gap BUN Creatinine Estim Creat Clear Calc Estimated GFR Glucose POC Capillary Glucose Lactic Acid Calcium Phosphorus Magnesium Total Bilirubin AST ALT Alkaline Phosphatase Total Creatine Kinase 289 H Total Protein Albumin Urine Eosinophils None seen U Random Total Protein Ur Random Sodium 63 Ur Random Potassium 25.7 Ur Random Urea Urine Creatinine 56.2 Protein/Creat Ratio 2 Vancomycin Trough 10/25/24 10/25/24 10/25/24 11:15 11:15 11:55 WBC RBC Hgb Hct MCV MCH MCHC RDW Plt Count MPV Immature Gran % (Auto) Neut % (Auto) Lymph % (Auto) Graves % (Auto) Eos % (Auto) Baso % (Auto) Lymph # (Auto) Graves # (Auto) Eos # (Auto) Baso # (Auto) Abs Immat Gran (auto) Absolute Neuts (auto) Absolute Nucleated RBC Nucleated RBC % Puncture Site ABG pH ABG pCO2 ABG pO2 ABG PO2/FiO2 Ratio ABG HCO3 ABG O2 Saturation ABG O2 Content ABG Base Excess A-a Gradient Oxyhemoglobin Carboxyhemoglobin Methemoglobin Reduced Hemoglobin Total Hemoglobin O2 Delivery Device O2 Liters/Min Minute Volume Vent Rate Vent Mode FiO2 Tidal Volume PEEP Peak Inspir Pressure Pressure Support Sodium Potassium Chloride Carbon Dioxide Anion Gap BUN Creatinine Estim Creat Clear Calc Estimated GFR Glucose POC Capillary Glucose 114 H Lactic Acid Calcium Phosphorus Magnesium Total Bilirubin AST ALT Alkaline Phosphatase Total Creatine Kinase Total Protein Albumin Urine Eosinophils U Random Total Protein 407 406 Ur Random Sodium Ur Random Potassium Ur Random Urea 379 Urine Creatinine 82.3 Protein/Creat Ratio 2 4.95 H Vancomycin Trough Quality VTE Prophylaxis VTE prophylaxis: mechanical ordered
[2024-10-25] MEDS: DOXYCYCLINE 100 MG/NS 100 ML 100 MG/100 ML BAG IVPB ×2 (13:24→20:04)
[2024-10-25] MEDS: MIDAZOLAM 100MG/NS 100ML(*CRX) 100 MG/100 ML BAG IV CONT (15:49)
[2024-10-25] MEDS: SENNA/DOCUSATE SODIUM TABLET 1 TAB PO (20:05)
[2024-10-26] VITALS (28 sets, daily range): BP systolic 140–175; BP diastolic 48–67; PULSE 88–107; RESP 15–33; TEMP 37.2–38; O2SAT 95–98
[2024-10-26 00:15] LABS: Glucose Point of Care 140 mg/dl (65-105)
[2024-10-26] MEDS: IPRATROPIUM 0.5 MG/ALBUTEROL SULFATE 2.5 MG AMPUL.NEB 3 ML INHALATION ×4 (01:56→21:11)
[2024-10-26 04:44] LABS: Base Excess ABG -3.3 mEq/l (+/-2.0); Carboxyhemoglobin 0.1 % THb (0-2.0); Fractional Inspired Oxygen 30 %; HCO3 ABG 22.2 mEq/l (22.0-26.0); Methemoglobin ABG 0.2 %THb (0-1.5); Oxygen Content ABG 10.7 %vol (16.0-22.0); Oxygen Saturation ABG 91.8 % (95.0-100.0); Oxyhemoglobin 93.6 % THb (90.0-100.0); PO2 ABG 65.6 mmHg (80.0-100.0); PO2 FiO2 Ratio Arterial Blood 2.19 %; Reduced Hemoglobin 6.1 %THb (0-5.0); Total Hemoglobin 8.1 g/dL (12.0-18.0); pH ABG 7.341 (7.350-7.450)
[2024-10-26] MEDS: CENTRAL LINE FLUSH 10 ML IV PUSH ×3 (05:22→21:06)
[2024-10-26] MEDS: metroNIDAZOLE 500 MG/ISO 100ML 500 MG/100 ML BAG 100 MG IVPB ×3 (05:51→21:05)
[2024-10-26 06:37] LABS: Basophils Percent Auto 0.3 % (0.2-1.2); Eosinophils Absolute Auto 0.2 K/mm3 (0-0.3); Eosinophils Percent Auto 2.7 % (0-4.4); Hemoglobin 7.4 g/dL (12.0-15.0); Immature Granulocyte Absolute 0.06 K/mm3 (0.00-0.031); Immature Granulocyte Percent A 0.8 % (0-0.5); Lymphocytes Absolute Auto 0.52 K/mm3 (0.9-3.2); Lymphocytes Percent Auto 7.3 % (18.3-44.2); Mean Corpuscular HGB Conc 30.8 g/dl (32-36); Mean Corpuscular Hemoglobin 30.5 pg (26-34); Mean Corpuscular Volume 98.8 fl (80-100); Mean Platelet Volume 10.5 fl (7.4-10.4); Monocytes Absolute Auto 0.5 K/mm3 (0.1-0.6); Monocytes Percent Auto 7.4 % (2.6-8.5); Neutrophils Absolute Auto 5.8 K/mm3 (1.3-6.7); Neutrophils Percent Auto 81.5 % (45.5-73.1); Platelet Count Result 118 k/mm3 (150-375); Red Blood Count 2.43 M/mm3 (4.2-5.4); Red Cell Distribution Width 13.8 % (11.5-14.5); White Blood Count 7.1 K/mm3 (4.5-10.0)
[2024-10-26 06:44] LABS: Alanine Aminotransferase 10 U/L (6-35); Albumin Level 3.7 g/dL (3.5-5.1); Alkaline Phosphatase 59 U/L (38-126); Anion Gap 14 mmol/L (4-12); Aspartate Amino Transferase 16 U/L (14-36); Bilirubin,Total 0.5 mg/dL (0.2-1.3); Blood Urea Nitrogen 50 mg/dL (7-17); Calcium 8.4 mg/dL (8.4-10.2); Carbon Dioxide 19 mmol/L (22-30); Chloride 106 mmol/L (98-107); Estimated CRCL calculation 11 ml/min; Estimated Glomerular Filt Rate 17; Glucose 122 mg/dL (65-110); Magnesium 1.7 mg/dL (1.6-2.3); Phosphorus 4.2 mg/dL (2.5-4.5); Potassium 4.1 mmol/L (3.4-5.0); Sodium 139 mmol/L (137-145)
[2024-10-26 06:50] LABS: Vancomycin Trough 14.3 ug/mL (10.0-20.0)
[2024-10-26 07:03] LABS: Arterial Blood Gas PEEP 5 cmH2O; Arterial Blood Gas Tidal Volume 400 ml; Arterial Blood Gas Vent Mode CMV; Arterial Blood Gas Ventilator rate 18 /MIN; Device VENTILATOR; Modified Allen's Test Pass; Site Drawn RIGHT RADIAL
[2024-10-26] MEDS: VANCOMYCIN 1,000 MG/NS 250 ML 1,000 MG/250 ML BAG 250 MG IVPB (08:27)
[2024-10-26] MEDS: PANTOPRAZOLE SODIUM IV 40 MG VIAL IV PUSH ×2 (08:58→20:27)
[2024-10-26] MEDS: MINERAL OIL/WHITE PETROLATUM OINTMENT 1 APPLIC EACH EYE ×2 (08:58→20:28)
[2024-10-26] MEDS: CEFEPIME 1 GM/NS 50 ML 1 GM/50 ML BAG IVPB ×2 (08:58→20:27)
[2024-10-26] MEDS: DOXYCYCLINE 100 MG/NS 100 ML 100 MG/100 ML BAG IVPB ×2 (08:59→20:28)
--- NOTE | 2024-10-26 11:31 | PCNFU ---
Nutrition Follow-Up Complete: Suboptimal nutrition as related to mechanical vent as evidenced by NPO. Goal: Meet estimated nutritional needs. Patient is progressing towards goal. We will continue current goal. Pt current nutrition is Vital AF 1.2 at 50 ml/hr Last recorded weight is 56.5 kg, up from 54.4 kg on admit . Bowel Motility: No BM reported. Labs Reviewed:Glu 122, BUN 50, GFR 17, Cr 3.21 Meds Noted:Fentanyl, Versed, Lovenox, Vancomycin, Protonix, Flagyl Skin:WNL Additional Notes: Patient remains on mechanical vent. Tube feedings are at goal rate of 50 ml/hr of Vital AF 1.2. Total Nutrition: 1320 kcal/83 gm protein/892 ml water. Meeting 95% kcal needs at 25 kcal/kg and 100% protein needs at 1.2-1.4 gm/kg. Flush 30 ml q 4 hours. Agree with diet orders. Will monitor in ICU rounds and reassess weight, labs, skin, diet orders, meds every Tuesday and Tuesday.
--- NOTE | 2024-10-26 11:42 | WPDINTPN ---
Progress Note: A&P Assessment and Plan (1) Altered mental status: Qualifiers: Altered mental status type: unspecified Qualified Code(s): R41.82 - Altered mental status, unspecified Code(s): R41.82 - Altered mental status, unspecified Status: Acute Assessment and Plan: Patient was found unresponsive at home by her son, 3 hours after he gave her a CBD drink to calm her anxiety. Patient did have emesis at home, unknown if she had lost a pulse. Upon EMS arrival she did have a pulse but was difficult to intubate so laryngeal airway was placed, patient brought to ED which she was intubated. -urine drug screen was positive for benzodiazepines and cannabis which could possibly could have caused altered mental status. -patient given IV fluids, will monitor urine output to see if she can excrete these medications -adequately fluid-resuscitated, discontinue maintenance IV fluids 10/23/2024: -CT brain with no acute intracranial hemorrhage or suspicious mass effect (2) Respiratory failure requiring intubation: Code(s): J96.90 - Respiratory failure, unspecified, unspecified whether with hypoxia or hypercapnia Status: Acute Assessment and Plan: Patient was unresponsive at home, had emesis. Failed intubation on side by EMS, laryngeal airway was inserted -10/23: Intubated upon arrival to the ER for airway protection and possible aspiration -currently on CMV mode of ventilation, peep of 5, 28% FiO2, -ABG showed respiratory acidosis, increased tidal volume and FiO2 -chest x-ray this morning showed: Worsening central congestive change and patchy bilateral airspace disease. Correlate for worsening pulmonary edema versus pneumonia. -given history of asthma and COPD, continue bronchodilators -sedated with fentanyl and Versed infusion, maintain RASS of 0 to -2, daily SBT and SAT -about the bedside RN to start sedation weaning protocol -once more awake patient replaced on pressure support ventilation and evaluate for for extubation 10/23/2024: -CTA chest abdomen and pelvis: No acute intra-abdominal findings to explain patient's presentation. Mural thickening and edema within the gastric cardia and cecum. Endotracheal tube tip is at the level of the chikis for which withdrawal of approximately 2 cm is suggested for optimal placement. Orogastric tube extends to the second portion of the duodenum, and tenting of the wall is demonstrated. Withdrawal of approximately 9 to 10 cm is recommended for optimal placement and to decrease the risk of perforation. (3) Sepsis: Code(s): A41.9 - Sepsis, unspecified organism Status: Acute Assessment and Plan: Elevated lactic acidosis, hypotension,, respiratory failure, altered mental status -lactic acid trending down adequate IV fluid -according the son patient has not been taking adequate oral intake, liquids as well as solids for the last 2-3 weeks -could be hypovolemia secondary to decreased oral intake -there is a history of CHF, chest x-ray was clear, given adequate amount of IV fluid -further intravascular volume expansion with albumin -blood pressures remain stable at this time, continue to monitor -patient does have a PICC line which was placed on 10/24/2024 -continue cefepime and vancomycin (10/23) -continue doxycycline (10/25) -10/23: Preliminary blood cultures are negative 10/24/2024: Echocardiogram Summary 1. Complete two-dimensional, color flow and Doppler transthoracic echocardiogram is performed. 2. There is normal biventricular size and systolic function. 3. There is no significant valvular disease. 4. The atrial septum appears aneurysmal however there is no [id number] shunt by agitated saline study. (4) Aspiration pneumonia: Code(s): J69.0 - Pneumonitis due to inhalation of food and vomit Status: Acute Assessment and Plan: Pt had emesis at home, possible aspiration pneumonitis/pneumonia 10/25: CXR: Worsening central congestive change and patchy bilateral airspace disease. Correlate for worsening pulmonary edema versus pneumonia -continue antibiotics as above (5) Positive urine drug screen: Code(s): R82.5 - Elevated urine levels of drugs, medicaments and biological substances Status: Acute Assessment and Plan: Urine drug screen was positive for cannabinoids and benzodiazepine (6) Hypoglycemia: Code(s): E16.2 - Hypoglycemia, unspecified Status: Acute Assessment and Plan: Patient has a history of type 2 diabetes, was hypoglycemic when EMS arrived, received dextrose -blood sugars have been stable -continue Accu-Cheks and sliding scale insulin (7) Chronic kidney disease, stage 4 (severe): Code(s): N18.4 - Chronic kidney disease, stage 4 (severe) Status: Chronic Assessment and Plan: Acute on chronic kidney disease stage IV, creatinine was at baseline on admission, -patient has been adequately fluid-resuscitated, added albumin for further intravascular volume repletion -10/25: Elevated creatinine, patient also received contrast on admission, could be related to contrast induced nephropathy, sepsis -10/25: Renal ultrasound showed bilateral medical renal disease, bilateral renal cysts, no hydronephrosis or stones. -urine lytes was not prerenal, negative urine eosinophils, CK levels 289 -appreciate Nephrology evaluation and recommendations -continue monitor urine output, renal function and electrolytes (8) HTN (hypertension): Code(s): I10 - Essential (primary) hypertension Status: Acute Assessment and Plan: History of essential hypertension, currently blood pressures are borderline, will hold all antihypertensives for now (9) Diabetes: Code(s): E11.9 - Type 2 diabetes mellitus without complications Status: Chronic Assessment and Plan: Accu-Cheks and sliding scale insulin Plan DVT prophylaxis: SCDs, hold chemoprophylaxis due to coffee-ground drainage in the OG tube, anemia Stress ulcer prophylaxis: Protonix IV q.12 hours Nutrition: Will increase tube feeds to goal, will add p.r.n. MiraLax and senna S Code Status: Full code Critical Care Time Spent: 33 minutes Discussed with Jean-Paul and updated with patient's condition and plan of care. He is aware that he will be coming down under sedation and evaluate for extubation after placing her on insert stress Discussed with patient's sons x2. Updated them with patient's condition and plan of care. I answered all the questions. They are aware that patient's kidney functions have worsened, also that her chest x-ray worsened be related to aspiration pneumonia night as/pneumonia. They are aware that she is on antibiotics, mechanical ventilation. Due to a high probability of clinically significant, life threatening deterioration, the patient required my highest level of preparedness to intervene emergently and I personally spent this critical care time directly and personally managing the patient. This critical care time included obtaining a history; examining the patient; pulse oximetry; ordering and review of studies; arranging urgent treatment with development of a management plan; evaluation of patient's response to treatment; frequent reassessment; and discussions with other providers. It was exclusive of separately billable procedures and treating other patients and teaching time. Please see Assessment and Plan section and the rest of the note for further information on patient assessment and treatment This dictation may have been done utilizing a voice recognition system. Attempts have been made to correct errors. However, there may be uncorrected grammatical, spelling, and recognitions errors present. Subjective Date/time seen: 10/26/24 11:42 Interval history: Reason for consult: Unresponsive episode after being given CBD drink by her son, acute respiratory failure requiring intubation 10/26/2024: Patient seen and examined the ICU, remains intubated on CMV mode of ventilation, peep of 5, 30% FiO2. Sedated with fentanyl and Versed infusion, is not open her eyes or follows simple commands. Urine output has been adequate. Tolerating tube feeds. Hemodynamically stable. Remains off Levophed. Hemoglobin continues to drop to 7.4 this morning. Review of Systems Review of Systems: ROS unobtainable: Yes unobtainable due to endotracheal tube, unobtainable due to medical condition and unobtainable due to mental status Exam Narrative: General: Elderly female currently intubated and sedated, in no acute distress HEENT:? Pupil are equal and reactive, sclerae is clear, ETT in place Neck:? Supple Respiratory:? Coarse breath sounds bilaterally worsened this morning, decreased at bases, no wheezing, adequate air entry otherwise Cardiac:? S1-S2 is normal, regular rate and rhythm Abdomen:? Soft, nontender, obese, hypoactive bowel sound, no tenderness to palpation Extremities:? No edema, palpable pedal pulse Neuro:? Patient is intubated, sedated, opens her eyes to name but does not follow simple commands. Skin:? Warm and dry, no skin lesions noted Psych:? Unable to assess at this time Objective Data Vital Signs Vital Signs: Vital Signs - 24 hr 10/25/24 12:00 10/25/24 12:00 10/25/24 12:00 Temperature Pulse Rate 93 93 Respiratory Rate 18 Blood Pressure Pulse Oximetry 98 Oxygen Delivery Mechanical Ventilation Fraction of Inspired Oxygen 40 40 10/25/24 12:00 10/25/24 12:00 10/25/24 12:00 Temperature 99.3 F Pulse Rate 93 93 93 Respiratory Rate 18 18 18 Blood Pressure 140/54 L Pulse Oximetry 98 Oxygen Delivery Fraction of Inspired Oxygen 10/25/24 14:00 10/25/24 14:00 10/25/24 14:00 Temperature Pulse Rate 90 90 97 Respiratory Rate 27 H 27 H Blood Pressure Pulse Oximetry Oxygen Delivery Fraction of Inspired Oxygen 10/25/24 14:00 10/25/24 15:07 10/25/24 15:08 Temperature 99.5 F Pulse Rate 97 105 H 101 H Respiratory Rate 26 H 18 Blood Pressure 151/60 H Pulse Oximetry 98 99 Oxygen Delivery Mechanical Ventilation Fraction of Inspired Oxygen 40 10/25/24 15:49 10/25/24 15:49 10/25/24 16:00 Temperature Pulse Rate 103 H 103 H 89 Respiratory Rate 18 18 26 H Blood Pressure Pulse Oximetry Oxygen Delivery Fraction of Inspired Oxygen 10/25/24 16:00 10/25/24 16:00 10/25/24 16:00 Temperature Pulse Rate 89 93 93 Respiratory Rate 26 H 18 Blood Pressure Pulse Oximetry 98 Oxygen Delivery Mechanical Ventilation Fraction of Inspired Oxygen 40 10/25/24 16:00 10/25/24 16:00 10/25/24 17:19 Temperature 99.5 F Pulse Rate 102 H 109 H Respiratory Rate 18 Blood Pressure 136/52 L Pulse Oximetry 99 98 Oxygen Delivery Mechanical Ventilation Fraction of Inspired Oxygen 40 40 10/25/24 18:00 10/25/24 18:00 10/25/24 18:00 Temperature 100.3 F H Pulse Rate 101 H 101 H 80 Respiratory Rate 18 18 Blood Pressure 143/55 H Pulse Oximetry 98 Oxygen Delivery Fraction of Inspired Oxygen 10/25/24 18:00 10/25/24 19:19 10/25/24 19:19 Temperature Pulse Rate 100 101 H 101 H Respiratory Rate 18 18 Blood Pressure Pulse Oximetry 98 Oxygen Delivery Mechanical Ventilation Fraction of Inspired Oxygen 40 10/25/24 20:00 10/25/24 20:00 10/25/24 20:00 Temperature Pulse Rate 106 H Respiratory Rate 18 18 Blood Pressure Pulse Oximetry 98 Oxygen Delivery Mechanical Ventilation Fraction of Inspired Oxygen 40 40 10/25/24 20:00 10/25/24 20:00 10/25/24 20:09 Temperature Pulse Rate 106 H 107 H 108 H Respiratory Rate 18 18 Blood Pressure Pulse Oximetry Oxygen Delivery Fraction of Inspired Oxygen 10/25/24 20:32 10/25/24 22:00 10/25/24 22:00 Temperature 100.1 F H Pulse Rate 106 H 108 H 108 H Respiratory Rate 18 15 15 Blood Pressure 145/52 H Pulse Oximetry 99 Oxygen Delivery Fraction of Inspired Oxygen 10/25/24 22:08 10/25/24 22:41 10/26/24 00:00 Temperature 100.2 F H Pulse Rate 108 H 104 H 104 H Respiratory Rate 15 15 Blood Pressure 118/65 Pulse Oximetry 97 97 Oxygen Delivery Mechanical Ventilation Fraction of Inspired Oxygen 40 10/26/24 00:00 10/26/24 00:00 10/26/24 00:00 Temperature Pulse Rate 104 H Respiratory Rate 15 Blood Pressure Pulse Oximetry 98 Oxygen Delivery Mechanical Ventilation Fraction of Inspired Oxygen 40 40 10/26/24 00:00 10/26/24 00:00 10/26/24 01:56 Temperature 100.4 F H Pulse Rate 100 100 99 Respiratory Rate 24 H Blood Pressure 142/54 H Pulse Oximetry 98 98 Oxygen Delivery Mechanical Ventilation Fraction of Inspired Oxygen 40 10/26/24 01:56 10/26/24 02:00 10/26/24 02:00 Temperature Pulse Rate 99 102 H 102 H Respiratory Rate 19 18 18 Blood Pressure 140/50 L Pulse Oximetry 96 Oxygen Delivery Fraction of Inspired Oxygen 10/26/24 02:00 10/26/24 02:18 10/26/24 02:18 Temperature Pulse Rate 102 H 102 H Respiratory Rate 18 18 Blood Pressure Pulse Oximetry 96 Oxygen Delivery Mechanical Ventilation Fraction of Inspired Oxygen 30 10/26/24 04:00 10/26/24 04:00 10/26/24 04:00 Temperature 99.6 F Pulse Rate 99 Respiratory Rate 18 Blood Pressure 175/67 H Pulse Oximetry 95 95 Oxygen Delivery Mechanical Ventilation Fraction of Inspired Oxygen 30 40 10/26/24 04:00 10/26/24 04:00 10/26/24 05:00 Temperature Pulse Rate 99 99 Respiratory Rate 18 18 Blood Pressure Pulse Oximetry 98 Oxygen Delivery Mechanical Ventilation Fraction of Inspired Oxygen 30 10/26/24 06:00 10/26/24 06:00 10/26/24 06:00 Temperature Pulse Rate 91 90 90 Respiratory Rate 18 18 Blood Pressure 144/48 H Pulse Oximetry 96 Oxygen Delivery Fraction of Inspired Oxygen 10/26/24 06:00 10/26/24 08:00 10/26/24 08:00 Temperature 99.3 F Pulse Rate 90 88 89 Respiratory Rate 18 18 18 Blood Pressure 151/50 H Pulse Oximetry 96 96 Oxygen Delivery Mechanical Ventilation Fraction of Inspired Oxygen 30 10/26/24 08:00 10/26/24 08:00 10/26/24 08:00 Temperature Pulse Rate 89 88 Respiratory Rate 18 Blood Pressure Pulse Oximetry Oxygen Delivery Fraction of Inspired Oxygen 30 10/26/24 08:00 10/26/24 08:57 10/26/24 09:02 Temperature Pulse Rate 88 88 88 Respiratory Rate 18 18 Blood Pressure Pulse Oximetry 96 Oxygen Delivery Mechanical Ventilation Fraction of Inspired Oxygen 30 10/26/24 09:30 10/26/24 10:00 10/26/24 10:00 Temperature Pulse Rate 99 96 95 Respiratory Rate 18 18 18 Blood Pressure Pulse Oximetry Oxygen Delivery Fraction of Inspired Oxygen 10/26/24 10:00 10/26/24 10:00 10/26/24 10:30 Temperature 98.9 F Pulse Rate 95 97 93 Respiratory Rate 18 18 Blood Pressure 142/65 H Pulse Oximetry 97 Oxygen Delivery Fraction of Inspired Oxygen 10/26/24 10:30 10/26/24 11:22 Temperature Pulse Rate 93 95 Respiratory Rate 18 Blood Pressure Pulse Oximetry 96 Oxygen Delivery Mechanical Ventilation Fraction of Inspired Oxygen 30 Intake/Output Intake/Output: Intake & Output 10/23/24 10/24/24 10/25/24 10/26/24 23:59 23:59 23:59 23:59 Intake Total 3293.7 2583.0 357.6 Output Total 400 650 600 Balance 2893.7 1933.0 -242.4 Meds/Results Medications: Active Medications Generic Name Dose Route Start Last Admin Trade Name Freq PRN Reason Stop Dose Admin Acetaminophen 650 mg 10/23/24 22:23 Acetaminophen 325 Mg Tablet PO Q4H PRN Mild Pain (1-3) or Fever Albuterol/Ipratropium 3 ml 10/24/24 14:00 10/26/24 08:57 Ipratropium 0.5 Mg/Albuterol Sulfate 2.5 Mg Ampul.Neb 3 Ml INHALATION 3 ml Q6HRT MP Administration Dextrose 12.5 gm 10/24/24 11:04 Dextrose 50% 25 Gm/50 Ml Syringe IV PUSH PRN PRN Hypoglycemia Protocol Enoxaparin Sodium 30 mg 10/24/24 09:00 10/24/24 09:51 Enoxaparin 30 Mg/0.3 Ml Syringe SUB-Q 30 mg DAILY MP Administration Glucagon 1 mg 10/24/24 11:04 Glucagon For Inj 1 Mg Vial IM PRN PRN Hypoglycemia Protocol Glucose 15 gm 10/24/24 11:04 Glucose Oral Gel 15 Gm Of Glucse In 37.5 Gm Tube PO PRN PRN Hypoglycemia Protocol Fentanyl Citrate 2,500 mcg in 250 mls @ 0 mls/hr 10/24/24 00:20 10/26/24 10:30 Fentanyl 2,500 Mcg/Ns 250 Ml IV CONT 0 mcg/hr .Q0M MP 0 mls/hr Titration Protocol Midazolam HCl 100 mg in 100 mls @ 0 mls/hr 10/24/24 00:20 10/26/24 10:30 Versed 100 Mg/Ns 100 Ml IV CONT 0 mg/hr .Q0M MP 0 mls/hr Titration Protocol Cefepime HCl 1 gm in 50 mls @ 100 mls/hr 10/24/24 09:00 10/26/24 09:28 Maxipime 1 Gm/Ns 50 Ml IVPB Infused Q12H MP Infusion Metronidazole 500 mg in 100 mls @ 100 mls/hr 10/24/24 11:00 10/26/24 07:10 Flagyl 500 Mg/Iso Soln 100 Ml IVPB Infused Q8HR MP Infusion Dextrose 1,000 mls @ 100 mls/hr 10/24/24 11:04 Dextrose 5% 1,000 Ml IVPB PRN PRN Hypoglycemia Protocol Doxycycline Hyclate 100 mg in 100 mls @ 100 mls/hr 10/25/24 13:15 10/26/24 10:00 Vibramycin 100 Mg/Ns 100 Ml IVPB Infused Q12HR MP Infusion Midazolam HCl 2 mg 10/23/24 22:23 Midazolam Hcl (*Crx) 2 Mg/2 Ml Vial IV PUSH Q4H PRN Agitation Multi-Ingred Cream/Lotion/Oil/Oint 1 applic 10/24/24 09:00 10/26/24 08:58 Mineral Oil/White Petrolatum Ointment EACH EYE 1 applic Q12HR MP Administration Pantoprazole Sodium 40 mg 10/24/24 21:00 10/26/24 08:58 Pantoprazole Sodium Iv 40 Mg Vial IV PUSH 40 mg Q12HR MP Administration Perflutren Lipid Microsphere 0 ml 10/24/24 08:14 Perflutren Lipid Microspheres 1.5 Ml Vial Diluted To 10 Ml Total Volume IV PUSH 10/27/24 08:14 ONCE PRN adequate visualization Protocol Polyethylene Glycol 17 gm 10/25/24 13:18 Polyethylene Glycol 3350 17 Gm Powd.Pack PO QAM PRN Constipation Senna/Docusate Sodium 1 tab 02/13/25 21:00 10/25/24 20:05 Senna/Docusate Sodium Tablet PO 1 tab HS MP Administration Sodium Chloride 20 ml 10/24/24 09:29 Central Line Flush IV PUSH PRN PRN after blood draws Sodium Chloride 10 ml 10/24/24 09:29 Central Line Flush IV PUSH PRN PRN with TPN bag changes Sodium Chloride 10 ml 10/24/24 14:00 10/26/24 05:22 Central Line Flush IV PUSH 10 ml Q8HR MP Administration Vancomycin HCl 1 each 10/23/24 23:22 Vancomycin For Acute Kidney Injury IVPB PRN PRN Vancomycin Protocol Radiology Results: ITS Impressions Head CT 10/23/24 21:39 Impression: No acute intracranial hemorrhage or suspicious mass effect. Chest/Abdomen/Pelvis CTA 10/23/24 21:44 IMPRESSION: No acute intra-abdominal findings to explain patient's presentation. Mural thickening and edema within the gastric cardia and cecum. Endotracheal tube tip is at the level of the chikis for which withdrawal of approximately 2 cm is suggested for optimal placement. Orogastric tube extends to the second portion of the duodenum, and tenting of the wall is demonstrated. Withdrawal of approximately 9 to 10 cm is recommended for optimal placement and to decrease the risk of perforation. Abdomen X-Ray 10/23/24 23:14 IMPRESSION: Orogastric tube in good position and ready for immediate use. Renal Ultrasound 10/25/24 11:26 IMPRESSION: 1. Bilateral medical renal disease with increased cortical echogenicity and mild cortical thinning at both kidneys. No hydronephrosis. 2. Bilateral renal cysts simple renal cysts as well as a likely benign minimally complex Bosniak 2 complex cystic lesion with a few very thin internal septations in the left kidney. Chest X-Ray 10/26/24 06:31 IMPRESSION: 1. Stable diffuse lung disease, likely a combination of mild pulmonary edema and atelectasis versus pneumonia. 2. Cardiomegaly. Labs Labs: Laboratory Results - last 24 hr 10/25/24 10/25/24 10/25/24 11:15 11:15 11:55 WBC RBC Hgb Hct MCV MCH MCHC RDW Plt Count MPV Immature Gran % (Auto) Neut % (Auto) Lymph % (Auto) [place] % (Auto) Eos % (Auto) Baso % (Auto) Lymph # (Auto) [place] # (Auto) Eos # (Auto) Baso # (Auto) Abs Immat Gran (auto) Absolute Neuts (auto) Absolute Nucleated RBC Nucleated RBC % Puncture Site ABG pH ABG pCO2 ABG pO2 ABG PO2/FiO2 Ratio ABG HCO3 ABG O2 Saturation ABG O2 Content ABG Base Excess A-a Gradient Oxyhemoglobin Carboxyhemoglobin Methemoglobin Reduced Hemoglobin Total Hemoglobin O2 Delivery Device O2 Liters/Min Minute Volume Vent Rate Vent Mode FiO2 Tidal Volume PEEP Peak Inspir Pressure Pressure Support Sodium Potassium Chloride Carbon Dioxide Anion Gap BUN Creatinine Estim Creat Clear Calc Estimated GFR Glucose POC Capillary Glucose 114 H Calcium Phosphorus Magnesium Total Bilirubin AST ALT Alkaline Phosphatase Total Protein Albumin U Random Total Protein 407 406 Ur Random Urea 379 Protein/Creat Ratio 2 4.95 H Vancomycin Trough 10/26/24 10/26/24 10/26/24 00:05 04:31 06:21 WBC 7.1 RBC 2.43 L Hgb 7.4 L Hct 24.0 L MCV 98.8 MCH 30.5 MCHC 30.8 L RDW 13.8 Plt Count 118 L MPV 10.5 H Immature Gran % (Auto) 0.8 H Neut % (Auto) 81.5 H Lymph % (Auto) 7.3 L [place] % (Auto) 7.4 Eos % (Auto) 2.7 Baso % (Auto) 0.3 Lymph # (Auto) 0.52 L [place] # (Auto) 0.5 Eos # (Auto) 0.2 Baso # (Auto) 0.0 Abs Immat Gran (auto) 0.06 H Absolute Neuts (auto) 5.8 Absolute Nucleated RBC 0.000 Nucleated RBC % 0.0 Puncture Site Right radial ABG pH 7.341 L ABG pCO2 42.0 ABG pO2 65.6 L ABG PO2/FiO2 Ratio 2.19 ABG HCO3 22.2 ABG O2 Saturation 91.8 L ABG O2 Content 10.7 L ABG Base Excess -3.3 A-a Gradient 99.0 Oxyhemoglobin 93.6 Carboxyhemoglobin 0.1 Methemoglobin 0.2 Reduced Hemoglobin 6.1 H Total Hemoglobin 8.1 L O2 Delivery Device Ventilator O2 Liters/Min Not Reportable Minute Volume Not Reportable Vent Rate 18 Vent Mode Cmv FiO2 30 Tidal Volume 400 PEEP 5 Peak Inspir Pressure Not Reportable Pressure Support Not Reportable Sodium 139 Potassium 4.1 Chloride 106 Carbon Dioxide 19 L Anion Gap 14 H BUN 50 H Creatinine 3.21 H Estim Creat Clear Calc 11 Estimated GFR 17 L Glucose 122 H POC Capillary Glucose 140 H Calcium 8.4 Phosphorus 4.2 Magnesium 1.7 Total Bilirubin 0.5 AST 16 ALT 10 Alkaline Phosphatase 59 Total Protein 6.0 L Albumin 3.7 U Random Total Protein Ur Random Urea Protein/Creat Ratio 2 Vancomycin Trough 14.3 Quality VTE Prophylaxis VTE prophylaxis: mechanical ordered
--- NOTE | 2024-10-26 11:55 | P.PNNP_ITS ---
Progress Note: A&P Assessment and Plan (1) SOLOMON (acute kidney injury): Code(s): N17.9 - Acute kidney failure, unspecified Status: Acute Assessment and Plan: * at baseline on admission with worsening noted on 10/25 * suspect multifactorial etiology: * infection/sepsis (aspiration pneumonia) * hypoxia * contrast exposure (CTA C/A/P on 10/23/24) * relative hypotension on admission * diuretic use prior to admission * other(?) * evaluation to date noted: * renal u/s consistent with CKD with no acute issues * urine electrolytes prerenal (by FeUrea) * urine eosinophils negative * proteinuria noted * CPK mildly elevated but not enough to affect kidney function * still making urine * volume status looks okay. Ventilator settings are not very high. * Potassium and BUN are okay. * CO2 is a little bit low. Will add enteral bicarb * follow trend of repeat labs and UOP (2) Chronic kidney disease, stage 4 (severe): Code(s): N18.4 - Chronic kidney disease, stage 4 (severe) Status: Chronic Assessment and Plan: * baseline creatinine seems to run ~ 1.8 - 2.6mg/dl in the last few years * likely secondary to hypertension, diabetes, vascular disease, YAMILKA, and age- related change based on outpatient evaluation (3) Acute hypoxemic respiratory failure: Code(s): J96.01 - Acute respiratory failure with hypoxia Status: Acute Assessment and Plan: * found unresponsive at home * intubated on arrival to ER for airway protection and possible aspiration * COPD , pneumonia, and fluid contributing to this. * complicated by known history of COPD * on bronchodilators and antibiotics * ventilator weaning when more stable (4) Altered mental status: Qualifiers: Altered mental status type: unspecified Qualified Code(s): R41.82 - Altered mental status, unspecified Code(s): R41.82 - Altered mental status, unspecified Status: Acute Assessment and Plan: * found unresponsive by family * reportedly given CBD beverage 3 hours earlier * unclear if lost pulse based on history * per EMS record, pulse present on their arrival/assessment * urine drug screen was positive for benzodiazepines and cannabis * possible etiology of altered mentation... * CT brain on admission with no acute intracranial hemorrhage or suspicious mass effect * follow mentation as tolerated * still on sedatives (5) Sepsis: Code(s): A41.9 - Sepsis, unspecified organism Status: Acute Assessment and Plan: * as noted by presentation - low BP/hypotension, acute respiratory failure, AMS, and lactic acidosis * s/p aggressive IVF resuscitation * lactic acid down trending * suspect several issues to blame: * diminished oral intake/prerenal factors * infection (aspiration pneumonia) * other (?) * no need for vasopressor therapy * follow culture data (so far negative to date) * empiric antibiotics * recent Echo (10/24( noted: * normal biventricular size and systolic function * no significant valvular disease * atrial septum appears aneurysmal however there is no [id number] shunt by agitated saline study * continue supportive therapy (6) Aspiration pneumonia: Code(s): J69.0 - Pneumonitis due to inhalation of food and vomit Status: Acute Assessment and Plan: * noted emesis/vomiting prior to admission * suspected aspiration pneumonitis/pneumonia * recent imaging noted * on antibiotics (7) HTN (hypertension): Code(s): I10 - Essential (primary) hypertension Status: Acute Assessment and Plan: * borderline low on admission * however, better readings at this time * BP medications on hold for now * we can full these in if her blood pressure rises. 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 Son is in the room and we discussed the case Review of Systems Cardiovascular: Cardiovascular: Reports no additional cardiovascular complaints Respiratory: Respiratory: Reports no additional respiratory complaints Gastrointestinal: Gastrointestinal: Reports no additional gastrointestinal complaints Genitourinary: Genitourinary: Reports no additional female genitourinary complaints Exam Narrative: WDWN female on the ventilator and sedated in NAD skin no rash head ncat lungs coarse bilaterally cor reg no rub abd BS+ nontender and soft ext no edema. Objective Data Vital Signs Vital Signs: Vital Signs - 24 hr 10/25/24 12:00 10/25/24 12:10/25/24 12:00 Temperature Pulse Rate 93 93 Respiratory Rate 18 Blood Pressure Pulse Oximetry 98 Oxygen Delivery Mechanical Ventilation Fraction of Inspired Oxygen 40 40 10/25/24 12:10/25/24 12:00 10/25/24 12:00 Temperature 99.3 F Pulse Rate 93 93 93 Respiratory Rate 18 18 18 Blood Pressure 140/54 L Pulse Oximetry 98 Oxygen Delivery Fraction of Inspired Oxygen 10/25/24 14:00 10/25/24 14:00 10/25/24 14:00 Temperature Pulse Rate 90 90 97 Respiratory Rate 27 H 27 H Blood Pressure Pulse Oximetry Oxygen Delivery Fraction of Inspired Oxygen 10/25/24 14:00 10/25/24 15:07 10/25/24 15:08 Temperature 99.5 F Pulse Rate 97 105 H 101 H Respiratory Rate 26 H 18 Blood Pressure 151/60 H Pulse Oximetry 98 99 Oxygen Delivery Mechanical Ventilation Fraction of Inspired Oxygen 40 10/25/24 15:49 10/25/24 15:49 10/25/24 16:00 Temperature Pulse Rate 103 H 103 H 89 Respiratory Rate 18 18 26 H Blood Pressure Pulse Oximetry Oxygen Delivery Fraction of Inspired Oxygen 10/25/24 16:00 10/25/24 16:00 10/25/24 16:00 Temperature Pulse Rate 89 93 93 Respiratory Rate 26 H 18 Blood Pressure Pulse Oximetry 98 Oxygen Delivery Mechanical Ventilation Fraction of Inspired Oxygen 40 10/25/24 16:00 10/25/24 16:00 10/25/24 17:19 Temperature 99.5 F Pulse Rate 102 H 109 H Respiratory Rate 18 Blood Pressure 136/52 L Pulse Oximetry 99 98 Oxygen Delivery Mechanical Ventilation Fraction of Inspired Oxygen 40 40 10/25/24 18:00 10/25/24 18:00 10/25/24 18:00 Temperature 100.3 F H Pulse Rate 101 H 101 H 80 Respiratory Rate 18 18 Blood Pressure 143/55 H Pulse Oximetry 98 Oxygen Delivery Fraction of Inspired Oxygen 10/25/24 18:00 10/25/24 19:19 10/25/24 19:19 Temperature Pulse Rate 100 101 H 101 H Respiratory Rate 18 18 Blood Pressure Pulse Oximetry 98 Oxygen Delivery Mechanical Ventilation Fraction of Inspired Oxygen 40 10/25/24 20:00 10/25/24 20:00 10/25/24 20:00 Temperature Pulse Rate 106 H Respiratory Rate 18 18 Blood Pressure Pulse Oximetry 98 Oxygen Delivery Mechanical Ventilation Fraction of Inspired Oxygen 40 40 10/25/24 20:00 10/25/24 20:00 10/25/24 20:09 Temperature Pulse Rate 106 H 107 H 108 H Respiratory Rate 18 18 Blood Pressure Pulse Oximetry Oxygen Delivery Fraction of Inspired Oxygen 10/25/24 20:32 10/25/24 22:00 10/25/24 22:00 Temperature 100.1 F H Pulse Rate 106 H 108 H 108 H Respiratory Rate 18 15 15 Blood Pressure 145/52 H Pulse Oximetry 99 Oxygen Delivery Fraction of Inspired Oxygen 10/25/24 22:08 10/25/24 22:41 10/26/24 00:00 Temperature 100.2 F H Pulse Rate 108 H 104 H 104 H Respiratory Rate 15 15 Blood Pressure 118/65 Pulse Oximetry 97 97 Oxygen Delivery Mechanical Ventilation Fraction of Inspired Oxygen 40 10/26/24 00:00 10/26/24 00:00 10/26/24 00:00 Temperature Pulse Rate 104 H Respiratory Rate 15 Blood Pressure Pulse Oximetry 98 Oxygen Delivery Mechanical Ventilation Fraction of Inspired Oxygen 40 40 10/26/24 00:00 10/26/24 00:00 10/26/24 01:56 Temperature 100.4 F H Pulse Rate 100 100 99 Respiratory Rate 24 H Blood Pressure 142/54 H Pulse Oximetry 98 98 Oxygen Delivery Mechanical Ventilation Fraction of Inspired Oxygen 40 10/26/24 01:56 10/26/24 02:00 10/26/24 02:00 Temperature Pulse Rate 99 102 H 102 H Respiratory Rate 19 18 18 Blood Pressure 140/50 L Pulse Oximetry 96 Oxygen Delivery Fraction of Inspired Oxygen 10/26/24 02:00 10/26/24 02:18 10/26/24 02:18 Temperature Pulse Rate 102 H 102 H Respiratory Rate 18 18 Blood Pressure Pulse Oximetry 96 Oxygen Delivery Mechanical Ventilation Fraction of Inspired Oxygen 30 10/26/24 04:00 10/26/24 04:00 10/26/24 04:00 Temperature 99.6 F Pulse Rate 99 Respiratory Rate 18 Blood Pressure 175/67 H Pulse Oximetry 95 95 Oxygen Delivery Mechanical Ventilation Fraction of Inspired Oxygen 30 40 10/26/24 04:00 10/26/24 04:00 10/26/24 05:00 Temperature Pulse Rate 99 99 Respiratory Rate 18 18 Blood Pressure Pulse Oximetry 98 Oxygen Delivery Mechanical Ventilation Fraction of Inspired Oxygen 30 10/26/24 06:00 10/26/24 06:00 10/26/24 06:00 Temperature Pulse Rate 91 90 90 Respiratory Rate 18 18 Blood Pressure 144/48 H Pulse Oximetry 96 Oxygen Delivery Fraction of Inspired Oxygen 10/26/24 06:00 10/26/24 08:00 10/26/24 08:00 Temperature 99.3 F Pulse Rate 90 88 89 Respiratory Rate 18 18 18 Blood Pressure 151/50 H Pulse Oximetry 96 96 Oxygen Delivery Mechanical Ventilation Fraction of Inspired Oxygen 30 10/26/24 08:00 10/26/24 08:00 10/26/24 08:00 Temperature Pulse Rate 89 88 Respiratory Rate 18 Blood Pressure Pulse Oximetry Oxygen Delivery Fraction of Inspired Oxygen 30 10/26/24 08:00 10/26/24 08:57 10/26/24 09:02 Temperature Pulse Rate 88 88 88 Respiratory Rate 18 18 Blood Pressure Pulse Oximetry 96 Oxygen Delivery Mechanical Ventilation Fraction of Inspired Oxygen 30 10/26/24 09:30 10/26/24 10:00 10/26/24 10:00 Temperature Pulse Rate 99 96 95 Respiratory Rate 18 18 18 Blood Pressure Pulse Oximetry Oxygen Delivery Fraction of Inspired Oxygen 10/26/24 10:00 10/26/24 10:00 10/26/24 10:30 Temperature 98.9 F Pulse Rate 95 97 93 Respiratory Rate 18 18 Blood Pressure 142/65 H Pulse Oximetry 97 Oxygen Delivery Fraction of Inspired Oxygen 10/26/24 10:30 10/26/24 11:22 Temperature Pulse Rate 93 95 Respiratory Rate 18 Blood Pressure Pulse Oximetry 96 Oxygen Delivery Mechanical Ventilation Fraction of Inspired Oxygen 30 Intake/Output Intake/Output: Intake & Output 10/23/24 10/24/24 10/25/24 10/26/24 23:59 23:59 23:59 23:59 Intake Total 3293.7 2583.0 357.6 Output Total 400 650 600 Balance 2893.7 1933.0 -242.4 Meds/Results Medications: Active Medications Generic Name Dose Route Start Last Admin Trade Name Freq PRN Reason Stop Dose Admin Acetaminophen 650 mg 10/23/24 22:23 Acetaminophen 325 Mg Tablet PO Q4H PRN Mild Pain (1-3) or Fever Albuterol/Ipratropium 3 ml 10/24/24 14:00 10/26/24 08:57 Ipratropium 0.5 Mg/Albuterol Sulfate 2.5 Mg Ampul.Neb 3 Ml INHALATION 3 ml Q6HRT MP Administration Dextrose 12.5 gm 10/24/24 11:04 Dextrose 50% 25 Gm/50 Ml Syringe IV PUSH PRN PRN Hypoglycemia Protocol Enoxaparin Sodium 30 mg 10/24/24 09:00 10/24/24 09:51 Enoxaparin 30 Mg/0.3 Ml Syringe SUB-Q 30 mg DAILY MP Administration Glucagon 1 mg 10/24/24 11:04 Glucagon For Inj 1 Mg Vial IM PRN PRN Hypoglycemia Protocol Glucose 15 gm 10/24/24 11:04 Glucose Oral Gel 15 Gm Of Glucse In 37.5 Gm Tube PO PRN PRN Hypoglycemia Protocol Fentanyl Citrate 2,500 mcg in 250 mls @ 0 mls/hr 10/24/24 00:20 10/26/24 10:30 Fentanyl 2,500 Mcg/Ns 250 Ml IV CONT 0 mcg/hr .Q0M MP 0 mls/hr Titration Protocol Midazolam HCl 100 mg in 100 mls @ 0 mls/hr 10/24/24 00:20 10/26/24 10:30 Versed 100 Mg/Ns 100 Ml IV CONT 0 mg/hr .Q0M MP 0 mls/hr Titration Protocol Cefepime HCl 1 gm in 50 mls @ 100 mls/hr 10/24/24 09:00 10/26/24 09:28 Maxipime 1 Gm/Ns 50 Ml IVPB Infused Q12H MP Infusion Metronidazole 500 mg in 100 mls @ 100 mls/hr 10/24/24 11:00 10/26/24 07:10 Flagyl 500 Mg/Iso Soln 100 Ml IVPB Infused Q8HR MP Infusion Dextrose 1,000 mls @ 100 mls/hr 10/24/24 11:04 Dextrose 5% 1,000 Ml IVPB PRN PRN Hypoglycemia Protocol Doxycycline Hyclate 100 mg in 100 mls @ 100 mls/hr 10/25/24 13:15 10/26/24 10:00 Vibramycin 100 Mg/Ns 100 Ml IVPB Infused Q12HR MP Infusion Metoprolol Tartrate 12.5 mg 10/26/24 21:00 Metoprolol Tartrate 12.5 Mg Tablet PO Q12HR MP Midazolam HCl 2 mg 10/23/24 22:23 Midazolam Hcl (*Crx) 2 Mg/2 Ml Vial IV PUSH Q4H PRN Agitation Multi-Ingred Cream/Lotion/Oil/Oint 1 applic 10/24/24 09:00 10/26/24 08:58 Mineral Oil/White Petrolatum Ointment EACH EYE 1 applic Q12HR MP Administration Pantoprazole Sodium 40 mg 10/24/24 21:00 10/26/24 08:58 Pantoprazole Sodium Iv 40 Mg Vial IV PUSH 40 mg Q12HR MP Administration Perflutren Lipid Microsphere 0 ml 10/24/24 08:14 Perflutren Lipid Microspheres 1.5 Ml Vial Diluted To 10 Ml Total Volume IV PUSH 10/27/24 08:14 ONCE PRN adequate visualization Protocol Polyethylene Glycol 17 gm 10/25/24 13:18 Polyethylene Glycol 3350 17 Gm Powd.Pack PO QAM PRN Constipation Senna/Docusate Sodium 1 tab 10/25/24 21:00 10/25/24 20:05 Senna/Docusate Sodium Tablet PO 1 tab HS MP Administration Sodium Chloride 20 ml 10/24/24 09:29 Central Line Flush IV PUSH PRN PRN after blood draws Sodium Chloride 10 ml 10/24/24 09:29 Central Line Flush IV PUSH PRN PRN with TPN bag changes Sodium Chloride 10 ml 10/24/24 14:00 10/26/24 05:22 Central Line Flush IV PUSH 10 ml Q8HR MP Administration Vancomycin HCl 1 each 10/23/24 23:22 Vancomycin For Acute Kidney Injury IVPB PRN PRN Vancomycin Protocol Radiology Results: ITS Impressions Head CT 10/23/24 21:39 Impression: No acute intracranial hemorrhage or suspicious mass effect. Chest/Abdomen/Pelvis CTA 10/23/24 21:44 IMPRESSION: No acute intra-abdominal findings to explain patient's presentation. Mural thickening and edema within the gastric cardia and cecum. Endotracheal tube tip is at the level of the chikis for which withdrawal of approximately 2 cm is suggested for optimal placement. Orogastric tube extends to the second portion of the duodenum, and tenting of the wall is demonstrated. Withdrawal of approximately 9 to 10 cm is recommended for optimal placement and to decrease the risk of perforation. Abdomen X-Ray 10/23/24 23:14 IMPRESSION: Orogastric tube in good position and ready for immediate use. Renal Ultrasound 10/25/24 11:26 IMPRESSION: 1. Bilateral medical renal disease with increased cortical echogenicity and mild cortical thinning at both kidneys. No hydronephrosis. 2. Bilateral renal cysts simple renal cysts as well as a likely benign minimally complex Bosniak 2 complex cystic lesion with a few very thin internal septations in the left kidney. Chest X-Ray 10/26/24 06:31 IMPRESSION: 1. Stable diffuse lung disease, likely a combination of mild pulmonary edema and atelectasis versus pneumonia. 2. Cardiomegaly. Labs Labs: Laboratory Results - last 24 hr 10/25/24 10/25/24 10/25/24 11:15 11:15 11:55 WBC RBC Hgb Hct MCV MCH MCHC RDW Plt Count MPV Immature Gran % (Auto) Neut % (Auto) Lymph % (Auto) [place] % (Auto) Eos % (Auto) Baso % (Auto) Lymph # (Auto) [place] # (Auto) Eos # (Auto) Baso # (Auto) Abs Immat Gran (auto) Absolute Neuts (auto) Absolute Nucleated RBC Nucleated RBC % Puncture Site ABG pH ABG pCO2 ABG pO2 ABG PO2/FiO2 Ratio ABG HCO3 ABG O2 Saturation ABG O2 Content ABG Base Excess A-a Gradient Oxyhemoglobin Carboxyhemoglobin Methemoglobin Reduced Hemoglobin Total Hemoglobin O2 Delivery Device O2 Liters/Min Minute Volume Vent Rate Vent Mode FiO2 Tidal Volume PEEP Peak Inspir Pressure Pressure Support Sodium Potassium Chloride Carbon Dioxide Anion Gap BUN Creatinine Estim Creat Clear Calc Estimated GFR Glucose POC Capillary Glucose 114 H Calcium Phosphorus Magnesium Total Bilirubin AST ALT Alkaline Phosphatase Total Protein Albumin U Random Total Protein 407 406 Ur Random Urea 379 Protein/Creat Ratio 2 4.95 H Vancomycin Trough 10/26/24 10/26/24 10/26/24 00:05 04:31 06:21 WBC 7.1 RBC 2.43 L Hgb 7.4 L Hct 24.0 L MCV 98.8 MCH 30.5 MCHC 30.8 L RDW 13.8 Plt Count 118 L MPV 10.5 H Immature Gran % (Auto) 0.8 H Neut % (Auto) 81.5 H Lymph % (Auto) 7.3 L [place] % (Auto) 7.4 Eos % (Auto) 2.7 Baso % (Auto) 0.3 Lymph # (Auto) 0.52 L [place] # (Auto) 0.5 Eos # (Auto) 0.2 Baso # (Auto) 0.0 Abs Immat Gran (auto) 0.06 H Absolute Neuts (auto) 5.8 Absolute Nucleated RBC 0.000 Nucleated RBC % 0.0 Puncture Site Right radial ABG pH 7.341 L ABG pCO2 42.0 ABG pO2 65.6 L ABG PO2/FiO2 Ratio 2.19 ABG HCO3 22.2 ABG O2 Saturation 91.8 L ABG O2 Content 10.7 L ABG Base Excess -3.3 A-a Gradient 99.0 Oxyhemoglobin 93.6 Carboxyhemoglobin 0.1 Methemoglobin 0.2 Reduced Hemoglobin 6.1 H Total Hemoglobin 8.1 L O2 Delivery Device Ventilator O2 Liters/Min Not Reportable Minute Volume Not Reportable Vent Rate 18 Vent Mode Cmv FiO2 30 Tidal Volume 400 PEEP 5 Peak Inspir Pressure Not Reportable Pressure Support Not Reportable Sodium 139 Potassium 4.1 Chloride 106 Carbon Dioxide 19 L Anion Gap 14 H BUN 50 H Creatinine 3.21 H Estim Creat Clear Calc 11 Estimated GFR 17 L Glucose 122 H POC Capillary Glucose 140 H Calcium 8.4 Phosphorus 4.2 Magnesium 1.7 Total Bilirubin 0.5 AST 16 ALT 10 Alkaline Phosphatase 59 Total Protein 6.0 L Albumin 3.7 U Random Total Protein Ur Random Urea Protein/Creat Ratio 2 Vancomycin Trough 14.3
[2024-10-26] MEDS: SODIUM BICARBONATE TAB 650 MG TABLET 1300 MG PO (17:41)
[2024-10-26] MEDS: METOPROLOL TARTRATE 12.5 MG TABLET PO (20:27)
[2024-10-26] MEDS: SENNA/DOCUSATE SODIUM TABLET 1 TAB PO (20:27)
[2024-10-26] MEDS: dexmedeTOMIDine 400 MCG/100 ML 400 MCG/100 ML BAG IV CONT (23:14)
[2024-10-27] VITALS (34 sets, daily range): BP systolic 141–177; BP diastolic 47–79; PULSE 79–106; RESP 16–29; TEMP 36.6–37.8; O2SAT 94–98
[2024-10-27] MEDS: IPRATROPIUM 0.5 MG/ALBUTEROL SULFATE 2.5 MG AMPUL.NEB 3 ML INHALATION ×4 (01:54→20:01)
[2024-10-27 05:49] LABS: Alveolar/Arterial O2 Gradient 101.9 mmHg; Base Excess ABG -3.6 mEq/l (+/-2.0); Carboxyhemoglobin 0.1 % THb (0-2.0); Fractional Inspired Oxygen 30 %; HCO3 ABG 21.4 mEq/l (22.0-26.0); Methemoglobin ABG 0.3 %THb (0-1.5); Oxygen Content ABG 11.9 %vol (16.0-22.0); Oxygen Saturation ABG 92.8 % (95.0-100.0); Oxyhemoglobin 93.3 % THb (90.0-100.0); PCO2 ABG 38.4 mmHg (35.0-45.0); PO2 ABG 66.9 mmHg (80.0-100.0); PO2 FiO2 Ratio Arterial Blood 2.23 %; Reduced Hemoglobin 6.3 %THb (0-5.0); pH ABG 7.364 (7.350-7.450)
[2024-10-27 05:51] LABS: Device VENTILATOR; Modified Allen's Test Pass; Site Drawn LEFT RADIAL
[2024-10-27 05:52] LABS: Arterial Blood Gas PEEP 5 cmH2O; Arterial Blood Gas Tidal Volume 400 ml; Arterial Blood Gas Vent Mode CMV; Arterial Blood Gas Ventilator rate 18 /MIN
[2024-10-27] MEDS: CENTRAL LINE FLUSH 10 ML IV PUSH ×3 (06:11→21:20)
[2024-10-27] MEDS: metroNIDAZOLE 500 MG/ISO 100ML 500 MG/100 ML BAG 100 MG IVPB ×3 (06:11→22:15)
[2024-10-27 06:13] LABS: Basophils Percent Auto 0.4 % (0.2-1.2); Eosinophils Absolute Auto 0.2 K/mm3 (0-0.3); Hematocrit 25.3 % (37.0-47.0); Hemoglobin 8.1 g/dL (12.0-15.0); Immature Granulocyte Absolute 0.06 K/mm3 (0.00-0.031); Immature Granulocyte Percent A 0.9 % (0-0.5); Lymphocytes Absolute Auto 0.56 K/mm3 (0.9-3.2); Lymphocytes Percent Auto 8.3 % (18.3-44.2); Mean Corpuscular Hemoglobin 30.6 pg (26-34); Mean Corpuscular Volume 95.5 fl (80-100); Mean Platelet Volume 10.8 fl (7.4-10.4); Monocytes Absolute Auto 0.7 K/mm3 (0.1-0.6); Monocytes Percent Auto 10.2 % (2.6-8.5); Neutrophils Absolute Auto 5.2 K/mm3 (1.3-6.7); Neutrophils Percent Auto 77.2 % (45.5-73.1); Platelet Count Result 137 k/mm3 (150-375); Red Blood Count 2.65 M/mm3 (4.2-5.4); Red Cell Distribution Width 13.8 % (11.5-14.5); White Blood Count 6.7 K/mm3 (4.5-10.0)
[2024-10-27 06:28] LABS: Alanine Aminotransferase 10 U/L (6-35); Albumin Level 3.5 g/dL (3.5-5.1); Alkaline Phosphatase 62 U/L (38-126); Anion Gap 13 mmol/L (4-12); Aspartate Amino Transferase 16 U/L (14-36); Bilirubin,Total 0.5 mg/dL (0.2-1.3); Blood Urea Nitrogen 62 mg/dL (7-17); Calcium 8.6 mg/dL (8.4-10.2); Carbon Dioxide 21 mmol/L (22-30); Chloride 107 mmol/L (98-107); Estimated CRCL calculation 11 ml/min; Estimated Glomerular Filt Rate 16; Glucose 123 mg/dL (65-110); Magnesium 1.9 mg/dL (1.6-2.3); Phosphorus 4.4 mg/dL (2.5-4.5); Potassium 4.5 mmol/L (3.4-5.0); Sodium 141 mmol/L (137-145)
[2024-10-27 06:51] LABS: Vancomycin Trough 19.2 ug/mL (10.0-20.0)
[2024-10-27] MEDS: CEFEPIME 1 GM/NS 50 ML 1 GM/50 ML BAG IVPB ×2 (08:43→21:18)
[2024-10-27] MEDS: DOXYCYCLINE 100 MG/NS 100 ML 100 MG/100 ML BAG IVPB ×2 (08:43→21:21)
[2024-10-27] MEDS: PANTOPRAZOLE SODIUM IV 40 MG VIAL IV PUSH ×2 (08:47→21:18)
[2024-10-27] MEDS: polyethylene glycoL 3350 17 GM POWD.PACK PO (08:47)
[2024-10-27] MEDS: SODIUM BICARBONATE TAB 650 MG TABLET 1300 MG PO ×2 (08:47→17:29)
[2024-10-27] MEDS: METOPROLOL TARTRATE 12.5 MG TABLET PO ×2 (08:47→21:17)
[2024-10-27] MEDS: MINERAL OIL/WHITE PETROLATUM OINTMENT 1 APPLIC EACH EYE (08:48)
[2024-10-27 10:46] LABS: Alveolar/Arterial O2 Gradient 85.8 mmHg; Base Excess ABG -3.5 mEq/l (+/-2.0); Device VENTILATOR; Fractional Inspired Oxygen 30 %; HCO3 ABG 21.2 mEq/l (22.0-26.0); Oxygen Content ABG 11.9 %vol (16.0-22.0); Oxygen Saturation ABG 96.3 % (95.0-100.0); Oxyhemoglobin 95.8 % THb (90.0-100.0); PCO2 ABG 36.7 mmHg (35.0-45.0); PO2 FiO2 Ratio Arterial Blood 2.83 %; Site Drawn LEFT BRACHIAL; Total Hemoglobin 8.7 g/dL (12.0-18.0)
[2024-10-27 10:47] LABS: Arterial Blood Gas PEEP 5 cmH2O; Arterial Blood Gas Pressure Support 8 cmH2O; Arterial Blood Gas Vent Mode SPONTANEOUS
--- NOTE | 2024-10-27 10:52 | P.PNNP_ITS ---
Progress Note: A&P Assessment and Plan (1) SOLOMON (acute kidney injury): Code(s): N17.9 - Acute kidney failure, unspecified Status: Acute Assessment and Plan: * at baseline on admission with worsening noted on 10/25 * suspect multifactorial etiology: * infection/sepsis (aspiration pneumonia) * hypoxia * contrast exposure (CTA C/A/P on 10/23/24) * relative hypotension on admission * diuretic use prior to admission * other(?) * evaluation to date noted: * renal u/s consistent with CKD with no acute issues * urine electrolytes prerenal (by FeUrea) * urine eosinophils negative * proteinuria noted * CPK mildly elevated but not enough to affect kidney function * still making urine: Urine output 900 yesterday * volume status looks okay. Ventilator settings are not very high. * Potassium and BUN are okay. * CO2 is slightly better * her creatinine a little bit higher. Hopefully reaching a plateau (2) Chronic kidney disease, stage 4 (severe): Code(s): N18.4 - Chronic kidney disease, stage 4 (severe) Status: Chronic Assessment and Plan: * baseline creatinine seems to run ~ 1.8 - 2.6mg/dl in the last few years * likely secondary to hypertension, diabetes, vascular disease, YAMILKA, and age- related change based on outpatient evaluation (3) Acute hypoxemic respiratory failure: Code(s): J96.01 - Acute respiratory failure with hypoxia Status: Acute Assessment and Plan: * found unresponsive at home * intubated on arrival to ER for airway protection and possible aspiration * COPD , pneumonia, and fluid contributing to this. * complicated by known history of COPD * on bronchodilators and cefepime, doxy, Flagyl, and vanco * ventilator weaning when more stable (4) Altered mental status: Qualifiers: Altered mental status type: unspecified Qualified Code(s): R41.82 - Altered mental status, unspecified Code(s): R41.82 - Altered mental status, unspecified Status: Acute Assessment and Plan: * found unresponsive by family * reportedly given CBD beverage 3 hours earlier * unclear if lost pulse based on history * per EMS record, pulse present on their arrival/assessment * urine drug screen was positive for benzodiazepines and cannabis * possible etiology of altered mentation... * CT brain on admission with no acute intracranial hemorrhage or suspicious mass effect * follow mentation as tolerated * still on sedatives (5) Sepsis: Code(s): A41.9 - Sepsis, unspecified organism Status: Acute Assessment and Plan: * as noted by presentation - low BP/hypotension, acute respiratory failure, AMS, and lactic acidosis * s/p aggressive IVF resuscitation * lactic acid down trending * suspect several issues to blame: * diminished oral intake/prerenal factors * infection (aspiration pneumonia) * other (?) * no need for vasopressor therapy * blood cultures are negative * urinalysis is bland * empiric antibiotics * recent Echo (10/24( noted: * normal biventricular size and systolic function * no significant valvular disease * atrial septum appears aneurysmal however there is no [id number] shunt by agitated saline study * continue supportive therapy (6) Aspiration pneumonia: Code(s): J69.0 - Pneumonitis due to inhalation of food and vomit Status: Acute Assessment and Plan: * noted emesis/vomiting prior to admission * suspected aspiration pneumonitis/pneumonia * recent imaging noted * on multiple antibiotics (7) HTN (hypertension): Code(s): I10 - Essential (primary) hypertension Status: Acute Assessment and Plan: * borderline low on admission * however, better readings at this time * BP medications on hold for now * blood pressure in the 140-170 range. * Metoprolol just restarted. Will wait 1 more day then fold in some amlodipine if needed (8) Diabetes: Code(s): E11.9 - Type 2 diabetes mellitus without complications Status: Chronic Assessment and Plan: * follow accu-cheks * glycemic control per mixer operator Subjective Date/time seen: 10/27/24 10:52 Interval history: patient is sedated. Two sons and a [id number] are in the room. We discussed the case. Exam Narrative: WDWN female on the ventilator and sedated in NAD skin no rash head ncat lungs coarse bilaterally cor reg no rub Or gallop abd BS+ nontender and soft ext trace bilateral edema. Objective Data Vital Signs Vital Signs: Vital Signs - 24 hr 10/26/24 11:22 10/26/24 12:00 10/26/24 12:00 Temperature 99.4 F Pulse Rate 95 96 95 Respiratory Rate 18 20 Blood Pressure 152/58 H Pulse Oximetry 96 95 96 Oxygen Delivery Mechanical Ventilation Mechanical Ventilation Fraction of Inspired Oxygen 30 30 10/26/24 12:00 10/26/24 12:00 10/26/24 14:00 Temperature Pulse Rate 95 100 Respiratory Rate Blood Pressure Pulse Oximetry Oxygen Delivery Fraction of Inspired Oxygen 30 10/26/24 14:00 10/26/24 15:53 10/26/24 15:54 Temperature 99.9 F H Pulse Rate 100 95 97 Respiratory Rate 18 19 Blood Pressure 159/51 H Pulse Oximetry 95 95 Oxygen Delivery Mechanical Ventilation Fraction of Inspired Oxygen 30 10/26/24 16:00 10/26/24 16:00 10/26/24 16:00 Temperature Pulse Rate 102 H 101 H Respiratory Rate 22 H Blood Pressure Pulse Oximetry 96 Oxygen Delivery Mechanical Ventilation Fraction of Inspired Oxygen 30 30 10/26/24 16:00 10/26/24 18:00 10/26/24 18:00 Temperature 99.9 F H 99.4 F Pulse Rate 101 H 97 97 Respiratory Rate 18 19 Blood Pressure 160/52 H 155/57 H Pulse Oximetry 96 98 Oxygen Delivery Fraction of Inspired Oxygen 10/26/24 20:00 10/26/24 20:00 10/26/24 20:00 Temperature Pulse Rate 100 Respiratory Rate Blood Pressure Pulse Oximetry 97 Oxygen Delivery Mechanical Ventilation Fraction of Inspired Oxygen 30 30 10/26/24 20:00 10/26/24 20:27 10/26/24 21:17 Temperature 100 F H Pulse Rate 101 H 101 H 95 Respiratory Rate 20 22 H Blood Pressure 173/63 H Pulse Oximetry 97 Oxygen Delivery Fraction of Inspired Oxygen 10/26/24 21:18 10/26/24 21:27 10/26/24 22:00 Temperature Pulse Rate 102 H 100 100 Respiratory Rate 20 Blood Pressure Pulse Oximetry 95 Oxygen Delivery Mechanical Ventilation Fraction of Inspired Oxygen 30 10/26/24 22:00 10/26/24 23:14 10/26/24 23:40 Temperature 99.9 F H Pulse Rate 100 107 H 98 Respiratory Rate 19 33 H Blood Pressure 161/59 H Pulse Oximetry 95 96 Oxygen Delivery Mechanical Ventilation Fraction of Inspired Oxygen 30 10/27/24 00:00 10/27/24 00:00 10/27/24 00:00 Temperature Pulse Rate 105 H Respiratory Rate Blood Pressure Pulse Oximetry 96 Oxygen Delivery Mechanical Ventilation Fraction of Inspired Oxygen 30 30 10/27/24 00:00 10/27/24 00:00 10/27/24 01:54 Temperature 100.1 F H Pulse Rate 106 H 106 H 96 Respiratory Rate 29 H 29 H Blood Pressure 169/60 H Pulse Oximetry 96 97 Oxygen Delivery Mechanical Ventilation Fraction of Inspired Oxygen 30 10/27/24 01:54 10/27/24 02:00 10/27/24 02:00 Temperature 99.6 F Pulse Rate 96 93 96 Respiratory Rate 16 24 H Blood Pressure 152/54 H Pulse Oximetry 97 Oxygen Delivery Fraction of Inspired Oxygen 10/27/24 02:00 10/27/24 02:10 10/27/24 04:00 Temperature Pulse Rate 96 96 Respiratory Rate 24 H 16 Blood Pressure Pulse Oximetry 97 Oxygen Delivery Mechanical Ventilation Fraction of Inspired Oxygen 30 10/27/24 04:00 10/27/24 04:00 10/27/24 04:00 Temperature 99 F Pulse Rate 87 88 Respiratory Rate 20 Blood Pressure 141/47 H Pulse Oximetry 97 Oxygen Delivery Fraction of Inspired Oxygen 30 10/27/24 04:00 10/27/24 05:45 10/27/24 06:00 Temperature Pulse Rate 88 89 89 Respiratory Rate 20 25 H Blood Pressure Pulse Oximetry 97 Oxygen Delivery Mechanical Ventilation Fraction of Inspired Oxygen 30 10/27/24 06:00 10/27/24 06:00 10/27/24 06:33 Temperature 98.3 F Pulse Rate 89 89 Respiratory Rate 25 H Blood Pressure 171/67 H 154/58 H Pulse Oximetry 97 Oxygen Delivery Fraction of Inspired Oxygen 10/27/24 08:00 10/27/24 08:00 10/27/24 08:00 Temperature 98.1 F Pulse Rate 86 Respiratory Rate 28 H Blood Pressure 154/60 H Pulse Oximetry 97 97 Oxygen Delivery Mechanical Ventilation Fraction of Inspired Oxygen 30 30 10/27/24 08:00 10/27/24 08:38 10/27/24 08:47 Temperature Pulse Rate 86 84 83 Respiratory Rate 24 H Blood Pressure Pulse Oximetry Oxygen Delivery Fraction of Inspired Oxygen 10/27/24 08:52 10/27/24 08:57 10/27/24 09:00 Temperature Pulse Rate 84 86 87 Respiratory Rate 25 H 24 H Blood Pressure Pulse Oximetry 97 Oxygen Delivery Mechanical Ventilation Fraction of Inspired Oxygen 30 10/27/24 10:00 10/27/24 10:00 10/27/24 10:00 Temperature 98.1 F Pulse Rate 79 80 82 Respiratory Rate 21 H 22 H Blood Pressure 141/55 H Pulse Oximetry 97 Oxygen Delivery Fraction of Inspired Oxygen Intake/Output Intake/Output: Intake & Output 10/24/24 10/25/24 10/26/24 10/27/24 23:59 23:59 23:59 23:59 Intake Total 3293.7 2583.0 1474.6 814.7 Output Total 400 650 900 600 Balance 2893.7 1933.0 574.6 214.7 Meds/Results Medications: Active Medications Generic Name Dose Route Start Last Admin Trade Name Freq PRN Reason Stop Dose Admin Acetaminophen 650 mg 10/23/24 22:23 Acetaminophen 325 Mg Tablet PO Q4H PRN Mild Pain (1-3) or Fever Albuterol/Ipratropium 3 ml 10/24/24 14:00 10/27/24 08:51 Ipratropium 0.5 Mg/Albuterol Sulfate 2.5 Mg Ampul.Neb 3 Ml INHALATION 3 ml Q6HRT MP Administration Dextrose 12.5 gm 10/24/24 11:04 Dextrose 50% 25 Gm/50 Ml Syringe IV PUSH PRN PRN Hypoglycemia Protocol Enoxaparin Sodium 30 mg 10/24/24 09:00 10/24/24 09:51 Enoxaparin 30 Mg/0.3 Ml Syringe SUB-Q 30 mg DAILY MP Administration Glucagon 1 mg 10/24/24 11:04 Glucagon For Inj 1 Mg Vial IM PRN PRN Hypoglycemia Protocol Glucose 15 gm 10/24/24 11:04 Glucose Oral Gel 15 Gm Of Glucse In 37.5 Gm Tube PO PRN PRN Hypoglycemia Protocol Midazolam HCl 100 mg in 100 mls @ 0 mls/hr 10/24/24 00:20 10/26/24 10:30 Versed 100 Mg/Ns 100 Ml IV CONT 0 mg/hr .Q0M MP 0 mls/hr Titration Protocol Cefepime HCl 1 gm in 50 mls @ 100 mls/hr 10/24/24 09:00 10/27/24 08:43 Maxipime 1 Gm/Ns 50 Ml IVPB 100 mls/hr Q12H MP Administration Metronidazole 500 mg in 100 mls @ 100 mls/hr 10/24/24 11:00 10/27/24 07:14 Flagyl 500 Mg/Iso Soln 100 Ml IVPB Infused Q8HR MP Infusion Dextrose 1,000 mls @ 100 mls/hr 10/24/24 11:04 Dextrose 5% 1,000 Ml IVPB PRN PRN Hypoglycemia Protocol Doxycycline Hyclate 100 mg in 100 mls @ 100 mls/hr 10/25/24 13:15 10/27/24 08:43 Vibramycin 100 Mg/Ns 100 Ml IVPB 10/30/24 13:14 100 mls/hr Q12HR MP Administration Dexmedetomidine HCl 400 mcg in 100 mls @ 0 mls/hr 10/26/24 23:05 10/27/24 10:00 Precedex 400 Mcg/100 Ml IV CONT 0 mcg/kg/hr .Q0M MP 0 mls/hr Titration Protocol Metoprolol Tartrate 12.5 mg 10/26/24 21:00 10/27/24 08:47 Metoprolol Tartrate 12.5 Mg Tablet PO 12.5 mg Q12HR MP Administration Multi-Ingred Cream/Lotion/Oil/Oint 1 applic 10/24/24 09:00 10/27/24 08:48 Mineral Oil/White Petrolatum Ointment EACH EYE 1 applic Q12HR MP Administration Pantoprazole Sodium 40 mg 10/24/24 21:00 10/27/24 08:47 Pantoprazole Sodium Iv 40 Mg Vial IV PUSH 40 mg Q12HR MP Administration Polyethylene Glycol 17 gm 10/27/24 09:00 10/27/24 08:47 Polyethylene Glycol 3350 17 Gm Powd.Pack PO 17 gm QAM MP Administration Senna/Docusate Sodium 1 tab 10/25/24 21:00 10/26/24 20:27 Senna/Docusate Sodium Tablet PO 1 tab HS MP Administration Sodium Bicarbonate 1,300 mg 10/26/24 18:00 10/27/24 08:47 Sodium Bicarbonate Tab 650 Mg Tablet PO 1,300 mg BIDPC MP Administration Sodium Chloride 20 ml 10/24/24 09:29 Central Line Flush IV PUSH PRN PRN after blood draws Sodium Chloride 10 ml 10/24/24 09:29 Central Line Flush IV PUSH PRN PRN with TPN bag changes Sodium Chloride 10 ml 10/24/24 14:00 10/27/24 06:11 Central Line Flush IV PUSH 10 ml Q8HR MP Administration Radiology Results: ITS Impressions Head CT 10/23/24 21:39 Impression: No acute intracranial hemorrhage or suspicious mass effect. Chest/Abdomen/Pelvis CTA 10/23/24 21:44 IMPRESSION: No acute intra-abdominal findings to explain patient's presentation. Mural thickening and edema within the gastric cardia and cecum. Endotracheal tube tip is at the level of the chikis for which withdrawal of approximately 2 cm is suggested for optimal placement. Orogastric tube extends to the second portion of the duodenum, and tenting of the wall is demonstrated. Withdrawal of approximately 9 to 10 cm is recommended for optimal placement and to decrease the risk of perforation. Abdomen X-Ray 10/23/24 23:14 IMPRESSION: Orogastric tube in good position and ready for immediate use. Renal Ultrasound 10/25/24 11:26 IMPRESSION: 1. Bilateral medical renal disease with increased cortical echogenicity and mild cortical thinning at both kidneys. No hydronephrosis. 2. Bilateral renal cysts simple renal cysts as well as a likely benign minimally complex Bosniak 2 complex cystic lesion with a few very thin internal septations in the left kidney. Chest X-Ray 10/27/24 06:42 IMPRESSION: 1. Stable diffuse bilateral lung disease which could represent mild pulmonary edema, atelectasis, pneumonia or most likely some combination thereof. 2. Cardiomegaly. Labs Labs: Laboratory Results - last 24 hr 10/27/24 10/27/24 10/27/24 05:45 06:08 10:34 WBC 6.7 RBC 2.65 L Hgb 8.1 L Hct 25.3 L MCV 95.5 MCH 30.6 MCHC 32.0 RDW 13.8 Plt Count 137 L MPV 10.8 H Immature Gran % (Auto) 0.9 H Neut % (Auto) 77.2 H Lymph % (Auto) 8.3 L Upson % (Auto) 10.2 H Eos % (Auto) 3.0 Baso % (Auto) 0.4 Lymph # (Auto) 0.56 L Upson # (Auto) 0.7 H Eos # (Auto) 0.2 Baso # (Auto) 0.0 Abs Immat Gran (auto) 0.06 H Absolute Neuts (auto) 5.2 Absolute Nucleated RBC 0.000 Nucleated RBC % 0.0 Puncture Site Left radial Left brachial ABG pH 7.364 7.380 ABG pCO2 38.4 36.7 ABG pO2 66.9 L 85.0 ABG PO2/FiO2 Ratio 2.23 2.83 ABG HCO3 21.4 L 21.2 L ABG O2 Saturation 92.8 L 96.3 ABG O2 Content 11.9 L 11.9 L ABG Base Excess -3.6 -3.5 A-a Gradient 101.9 85.8 Oxyhemoglobin 93.3 95.8 Carboxyhemoglobin 0.1 Methemoglobin 0.3 Reduced Hemoglobin 6.3 H Total Hemoglobin 9.0 L 8.7 L O2 Delivery Device Ventilator Ventilator O2 Liters/Min Not Reportable Not Reportable Minute Volume Not Reportable Not Reportable Vent Rate 18 Not Reportable Vent Mode Cmv Spontaneous FiO2 30 30 Tidal Volume 400 Not Reportable PEEP 5 5 Peak Inspir Pressure Not Reportable Not Reportable Pressure Support Not Reportable 8 Sodium 141 Potassium 4.5 Chloride 107 Carbon Dioxide 21 L Anion Gap 13 H BUN 62 H D Creatinine 3.33 H Estim Creat Clear Calc 11 Estimated GFR 16 L Glucose 123 H Calcium 8.6 Phosphorus 4.4 Magnesium 1.9 Total Bilirubin 0.5 AST 16 ALT 10 Alkaline Phosphatase 62 Total Protein 6.0 L Albumin 3.5 Vancomycin Trough 19.2
--- NOTE | 2024-10-27 11:38 | P.PNINT_ITS ---
Progress Note: A&P Assessment and Plan (1) Altered mental status: Qualifiers: Altered mental status type: unspecified Qualified Code(s): R41.82 - Altered mental status, unspecified Code(s): R41.82 - Altered mental status, unspecified Status: Acute Assessment and Plan: Patient was found unresponsive at home by her son, 3 hours after he gave her a CBD drink to calm her anxiety. Patient did have emesis at home, unknown if she had lost a pulse. Upon EMS arrival she did have a pulse but was difficult to intubate so laryngeal airway was placed, patient brought to ED which she was intubated. -urine drug screen was positive for benzodiazepines and cannabis which could possibly could have caused altered mental status. -patient given IV fluids, will monitor urine output to see if she can excrete these medications -adequately fluid-resuscitated, discontinue maintenance IV fluids 10/23/2024: -CT brain with no acute intracranial hemorrhage or suspicious mass effect (2) Respiratory failure requiring intubation: Code(s): J96.90 - Respiratory failure, unspecified, unspecified whether with hypoxia or hypercapnia Status: Acute Assessment and Plan: Patient was unresponsive at home, had emesis. Failed intubation on side by EMS, laryngeal airway was inserted -10/23: Intubated upon arrival to the ER for airway protection and possible aspiration -currently on CMV mode of ventilation, peep of 5, 28% FiO2, -ABG showed respiratory acidosis, increased tidal volume and FiO2 -chest x-ray this morning showed: Worsening central congestive change and patchy bilateral airspace disease. Correlate for worsening pulmonary edema versus pneumonia. -given history of asthma and COPD, continue bronchodilators -patient is on Precedex infusion 10/27: Placed patient on SBT, she did well, successfully extubated. Continue NG tube for now. Continue supplemental oxygen, wean to maintain O2 sats 10/23/2024: -CTA chest abdomen and pelvis: No acute intra-abdominal findings to explain patient's presentation. Mural thickening and edema within the gastric cardia and cecum. Endotracheal tube tip is at the level of the chikis for which withdrawal of approximately 2 cm is suggested for optimal placement. Orogastric tube extends to the second portion of the duodenum, and tenting of the wall is demonstrated. Withdrawal of approximately 9 to 10 cm is recommended for optimal placement and to decrease the risk of perforation. (3) Sepsis: Code(s): A41.9 - Sepsis, unspecified organism Status: Acute Assessment and Plan: Elevated lactic acidosis, hypotension,, respiratory failure, altered mental status -lactic acid trending down adequate IV fluid -according the son patient has not been taking adequate oral intake, liquids as well as solids for the last 2-3 weeks -could be hypovolemia secondary to decreased oral intake -there is a history of CHF, chest x-ray was clear, given adequate amount of IV fluid -further intravascular volume expansion with albumin -blood pressures remain stable at this time, continue to monitor -patient does have a PICC line which was placed on 10/24/2024 -continue cefepime and vancomycin (10/23) -continue doxycycline (10/25) -10/23: Preliminary blood cultures are negative 10/24/2024: Echocardiogram Summary 1. Complete two-dimensional, color flow and Doppler transthoracic echocardiogram is performed. 2. There is normal biventricular size and systolic function. 3. There is no significant valvular disease. 4. The atrial septum appears aneurysmal however there is no [id number] shunt by agitated saline study. (4) Aspiration pneumonia: Code(s): J69.0 - Pneumonitis due to inhalation of food and vomit Status: Acute Assessment and Plan: Pt had emesis at home, possible aspiration pneumonitis/pneumonia 10/25: CXR: Worsening central congestive change and patchy bilateral airspace disease. Correlate for worsening pulmonary edema versus pneumonia -continue antibiotics as above (5) Positive urine drug screen: Code(s): R82.5 - Elevated urine levels of drugs, medicaments and biological substances Status: Acute Assessment and Plan: Urine drug screen was positive for cannabinoids and benzodiazepine (6) Hypoglycemia: Code(s): E16.2 - Hypoglycemia, unspecified Status: Acute Assessment and Plan: Patient has a history of type 2 diabetes, was hypoglycemic when EMS arrived, received dextrose -blood sugars have been stable -continue Accu-Cheks and sliding scale insulin (7) Chronic kidney disease, stage 4 (severe): Code(s): N18.4 - Chronic kidney disease, stage 4 (severe) Status: Chronic Assessment and Plan: Acute on chronic kidney disease stage IV, creatinine was at baseline on admission, -patient has been adequately fluid-resuscitated, added albumin for further intravascular volume repletion -10/25: Elevated creatinine, patient also received contrast on admission, could be related to contrast induced nephropathy, sepsis -10/25: Renal ultrasound showed bilateral medical renal disease, bilateral renal cysts, no hydronephrosis or stones. -urine lytes was not prerenal, negative urine eosinophils, CK levels 289 -appreciate Nephrology evaluation and recommendations -continue monitor urine output, renal function and electrolytes -creatinine continues to rise but probably will plateau, patient continues to have urine output, will discuss with Nephrology regarding diuresing the patient (8) HTN (hypertension): Code(s): I10 - Essential (primary) hypertension Status: Acute Assessment and Plan: History of essential hypertension, -will start metoprolol at half the dose that she takes at home -p.r.n. hydralazine (9) Diabetes: Code(s): E11.9 - Type 2 diabetes mellitus without complications Status: Chronic Assessment and Plan: Accu-Cheks and sliding scale insulin Plan DVT prophylaxis: SCDs, hold chemoprophylaxis due to coffee-ground drainage in the OG tube, anemia Stress ulcer prophylaxis: Protonix IV q.12 hours Nutrition: All in tube feeds for possible extubation will add p.r.n. MiraLax and senna S Code Status: Full code Critical Care Time Spent: 33 minutes Discussed 3 sons and other family members and updated with patient's condition and plan of care. They are aware that patient is on a breathing trial and will be extubated if he does well. Due to a high probability of clinically significant, life threatening deterioration, the patient required my highest level of preparedness to interv flor emergently and I personally spent this critical care time directly and personally managing the patient. This critical care time included obtaining a history; examining the patient; pulse oximetry; ordering and review of studies; arranging urgent treatment with development of a management plan; evaluation of patient's response to treatment; frequent reassessment; and discussions with other providers. It was exclusive of separately billable procedures and treating other patients and teaching time. Please see Assessment and Plan section and the rest of the note for further information on patient assessment and treatment This dictation may have been done utilizing a voice recognition system. Attempts have been made to correct errors. However, there may be uncorrected grammatical, spelling, and recognitions errors present. Subjective Date/time seen: 10/27/24 11:38 Interval history: Reason for consult: Unresponsive episode after being given CBD drink by her son, acute respiratory failure requiring intubation 10/27/2024: Patient seen and examined the ICU, remains intubated on CMV mode of ventilation, peep of 5, 30% FiO2. Remains on Precedex infusion, opens her eyes, follows simple commands. Urine output has been adequate, patient is afebrile and hemodynamically stable. Remains at pressors. Hemoglobin improving this morning. Creatinine continues to rise Review of Systems Review of Systems: ROS unobtainable: Yes unobtainable due to endotracheal tube, unobtainable due to medical condition and unobtainable due to mental status Exam Narrative: General: Elderly female currently intubated and sedated, in no acute distress HEENT:? Pupil are equal and reactive, sclerae is clear, ETT in place Neck:? Supple Respiratory:? Coarse breath sounds bilaterally, overall better air entry, , no wheezing, Cardiac:? S1-S2 is normal, regular rate and rhythm Abdomen:? Soft, nontender, obese, hypoactive bowel sound, no tenderness to palpation Extremities:? No edema, palpable pedal pulse Neuro:? Patient is intubated, sedated, opens her eyes to name but does not foll ow simple commands. Skin:? Warm and dry, no skin lesions noted Psych:? Unable to assess at this time Objective Data Vital Signs Vital Signs: Vital Signs - 24 hr 10/26/24 12:00 10/26/24 12:00 10/26/24 12:00 Temperature 99.4 F Pulse Rate 96 95 95 Respiratory Rate 18 20 Blood Pressure 152/58 H Pulse Oximetry 95 96 Oxygen Delivery Mechanical Ventilation Oxygen Flow Rate Fraction of Inspired Oxygen 30 10/26/24 12:00 10/26/24 14:00 10/26/24 14:00 Temperature 99.9 F H Pulse Rate 100 100 Respiratory Rate 18 Blood Pressure 159/51 H Pulse Oximetry 95 Oxygen Delivery Oxygen Flow Rate Fraction of Inspired Oxygen 30 10/26/24 15:53 10/26/24 15:54 10/26/24 16:00 Temperature Pulse Rate 95 97 102 H Respiratory Rate 19 22 H Blood Pressure Pulse Oximetry 95 96 Oxygen Delivery Mechanical Ventilation Mechanical Ventilation Oxygen Flow Rate Fraction of Inspired Oxygen 30 30 10/26/24 16:00 10/26/24 16:00 10/26/24 16:00 Temperature 99.9 F H Pulse Rate 101 H 101 H Respiratory Rate 18 Blood Pressure 160/52 H Pulse Oximetry 96 Oxygen Delivery Oxygen Flow Rate Fraction of Inspired Oxygen 30 10/26/24 18:00 10/26/24 18:00 10/26/24 20:00 Temperature 99.4 F Pulse Rate 97 97 Respiratory Rate 19 Blood Pressure 155/57 H Pulse Oximetry 98 97 Oxygen Delivery Mechanical Ventilation Oxygen Flow Rate Fraction of Inspired Oxygen 30 10/26/24 20:00 10/26/24 20:00 10/26/24 20:00 Temperature 100 F H Pulse Rate 100 101 H Respiratory Rate 20 Blood Pressure 173/63 H Pulse Oximetry 97 Oxygen Delivery Oxygen Flow Rate Fraction of Inspired Oxygen 30 10/26/24 20:27 10/26/24 21:17 10/26/24 21:18 Temperature Pulse Rate 101 H 95 102 H Respiratory Rate 22 H Blood Pressure Pulse Oximetry 95 Oxygen Delivery Mechanical Ventilation Oxygen Flow Rate Fraction of Inspired Oxygen 30 10/26/24 21:27 10/26/24 22:00 10/26/24 22:00 Temperature 99.9 F H Pulse Rate 100 100 100 Respiratory Rate 20 19 Blood Pressure 161/59 H Pulse Oximetry 95 Oxygen Delivery Oxygen Flow Rate Fraction of Inspired Oxygen 10/26/24 23:14 10/26/24 23:40 10/27/24 00:00 Temperature Pulse Rate 107 H 98 Respiratory Rate 33 H Blood Pressure Pulse Oximetry 96 96 Oxygen Delivery Mechanical Ventilation Mechanical Ventilation Oxygen Flow Rate Fraction of Inspired Oxygen 30 30 10/27/24 00:00 10/27/24 00:00 10/27/24 00:00 Temperature 100.1 F H Pulse Rate 105 H 106 H Respiratory Rate 29 H Blood Pressure 169/60 H Pulse Oximetry 96 Oxygen Delivery Oxygen Flow Rate Fraction of Inspired Oxygen 30 10/27/24 00:00 10/27/24 01:54 10/27/24 01:54 Temperature Pulse Rate 106 H 96 96 Respiratory Rate 29 H 16 Blood Pressure Pulse Oximetry 97 Oxygen Delivery Mechanical Ventilation Oxygen Flow Rate Fraction of Inspired Oxygen 30 10/27/24 02:00 10/27/24 02:00 10/27/24 02:00 Temperature 99.6 F Pulse Rate 93 96 96 Respiratory Rate 24 H 24 H Blood Pressure 152/54 H Pulse Oximetry 97 Oxygen Delivery Oxygen Flow Rate Fraction of Inspired Oxygen 10/27/24 02:10 10/27/24 04:00 10/27/24 04:00 Temperature Pulse Rate 96 87 Respiratory Rate 16 Blood Pressure Pulse Oximetry 97 Oxygen Delivery Mechanical Ventilation Oxygen Flow Rate Fraction of Inspired Oxygen 30 10/27/24 04:00 10/27/24 04:00 10/27/24 04:00 Temperature 99 F Pulse Rate 88 88 Respiratory Rate 20 20 Blood Pressure 141/47 H Pulse Oximetry 97 Oxygen Delivery Oxygen Flow Rate Fraction of Inspired Oxygen 30 10/27/24 05:45 10/27/24 06:00 10/27/24 06:00 Temperature Pulse Rate 89 89 89 Respiratory Rate 25 H Blood Pressure Pulse Oximetry 97 Oxygen Delivery Mechanical Ventilation Oxygen Flow Rate Fraction of Inspired Oxygen 30 10/27/24 06:00 10/27/24 06:33 10/27/24 08:00 Temperature 98.3 F 98.1 F Pulse Rate 89 86 Respiratory Rate 25 H 28 H Blood Pressure 171/67 H 154/58 H 154/60 H Pulse Oximetry 97 97 Oxygen Delivery Oxygen Flow Rate Fraction of Inspired Oxygen 10/27/24 08:00 10/27/24 08:00 10/27/24 08:00 Temperature Pulse Rate 86 Respiratory Rate Blood Pressure Pulse Oximetry 97 Oxygen Delivery Mechanical Ventilation Oxygen Flow Rate Fraction of Inspired Oxygen 30 30 10/27/24 08:38 10/27/24 08:47 10/27/24 08:52 Temperature Pulse Rate 84 83 84 Respiratory Rate 24 H 25 H Blood Pressure Pulse Oximetry Oxygen Delivery Oxygen Flow Rate Fraction of Inspired Oxygen 10/27/24 08:57 10/27/24 09:00 10/27/24 10:00 Temperature Pulse Rate 86 87 79 Respiratory Rate 24 H Blood Pressure Pulse Oximetry 97 Oxygen Delivery Mechanical Ventilation Oxygen Flow Rate Fraction of Inspired Oxygen 30 10/27/24 10:00 10/27/24 10:00 10/27/24 10:58 Temperature 98.1 F Pulse Rate 80 82 Respiratory Rate 21 H 22 H Blood Pressure 141/55 H Pulse Oximetry 97 96 Oxygen Delivery Nasal Cannula Oxygen Flow Rate 2 Fraction of Inspired Oxygen Intake/Output Intake/Output: Intake & Output 10/24/24 10/25/24 10/26/24 10/27/24 23:59 23:59 23:59 23:59 Intake Total 3293.7 2583.0 1474.6 964.7 Output Total 400 650 900 600 Balance 2893.7 1933.0 574.6 364.7 Meds/Results Medications: Active Medications Generic Name Dose Route Start Last Admin Trade Name Freq PRN Reason Stop Dose Admin Acetaminophen 650 mg 10/23/24 22:23 Acetaminophen 325 Mg Tablet PO Q4H PRN Mild Pain (1-3) or Fever Albuterol/Ipratropium 3 ml 10/24/24 14:00 10/27/24 08:51 Ipratropium 0.5 Mg/Albuterol Sulfate 2.5 Mg Ampul.Neb 3 Ml INHALATION 3 ml Q6HRT MP Administration Dextrose 12.5 gm 10/24/24 11:04 Dextrose 50% 25 Gm/50 Ml Syringe IV PUSH PRN PRN Hypoglycemia Protocol Enoxaparin Sodium 30 mg 10/24/24 09:00 10/24/24 09:51 Enoxaparin 30 Mg/0.3 Ml Syringe SUB-Q 30 mg DAILY MP Administration Glucagon 1 mg 10/24/24 11:04 Glucagon For Inj 1 Mg Vial IM PRN PRN Hypoglycemia Protocol Glucose 15 gm 10/24/24 11:04 Glucose Oral Gel 15 Gm Of Glucse In 37.5 Gm Tube PO PRN PRN Hypoglycemia Protocol Midazolam HCl 100 mg in 100 mls @ 0 mls/hr 10/24/24 00:20 10/26/24 10:30 Versed 100 Mg/Ns 100 Ml IV CONT 0 mg/hr .Q0M MP 0 mls/hr Titration Protocol Cefepime HCl 1 gm in 50 mls @ 100 mls/hr 10/24/24 09:00 10/27/24 09:30 Maxipime 1 Gm/Ns 50 Ml IVPB Infused Q12H MP Infusion Metronidazole 500 mg in 100 mls @ 100 mls/hr 10/24/24 11:00 10/27/24 07:14 Flagyl 500 Mg/Iso Soln 100 Ml IVPB Infused Q8HR MP Infusion Dextrose 1,000 mls @ 100 mls/hr 10/24/24 11:04 Dextrose 5% 1,000 Ml IVPB PRN PRN Hypoglycemia Protocol Doxycycline Hyclate 100 mg in 100 mls @ 100 mls/hr 10/25/24 13:15 10/27/24 09:45 Vibramycin 100 Mg/Ns 100 Ml IVPB 10/30/24 13:14 Infused Q12HR MP Infusion Dexmedetomidine HCl 400 mcg in 100 mls @ 0 mls/hr 10/26/24 23:05 10/27/24 10:00 Precedex 400 Mcg/100 Ml IV CONT 0 mcg/kg/hr .Q0M MP 0 mls/hr Titration Protocol Metoprolol Tartrate 12.5 mg 10/26/24 21:00 10/27/24 08:47 Metoprolol Tartrate 12.5 Mg Tablet PO 12.5 mg Q12HR MP Administration Multi-Ingred Cream/Lotion/Oil/Oint 1 applic 10/24/24 09:00 10/27/24 08:48 Mineral Oil/White Petrolatum Ointment EACH EYE 1 applic Q12HR MP Administration Pantoprazole Sodium 40 mg 10/24/24 21:00 10/27/24 08:47 Pantoprazole Sodium Iv 40 Mg Vial IV PUSH 40 mg Q12HR MP Administration Polyethylene Glycol 17 gm 10/27/24 09:00 10/27/24 08:47 Polyethylene Glycol 3350 17 Gm Powd.Pack PO 17 gm QAM MP Administration Senna/Docusate Sodium 1 tab 10/25/24 21:00 10/26/24 20:27 Senna/Docusate Sodium Tablet PO 1 tab HS MP Administration Sodium Bicarbonate 1,300 mg 10/26/24 18:00 10/27/24 08:47 Sodium Bicarbonate Tab 650 Mg Tablet PO 1,300 mg BIDPC MP Administration Sodium Chloride 20 ml 10/24/24 09:29 Central Line Flush IV PUSH PRN PRN after blood draws Sodium Chloride 10 ml 10/24/24 09:29 Central Line Flush IV PUSH PRN PRN with TPN bag changes Sodium Chloride 10 ml 10/24/24 14:00 10/27/24 06:11 Central Line Flush IV PUSH 10 ml Q8HR MP Administration Radiology Results: ITS Impressions Head CT 10/23/24 21:39 Impression: No acute intracranial hemorrhage or suspicious mass effect. Chest/Abdomen/Pelvis CTA 10/23/24 21:44 IMPRESSION: No acute intra-abdominal findings to explain patient's presentation. Mural thickening and edema within the gastric cardia and cecum. Endotracheal tube tip is at the level of the chikis for which withdrawal of approximately 2 cm is suggested for optimal placement. Orogastric tube extends to the second portion of the duodenum, and tenting of the wall is demonstrated. Withdrawal of approximately 9 to 10 cm is recommended for optimal placement and to decrease the risk of perforation. Abdomen X-Ray 10/23/24 23:14 IMPRESSION: Orogastric tube in good position and ready for immediate use. Renal Ultrasound 10/25/24 11:26 IMPRESSION: 1. Bilateral medical renal disease with increased cortical echogenicity and mild cortical thinning at both kidneys. No hydronephrosis. 2. Bilateral renal cysts simple renal cysts as well as a likely benign minimally complex Bosniak 2 complex cystic lesion with a few very thin internal septations in the left kidney. Chest X-Ray 10/27/24 06:42 IMPRESSION: 1. Stable diffuse bilateral lung disease which could represent mild pulmonary edema, atelectasis, pneumonia or most likely some combination thereof. 2. Cardiomegaly. Labs Labs: Laboratory Results - last 24 hr 10/27/24 10/27/24 10/27/24 05:45 06:08 10:34 WBC 6.7 RBC 2.65 L Hgb 8.1 L Hct 25.3 L MCV 95.5 MCH 30.6 MCHC 32.0 RDW 13.8 Plt Count 137 L MPV 10.8 H Immature Gran % (Auto) 0.9 H Neut % (Auto) 77.2 H Lymph % (Auto) 8.3 L Bartholomew % (Auto) 10.2 H Eos % (Auto) 3.0 Baso % (Auto) 0.4 Lymph # (Auto) 0.56 L Bartholomew # (Auto) 0.7 H Eos # (Auto) 0.2 Baso # (Auto) 0.0 Abs Immat Gran (auto) 0.06 H Absolute Neuts (auto) 5.2 Absolute Nucleated RBC 0.000 Nucleated RBC % 0.0 Puncture Site Left radial Left brachial ABG pH 7.364 7.380 ABG pCO2 38.4 36.7 ABG pO2 66.9 L 85.0 ABG PO2/FiO2 Ratio 2.23 2.83 ABG HCO3 21.4 L 21.2 L ABG O2 Saturation 92.8 L 96.3 ABG O2 Content 11.9 L 11.9 L ABG Base Excess -3.6 -3.5 A-a Gradient 101.9 85.8 Oxyhemoglobin 93.3 95.8 Carboxyhemoglobin 0.1 Methemoglobin 0.3 Reduced Hemoglobin 6.3 H Total Hemoglobin 9.0 L 8.7 L O2 Delivery Device Ventilator Ventilator O2 Liters/Min Not Reportable Not Reportable Minute Volume Not Reportable Not Reportable Vent Rate 18 Not Reportable Vent Mode Cmv Spontaneous FiO2 30 30 Tidal Volume 400 Not Reportable PEEP 5 5 Peak Inspir Pressure Not Reportable Not Reportable Pressure Support Not Reportable 8 Sodium 141 Potassium 4.5 Chloride 107 Carbon Dioxide 21 L Anion Gap 13 H BUN 62 H D Creatinine 3.33 H Estim Creat Clear Calc 11 Estimated GFR 16 L Glucose 123 H Calcium 8.6 Phosphorus 4.4 Magnesium 1.9 Total Bilirubin 0.5 AST 16 ALT 10 Alkaline Phosphatase 62 Total Protein 6.0 L Albumin 3.5 Vancomycin Trough 19.2 Quality VTE Prophylaxis VTE prophylaxis: mechanical ordered
[2024-10-27 11:50] LABS: Glucose Point of Care 107 mg/dl (65-105)
[2024-10-27] MEDS: METOPROLOL TARTRATE 50 MG TAB PO ×2 (12:06→21:18)
[2024-10-27] MEDS: hydrALAZINE HCL 20 MG/ML VIAL 10 MG IV PUSH ×3 (12:07→22:11)
--- NOTE | 2024-10-27 14:54 | PC.NURSE ---
Notified Dr Sánchez of PT RR 29-32. PT on 2L NC. Received order for 40mg of IV lasix once. Also notified MD that while turning and cleaning the patient she had 1 emesis episode. Order to connect NG tube to ILWS. Orders read back and verified.
[2024-10-27] MEDS: FUROSEMIDE INJ 40 MG/4 ML VIAL IV PUSH (15:11)
--- NOTE | 2024-10-27 17:23 | PC.NURSE ---
Notified Dr Sánchez that the patient had scant amount of blood in NG tube. Also notified MD of sustained systolic BP 170's. Received order to continue monitoring the tube and will assess labs in the morning. Received order for labetalol 20mg iv once. read back and verified.
[2024-10-27] MEDS: LABETALOL HCL INJ 100 MG/20 ML VIAL 20 MG IV PUSH (17:29)
[2024-10-27] MEDS: ACETAMINOPHEN 325 MG TABLET 650 MG PO (17:33)
[2024-10-27] MEDS: SENNA/DOCUSATE SODIUM TABLET 1 TAB PO (21:18)
[2024-10-28] VITALS (26 sets, daily range): BP systolic 124–181; BP diastolic 49–75; PULSE 73–92; RESP 6–31; TEMP 36.3–36.7; O2SAT 92–98
[2024-10-28] MEDS: LABETALOL HCL INJ 100 MG/20 ML VIAL 20 MG IV PUSH (00:19)
[2024-10-28] MEDS: amLODIPine BESYLATE 10 MG TABLET FEED TUBE (00:19)
[2024-10-28] MEDS: ONDANSETRON INJ 4 MG/2 ML VIAL IV PUSH (00:20)
[2024-10-28] MEDS: ACETAMINOPHEN 325 MG TABLET 650 MG PO (00:20)
[2024-10-28] MEDS: IPRATROPIUM 0.5 MG/ALBUTEROL SULFATE 2.5 MG AMPUL.NEB 3 ML INHALATION ×4 (02:49→21:38)
[2024-10-28] MEDS: metroNIDAZOLE 500 MG/ISO 100ML 500 MG/100 ML BAG 100 MG IVPB ×3 (06:06→22:32)
[2024-10-28] MEDS: CENTRAL LINE FLUSH 10 ML IV PUSH ×3 (06:06→21:57)
[2024-10-28 06:08] LABS: Basophils Percent Auto 0.5 % (0.2-1.2); Eosinophils Absolute Auto 0.1 K/mm3 (0-0.3); Eosinophils Percent Auto 1.3 % (0-4.4); Hematocrit 29.6 % (37.0-47.0); Hemoglobin 9.4 g/dL (12.0-15.0); Immature Granulocyte Percent A 1.2 % (0-0.5); Lymphocytes Absolute Auto 0.92 K/mm3 (0.9-3.2); Lymphocytes Percent Auto 11.1 % (18.3-44.2); Mean Corpuscular HGB Conc 31.8 g/dl (32-36); Mean Corpuscular Hemoglobin 29.9 pg (26-34); Mean Corpuscular Volume 94.3 fl (80-100); Mean Platelet Volume 10.2 fl (7.4-10.4); Monocytes Absolute Auto 0.8 K/mm3 (0.1-0.6); Neutrophils Absolute Auto 6.3 K/mm3 (1.3-6.7); Neutrophils Percent Auto 75.9 % (45.5-73.1); Platelet Count Result 196 k/mm3 (150-375); Red Blood Count 3.14 M/mm3 (4.2-5.4); Red Cell Distribution Width 13.8 % (11.5-14.5); White Blood Count 8.3 K/mm3 (4.5-10.0)
[2024-10-28 06:26] LABS: Alanine Aminotransferase 12 U/L (6-35); Albumin Level 3.6 g/dL (3.5-5.1); Alkaline Phosphatase 71 U/L (38-126); Anion Gap 13 mmol/L (4-12); Aspartate Amino Transferase 20 U/L (14-36); Bilirubin,Total 0.6 mg/dL (0.2-1.3); Blood Urea Nitrogen 74 mg/dL (7-17); Calcium 9.3 mg/dL (8.4-10.2); Carbon Dioxide 23 mmol/L (22-30); Chloride 107 mmol/L (98-107); Estimated CRCL calculation 11 ml/min; Estimated Glomerular Filt Rate 16; Glucose 108 mg/dL (65-110); Phosphorus 5.6 mg/dL (2.5-4.5); Potassium 4.5 mmol/L (3.4-5.0); Sodium 143 mmol/L (137-145)
--- NOTE | 2024-10-28 08:28 | P.PNIM_ITS ---
Progress Note: A&P Assessment and Plan (1) Diabetes: Code(s): E11.9 - Type 2 diabetes mellitus without complications Status: Chronic (2) Secondary hyperparathyroidism, not elsewhere classified: Code(s): E21.1 - Secondary hyperparathyroidism, not elsewhere classified Status: Acute Plan (1) Altered mental status: Qualifiers: Altered mental status type: unspecified Qualified Code(s): R41.82 - Altered mental status, unspecified Code(s): R41.82 - Altered mental status, unspecified Status: Acute Assessment and Plan: Patient was found unresponsive at home by her son, Upon EMS arrival she did have a pulse but was difficult to intubate so laryngeal airway was placed, patient brought to ED which she was intubated. Drug screen positive for benzodiazepines and cannabis , suspecting toxic encephalopathy Patient received fluid resuscitation Chronic patient is weak 10/23/2024: -CT brain with no acute intracranial hemorrhage or suspicious mass effect Acute Respiratory failure requiring intubation: Code(s): J96.90 - Respiratory failure, unspecified, unspecified whether with hypoxia or hypercapnia Status: Acute Assessment and Plan: Patient was unresponsive at home, had emesis. Failed intubation on side by EMS, laryngeal airway was inserted -10/23: Intubated upon arrival to the ER for airway protection and possible aspiration chest x-ray this morning showed: Worsening central congestive change and patchy bilateral airspace disease. Correlate for worsening pulmonary edema versus pneumonia. given history of asthma and COPD, continue bronchodilators Likely resulting from pneumonia, COPD exacerbation, substance abuse Patient was acid repeated October 27 Tolerated extubation Sepsis: Code(s): A41.9 - Sepsis, unspecified organism Status: Acute Assessment and Plan: Elevated lactic acidosis, hypotension,, respiratory failure, altered mental status -lactic acid trending down adequate IV fluid -according the son patient has not been taking adequate oral intake, liquids as well as solids for the last 2-3 weeks -could be hypovolemia secondary to decreased oral intake Received intravascular volume expansion with albumin continue cefepime and vancomycin (10/23) -continue doxycycline (10/25) -10/23: Preliminary blood cultures are negative 10/24/2024: Echocardiogram Summary 1. Complete two-dimensional, color flow and Doppler transthoracic echocardiogram is performed. 2. There is normal biventricular size and systolic function. 3. There is no significant valvular disease. 4. The atrial septum appears aneurysmal however there is no [id number] shunt by agitated saline study. Aspiration pneumonia: Code(s): J69.0 - Pneumonitis due to inhalation of food and vomit Status: Acute Assessment and Plan: Pt had emesis at home, possible aspiration pneumonitis/pneumonia 10/25: CXR: Worsening central congestive change and patchy bilateral airspace disease. Correlate for worsening pulmonary edema versus pneumonia -continue antibiotics as above Positive urine drug screen: Code(s): R82.5 - Elevated urine levels of drugs, medicaments and biological substances Status: Acute Assessment and Plan: Urine drug screen was positive for cannabinoids and benzodiazepine Hypoglycemia: Code(s): E16.2 - Hypoglycemia, unspecified Status: Acute Assessment and Plan: Patient has a history of type 2 diabetes, was hypoglycemic when EMS arrived, received dextrose -blood sugars have been stable -continue Accu-Cheks and sliding scale insulin SOLOMON on CKD Chronic kidney disease, stage 4 (severe): Code(s): N18.4 - Chronic kidney disease, stage 4 (severe) Status: Chronic Assessment and Plan: Acute on chronic kidney disease stage IV, creatinine was at baseline on admission, -patient has been adequately fluid-resuscitated, added albumin for further intravascular volume repletion -10/25: Elevated creatinine, patient also received contrast on admission, could be related to contrast induced nephropathy, sepsis -10/25: Renal ultrasound showed bilateral medical renal disease, bilateral renal cysts, no hydronephrosis or stones. -urine lytes was not prerenal, negative urine eosinophils, CK levels 289 -appreciate Nephrology evaluation and recommendations -continue monitor urine output, renal function and electrolytes -creatinine continues to rise but probably will plateau, patient continues to have urine output, Consult front end java developer for evaluation treatment HTN (hypertension): Code(s): I10 - Essential (primary) hypertension Status: Acute Assessment and Plan: History of essential hypertension, -will start metoprolol at half the dose that she takes at home -p.r.n. hydralazine Diabetes: Code(s): E11.9 - Type 2 diabetes mellitus without complications Status: Chronic Assessment and Plan: Accu-Cheks and sliding scale insulin Plan DVT prophylaxis: SCDs, hold chemoprophylaxis due to coffee-ground drainage in the OG tube, anemia Stress ulcer prophylaxis: Protonix IV q.12 hours Nutrition: All in tube feeds for possible extubation will add p.r.n. MiraLaaysha and senkenzie S Subjective Date/time seen: 10/28/24 08:28 Interval history: Patient was extubated yesterday, patient tolerated extubation well, still has cough and some shortness of breath. Patient has general weakness, denies focal weakness, denies chest pain abdomen pain nausea vomiting. Patient is afebrile, blood pressure stable, Labs reviewed, hemoglobin 9.4 above baseline, elevated BUN creatinine stable Exam Narrative: GENERAL: Ill-appearing in no acute distress. Well-nourished. - EYES: EOMI. Anicteric. - HENT: Moist mucous membranes. - LUNGS: Coarse breath sound bilaterall y, no wheezing, rhonchi, or rales. - CARDIOVASCULAR: Regular rate and rhyth m. No murmur. No JVD. - ABDOMEN: Soft, non-tender and non-dist ended. No palpable masses. - EXTREMITIES: No edema. Peripheral puls es 2+. Non-tender. - NEUROLOGIC: No focal neurological defi cits. CN II-XII grossly intact. General weakness - PSYCHIATRIC: Awake, Alert and oriented x 3. Appropriate mood and affect. - SKIN: No rashes or lesions. Warm. - LYMPH: No cervical lymphadenopathy. Objective Data Vital Signs Vital Signs: Vital Signs - 24 hr 10/27/24 08:38 10/27/24 08:47 10/27/24 08:52 Temperature Pulse Rate 84 83 84 Respiratory Rate 24 H 25 H Blood Pressure Pulse Oximetry Oxygen Delivery Oxygen Flow Rate Fraction of Inspired Oxygen 10/27/24 08:57 10/27/24 09:00 10/27/24 10:00 Temperature Pulse Rate 86 87 79 Respiratory Rate 24 H Blood Pressure Pulse Oximetry 97 Oxygen Delivery Mechanical Ventilation Oxygen Flow Rate Fraction of Inspired Oxygen 30 10/27/24 10:00 10/27/24 10:00 10/27/24 10:58 Temperature 98.1 F Pulse Rate 80 82 Respiratory Rate 21 H 22 H Blood Pressure 141/55 H Pulse Oximetry 97 96 Oxygen Delivery Nasal Cannula Oxygen Flow Rate 2 Fraction of Inspired Oxygen 10/27/24 12:00 10/27/24 12:00 10/27/24 12:00 Temperature 98.5 F Pulse Rate 95 93 Respiratory Rate 25 H Blood Pressure 175/71 H Pulse Oximetry 96 96 Oxygen Delivery Nasal Cannula Oxygen Flow Rate 2 Fraction of Inspired Oxygen 10/27/24 12:00 10/27/24 12:06 10/27/24 13:47 Temperature Pulse Rate 95 92 92 Respiratory Rate 25 H 26 H Blood Pressure Pulse Oximetry Oxygen Delivery Oxygen Flow Rate Fraction of Inspired Oxygen 10/27/24 13:54 10/27/24 14:00 10/27/24 14:00 Temperature 98.5 F Pulse Rate 91 92 98 Respiratory Rate 28 H 26 H Blood Pressure 165/62 H Pulse Oximetry 95 Oxygen Delivery Oxygen Flow Rate Fraction of Inspired Oxygen 10/27/24 14:00 10/27/24 16:00 10/27/24 16:00 Temperature 98.5 F Pulse Rate 92 84 Respiratory Rate 26 H 25 H Blood Pressure 177/78 H Pulse Oximetry 95 95 Oxygen Delivery Nasal Cannula Oxygen Flow Rate 2 Fraction of Inspired Oxygen 10/27/24 16:00 10/27/24 16:03 10/27/24 17:00 Temperature Pulse Rate 85 88 Respiratory Rate 24 H Blood Pressure 175/67 H Pulse Oximetry Oxygen Delivery Oxygen Flow Rate Fraction of Inspired Oxygen 10/27/24 17:29 10/27/24 18:00 10/27/24 18:00 Temperature 97.9 F Pulse Rate 89 88 88 Respiratory Rate 27 H Blood Pressure 177/79 H Pulse Oximetry 96 Oxygen Delivery Oxygen Flow Rate Fraction of Inspired Oxygen 10/27/24 18:07 10/27/24 18:17 10/27/24 20:00 Temperature Pulse Rate 88 Respiratory Rate 27 H Blood Pressure 164/70 H Pulse Oximetry 97 Oxygen Delivery Nasal Cannula Oxygen Flow Rate 2 Fraction of Inspired Oxygen 10/27/24 20:00 10/27/24 20:00 10/27/24 20:01 Temperature 98.0 F Pulse Rate 89 89 Respiratory Rate 25 H Blood Pressure 163/68 H Pulse Oximetry 97 98 Oxygen Delivery Nasal Cannula Oxygen Flow Rate 2 Fraction of Inspired Oxygen 10/27/24 20:01 10/27/24 20:08 10/27/24 21:17 Temperature Pulse Rate 88 87 83 Respiratory Rate 23 H 22 H Blood Pressure Pulse Oximetry Oxygen Delivery Oxygen Flow Rate Fraction of Inspired Oxygen 10/27/24 21:18 10/27/24 22:00 10/27/24 22:00 Temperature 97.9 F Pulse Rate 83 83 83 Respiratory Rate 24 H Blood Pressure 174/71 H Pulse Oximetry 94 Oxygen Delivery Oxygen Flow Rate Fraction of Inspired Oxygen 10/28/24 00:00 10/28/24 00:00 10/28/24 00:00 Temperature 98.1 F Pulse Rate 90 90 Respiratory Rate 31 H Blood Pressure 181/75 H Pulse Oximetry 95 95 Oxygen Delivery Nasal Cannula Oxygen Flow Rate 2 Fraction of Inspired Oxygen 10/28/24 00:19 10/28/24 01:01 10/28/24 02:00 Temperature Pulse Rate 92 84 77 Respiratory Rate 20 Blood Pressure 147/61 H Pulse Oximetry 97 Oxygen Delivery Oxygen Flow Rate Fraction of Inspired Oxygen 10/28/24 02:00 10/28/24 02:50 10/28/24 02:57 Temperature 98.0 F Pulse Rate 77 82 78 Respiratory Rate 18 20 19 Blood Pressure 144/49 H Pulse Oximetry 97 Oxygen Delivery Oxygen Flow Rate Fraction of Inspired Oxygen 10/28/24 03:50 10/28/24 04:00 10/28/24 04:00 Temperature 97.7 F Pulse Rate 80 80 Respiratory Rate 6 L Blood Pressure 135/58 L Pulse Oximetry 96 97 Oxygen Delivery Nasal Cannula Oxygen Flow Rate 2 Fraction of Inspired Oxygen 10/28/24 06:00 10/28/24 06:00 Temperature 97.4 F L Pulse Rate 81 81 Respiratory Rate 17 Blood Pressure 161/62 H Pulse Oximetry 96 Oxygen Delivery Oxygen Flow Rate Fraction of Inspired Oxygen Intake/Output Intake/Output: Intake & Output 10/25/24 10/26/24 10/27/24 10/28/24 23:59 23:59 23:59 23:59 Intake Total 2583.0 1474.6 1314.7 60 Output Total 388 998 6750 1650 Balance 1933.0 574.6 -735.3 -1590 Meds/Results Medications: Active Medications Generic Name Dose Route Start Last Admin Trade Name Freq PRN Reason Stop Dose Admin Acetaminophen 650 mg 10/23/24 22:23 10/28/24 00:20 Acetaminophen 325 Mg Tablet PO 650 mg Q4H PRN Administration Mild Pain (1-3) or Fever Albuterol/Ipratropium 3 ml 10/24/24 14:00 10/28/24 02:49 Ipratropium 0.5 Mg/Albuterol Sulfate 2.5 Mg Ampul.Neb 3 Ml INHALATION 3 ml Q6HRT MP Administration Dextrose 12.5 gm 10/24/24 11:04 Dextrose 50% 25 Gm/50 Ml Syringe IV PUSH PRN PRN Hypoglycemia Protocol Enoxaparin Sodium 30 mg 10/24/24 09:00 10/24/24 09:51 Enoxaparin 30 Mg/0.3 Ml Syringe SUB-Q 30 mg DAILY MP Administration Glucagon 1 mg 10/24/24 11:04 Glucagon For Inj 1 Mg Vial IM PRN PRN Hypoglycemia Protocol Glucose 15 gm 10/24/24 11:04 Glucose Oral Gel 15 Gm Of Glucse In 37.5 Gm Tube PO PRN PRN Hypoglycemia Protocol Hydralazine HCl 10 mg 10/27/24 11:43 10/27/24 22:11 Hydralazine Hcl 20 Mg/Ml Vial IV PUSH 10 mg Q4H PRN Administration Blood Pressure - High Cefepime HCl 1 gm in 50 mls @ 100 mls/hr 10/24/24 09:00 10/27/24 22:04 Maxipime 1 Gm/Ns 50 Ml IVPB Infused Q12H MP Infusion Metronidazole 500 mg in 100 mls @ 100 mls/hr 10/24/24 11:00 10/28/24 06:06 Flagyl 500 Mg/Iso Soln 100 Ml IVPB 100 mls/hr Q8HR MP Administration Dextrose 1,000 mls @ 100 mls/hr 10/24/24 11:04 Dextrose 5% 1,000 Ml IVPB PRN PRN Hypoglycemia Protocol Doxycycline Hyclate 100 mg in 100 mls @ 100 mls/hr 10/25/24 13:15 10/27/24 22:25 Vibramycin 100 Mg/Ns 100 Ml IVPB 10/30/24 13:14 Infused Q12HR MP Infusion Metoprolol Tartrate 12.5 mg 10/26/24 21:00 10/27/24 21:17 Metoprolol Tartrate 12.5 Mg Tablet PO 12.5 mg Q12HR MP Administration Metoprolol Tartrate 50 mg 10/27/24 11:50 10/27/24 21:18 Metoprolol Tartrate 50 Mg Tab PO 50 mg Q12HR MP Administration Multi-Ingred Cream/Lotion/Oil/Oint 1 applic 10/24/24 09:00 10/27/24 21:18 Mineral Oil/White Petrolatum Ointment EACH EYE Not Given Q12HR MP Ondansetron HCl 4 mg 10/28/24 00:06 10/28/24 00:20 Ondansetron Inj 4 Mg/2 Ml Vial IV PUSH 4 mg Q6H PRN Administration Nausea And Vomiting Pantoprazole Sodium 40 mg 10/24/24 21:00 10/27/24 21:18 Pantoprazole Sodium Iv 40 Mg Vial IV PUSH 40 mg Q12HR MP Administration Polyethylene Glycol 17 gm 10/27/24 09:00 10/27/24 08:47 Polyethylene Glycol 3350 17 Gm Powd.Pack PO 17 gm QAM MP Administration Senna/Docusate Sodium 1 tab 10/25/24 21:00 10/27/24 21:18 Senna/Docusate Sodium Tablet PO 1 tab HS MP Administration Sodium Bicarbonate 1,300 mg 10/26/24 18:00 10/27/24 17:29 Sodium Bicarbonate Tab 650 Mg Tablet PO 1,300 mg BIDPC MP Administration Sodium Chloride 20 ml 10/24/24 09:29 Central Line Flush IV PUSH PRN PRN after blood draws Sodium Chloride 10 ml 10/24/24 09:29 Central Line Flush IV PUSH PRN PRN with TPN bag changes Sodium Chloride 10 ml 10/24/24 14:00 10/28/24 06:06 Central Line Flush IV PUSH 10 ml Q8HR MP Administration Radiology Results: ITS Impressions Head CT 10/23/24 21:39 Impression: No acute intracranial hemorrhage or suspicious mass effect. Chest/Abdomen/Pelvis CTA 10/23/24 21:44 IMPRESSION: No acute intra-abdominal findings to explain patient's presentation. Mural thickening and edema within the gastric cardia and cecum. Endotracheal tube tip is at the level of the chikis for which withdrawal of approximately 2 cm is suggested for optimal placement. Orogastric tube extends to the second portion of the duodenum, and tenting of the wall is demonstrated. Withdrawal of approximately 9 to 10 cm is recommended for optimal placement and to decrease the risk of perforation. Abdomen X-Ray 10/23/24 23:14 IMPRESSION: Orogastric tube in good position and ready for immediate use. Renal Ultrasound 10/25/24 11:26 IMPRESSION: 1. Bilateral medical renal disease with increased cortical echogenicity and mild cortical thinning at both kidneys. No hydronephrosis. 2. Bilateral renal cysts simple renal cysts as well as a likely benign minimally complex Bosniak 2 complex cystic lesion with a few very thin internal septations in the left kidney. Chest X-Ray 10/28/24 06:23 IMPRESSION: Small left-sided pleural effusion with multifocal infiltrates. Supportive lines and tubes in good position. Labs Labs: Laboratory Results - last 24 hr 10/27/24 10/27/24 10/28/24 10:34 11:39 06:02 WBC 8.3 RBC 3.14 L Hgb 9.4 L Hct 29.6 L MCV 94.3 MCH 29.9 MCHC 31.8 L RDW 13.8 Plt Count 196 MPV 10.2 Immature Gran % (Auto) 1.2 H Neut % (Auto) 75.9 H Lymph % (Auto) 11.1 L Winn % (Auto) 10.0 H Eos % (Auto) 1.3 Baso % (Auto) 0.5 Lymph # (Auto) 0.92 Winn # (Auto) 0.8 H Eos # (Auto) 0.1 Baso # (Auto) 0.0 Abs Immat Gran (auto) 0.10 H Absolute Neuts (auto) 6.3 Absolute Nucleated RBC 0.000 Nucleated RBC % 0.0 Puncture Site Left brachial ABG pH 7.380 ABG pCO2 36.7 ABG pO2 85.0 ABG PO2/FiO2 Ratio 2.83 ABG HCO3 21.2 L ABG O2 Saturation 96.3 ABG O2 Content 11.9 L ABG Base Excess -3.5 A-a Gradient 85.8 Oxyhemoglobin 95.8 Total Hemoglobin 8.7 L O2 Delivery Device Ventilator O2 Liters/Min Not Reportable Minute Volume Not Reportable Vent Rate Not Reportable Vent Mode Spontaneous FiO2 30 Tidal Volume Not Reportable PEEP 5 Peak Inspir Pressure Not Reportable Pressure Support 8 Sodium 143 Potassium 4.5 Chloride 107 Carbon Dioxide 23 Anion Gap 13 H BUN 74 H D Creatinine 3.33 H Estim Creat Clear Calc 11 Estimated GFR 16 L Glucose 108 POC Capillary Glucose 107 H Calcium 9.3 Phosphorus 5.6 H Magnesium 2.0 Total Bilirubin 0.6 AST 20 ALT 12 Alkaline Phosphatase 71 Total Protein 7.0 Albumin 3.6
[2024-10-28] MEDS: METOPROLOL TARTRATE 50 MG TAB 100 MG PO ×2 (08:45→21:58)
[2024-10-28] MEDS: SODIUM BICARBONATE TAB 650 MG TABLET 1300 MG PO ×2 (08:45→17:09)
[2024-10-28] MEDS: CEFEPIME 1 GM/NS 50 ML 1 GM/50 ML BAG IVPB ×2 (08:46→21:56)
[2024-10-28] MEDS: DOXYCYCLINE 100 MG/NS 100 ML 100 MG/100 ML BAG IVPB ×2 (08:46→21:56)
[2024-10-28] MEDS: PANTOPRAZOLE SODIUM IV 40 MG VIAL IV PUSH ×2 (08:46→21:57)
[2024-10-28] MEDS: polyethylene glycoL 3350 17 GM POWD.PACK PO (08:46)
[2024-10-28] MEDS: hydrALAZINE HCL 20 MG/ML VIAL 10 MG IV PUSH (08:47)
--- NOTE | 2024-10-28 09:48 | P.PNNP_ITS ---
Progress Note: A&P Assessment and Plan (1) SOLOMON (acute kidney injury): Code(s): N17.9 - Acute kidney failure, unspecified Status: Acute Assessment and Plan: * at baseline on admission with worsening noted on 10/25 * suspect multifactorial etiology: * infection/sepsis (aspiration pneumonia) * hypoxia * contrast exposure (CTA C/A/P on 10/23/24) * relative hypotension on admission * diuretic use prior to admission * other(?) * evaluation to date noted: * renal u/s consistent with CKD with no acute issues * urine electrolytes prerenal (by FeUrea) * urine eosinophils negative * proteinuria noted * CPK mildly elevated but not enough to affect kidney function * still making urine: Urine output 1900 yesterday and 1350 overnight. * After extubation the patient's oxygenation dropped a little bit so she was given some Lasix. * volume status looks okay currently. on 2L of oxygen by nasal cannula. * Potassium and BUN are okay. * CO2 is better * her creatinine is the same today as yesterday BUN is down. Hopefully numbers will continue to improve (2) Chronic kidney disease, stage 4 (severe): Code(s): N18.4 - Chronic kidney disease, stage 4 (severe) Status: Chronic Assessment and Plan: * baseline creatinine seems to run ~ 1.8 - 2.6mg/dl in the last few years * likely secondary to hypertension, diabetes, vascular disease, and YAMILKA based on outpatient evaluation (3) Acute hypoxemic respiratory failure: Code(s): J96.01 - Acute respiratory failure with hypoxia Status: Acute Assessment and Plan: * initially due to COPD , pneumonia, and fluid. * complicated by known history of COPD * on bronchodilators and cefepime, doxy, Flagyl, and vanco * off the ventilator (4) Altered mental status: Qualifiers: Altered mental status type: unspecified Qualified Code(s): R41.82 - Altered mental status, unspecified Code(s): R41.82 - Altered mental status, unspecified Status: Acute Assessment and Plan: * mental status much better. (5) Sepsis: Code(s): A41.9 - Sepsis, unspecified organism Status: Acute Assessment and Plan: * as noted by presentation - low BP/hypotension, acute respiratory failure, AMS, and lactic acidosis * s/p aggressive IVF resuscitation * lactic acid down trending * suspect several issues to blame: * diminished oral intake/prerenal factors * infection (aspiration pneumonia) * other (?) * no need for vasopressor therapy * Finished antibiotics for the above however now back on cefepime for paratracheal secretions * urinalysis is bland * white count okay and temperature is normal. (6) Aspiration pneumonia: Code(s): J69.0 - Pneumonitis due to inhalation of food and vomit Status: Acute Assessment and Plan: * on multiple antibiotics (7) HTN (hypertension): Code(s): I10 - Essential (primary) hypertension Status: Acute Assessment and Plan: * Systolic 130-160 * Metoprolol just restarted on Tuesday. 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 patient is awake. She was extubated patient is interactive. She recognizes me Exam Narrative: WDWN female on the ventilator and sedated in NAD skin no rash or subcu nodules head ncat lungs coarse bilaterally but moving air well cor reg no rub or gallop abd BS+ nontender and soft ext trace bilateral edema. Objective Data Vital Signs Vital Signs: Vital Signs - 24 hr 10/27/24 10:00 10/27/24 10:00 10/27/24 10:00 Temperature 98.1 F Pulse Rate 79 80 82 Respiratory Rate 21 H 22 H Blood Pressure 141/55 H Pulse Oximetry 97 Oxygen Delivery Oxygen Flow Rate 10/27/24 10:58 10/27/24 12:00 10/27/24 12:00 Temperature 98.5 F Pulse Rate 95 Respiratory Rate 25 H Blood Pressure 175/71 H Pulse Oximetry 96 96 96 Oxygen Delivery Nasal Cannula Nasal Cannula Oxygen Flow Rate 2 2 10/27/24 12:00 10/27/24 12:00 10/27/24 12:06 Temperature Pulse Rate 93 95 92 Respiratory Rate 25 H Blood Pressure Pulse Oximetry Oxygen Delivery Oxygen Flow Rate 10/27/24 13:47 10/27/24 13:54 10/27/24 14:00 Temperature 98.5 F Pulse Rate 92 91 92 Respiratory Rate 26 H 28 H 26 H Blood Pressure 165/62 H Pulse Oximetry 95 Oxygen Delivery Oxygen Flow Rate 10/27/24 14:00 10/27/24 14:00 10/27/24 16:00 Temperature Pulse Rate 98 92 Respiratory Rate 26 H Blood Pressure Pulse Oximetry 95 Oxygen Delivery Nasal Cannula Oxygen Flow Rate 2 10/27/24 16:00 10/27/24 16:00 10/27/24 16:03 Temperature 98.5 F Pulse Rate 84 85 88 Respiratory Rate 25 H 24 H Blood Pressure 177/78 H Pulse Oximetry 95 Oxygen Delivery Oxygen Flow Rate 10/27/24 17:00 10/27/24 17:29 10/27/24 18:00 Temperature Pulse Rate 89 88 Respiratory Rate Blood Pressure 175/67 H Pulse Oximetry Oxygen Delivery Oxygen Flow Rate 10/27/24 18:00 10/27/24 18:07 10/27/24 18:17 Temperature 97.9 F Pulse Rate 88 88 Respiratory Rate 27 H 27 H Blood Pressure 177/79 H 164/70 H Pulse Oximetry 96 Oxygen Delivery Oxygen Flow Rate 10/27/24 20:00 10/27/24 20:00 10/27/24 20:00 Temperature 98.0 F Pulse Rate 89 89 Respiratory Rate 25 H Blood Pressure 163/68 H Pulse Oximetry 97 97 Oxygen Delivery Nasal Cannula Oxygen Flow Rate 2 10/27/24 20:01 10/27/24 20:01 10/27/24 20:08 Temperature Pulse Rate 88 87 Respiratory Rate 23 H 22 H Blood Pressure Pulse Oximetry 98 Oxygen Delivery Nasal Cannula Oxygen Flow Rate 2 10/27/24 21:17 10/27/24 21:18 10/27/24 22:00 Temperature Pulse Rate 83 83 83 Respiratory Rate Blood Pressure Pulse Oximetry Oxygen Delivery Oxygen Flow Rate 10/27/24 22:00 10/28/24 00:00 10/28/24 00:00 Temperature 97.9 F 98.1 F Pulse Rate 83 90 Respiratory Rate 24 H 31 H Blood Pressure 174/71 H 181/75 H Pulse Oximetry 94 95 95 Oxygen Delivery Nasal Cannula Oxygen Flow Rate 2 10/28/24 00:00 10/28/24 00:19 10/28/24 01:01 Temperature Pulse Rate 90 92 84 Respiratory Rate 20 Blood Pressure 147/61 H Pulse Oximetry 97 Oxygen Delivery Oxygen Flow Rate 10/28/24 02:00 10/28/24 02:00 10/28/24 02:50 Temperature 98.0 F Pulse Rate 77 77 82 Respiratory Rate 18 20 Blood Pressure 144/49 H Pulse Oximetry 97 Oxygen Delivery Oxygen Flow Rate 10/28/24 02:57 10/28/24 03:50 10/28/24 04:00 Temperature Pulse Rate 78 80 Respiratory Rate 19 Blood Pressure Pulse Oximetry 96 Oxygen Delivery Nasal Cannula Oxygen Flow Rate 2 10/28/24 04:00 10/28/24 06:00 10/28/24 06:00 Temperature 97.7 F 97.4 F L Pulse Rate 80 81 81 Respiratory Rate 6 L 17 Blood Pressure 135/58 L 161/62 H Pulse Oximetry 97 96 Oxygen Delivery Oxygen Flow Rate 10/28/24 08:00 10/28/24 08:45 Temperature Pulse Rate 83 Respiratory Rate Blood Pressure Pulse Oximetry 97 Oxygen Delivery Nasal Cannula Oxygen Flow Rate 2 Intake/Output Intake/Output: Intake & Output 10/25/24 10/26/24 10/27/24 10/28/24 23:59 23:59 23:59 23:59 Intake Total 2583.0 1474.6 1314.7 160 Output Total 596 076 7562 1650 Balance 1933.0 574.6 -735.3 -1490 Meds/Results Medications: Active Medications Generic Name Dose Route Start Last Admin Trade Name Freq PRN Reason Stop Dose Admin Acetaminophen 650 mg 10/23/24 22:23 10/28/24 00:20 Acetaminophen 325 Mg Tablet PO 650 mg Q4H PRN Administration Mild Pain (1-3) or Fever Albuterol/Ipratropium 3 ml 10/24/24 14:00 10/28/24 02:49 Ipratropium 0.5 Mg/Albuterol Sulfate 2.5 Mg Ampul.Neb 3 Ml INHALATION 3 ml Q6HRT MP Administration Dextrose 12.5 gm 10/24/24 11:04 Dextrose 50% 25 Gm/50 Ml Syringe IV PUSH PRN PRN Hypoglycemia Protocol Enoxaparin Sodium 30 mg 10/24/24 09:00 10/24/24 09:51 Enoxaparin 30 Mg/0.3 Ml Syringe SUB-Q 30 mg DAILY MP Administration Glucagon 1 mg 10/24/24 11:04 Glucagon For Inj 1 Mg Vial IM PRN PRN Hypoglycemia Protocol Glucose 15 gm 10/24/24 11:04 Glucose Oral Gel 15 Gm Of Glucse In 37.5 Gm Tube PO PRN PRN Hypoglycemia Protocol Hydralazine HCl 10 mg 10/27/24 11:43 10/28/24 08:47 Hydralazine Hcl 20 Mg/Ml Vial IV PUSH 10 mg Q4H PRN Administration Blood Pressure - High Cefepime HCl 1 gm in 50 mls @ 100 mls/hr 10/24/24 09:00 10/28/24 08:46 Maxipime 1 Gm/Ns 50 Ml IVPB 100 mls/hr Q12H MP Administration Metronidazole 500 mg in 100 mls @ 100 mls/hr 10/24/24 11:00 10/28/24 08:47 Flagyl 500 Mg/Iso Soln 100 Ml IVPB Infused Q8HR MP Infusion Dextrose 1,000 mls @ 100 mls/hr 10/24/24 11:04 Dextrose 5% 1,000 Ml IVPB PRN PRN Hypoglycemia Protocol Doxycycline Hyclate 100 mg in 100 mls @ 100 mls/hr 10/25/24 13:15 10/28/24 08:46 Vibramycin 100 Mg/Ns 100 Ml IVPB 10/30/24 13:14 100 mls/hr Q12HR MP Administration Metoprolol Tartrate 100 mg 10/28/24 09:00 10/28/24 08:45 Metoprolol Tartrate 50 Mg Tab PO 100 mg Q12HR MP Administration Nifedipine 10 mg 10/28/24 12:00 Nifedipine 10 Mg Capsule PO Q6HR MP Ondansetron HCl 4 mg 10/28/24 00:06 10/28/24 00:20 Ondansetron Inj 4 Mg/2 Ml Vial IV PUSH 4 mg Q6H PRN Administration Nausea And Vomiting Pantoprazole Sodium 40 mg 10/24/24 21:00 10/28/24 08:46 Pantoprazole Sodium Iv 40 Mg Vial IV PUSH 40 mg Q12HR MP Administration Polyethylene Glycol 17 gm 10/27/24 09:00 10/28/24 08:46 Polyethylene Glycol 3350 17 Gm Powd.Pack PO 17 gm QAM MP Administration Senna/Docusate Sodium 1 tab 10/25/24 21:00 10/27/24 21:18 Senna/Docusate Sodium Tablet PO 1 tab HS MP Administration Sodium Bicarbonate 1,300 mg 10/26/24 18:00 10/28/24 08:45 Sodium Bicarbonate Tab 650 Mg Tablet PO 1,300 mg BIDPC MP Administration Sodium Chloride 20 ml 10/24/24 09:29 Central Line Flush IV PUSH PRN PRN after blood draws Sodium Chloride 10 ml 10/24/24 09:29 Central Line Flush IV PUSH PRN PRN with TPN bag changes Sodium Chloride 10 ml 10/24/24 14:00 10/28/24 06:06 Central Line Flush IV PUSH 10 ml Q8HR MP Administration Radiology Results: ITS Impressions Head CT 10/23/24 21:39 Impression: No acute intracranial hemorrhage or suspicious mass effect. Chest/Abdomen/Pelvis CTA 10/23/24 21:44 IMPRESSION: No acute intra-abdominal findings to explain patient's presentation. Mural thickening and edema within the gastric cardia and cecum. Endotracheal tube tip is at the level of the chikis for which withdrawal of approximately 2 cm is suggested for optimal placement. Orogastric tube extends to the second portion of the duodenum, and tenting of the wall is demonstrated. Withdrawal of approximately 9 to 10 cm is recommended for optimal placement and to decrease the risk of perforation. Abdomen X-Ray 10/23/24 23:14 IMPRESSION: Orogastric tube in good position and ready for immediate use. Renal Ultrasound 10/25/24 11:26 IMPRESSION: 1. Bilateral medical renal disease with increased cortical echogenicity and mild cortical thinning at both kidneys. No hydronephrosis. 2. Bilateral renal cysts simple renal cysts as well as a likely benign minimally complex Bosniak 2 complex cystic lesion with a few very thin internal septations in the left kidney. Chest X-Ray 10/28/24 06:23 IMPRESSION: Small left-sided pleural effusion with multifocal infiltrates. Supportive lines and tubes in good position. Labs Labs: Laboratory Results - last 24 hr 10/27/24 10/27/24 10/28/24 10:34 11:39 06:02 WBC 8.3 RBC 3.14 L Hgb 9.4 L Hct 29.6 L MCV 94.3 MCH 29.9 MCHC 31.8 L RDW 13.8 Plt Count 196 MPV 10.2 Immature Gran % (Auto) 1.2 H Neut % (Auto) 75.9 H Lymph % (Auto) 11.1 L Garza % (Auto) 10.0 H Eos % (Auto) 1.3 Baso % (Auto) 0.5 Lymph # (Auto) 0.92 Garza # (Auto) 0.8 H Eos # (Auto) 0.1 Baso # (Auto) 0.0 Abs Immat Gran (auto) 0.10 H Absolute Neuts (auto) 6.3 Absolute Nucleated RBC 0.000 Nucleated RBC % 0.0 Puncture Site Left brachial ABG pH 7.380 ABG pCO2 36.7 ABG pO2 85.0 ABG PO2/FiO2 Ratio 2.83 ABG HCO3 21.2 L ABG O2 Saturation 96.3 ABG O2 Content 11.9 L ABG Base Excess -3.5 A-a Gradient 85.8 Oxyhemoglobin 95.8 Total Hemoglobin 8.7 L O2 Delivery Device Ventilator O2 Liters/Min Not Reportable Minute Volume Not Reportable Vent Rate Not Reportable Vent Mode Spontaneous FiO2 30 Tidal Volume Not Reportable PEEP 5 Peak Inspir Pressure Not Reportable Pressure Support 8 Sodium 143 Potassium 4.5 Chloride 107 Carbon Dioxide 23 Anion Gap 13 H BUN 74 H D Creatinine 3.33 H Estim Creat Clear Calc 11 Estimated GFR 16 L Glucose 108 POC Capillary Glucose 107 H Calcium 9.3 Phosphorus 5.6 H Magnesium 2.0 Total Bilirubin 0.6 AST 20 ALT 12 Alkaline Phosphatase 71 Total Protein 7.0 Albumin 3.6
--- NOTE | 2024-10-28 10:47 | P.PNINT_ITS ---
Progress Note: A&P Assessment and Plan (1) Altered mental status: Qualifiers: Altered mental status type: unspecified Qualified Code(s): R41.82 - Altered mental status, unspecified Code(s): R41.82 - Altered mental status, unspecified Status: Acute Assessment and Plan: RESOLVED Patient was found unresponsive at home by her son, 3 hours after he gave her a CBD drink to calm her anxiety. Patient did have emesis at home, unknown if she had lost a pulse. Upon EMS arrival she did have a pulse but was difficult to intubate so laryngeal airway was placed, patient brought to ED which she was intubated. -urine drug screen was positive for benzodiazepines and cannabis which could possibly could have caused altered mental status. -patient given IV fluids, will monitor urine output to see if she can excrete these medications -adequately fluid-resuscitated, discontinue maintenance IV fluids 10/23/2024: -CT brain with no acute intracranial hemorrhage or suspicious mass effect (2) Respiratory failure requiring intubation: Code(s): J96.90 - Respiratory failure, unspecified, unspecified whether with hypoxia or hypercapnia Status: Acute Assessment and Plan: Patient was unresponsive at home, had emesis. Failed intubation on side by EMS, laryngeal airway was inserted -10/23: Intubated upon arrival to the ER for airway protection and possible aspiration 10/27: Extubated -currently on 2 L nasal cannula with good O2 sats, wean supplemental oxygen to maintain O2 sats > 92% -PT/OT to evaluate -speech therapy has been ordered for switch bedside swallow evaluation 10/23/2024: -CTA chest abdomen and pelvis: No acute intra-abdominal findings to explain patient's presentation. Mural thickening and edema within the gastric cardia and cecum. Endotracheal tube tip is at the level of the chikis for which withdrawal of approximately 2 cm is suggested for optimal placement. Orogastric tube extends to the second portion of the duodenum, and tenting of the wall is demonstrated. Withdrawal of approximately 9 to 10 cm is recommended for optimal placement and to decrease the risk of perforation. (3) Sepsis: Code(s): A41.9 - Sepsis, unspecified organism Status: Acute Assessment and Plan: RESOLVED Upon admission, patient had Elevated lactic acidosis, hypotension,, respiratory failure, altered mental status -lactic acid trending down adequate IV fluid -according the son patient has not been taking adequate oral intake, liquids as well as solids for the last 2-3 weeks -could be hypovolemia secondary to decreased oral intake -there is a history of CHF, chest x-ray was clear, given adequate amount of IV fluid -further intravascular volume expansion with albumin -blood pressures remain stable at this time, continue to monitor -patient does have a PICC line which was placed on 10/24/2024 -continue cefepime and doxycycline for total of 5 days -vancomycin was discontinued -10/24: MRSA screen was negative -10/23: blood cultures are negative 10/24/2024: Echocardiogram Summary 1. Complete two-dimensional, color flow and Doppler transthoracic echocardiogram is performed. 2. There is normal biventricular size and systolic function. 3. There is no significant valvular disease. 4. The atrial septum appears aneurysmal however there is no [id number] shunt by agitated saline study. (4) Aspiration pneumonia: Code(s): J69.0 - Pneumonitis due to inhalation of food and vomit Status: Acute Assessment and Plan: Pt had emesis at home, possible aspiration pneumonitis/pneumonia 10/25: CXR: Worsening central congestive change and patchy bilateral airspace disease. Correlate for worsening pulmonary edema versus pneumonia -continue antibiotics as above (5) Positive urine drug screen: Code(s): R82.5 - Elevated urine levels of drugs, medicaments and biological substances Status: Acute Assessment and Plan: Urine drug screen was positive for cannabinoids and benzodiazepine (6) Hypoglycemia: Code(s): E16.2 - Hypoglycemia, unspecified Status: Acute Assessment and Plan: Patient has a history of type 2 diabetes, was hypoglycemic when EMS arrived, received dextrose -blood sugars have been stable -continue Accu-Cheks and sliding scale insulin (7) Chronic kidney disease, stage 4 (severe): Code(s): N18.4 - Chronic kidney disease, stage 4 (severe) Status: Chronic Assessment and Plan: Acute on chronic kidney disease stage IV, creatinine was at baseline on admission, -patient has been adequately fluid-resuscitated, added albumin for further intravascular volume repletion -10/25: Elevated creatinine, patient also received contrast on admission, could be related to contrast induced nephropathy, sepsis -10/25: Renal ultrasound showed bilateral medical renal disease, bilateral renal cysts, no hydronephrosis or stones. -urine lytes was not prerenal, negative urine eosinophils, CK levels 289 -appreciate Nephrology evaluation and recommendations -continue monitor urine output, renal function and electrolytes -urine output has been adequate in response to diuresis, creatinine likely has plateaued/peak, will continue to monitor -discussed with Nephrology, hopefully numbers will improve (8) HTN (hypertension): Code(s): I10 - Essential (primary) hypertension Status: Acute Assessment and Plan: History of essential hypertension, -continue home dose metoprolol, added home nifedipine -p.r.n. hydralazine (9) Diabetes: Code(s): E11.9 - Type 2 diabetes mellitus without complications Status: Chronic Assessment and Plan: Accu-Cheks and sliding scale insulin Plan DVT prophylaxis: SCDs, hold chemoprophylaxis due to coffee-ground drainage in the OG tube, anemia Stress ulcer prophylaxis: Protonix IV q.12 hours Nutrition: NG tube in place, speech therapy has been ordered for bedside swallow evaluation. If if patient passes a bedside swallow evaluation will discontinue NG tube Code Status: Full code Critical Care Time Spent: 31 minutes Patient may transfer out of the ICU if okay with hospitalist Discuss with sounds and other family member and updated them with patient's condition and plan of care. I answered all the questions Due to a high probability of clinically significant, life threatening deterioration, the patient required my highest level of preparedness to intervene emergently and I personally spent this critical care time directly and personally managing the patient. This critical care time included obtaining a history; examining the patient; pulse oximetry; ordering and review of studies; arranging urgent treatment with development of a management plan; evaluation of patient's response to treatment; frequent reassessment; and discussions with other providers. It was exclusive of separately billable procedures and treating other patients and teaching time. Please see Assessment and Plan section and the rest of the note for further information on patient assessment and treatment This dictation may have been done utilizing a voice recognition system. Attempts have been made to correct errors. However, there may be uncorrected grammatical, spelling, and recognitions errors present. Subjective Date/time seen: 10/28/24 10:47 Interval history: Reason for consult: Unresponsive episode after being given CBD drink by her son, acute respiratory failure requiring intubation (10/23) 10/27: Extubated 10/28/2024: Patient seen and examined in the ICU, remains extubated on 2 L nasal cannula with adequate O2 sats. Is awake, alert, answers to questions and follows simple commands. Denies any shortness of breath, chest pain, nausea, vomiting, abdominal pain. Blood pressures have remained elevated requiring labetalol, amlodipine and hydralazine overnight. Urine output has been adequate , afebrile. Positive bowel movement Review of Systems Review of Systems: ROS unobtainable: Yes unobtainable due to endotracheal tube, unobtainable due to medical condition and unobtainable due to mental status Exam Narrative: General: Pleasant elderly female in no acute distress HEENT:? Pupil are equal and reactive, sclerae is clear, Neck:? Supple Respiratory:? Coarse breath sounds at bases,, overall better air entry, , no wheezing, Cardiac:? S1-S2 is normal, regular rate and rhythm Abdomen:? Soft, nontender, obese, hypoactive bowel sound, no tenderness to palpation Extremities:? No edema, palpable pedal pulse Neuro:? Patient is awake, alert, oriented to place and person. Follow simple commands and answers to questions. Skin:? Warm and dry, no skin lesions noted Psych:? Normal mentation and affect Objective Data Vital Signs Vital Signs: Vital Signs - 24 hr 10/27/24 10:58 10/27/24 12:00 10/27/24 12:00 Temperature 98.5 F Pulse Rate 95 Respiratory Rate 25 H Blood Pressure 175/71 H Pulse Oximetry 96 96 96 Oxygen Delivery Nasal Cannula Nasal Cannula Oxygen Flow Rate 2 2 10/27/24 12:00 10/27/24 12:00 10/27/24 12:06 Temperature Pulse Rate 93 95 92 Respiratory Rate 25 H Blood Pressure Pulse Oximetry Oxygen Delivery Oxygen Flow Rate 10/27/24 13:47 10/27/24 13:54 10/27/24 14:00 Temperature 98.5 F Pulse Rate 92 91 92 Respiratory Rate 26 H 28 H 26 H Blood Pressure 165/62 H Pulse Oximetry 95 Oxygen Delivery Oxygen Flow Rate 10/27/24 14:00 10/27/24 14:00 10/27/24 16:00 Temperature Pulse Rate 98 92 Respiratory Rate 26 H Blood Pressure Pulse Oximetry 95 Oxygen Delivery Nasal Cannula Oxygen Flow Rate 2 10/27/24 16:00 10/27/24 16:00 10/27/24 16:03 Temperature 98.5 F Pulse Rate 84 85 88 Respiratory Rate 25 H 24 H Blood Pressure 177/78 H Pulse Oximetry 95 Oxygen Delivery Oxygen Flow Rate 10/27/24 17:00 10/27/24 17:29 10/27/24 18:00 Temperature Pulse Rate 89 88 Respiratory Rate Blood Pressure 175/67 H Pulse Oximetry Oxygen Delivery Oxygen Flow Rate 10/27/24 18:00 10/27/24 18:07 10/27/24 18:17 Temperature 97.9 F Pulse Rate 88 88 Respiratory Rate 27 H 27 H Blood Pressure 177/79 H 164/70 H Pulse Oximetry 96 Oxygen Delivery Oxygen Flow Rate 10/27/24 20:00 10/27/24 20:00 10/27/24 20:00 Temperature 98.0 F Pulse Rate 89 89 Respiratory Rate 25 H Blood Pressure 163/68 H Pulse Oximetry 97 97 Oxygen Delivery Nasal Cannula Oxygen Flow Rate 2 10/27/24 20:01 10/27/24 20:01 10/27/24 20:08 Temperature Pulse Rate 88 87 Respiratory Rate 23 H 22 H Blood Pressure Pulse Oximetry 98 Oxygen Delivery Nasal Cannula Oxygen Flow Rate 2 10/27/24 21:17 10/27/24 21:18 10/27/24 22:00 Temperature Pulse Rate 83 83 83 Respiratory Rate Blood Pressure Pulse Oximetry Oxygen Delivery Oxygen Flow Rate 10/27/24 22:00 10/28/24 00:00 10/28/24 00:00 Temperature 97.9 F 98.1 F Pulse Rate 83 90 Respiratory Rate 24 H 31 H Blood Pressure 174/71 H 181/75 H Pulse Oximetry 94 95 95 Oxygen Delivery Nasal Cannula Oxygen Flow Rate 2 10/28/24 00:00 10/28/24 00:19 10/28/24 01:01 Temperature Pulse Rate 90 92 84 Respiratory Rate 20 Blood Pressure 147/61 H Pulse Oximetry 97 Oxygen Delivery Oxygen Flow Rate 10/28/24 02:00 10/28/24 02:00 10/28/24 02:50 Temperature 98.0 F Pulse Rate 77 77 82 Respiratory Rate 18 20 Blood Pressure 144/49 H Pulse Oximetry 97 Oxygen Delivery Oxygen Flow Rate 10/28/24 02:57 10/28/24 03:50 10/28/24 04:00 Temperature Pulse Rate 78 80 Respiratory Rate 19 Blood Pressure Pulse Oximetry 96 Oxygen Delivery Nasal Cannula Oxygen Flow Rate 2 10/28/24 04:00 02/16/25 06:00 10/28/24 06:00 Temperature 97.7 F 97.4 F L Pulse Rate 80 81 81 Respiratory Rate 6 L 17 Blood Pressure 135/58 L 161/62 H Pulse Oximetry 97 96 Oxygen Delivery Oxygen Flow Rate 10/28/24 08:00 10/28/24 08:00 10/28/24 08:00 Temperature 97.6 F Pulse Rate 83 83 Respiratory Rate 18 Blood Pressure 164/63 H Pulse Oximetry 97 97 Oxygen Delivery Nasal Cannula Oxygen Flow Rate 2 10/28/24 08:45 10/28/24 10:00 10/28/24 10:00 Temperature Pulse Rate 83 76 73 Respiratory Rate 19 Blood Pressure 143/58 H Pulse Oximetry 96 Oxygen Delivery Oxygen Flow Rate 10/28/24 10:36 Temperature Pulse Rate 79 Respiratory Rate 20 Blood Pressure Pulse Oximetry Oxygen Delivery Oxygen Flow Rate Intake/Output Intake/Output: Intake & Output 10/25/24 10/26/24 10/27/24 10/28/24 23:59 23:59 23:59 23:59 Intake Total 2583.0 1474.6 1314.7 310 Output Total 189 294 6415 1650 Balance 1933.0 574.6 -735.3 -1340 Meds/Results Medications: Active Medications Generic Name Dose Route Start Last Admin Trade Name Freq PRN Reason Stop Dose Admin Acetaminophen 650 mg 10/23/24 22:23 10/28/24 00:20 Acetaminophen 325 Mg Tablet PO 650 mg Q4H PRN Administration Mild Pain (1-3) or Fever Albuterol/Ipratropium 3 ml 10/24/24 14:00 10/28/24 10:36 Ipratropium 0.5 Mg/Albuterol Sulfate 2.5 Mg Ampul.Neb 3 Ml INHALATION 3 ml Q6HRT MP Administration Amlodipine Besylate 2.5 mg 10/29/24 09:00 Amlodipine Besylate 2.5 Mg Tablet PO QAM MP Dextrose 12.5 gm 10/24/24 11:04 Dextrose 50% 25 Gm/50 Ml Syringe IV PUSH PRN PRN Hypoglycemia Protocol Enoxaparin Sodium 30 mg 10/24/24 09:00 10/24/24 09:51 Enoxaparin 30 Mg/0.3 Ml Syringe SUB-Q 30 mg DAILY MP Administration Glucagon 1 mg 10/24/24 11:04 Glucagon For Inj 1 Mg Vial IM PRN PRN Hypoglycemia Protocol Glucose 15 gm 10/24/24 11:04 Glucose Oral Gel 15 Gm Of Glucse In 37.5 Gm Tube PO PRN PRN Hypoglycemia Protocol Hydralazine HCl 10 mg 10/27/24 11:43 10/28/24 08:47 Hydralazine Hcl 20 Mg/Ml Vial IV PUSH 10 mg Q4H PRN Administration Blood Pressure - High Cefepime HCl 1 gm in 50 mls @ 100 mls/hr 10/24/24 09:00 10/28/24 10:44 Maxipime 1 Gm/Ns 50 Ml IVPB Infused Q12H MP Infusion Metronidazole 500 mg in 100 mls @ 100 mls/hr 10/24/24 11:00 10/28/24 08:47 Flagyl 500 Mg/Iso Soln 100 Ml IVPB Infused Q8HR MP Infusion Dextrose 1,000 mls @ 100 mls/hr 10/24/24 11:04 Dextrose 5% 1,000 Ml IVPB PRN PRN Hypoglycemia Protocol Doxycycline Hyclate 100 mg in 100 mls @ 100 mls/hr 10/25/24 13:15 10/28/24 10:44 Vibramycin 100 Mg/Ns 100 Ml IVPB 10/30/24 13:14 Infused Q12HR MP Infusion Metoprolol Tartrate 100 mg 10/28/24 09:00 10/28/24 08:45 Metoprolol Tartrate 50 Mg Tab PO 100 mg Q12HR MP Administration Nifedipine 10 mg 10/28/24 12:00 Nifedipine 10 Mg Capsule PO Q6HR MP Ondansetron HCl 4 mg 10/28/24 00:06 10/28/24 00:20 Ondansetron Inj 4 Mg/2 Ml Vial IV PUSH 4 mg Q6H PRN Administration Nausea And Vomiting Pantoprazole Sodium 40 mg 10/24/24 21:00 10/28/24 08:46 Pantoprazole Sodium Iv 40 Mg Vial IV PUSH 40 mg Q12HR MP Administration Polyethylene Glycol 17 gm 10/27/24 09:00 10/28/24 08:46 Polyethylene Glycol 3350 17 Gm Powd.Pack PO 17 gm QAM MP Administration Senna/Docusate Sodium 1 tab 10/25/24 21:00 10/27/24 21:18 Senna/Docusate Sodium Tablet PO 1 tab HS MP Administration Sodium Bicarbonate 1,300 mg 10/26/24 18:00 10/28/24 08:45 Sodium Bicarbonate Tab 650 Mg Tablet PO 1,300 mg BIDPC MP Administration Sodium Chloride 20 ml 10/24/24 09:29 Central Line Flush IV PUSH PRN PRN after blood draws Sodium Chloride 10 ml 10/24/24 09:29 Central Line Flush IV PUSH PRN PRN with TPN bag changes Sodium Chloride 10 ml 10/24/24 14:00 10/28/24 06:06 Central Line Flush IV PUSH 10 ml Q8HR MP Administration Radiology Results: ITS Impressions Head CT 10/23/24 21:39 Impression: No acute intracranial hemorrhage or suspicious mass effect. Chest/Abdomen/Pelvis CTA 10/23/24 21:44 IMPRESSION: No acute intra-abdominal findings to explain patient's presentation. Mural thickening and edema within the gastric cardia and cecum. Endotracheal tube tip is at the level of the chikis for which withdrawal of approximately 2 cm is suggested for optimal placement. Orogastric tube extends to the second portion of the duodenum, and tenting of the wall is demonstrated. Withdrawal of approximately 9 to 10 cm is recommended for optimal placement and to decrease the risk of perforation. Abdomen X-Ray 10/23/24 23:14 IMPRESSION: Orogastric tube in good position and ready for immediate use. Renal Ultrasound 10/25/24 11:26 IMPRESSION: 1. Bilateral medical renal disease with increased cortical echogenicity and mild cortical thinning at both kidneys. No hydronephrosis. 2. Bilateral renal cysts simple renal cysts as well as a likely benign minimally complex Bosniak 2 complex cystic lesion with a few very thin internal septations in the left kidney. Chest X-Ray 10/28/24 06:23 IMPRESSION: Small left-sided pleural effusion with multifocal infiltrates. Supportive lines and tubes in good position. Labs Labs: Laboratory Results - last 24 hr 10/27/24 10/27/24 10/28/24 10:34 11:39 06:02 WBC 8.3 RBC 3.14 L Hgb 9.4 L Hct 29.6 L MCV 94.3 MCH 29.9 MCHC 31.8 L RDW 13.8 Plt Count 196 MPV 10.2 Immature Gran % (Auto) 1.2 H Neut % (Auto) 75.9 H Lymph % (Auto) 11.1 L [place] % (Auto) 10.0 H Eos % (Auto) 1.3 Baso % (Auto) 0.5 Lymph # (Auto) 0.92 [place] # (Auto) 0.8 H Eos # (Auto) 0.1 Baso # (Auto) 0.0 Abs Immat Gran (auto) 0.10 H Absolute Neuts (auto) 6.3 Absolute Nucleated RBC 0.000 Nucleated RBC % 0.0 Minute Volume Not Reportable Vent Rate Not Reportable Vent Mode Spontaneous Tidal Volume Not Reportable PEEP 5 Peak Inspir Pressure Not Reportable Pressure Support 8 Sodium 143 Potassium 4.5 Chloride 107 Carbon Dioxide 23 Anion Gap 13 H BUN 74 H D Creatinine 3.33 H Estim Creat Clear Calc 11 Estimated GFR 16 L Glucose 108 POC Capillary Glucose 107 H Calcium 9.3 Phosphorus 5.6 H Magnesium 2.0 Total Bilirubin 0.6 AST 20 ALT 12 Alkaline Phosphatase 71 Total Protein 7.0 Albumin 3.6 Quality VTE Prophylaxis VTE prophylaxis: mechanical ordered
[2024-10-28] MEDS: NIFEdipine 10 MG CAPSULE PO ×3 (11:07→23:50)
--- NOTE | 2024-10-28 18:38 | PC.NURSE ---
This patient, Madyson Giraldo, was transferred to [facility] on 10/28/24 at 1831. Personal belongings sent with patient. Report given to Ashley. Appropriate documentation sent with patient. Notified oncoming unit of patient's arrival and that bed alarm is on as well as telemetry box.
[2024-10-28] MEDS: SENNA/DOCUSATE SODIUM TABLET 1 TAB PO (21:58)
[2024-10-29] VITALS (17 sets, daily range): BP systolic 139–155; BP diastolic 52–89; PULSE 68–88; RESP 17–20; TEMP 36.5–37.3; O2SAT 90–98
[2024-10-29 05:19] LABS: Basophils Percent Auto 0.5 % (0.2-1.2); Eosinophils Absolute Auto 0.3 K/mm3 (0-0.3); Eosinophils Percent Auto 3.2 % (0-4.4); Hematocrit 28.2 % (37.0-47.0); Immature Granulocyte Absolute 0.12 K/mm3 (0.00-0.031); Immature Granulocyte Percent A 1.5 % (0-0.5); Lymphocytes Absolute Auto 0.88 K/mm3 (0.9-3.2); Lymphocytes Percent Auto 10.7 % (18.3-44.2); Mean Corpuscular HGB Conc 31.9 g/dl (32-36); Mean Corpuscular Hemoglobin 30.4 pg (26-34); Mean Corpuscular Volume 95.3 fl (80-100); Mean Platelet Volume 10.7 fl (7.4-10.4); Monocytes Absolute Auto 1.1 K/mm3 (0.1-0.6); Monocytes Percent Auto 13.2 % (2.6-8.5); Neutrophils Absolute Auto 5.8 K/mm3 (1.3-6.7); Neutrophils Percent Auto 70.9 % (45.5-73.1); Platelet Count Result 197 k/mm3 (150-375); Red Blood Count 2.96 M/mm3 (4.2-5.4); Red Cell Distribution Width 14.1 % (11.5-14.5); White Blood Count 8.2 K/mm3 (4.5-10.0)
[2024-10-29 05:30] LABS: Alanine Aminotransferase 11 U/L (6-35); Albumin Level 3.5 g/dL (3.5-5.1); Alkaline Phosphatase 66 U/L (38-126); Anion Gap 12 mmol/L (4-12); Aspartate Amino Transferase 18 U/L (14-36); Bilirubin,Total 0.5 mg/dL (0.2-1.3); Blood Urea Nitrogen 72 mg/dL (7-17); Calcium 9.4 mg/dL (8.4-10.2); Carbon Dioxide 25 mmol/L (22-30); Chloride 108 mmol/L (98-107); Estimated CRCL calculation 12 ml/min; Estimated Glomerular Filt Rate 18; Glucose 98 mg/dL (65-110); Phosphorus 4.3 mg/dL (2.5-4.5); Potassium 3.8 mmol/L (3.4-5.0); Sodium 145 mmol/L (137-145)
[2024-10-29] MEDS: metroNIDAZOLE 500 MG/ISO 100ML 500 MG/100 ML BAG 100 MG IVPB ×2 (06:03→14:19)
[2024-10-29] MEDS: NIFEdipine 10 MG CAPSULE PO ×3 (06:11→17:38)
[2024-10-29] MEDS: CENTRAL LINE FLUSH 10 ML IV PUSH ×3 (06:11→21:37)
--- NOTE | 2024-10-29 08:00 | P.PNIM_ITS ---
Progress Note: A&P Assessment and Plan (1) Diabetes: Code(s): E11.9 - Type 2 diabetes mellitus without complications Status: Chronic (2) Secondary hyperparathyroidism, not elsewhere classified: Code(s): E21.1 - Secondary hyperparathyroidism, not elsewhere classified Status: Acute Plan Altered mental status: Qualifiers: Altered mental status type: unspecified Qualified Code(s): R41.82 - Altered mental status, unspecified Code(s): R41.82 - Altered mental status, unspecified Status: Acute Assessment and Plan: Patient was found unresponsive at home by her son, Upon EMS arrival she did have a pulse but was difficult to intubate so laryngeal airway was placed, patient brought to ED which she was intubated. Drug screen positive for benzodiazepines and cannabis , suspecting toxic encephalopathy Patient received fluid resuscitation Chronic patient is weak 10/23/2024: -CT brain with no acute intracranial hemorrhage or suspicious mass effect, patient was suspect TIA vs stroke, MRI was not done due to intubation. given risk of stroke, will order MRI brain w/o contrast Acute Respiratory failure requiring intubation: Code(s): J96.90 - Respiratory failure, unspecified, unspecified whether with hypoxia or hypercapnia Status: Acute Assessment and Plan: Patient was unresponsive at home, had emesis. Failed intubation on side by EMS, laryngeal airway was inserted -10/23: Intubated upon arrival to the ER for airway protection and possible aspiration chest x-ray this morning showed: Worsening central congestive change and patchy bilateral airspace disease. Correlate for worsening pulmonary edema versus pneumonia. given history of asthma and COPD, continue bronchodilators Likely resulting from pneumonia, COPD exacerbation, substance abuse Patient was acid repeated October 27 Tolerated extubation Sepsis: Code(s): A41.9 - Sepsis, unspecified organism Status: Acute Assessment and Plan: Elevated lactic acidosis, hypotension,, respiratory failure, altered mental status -lactic acid trending down adequate IV fluid -according the son patient has not been taking adequate oral intake, liquids as well as solids for the last 2-3 weeks -could be hypovolemia secondary to decreased oral intake Received intravascular volume expansion with albumin continue cefepime and vancomycin (10/23) -continue doxycycline (10/25) -10/23: Preliminary blood cultures are negative 10/24/2024: Echocardiogram Summary 1. Complete two-dimensional, color flow and Doppler transthoracic echocardiogram is performed. 2. There is normal biventricular size and systolic function. 3. There is no significant valvular disease. 4. The atrial septum appears aneurysmal however there is no [id number] shunt by agitated saline study. Aspiration pneumonia: Code(s): J69.0 - Pneumonitis due to inhalation of food and vomit Status: Acute Assessment and Plan: Pt had emesis at home, possible aspiration pneumonitis/pneumonia 10/25: CXR: Worsening central congestive change and patchy bilateral airspace disease. Correlate for worsening pulmonary edema versus pneumonia -continue antibiotics as above Positive urine drug screen: Code(s): R82.5 - Elevated urine levels of drugs, medicaments and biological substances Status: Acute Assessment and Plan: Urine drug screen was positive for cannabinoids and benzodiazepine Hypoglycemia: Code(s): E16.2 - Hypoglycemia, unspecified Status: Acute Assessment and Plan: Patient has a history of type 2 diabetes, was hypoglycemic when EMS arrived, received dextrose -blood sugars have been stable -continue Accu-Cheks and sliding scale insulin SOLOMON on CKD Chronic kidney disease, stage 4 (severe): Code(s): N18.4 - Chronic kidney disease, stage 4 (severe) Status: Chronic Assessment and Plan: Acute on chronic kidney disease stage IV, creatinine was at baseline on admission, -patient has been adequately fluid-resuscitated, added albumin for further i ntravascular volume repletion -10/25: Elevated creatinine, patient also received contrast on admission, could be related to contrast induced nephropathy, sepsis -10/25: Renal ultrasound showed bilateral medical renal disease, bilateral renal cysts, no hydronephrosis or stones. -urine lytes was not prerenal, negative urine eosinophils, CK levels 289 -appreciate Nephrology evaluation and recommendations -continue monitor urine output, renal function and electrolytes -creatinine continues to rise but probably will plateau, patient continues to have urine output, Consult inspector structural bonding for evaluation treatment HTN (hypertension): Code(s): I10 - Essential (primary) hypertension Status: Acute Assessment and Plan: History of essential hypertension, -will start metoprolol at half the dose that she takes at home -p.r.n. hydralazine Diabetes: Code(s): E11.9 - Type 2 diabetes mellitus without complications Status: Chronic Assessment and Plan: Accu-Cheks and sliding scale insulin Plan DVT prophylaxis: SCDs, hold chemoprophylaxis due to coffee-ground drainage in the OG tube, anemia Stress ulcer prophylaxis: Protonix IV q.12 hours Nutrition: All in tube feeds for possible extubation will add p.r.n. MiraLax and senna S Consult PT OT cervical for evaluation and assisting placement Subjective Date/time seen: 10/29/24 08:00 Interval history: I saw examined patient presents patient's son. Patient still has general weakness, denies headache new focal weakness, patient also has cough with scant phlegm, patient has poor appetite, denies abdomen pain nausea vomiting diarrhea. Creatinine is trending down to 2.95 today, patient is on 2 L oxygen, still has general weakness Exam Narrative: GENERAL: Ill-appearing in no acute distress. Well-nourished. - EYES: EOMI. Anicteric. - HENT: Moist mucous membranes. - LUNGS: Coarse breath sound bilaterall y, no wheezing, rhonchi, or rales. - CARDIOVASCULAR: Regular rate and rhyth m. No murmur. No JVD. - ABDOMEN: Soft, non-tender and non-dist ended. No palpable masses. - EXTREMITIES: No edema. Peripheral puls es 2+. Non-tender. - NEUROLOGIC: No focal neurological defi cits. CN II-XII grossly intact. General weakness - PSYCHIATRIC: Awake, Alert and oriented x 3. Appropriate mood and affect. - SKIN: No rashes or lesions. Warm. - LYMPH: No cervical lymphadenopathy. Objective Data Vital Signs Vital Signs: Vital Signs - 24 hr 10/28/24 08:45 10/28/24 10:00 10/28/24 10:00 Temperature Pulse Rate 83 76 73 Respiratory Rate 19 Blood Pressure 143/58 H Pulse Oximetry 96 Oxygen Delivery Oxygen Flow Rate 10/28/24 10:36 10/28/24 10:48 10/28/24 12:00 Temperature 97.5 F L Pulse Rate 79 79 77 Respiratory Rate 20 21 H 19 Blood Pressure 124/50 L Pulse Oximetry 92 Oxygen Delivery Oxygen Flow Rate 10/28/24 12:00 10/28/24 14:00 10/28/24 14:33 Temperature Pulse Rate 78 80 77 Respiratory Rate 17 Blood Pressure Pulse Oximetry Oxygen Delivery Oxygen Flow Rate 10/28/24 14:43 10/28/24 16:00 10/28/24 16:00 Temperature 97.8 F Pulse Rate 80 83 79 Respiratory Rate 20 18 Blood Pressure 158/60 H Pulse Oximetry 96 Oxygen Delivery Oxygen Flow Rate 10/28/24 18:00 10/28/24 20:00 10/28/24 20:00 Temperature 97.3 F L Pulse Rate 89 91 83 Respiratory Rate 20 Blood Pressure 166/55 H Pulse Oximetry 98 Oxygen Delivery Oxygen Flow Rate 10/28/24 20:00 10/28/24 21:38 10/28/24 21:44 Temperature Pulse Rate 85 85 Respiratory Rate 18 Blood Pressure Pulse Oximetry 98 95 Oxygen Delivery Nasal Cannula Nasal Cannula Oxygen Flow Rate 2 2 10/28/24 21:47 10/28/24 21:58 10/28/24 23:46 Temperature 97.5 F L Pulse Rate 82 85 76 Respiratory Rate 18 20 Blood Pressure 152/61 H Pulse Oximetry 96 Oxygen Delivery Oxygen Flow Rate 10/29/24 00:00 10/29/24 04:00 10/29/24 04:00 Temperature 97.8 F Pulse Rate 73 80 81 Respiratory Rate 20 Blood Pressure 150/54 H Pulse Oximetry 94 Oxygen Delivery Oxygen Flow Rate Intake/Output Intake/Output: Intake & Output 10/26/24 10/27/24 10/28/24 10/29/24 23:59 23:59 23:59 23:59 Intake Total 1474.6 1314.7 860 150 Output Total 900 2050 2450 750 Balance 574.6 -735.3 -1590 -600 Meds/Results Medications: Active Medications Generic Name Dose Route Start Last Admin Trade Name Freq PRN Reason Stop Dose Admin Acetaminophen 650 mg 10/23/24 22:23 10/28/24 00:20 Acetaminophen 325 Mg Tablet PO 650 mg Q4H PRN Administration Mild Pain (1-3) or Fever Albuterol/Ipratropium 3 ml 10/24/24 14:00 10/29/24 04:20 Ipratropium 0.5 Mg/Albuterol Sulfate 2.5 Mg Ampul.Neb 3 Ml INHALATION Not Given Q6HRT MP Amlodipine Besylate 2.5 mg 10/29/24 09:00 Amlodipine Besylate 2.5 Mg Tablet PO QAM MP Dextrose 12.5 gm 10/24/24 11:04 Dextrose 50% 25 Gm/50 Ml Syringe IV PUSH PRN PRN Hypoglycemia Protocol Enoxaparin Sodium 30 mg 10/24/24 09:00 10/24/24 09:51 Enoxaparin 30 Mg/0.3 Ml Syringe SUB-Q 30 mg DAILY MP Administration Glucagon 1 mg 10/24/24 11:04 Glucagon For Inj 1 Mg Vial IM PRN PRN Hypoglycemia Protocol Glucose 15 gm 10/24/24 11:04 Glucose Oral Gel 15 Gm Of Glucse In 37.5 Gm Tube PO PRN PRN Hypoglycemia Protocol Hydralazine HCl 10 mg 10/27/24 11:43 10/28/24 08:47 Hydralazine Hcl 20 Mg/Ml Vial IV PUSH 10 mg Q4H PRN Administration Blood Pressure - High Cefepime HCl 1 gm in 50 mls @ 100 mls/hr 10/24/24 09:00 10/28/24 22:26 Maxipime 1 Gm/Ns 50 Ml IVPB 10/29/24 23:59 Infused Q12H MP Infusion Metronidazole 500 mg in 100 mls @ 100 mls/hr 10/24/24 11:00 10/29/24 06:03 Flagyl 500 Mg/Iso Soln 100 Ml IVPB 100 mls/hr Q8HR MP Administration Dextrose 1,000 mls @ 100 mls/hr 10/24/24 11:04 Dextrose 5% 1,000 Ml IVPB PRN PRN Hypoglycemia Protocol Doxycycline Hyclate 100 mg in 100 mls @ 100 mls/hr 10/25/24 13:15 10/28/24 22:56 Vibramycin 100 Mg/Ns 100 Ml IVPB 10/30/24 13:14 Infused Q12HR MP Infusion Metoprolol Tartrate 100 mg 10/28/24 09:00 10/28/24 21:58 Metoprolol Tartrate 50 Mg Tab PO 100 mg Q12HR MP Administration Nifedipine 10 mg 10/28/24 12:00 10/29/24 06:11 Nifedipine 10 Mg Capsule PO 10 mg Q6HR MP Administration Ondansetron HCl 4 mg 10/28/24 00:06 10/28/24 00:20 Ondansetron Inj 4 Mg/2 Ml Vial IV PUSH 4 mg Q6H PRN Administration Nausea And Vomiting Pantoprazole Sodium 40 mg 10/24/24 21:00 10/28/24 21:57 Pantoprazole Sodium Iv 40 Mg Vial IV PUSH 40 mg Q12HR MP Administration Polyethylene Glycol 17 gm 10/27/24 09:00 10/28/24 08:46 Polyethylene Glycol 3350 17 Gm Powd.Pack PO 17 gm QAM MP Administration Senna/Docusate Sodium 1 tab 10/25/24 21:00 10/28/24 21:58 Senna/Docusate Sodium Tablet PO 1 tab HS MP Administration Sodium Bicarbonate 1,300 mg 10/26/24 18:00 10/28/24 17:09 Sodium Bicarbonate Tab 650 Mg Tablet PO 1,300 mg BIDPC MP Administration Sodium Chloride 20 ml 10/24/24 09:29 Central Line Flush IV PUSH PRN PRN after blood draws Sodium Chloride 10 ml 10/24/24 09:29 Central Line Flush IV PUSH PRN PRN with TPN bag changes Sodium Chloride 10 ml 10/24/24 14:00 10/29/24 06:11 Central Line Flush IV PUSH 10 ml Q8HR MP Administration Radiology Results: ITS Impressions Head CT 10/23/24 21:39 Impression: No acute intracranial hemorrhage or suspicious mass effect. Chest/Abdomen/Pelvis CTA 10/23/24 21:44 IMPRESSION: No acute intra-abdominal findings to explain patient's presentation. Mural thickening and edema within the gastric cardia and cecum. Endotracheal tube tip is at the level of the chikis for which withdrawal of approximately 2 cm is suggested for optimal placement. Orogastric tube extends to the second portion of the duodenum, and tenting of the wall is demonstrated. Withdrawal of approximately 9 to 10 cm is recommended for optimal placement and to decrease the risk of perforation. Abdomen X-Ray 10/23/24 23:14 IMPRESSION: Orogastric tube in good position and ready for immediate use. Renal Ultrasound 10/25/24 11:26 IMPRESSION: 1. Bilateral medical renal disease with increased cortical echogenicity and mild cortical thinning at both kidneys. No hydronephrosis. 2. Bilateral renal cysts simple renal cysts as well as a likely benign minimally complex Bosniak 2 complex cystic lesion with a few very thin internal septations in the left kidney. Chest X-Ray 10/28/24 06:23 IMPRESSION: Small left-sided pleural effusion with multifocal infiltrates. Supportive lines and tubes in good position. Labs Labs: Laboratory Results - last 24 hr 10/29/24 05:14 WBC 8.2 RBC 2.96 L Hgb 9.0 L Hct 28.2 L MCV 95.3 MCH 30.4 MCHC 31.9 L RDW 14.1 Plt Count 197 MPV 10.7 H Immature Gran % (Auto) 1.5 H Neut % (Auto) 70.9 Lymph % (Auto) 10.7 L Chambers % (Auto) 13.2 H Eos % (Auto) 3.2 Baso % (Auto) 0.5 Lymph # (Auto) 0.88 L Chambers # (Auto) 1.1 H Eos # (Auto) 0.3 Baso # (Auto) 0.0 Abs Immat Gran (auto) 0.12 H Absolute Neuts (auto) 5.8 Absolute Nucleated RBC 0.000 Nucleated RBC % 0.0 Sodium 145 Potassium 3.8 Chloride 108 H Carbon Dioxide 25 Anion Gap 12 BUN 72 H Creatinine 2.95 H Estim Creat Clear Calc 12 Estimated GFR 18 L Glucose 98 Calcium 9.4 Phosphorus 4.3 Magnesium 2.0 Total Bilirubin 0.5 AST 18 ALT 11 Alkaline Phosphatase 66 Total Protein 7.0 Albumin 3.5
[2024-10-29] MEDS: IPRATROPIUM 0.5 MG/ALBUTEROL SULFATE 2.5 MG AMPUL.NEB 3 ML INHALATION ×3 (08:02→19:27)
[2024-10-29] MEDS: CEFEPIME 1 GM/NS 50 ML 1 GM/50 ML BAG IVPB ×2 (09:09→21:35)
[2024-10-29] MEDS: DOXYCYCLINE 100 MG/NS 100 ML 100 MG/100 ML BAG IVPB ×2 (09:09→21:34)
[2024-10-29] MEDS: SODIUM BICARBONATE TAB 650 MG TABLET 1300 MG PO ×2 (09:10→17:38)
[2024-10-29] MEDS: METOPROLOL TARTRATE 50 MG TAB 100 MG PO ×2 (09:10→21:37)
[2024-10-29] MEDS: amLODIPine BESYLATE 2.5 MG TABLET PO (09:10)
[2024-10-29] MEDS: PANTOPRAZOLE SODIUM IV 40 MG VIAL IV PUSH ×2 (09:11→21:37)
[2024-10-29] MEDS: polyethylene glycoL 3350 17 GM POWD.PACK PO (09:11)
--- NOTE | 2024-10-29 09:11 | P.PNNP_ITS ---
Progress Note: A&P Assessment and Plan (1) SOLOMON (acute kidney injury): Code(s): N17.9 - Acute kidney failure, unspecified Status: Acute Assessment and Plan: * improvement noted * at baseline on admission with worsening noted on 10/25 * suspect multifactorial etiology: * infection/sepsis (aspiration pneumonia) * hypoxia * contrast exposure (CTA C/A/P on 10/23/24) * relative hypotension on admission * diuretic use prior to admission * other(?) * evaluation to date noted: * renal u/s consistent with CKD with no acute issues * urine electrolytes prerenal (by FeUrea) * urine eosinophils negative * proteinuria noted * CPK mildly elevated but not enough to affect kidney function * creatinine appears to have peaked/plateaued at 3.33mg/dl * good urine output noted * diuretics PRN * follow trend of repeat labs and UOP (2) Chronic kidney disease, stage 4 (severe): Code(s): N18.4 - Chronic kidney disease, stage 4 (severe) Status: Chronic Assessment and Plan: * baseline creatinine seems to run ~ 1.8 - 2.6mg/dl in the last few years * likely secondary to hypertension, diabetes, vascular disease, and YAMILKA based on outpatient evaluation * follows with Dr. Juarez in the office for CKD management (3) Acute hypoxemic respiratory failure: Code(s): J96.01 - Acute respiratory failure with hypoxia Status: Acute Assessment and Plan: * resolving * due to aspiuration pneumonia along with fluid * complicated by known history of COPD * on bronchodilators and antibioics * extubated/off the ventilator * wean supplemental oxygen as tolerated (4) Altered mental status: Qualifiers: Altered mental status type: unspecified Qualified Code(s): R41.82 - Altered mental status, unspecified Code(s): R41.82 - Altered mental status, unspecified Status: Acute Assessment and Plan: * appears to be doing much better * follow mentation (5) Sepsis: Code(s): A41.9 - Sepsis, unspecified organism Status: Acute Assessment and Plan: * as noted by presentation - low BP/hypotension, acute respiratory failure, AMS, and lactic acidosis * s/p aggressive IVF resuscitation * lactic acid down trending/normalized * suspect several issues to blame: * diminished oral intake/prerenal factors * infection (aspiration pneumonia) * other (?) * never required vasopressor therapy * on antibiotics * culture data noted (negative to date) (6) Aspiration pneumonia: Code(s): J69.0 - Pneumonitis due to inhalation of food and vomit Status: Acute Assessment and Plan: * slow improvement * on antibiotucs as noted (see #5) (7) HTN (hypertension): Code(s): I10 - Essential (primary) hypertension Status: Acute Assessment and Plan: * reasonable control at this time * slowly resuming home BP medications * follow trend of hemodynamics (8) Diabetes: Code(s): E11.9 - Type 2 diabetes mellitus without complications Status: Chronic Assessment and Plan: * follow accu-cheks * glycemic control per hospitalist Will continue to follow. L Subjective Date/time seen: 10/29/24 09:11 Interval history: Follow-up for acute kidney injury/acute renal failure on chronic kidney disease Chart reviewed since last seen -- has since been extubated and transferred out of ICU to the floor; respiratory status/breathing appears relatively stable; improvement in renal function/creatinine with good urine output noted; stable hemodynamics noted; no apparent distress voiced at the time of my visit; discussed case with family at bedside. Exam 2 Narrative: General: elderly but WD/WN female in NAD Heart: normal S1 and S2; no rub Lungs: coarse breath sounds Abdomen: soft, nontender, nondistended, positive bowel sounds Extremities: no cyanosis or clubbing; trace edema Skin: warm and dry Objective Data Vital Signs Vital Signs: Vital Signs Temp Pulse Resp BP Pulse Ox O2 Del Method O2 Flow Rate 10/29/24 09:10 84 Nasal Cannula 2 10/29/24 08:12 73 20 10/29/24 08:04 72 20 10/29/24 08:04 95 Nasal Cannula 2 10/29/24 08:00 97.7 F 78 18 148/52 H 94 10/29/24 04:00 97.8 F 81 20 150/54 H 94 10/29/24 04:00 80 10/29/24 00:00 73 10/28/24 23:46 97.5 F L 76 20 152/61 H 96 10/28/24 21:58 85 10/28/24 21:47 82 18 10/28/24 21:44 85 95 Nasal Cannula 2 10/28/24 21:38 85 18 10/28/24 20:00 98 Nasal Cannula 2 10/28/24 20:00 83 10/28/24 20:00 97.3 F L 91 20 166/55 H 98 10/28/24 18:00 89 10/28/24 16:00 79 10/28/24 16:00 97.8 F 83 18 158/60 H 96 10/28/24 14:43 80 20 10/28/24 14:33 77 17 10/28/24 14:00 80 Intake/Output Intake/Output: Intake & Output 10/26/24 10/27/24 10/28/24 10/29/24 23:59 23:59 23:59 23:59 Intake Total 1474.6 1314.7 860 520 Output Total 900 2050 2450 750 Balance 574.6 -735.3 -1590 -230 Meds/Results Medications: Active Medications Generic Name Dose Route Start Last Admin Trade Name Freq PRN Reason Stop Dose Admin Acetaminophen 650 mg 10/23/24 22:23 10/28/24 00:20 Acetaminophen 325 Mg Tablet PO 650 mg Q4H PRN Administration Mild Pain (1-3) or Fever Albuterol/Ipratropium 3 ml 10/24/24 14:00 10/29/24 08:02 Ipratropium 0.5 Mg/Albuterol Sulfate 2.5 Mg Ampul.Neb 3 Ml INHALATION 3 ml Q6HRT MP Administration Amlodipine Besylate 2.5 mg 10/29/24 09:00 10/29/24 09:10 Amlodipine Besylate 2.5 Mg Tablet PO 2.5 mg QAM MP Administration Dextrose 12.5 gm 10/24/24 11:04 Dextrose 50% 25 Gm/50 Ml Syringe IV PUSH PRN PRN Hypoglycemia Protocol Enoxaparin Sodium 30 mg 10/24/24 09:00 10/24/24 09:51 Enoxaparin 30 Mg/0.3 Ml Syringe SUB-Q 30 mg DAILY MP Administration Glucagon 1 mg 10/24/24 11:04 Glucagon For Inj 1 Mg Vial IM PRN PRN Hypoglycemia Protocol Glucose 15 gm 10/24/24 11:04 Glucose Oral Gel 15 Gm Of Glucse In 37.5 Gm Tube PO PRN PRN Hypoglycemia Protocol Hydralazine HCl 10 mg 10/27/24 11:43 10/28/24 08:47 Hydralazine Hcl 20 Mg/Ml Vial IV PUSH 10 mg Q4H PRN Administration Blood Pressure - High Cefepime HCl 1 gm in 50 mls @ 100 mls/hr 10/24/24 09:00 10/29/24 09:39 Maxipime 1 Gm/Ns 50 Ml IVPB 10/29/24 23:59 Infused Q12H MP Infusion Metronidazole 500 mg in 100 mls @ 100 mls/hr 10/24/24 11:00 10/29/24 07:03 Flagyl 500 Mg/Iso Soln 100 Ml IVPB Infused Q8HR MP Infusion Dextrose 1,000 mls @ 100 mls/hr 10/24/24 11:04 Dextrose 5% 1,000 Ml IVPB PRN PRN Hypoglycemia Protocol Doxycycline Hyclate 100 mg in 100 mls @ 100 mls/hr 10/25/24 13:15 10/29/24 10:10 Vibramycin 100 Mg/Ns 100 Ml IVPB 10/30/24 13:14 Infused Q12HR MP Infusion Metoprolol Tartrate 100 mg 10/28/24 09:00 10/29/24 09:10 Metoprolol Tartrate 50 Mg Tab PO 100 mg Q12HR MP Administration Nifedipine 10 mg 10/28/24 12:00 10/29/24 06:11 Nifedipine 10 Mg Capsule PO 10 mg Q6HR MP Administration Ondansetron HCl 4 mg 10/28/24 00:06 10/28/24 00:20 Ondansetron Inj 4 Mg/2 Ml Vial IV PUSH 4 mg Q6H PRN Administration Nausea And Vomiting Pantoprazole Sodium 40 mg 10/24/24 21:00 10/29/24 09:11 Pantoprazole Sodium Iv 40 Mg Vial IV PUSH 40 mg Q12HR MP Administration Polyethylene Glycol 17 gm 10/27/24 09:00 10/29/24 09:11 Polyethylene Glycol 3350 17 Gm Powd.Pack PO 17 gm QAM MP Administration Senna/Docusate Sodium 1 tab 10/25/24 21:00 10/28/24 21:58 Senna/Docusate Sodium Tablet PO 1 tab HS MP Administration Sodium Bicarbonate 1,300 mg 10/26/24 18:00 10/29/24 09:10 Sodium Bicarbonate Tab 650 Mg Tablet PO 1,300 mg BIDPC MP Administration Sodium Chloride 20 ml 10/24/24 09:29 Central Line Flush IV PUSH PRN PRN after blood draws Sodium Chloride 10 ml 10/24/24 09:29 Central Line Flush IV PUSH PRN PRN with TPN bag changes Sodium Chloride 10 ml 10/24/24 14:00 10/29/24 06:11 Central Line Flush IV PUSH 10 ml Q8HR MP Administration Radiology Results: ITS Impressions Head CT 10/23/24 21:39 Impression: No acute intracranial hemorrhage or suspicious mass effect. Chest/Abdomen/Pelvis CTA 10/23/24 21:44 IMPRESSION: No acute intra-abdominal findings to explain patient's presentation. Mural thickening and edema within the gastric cardia and cecum. Endotracheal tube tip is at the level of the chikis for which withdrawal of approximately 2 cm is suggested for optimal placement. Orogastric tube extends to the second portion of the duodenum, and tenting of the wall is demonstrated. Withdrawal of approximately 9 to 10 cm is recommended for optimal placement and to decrease the risk of perforation. Abdomen X-Ray 10/23/24 23:14 IMPRESSION: Orogastric tube in good position and ready for immediate use. Renal Ultrasound 10/25/24 11:26 IMPRESSION: 1. Bilateral medical renal disease with increased cortical echogenicity and mild cortical thinning at both kidneys. No hydronephrosis. 2. Bilateral renal cysts simple renal cysts as well as a likely benign minimally complex Bosniak 2 complex cystic lesion with a few very thin internal septations in the left kidney. Chest X-Ray 10/28/24 06:23 IMPRESSION: Small left-sided pleural effusion with multifocal infiltrates. Supportive lines and tubes in good position. Labs Labs: Laboratory Tests 10/29/24 05:14 10/29/24 05:14 Calcium 9.4 Phosphorus 4.3 Magnesium 2.0 Total Bilirubin 0.5 AST 18 ALT 11 Alkaline Phosphatase 66 Total Protein 7.0 Albumin 3.5 Microbiology 10/23/24 20:00 Blood Blood Culture - Final 10/23/24 19:59 Blood Blood Culture - Final
--- NOTE | 2024-10-29 11:28 | PCNFU ---
Nutrition Follow-Up Complete: Suboptimal nutrition as related to mechanical vent as evidenced by NPO. goal: Meet estimated nutritional needs. Patient is progressing towards goal. We will continue current goal. Pt current nutrition is Minced and Moist, Level 5/Renal diet. Nutrition recommendation: Nepro shakes BID Last recorded weight is 73.5 kg, up from 56.4 kg per bed scale. Bowel Motility:+BM reported 10/27 Labs Reviewed:Cr 2.95, GFR 18, BUN 72, Hct 28.2, Hgb 9.0 Meds Noted:Protonix, Miralax, Flagyl Skin: WNL Additional Notes: Patient extubated on 10/28. Diet order advanced to Minced and Moist, Level 5 after speech recommendation on 10/28. Oral Intake has been < 50% of meals. Diet supplements recommended of Nepro shakes BID for additional 420 kcal and 19 gms protein. PO intake encouraged. Agree with diet orders. Will monitor in ICU rounds and reassess weight, labs, skin, diet orders, meds every 3 days.
[2024-10-29] MEDS: SENNA/DOCUSATE SODIUM TABLET 1 TAB PO (21:37)
[2024-10-30] VITALS (22 sets, daily range): BP systolic 150–184; BP diastolic 47–61; PULSE 72–94; RESP 16–26; TEMP 36.6–37.3; O2SAT 95–100
[2024-10-30] MEDS: NIFEdipine 10 MG CAPSULE PO ×4 (00:44→18:03)
[2024-10-30] MEDS: IPRATROPIUM 0.5 MG/ALBUTEROL SULFATE 2.5 MG AMPUL.NEB 3 ML INHALATION ×4 (01:37→20:38)
[2024-10-30] MEDS: CENTRAL LINE FLUSH 10 ML IV PUSH ×3 (06:10→22:18)
[2024-10-30] MEDS: SODIUM BICARBONATE TAB 650 MG TABLET 1300 MG PO ×2 (08:05→18:03)
[2024-10-30] MEDS: polyethylene glycoL 3350 17 GM POWD.PACK PO (08:05)
[2024-10-30] MEDS: METOPROLOL TARTRATE 50 MG TAB 100 MG PO ×2 (08:05→22:17)
[2024-10-30] MEDS: amLODIPine BESYLATE 2.5 MG TABLET PO (08:05)
[2024-10-30 08:06] LABS: Basophils Absolute Auto 0.1 K/mm3 (0.0-0.1); Basophils Percent Auto 0.5 % (0.2-1.2); Eosinophils Absolute Auto 0.4 K/mm3 (0-0.3); Eosinophils Percent Auto 3.4 % (0-4.4); Hemoglobin 9.4 g/dL (12.0-15.0); Immature Granulocyte Absolute 0.21 K/mm3 (0.00-0.031); Immature Granulocyte Percent A 2.1 % (0-0.5); Lymphocytes Absolute Auto 2.45 K/mm3 (0.9-3.2); Lymphocytes Percent Auto 24.1 % (18.3-44.2); Mean Corpuscular HGB Conc 32.4 g/dl (32-36); Mean Corpuscular Hemoglobin 30.6 pg (26-34); Mean Corpuscular Volume 94.5 fl (80-100); Monocytes Absolute Auto 1.2 K/mm3 (0.1-0.6); Monocytes Percent Auto 11.5 % (2.6-8.5); Neutrophils Percent Auto 58.4 % (45.5-73.1); Platelet Count Result 212 k/mm3 (150-375); Red Blood Count 3.07 M/mm3 (4.2-5.4); Red Cell Distribution Width 13.9 % (11.5-14.5); White Blood Count 10.2 K/mm3 (4.5-10.0)
[2024-10-30] MEDS: PANTOPRAZOLE SODIUM IV 40 MG VIAL IV PUSH ×2 (08:06→22:17)
[2024-10-30] MEDS: DOXYCYCLINE 100 MG/NS 100 ML 100 MG/100 ML BAG IVPB (08:06)
[2024-10-30 08:26] LABS: Albumin Level 3.8 g/dL (3.5-5.1); Anion Gap 13 mmol/L (4-12); Blood Urea Nitrogen 76 mg/dL (7-17); Calcium 9.4 mg/dL (8.4-10.2); Carbon Dioxide 24 mmol/L (22-30); Chloride 106 mmol/L (98-107); Estimated CRCL calculation 14 ml/min; Estimated Glomerular Filt Rate 22; Glucose 101 mg/dL (65-110); Phosphorus 3.7 mg/dL (2.5-4.5); Potassium 3.5 mmol/L (3.4-5.0); Sodium 143 mmol/L (137-145)
--- NOTE | 2024-10-30 10:19 | P.PNNP_ITS ---
Progress Note: A&P Assessment and Plan (1) SOLOMON (acute kidney injury): Code(s): N17.9 - Acute kidney failure, unspecified Status: Acute Assessment and Plan: * improvement noted * at baseline on admission with worsening noted on 10/25 * suspect multifactorial etiology: * infection/sepsis (aspiration pneumonia) * hypoxia * contrast exposure (CTA C/A/P on 10/23/24) * relative hypotension on admission * diuretic use prior to admission * other(?) * evaluation to date noted: * renal u/s consistent with CKD with no acute issues * urine electrolytes prerenal (by FeUrea) * urine eosinophils negative * proteinuria noted * CPK mildly elevated but not enough to affect kidney function * creatinine appears to have peaked/plateaued at 3.33mg/dl * good urine output noted * diuretics PRN * follow trend of repeat labs and UOP (2) Chronic kidney disease, stage 4 (severe): Code(s): N18.4 - Chronic kidney disease, stage 4 (severe) Status: Chronic Assessment and Plan: * baseline creatinine seems to run ~ 1.8 - 2.6mg/dl in the last few years * likely secondary to hypertension, diabetes, vascular disease, and YAMILKA based on outpatient evaluation * follows with Dr. Juarez in the office for CKD management (3) Acute hypoxemic respiratory failure: Code(s): J96.01 - Acute respiratory failure with hypoxia Status: Acute Assessment and Plan: * resolving * due to aspiuration pneumonia along with fluid * complicated by known history of COPD * on bronchodilators and antibioics * extubated/off the ventilator * wean supplemental oxygen as tolerated (4) Altered mental status: Qualifiers: Altered mental status type: unspecified Qualified Code(s): R41.82 - Altered mental status, unspecified Code(s): R41.82 - Altered mental status, unspecified Status: Acute Assessment and Plan: * appears to be doing much better * follow mentation (5) Sepsis: Code(s): A41.9 - Sepsis, unspecified organism Status: Acute Assessment and Plan: * as noted by presentation - low BP/hypotension, acute respiratory failure, AMS, and lactic acidosis * s/p aggressive IVF resuscitation * lactic acid down trending/normalized * suspect several issues to blame: * diminished oral intake/prerenal factors * infection (aspiration pneumonia) * other (?) * never required vasopressor therapy * on antibiotics - last dose today * culture data noted (negative to date) (6) Aspiration pneumonia: Code(s): J69.0 - Pneumonitis due to inhalation of food and vomit Status: Acute Assessment and Plan: * slow improvement * on antibiotucs as noted (see #5) (7) HTN (hypertension): Code(s): I10 - Essential (primary) hypertension Status: Acute Assessment and Plan: * reasonable control at this time * slowly resuming home BP medications * follow trend of hemodynamics (8) Diabetes: Code(s): E11.9 - Type 2 diabetes mellitus without complications Status: Chronic Assessment and Plan: * follow accu-cheks * glycemic control per hospitalist Will continue to follow. L Subjective Date/time seen: 10/30/24 10:19 Interval history: Follow-up for acute kidney injury/acute renal failure on chronic kidney disease Renal function/creatinine continues to improve with reasonable urine output; major issues is that of generalized weakness and fatigue; working with therapy as tolerated; no other acute issues/events overnight or earlier this morning per nursing. Exam 2 Narrative: General: elderly but WD/WN female in NAD Heart: normal S1 and S2; no rub Lungs: coarse breath sounds Abdomen: soft, nontender, nondistended, positive bowel sounds Extremities: no cyanosis or clubbing; trace edema Skin: warm and intact Objective Data Vital Signs Vital Signs: Vital Signs Temp Pulse Resp BP Pulse Ox O2 Del Method O2 Flow Rate 10/30/24 08:50 84 18 10/30/24 08:29 88 18 10/30/24 08:29 100 Nasal Cannula 1 10/30/24 08:28 98.1 F 87 20 153/51 H 99 10/30/24 08:06 83 18 100 Nasal Cannula 2 10/30/24 08:05 89 10/30/24 08:03 83 10/30/24 04:00 80 10/30/24 04:00 97.9 F 76 16 150/47 H 99 10/30/24 01:45 78 20 10/30/24 01:37 76 20 10/30/24 00:45 98.7 F 10/30/24 00:00 75 10/29/24 23:29 99.1 F 83 20 155/58 H 90 10/29/24 21:37 88 10/29/24 20:00 86 10/29/24 20:00 97 Nasal Cannula 2 10/29/24 20:00 98.6 F 88 20 149/60 H 97 10/29/24 19:36 87 20 10/29/24 19:27 78 20 10/29/24 19:27 95 Nasal Cannula 2 10/29/24 16:03 75 10/29/24 16:00 97.9 F 77 17 139/89 98 10/29/24 15:09 74 20 10/29/24 14:55 77 20 10/29/24 14:00 Nasal Cannula 2 Intake/Output Intake/Output: Intake & Output 10/27/24 10/28/24 10/29/24 10/30/24 23:59 23:59 23:59 23:59 Intake Total 1314.7 860 1250 320 Output Total 2050 2450 1400 1400 Balance -735.3 -1590 -150 -1080 Meds/Results Medications: Active Medications Generic Name Dose Route Start Last Admin Trade Name Praveenq PRN Reason Stop Dose Admin Acetaminophen 650 mg 10/23/24 22:23 10/28/24 00:20 Acetaminophen 325 Mg Tablet PO 650 mg Q4H PRN Administration Mild Pain (1-3) or Fever Albuterol/Ipratropium 3 ml 10/24/24 14:00 10/30/24 08:25 Ipratropium 0.5 Mg/Albuterol Sulfate 2.5 Mg Ampul.Neb 3 Ml INHALATION 3 ml Q6HRT MP Administration Amlodipine Besylate 2.5 mg 10/29/24 09:00 10/30/24 08:05 Amlodipine Besylate 2.5 Mg Tablet PO 2.5 mg QAM MP Administration Dextrose 12.5 gm 10/24/24 11:04 Dextrose 50% 25 Gm/50 Ml Syringe IV PUSH PRN PRN Hypoglycemia Protocol Enoxaparin Sodium 30 mg 10/24/24 09:00 10/24/24 09:51 Enoxaparin 30 Mg/0.3 Ml Syringe SUB-Q 30 mg DAILY MP Administration Glucagon 1 mg 10/24/24 11:04 Glucagon For Inj 1 Mg Vial IM PRN PRN Hypoglycemia Protocol Glucose 15 gm 10/24/24 11:04 Glucose Oral Gel 15 Gm Of Glucse In 37.5 Gm Tube PO PRN PRN Hypoglycemia Protocol Hydralazine HCl 10 mg 10/27/24 11:43 10/28/24 08:47 Hydralazine Hcl 20 Mg/Ml Vial IV PUSH 10 mg Q4H PRN Administration Blood Pressure - High Dextrose 1,000 mls @ 100 mls/hr 10/24/24 11:04 Dextrose 5% 1,000 Ml IVPB PRN PRN Hypoglycemia Protocol Doxycycline Hyclate 100 mg in 100 mls @ 100 mls/hr 10/25/24 13:15 10/30/24 08:06 Vibramycin 100 Mg/Ns 100 Ml IVPB 10/30/24 13:14 100 mls/hr Q12HR MP Administration Metoprolol Tartrate 100 mg 10/28/24 09:00 10/30/24 08:05 Metoprolol Tartrate 50 Mg Tab PO 100 mg Q12HR MP Administration Nifedipine 10 mg 10/28/24 12:00 10/30/24 12:33 Nifedipine 10 Mg Capsule PO 10 mg Q6HR MP Administration Ondansetron HCl 4 mg 10/28/24 00:06 10/28/24 00:20 Ondansetron Inj 4 Mg/2 Ml Vial IV PUSH 4 mg Q6H PRN Administration Nausea And Vomiting Pantoprazole Sodium 40 mg 10/24/24 21:00 10/30/24 08:06 Pantoprazole Sodium Iv 40 Mg Vial IV PUSH 40 mg Q12HR MP Administration Polyethylene Glycol 17 gm 10/27/24 09:00 10/30/24 08:05 Polyethylene Glycol 3350 17 Gm Powd.Pack PO 17 gm QAM MP Administration Senna/Docusate Sodium 1 tab 10/25/24 21:00 10/29/24 21:37 Senna/Docusate Sodium Tablet PO 1 tab HS MP Administration Sodium Bicarbonate 1,300 mg 10/26/24 18:00 10/30/24 08:05 Sodium Bicarbonate Tab 650 Mg Tablet PO 1,300 mg BIDPC MP Administration Sodium Chloride 20 ml 10/24/24 09:29 Central Line Flush IV PUSH PRN PRN after blood draws Sodium Chloride 10 ml 10/24/24 09:29 Central Line Flush IV PUSH PRN PRN with TPN bag changes Sodium Chloride 10 ml 10/24/24 14:00 10/30/24 06:10 Central Line Flush IV PUSH 10 ml Q8HR MP Administration Radiology Results: ITS Impressions Head CT 10/23/24 21:39 Impression: No acute intracranial hemorrhage or suspicious mass effect. Chest/Abdomen/Pelvis CTA 10/23/24 21:44 IMPRESSION: No acute intra-abdominal findings to explain patient's presentation. Mural thickening and edema within the gastric cardia and cecum. Endotracheal tube tip is at the level of the chikis for which withdrawal of approximately 2 cm is suggested for optimal placement. Orogastric tube extends to the second portion of the duodenum, and tenting of the wall is demonstrated. Withdrawal of approximately 9 to 10 cm is recommended for optimal placement and to decrease the risk of perforation. Abdomen X-Ray 10/23/24 23:14 IMPRESSION: Orogastric tube in good position and ready for immediate use. Renal Ultrasound 10/25/24 11:26 IMPRESSION: 1. Bilateral medical renal disease with increased cortical echogenicity and mild cortical thinning at both kidneys. No hydronephrosis. 2. Bilateral renal cysts simple renal cysts as well as a likely benign minimally complex Bosniak 2 complex cystic lesion with a few very thin internal septations in the left kidney. Chest X-Ray 10/28/24 06:23 IMPRESSION: Small left-sided pleural effusion with multifocal infiltrates. Supportive lines and tubes in good position. Labs Labs: Laboratory Tests 10/30/24 07:59 10/30/24 07:59 Calcium 9.4 Phosphorus 3.7 Albumin 3.8
--- NOTE | 2024-10-30 10:45 | PM.IMPN ---
Progress Note: A&P Assessment and Plan (1) Diabetes: Code(s): E11.9 - Type 2 diabetes mellitus without complications Status: Chronic (2) Secondary hyperparathyroidism, not elsewhere classified: Code(s): E21.1 - Secondary hyperparathyroidism, not elsewhere classified Status: Acute Plan Altered mental status: Qualifiers: Altered mental status type: unspecified Qualified Code(s): R41.82 - Altered mental status, unspecified Code(s): R41.82 - Altered mental status, unspecified Status: Acute Assessment and Plan: Patient was found unresponsive at home by her son, Upon EMS arrival she did have a pulse but was difficult to intubate so laryngeal airway was placed, patient brought to ED which she was intubated. Drug screen positive for benzodiazepines and cannabis , suspecting toxic encephalopathy Patient received fluid resuscitation Chronic patient is weak 10/23/2024: -CT brain with no acute intracranial hemorrhage or suspicious mass effect, patient was suspect TIA vs stroke, MRI was not done due to intubation. 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 No acute intracranial process. Acute Respiratory failure requiring intubation: Code(s): J96.90 - Respiratory failure, unspecified, unspecified whether with hypoxia or hypercapnia Status: Acute Assessment and Plan: Patient was unresponsive at home, had emesis. Failed intubation on side by EMS, laryngeal airway was inserted -10/23: Intubated upon arrival to the ER for airway protection and possible aspiration chest x-ray this morning showed: Worsening central congestive change and patchy bilateral airspace disease. Correlate for worsening pulmonary edema versus pneumonia. given history of asthma and COPD, continue bronchodilators Likely resulting from pneumonia, COPD exacerbation, substance abuse Patient was acid repeated October 27 Tolerated extubation now on 1 L O2 Sepsis: Code(s): A41.9 - Sepsis, unspecified organism Status: Acute Assessment and Plan: Elevated lactic acidosis, hypotension,, respiratory failure, altered mental status -lactic acid trending down adequate IV fluid -according the son patient has not been taking adequate oral intake, liquids as well as solids for the last 2-3 weeks -could be hypovolemia secondary to decreased oral intake Received intravascular volume expansion with albumin continue cefepime and vancomycin (10/23) -continue doxycycline (10/25) -10/23: Preliminary blood cultures are negative 10/24/2024: Echocardiogram Summary 1. Complete two-dimensional, color flow and Doppler transthoracic echocardiogram is performed. 2. There is normal biventricular size and systolic function. 3. There is no significant valvular disease. 4. The atrial septum appears aneurysmal however there is no [id number] shunt by agitated saline study. Patient finished treatment of cefepime and Flagyl, continue doxycycline 100 mg b.i.d. acute are IV till Oct 30 per ID pharmacist Aspiration pneumonia: Code(s): J69.0 - Pneumonitis due to inhalation of food and vomit Status: Acute Assessment and Plan: Pt had emesis at home, possible aspiration pneumonitis/pneumonia 10/25: CXR: Worsening central congestive change and patchy bilateral airspace disease. Correlate for worsening pulmonary edema versus pneumonia -continue antibiotics as above Positive urine drug screen: Code(s): R82.5 - Elevated urine levels of drugs, medicaments and biological substances Status: Acute Assessment and Plan: Urine drug screen was positive for cannabinoids and benzodiazepine Hypoglycemia: Code(s): E16.2 - Hypoglycemia, unspecified Status: Acute Assessment and Plan: Patient has a history of type 2 diabetes, was hypoglycemic when EMS arrived, received dextrose -blood sugars have been stable -continue Accu-Cheks and sliding scale insulin SOLOMON on CKD Chronic kidney disease, stage 4 (severe): Code(s): N18.4 - Chronic kidney disease, stage 4 (severe) Status: Chronic Assessment and Plan: Acute on chronic kidney disease stage IV, creatinine was at baseline on admission, -patient has been adequately fluid-resuscitated, added albumin for further intravascular volume repletion -10/25: Elevated creatinine, patient also received contrast on admission, could be related to contrast induced nephropathy, sepsis -10/25: Renal ultrasound showed bilateral medical renal disease, bilateral renal cysts, no hydronephrosis or stones. -urine lytes was not prerenal, negative urine eosinophils, CK levels 289 -appreciate Nephrology evaluation and recommendations -continue monitor urine output, renal function and electrolytes -creatinine continues to rise but probably will plateau, patient continues to have urine output, Consult meter inspector for evaluation treatment HTN (hypertension): Code(s): I10 - Essential (primary) hypertension Status: Acute Assessment and Plan: History of essential hypertension, metoprolol at half the dose that she takes at home -p.r.n. hydralazine Diabetes: Code(s): E11.9 - Type 2 diabetes mellitus without complications Status: Chronic Assessment and Plan: Accu-Cheks and sliding scale insulin Plan DVT prophylaxis: SCDs, hold chemoprophylaxis due to coffee-ground drainage in the OG tube, anemia Stress ulcer prophylaxis: Protonix IV q.12 hours Nutrition: All in tube feeds for possible extubation will add p.r.n. MiraLax and senna S Consult PT OT cervical for evaluation and assisting placement. Patient has physical decondition due to comorbidities is aggravated bed recent acute illness. Patient may benefit from rehab in the [place] [facility] Subjective Date/time seen: 10/30/24 10:45 Interval history: Patient ambulated with assistance of physical therapist. Patient still has general weakness, head shortness with exertion denies headache new focal weakness, patient also has cough with scant phlegm, denies abdomen pain nausea vomiting diarrhea. Creatinine is trending down to 2.55 today, patient is on 2 L oxygen, still has general weakness Brain MRI does not show acute stroke Exam Narrative: GENERAL: Ill-appearing in no acute distress. Well-nourished. - EYES: EOMI. Anicteric. - HENT: Moist mucous membranes. - LUNGS: Coarse breath sound bilaterally, no wheezing, rhonchi, or rales. - CARDIOVASCULAR: Regular rate and rhythm. No murmur. No JVD. - ABDOMEN: Soft, non-tender and non-distended. No palpable masses. - EXTREMITIES: No edema. Peripheral pulses 2+. Non-tender. - NEUROLOGIC: No focal neurological deficits. CN II-XII grossly intact. General weakness - PSYCHIATRIC: Awake, Alert and oriented x 3. Appropriate mood and affect. - SKIN: No rashes or lesions. Warm. - LYMPH: No cervical lymphadenopathy. Objective Data Vital Signs Vital Signs: Vital Signs - 24 hr 10/29/24 12:00 10/29/24 12:01 10/29/24 14:00 Temperature 97.9 F Pulse Rate 70 68 Respiratory Rate 18 Blood Pressure 155/52 H Pulse Oximetry 98 Oxygen Delivery Nasal Cannula Oxygen Flow Rate 2 Fraction of Inspired Oxygen 10/29/24 14:55 10/29/24 15:09 10/29/24 16:00 Temperature 97.9 F Pulse Rate 77 74 77 Respiratory Rate 20 20 17 Blood Pressure 139/89 Pulse Oximetry 98 Oxygen Delivery Oxygen Flow Rate Fraction of Inspired Oxygen 10/29/24 16:03 10/29/24 19:27 10/29/24 19:27 Temperature Pulse Rate 75 78 Respiratory Rate 20 Blood Pressure Pulse Oximetry 95 Oxygen Delivery Nasal Cannula Oxygen Flow Rate 2 Fraction of Inspired Oxygen 28 10/29/24 19:36 10/29/24 20:00 10/29/24 20:00 Temperature 98.6 F Pulse Rate 87 88 Respiratory Rate 20 20 Blood Pressure 149/60 H Pulse Oximetry 97 97 Oxygen Delivery Nasal Cannula Oxygen Flow Rate 2 Fraction of Inspired Oxygen 10/29/24 20:00 10/29/24 21:37 10/29/24 23:29 Temperature 99.1 F Pulse Rate 86 88 83 Respiratory Rate 20 Blood Pressure 155/58 H Pulse Oximetry 90 Oxygen Delivery Oxygen Flow Rate Fraction of Inspired Oxygen 10/30/24 00:00 10/30/24 00:45 10/30/24 01:37 Temperature 98.7 F Pulse Rate 75 76 Respiratory Rate 20 Blood Pressure Pulse Oximetry Oxygen Delivery Oxygen Flow Rate Fraction of Inspired Oxygen 10/30/24 01:45 10/30/24 04:00 10/30/24 04:00 Temperature 97.9 F Pulse Rate 78 76 80 Respiratory Rate 20 16 Blood Pressure 150/47 H Pulse Oximetry 99 Oxygen Delivery Oxygen Flow Rate Fraction of Inspired Oxygen 10/30/24 08:05 10/30/24 08:28 10/30/24 08:29 Temperature 98.1 F Pulse Rate 89 87 Respiratory Rate 20 Blood Pressure 153/51 H Pulse Oximetry 99 100 Oxygen Delivery Nasal Cannula Oxygen Flow Rate 1 Fraction of Inspired Oxygen 10/30/24 08:29 10/30/24 08:50 Temperature Pulse Rate 88 84 Respiratory Rate 18 18 Blood Pressure Pulse Oximetry Oxygen Delivery Oxygen Flow Rate Fraction of Inspired Oxygen Intake/Output Intake/Output: Intake & Output 10/27/24 10/28/24 10/29/24 10/30/24 23:59 23:59 23:59 23:59 Intake Total 1314.7 860 1250 320 Output Total 2050 2450 1400 650 Balance -735.3 -1590 -150 -330 Meds/Results Medications: Active Medications Generic Name Dose Route Start Last Admin Trade Name Freq PRN Reason Stop Dose Admin Acetaminophen 650 mg 10/23/24 22:23 10/28/24 00:20 Acetaminophen 325 Mg Tablet PO 650 mg Q4H PRN Administration Mild Pain (1-3) or Fever Albuterol/Ipratropium 3 ml 10/24/24 14:00 10/30/24 08:25 Ipratropium 0.5 Mg/Albuterol Sulfate 2.5 Mg Ampul.Neb 3 Ml INHALATION 3 ml Q6HRT MP Administration Amlodipine Besylate 2.5 mg 10/29/24 09:00 10/30/24 08:05 Amlodipine Besylate 2.5 Mg Tablet PO 2.5 mg QAM MP Administration Dextrose 12.5 gm 10/24/24 11:04 Dextrose 50% 25 Gm/50 Ml Syringe IV PUSH PRN PRN Hypoglycemia Protocol Enoxaparin Sodium 30 mg 10/24/24 09:00 10/24/24 09:51 Enoxaparin 30 Mg/0.3 Ml Syringe SUB-Q 30 mg DAILY MP Administration Glucagon 1 mg 10/24/24 11:04 Glucagon For Inj 1 Mg Vial IM PRN PRN Hypoglycemia Protocol Glucose 15 gm 10/24/24 11:04 Glucose Oral Gel 15 Gm Of Glucse In 37.5 Gm Tube PO PRN PRN Hypoglycemia Protocol Hydralazine HCl 10 mg 10/27/24 11:43 10/28/24 08:47 Hydralazine Hcl 20 Mg/Ml Vial IV PUSH 10 mg Q4H PRN Administration Blood Pressure - High Dextrose 1,000 mls @ 100 mls/hr 10/24/24 11:04 Dextrose 5% 1,000 Ml IVPB PRN PRN Hypoglycemia Protocol Doxycycline Hyclate 100 mg in 100 mls @ 100 mls/hr 10/25/24 13:15 10/30/24 08:06 Vibramycin 100 Mg/Ns 100 Ml IVPB 10/30/24 13:14 100 mls/hr Q12HR MP Administration Metoprolol Tartrate 100 mg 10/28/24 09:00 10/30/24 08:05 Metoprolol Tartrate 50 Mg Tab PO 100 mg Q12HR MP Administration Nifedipine 10 mg 10/28/24 12:00 10/30/24 06:10 Nifedipine 10 Mg Capsule PO 10 mg Q6HR MP Administration Ondansetron HCl 4 mg 10/28/24 00:06 10/28/24 00:20 Ondansetron Inj 4 Mg/2 Ml Vial IV PUSH 4 mg Q6H PRN Administration Nausea And Vomiting Pantoprazole Sodium 40 mg 10/24/24 21:00 10/30/24 08:06 Pantoprazole Sodium Iv 40 Mg Vial IV PUSH 40 mg Q12HR MP Administration Polyethylene Glycol 17 gm 10/27/24 09:00 10/30/24 08:05 Polyethylene Glycol 3350 17 Gm Powd.Pack PO 17 gm QAM MP Administration Senna/Docusate Sodium 1 tab 10/25/24 21:00 10/29/24 21:37 Senna/Docusate Sodium Tablet PO 1 tab HS MP Administration Sodium Bicarbonate 1,300 mg 10/26/24 18:00 10/30/24 08:05 Sodium Bicarbonate Tab 650 Mg Tablet PO 1,300 mg BIDPC MP Administration Sodium Chloride 20 ml 10/24/24 09:29 Central Line Flush IV PUSH PRN PRN after blood draws Sodium Chloride 10 ml 10/24/24 09:29 Central Line Flush IV PUSH PRN PRN with TPN bag changes Sodium Chloride 10 ml 10/24/24 14:00 10/30/24 06:10 Central Line Flush IV PUSH 10 ml Q8HR MP Administration Radiology Results: ITS Impressions Head CT 10/23/24 21:39 Impression: No acute intracranial hemorrhage or suspicious mass effect. Chest/Abdomen/Pelvis CTA 10/23/24 21:44 IMPRESSION: No acute intra-abdominal findings to explain patient's presentation. Mural thickening and edema within the gastric cardia and cecum. Endotracheal tube tip is at the level of the chikis for which withdrawal of approximately 2 cm is suggested for optimal placement. Orogastric tube extends to the second portion of the duodenum, and tenting of the wall is demonstrated. Withdrawal of approximately 9 to 10 cm is recommended for optimal placement and to decrease the risk of perforation. Abdomen X-Ray 10/23/24 23:14 IMPRESSION: Orogastric tube in good position and ready for immediate use. Renal Ultrasound 10/25/24 11:26 IMPRESSION: 1. Bilateral medical renal disease with increased cortical echogenicity and mild cortical thinning at both kidneys. No hydronephrosis. 2. Bilateral renal cysts simple renal cysts as well as a likely benign minimally complex Bosniak 2 complex cystic lesion with a few very thin internal septations in the left kidney. Chest X-Ray 10/28/24 06:23 IMPRESSION: Small left-sided pleural effusion with multifocal infiltrates. Supportive lines and tubes in good position. Brain MRI 10/30/24 10:33 IMPRESSION: 1. 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 No acute intracranial process. 2. Moderate scattered periventricular predominant scattered white matter T2 hyperintensity consistent with chronic small vessel ischemic disease. Labs Labs: Laboratory Results - last 24 hr 10/30/24 07:59 WBC 10.2 H RBC 3.07 L Hgb 9.4 L Hct 29.0 L MCV 94.5 MCH 30.6 MCHC 32.4 RDW 13.9 Plt Count 212 MPV 11.0 H Immature Gran % (Auto) 2.1 H Neut % (Auto) 58.4 Lymph % (Auto) 24.1 [place] % (Auto) 11.5 H Eos % (Auto) 3.4 Baso % (Auto) 0.5 Lymph # (Auto) 2.45 [place] # (Auto) 1.2 H Eos # (Auto) 0.4 H Baso # (Auto) 0.1 Abs Immat Gran (auto) 0.21 H Absolute Neuts (auto) 6.0 Absolute Nucleated RBC 0.000 Nucleated RBC % 0.0 Sodium 143 Potassium 3.5 Chloride 106 Carbon Dioxide 24 Anion Gap 13 H BUN 76 H Creatinine 2.55 H Estim Creat Clear Calc 14 Estimated GFR 22 L Glucose 101 Calcium 9.4 Phosphorus 3.7 Albumin 3.8
[2024-10-30] MEDS: hydrALAZINE HCL 20 MG/ML VIAL 10 MG IV PUSH (20:39)
[2024-10-31] VITALS (20 sets, daily range): BP systolic 134–179; BP diastolic 49–76; PULSE 74–91; RESP 16–22; TEMP 36.6–37.1; O2SAT 96–100
[2024-10-31] MEDS: NIFEdipine 10 MG CAPSULE PO ×5 (00:01→23:30)
[2024-10-31] MEDS: IPRATROPIUM 0.5 MG/ALBUTEROL SULFATE 2.5 MG AMPUL.NEB 3 ML INHALATION ×4 (02:00→20:59)
[2024-10-31 04:23] LABS: Albumin Level 3.3 g/dL (3.5-5.1); Anion Gap 11 mmol/L (4-12); Blood Urea Nitrogen 73 mg/dL (7-17); Calcium 9.2 mg/dL (8.4-10.2); Carbon Dioxide 25 mmol/L (22-30); Chloride 104 mmol/L (98-107); Estimated CRCL calculation 16 ml/min; Estimated Glomerular Filt Rate 26; Glucose 101 mg/dL (65-110); Phosphorus 3.4 mg/dL (2.5-4.5); Potassium 3.6 mmol/L (3.4-5.0); Sodium 140 mmol/L (137-145)
[2024-10-31 06:26] LABS: Basophils Absolute Auto 0.1 K/mm3 (0.0-0.1); Basophils Percent Auto 0.6 % (0.2-1.2); Eosinophils Absolute Auto 0.3 K/mm3 (0-0.3); Eosinophils Percent Auto 2.5 % (0-4.4); Hematocrit 30.3 % (37.0-47.0); Hemoglobin 9.5 g/dL (12.0-15.0); Immature Granulocyte Absolute 0.21 K/mm3 (0.00-0.031); Immature Granulocyte Percent A 2.1 % (0-0.5); Lymphocytes Absolute Auto 1.81 K/mm3 (0.9-3.2); Lymphocytes Percent Auto 18.2 % (18.3-44.2); Mean Corpuscular HGB Conc 31.4 g/dl (32-36); Mean Corpuscular Hemoglobin 30.1 pg (26-34); Mean Corpuscular Volume 95.9 fl (80-100); Mean Platelet Volume 11.3 fl (7.4-10.4); Monocytes Absolute Auto 0.9 K/mm3 (0.1-0.6); Monocytes Percent Auto 9.4 % (2.6-8.5); Neutrophils Absolute Auto 6.7 K/mm3 (1.3-6.7); Neutrophils Percent Auto 67.2 % (45.5-73.1); Platelet Count Result 206 k/mm3 (150-375); Red Blood Count 3.16 M/mm3 (4.2-5.4); Red Cell Distribution Width 13.6 % (11.5-14.5); White Blood Count 9.9 K/mm3 (4.5-10.0)
[2024-10-31] MEDS: hydrALAZINE HCL 20 MG/ML VIAL 10 MG IV PUSH (06:29)
[2024-10-31] MEDS: ALTEPLASE 2 MG VIAL (CATHFLO) IV PUSH ×2 (06:40)
[2024-10-31] MEDS: CENTRAL LINE FLUSH 10 ML IV PUSH ×3 (06:40→20:26)
--- NOTE | 2024-10-31 07:53 | PM.IMPN ---
Progress Note: A&P Assessment and Plan (1) Diabetes: Code(s): E11.9 - Type 2 diabetes mellitus without complications Status: Chronic (2) Secondary hyperparathyroidism, not elsewhere classified: Code(s): E21.1 - Secondary hyperparathyroidism, not elsewhere classified Status: Acute Plan Altered mental status: Qualifiers: Altered mental status type: unspecified Qualified Code(s): R41.82 - Altered mental status, unspecified Code(s): R41.82 - Altered mental status, unspecified Status: Acute Assessment and Plan: Patient was found unresponsive at home by her son, Upon EMS arrival she did have a pulse but was difficult to intubate so laryngeal airway was placed, patient brought to ED which she was intubated. Drug screen positive for benzodiazepines and cannabis , suspecting toxic encephalopathy Patient received fluid resuscitation Chronic patient is weak 10/23/2024: -CT brain with no acute intracranial hemorrhage or suspicious mass effect, patient was suspect TIA vs stroke, MRI was not done due to intubation. 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 No acute intracranial process. Acute Respiratory failure requiring intubation: Code(s): J96.90 - Respiratory failure, unspecified, unspecified whether with hypoxia or hypercapnia Status: Acute Assessment and Plan: Patient was unresponsive at home, had emesis. Failed intubation on side by EMS, laryngeal airway was inserted -10/23: Intubated upon arrival to the ER for airway protection and possible aspiration chest x-ray this morning showed: Worsening central congestive change and patchy bilateral airspace disease. Correlate for worsening pulmonary edema versus pneumonia. given history of asthma and COPD, continue bronchodilators Likely resulting from pneumonia, COPD exacerbation, substance abuse Patient was acid repeated October 27 Tolerated extubation now on 1 L O2 Sepsis: Code(s): A41.9 - Sepsis, unspecified organism Status: Acute Assessment and Plan: Elevated lactic acidosis, hypotension,, respiratory failure, altered mental status -lactic acid trending down adequate IV fluid -according the son patient has not been taking adequate oral intake, liquids as well as solids for the last 2-3 weeks -could be hypovolemia secondary to decreased oral intake Received intravascular volume expansion with albumin continue cefepime and vancomycin (10/23) -continue doxycycline (10/25) -10/23: Preliminary blood cultures are negative 10/24/2024: Echocardiogram Summary 1. Complete two-dimensional, color flow and Doppler transthoracic echocardiogram is performed. 2. There is normal biventricular size and systolic function. 3. There is no significant valvular disease. 4. The atrial septum appears aneurysmal however there is no [id number] shunt by agitated saline study. Patient finished treatment of cefepime and Flagyl, continued doxycycline 100 mg b.i.d IV till Oct 30 per ID pharmacist Aspiration pneumonia: Code(s): J69.0 - Pneumonitis due to inhalation of food and vomit Status: Acute Assessment and Plan: Pt had emesis at home, possible aspiration pneumonitis/pneumonia 10/25: CXR: Worsening central congestive change and patchy bilateral airspace disease. Correlate for worsening pulmonary edema versus pneumonia antibiotics as above. Finished antibiotics treatment Positive urine drug screen: Code(s): R82.5 - Elevated urine levels of drugs, medicaments and biological substances Status: Acute Assessment and Plan: Urine drug screen was positive for cannabinoids and benzodiazepine Hypoglycemia: Code(s): E16.2 - Hypoglycemia, unspecified Status: Acute Assessment and Plan: Patient has a history of type 2 diabetes, was hypoglycemic when EMS arrived, received dextrose -blood sugars have been stable -continue Accu-Cheks and sliding scale insulin SOLOMON on CKD Chronic kidney disease, stage 4 (severe): Code(s): N18.4 - Chronic kidney disease, stage 4 (severe) Status: Chronic Assessment and Plan: Acute on chronic kidney disease stage IV, creatinine was at baseline on admission, -patient has been adequately fluid-resuscitated, added albumin for further intravascular volume repletion -10/25: Elevated creatinine, patient also received contrast on admission, could be related to contrast induced nephropathy, sepsis -10/25: Renal ultrasound showed bilateral medical renal disease, bilateral renal cysts, no hydronephrosis or stones. -urine lytes was not prerenal, negative urine eosinophils, CK levels 289 appreciate Nephrology evaluation and recommendations Kidney function continued to improve Consult diesel maintenance technician for evaluation treatment HTN (hypertension): Code(s): I10 - Essential (primary) hypertension Status: Acute Assessment and Plan: History of essential hypertension, metoprolol at half the dose that she takes at home -p.r.n. hydralazine Diabetes: Code(s): E11.9 - Type 2 diabetes mellitus without complications Status: Chronic Assessment and Plan: Accu-Cheks and sliding scale insulin Plan DVT prophylaxis: SCDs, hold chemoprophylaxis due to coffee-ground drainage in the OG tube, anemia Stress ulcer prophylaxis: Protonix IV q.12 hours Nutrition: All in tube feeds for possible extubation will add p.r.n. MiraLax and senna S Consult PT OT cervical for evaluation and assisting placement. Patient has physical decondition due to comorbidities is aggravated bed recent acute illness. Patient may benefit from rehab in the half-way Subjective Date/time seen: 10/31/24 07:53 Interval history: I saw examined patient present of pt's son. Patient was ambulated with assistance of physical therapist, and patient has short of breath after walking, but denies chest pain headache, lightheadedness, abdomen pain nausea vomiting Creatinine is trending down to 2.55 today, patient is on 2 L oxygen, still has general weakness Exam Narrative: GENERAL: Ill-appearing in no acute distress. Well-nourished. - EYES: EOMI. Anicteric. - HENT: Moist mucous membranes. - LUNGS: Coarse breath sound bilaterally, no wheezing, rhonchi, or rales. - CARDIOVASCULAR: Regular rate and rhythm. No murmur. No JVD. - ABDOMEN: Soft, non-tender and non-distended. No palpable masses. - EXTREMITIES: No edema. Peripheral pulses 2+. Non-tender. - NEUROLOGIC: No focal neurological deficits. CN II-XII grossly intact. General weakness - PSYCHIATRIC: Awake, Alert and oriented x 3. Appropriate mood and affect. - SKIN: No rashes or lesions. Warm. - LYMPH: No cervical lymphadenopathy. Objective Data Vital Signs Vital Signs: Vital Signs - 24 hr 10/30/24 08:03 10/30/24 08:05 10/30/24 08:06 Temperature Pulse Rate 83 89 83 Respiratory Rate 18 Blood Pressure Pulse Oximetry 100 Oxygen Delivery Nasal Cannula Oxygen Flow Rate 2 10/30/24 08:28 10/30/24 08:29 10/30/24 08:29 Temperature 98.1 F Pulse Rate 87 88 Respiratory Rate 20 18 Blood Pressure 153/51 H Pulse Oximetry 99 100 Oxygen Delivery Nasal Cannula Oxygen Flow Rate 1 10/30/24 08:50 10/30/24 12:01 10/30/24 14:31 Temperature 98 F Pulse Rate 84 77 74 Respiratory Rate 18 26 H Blood Pressure 158/59 H Pulse Oximetry 97 Oxygen Delivery Oxygen Flow Rate 10/30/24 14:52 10/30/24 15:03 10/30/24 16:03 Temperature Pulse Rate 72 80 84 Respiratory Rate 20 20 Blood Pressure Pulse Oximetry Oxygen Delivery Oxygen Flow Rate 10/30/24 20:00 10/30/24 20:00 10/30/24 20:30 Temperature 99.1 F Pulse Rate 91 86 Respiratory Rate 18 Blood Pressure 184/61 H Pulse Oximetry 100 98 Oxygen Delivery Nasal Cannula Oxygen Flow Rate 1 10/30/24 20:38 10/30/24 20:38 10/30/24 20:45 Temperature Pulse Rate 88 94 Respiratory Rate 22 H 22 H Blood Pressure Pulse Oximetry 98 Oxygen Delivery Nasal Cannula Oxygen Flow Rate 1 10/30/24 22:17 10/30/24 23:41 10/31/24 00:00 Temperature 98.4 F Pulse Rate 94 78 77 Respiratory Rate 16 Blood Pressure 160/53 H Pulse Oximetry 95 Oxygen Delivery Oxygen Flow Rate 10/31/24 00:45 10/31/24 02:00 10/31/24 02:05 Temperature Pulse Rate 86 83 Respiratory Rate 22 H 22 H Blood Pressure Pulse Oximetry 98 Oxygen Delivery Nasal Cannula Oxygen Flow Rate 2 10/31/24 04:00 10/31/24 04:00 10/31/24 07:22 Temperature 98.8 F Pulse Rate 84 83 Respiratory Rate 16 Blood Pressure 179/64 H Pulse Oximetry 100 97 Oxygen Delivery Nasal Cannula Oxygen Flow Rate 2 10/31/24 07:22 10/31/24 07:32 Temperature Pulse Rate 83 85 Respiratory Rate 20 20 Blood Pressure Pulse Oximetry Oxygen Delivery Oxygen Flow Rate Intake/Output Intake/Output: Intake & Output 10/28/24 10/29/24 10/30/24 10/31/24 23:59 23:59 23:59 23:59 Intake Total 860 1250 1000 Output Total 2450 1400 2300 3 Balance -1590 -150 -1300 -3 Meds/Results Medications: Active Medications Generic Name Dose Route Start Last Admin Trade Name Freq PRN Reason Stop Dose Admin Acetaminophen 650 mg 10/23/24 22:23 10/28/24 00:20 Acetaminophen 325 Mg Tablet PO 650 mg Q4H PRN Administration Mild Pain (1-3) or Fever Albuterol/Ipratropium 3 ml 10/24/24 14:00 10/31/24 07:22 Ipratropium 0.5 Mg/Albuterol Sulfate 2.5 Mg Ampul.Neb 3 Ml INHALATION 3 ml Q6HRT MP Administration Amlodipine Besylate 2.5 mg 10/29/24 09:00 10/30/24 08:05 Amlodipine Besylate 2.5 Mg Tablet PO 2.5 mg QAM MP Administration Dextrose 12.5 gm 10/24/24 11:04 Dextrose 50% 25 Gm/50 Ml Syringe IV PUSH PRN PRN Hypoglycemia Protocol Enoxaparin Sodium 30 mg 10/24/24 09:00 10/24/24 09:51 Enoxaparin 30 Mg/0.3 Ml Syringe SUB-Q 30 mg DAILY MP Administration Glucagon 1 mg 10/24/24 11:04 Glucagon For Inj 1 Mg Vial IM PRN PRN Hypoglycemia Protocol Glucose 15 gm 10/24/24 11:04 Glucose Oral Gel 15 Gm Of Glucse In 37.5 Gm Tube PO PRN PRN Hypoglycemia Protocol Hydralazine HCl 10 mg 10/27/24 11:43 10/31/24 06:29 Hydralazine Hcl 20 Mg/Ml Vial IV PUSH 10 mg Q4H PRN Administration Blood Pressure - High Dextrose 1,000 mls @ 100 mls/hr 10/24/24 11:04 Dextrose 5% 1,000 Ml IVPB PRN PRN Hypoglycemia Protocol Metoprolol Tartrate 100 mg 10/28/24 09:00 10/30/24 22:17 Metoprolol Tartrate 50 Mg Tab PO 100 mg Q12HR MP Administration Nifedipine 10 mg 10/28/24 12:00 10/31/24 06:29 Nifedipine 10 Mg Capsule PO 10 mg Q6HR MP Administration Ondansetron HCl 4 mg 10/28/24 00:06 10/28/24 00:20 Ondansetron Inj 4 Mg/2 Ml Vial IV PUSH 4 mg Q6H PRN Administration Nausea And Vomiting Pantoprazole Sodium 40 mg 10/24/24 21:00 10/30/24 22:17 Pantoprazole Sodium Iv 40 Mg Vial IV PUSH 40 mg Q12HR MP Administration Polyethylene Glycol 17 gm 10/27/24 09:00 10/30/24 08:05 Polyethylene Glycol 3350 17 Gm Powd.Pack PO 17 gm QAM MP Administration Senna/Docusate Sodium 1 tab 10/25/24 21:00 10/30/24 22:16 Senna/Docusate Sodium Tablet PO Not Given HS MP Sodium Bicarbonate 1,300 mg 10/26/24 18:00 10/30/24 18:03 Sodium Bicarbonate Tab 650 Mg Tablet PO 1,300 mg BIDPC MP Administration Sodium Chloride 20 ml 10/24/24 09:29 Central Line Flush IV PUSH PRN PRN after blood draws Sodium Chloride 10 ml 10/24/24 09:29 Central Line Flush IV PUSH PRN PRN with TPN bag changes Sodium Chloride 10 ml 10/24/24 14:00 10/31/24 06:40 Central Line Flush IV PUSH 10 ml Q8HR MP Administration Radiology Results: ITS Impressions Head CT 10/23/24 21:39 Impression: No acute intracranial hemorrhage or suspicious mass effect. Chest/Abdomen/Pelvis CTA 10/23/24 21:44 IMPRESSION: No acute intra-abdominal findings to explain patient's presentation. Mural thickening and edema within the gastric cardia and cecum. Endotracheal tube tip is at the level of the chikis for which withdrawal of approximately 2 cm is suggested for optimal placement. Orogastric tube extends to the second portion of the duodenum, and tenting of the wall is demonstrated. Withdrawal of approximately 9 to 10 cm is recommended for optimal placement and to decrease the risk of perforation. Abdomen X-Ray 10/23/24 23:14 IMPRESSION: Orogastric tube in good position and ready for immediate use. Renal Ultrasound 10/25/24 11:26 IMPRESSION: 1. Bilateral medical renal disease with increased cortical echogenicity and mild cortical thinning at both kidneys. No hydronephrosis. 2. Bilateral renal cysts simple renal cysts as well as a likely benign minimally complex Bosniak 2 complex cystic lesion with a few very thin internal septations in the left kidney. Chest X-Ray 10/28/24 06:23 IMPRESSION: Small left-sided pleural effusion with multifocal infiltrates. Supportive lines and tubes in good position. Brain MRI 10/30/24 10:33 IMPRESSION: 1. 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 No acute intracranial process. 2. Moderate scattered periventricular predominant scattered white matter T2 hyperintensity consistent with chronic small vessel ischemic disease. Labs Labs: Laboratory Results - last 24 hr 10/30/24 10/31/24 10/31/24 07:59 04:08 06:01 WBC 10.2 H 9.9 RBC 3.07 L 3.16 L Hgb 9.4 L 9.5 L Hct 29.0 L 30.3 L MCV 94.5 95.9 MCH 30.6 30.1 MCHC 32.4 31.4 L RDW 13.9 13.6 Plt Count 212 206 MPV 11.0 H 11.3 H Immature Gran % (Auto) 2.1 H 2.1 H Neut % (Auto) 58.4 67.2 Lymph % (Auto) 24.1 18.2 L Campbell % (Auto) 11.5 H 9.4 H Eos % (Auto) 3.4 2.5 Baso % (Auto) 0.5 0.6 Lymph # (Auto) 2.45 1.81 Campbell # (Auto) 1.2 H 0.9 H Eos # (Auto) 0.4 H 0.3 Baso # (Auto) 0.1 0.1 Abs Immat Gran (auto) 0.21 H 0.21 H Absolute Neuts (auto) 6.0 6.7 Absolute Nucleated RBC 0.000 0.000 Nucleated RBC % 0.0 0.0 Sodium 143 140 Potassium 3.5 3.6 Chloride 106 104 Carbon Dioxide 24 25 Anion Gap 13 H 11 BUN 76 H 73 H Creatinine 2.55 H 2.22 H Estim Creat Clear Calc 14 16 Estimated GFR 22 L 26 L Glucose 101 101 Calcium 9.4 9.2 Phosphorus 3.7 3.4 Albumin 3.8 3.3 L
[2024-10-31] MEDS: amLODIPine BESYLATE 2.5 MG TABLET PO (09:20)
[2024-10-31] MEDS: SODIUM BICARBONATE TAB 650 MG TABLET 1300 MG PO ×2 (09:20→17:18)
[2024-10-31] MEDS: METOPROLOL TARTRATE 50 MG TAB 100 MG PO ×2 (09:21→20:25)
[2024-10-31] MEDS: PANTOPRAZOLE SODIUM IV 40 MG VIAL IV PUSH (09:21)
--- NOTE | 2024-10-31 12:20 | P.PNNP_ITS ---
Progress Note: A&P Assessment and Plan (1) SOLOMON (acute kidney injury): Code(s): N17.9 - Acute kidney failure, unspecified Status: Acute Assessment and Plan: * slow improvement noted * at baseline on admission with worsening noted on 10/25 * suspect multifactorial etiology: * infection/sepsis (aspiration pneumonia) * hypoxia * contrast exposure (CTA C/A/P on 10/23/24) * relative hypotension on admission * diuretic use prior to admission * other(?) * evaluation to date noted: * renal u/s consistent with CKD with no acute issues * urine electrolytes prerenal (by FeUrea) * urine eosinophils negative * proteinuria noted * CPK mildly elevated but not enough to affect kidney function * creatinine appears to have peaked/plateaued at 3.33mg/dl * good urine output noted * diuretics PRN * wean off sodium bicarbonate * follow trend of repeat labs and UOP (2) Chronic kidney disease, stage 4 (severe): Code(s): N18.4 - Chronic kidney disease, stage 4 (severe) Status: Chronic Assessment and Plan: * baseline creatinine seems to run ~ 1.8 - 2.6mg/dl in the last few years * likely secondary to hypertension, diabetes, vascular disease, and YAMILKA based on outpatient evaluation * follows with Dr. Juarez in the office for CKD management (3) Acute hypoxemic respiratory failure: Code(s): J96.01 - Acute respiratory failure with hypoxia Status: Acute Assessment and Plan: * resolving * due to aspiuration pneumonia along with fluid * complicated by known history of COPD * on bronchodilators and antibioics * extubated/off the ventilator * wean supplemental oxygen as tolerated (4) Altered mental status: Qualifiers: Altered mental status type: unspecified Qualified Code(s): R41.82 - Altered mental status, unspecified Code(s): R41.82 - Altered mental status, unspecified Status: Acute Assessment and Plan: * appears to be doing much better * follow mentation (5) Sepsis: Code(s): A41.9 - Sepsis, unspecified organism Status: Acute Assessment and Plan: * as noted by presentation - low BP/hypotension, acute respiratory failure, AMS, and lactic acidosis * s/p aggressive IVF resuscitation * lactic acid down trending/normalized * suspect several issues to blame: * diminished oral intake/prerenal factors * infection (aspiration pneumonia) * other (?) * never required vasopressor therapy * completed course of antibiotics * culture data noted (negative to date) (6) Aspiration pneumonia: Code(s): J69.0 - Pneumonitis due to inhalation of food and vomit Status: Acute Assessment and Plan: * slow improvement * completed on antibiotics (7) HTN (hypertension): Code(s): I10 - Essential (primary) hypertension Status: Acute Assessment and Plan: * reasonable control at this time * slowly resuming home BP medications * follow trend of hemodynamics (8) Diabetes: Code(s): E11.9 - Type 2 diabetes mellitus without complications Status: Chronic Assessment and Plan: * follow accu-cheks * glycemic control per hospitalist Will continue to follow. L Subjective Date/time seen: 10/31/24 12:20 Interval history: Follow-up for acute kidney injury/acute renal failure on chronic kidney disease Still with weakness and exertional shortness of breath but continues to make slow and steady progress -- working with therapy as tolerated; renal function/creatinine continues to improve with good urine output as well; stable hemodynamics noted; no acute distress voiced at the time of my visit. Exam 2 Narrative: General: elderly but WD/WN female in NAD Heart: normal S1 and S2; no rub Lungs: coarse breath sounds Abdomen: soft, nontender, nondistended, positive bowel sounds Extremities: no cyanosis or clubbing; trace edema Skin: no rash Objective Data Vital Signs Vital Signs: Vital Signs Temp Pulse Resp BP Pulse Ox O2 Del Method O2 Flow Rate 10/31/24 12:00 98.2 F 89 18 146/60 H 98 10/31/24 09:21 90 10/31/24 08:40 98 Nasal Cannula 2 10/31/24 08:00 89 10/31/24 08:00 98.4 F 91 18 153/53 H 98 10/31/24 07:32 85 20 10/31/24 07:22 83 20 10/31/24 07:22 97 Nasal Cannula 2 10/31/24 04:00 83 10/31/24 04:00 98.8 F 84 16 179/64 H 100 10/31/24 02:05 83 22 H 10/31/24 02:00 86 22 H 10/31/24 00:45 98 Nasal Cannula 2 10/31/24 00:00 77 10/30/24 23:41 98.4 F 78 16 160/53 H 95 10/30/24 22:17 94 10/30/24 20:45 94 22 H 10/30/24 20:38 88 22 H 10/30/24 20:38 98 Nasal Cannula 1 10/30/24 20:30 98 Nasal Cannula 1 10/30/24 20:00 86 10/30/24 20:00 99.1 F 91 18 184/61 H 100 Intake/Output Intake/Output: Intake & Output 10/28/24 10/29/24 10/30/24 10/31/24 23:59 23:59 23:59 23:59 Intake Total 860 1250 1000 2458 Output Total 2450 1400 2300 3 Balance -1590 -150 -1300 2455 Meds/Results Medications: Active Medications Generic Name Dose Route Start Last Admin Trade Name Freq PRN Reason Stop Dose Admin Acetaminophen 650 mg 10/23/24 22:23 10/28/24 00:20 Acetaminophen 325 Mg Tablet PO 650 mg Q4H PRN Administration Mild Pain (1-3) or Fever Albuterol/Ipratropium 3 ml 10/24/24 14:00 10/31/24 14:08 Ipratropium 0.5 Mg/Albuterol Sulfate 2.5 Mg Ampul.Neb 3 Ml INHALATION 3 ml Q6HRT MP Administration Amlodipine Besylate 2.5 mg 10/29/24 09:00 10/31/24 09:20 Amlodipine Besylate 2.5 Mg Tablet PO 2.5 mg QAM MP Administration Dextrose 12.5 gm 10/24/24 11:04 Dextrose 50% 25 Gm/50 Ml Syringe IV PUSH PRN PRN Hypoglycemia Protocol Enoxaparin Sodium 30 mg 10/24/24 09:00 10/24/24 09:51 Enoxaparin 30 Mg/0.3 Ml Syringe SUB-Q 30 mg DAILY MP Administration Glucagon 1 mg 10/24/24 11:04 Glucagon For Inj 1 Mg Vial IM PRN PRN Hypoglycemia Protocol Glucose 15 gm 10/24/24 11:04 Glucose Oral Gel 15 Gm Of Glucse In 37.5 Gm Tube PO PRN PRN Hypoglycemia Protocol Hydralazine HCl 10 mg 10/27/24 11:43 10/31/24 06:29 Hydralazine Hcl 20 Mg/Ml Vial IV PUSH 10 mg Q4H PRN Administration Blood Pressure - High Dextrose 1,000 mls @ 100 mls/hr 10/24/24 11:04 Dextrose 5% 1,000 Ml IVPB PRN PRN Hypoglycemia Protocol Metoprolol Tartrate 100 mg 10/28/24 09:00 10/31/24 09:21 Metoprolol Tartrate 50 Mg Tab PO 100 mg Q12HR MP Administration Nifedipine 10 mg 10/28/24 12:00 10/31/24 17:18 Nifedipine 10 Mg Capsule PO 10 mg Q6HR MP Administration Ondansetron HCl 4 mg 10/28/24 00:06 10/28/24 00:20 Ondansetron Inj 4 Mg/2 Ml Vial IV PUSH 4 mg Q6H PRN Administration Nausea And Vomiting Pantoprazole Sodium 40 mg 10/31/24 21:00 Pantoprazole 40 Mg Tablet PO Q12HR MP Polyethylene Glycol 17 gm 10/27/24 09:00 10/31/24 09:21 Polyethylene Glycol 3350 17 Gm Powd.Pack PO Not Given QAM MP Senna/Docusate Sodium 1 tab 10/25/24 21:00 10/30/24 22:16 Senna/Docusate Sodium Tablet PO Not Given HS MP Sodium Bicarbonate 1,300 mg 10/26/24 18:00 10/31/24 17:18 Sodium Bicarbonate Tab 650 Mg Tablet PO 1,300 mg BIDPC MP Administration Sodium Chloride 20 ml 10/24/24 09:29 Central Line Flush IV PUSH PRN PRN after blood draws Sodium Chloride 10 ml 10/24/24 09:29 Central Line Flush IV PUSH PRN PRN with TPN bag changes Sodium Chloride 10 ml 10/24/24 14:00 10/31/24 12:25 Central Line Flush IV PUSH 10 ml Q8HR MP Administration Radiology Results: ITS Impressions Head CT 10/23/24 21:39 Impression: No acute intracranial hemorrhage or suspicious mass effect. Chest/Abdomen/Pelvis CTA 10/23/24 21:44 IMPRESSION: No acute intra-abdominal findings to explain patient's presentation. Mural thickening and edema within the gastric cardia and cecum. Endotracheal tube tip is at the level of the chikis for which withdrawal of approximately 2 cm is suggested for optimal placement. Orogastric tube extends to the second portion of the duodenum, and tenting of the wall is demonstrated. Withdrawal of approximately 9 to 10 cm is recommended for optimal placement and to decrease the risk of perforation. Abdomen X-Ray 10/23/24 23:14 IMPRESSION: Orogastric tube in good position and ready for immediate use. Renal Ultrasound 10/25/24 11:26 IMPRESSION: 1. Bilateral medical renal disease with increased cortical echogenicity and mild cortical thinning at both kidneys. No hydronephrosis. 2. Bilateral renal cysts simple renal cysts as well as a likely benign minimally complex Bosniak 2 complex cystic lesion with a few very thin internal septations in the left kidney. Chest X-Ray 10/28/24 06:23 IMPRESSION: Small left-sided pleural effusion with multifocal infiltrates. Supportive lines and tubes in good position. Brain MRI 10/30/24 10:33 IMPRESSION: 1. 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 No acute intracranial process. 2. Moderate scattered periventricular predominant scattered white matter T2 hyperintensity consistent with chronic small vessel ischemic disease. Labs Labs: Laboratory Tests 10/31/24 06:01 10/31/24 04:08 Calcium 9.2 Phosphorus 3.4 Albumin 3.3 L
[2024-10-31] MEDS: PANTOPRAZOLE 40 MG TABLET PO (20:25)
[2024-10-31] MEDS: SENNA/DOCUSATE SODIUM TABLET 1 TAB PO (20:25)
[2024-11-01] VITALS (9 sets, daily range): BP systolic 150–167; BP diastolic 50–53; PULSE 70–80; RESP 14–20; TEMP 36.5–36.6; O2SAT 95–100
[2024-11-01] MEDS: NIFEdipine 10 MG CAPSULE PO ×2 (05:58→12:28)
[2024-11-01 06:27] LABS: Basophils Absolute Auto 0.1 K/mm3 (0.0-0.1); Basophils Percent Auto 0.6 % (0.2-1.2); Eosinophils Absolute Auto 0.2 K/mm3 (0-0.3); Eosinophils Percent Auto 2.3 % (0-4.4); Hematocrit 26.1 % (37.0-47.0); Hemoglobin 8.4 g/dL (12.0-15.0); Immature Granulocyte Absolute 0.19 K/mm3 (0.00-0.031); Immature Granulocyte Percent A 2.2 % (0-0.5); Lymphocytes Absolute Auto 1.81 K/mm3 (0.9-3.2); Lymphocytes Percent Auto 21.1 % (18.3-44.2); Mean Corpuscular HGB Conc 32.2 g/dl (32-36); Mean Corpuscular Hemoglobin 30.7 pg (26-34); Mean Corpuscular Volume 95.3 fl (80-100); Mean Platelet Volume 11.2 fl (7.4-10.4); Monocytes Absolute Auto 0.7 K/mm3 (0.1-0.6); Neutrophils Absolute Auto 5.7 K/mm3 (1.3-6.7); Neutrophils Percent Auto 65.8 % (45.5-73.1); Platelet Count Result 202 k/mm3 (150-375); Red Blood Count 2.74 M/mm3 (4.2-5.4); Red Cell Distribution Width 13.7 % (11.5-14.5); White Blood Count 8.6 K/mm3 (4.5-10.0)
[2024-11-01 06:38] LABS: Albumin Level 3.5 g/dL (3.5-5.1); Anion Gap 9 mmol/L (4-12); Blood Urea Nitrogen 65 mg/dL (7-17); Calcium 9.1 mg/dL (8.4-10.2); Carbon Dioxide 27 mmol/L (22-30); Chloride 104 mmol/L (98-107); Estimated CRCL calculation 16 ml/min; Estimated Glomerular Filt Rate 22; Glucose 96 mg/dL (65-110); Phosphorus 3.8 mg/dL (2.5-4.5); Potassium 3.2 mmol/L (3.4-5.0); Sodium 140 mmol/L (137-145)
--- NOTE | 2024-11-01 08:27 | P.PNIM_ITS ---
Progress Note: A&P Assessment and Plan (1) Diabetes: Code(s): E11.9 - Type 2 diabetes mellitus without complications Status: Chronic (2) Secondary hyperparathyroidism, not elsewhere classified: Code(s): E21.1 - Secondary hyperparathyroidism, not elsewhere classified Status: Acute Plan Altered mental status: Qualifiers: Altered mental status type: unspecified Qualified Code(s): R41.82 - Altered mental status, unspecified Code(s): R41.82 - Altered mental status, unspecified Status: Acute Assessment and Plan: Patient was found unresponsive at home by her son, Upon EMS arrival she did have a pulse but was difficult to intubate so laryngeal airway was placed, patient brought to ED which she was intubated. Drug screen positive for benzodiazepines and cannabis , suspecting toxic encephalopathy Patient received fluid resuscitation Chronic patient is weak 10/23/2024: -CT brain with no acute intracranial hemorrhage or suspicious mass effect, patient was suspect TIA vs stroke, MRI was not done due to intubation. 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 No acute intracranial process. Acute Respiratory failure requiring intubation: Code(s): J96.90 - Respiratory failure, unspecified, unspecified whether with hypoxia or hypercapnia Status: Acute Assessment and Plan: Patient was unresponsive at home, had emesis. Failed intubation on side by EMS, laryngeal airway was inserted -10/23: Intubated upon arrival to the ER for airway protection and possible aspiration chest x-ray this morning showed: Worsening central congestive change and patchy bilateral airspace disease. Correlate for worsening pulmonary edema versus pneumonia. given history of asthma and COPD, continue bronchodilators Likely resulting from pneumonia, COPD exacerbation, substance abuse Patient was acid repeated October 27 Tolerated extubation now on 1 L O2 Sepsis: Code(s): A41.9 - Sepsis, unspecified organism Status: Acute Assessment and Plan: Elevated lactic acidosis, hypotension,, respiratory failure, altered mental status -lactic acid trending down adequate IV fluid -according the son patient has not been taking adequate oral intake, liquids as well as solids for the last 2-3 weeks -could be hypovolemia secondary to decreased oral intake Received intravascular volume expansion with albumin continue cefepime and vancomycin (10/23) -continue doxycycline (10/25) -10/23: Preliminary blood cultures are negative 10/24/2024: Echocardiogram Summary 1. Complete two-dimensional, color flow and Doppler transthoracic echocardiogram is performed. 2. There is normal biventricular size and systolic function. 3. There is no significant valvular disease. 4. The atrial septum appears aneurysmal however there is no [id number] shunt by agitated saline study. Patient finished treatment of cefepime and Flagyl, continued doxycycline 100 mg b.i.d IV till Oct 30 per ID pharmacist Aspiration pneumonia: Code(s): J69.0 - Pneumonitis due to inhalation of food and vomit Status: Acute Assessment and Plan: Pt had emesis at home, possible aspiration pneumonitis/pneumonia 10/25: CXR: Worsening central congestive change and patchy bilateral airspace disease. Correlate for worsening pulmonary edema versus pneumonia antibiotics as above. Finished antibiotics treatment Positive urine drug screen: Code(s): R82.5 - Elevated urine levels of drugs, medicaments and biological substances Status: Acute Assessment and Plan: Urine drug screen was positive for cannabinoids and benzodiazepine Hypoglycemia: Code(s): E16.2 - Hypoglycemia, unspecified Status: Acute Assessment and Plan: Patient has a history of type 2 diabetes, was hypoglycemic when EMS arrived, received dextrose -blood sugars have been stable -continue Accu-Cheks and sliding scale insulin SOLOMON on CKD Chronic kidney disease, stage 4 (severe): Code(s): N18.4 - Chronic kidney disease, stage 4 (severe) Status: Chronic Assessment and Plan: Acute on chronic kidney disease stage IV, creatinine was at baseline on admission, -patient has been adequately fluid-resuscitated, added albumin for further intravascular volume repletion -10/25: Elevated creatinine, patient also received contrast on admission, could be related to contrast induced nephropathy, sepsis -10/25: Renal ultrasound showed bilateral medical renal disease, bilateral renal cysts, no hydronephrosis or stones. -urine lytes was not prerenal, negative urine eosinophils, CK levels 289 appreciate Nephrology evaluation and recommendations Kidney function continued to improve Consult fish filleter for evaluation treatment HTN (hypertension): Code(s): I10 - Essential (primary) hypertension Status: Acute Assessment and Plan: History of essential hypertension, metoprolol at half the dose that she takes at home -p.r.n. hydralazine Diabetes: Code(s): E11.9 - Type 2 diabetes mellitus without complications Status: Chronic Assessment and Plan: Accu-Cheks and sliding scale insulin Plan DVT prophylaxis: SCDs, hold chemoprophylaxis due to coffee-ground drainage in the OG tube, anemia Stress ulcer prophylaxis: Protonix IV q.12 hours Nutrition: All in tube feeds for possible extubation will add p.r.n. MiraLax and senna S Consult PT OT cervical for evaluation and assisting placement. Patient has physical decondition due to comorbidities is aggravated bed recent acute illness. Patient may benefit from rehab in the [place] [facility] Subjective Date/time seen: 11/01/24 08:27 Interval history: I saw examined patient present of pt's son. Patient was ambulated with assistance of physical therapist, and patient has short of breath after walking, but denies chest pain headache, lightheadedness, abdomen pain nausea vomiting Creatinine is trending down to 2.17 today, patient is on 2 L oxygen, still has general weakness Exam Narrative: GENERAL: Ill-appearing in no acute distress. Well-nourished. - EYES: EOMI. Anicteric. - HENT: Moist mucous membranes. - LUNGS: Coarse breath sound bilaterall y, no wheezing, rhonchi, or rales. - CARDIOVASCULAR: Regular rate and rhyth m. No murmur. No JVD. - ABDOMEN: Soft, non-tender and non-dist ended. No palpable masses. - EXTREMITIES: No edema. Peripheral puls es 2+. Non-tender. - NEUROLOGIC: No focal neurological defi cits. CN II-XII grossly intact. General weakness - PSYCHIATRIC: Awake, Alert and oriented x 3. Appropriate mood and affect. - SKIN: No rashes or lesions. Warm. - LYMPH: No cervical lymphadenopathy. Objective Data Vital Signs Vital Signs: Vital Signs - 24 hr 10/31/24 08:40 10/31/24 09:21 10/31/24 12:00 Temperature 98.2 F Pulse Rate 90 89 Respiratory Rate 18 Blood Pressure 146/60 H Pulse Oximetry 98 98 Oxygen Delivery Nasal Cannula Oxygen Flow Rate 2 10/31/24 14:11 10/31/24 14:19 10/31/24 16:00 Temperature 98.2 F Pulse Rate 74 74 88 Respiratory Rate 16 20 20 Blood Pressure 134/76 Pulse Oximetry 96 Oxygen Delivery Oxygen Flow Rate 10/31/24 19:30 10/31/24 20:00 10/31/24 20:25 Temperature 98.2 F Pulse Rate 88 88 Respiratory Rate 17 Blood Pressure 152/49 H Pulse Oximetry 100 100 Oxygen Delivery Nasal Cannula Oxygen Flow Rate 2 10/31/24 20:59 10/31/24 21:08 10/31/24 23:50 Temperature 97.8 F Pulse Rate 78 80 75 Respiratory Rate 20 20 17 Blood Pressure 153/55 H Pulse Oximetry 100 Oxygen Delivery Oxygen Flow Rate 11/01/24 01:22 11/01/24 04:00 Temperature 97.9 F Pulse Rate 70 Respiratory Rate 18 Blood Pressure 150/50 H Pulse Oximetry 95 100 Oxygen Delivery Nasal Cannula Oxygen Flow Rate 2 Intake/Output Intake/Output: Intake & Output 10/29/24 10/30/24 10/31/24 11/01/24 23:59 23:59 23:59 23:59 Intake Total 1250 1000 2698 100 Output Total 1400 2300 403 200 Balance -150 -1300 2295 -100 Meds/Results Medications: Active Medications Generic Name Dose Route Start Last Admin Trade Name Freq PRN Reason Stop Dose Admin Acetaminophen 650 mg 10/23/24 22:23 10/28/24 00:20 Acetaminophen 325 Mg Tablet PO 650 mg Q4H PRN Administration Mild Pain (1-3) or Fever Albuterol/Ipratropium 3 ml 10/24/24 14:00 11/01/24 01:21 Ipratropium 0.5 Mg/Albuterol Sulfate 2.5 Mg Ampul.Neb 3 Ml INHALATION Not Given Q6HRT MP Amlodipine Besylate 2.5 mg 10/29/24 09:00 10/31/24 09:20 Amlodipine Besylate 2.5 Mg Tablet PO 2.5 mg QAM MP Administration Dextrose 12.5 gm 10/24/24 11:04 Dextrose 50% 25 Gm/50 Ml Syringe IV PUSH PRN PRN Hypoglycemia Protocol Enoxaparin Sodium 30 mg 10/24/24 09:00 10/24/24 09:51 Enoxaparin 30 Mg/0.3 Ml Syringe SUB-Q 30 mg DAILY MP Administration Glucagon 1 mg 10/24/24 11:04 Glucagon For Inj 1 Mg Vial IM PRN PRN Hypoglycemia Protocol Glucose 15 gm 10/24/24 11:04 Glucose Oral Gel 15 Gm Of Glucse In 37.5 Gm Tube PO PRN PRN Hypoglycemia Protocol Hydralazine HCl 10 mg 10/27/24 11:43 10/31/24 06:29 Hydralazine Hcl 20 Mg/Ml Vial IV PUSH 10 mg Q4H PRN Administration Blood Pressure - High Dextrose 1,000 mls @ 100 mls/hr 10/24/24 11:04 Dextrose 5% 1,000 Ml IVPB PRN PRN Hypoglycemia Protocol Metoprolol Tartrate 100 mg 10/28/24 09:00 10/31/24 20:25 Metoprolol Tartrate 50 Mg Tab PO 100 mg Q12HR MP Administration Nifedipine 10 mg 10/28/24 12:00 11/01/24 05:58 Nifedipine 10 Mg Capsule PO 10 mg Q6HR MP Administration Ondansetron HCl 4 mg 10/28/24 00:06 10/28/24 00:20 Ondansetron Inj 4 Mg/2 Ml Vial IV PUSH 4 mg Q6H PRN Administration Nausea And Vomiting Pantoprazole Sodium 40 mg 10/31/24 21:00 10/31/24 20:25 Pantoprazole 40 Mg Tablet PO 40 mg Q12HR MP Administration Polyethylene Glycol 17 gm 10/27/24 09:00 10/31/24 09:21 Polyethylene Glycol 3350 17 Gm Powd.Pack PO Not Given QAM MP Senna/Docusate Sodium 1 tab 10/25/24 21:00 10/31/24 20:25 Senna/Docusate Sodium Tablet PO 1 tab HS MP Administration Sodium Bicarbonate 1,300 mg 10/26/24 18:00 10/31/24 17:18 Sodium Bicarbonate Tab 650 Mg Tablet PO 1,300 mg BIDPC MP Administration Sodium Chloride 20 ml 10/24/24 09:29 Central Line Flush IV PUSH PRN PRN after blood draws Sodium Chloride 10 ml 10/24/24 09:29 Central Line Flush IV PUSH PRN PRN with TPN bag changes Sodium Chloride 10 ml 10/24/24 14:00 10/31/24 20:26 Central Line Flush IV PUSH 10 ml Q8HR MP Administration Radiology Results: ITS Impressions Head CT 10/23/24 21:39 Impression: No acute intracranial hemorrhage or suspicious mass effect. Chest/Abdomen/Pelvis CTA 10/23/24 21:44 IMPRESSION: No acute intra-abdominal findings to explain patient's presentation. Mural thickening and edema within the gastric cardia and cecum. Endotracheal tube tip is at the level of the chikis for which withdrawal of approximately 2 cm is suggested for optimal placement. Orogastric tube extends to the second portion of the duodenum, and tenting of the wall is demonstrated. Withdrawal of approximately 9 to 10 cm is recommended for optimal placement and to decrease the risk of perforation. Abdomen X-Ray 10/23/24 23:14 IMPRESSION: Orogastric tube in good position and ready for immediate use. Renal Ultrasound 10/25/24 11:26 IMPRESSION: 1. Bilateral medical renal disease with increased cortical echogenicity and mild cortical thinning at both kidneys. No hydronephrosis. 2. Bilateral renal cysts simple renal cysts as well as a likely benign minimally complex Bosniak 2 complex cystic lesion with a few very thin internal septations in the left kidney. Chest X-Ray 10/28/24 06:23 IMPRESSION: Small left-sided pleural effusion with multifocal infiltrates. Supportive lines and tubes in good position. Brain MRI 10/30/24 10:33 IMPRESSION: 1. 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 No acute intracranial process. 2. Moderate scattered periventricular predominant scattered white matter T2 hyperintensity consistent with chronic small vessel ischemic disease. Labs Labs: Laboratory Results - last 24 hr 11/01/24 05:46 WBC 8.6 RBC 2.74 L Hgb 8.4 L Hct 26.1 L MCV 95.3 MCH 30.7 MCHC 32.2 RDW 13.7 Plt Count 202 MPV 11.2 H Immature Gran % (Auto) 2.2 H Neut % (Auto) 65.8 Lymph % (Auto) 21.1 Bremer % (Auto) 8.0 Eos % (Auto) 2.3 Baso % (Auto) 0.6 Lymph # (Auto) 1.81 Bremer # (Auto) 0.7 H Eos # (Auto) 0.2 Baso # (Auto) 0.1 Abs Immat Gran (auto) 0.19 H Absolute Neuts (auto) 5.7 Absolute Nucleated RBC 0.000 Nucleated RBC % 0.0 Sodium 140 Potassium 3.2 L Chloride 104 Carbon Dioxide 27 Anion Gap 9 BUN 65 H Creatinine 2.17 H Estim Creat Clear Calc 16 Estimated GFR 22 L Glucose 96 Calcium 9.1 Phosphorus 3.8 Albumin 3.5
[2024-11-01] MEDS: amLODIPine BESYLATE 2.5 MG TABLET PO (08:34)
[2024-11-01] MEDS: PANTOPRAZOLE 40 MG TABLET PO (08:34)
[2024-11-01] MEDS: SODIUM BICARBONATE TAB 650 MG TABLET 1300 MG PO (08:34)
[2024-11-01] MEDS: METOPROLOL TARTRATE 50 MG TAB 100 MG PO (08:34)
[2024-11-01] MEDS: CENTRAL LINE FLUSH 10 ML IV PUSH (08:35)
[2024-11-01] MEDS: IPRATROPIUM 0.5 MG/ALBUTEROL SULFATE 2.5 MG AMPUL.NEB 3 ML INHALATION (09:20)
--- NOTE | 2024-11-01 11:01 | PCNFU ---
Nutrition Follow-Up Complete: Suboptimal nutrition as related to mechanical vent as evidenced by NPO. Goal: Meet estimated nutritional needs. Patient is progressing towards goal. We will continue current goal. Pt current nutrition is Soft and Bite Sized, level 6/Renal with Nepro BID. Last recorded weight is 70.2 kg, up from 55.4 kg on admit. Dialysis pt. Bowel Motility: +BM reported 11/01 Labs Reviewed:Cr 2.17, BUN 65, GFR 22, K 3.2 Meds Noted:Protonix, Lopressor Skin: WNL Additional Notes: Patient diet order advanced to Soft and Bite sized, Level 6. Oral intake improving > 75% of meals. Agree with diet orders. Will monitor in ICU rounds and reassess weight, labs, skin, diet orders, meds every 5 days.
--- NOTE | 2024-11-01 11:50 | P.PNNP_ITS ---
Progress Note: A&P Assessment and Plan (1) SOLOMON (acute kidney injury): Code(s): N17.9 - Acute kidney failure, unspecified Status: Acute Assessment and Plan: * resolving if not resolved * at baseline on admission with worsening noted on 10/25 * suspect multifactorial etiology: * infection/sepsis (aspiration pneumonia) * hypoxia * contrast exposure (CTA C/A/P on 10/23/24) * relative hypotension on admission * diuretic use prior to admission * other(?) * evaluation to date noted: * renal u/s consistent with CKD with no acute issues * urine electrolytes prerenal (by FeUrea) * urine eosinophils negative * proteinuria noted * CPK mildly elevated but not enough to affect kidney function * creatinine appears to have peaked/plateaued at 3.33mg/dl * good urine output noted * diuretics PRN * wean off sodium bicarbonate * follow trend of repeat labs and UOP (2) Chronic kidney disease, stage 4 (severe): Code(s): N18.4 - Chronic kidney disease, stage 4 (severe) Status: Chronic Assessment and Plan: * baseline creatinine seems to run ~ 1.8 - 2.6mg/dl in the last few years * likely secondary to hypertension, diabetes, vascular disease, and YAMILKA based on outpatient evaluation * follows with Dr. Juarez in the office for CKD management (3) Acute hypoxemic respiratory failure: Code(s): J96.01 - Acute respiratory failure with hypoxia Status: Acute Assessment and Plan: * resolving * due to aspiuration pneumonia along with fluid * complicated by known history of COPD * on bronchodilators and antibioics * extubated/off the ventilator * wean supplemental oxygen as tolerated (4) Altered mental status: Qualifiers: Altered mental status type: unspecified Qualified Code(s): R41.82 - Altered mental status, unspecified Code(s): R41.82 - Altered mental status, unspecified Status: Acute Assessment and Plan: * appears to be doing much better * follow mentation (5) Sepsis: Code(s): A41.9 - Sepsis, unspecified organism Status: Acute Assessment and Plan: * as noted by presentation - low BP/hypotension, acute respiratory failure, AMS, and lactic acidosis * s/p aggressive IVF resuscitation * lactic acid down trending/normalized * suspect several issues to blame: * diminished oral intake/prerenal factors * infection (aspiration pneumonia) * other (?) * never required vasopressor therapy * completed course of antibiotics * culture data noted (negative to date) (6) Aspiration pneumonia: Code(s): J69.0 - Pneumonitis due to inhalation of food and vomit Status: Acute Assessment and Plan: * slow improvement * completed on antibiotics (7) HTN (hypertension): Code(s): I10 - Essential (primary) hypertension Status: Acute Assessment and Plan: * reasonable control at this time * slowly resuming home BP medications * follow trend of hemodynamics (8) Diabetes: Code(s): E11.9 - Type 2 diabetes mellitus without complications Status: Chronic Assessment and Plan: * follow accu-cheks * glycemic control per hospitalist Will continue to follow. L Subjective Date/time seen: 11/01/24 11:50 Interval history: Follow-up for acute kidney injury/acute renal failure on chronic kidney disease Overall, continues to make slow improvement -- breathing/respiratory status doing better and nursing attempting to wean off supplemental oxygen when seen; working with therapy as tolerated as well; no issues/problems overnight or earlier this morning; no apparent distress to report on my visit. Exam 2 Narrative: General: elderly but WD/WN female in NAD Heart: normal S1 and S2; no rub Lungs: coarse breath sounds Abdomen: soft, nontender, nondistended, positive bowel sounds Extremities: no cyanosis or clubbing; trace edema Skin: no nodules Objective Data Vital Signs Vital Signs: Vital Signs Temp Pulse Resp BP Pulse Ox O2 Del Method O2 Flow Rate 11/01/24 09:36 79 20 11/01/24 09:23 80 20 11/01/24 09:22 95 Nasal Cannula 2 11/01/24 08:35 98 Room Air 11/01/24 08:34 80 11/01/24 08:00 97.7 F 79 14 167/53 H 100 11/01/24 04:00 97.9 F 70 18 150/50 H 100 11/01/24 01:22 95 Nasal Cannula 2 10/31/24 23:50 97.8 F 75 17 153/55 H 100 10/31/24 21:08 80 20 10/31/24 20:59 78 20 10/31/24 20:25 88 10/31/24 20:00 100 Nasal Cannula 2 10/31/24 19:30 98.2 F 88 17 152/49 H 100 10/31/24 16:00 98.2 F 88 20 134/76 96 10/31/24 14:19 74 20 10/31/24 14:11 74 16 10/31/24 12:00 98.2 F 89 18 146/60 H 98 Intake/Output Intake/Output: Intake & Output 10/29/24 10/30/24 10/31/24 11/01/24 23:59 23:59 23:59 23:59 Intake Total 1250 1000 2698 576 Output Total 1400 2300 403 200 Balance -150 -1300 2295 376 Meds/Results Medications: Active Medications Generic Name Dose Route Start Last Admin Trade Name Freq PRN Reason Stop Dose Admin Acetaminophen 650 mg 10/23/24 22:23 10/28/24 00:20 Acetaminophen 325 Mg Tablet PO 650 mg Q4H PRN Administration Mild Pain (1-3) or Fever Albuterol/Ipratropium 3 ml 10/24/24 14:00 11/01/24 09:20 Ipratropium 0.5 Mg/Albuterol Sulfate 2.5 Mg Ampul.Neb 3 Ml INHALATION 3 ml Q6HRT MP Administration Amlodipine Besylate 2.5 mg 10/29/24 09:00 11/01/24 08:34 Amlodipine Besylate 2.5 Mg Tablet PO 2.5 mg QAM MP Administration Dextrose 12.5 gm 10/24/24 11:04 Dextrose 50% 25 Gm/50 Ml Syringe IV PUSH PRN PRN Hypoglycemia Protocol Enoxaparin Sodium 30 mg 10/24/24 09:00 10/24/24 09:51 Enoxaparin 30 Mg/0.3 Ml Syringe SUB-Q 30 mg DAILY MP Administration Glucagon 1 mg 10/24/24 11:04 Glucagon For Inj 1 Mg Vial IM PRN PRN Hypoglycemia Protocol Glucose 15 gm 10/24/24 11:04 Glucose Oral Gel 15 Gm Of Glucse In 37.5 Gm Tube PO PRN PRN Hypoglycemia Protocol Hydralazine HCl 10 mg 10/27/24 11:43 10/31/24 06:29 Hydralazine Hcl 20 Mg/Ml Vial IV PUSH 10 mg Q4H PRN Administration Blood Pressure - High Dextrose 1,000 mls @ 100 mls/hr 10/24/24 11:04 Dextrose 5% 1,000 Ml IVPB PRN PRN Hypoglycemia Protocol Metoprolol Tartrate 100 mg 10/28/24 09:00 11/01/24 08:34 Metoprolol Tartrate 50 Mg Tab PO 100 mg Q12HR MP Administration Nifedipine 10 mg 10/28/24 12:00 11/01/24 05:58 Nifedipine 10 Mg Capsule PO 10 mg Q6HR MP Administration Ondansetron HCl 4 mg 10/28/24 00:06 10/28/24 00:20 Ondansetron Inj 4 Mg/2 Ml Vial IV PUSH 4 mg Q6H PRN Administration Nausea And Vomiting Pantoprazole Sodium 40 mg 10/31/24 21:00 11/01/24 08:34 Pantoprazole 40 Mg Tablet PO 40 mg Q12HR MP Administration Polyethylene Glycol 17 gm 10/27/24 09:00 11/01/24 08:37 Polyethylene Glycol 3350 17 Gm Powd.Pack PO Not Given QAM MP Senna/Docusate Sodium 1 tab 10/25/24 21:00 10/31/24 20:25 Senna/Docusate Sodium Tablet PO 1 tab HS MP Administration Sodium Bicarbonate 1,300 mg 10/26/24 18:00 11/01/24 08:34 Sodium Bicarbonate Tab 650 Mg Tablet PO 1,300 mg BIDPC MP Administration Sodium Chloride 20 ml 10/24/24 09:29 Central Line Flush IV PUSH PRN PRN after blood draws Sodium Chloride 10 ml 10/24/24 09:29 Central Line Flush IV PUSH PRN PRN with TPN bag changes Sodium Chloride 10 ml 10/24/24 14:00 11/01/24 08:35 Central Line Flush IV PUSH 10 ml Q8HR MP Administration Radiology Results: ITS Impressions Head CT 10/23/24 21:39 Impression: No acute intracranial hemorrhage or suspicious mass effect. Chest/Abdomen/Pelvis CTA 10/23/24 21:44 IMPRESSION: No acute intra-abdominal findings to explain patient's presentation. Mural thickening and edema within the gastric cardia and cecum. Endotracheal tube tip is at the level of the chikis for which withdrawal of approximately 2 cm is suggested for optimal placement. Orogastric tube extends to the second portion of the duodenum, and tenting of the wall is demonstrated. Withdrawal of approximately 9 to 10 cm is recommended for optimal placement and to decrease the risk of perforation. Abdomen X-Ray 10/23/24 23:14 IMPRESSION: Orogastric tube in good position and ready for immediate use. Renal Ultrasound 10/25/24 11:26 IMPRESSION: 1. Bilateral medical renal disease with increased cortical echogenicity and mild cortical thinning at both kidneys. No hydronephrosis. 2. Bilateral renal cysts simple renal cysts as well as a likely benign minimally complex Bosniak 2 complex cystic lesion with a few very thin internal septations in the left kidney. Chest X-Ray 10/28/24 06:23 IMPRESSION: Small left-sided pleural effusion with multifocal infiltrates. Supportive lines and tubes in good position. Brain MRI 10/30/24 10:33 IMPRESSION: 1. 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 No acute intracranial process. 2. Moderate scattered periventricular predominant scattered white matter T2 hyperintensity consistent with chronic small vessel ischemic disease. Labs Labs: Laboratory Tests 11/01/24 05:46 11/01/24 05:46 Calcium 9.1 Phosphorus 3.8 Albumin 3.5
--- NOTE | 2024-11-01 11:59 | PM.DS ---
DS: Admitting Diagnosis Discharge Date 11/01 Admitting Diagnosis (1) Diabetes: Code(s): E11.9 - Type 2 diabetes mellitus without complications Status: Chronic (2) Secondary hyperparathyroidism, not elsewhere classified: Code(s): E21.1 - Secondary hyperparathyroidism, not elsewhere classified Status: Acute DS: Discharge Diagnosis Discharge Diagnosis (1) Diabetes: Code(s): E11.9 - Type 2 diabetes mellitus without complications Status: Chronic (2) Secondary hyperparathyroidism, not elsewhere classified: Code(s): E21.1 - Secondary hyperparathyroidism, not elsewhere classified Status: Acute DS: Summary Hospital Course Hospital Course: Per H&P: This is an 83-year-old female who presents to [facility] via EMS after she was found unresponsive at home. She carries an extensive history including CKD stage IV, prior CVA with residual gait imbalance, secondary hyperparathyroidism, obesity, osteoarthritis, gout, asthma/COPD, GERD, hypercholesterolemia, anemia, non-insulin dependent diabetes mellitus, sleep apnea, hypertension, history of UTI, dementia, CHF? History is taken from the son Camacho and relayed information from ER physician. The patient lives with her , the son Camacho is actively helping to take care of her. Reportedly the patient has been in her usual state of health, she has dementia and is only A&O times 1-2. On the day of arrival to the ER on 10/23/2024 the son (Camacho) had given the patient a CBD drink to help calm her anxiety. He obtained the CBD drink from a relative who owns multiple CBD shops in [place]. Camacho then left the house around noon. A caregiver left the house around 2:00 p.m. and that was her last known well time. Camacho returned to the house around 5:00 p.m. and he observed the patient laying at the edge of the bed with her feet up but leaning to the side appearing as if she had fallen asleep. This is where she hangs out often. Sometime later Camacho noticed the patient to have wet herself. He intended to clean her up after she woke up so he had repositioned her in bed and when she was laid flat on her back he noticed she had her tongue out and vomitus on the pillow. She appeared to be gasping for air. Camacho contacted 911 and they asked him to check a pulse. He reports he could not find a pulse but with the consideration he is not a medical professional and was in distress himself. He was told to start CPR. When EMS arrived she was of course obtunded. She was intubated with difficulty and the tube dislodged and a supraglottic airway was placed. Per EMS, a pulse was present. Reportedly she received etomidate and benzodiazepine. This was reported by ER physician however the EMS run sheet is scant and does not provide much useful information. Reportedly, she had a glucose of 53 in the field and was started on a D10 drip. On arrival patient had a blood pressure of 176/116 and saturating 100% through a supraglottic airway. It was exchanged with an ET tube and an NG tube was placed. Received etomidate and rocuronium on this occasion. She was given a L of fluid. Imaging was obtained. WBC 8.5, hemoglobin 12.2, ABG demonstrated pH is 7.3 and pCO2 of 34, bicarb 17.5, BUN 53, serum creatinine 2.52, serum glucose 116, lactic acid 3.7, troponin 0.012, BNP 1470, UA with positive protein and trace leukocyte esterase. Urine drug screen positive for benzodiazepines and cannabinoids. Salicylate and acetaminophen negative. Quad viral screen negative. CTA chest abdomen pelvis negative for PE. Right basilar atelectasis. Mural thickening and edema within the gastric cardia and cecum. Head CT without acute findings. Patient was started on cefepime and vancomycin. Press Puller consulted from the ER. The following med issues have been addressed during hospitalization Altered mental status: Qualifiers: Altered mental status type: unspecified Qualified Code(s): R41.82 - Altered mental status, unspecified Code(s): R41.82 - Altered mental status, unspecified Status: Acute Assessment and Plan: Patient was found unresponsive at home by her son, Upon EMS arrival she did have a pulse but was difficult to intubate so laryngeal airway was placed, patient brought to ED which she was intubated. Drug screen positive for benzodiazepines and cannabis , suspecting toxic encephalopathy Patient received fluid resuscitation Chronic patient is weak 10/23/2024: -CT brain with no acute intracranial hemorrhage or suspicious mass effect, patient was suspect TIA vs stroke, MRI was not done due to intubation. 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 No acute intracranial process. Acute Respiratory failure requiring intubation: Code(s): J96.90 - Respiratory failure, unspecified, unspecified whether with hypoxia or hypercapnia Status: Acute Assessment and Plan: Patient was unresponsive at home, had emesis. Failed intubation on side by EMS, laryngeal airway was inserted -10/23: Intubated upon arrival to the ER for airway protection and possible aspiration chest x-ray this morning showed: Worsening central congestive change and patchy bilateral airspace disease. Correlate for worsening pulmonary edema versus pneumonia. given history of asthma and COPD, continue bronchodilators Likely resulting from pneumonia, COPD exacerbation, substance abuse Patient was acid repeated October 27 Tolerated extubation now on 1 L O2 Sepsis: Code(s): A41.9 - Sepsis, unspecified organism Status: Acute Assessment and Plan: Elevated lactic acidosis, hypotension,, respiratory failure, altered mental status -lactic acid trending down adequate IV fluid -according the son patient has not been taking adequate oral intake, liquids as well as solids for the last 2-3 weeks -could be hypovolemia secondary to decreased oral intake Received intravascular volume expansion with albumin continue cefepime and vancomycin (10/23) -continue doxycycline (10/25) -10/23: Preliminary blood cultures are negative 10/24/2024: Echocardiogram Summary 1. Complete two-dimensional, color flow and Doppler transthoracic echocardiogram is performed. 2. There is normal biventricular size and systolic function. 3. There is no significant valvular disease. 4. The atrial septum appears aneurysmal however there is no [id number] shunt by agitated saline study. Patient finished treatment of cefepime and Flagyl, continued doxycycline 100 mg b.i.d IV till Oct 30 per ID pharmacist Aspiration pneumonia: Code(s): J69.0 - Pneumonitis due to inhalation of food and vomit Status: Acute Assessment and Plan: Pt had emesis at home, possible aspiration pneumonitis/pneumonia 10/25: CXR: Worsening central congestive change and patchy bilateral airspace disease. Correlate for worsening pulmonary edema versus pneumonia antibiotics as above. Finished antibiotics treatment Positive urine drug screen: Code(s): R82.5 - Elevated urine levels of drugs, medicaments and biological substances Status: Acute Assessment and Plan: Urine drug screen was positive for cannabinoids and benzodiazepine Hypoglycemia: Code(s): E16.2 - Hypoglycemia, unspecified Status: Acute Assessment and Plan: Patient has a history of type 2 diabetes, was hypoglycemic when EMS arrived, received dextrose -blood sugars have been stable -continue Accu-Cheks and sliding scale insulin SOLOMON on CKD Chronic kidney disease, stage 4 (severe): Code(s): N18.4 - Chronic kidney disease, stage 4 (severe) Status: Chronic Assessment and Plan: Acute on chronic kidney disease stage IV, creatinine was at baseline on admission, -patient has been adequately fluid-resuscitated, added albumin for further intravascular volume repletion -10/25: Elevated creatinine, patient also received contrast on admission, could be related to contrast induced nephropathy, sepsis -10/25: Renal ultrasound showed bilateral medical renal disease, bilateral renal cysts, no hydronephrosis or stones. -urine lytes was not prerenal, negative urine eosinophils, CK levels 289 appreciate Nephrology evaluation and recommendations Kidney function continued to improve Consult grades 1 6 tutor for evaluation treatment HTN (hypertension): Code(s): I10 - Essential (primary) hypertension Status: Acute Assessment and Plan: History of essential hypertension, metoprolol at half the dose that she takes at home -p.r.n. hydralazine Diabetes: Code(s): E11.9 - Type 2 diabetes mellitus without complications Status: Chronic Assessment and Plan: Accu-Cheks and sliding scale insulin Plan DVT prophylaxis: SCDs, hold chemoprophylaxis due to coffee-ground drainage in the OG tube, anemia Stress ulcer prophylaxis: Protonix IV q.12 hours Nutrition: All in tube feeds for possible extubation will add p.r.n. MiraLax and senna S Consult PT OT cervical for evaluation and assisting placement. Patient has physical decondition due to comorbidities is aggravated bed recent acute illness. Patient will be discharged to custodial today Time Spent with Patient Time attestation: Total time spent providing and/or coordinating discharge services: Exam Narrative: GENERAL: Ill-appearing in no acute distress. Well-nourished. - EYES: EOMI. Anicteric. - HENT: Moist mucous membranes. - LUNGS: Coarse breath sound bilaterally, no wheezing, rhonchi, or rales. - CARDIOVASCULAR: Regular rate and rhythm. No murmur. No JVD. - ABDOMEN: Soft, non-tender and non-distended. No palpable masses. - EXTREMITIES: No edema. Peripheral pulses 2+. Non-tender. - NEUROLOGIC: No focal neurological deficits. CN II-XII grossly intact. General weakness - PSYCHIATRIC: Awake, Alert and oriented x 3. Appropriate mood and affect. - SKIN: No rashes or lesions. Warm. - LYMPH: No cervical lymphadenopathy. DS: Data Data Completed and Pending Labs on day of discharge: Labs from last 24 hours 11/01/24 05:46 WBC 8.6 RBC 2.74 L Hgb 8.4 L Hct 26.1 L MCV 95.3 MCH 30.7 MCHC 32.2 RDW 13.7 Plt Count 202 MPV 11.2 H Immature Gran % (Auto) 2.2 H Neut % (Auto) 65.8 Lymph % (Auto) 21.1 [place] % (Auto) 8.0 Eos % (Auto) 2.3 Baso % (Auto) 0.6 Lymph # (Auto) 1.81 [place] # (Auto) 0.7 H Eos # (Auto) 0.2 Baso # (Auto) 0.1 Abs Immat Gran (auto) 0.19 H Absolute Neuts (auto) 5.7 Absolute Nucleated RBC 0.000 Nucleated RBC % 0.0 Sodium 140 Potassium 3.2 L Chloride 104 Carbon Dioxide 27 Anion Gap 9 BUN 65 H Creatinine 2.17 H Estim Creat Clear Calc 16 Estimated GFR 22 L Glucose 96 Calcium 9.1 Phosphorus 3.8 Albumin 3.5 Discharge Plan Discharge Attending physician on discharge: Percy Paredes Consulting providers: Max Sánchez; Aissatou Wiseman Discharging Clinician: Percy Paredes Anticipated Discharge Date/Time: 11/01/24 10:40 Patient Disposition: SNF Activity: as tolerated Diet: as tolerated Patient Instructions: Enoxaparin (By injection), Heart Failure (DC), Removal of a Central Line, PICC, or Midline Catheter (DC) Patient Language: Malian Stand Alone Forms: General Discharge Information Follow-up/Referrals: Kev,Clayton Paniagua MD [Primary Care Provider] - (See primary care doctor in 1 week) Young Juraez MD [Physician] - Call for Appointment Discharge Medications: New sodium bicarbonate 650 mg Tablet 650 mg PO BIDPC Qty: 60 0RF pantoprazole 40 mg Tablet,Delayed Release (Dr/Ec) 40 mg PO DAILY Qty: 30 0RF Continued atorvastatin 40 mg tablet 40 mg PO DAILY metoprolol tartrate 100 mg tablet 100 mg PO BID clopidogrel 75 mg tablet 75 mg PO DAILY escitalopram oxalate 10 mg tablet 10 mg PO DAILY nifedipine 90 mg tablet extended release 90 mg PO DAILY Qty: 90 3RF Discontinued Jardiance 10 mg tablet 10 mg PO DAILY Qty: 30 12RF furosemide 40 mg tablet 40 mg PO BID Date of admission: 10/23/24 22:47 Primary Care Provider: Kev,Clayton Paniagua Admitting Provider: Caterina Prieto Attending physician on admission: Caterina Prieto Condition: Serious
== END 2024-11-01 13:58 | DRG 871 ==
LOC: ANHED 22:33 → ANHICU 23:03 → ANH2MED 11-01 10:40 → ANHICU 11-02 09:29
PROVIDERS: Internal Medicine; Internal Medicine Nephrology; Admitting Provider General Practice; Emergency Provider Student in an Organized Health Care Education/Training Program; PCP Internal Medicine; Visit Provider Hospitalist
DX: A41.9 Sepsis, unspecified organism (principal); J69.0 Pneumonitis due to inhalation of food and vomit; J96.01 Acute respiratory failure with hypoxia; N18.4 Chronic kidney disease, stage 4 (severe); N17.9 Acute kidney failure, unspecified; J44.1 Chronic obstructive pulmonary disease with (acute) exacerbation; I12.9 Hypertensive chronic kidney disease with stage 1 through stage 4 chronic kidney disease, or unspecified chronic kidney disease; E11.22 Type 2 diabetes mellitus with diabetic chronic kidney disease; I69.398 Other sequelae of cerebral infarction; R65.20 Severe sepsis without septic shock; R26.89 Other abnormalities of gait and mobility; F03.90 Unspecified dementia, unspecified severity, without behavioral disturbance, psychotic disturbance, mood disturbance, and anxiety; E11.649 Type 2 diabetes mellitus with hypoglycemia without coma; E78.00 Pure hypercholesterolemia, unspecified; G47.33 Obstructive sleep apnea (adult) (pediatric); E21.1 Secondary hyperparathyroidism, not elsewhere classified; Z20.822 Contact with and (suspected) exposure to COVID-19; F12.929 Cannabis use, unspecified with intoxication, unspecified
CPT/HCPCS: 31500; 36415; 36569; 36600; 70450; 70551; 71045; 71275; 74174; 76775; 80053; 80069; 80143; 80179; 80202; 80307; 81001; 81050; 82375; 82436; 82550; 82570; 82805; 82948; 83050; 83605; 83735; 83880; 84100; 84133; 84145; 84156; 84300; 84484; 84540; 85018; 85025; 85610; 85730; 85999; 87040; 87637; 87641; 92610; 93005; 93306; 94002; 94003; 94640; 96361; 96365; 97110; 97116; 97161; 97165; 97530; 99291; A9270; C1751; J0360; J0692; J1650; J1836; J1940; J2003; J2250; J2405; J2470; J2997; J3010; J3370; J7030; J7120; P9047; Q9967

== ENCOUNTER 2024-11-13 12:04 | Inpatient (IN) | payer MEDICARE, SELFPAY ==
[2024-11-13] VITALS (13 sets, daily range): BP systolic 131–170; BP diastolic 46–96; PULSE 60–86; RESP 15–21; TEMP 36.6–36.7; O2SAT 95–98; BMI 24.5
--- NOTE | ~2024-11-13 | XR_ITS ---
CHEST RADIOGRAPH CLINICAL HISTORY: COPD . COMPARISON: 10/28/2024 TECHNIQUE: Single portable view of the chest. FINDINGS The cardiomediastinal silhouette is enlarged, unchanged. Increased interstitial markings are identified bilaterally, findings suggesting moderate pulmonary va scular congestion. The remainder of the lungs are clear. IMPRESSION: Moderate pulmonary vascular congestion without focal infiltrate Reviewed, dictated and finalized at location A. CON[facility]OR [facility]ER
[2024-11-13] MEDS: DEXTROSE 50% 25 GM/50 ML SYRINGE IV PUSH ×2 (12:10→14:34)
--- NOTE | 2024-11-13 12:14 | ECG_ITS ---
Test Date: 2024-11-13 14:41:39 Measurements Intervals [place] Rate: 66 P: 56 GA: 141 QRS: 20 QRSD: 106 T: 64 QT: 432 QTc: 453 Interpretive Statements SINUS RHYTHM NONSPECIFIC ST AND T-WAVE ABNORMALITY Compared to ECG 10/23/2024 19:55:23 NO SIGNIFICANT CHANGES Electronically Signed On 11-14-2024 13:08:59 BUSINESS SERVICES ADMINISTRATOR by Gretel Hope M.D.
[2024-11-13 12:32] LABS: Glucose Point of Care 165 mg/dl (65-105)
[2024-11-13 12:55] LABS: Basophils Absolute Auto 0.1 K/mm3 (0.0-0.1); Basophils Percent Auto 0.6 % (0.2-1.2); Eosinophils Absolute Auto 0.2 K/mm3 (0-0.3); Eosinophils Percent Auto 2.2 % (0-4.4); Hematocrit 29.4 % (37.0-47.0); Hemoglobin 9.3 g/dL (12.0-15.0); Immature Granulocyte Absolute 0.04 K/mm3 (0.00-0.031); Immature Granulocyte Percent A 0.4 % (0-0.5); Lymphocytes Absolute Auto 1.06 K/mm3 (0.9-3.2); Lymphocytes Percent Auto 11.9 % (18.3-44.2); Mean Corpuscular HGB Conc 31.6 g/dl (32-36); Mean Corpuscular Hemoglobin 31.3 pg (26-34); Mean Platelet Volume 11.3 fl (7.4-10.4); Monocytes Absolute Auto 0.7 K/mm3 (0.1-0.6); Monocytes Percent Auto 7.9 % (2.6-8.5); Neutrophils Absolute Auto 6.8 K/mm3 (1.3-6.7); Platelet Count Result 330 k/mm3 (150-375); Red Blood Count 2.97 M/mm3 (4.2-5.4); Red Cell Distribution Width 14.6 % (11.5-14.5); White Blood Count 8.9 K/mm3 (4.5-10.0)
--- NOTE | 2024-11-13 12:59 | ED_ITS ---
HPI - Altered Mental Status General Chief Complaint: Altered Mental Status Stated Complaint: weak, lethargic Time Seen by Provider: 11/13/24 12:14 History of Present Illness HPI narrative: Patient presenting here after going to doctor's appointment today and was found to be lethargic, blood sugar checked was found be 24, immediately sent to the emergency room. Per family, she has not been eating or drinking very much, and had a similar presentation a few weeks ago for which she was admitted for hypoglycemia and pneumonia Related Data Home Medications ?Medication ?Instructions ?Recorded ?Confirmed ?Last Taken ?Type atorvastatin 40 mg tablet 40 mg PO DAILY 09/25/20 11/01/24 1 Day Ago History ~01/21/24 hydralazine 25 mg tablet 25 mg PO TID 11/13/24 11/13/24 Unknown History Allergies Allergy/AdvReac Type Severity Reaction Status Date / Time atorvastatin (From Lipitor) Allergy Mild myalgia Verified 11/13/24 07:54 fluvastatin (From Lescol) Allergy Mild Unknown Verified 11/13/24 07:54 pravastatin (From Pravachol) Allergy Mild Unknown Verified 11/13/24 07:54 rosuvastatin (From Crestor) Allergy Mild myalgia Verified 11/13/24 07:54 Penicillins Allergy Unknown Unknown Verified 11/13/24 07:54 iodine AdvReac Intermediate Unknown Verified 11/13/24 07:54 Review of Systems 2 Review of Systems: All systems reviewed & are unremarkable except as noted in HPI and below PMFSH Past Medical History Medical History Anemia Unintentional weight loss Osteitis pubis Asthma-COPD overlap syndrome Hemoglobin A1c less than 7.0% per pt A1c was 6.7 around Sep 2020 Adenomatous colon polyp Lower abdominal pain Epigastric pain Sleep apnea, unspecified Essential hypertension Type 2 diabetes mellitus Congestive heart failure Ventral incisional hernia Disorder of vitamin B12 Edema Pure hypercholesterolemia Allergic rhinitis GERD (gastroesophageal reflux disease) Asthma Indigestion Contusion of lower leg Gout Fracture of humerus Disorder of rotator cuff Brachial neuritis Neck pain Pain, joint, ankle and foot Shoulder joint pain 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 Generalized osteoarthritis of multiple sites Seronegative spondyloarthropathy (~2016) Surgical History Surgical History History of left cataract extraction History of right cataract extraction Family History Family History Mother Hypertension Unknown Family history of stroke Other Diabetes mellitus Family history of allergic disorder Family history of cardiovascular disease Family history of sleep apnea Social History Social History Smoking status: Never smoker Second hand tobacco smoke exposure: No (PREVIOUSLY, STOPPED SMOKING YEARS AGO) Alcohol intake: never Substance use: never Substance use type: does not use Do You Feel Safe in your Home?: Yes Lack of Transportation: No Lack of Food: Never True Current Housing: I Have Housing Concerned About Future Housing: No Difficulty Paying Gas/Electric Bills: No Difficulty Paying for Meds: No Currently Unemployed: No Education: Don't Know Difficulty w/ Childcare or Family Care: No Living arrangements: with family Occupation/Education: retired Gender identity (if verbalized by the patient): Female Sexual Orientation (if Verbalized by the Patient): Straight or Heterosexual Spiritual care concerns: No Exam 2 Narrative: EXAMINATION OF ORGAN SYSTEMS/BODY AREAS: Constitutional: Vital signs per nursing GENERAL:[No acute distress, non-toxic appearing.] HEAD: Normal with no signs of head trauma. EYES: EOMI, conjunctiva normal ENT: Hearing grossly intact LUNGS: Nonlabored breathing. HEART: [Regular rate and rhythm] ABD: [Soft], [nontender to palpation] EXT: Normal range of motion SKIN: [No rashes or lesions.] NEURO: [Alert and oriented x2. No gross focal sensory or strength deficits.] Answering questions and following commands appropriately PSYCH: Normal affect Course Vital Signs Vital signs: Vital Signs Pulse Rate 79 11/13/24 12:10 Respiratory Rate 17 11/13/24 12:10 Blood Pressure 137/51 L 11/13/24 12:10 Pulse Oximetry 95 11/13/24 12:10 Oxygen Delivery Room Air 11/13/24 12:10 Pulse Rate 65 11/13/24 14:27 Respiratory Rate 17 11/13/24 12:10 Blood Pressure 137/51 L 11/13/24 12:10 Pulse Oximetry 95 11/13/24 12:10 Oxygen Delivery Room Air 11/13/24 12:30 MDM - Altered Mental Status MDM Narrative Medical decision making narrative: 1) Differential diagnosis: Hyperglycemia, infection, malnutrition 2) Comorbidities: Diabetes, hypertension 3) External notes reviewed: PCP/nephrology note 4) History sources independently obtained from: Son at bedside 5) Discussion of management with: hospitalist 6) Independent interpretation of: EKG showing NSR rate 66, nl axis, nl IN, QRS, QTc, slight flattened T waves but no significant JOSÉ MIGUEL or D or signs of acute arrhythmia/ischemia CXR w some PVR no obvious consolidation 7) Diagnostic tests or therapies considered but not ordered: 8) Social determinants of health: 9) Shared decision making: Patient presents here after being found unresponsive while at doctor's office, going to be hypoglycemic with blood sugar 21, medially given amp of D50 with improvement in her condition, she is now alert, answering questions appropriately, denies any complaints, she is back to her baseline, and per son at bedside, she has not been eating or drinking much, and is already off of all of her diabetes medications, she has also been losing weight. Discussed with son that plan was to check her labs here, keep an eye on her for the next few hours while checking blood sugars indication that does not drop back down, and if it maintains itself and she is able to eat and drink here normally, she would go home with instructions for frequent rechecks of blood sugar, son states that he feels this definitely doable, and he will be supplementing her diet. // Unfortunately recheck glucose low again; I did feel she needed to be admitted w/ dextrose supp and dietary consult and freq glucose checks. Pt son agreeable; hospitalist agreeable. Lab Data 11/13/24 12:44 11/13/24 12:44 Labs: Lab Results 11/13/24 11/13/24 11/13/24 Range/Units 12:27 12:44 14:31 WBC 8.9 (4.5-10.0) K/mm3 RBC 2.97 L (4.2-5.4) M/mm3 Hgb 9.3 L (12.0-15.0) g/dL Hct 29.4 L (37.0-47.0) % MCV 99.0 (80-100) fl MCH 31.3 (26-34) pg MCHC 31.6 L (32-36) g/dl RDW 14.6 H (11.5-14.5) % Plt Count 330 (150-375) k/mm3 MPV 11.3 H (7.4-10.4) fl Immature Gran % (Auto) 0.4 (0-0.5) % Neut % (Auto) 77.0 H (45.5-73.1) % Lymph % (Auto) 11.9 L (18.3-44.2) % [place] % (Auto) 7.9 (2.6-8.5) % Eos % (Auto) 2.2 (0-4.4) % Baso % (Auto) 0.6 (0.2-1.2) % Lymph # (Auto) 1.06 (0.9-3.2) K/mm3 [place] # (Auto) 0.7 H (0.1-0.6) K/mm3 Eos # (Auto) 0.2 (0-0.3) K/mm3 Baso # (Auto) 0.1 (0.0-0.1) K/mm3 Abs Immat Gran (auto) 0.04 H (0.00-0.031) K/mm3 Absolute Neuts (auto) 6.8 H (1.3-6.7) K/mm3 Absolute Nucleated RBC 0.000 (0.0-0.012) K/mm3 Nucleated RBC % 0.0 (0.0-0.2) % Sodium 141 (137-145) mmol/L Potassium 3.6 (3.4-5.0) mmol/L Chloride 102 (98-107) mmol/L Carbon Dioxide 26 (22-30) mmol/L Anion Gap 13 H (4-12) mmol/L BUN 49 H (7-17) mg/dL Creatinine 2.22 H (0.7-1.0) mg/dL Estim Creat Clear Calc Not Reportable Estimated GFR 21 L (59 - ) Glucose 123 H (65-110) mg/dL POC Capillary Glucose 165 H 40 L* (65-105) mg/dl Calcium 9.0 (8.4-10.2) mg/dL Total Bilirubin 0.4 (0.2-1.3) mg/dL AST 33 (14-36) U/L ALT 23 (6-35) U/L Alkaline Phosphatase 79 (38-126) U/L Troponin I < 0.012 (0.000-0.034) ng/mL Total Protein 8.0 (6.3-8.2) g/dL Albumin 4.1 (3.5-5.1) g/dL Ethyl Alcohol < 10 (<10) mg/dL Influenza A (RT-PCR) Influenza B (RT-PCR) RSV (RT-PCR) SARS-CoV-2 RNA (RT-PCR) 11/13/24 11/13/24 Range/Units 15:46 16:00 WBC (4.5-10.0) K/mm3 RBC (4.2-5.4) M/mm3 Hgb (12.0-15.0) g/dL Hct (37.0-47.0) % MCV (80-100) fl MCH (26-34) pg MCHC (32-36) g/dl RDW (11.5-14.5) % Plt Count (150-375) k/mm3 MPV (7.4-10.4) fl Immature Gran % (Auto) (0-0.5) % Neut % (Auto) (45.5-73.1) % Lymph % (Auto) (18.3-44.2) % [place] % (Auto) (2.6-8.5) % Eos % (Auto) (0-4.4) % Baso % (Auto) (0.2-1.2) % Lymph # (Auto) (0.9-3.2) K/mm3 [place] # (Auto) (0.1-0.6) K/mm3 Eos # (Auto) (0-0.3) K/mm3 Baso # (Auto) (0.0-0.1) K/mm3 Abs Immat Gran (auto) (0.00-0.031) K/mm3 Absolute Neuts (auto) (1.3-6.7) K/mm3 Absolute Nucleated RBC (0.0-0.012) K/mm3 Nucleated RBC % (0.0-0.2) % Sodium (137-145) mmol/L Potassium (3.4-5.0) mmol/L Chloride (98-107) mmol/L Carbon Dioxide (22-30) mmol/L Anion Gap (4-12) mmol/L BUN (7-17) mg/dL Creatinine (0.7-1.0) mg/dL Estim Creat Clear Calc Estimated GFR (59 - ) Glucose (65-110) mg/dL POC Capillary Glucose Pending (65-105) mg/dl Calcium (8.4-10.2) mg/dL Total Bilirubin (0.2-1.3) mg/dL AST (14-36) U/L ALT (6-35) U/L Alkaline Phosphatase (38-126) U/L Troponin I (0.000-0.034) ng/mL Total Protein (6.3-8.2) g/dL Albumin (3.5-5.1) g/dL Ethyl Alcohol (<10) mg/dL Influenza A (RT-PCR) Pending Influenza B (RT-PCR) Pending RSV (RT-PCR) Pending SARS-CoV-2 RNA (RT-PCR) Pending Critical Care Time Critical Care Time Critical Care Time: Yes Total Critical Care Time: 31 Discharge Plan Discharge Clinical Impression: Hypoglycemia Patient Disposition: Still a Patient Condition: Serious Patient Language: Thai Prescriptions: No Action atorvastatin 40 mg tablet 40 mg PO DAILY hydralazine 25 mg tablet 25 mg PO TID acetaminophen 325 mg Tablet 325 mg PO Q4H PRN (Reason: Mild Pain (1-3) Or Fever) Qty: 90 0RF furosemide 40 mg Tablet 40 mg PO DAILY Qty: 30 0RF hydroxyzine HCl 25 mg Tablet 25 mg PO Q8H PRN (Reason: Anxiety) Qty: 30 0RF nifedipine 90 mg tablet extended release 90 mg PO DAILY Qty: 90 3RF metoprolol tartrate 100 mg tablet 100 mg PO BID Qty: 60 0RF clopidogrel 75 mg tablet 75 mg PO DAILY Qty: 30 0RF sodium bicarbonate 650 mg Tablet 650 mg PO BIDPC Qty: 60 0RF pantoprazole 40 mg Tablet,Delayed Release (Dr/Ec) 40 mg PO DAILY Qty: 30 0RF escitalopram oxalate 10 mg tablet 10 mg PO DAILY Qty: 60 0RF Follow-up/Referrals: Kev,Clayton Paniagua MD [Primary Care Provider] -
[2024-11-13 13:04] LABS: Alanine Aminotransferase 23 U/L (6-35); Albumin Level 4.1 g/dL (3.5-5.1); Alkaline Phosphatase 79 U/L (38-126); Anion Gap 13 mmol/L (4-12); Aspartate Amino Transferase 33 U/L (14-36); Bilirubin,Total 0.4 mg/dL (0.2-1.3); Blood Urea Nitrogen 49 mg/dL (7-17); Carbon Dioxide 26 mmol/L (22-30); Chloride 102 mmol/L (98-107); Estimated Glomerular Filt Rate 21; Glucose 123 mg/dL (65-110); Potassium 3.6 mmol/L (3.4-5.0); Sodium 141 mmol/L (137-145)
[2024-11-13 13:05] LABS: Ethanol < 10 mg/dL (<10)
[2024-11-13 13:14] LABS: Troponin I < 0.012 ng/mL (0.000-0.034)
--- OUTSIDE RECORDS SUMMARY | 2024-11-13 13:50 | XMS_ITS | Continuity of Care Document ---
Author Organization [facility] Address [address] [place] [address] Dr Jiménez [address] [place] [phone] Phone Care Team Providers Care Lunch Counter Manager Name Role Phone Marimar Bourne Unavailable Unavailable Procedures Procedure Date Office/outpatient Visit, Est Dilated Retinal Exam W Interpretation No Evidence Of Retinopathy In Prior Year TF Polycarb Sphcyl [place] To +/-4d .12-2d TF Polycarb Sphcyl [place] To +/-4d .12-2d Progressive Lens, Polycarb Tint [...] Copied on Encounter Office/outpat ient Visit, Est [facility], [address], [place], [place], [address], [place] tel:[phone] [facility] No Information 0 Tayla Colorado [address] , [address], [place], [address], . tel:[phone] [facility], [address], [place], [place], [address], [place] tel:[phone] [facility] No Information 0 [facility] . [address] [facility], [address], [place], [place], [address], [place]. tel:[phone] Referring Provider: Marimar Garcia, [address], [place], [address]. tel:[phone] [facility], [address], [place], [place], [address], [place] tel:[phone] [facility] No Information 0 Tayla Colorado [address] , [address], [place], [address], [place]. tel:[phone] [facility], [address], [place], [place], [address], [place] tel:[phone] [facility] No Information 9 Tayla Colorado [address] , [address], [place], [facility], [place]. tel:[phone] [facility], [address] [place] [address] [address], [place], [place], [address], [place] tel:[phone] [facility] No Information Dec-1 0-200 9 Oreilly OD Fredy. [address] , [address], [place], [facility], [place]. tel:[phone] [facility], [address] [place] [address] [address], [place], [place], [address], [place] tel:[phone] [facility] No Information Dec-0 9-200 9 Tayla Minaya. [address] , [address], [place], [facility], [place]. tel:[phone] [facility], [address] [place] [address] [address], [place], [place], [address], [place] tel:[phone] [facility] No Information Dec-0 1-200 9 Tayla Minaya. [address] , [address], [place], [facility], [place]. tel:[phone] Referring Provider: Marimar Garcia, [address], [place], [facility]. tel:[phone] [facility], [address] [place] [address] [address], [place], [place], [address], [place] tel:[phone] [facility] No Information Nov-1 0-200 9 Tayla Minaya. [address] , [address], [place], [facility], [place]. tel:[phone] [facility], [address] [place] [address] [address], [place], [place], [address], [place] tel:[phone] [facility] No Information Nov-0 5-200 9 Tayla Colorado [address] , [address], [place], [address], [place]. tel:[phone] [facility], [address], [place], [place], [address], [place] tel:[phone] [facility] No Information Nov-0 4-200 9 Tayla Minaya. [address], [address], [place], [address], [place]. tel:[phone] [facility], [address], [place], [place], [address], [place] tel:[phone] [facility] No Information Oct-2 7-200 9 Tayla Minaya. [address] , [address], [place], [facility], [place]. tel:[phone] Referring Provider: Marimar Garcia, [address], [place], [facility]. tel:[phone] Office/outpat ient Visit, [facility], [address], [place], [place], [address], [place] tel:[phone] [facility] No Information Freddie-0 7-200 9 Tayla Minaya. [address] , [address], [place], [address], [place]. tel:[phone] Referring Provider: Marimar Garcia, [address], [place], [facility]. tel:[phone] [facility], [address], [place], [place], [address], [place] tel:[phone] [facility] No Information Sep-1 7-200 8 [facility] . [address] [facility], [address], [place], [place], [address], [place]. tel:[phone] Consulting Provider: Chantelle De Sozua, [address] [facility], [place], [address]. tel:[phone] [facility], [address], [place], [place], [address], [place] tel:[phone] [facility] No Information 8 Tayla Minaya. [address], [place], [address], [place]. tel:[phone] [facility], [address], [place], [place], [address], [place] tel:[phone] [facility] No Information 200 8 [facility] . [address] [facility], [address], [place], [place], [address], [place]. tel:[phone] Consulting Provider: Angeles Oliveros, [address] [place] [address], [address]. tel:[phone] [facility], [address], [place], [place], [address], [place] tel:[phone] [facility] No Information 9-200 7 [facility] . [address] [facility], [address], [place], [place], [address], [place]. tel:[phone] Consulting Provider: Angeles Oliveros, [address] [place] [address], [address]. tel:[phone] [facility], [address], [place], [place], [address], [place] tel:[phone] [facility] No Information 4-200 7 [facility] . [address] [facility], [address], [place], [address], [place]. tel:[phone] Referring Provider: Marimar Garcia, [address], [place], [address]. tel:[phone] g Provider: Chantelle De Souza, [address] [place], [address]. tel:[phone] [facility], [address], [place], [place], [address], [place] tel:[phone] [facility] No Information 0-200 7 Bourne Marimar. [address] , [address], [place], [address], [place]. tel:[phone] Family History Family Member Type Diagnosis Age At Onset No Information Payers Payer name Insurance type Covered constitution party ID Authoriza tion(s) [place] [id number] [facility] CI [id number] Social History Type Description Quantity Date Captured [...]
--- OUTSIDE RECORDS SUMMARY | 2024-11-13 13:51 | XMS_ITS | Encounter Summary ---
Author Organization [facility] Address [address] [place] [address] Phone Care Team Providers Care Sales Office Coordinator Name Role Phone Clayton Angulo MD Primary Care Provider [phone] Reason for Visit * Reason Comments Med Refill Encounter Details Date Type Department Care Team (Late st Contact Info) Description 07/25/2019 Refill [facility] Nephrology and Hypertension [facility], [address] [address] Aissatou Wiseman MD [address] [facility], [address] [place] [address] Social History Tobacco Use Types Packs/Day Years [...] on filedocumented in this encounter Care Teams Sales Office Coordinator Relationship Specialty Start Date End Date Clayton Angulo MD [address] [facility] [place] [address] PCP - General Internal Medicine 02/26/19 documented as of this encounter
--- OUTSIDE RECORDS SUMMARY | 2024-11-13 13:51 | XMS_ITS | CONTINUITY OF CARE DOCUMENT ---
Author Name madonna peacock Address Unknown Organization [facility] Address [address] [place] [address] Phone [phone] Care Team Providers Care Conference Planner Name Role Phone Jaime WILSON, Fortino Unavailable Fortino Sandoval MD Unavailable [phone] MARGOTH WINTER MD Unavailable INSURANCE PROVIDERS Payer name Policy type / Coverage type [place] [employer]at ID [employer] insurance company [id number] [place] [employer] Medicare [id number]
--- OUTSIDE RECORDS SUMMARY | 2024-11-13 13:51 | XMS_ITS | Clinical Summary ---
Author Organization [facility] Address [facility] [place] [address] Care Team Providers Care Freelance Photographer Name Role Phone Unavailable Primary Care Provider [...] Due Date Last Done Comments PHQ-2 (Physician [facility]) 1952 DTaP, Tdap and Td Vaccines ( 1 - Tdap) 12/01/1958 Zoster Vaccines (1 of 2) 12/01/1989 Annual Medicare Wellness Visit 12/01/2004 Dexa Scan (General) 12/01/2004 Pneumococcal Vaccine: 65+ Ye ars (1 of 1 - PCV) 12/01/2004 RSV Immunization or 60+ Years (1 - 1-dose 75+ series) 12/01/2014 COVID-19 Vaccine (2023-2 5 season) 2024 Influenza Adult (#1) 2024 PHQ-2 (Physician [facility]) 09/12/2024 Meningococcal B Vaccine Aged Out No [...]
--- OUTSIDE RECORDS SUMMARY | 2024-11-13 13:51 | XMS_ITS | Continuity of Care Document ---
Author Name [facility] Organization [facility] Care Team Providers Care Reduction Furnace Operator Name Role Phone [facility] Unavailable Unavailable Problems Combined list of problems from Department of [facility] and [facility] facilities. It does not include entries that were removed or entered in error. Problem Status Onset Date Problem Type Date of Resolution Comments Source Diagnosis: ICD-10-CM Z74.1 Need for assistance with personal care Active Diagnosis [facility] Diagnosis: ICD-10-CM Z65.9 Problem related to unspecified psychosocial circumstances Active Diagnosis [facility] Diagnosis: ICD-10-CM Z63.79 Other stressful life events affecting family and household Active Diagnosis [facility] Diagnosis: ICD-10-CM Z63.6 Dependent relative needing care at home Active Diagnosis [facility] Encounters Combined list of: 1) Encounters from Department of [facility] facilities going backup to the last 18 months, not all [facility] inpatient encounters are included; 2) Encounters from the [facility] facilities going backup to 280 months. Location Location Details Encounter Type Encounter Number Reason For Visit Attending Provider ADM Date DC Date Status Disposition Source [facility] Outpatient Encounter [id number] 08/18 [facility] ASSMT/REAS SESSMENT [id number] Diagnos is: ICD-10- CM Z63.6 Depende nt relativ e needing care at home RANI WEBB 08/22 [facility] Outpatient Encounter [id number] 12/22 [facility] PROGRAM INTAKE ASSESSMENT [id number] Diagnos is: ICD-10- CM Z74.1 Need for assista nce with persona misa FULLERURVASHI DINO 01/02 [facility] HC PRO PHONE CALL 11-20 MIN [id number] Diagnos is: ICD-10- CM Z63.79 Other stressf ul life events affecti ng family and househo ld JAMES LOVETT 01/08 [facility] Outpatient Encounter [id number] 01/18 [facility] PROGRAM INTAKE ASSESSMENT [id number] Diagnos is: ICD-10- CM Z74.1 Need for assista nce with personfranklyn patel URVASHI FULLER DINO 05/04 [facility] Outpatient Encounter [id number] JOHN,CAR A A 07/25 [facility] ASSMT/REAS SESSMENT [id number] Diagnos is: ICD-10- CM Z65.9 Problem related to unspeci fied psychos ocial circums tances RANI WEBB CY L 08/20 [facility] PROGRAM INTAKE ASSESSMENT [id number] Diagnos is: ICD-10- CM Z74.1 Need for assista nce with persona misa URVASHI Kelly DINO 09/24 [facility] Outpatient Encounter [id number] RANI WEBB CY L 10/08 [facility]
--- OUTSIDE RECORDS SUMMARY | 2024-11-13 13:51 | XMS_ITS | Patient Health Summary ---
Author Organization [facility] Address [address] [facility] [place] [address] Care Team Providers Care Supervisor Electronic Testing Name Role Phone Clayton Angulo MD Primary Care Provider [phone] Note from [facility],non-owned Affiliates and Associated Physician Practices is amultiple site organization consisting of ambulatory clinics and hospital sitesin [place], [place], [place] and [place]. This disclosure is being madepursuant to the Care Everywhere program and may not contain all information available regarding this patient. Last updated 18.[facility] Immunizations * INFLUENZA VACCINE, HIGH-DOSE, QUADR. (FLUZONE HIGH-DOSE QUADRIVALENT; 65Y+), 0.7 ML (HD-IIV4)(Given 06/19/2020) Social History Tobacco Use Types Packs/Day Years Used Date Smoking Tobacco: Never Assessed Sex and Gender Information Value Date Recorded Sex Assigned at Not on file Gender Identity Not on file Sexual Orientation Not on file Care Teams Supervisor Electronic Testing Relationship Specialty Start Date End Date Clayton Angulo MD [address] [place] [phone] PCP - General 11/28/20
--- OUTSIDE RECORDS SUMMARY | 2024-11-13 13:51 | XMS_ITS | Encounter Summary ---
Author Organization [facility] Address [address] [place] [address] Phone Care Team Providers Care Automotive Electrician Helper Name Role Phone Clayton Angulo MD Primary Care Provider Reason for Visit * Reason Comments Med Refill Encounter Details Date Type Department Care Team (Late st Contact Info) Description 04/24/2019 Refill [facility] Nephrology and Hypertension [address] [facility], [address] license of [facility] [place] [address] Young Juarez MD [address] [facility], [address] [place] [address] Social History Tobacco Use Types Packs/Day Years [...] on filedocumented in this encounter Care Teams Automotive Electrician Helper Relationship Specialty Start Date End Date Clayton Angulo MD [address] [phone] PCP - General Internal Medicine 02/26/19 documented as of this encounter
--- OUTSIDE RECORDS SUMMARY | 2024-11-13 13:51 | XMS_ITS | Data Portability ---
Author Organization [employer], Main Office Address [address] [place] [address] Care Team Providers Care Medical Appointment Clerk Name Role Phone MARGOTH ANGULO Primary Care Provider MARGOTH ANGULO Referring Provider Assessment Encounter Date Assessment Date Assessment LastModified by Organization Details LastModified Time 01/26/2024 01/26/2024 I have reconciled the patient's medications post their discharge from inpatient facility. [email or web address] Not available 01/26/2024 11:25:14 Plan of Treatment Reminders Order Date Submit Date Provider Last Modified By Organization Details Last Modified Time Details Appointments None recorded. Lab vitamin B12, serum [facility] Outpatient Lab, [address] [place], [address], 4 16:11:52 cerulopla smin, serum [facility] Out[facility] Lab, [address] [place], [address], 4 08:17:41 RPR (rapid plasma reagin), serum [facility], [address] [place], [address], 4 12:52:50 vitamin B12, serum 024 [facility], [address] [place], [address], 4 20:10:10 uric acid, serum or plasma [facility], [address] [place], [address], 4 09:22:26 HbA1c (hemoglob in A1c), blood [facility], [address] [place], [address], 4 09:22:32 magnesium , serum or plasma [facility], [address] [place], [address], 4 09:22:25 vitamin B12, serum [facility], [address] [place], [address], 4 09:22:30 CBC w/ auto diff 024 [facility], [address] [place], [address], 4 09:22:28 CMP, serum or plasma 024 [facility], [address] [place], [address], 4 09:22:27 lipid panel, serum 024 [facility], [address] [place], [address], 4 09:22:23 TSH, serum or plasma 024 [facility], [address] [place], [address], 4 09:22:31 T4, free, serum [facility], [address] [place], [address], 09:22:29 Referral None recorded. Procedures None recorded. Surgeries None recorded. Imaging None recorded. Medication Orders Rexulti 0.25 mg tablet 024 [id number], [address] [facility], [place], [place], [id number], 12:13:05 Patient TargetsNo targets recorded. Patient Instructions Encounter Date Encounter Id Patient Instructions Last Modified By Organization Details Last Modified Time 11/04/2023 [id number] Ataxia and cervi carmen radiculopathy by history. Follow-up for hypertension-hyperl ipidemia- type 2 diabetes. Was in the emergency room has had a considerable amount of blood work performed. Will set up for an MRI of the cervical spine and brain without contrast to further assess the ataxia. Portions of the record may have been created with voice recognition software. Occasional wrong-word or mfovt-a-edob substitutions may have occurred due to the inherent limitations of voice recognition software. Read the chart carefully and recognize, using context, where substitutions have occurred. MRI of the brain and cervical spine without contrast for progressive ataxia. [email or web address] Not available 11/04/2023 12:07:01 01/12/2024 [id number] Memory impairmen t, CVA, hypertension, hyperlipidemia, type [...] with voice recognition software. Occasional wrong-word or iierx-u-jxrg substitutions may have occurred due to the inherent limitations of voice recognition software. Read the chart carefully and recognize, using context, where substitutions have occurred. [email or web address] Not available 01/12/2024 11:23:05 01/26/2024 [id number] Thank you for yo ur visit to [...] at home, please call us to discuss. [email or web address] Not available 01/26/2024 12:07:43 Homebound Status : {{Patient has an inability to leave the home without a taxing effort and assistance from another person Does not meet homebound status*}} Required Home Health Services: {{none* retirement, physical therapy, occupational therapy retirement, physical therapy retirement}} Durable Medical Equipment needed: {{cane walker walke [...] with voice recognition software. Occasional wrong-word or errgf-v-agbt substitutions may have occurred due to the inherent limitations of voice recognition software. Read the chart carefully and recognize, using context, where substitutions have occurred. Billing Guidelines CPT code 26302- Transitional Care Management services with moderate medical decision complexity (jqwa-nd-akqw visit within 14 days of discharge). CPT code 31577- Transitional Care Management services with high medical decision complexity (hbry-ah-nzgq visit within 7 days of discharge). [email or web address] Not available 01/26/2024 12:07:50 05/10/2024 [id number] Follow-up for hypertension, GERD, hyperlipidemia, type 2 [...] with voice recognition software. Occasional wrong-word or mzcbf-q-kzxl substitutions may have occurred due to the inherent limitations of voice recognition software. Read the chart carefully and recognize, using context, where substitutions have occurred. [email or web address] Not available 05/10/2024 11:19:11 08/07/2024 [id number] Follow-up for dementia, essential hypertension hyperlipidemia all [...] with voice recognition software. Occasional wrong-word or euvhc-k-pcdh substitutions may have occurred due to the inherent limitations of voice recognition software. Read the chart carefully and recognize, using context, where substitutions have occurred. Created: Margoth Angulo M.D. 08.07.2024 11:14 AM [email or web address] Not available 08/07/2024 12:14:10 Reason for Referral None Reported. Results Created Date Observation Date Name Description Value Unit Range Abnormal Flag Note LastModifiedBy Organization Detail LastModifiedTime 11/10/19 24 11/10/2023 CREAT INALEXI , I-STA T creatinine 2.5 mg/dL 0.6-1. 3 high Not Available [facility] (Lab) [address] [place], [address], 11/24/2023 18:20:09 01/12/20 24 01/13/2024 LIPID PANEL , STAND RADHA cholesterol, total 149 mg/dL <200 normal Not Available [address], [address], 01/13/2024 09:22:23 01/12/20 24 01/13/2024 LIPID PANEL , STAND RADHA HDL cholesterol 48 mg/dL > or = 50 low Not Available [address], [address], 01/13/2024 09:22:23 01/12/20 24 01/13/2024 LIPID PANEL , STAND RADHA triglyceride s 103 mg/dL <150 normal Not Available [address], [address], 01/13/2024 09:22:23 01/12/20 24 01/13/2024 LIPID PANEL , STAND RADHA LDL-choleste rol 81 mg/dL _(carmen c) normal Refer ence range : <100 Manjula able range <100 mg/dL for prima ry preve ntion ; <70 mg/dL for patie nts with CHD or diabe tic patie nts with > or = 2 CHD risk facto rs. LDL-C is now calcu lated using the [facility] calcu leslie n, which is a valid ated novel metho d marijai pratibha hutchins r accur acy than the Fried jacqueline equat ion in the estim ation of LDL-C . Juanis lopes SS et al. KYLAH. 2013; 310(1 9): 2061- 2068 (http ://ed ucati on.Qu [facility]. com/f aq/FA Q164) Not Available [address], [address], 01/13/2024 09:22:23 01/12/20 24 01/13/2024 LIPID PANEL , STAND RADHA chol/HDLC ratio 3.1 (calc ) <5.0 normal Not Available [address], [address], 01/13/2024 09:22:23 01/12/20 24 01/13/2024 LIPID PANEL , STAND RADHA non HDL cholesterol 101 mg/dL _(carmen c) <130 normal For patie nts with diabe carli plus 1 major ASCVD risk facto r, treat ing to a non-H DL-C goal of <100 mg/dL (LDL- C of <70 mg/dL ) is consi vanessad a thera peuti c optio n. Not Available [address], [address], 01/13/2024 09:22:23 01/12/20 24 01/13/2024 MAGNE SIUM magnesium 2.6 mg/dL 1.5-2. 5 high Not Available [address], [address], 01/13/2024 09:22:24 01/12/20 24 01/13/2024 URIC ACID uric acid 7.0 mg/dL 2.5-7. 0 normal Thera peuti c targe t for gout patie nts: <6.0 mg/dL Not Available [address], [address], 01/13/2024 09:22:25 01/12/20 24 01/13/2024 COMPR EHENS HARSHIL METAB OLIC PANEL glucose 98 mg/dL 65-99 normal Fasti ng refer ence inter tomeka Not Available [facility] [address] [place], [address], 01/13/2024 09:22:27 01/12/20 24 01/13/2024 COMPR EHENS HARSHIL METAB OLIC PANEL urea nitrogen (BUN) 58 mg/dL 7-25 high Not Available [address], [address], 01/13/2024 09:22:27 01/12/20 24 01/13/2024 COMPR EHENS HARSHIL METAB OLIC PANEL creatinine 2.50 mg/dL 0.60-0 .95 high Not Available [address], [address], 01/13/2024 09:22:27 01/12/20 24 01/13/2024 COMPR EHENS HARSHIL METAB OLIC PANEL eGFR 19 mL/mi n/1.7 3m2 > or = 60 low Not Available [address], [address], 01/13/2024 09:22:27 01/12/20 24 01/13/2024 COMPR EHENS HARSHIL METAB OLIC PANEL BUN/creatini ne ratio 23 (calc ) 6-22 high Not Available [address], [address], 01/13/2024 09:22:27 01/12/20 24 01/13/2024 COMPR EHENS HARSHIL METAB OLIC PANEL sodium 137 mmol/ L 135-14 6 normal Not Available [address], [address], 01/13/2024 09:22:27 01/12/20 24 01/13/2024 COMPR EHENS HARSHIL METAB OLIC PANEL potassium 6.1 mmol/ L 3.5-5. 3 high Not Available [address], [address], 01/13/2024 09:22:27 01/12/20 24 01/13/2024 COMPR EHENS HARSHIL METAB OLIC PANEL chloride 111 mmol/ L 98-110 high Not Available [facility] [address], [address], 01/13/2024 09:22:27 01/12/20 24 01/13/2024 COMPR EHENS HARSHIL METAB OLIC PANEL carbon dioxide 17 mmol/ L 20-32 low Not Available [facility] [address], [address], 01/13/2024 09:22:27 01/12/20 24 01/13/2024 COMPR EHENS HARSHIL METAB OLIC PANEL calcium 9.3 mg/dL 8.6-10 .4 normal Not Available [address], [address], 01/13/2024 09:22:27 01/12/20 24 01/13/2024 COMPR EHENS HARSHIL METAB OLIC PANEL protein, total 7.3 g/dL 6.1-8. 1 normal Not Available [address], [address], 01/13/2024 09:22:27 01/12/20 24 01/13/2024 COMPR EHENS HARSHIL METAB OLIC PANEL albumin 4.3 g/dL 3.6-5. 1 normal Not Available [address], [address], 01/13/2024 09:22:27 01/12/20 24 01/13/2024 COMPR EHENS HARSHIL METAB OLIC PANEL globulin 3.0 g/dL_ (calc ) 1.9-3. 7 normal Not Available [address], [address], 01/13/2024 09:22:27 01/12/20 24 01/13/2024 COMPR EHENS HARSHIL METAB OLIC PANEL albumin/glob ulin ratio 1.4 (calc ) 1.0-2. 5 normal Not Available [address], [address], 01/13/2024 09:22:27 01/12/20 24 01/13/2024 COMPR EHENS HARSHIL METAB OLIC PANEL bilirubin, total 0.4 mg/dL 0.2-1. 2 normal Not Available [address], [address], 01/13/2024 09:22:27 01/12/20 24 01/13/2024 COMPR EHENS HARSHIL METAB OLIC PANEL alkaline phosphatase 98 U/L 37-153 normal Not Available [facility] [address], [address], 01/13/2024 09:22:27 01/12/20 24 01/13/2024 COMPR EHENS HARSHIL METAB OLIC PANEL AST 13 U/L 10-35 normal Not Available [address], [address], 01/13/2024 09:22:27 01/12/20 24 01/13/2024 COMPR EHENS HARSHIL METAB OLIC PANEL ALT 8 U/L 6-29 normal Not Available [address], [address], 01/13/2024 09:22:27 01/12/20 24 01/13/2024 CBC (INCL UDES DIFF/ PLT) white blood cell count 7.5 thous and/u L 3.8-10 .8 normal Not Available [address], [address], 01/13/2024 09:22:28 01/12/20 24 01/13/2024 CBC (INCL UDES DIFF/ PLT) red blood cell count 3.48 tamika on/uL 3.80-5 .10 low Not Available [address], [address], 01/13/2024 09:22:28 01/12/20 24 01/13/2024 CBC (INCL UDES DIFF/ PLT) hemoglobin 10.6 g/dL 11.7-1 5.5 low Not Available [facility] [address], [address], 01/13/2024 09:22:28 01/12/20 24 01/13/2024 CBC (INCL UDES DIFF/ PLT) hematocrit 32.8 % 35.0-4 5.0 low Not Available [address], [address], 01/13/2024 09:22:28 01/12/20 24 01/13/2024 CBC (INCL UDES DIFF/ PLT) MCV 94.3 fL 80.0-1 00.0 normal Not Available [facility] [address], [address], 01/13/2024 09:22:28 01/12/20 24 01/13/2024 CBC (INCL UDES DIFF/ PLT) MCH 30.5 pg 27.0-3 3.0 normal Not Available [facility] [address], [address], 01/13/2024 09:22:28 01/12/20 24 01/13/2024 CBC (INCL UDES DIFF/ PLT) MCHC 32.3 g/dL 32.0-3 6.0 normal Not Available [address], [address], 01/13/2024 09:22:28 01/12/20 24 01/13/2024 CBC (INCL UDES DIFF/ PLT) RDW 12.8 % 11.0-1 5.0 normal Not Available [address], [address], 01/13/2024 09:22:28 01/12/20 24 01/13/2024 CBC (INCL UDES DIFF/ PLT) platelet count 267 thous and/u L 140-40 0 normal Not Available [facility] [address], [address], 01/13/2024 09:22:28 01/12/20 24 01/13/2024 CBC (INCL UDES DIFF/ PLT) MPV 11.3 fL 7.5-12 .5 normal Not Available [facility] [address], [address], 01/13/2024 09:22:28 01/12/20 24 01/13/2024 CBC (INCL UDES DIFF/ PLT) absolute neutrophils 5355 cells /uL 1500-7 800 normal Not Available [address], [address], 01/13/2024 09:22:28 01/12/20 24 01/13/2024 CBC (INCL UDES DIFF/ PLT) absolute lymphocytes 1560 cells /uL 850-39 00 normal Not Available [address], [address], 01/13/2024 09:22:28 01/12/20 24 01/13/2024 CBC (INCL UDES DIFF/ PLT) absolute monocytes 450 cells /uL 200-95 0 normal Not Available [address], [address], 01/13/2024 09:22:28 01/12/20 24 01/13/2024 CBC (INCL UDES DIFF/ PLT) absolute eosinophils 83 cells /uL 15-500 normal Not Available [facility] [address], [address], 01/13/2024 09:22:28 01/12/20 24 01/13/2024 CBC (INCL UDES DIFF/ PLT) absolute basophils 53 cells /uL 0-200 normal Not Available [facility] [address], [address], 01/13/2024 09:22:28 01/12/20 24 01/13/2024 CBC (INCL UDES DIFF/ PLT) neutrophils 71.4 % normal Not Available [facility] [address], [address], 01/13/2024 09:22:28 01/12/20 24 01/13/2024 CBC (INCL UDES DIFF/ PLT) lymphocytes 20.8 % normal Not Available [facility] [address], [address], 01/13/2024 09:22:28 01/12/20 24 01/13/2024 CBC (INCL UDES DIFF/ PLT) monocytes 6.0 % normal Not Available [address], [address], 01/13/2024 09:22:28 01/12/20 24 01/13/2024 CBC (INCL UDES DIFF/ PLT) eosinophils 1.1 % normal Not Available [facility] [address], [address], 01/13/2024 09:22:28 01/12/20 24 01/13/2024 CBC (INCL UDES DIFF/ PLT) basophils 0.7 % normal Not Available [facility] [address], [address], 01/13/2024 09:22:28 01/12/20 24 01/13/2024 T4, FREE T4, free 1.1 NG/dL 0.8-1. 8 normal Not Available [facility] [address], [address], 01/13/2024 09:22:29 01/12/20 24 01/13/2024 VITAM IN [...] pg/mL will have sympt oms. Not Available [facility] [address], [address], 01/13/2024 09:22:30 01/12/20 24 01/13/2024 TSH TSH 0.69 mIU/L 0.40-4 .50 normal Not Available [facility] [address] [address], [place], [address], 01/13/2024 09:22:31 01/12/20 24 01/13/2024 HEMOG LOBIN [...] diagn osis of diabe carli in child nga. Accor ding to Ameri can Diabe carli [...] valid ation testi ng condu cted at [facility] , the [facility] orm relat harshil [...] is not recom amandeep [email or web address] Not Available [address], [address], 01/13/2024 09:22:32 01/19/20 24 01/20/2024 IRON, TIBC AND JAMAL TIN PANEL iron, total 97 mcg/d L 45-160 normal Not Available [address], [address], 01/20/2024 15:00:03 01/19/20 24 01/20/2024 IRON, TIBC AND JAMAL TIN PANEL iron binding capacity 268 mcg/d L_(ca lc) 250-45 0 normal Not Available [address], [address], 01/20/2024 15:00:03 01/19/20 24 01/20/2024 IRON, TIBC AND JAMAL TIN PANEL % saturation 36 %_(ca lc) 16-45 normal Not Available [address], [address], 01/20/2024 15:00:03 01/19/20 24 01/20/2024 IRON, TIBC AND JAMAL TIN PANEL ferritin 49 NG/mL 16-288 normal Not Available [address], [address], 01/20/2024 15:00:03 01/19/20 24 01/20/2024 FOLAT E, SERUM folate, serum 7.1 NG/mL normal Refer ence Range Low: <3.4 Borde rline : 3.4-5 .4 Mary l: >5.4 Not Available [address], [address], 01/20/2024 15:00:04 01/19/20 24 01/20/2024 VITAM IN [...] pg/mL will have sympt oms. Not Available [facility] [address] [place], [address], 01/20/2024 15:00:05 08/07/20 24 08/07/2024 VITAM IN B12 (FRANKLYN DANG ) vb12 285 pg/mL 239-93 1 Not Available [facility] (Lab) [address] [place], [address], 08/07/2024 20:10:10 08/07/20 24 08/09/2024 CERUL OPLAS MIN ceruloplasmi n 28.7 mg/dL 19.0-3 9.0 Perfo rmed at: [facility] - [facility] [address] [address] Lab Direc tor: Sudhakar guallpa PhD, Phone : [phone] Not Available [facility] (Lab) [address] [place], [address], 08/09/2024 08:17:41 08/07/20 24 08/11/2024 RPR SCREE N RPR NON-RE ACTIVE nonrea ctive Not Available [facility] (Lab) [address] [place], [address], 08/11/2024 12:52:50 11/02/19 24 11/02/2023 CT, brain , w/o contr ast No observ ation record ed. [address], [place], [address], 11/02/2023 13:42:24 11/08/19 24 MRI, brain , w/o contr ast [facility] [address] [facility] [address] [place] [address] Patien t Name: LORENZO BOOTH Judy Access ion #: [id number] Sex: F : 1940 0 Dictat ed By: Drake Ortega ms Attend ing Physic lily: ALEJANDRO ANGULO CE Orderi ng Physic lily: ALEJANDRO ANGULO CE Exam Date: 2023 08:32 AM Exam Name: MRI BRAIN WO Admitt ing Diagno sis(es ): ACCESS ION #: [id number] EXAMIN ATION: MRI BRAIN WO INDICA [...] soft tissue s. IMPRES EVA: Page 1 [facility] [address] [facility] [address], [place] [address] Patien t Name: LORENZO BOOTH Access ion #: [id number] Sex: F : 1940 0 Dictat [...] at 2023 10:14: 52 AM Page 2 [email or web address] [facility] (Imaging) [address] [place], [address], 11/08/2023 12:34:09 11/08/19 24 MRI, brain , w/o contr ast [facility] [address] [place] [address] Patien t Name: LORENZO BOOTH Access ion #: [id number] Sex: F : 1940 0 Dictat [...] ORIGIN AL REPORT ACCESS ION #: [id number] EXAMIN ATION: MRI BRAIN WO INDICA [...] vessel s are mainta ined. Page 1 [facility] [address] [place] [phone] Patien t Name: LORENZO BOOTH Access ion #: [id number] Sex: F : 1940 0 Dictat [...] at 2023 10:55: 45 AM Page 2 [email or web address] [facility] (Imaging) [address] [place], [address], 11/08/2023 12:34:31 11/08/19 24 MRI, cervi carmen spine , w/o contr ast [facility] [address], [place] [address] Patien t Name: LORENZO BOOTH Access ion #: [id number] Sex: F : 1940 0 Dictat [...] . At the C4-C5 level, there is switchboard operator supervisor ior disc osteop hyte comple x. There is no signif icant canal stenos is. There is modera te bilate ral neural forami nal stenos is second brant to uncove rtebra l joint hypert rophy. At the C5-C6 level, there is a switchboard operator supervisor ior centra l disc protru eva. There is no signif icant canal stenos is. There is mild left and no signif icant right Page 1 [facility] [address] [place] [address] Patien t Name: LORENZO BOOTH Access ion #: [id number] Sex: F : 1940 0 Dictat ed By: Drake Ortega ms Attend ing Physic lily: MOY WILSON Physic lily: ALEJANDRO ANGULO Exam Date: 2023 08:32 AM Exam Name: MRI C SPINE WO Admitt ing Diagno sis(es ): neural forami nal stenos is. At the C6-C7 level, there is a broad- based switchboard operator supervisor ior disc osteop hyte comple x. There [...] at 2023 11:17: 10 AM Page 2 [email or web address] [facility] (Imaging) [address] [place], [address], 11/08/2023 12:35:35 01/21/20 24 01/21/2024 CT, brain , w/o contr ast No observ ation record ed. [address], [place], [address], 01/22/2024 09:06:00 01/21/20 24 01/21/2024 XR, chest , 2 view No observ ation record ed. [address], [place], [address], 01/22/2024 09:06:28 04/20/20 24 04/20/2024 XR, ribs, bilat eral No observ ation record ed. [address], [place], [address], 04/20/2024 15:04:17 04/20/20 24 04/20/2024 XR, hip + pelvi s, unila teral No observ ation record ed. [address], [place], [address], 04/20/2024 15:05:57 04/20/20 24 04/20/2024 CT, head + brain , w/o contr ast No observ ation record ed. [address], [place], [address], 04/20/2024 15:06:52 10/23/19 25 10/23/2024 XR, chest + abdom en + pelvi s No observ ation record ed. [address], [place], [address], 10/24/2024 06:52:48 10/23/19 25 10/23/2024 CT, angio gram, head, w/wo contr ast No observ ation record ed. [address], [place], [address], 10/24/2024 06:54:12 10/23/19 25 10/23/2024 CT, chest , w/ contr ast No observ ation record ed. [address] [address], [place], [address], 10/24/2024 06:53:36 10/23/19 25 10/23/2024 XR, abdom en No observ ation record ed. [address] [address], [place], [address], 10/24/2024 06:54:40 10/24/19 25 10/23/2024 XR, abdom en No observ ation record ed. [address] [address], [place], [address], 10/31/2024 12:21:01 10/24/19 25 10/24/2024 XR, chest No observ ation record ed. [address] [address], [place], [address], 10/24/2024 09:46:11 10/24/19 25 10/24/2024 XR, chest No observ ation record ed. [address] [address], [place], [address], 10/24/2024 10:34:35 10/25/19 25 10/25/2024 XR, chest No observ ation record ed. [address] [address], [place], [address], 10/25/2024 09:18:08 10/25/19 25 10/25/2024 US, renal No observ ation record ed. [address] [address], [place], [address], 10/31/2024 12:24:48 10/25/19 25 10/24/2024 US, echoc ardio gram No observ ation record ed. [address] [address], [place], [address], 10/25/2024 13:36:07 10/26/19 25 10/26/2024 XR, chest No observ ation record ed. [address], [place], [address], 10/26/2024 08:12:38 10/27/19 25 10/27/2024 XR, chest No observ ation record ed. [address], [place], [address], 10/27/2024 09:43:29 10/28/19 25 10/28/2024 XR, chest No observ ation record ed. [address], [place], [address], 10/28/2024 10:39:45 10/30/19 25 10/30/2024 MRI, brain + brain stem, w/o contr ast No observ ation record ed. [address], [place], [address], 10/30/2024 12:35:23 Result Notes None recorded. Problems Name Problem SNOMED Code Status Onset Date Resolution Date Notes Provider Name and Address Organization Details Recorded Time Disorder of shoulder 019230995 Active Not Available [facility] 3 12:49:04 Pain in right sacroiliac joint 1881080039712 9107 Active 2021 Not Available [facility] 3 12:49:05 Bilateral hip joint pain 5706452298883 9100 Active 2021 Not Available [facility] 3 12:49:05 Indigestio n 655375446 Active Not Available [facility] 3 12:49:05 Asthma 463117008 Active Not Available [facility] 3 12:49:05 Full thickness rotator cuff tear 504637832 Active Not Available [facility] 3 12:49:05 Closed fracture proximal humerus, greater tuberosity 476860983 Active Not Available [facility] 3 12:49:05 Allergic rhinitis caused by pollen 35681457 Active Not Available [facility] 3 12:49:05 Closed traumatic dislocatio n of joint of shoulder region 21137433 Active Not Available [facility] 3 12:49:05 Gastroesop hageal reflux disease 817210882 Active Not Available [facility] 3 12:49:05 Edema 652183038 Active Not Available [facility] 3 12:49:06 Pure hyperchole sterolemia 528488044 Active Not Available [facility] 3 12:49:06 Shoulder joint pain 057772429 Active Not Available [facility] 3 12:49:06 Low back pain 874253924 Active 2021 Not Available [facility] 3 12:49:06 Trochanter ic bursitis of right hip 9112267544480 00 Active 2021 Not Available [facility] 3 12:49:06 Vitamin D deficiency 09981344 Active 2021 Not Available [facility] 3 12:49:06 Disorder of vitamin B12 091336318 Active Not Available [facility] 3 12:49:06 Disorder of rotator cuff 387831293 Active Not Available [facility] 3 12:49:06 Ventral incisional hernia 169574123 Active Not Available [facility] 3 12:49:07 Itching of skin 562056885 Active 2021 Not Available [facility] 3 12:49:07 Nausea 465655001 Active 2021 Not Available [facility] 3 12:49:07 Congestive heart failure 10233611 Active Not Available [facility] 3 12:49:07 Type 2 diabetes mellitus 18320967 Active Not Available [facility] 3 12:49:07 Contusion of lower leg 54615830 Active Not Available [facility] 3 12:49:07 Essential hypertensi on 75633876 Active Not Available [facility] 3 12:49:08 Osteoporos is 08566259 Active 2021 Not Available [facility] 3 12:49:08 Fracture of humerus 17724146 Active Not Available [facility] 3 12:49:08 Brachial neuritis 55224926 Active Not Available [facility] 3 12:49:08 Sleep apnea 63405200 Active Not Available [facility] 3 12:49:08 Epigastric pain 56775810 Active Not Available [facility] 3 12:49:08 Neck pain 39844622 Active Not Available [facility] 3 12:49:09 Gout 37234078 Active 2016 Not Available [facility] 3 12:49:09 Abdominal pain 72678809 Active 2022 Margoth Angulo MD [address], [place], [address] , [employer] [facility] [employer] 3 11:49:24 Cervical radiculopa thy 73260233 Active 2022 Margoth Angulo MD [address], [address], [place], [address] , [facility] [employer] [facility] [employer] 3 14:58:47 Bilateral shoulder joint pain 9225705107851 9104 Active 2022 Allie Dawson, [place] null, [place] - S [employer] [facility] 3 14:10:18 Bilateral shoulder osteoarthr itis 8630595569862 08 Active 2022 Giovani Maher MD [address], [address], [place], [address] , [facility] [employer] [facility] [employer] [facility] 3 14:29:00 Pruritic rash 27288397 Active 2022 Margoth Angulo MD [address], [address], [place], [address] , [employer] - [facility] [employer] [facility] [facility] [employer] 3 14:20:00 Anxiety 13203587 Active 2023 Margoth Angulo MD [address], [address], [place], [address] , [employer] 4 13:38:55 Ataxia 45857779 Active 2023 Margoth Angulo MD [address], [address], [place], [address] , [facility] 4 11:58:30 Cerebrovas cular accident 910687100 Active 2023 Velia Allred null, [place] - [facility] 4 16:38:58 Dizziness 037507844 Active 2023 Margoth Angulo MD [address], [address], [place], [address] , [facility] 4 13:56:16 Memory impairment 357456480 Active 2023 Margoth Angulo MD [address], [address], [place], [address] , [facility] 4 11:13:09 Anemia 400092557 Active 2023 DEIDRE Barrera, [place] - [facility] 4 16:25:24 Dementia 66794593 Active 2023 Margoth Angulo MD [address], [address], [place], [address] , [facility] - [facility] 4 11:12:21 Depressive disorder 72867584 Active 2023 Margoth Angulo MD [address], [address], [place], [address] , [facility] - [facility] 4 16:15:03 Acute sinusitis 27240892 Active 2023 Margoth Angulo MD [address], [place], [address] , [facility] - [facility] 4 16:30:40 Type 2 diabetes mellitus without complicati on 125243705 Active 2024 DEIDRE Barrera, [place] [facility] 5 14:01:32 Problem Notes None recorded. Procedures Surgical History Date Name Laterality Status Provider Name and Address Organization Details Recorded Time 4 Transitional_C are_Management completed Margoth Angulo MD [address], [address], [place], [address], [facility] 01/26/2024 12:04:22 3 Ortho - Cortisone Injection completed Giovani Maher MD [address], [place], [address], [facility] 05/24/2023 14:27:13 Imaging Results Imaging Date Name Status LastModified by Organization Details LastModified Time 11/02/2023 CT, brain, w/o contrast completed [address], [address], 11/02/2023 13:42:24 11/08/2023 MRI, brain, w/o contrast completed [address] (Imaging) [address] [place], [address], 11/08/2023 12:34:09 11/08/2023 MRI, brain, w/o contrast completed [address] (Imaging) [address] [place], [address], 11/08/2023 12:34:31 11/08/2023 MRI, cervical spine, w/o contrast completed [address] (Imaging) [address] [place], [address], 11/08/2023 12:35:35 01/21/2024 CT, brain, w/o contrast completed [address], [address], 01/22/2024 09:06:00 01/21/2024 XR, chest, 2 view completed [address], [address], 01/22/2024 09:06:28 04/20/2024 XR, ribs, bilateral completed [address], [address], 04/20/2024 15:04:17 04/20/2024 XR, hip + pelvis, unilateral completed [address] [facility], [place], [address], 04/20/2024 15:05:57 04/20/2024 CT, head + brain, w/o contrast completed [address], [place], [address], 04/20/2024 15:06:52 10/23/2024 XR, chest + abdomen + pelvis completed [address] [address], [place], [address], 10/24/2024 06:52:48 10/23/2024 CT, angiogram, head, w/wo contrast completed [address] [address], [place], [address], 10/24/2024 06:54:12 10/23/2024 CT, chest, w/ contrast completed [address] [address], [place], [address], 10/24/2024 06:53:36 10/23/2024 XR, abdomen completed [address] [facility] [place], [address], 10/24/2024 06:54:40 10/23/2024 XR, abdomen completed [address] [facility], [place], [address], 10/31/2024 12:21:01 10/24/2024 XR, chest completed [address] [address], [place], [address], 10/24/2024 09:46:11 10/24/2024 XR, chest completed [address], [address], 10/24/2024 10:34:35 10/25/2024 XR, chest completed [address] [facility], [place], [address], 10/25/2024 09:18:08 10/25/2024 US, renal completed [address] [address], [place], [address], 10/31/2024 12:24:48 10/24/2024 US, echocardiogram completed [address] [facility], [place], [address], 10/25/2024 13:36:07 10/26/2024 XR, chest completed [address] [address], [place], [address], 10/26/2024 08:12:38 10/27/2024 XR, chest completed [address] [address], [place], [address], 10/27/2024 09:43:29 10/28/2024 XR, chest completed [address], [address], 10/28/2024 10:39:45 10/30/2024 MRI, brain + brain stem, w/o contrast completed [address], [address], 10/30/2024 12:35:23 Procedure Notes None recorded. Medical Equipment None Reported. Allergies Allergen ID Allergen Name Allergen Category Reaction Reaction Severity Criticality Documentation Date Start Date Code Code System Note Provider Name and Address Organization Details Recorded Time 58502 Pravachol medicatio n myalgias (muscle pain) Not available Not available 11/10/2022 80277 3 RxNorm Not Available [facility] 12:53:47 80708 Lipitor medicatio n myalgias (muscle pain) Not available Not available 11/10/2022 53810 5 RxNorm Not Available [facility] 3 12:53:47 90381 Lescol medicatio n other Not available Not available 11/10/2022 61431 2 RxNorm did not help Not Available [facility] 3 12:53:48 53357 Crestor medicatio n myalgias (muscle pain) Not available Not available 11/10/2022 97403 4 RxNorm Not Available [facility] 3 12:53:48 Medications Name Sig [...] Available Not Available clopidogrel 75 mg tablet TAKE 1 TABLET BY MOUTH DAILY 2024 active Not Available Not Available Not Avai lable chlorthalid one 25 mg tablet TAKE 1 [...] 20 mg by injection route. 01/25 completed [facility]: 0003- 0494- 20 Not Available Not Available [...] administe red by the provider 12/03 completed [facility]: 0409- 4276- 17 Not Available Not Available [...] 40 mg by injection route. 01/25 completed [facility] 03696 -064- 01 Not Available Not Available Not [...] Updated DateTime 4 162.56 cm 26.9 kg/m2 08350 g 86 /min 97.2 [degF] 96 % 96 % 136 mm[Hg] 72 mm[Hg] EDITH Luque [facility] [employer] [facility] 4 11:28:15 Date Recorded Body height Body mass index (BMI) Body weight Heart rate Body temperature Oxygen saturation Oxygen saturation in Arterial blood by Pulse oximetry Systolic blood pressure Diastolic blood pressure Provider Name and Address Organization Details Last Updated DateTime 4 154.94 cm 28.9 kg/m2 15104.6 3 g 65 /min 97.8 [degF] 96 % 96 % 130 mm[Hg] 74 mm[Hg] [facility] 4 11:02:39 Date Recorded Body height Body mass index (BMI) Body weight Heart rate Body temperature Oxygen saturation Oxygen saturation in Arterial blood by Pulse oximetry Systolic blood pressure Diastolic blood pressure Provider Name and Address Organization Details Last Updated DateTime 4 154.94 cm 27.4 kg/m2 57173.8 9 g 67 /min 97.2 [degF] 98 % 98 % 120 mm[Hg] 64 mm[Hg] Emily SmallEDITH [employer] [facility] [employer] [facility] 4 11:37:38 Date Recorded Body height Body mass index (BMI) Body weight Heart rate Body temperature Oxygen saturation Oxygen saturation in Arterial blood by Pulse oximetry Systolic blood pressure Diastolic blood pressure Provider Name and Address Organization Details Last Updated DateTime 4 154.94 cm 27.2 kg/m2 05647.3 g 84 /min 97.3 [degF] 96 % 96 % 138 mm[Hg] 70 mm[Hg] Emily Small EDITH [place] [employer] [facility] [employer] [facility] 4 10:48:36 Date Recorded Body height Body mass index (BMI) Body weight Heart rate Body temperature Oxygen saturation Oxygen saturation in Arterial blood by Pulse oximetry Systolic blood pressure Diastolic blood pressure Provider Name and Address Organization Details Last Updated DateTime 4 154.94 cm 28 kg/m2 15830.6 7 g 73 /min 97 [degF] 97 % 97 % 116 mm[Hg] 62 mm[Hg] Emily SmallEDITH [employer] [facility] [employer] [facility] 4 11:41:39 Social History Question Answer Notes LastModified by [employer] Details LastModified Time Tobacco Smoking Status Never Smoker Not Available [facility] 11/10/2022 12:46:35 What Is Your Level Of Alcohol Consumption? None [id number] Information not available 11/10/2022 Are You Blind Or Do You Have Difficulty Seeing? No MIGRATION.[id number] 026 Information not available 11/10/2022 Are You Deaf Or Do You Have Serious Difficulty Hearing? No MIGRATION.[id number] 026 Information not available 11/10/2022 Sex: Female Functional Status Question Answer Note LastModified by [employer] Details LastModified Time Do you have difficulty walking or climbing stairs? No MIGRATION.[id number] 026 Information not available 11/10/2022 Do you have transportation difficulties? No MIGRATION.9953835 026 Information not available 11/10/2022 Are you able to walk? YESWOREST MIGRATION.[id number] 026 Information not available 11/10/2022 Do you have difficulty doing errands alone? No MIGRATION.5858550 026 Information not available 11/10/2022 Are you able to care for yourself? Yes MIGRATION.[id number] 026 Information not available 11/10/2022 Do you have difficulty dressing or bathing? No MIGRATION.3261930 026 Information not available 11/10/2022 Mental Status Question Answer Note LastModified by Organizat ion Details LastModified Time Do you have difficulty concentrating, remembering or making decisions? No MIGRATION.[id number] 6 Information not available 11/10/2022 Family History Relationship Description Onset Age of this Age Resolved Age Notes LastModified by Organization Details LastModified Time Unspecified Relation Hypertensive disorder MIGRATION.096 [id number] Not available 11/10/2022 12:46:37 Unspecified Relation Diabetes mellitus MIGRATION.056 [id number] Not available 11/10/2022 12:46:37 Unspecified Relation Kidney disease MIGRATION.592 [id number] Not available 11/10/2022 12:46:37 Notes:Mother at 76 in [facility]. No hx of any major medical problems. [...] HAVE YOU BEEN HOSPITALIZED OR SEEN IN [facility] ER IN THE PAST YEAR ? [...] high-dose, quadrivalent, PF [address] [employer] 06/28/2023 17:21:42 Influenza, split virus, trivalent, preservative 4 completed Not Available [facility] 11/10/2022 12:53:41 Influenza, split virus, trivalent, preservative 3 completed Not Available [facility] 11/10/2022 12:53:41 Influenza, split virus, quadrivalent, preservative 1 completed Not Available [facility] 11/10/2022 12:53:41 SARS-COV-2 (COVID-19) vaccine, UNSPECIFIED 1 completed Not Available [facility] 11/10/2022 12:53:41 SARS-COV-2 (COVID-19) vaccine, UNSPECIFIED 1 completed Not Available [facility] 11/10/2022 12:53:41 Influenza, high-dose, trivalent, PF 7 completed Not Available [facility] 11/10/2022 12:53:42 Pneumococcal conjugate PCV 13 5 completed Not Available [facility] 11/10/2022 12:53:42 Influenza, high-dose, quadrivalent, PF 1 completed Not Available [facility] 11/10/2022 12:53:42 Influenza, high-dose, quadrivalent, PF 2 completed Not Available [facility] 11/10/2022 12:53:42 Influenza, high-dose, trivalent, PF 8 completed Not Available [facility] 11/10/2022 12:53:42 Influenza, high-dose, trivalent, PF 6 completed Not Available [facility] 11/10/2022 12:53:42 Influenza, high-dose, trivalent, PF 7 completed Not Available [facility] 11/10/2022 12:53:42 Influenza, split virus, quadrivalent, preservative 5 completed Not Available [facility] 11/10/2022 12:53:43 Influenza, high-dose, trivalent, PF 4 completed Margoth Angulo MD [address], [address], [place], [address], [place] - [employer] 08/07/2024 12:05:13 Pneumococcal conjugate PCV20, polysaccharide MJQ886 conjugate, adjuvant, PF 4 completed Margoth Angulo MD [address], [place], [address], [employer] 08/07/2024 12:05:13 Past Encounters Encounter ID Performer Location Encounter Start Date Encounter Closed Date Diagnosis/Indication Diagnosis SNOMED-CT Code Diagnosis ICD10 Code Diagnosis Note [id number] [facility] [place] [address] [place] [address] 01/20/2021 00:00:00 01/20/2021 13:00:10 [id number] [facility] [place] [address] [place] [address] 05/29/2021 00:00:00 05/29/2021 16:52:54 [id number] [facility] [place] [address] [facility] [place] [address] 09/18/2021 00:00:00 09/18/2021 11:23:18 [id number] [facility] [place] [address] [place] [address] [place] [address] 12/29/2021 00:00:00 12/29/2021 12:47:51 [id number] [facility] [place] [address] [facility] [address] [place] [address] 01/21/2022 00:00:00 01/21/2022 11:55:59 [id number] [facility] [place] [address] [place] [address] [place] [address] 05/18/2022 00:00:00 05/18/2022 12:14:20 [id number] Margoth Angulo MD [facility] [place] [address] [place] [address] [place] [address] 12/03/2022 11:15:02 12/03/2022 12:01:10 Essential hypertension 08088452 I10 Gastroesop hageal reflux disease 501500932 K21.9 Pure hypercholesterolemia 969920105 E78.00 Abdominal pain 59427448 R10.9 [id number] Margoth Angulo MD [facility] [place] [address] [place] [address] [place] [address] 03/01/2023 14:40:27 03/01/2023 15:03:31 Cervical radiculopathy 40313806 M54.12 [id number] Giovani Maher MD [facility] [place] [address] [facility] [address] [place] [address] 05/24/2023 13:52:44 05/24/2023 14:44:34 Bilateral shoulder joint pain 3262340682 2493739 M25.511 Bilateral shoulder osteoarthritis 9909596717 79020 M19.011 M19.273 [id number] ELAINE Santacruz [facility] [place] [address] [facility] [address] [place] [address] 10/27/2023 13:29:16 10/27/2023 14:38:35 Bilateral shoulder osteoarthritis 9985599732 37843 M19.011 M19.012 Bilateral shoulder joint pain 2424986725 2620619 M25.533 [id number] Margoth Angulo MD [facility] [place] [address] [place] [address] [place] [address] 11/04/2023 11:10:13 11/04/2023 12:13:51 Ataxia 52185193 R27.0 Cervical radiculopathy 11316266 M54.12 Essential hypertension 71272880 I10 Pure hypercholesterolemia 886419400 E78.00 Type 2 alexis betes mellitus 22927528 E11.9 [id number] Margoth Angulo MD [facility] [place] [address] [place] [address] [place] [address] 01/12/2024 10:57:40 01/12/2024 11:30:48 Memory impairment 386632367 R41.3 Cerebrovas cular accident 564094022 I63.9 Essential hypertension 13387976 I10 Gastroesop hageal reflux disease 316766442 K21.9 Gout 95029302 M10.9 Type 2 alexis betes mellitus 52620450 E11.9 Pure hypercholesterolemia 273988841 E78.00 [id number] Margoth Angulo MD [facility] Internal Med [facility] [address] [facility] [address] [place] [address] 01/26/2024 11:23:50 01/26/2024 12:13:56 Transition of care 8116502486 105 Z75.8 Cerebrovas cular accident 637426621 I63.9 Essential hypertension 12626156 I10 Pure hypercholesterolemia 176633066 E78.00 Type 2 alexis betes mellitus 26405306 E11.9 [id number] Margoth Angulo MD [facility] [place] [address] [place] [address] [place] [address] 05/10/2024 10:43:13 05/10/2024 11:23:47 Dementia 81104616 F03.90 Essential hypertension 62162369 I10 Gastroesop hageal reflux disease 326313346 K21.9 Pure hypercholesterolemia 689517867 E78.00 Type 2 alexis betes mellitus 14368004 E11.9 [id number] Margoth Angulo MD [facility] [address] [facility] [address] [place] [address] 08/07/2024 11:33:01 08/07/2024 12:33:19 Administration of influenza vaccine 40250080 Z23 Administra tion of pneumococcal vaccine 64938262 Z23 Dementia 33086533 F03.90 Essential hypertension 69733733 I10 Pure hypercholesterolemia 584367289 E78.00 Health Concerns Section Related Observation LastModified by Organization Detai ls LastModified Time None Recorded Concern Status LastModified by Organization Details LastModified Time None Recorded Advance Directives Directive None Recorded Payers Encounter Date Sequence Insurance Name Policy Number Policy Dior Covered Member ID Dior Member ID Guarantor Name 11/04/2023 1 [place] Madyson J Enzo [id number] Madyson J Enzo 11/04/2023 2 [employer] ([facility]) Madyson J Enzo [id number] Madyson J Enzo 01/12/2024 1 [place] ([place]ARE) Madyson J Enzo [id number] Madyson J Enzo 01/12/2024 2 [employer] [place] [employer] ([facility]) Madyson J Enzo [id number] Madyson J Enzo 01/26/2024 1 [place] Madyson J Enzo [id number] Madyson J Enzo 01/26/2024 2 [employer] [place] [employer] ([facility]) Madyson J Enzo [id number] Madyson J Enzo 05/10/2024 1 [place] Madyson J Enzo [id number] Madyson J Enzo 05/10/2024 2 [employer] [place] [employer] ([facility]) Madyson J Enzo [id number] Madyson J Enzo 08/07/2024 1 [place] Madyson J Enzo [id number] Madyson J Enzo 08/07/2024 2 [place] LIFE INSURANCE [facility] ([facility]) Madyson Booth [id number] Madyson Booth Notes Date Note Type Note Provider Name [...] Systemic Symptoms:none Medication Reconciliation: from medication list. [id number]: Bone density scan demonstrated osteopenia with a [...] Does Not WorkLipitor MyalgiaPravachol Myalgia Vaccination and Nwjyvuluwrlj8680-86 Imboxbsby5719-00 Covid Fylznav1952-66 Prevnar 13 Oi0137-39 Pneumovax Surgical Etomtrn0099-36 Right Pltsjigt5738-95 Cataract Left Eye Preventative Testing Confirmed by Our Gbafzje8503/16/2023 MAMMOGRAM ALBUMIN 4.2 G/DL N005/20/2022 MICRO ALBUMIN >1140.0 MG/L H005/20/2022 HAIC 5.5 % N001/06/2022 DEXA SCAN06/16/2021 RDWWOXPVDBUPV41/18/2021 COLONOSCOPY (5 YEARS) 6001/17/2019 UPPER JNWYWCJEU18/06/2017 CT [facility] Social 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 Family HistoryMother at 76 in [place]. No hx of any major medical problems. Father at 54 from GI malignancy. Had four brothers. Three are living and in good health. One brother in infancy from congenital heart. Has two sisters both living and in good health. Margoth Angulo MD [address] [place] [address], [facility] [address], [place], [address], [facility] [employer] 11/04/2023 12:07:23 01/12/2024 text/html Patient Name: Yisel [...] Systemic Symptoms:none Medication Reconciliation: from medication list. 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 Family HistoryMother at 76 in [place]. No hx of any major medical problems. Father at 54 from GI malignancy. Had four brothers. Three are living and in good health. One brother in infancy from congenital heart. Has two sisters both living and in good health. Margoth Angulo MD [address] [place] [address], [facility] [address], [place], [address], [facility] [employer] 01/12/2024 11:23:30 01/26/2024 text/html Patient Name: Yisel [...] Symptoms:generalized fatigue Medication Reconciliation: from medication list. [id number]: Bone density scan demonstrated osteopenia with a [...] Does Not WorkLipitor MyalgiaPravachol Myalgia Vaccination and Fuzodordebmm2827-23 Qfrgskgzl0600-32 Covid Evjtirv4850-10 Prevnar 13 Ns2648-99 Pneumovax Surgical Ljldfpm8755-26 Right Jsfiqzup1944-07 Cataract Left Eye Preventative Dvjftcp8301/12/2024 ALBUMIN 4.3 G/DL N001/12/2024 HAIC 5.6 % OF TOTAL HGB N010/21/2023 PGCIICTYE72/05/2023 MAMMOGRAM MICRO ALBUMIN >1140.0 MG/L H001/06/2022 DEXA SCAN06/16/2021 HKREAKKIQALOO53/18/2021 COLONOSCOPY (5 YEARS) 6001/17/2019 UPPER ALBQVBIHU63/06/2017 CT [facility] Social HistoryDoes not smoke or [...] Does Not WorkLipitor MyalgiaPravachol Myalgia Vaccination and Ltdclxdollyw4794-61 Vlurqylrm3255-46 Covid Oycpsiw7501-53 Prevnar 13 Ws8858-12 Pneumovax Surgical Herfhmv3219-28 Right Jlnvcxgq0017-19 Cataract Left Eye Preventative Qzibxch1201/12/2024 ALBUMIN 4.3 G/DL N001/12/2024 HAIC 5.6 % OF TOTAL HGB N010/21/2023 DIIWGUVQV81/05/2023 MAMMOGRAM MICRO ALBUMIN >1140.0 MG/L H001/06/2022 DEXA SCAN06/16/2021 SKMYQROVKSHFH44/18/2021 COLONOSCOPY (5 YEARS) 6001/17/2019 UPPER MNGYXOZVY70/06/2017 CT [facility] Social 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 Family HistoryMother at 76 in [place]. No hx of any major medical problems. Father at 54 from GI malignancy. Had four brothers. Three are living and in good health. One brother in infancy from congenital heart. Has two sisters both living and in good health. Margoth Angulo MD [address] [place] [address], [address], [place] [facility] 01/26/2024 12:07:56 05/10/2024 text/html Patient Name: Yisel [...] Systemic Symptoms:none Medication Reconciliation: from medication list. [id number]: Bone density scan demonstrated osteopenia with a [...] Does Not WorkLipitor MyalgiaPravachol Myalgia Vaccination and [id number] Trxjjsrtp5689-69 Covid Vtsllbf4890-21 Prevnar 13 Pr7637-97 Pneumovax Surgical Btjuvob9400-37 Right Ovsutqmm1677-63 Cataract Left Eye Preventative Testing( ) 01/12/2024 [...] and in good health. Margoth Angulo MD [address] [place] [address], [facility] [address], [place], [address], [place] - [facility] 05/10/2024 11:19:29 08/07/2024 text/html Patient Name: St ter[facility] PooleDaarben Of Service: Tuesday ( 08.07.2024 ): 09/23/1949 [...] ALINA & ALINA( ) 2022- RSV Surgical Wavputh7548-74 Lt. Rotator Qqxr0783-45 Rt. Rotator Pjkr9359-89 Rt. Inguinal Aqmzya1839-48 Lt. Inguinal Hernia Preventative Testing( ) 05/28/2024 [...] Hx: ASHD (2) Margoth Angulo MD [address] [address], [place], [address], [facility] [employer] 08/07/2024 12:20:13 OBGyn Episode No OBEpisode recorded.
--- OUTSIDE RECORDS SUMMARY | 2024-11-13 13:51 | XMS_ITS | Clinical Summary ---
Author Organization [facility] [address] [facility] [address] Address [address] [place] [address] Care Team Providers Care Cloth Presser Name Role Phone Clayton Angulo MD Primary Care Provider Ac Butler MD Unavailable [phone] Young Juarez MD Unavailable [phone] Mahin Morataya MD Unavailable Allergies Active Allergy [...] total) by mouth daily Active blood-glucose meter ([employer] AUTOCODE METER) kit Use daily to check [...] long-term current use of insulin ([facility]) Check blood sugars once daily ac 90 each 3 9 Active lancets miscIndications :Type 2 diabetes mellitus with hyperglycemia, without long-term current use of insulin ([facility]) Check BG once daily rotating [...] 1 tablet (10 mg total) by mouth director drug safety before breakfast Active metFORMIN XR (GLUCOPHAGE XR) 500 mg 24 hr tabletIndicatio ns:Type 2 diabetes mellitus with hyperglycemia, without long-term current use of insulin (HCC) TAKE 2 TABLETS BY MOUTH DAILY WITH BREAKFAST 180 tablet 3 4 Active Active Problems Problem Noted Date Diagnosed Date Hyperlipidemia associated with type 2 diabetes tasha marino 05/30/2023 Assessment & Plan (09/29/2023 3:55 PM AVIATION SAFETY EQUIPMENT TECHNICIAN): Chronic, well-controlled Continue atorvastatin Update lipid profile Dyspnea 02/24/2021 Assessment & Plan (02/24/2021 1:44 PM CDT): Pt with hx of COPD and CHF Advised to follow up with PCP Microalbuminuria 10/25/2019 Assessment & Plan (10/25/2019 4:32 PM AVIATION SAFETY EQUIPMENT TECHNICIAN): Consider starting Invokana Hypertension associated with diabetes 07/31/2013 Overview (12/16/2016): HYPERTENSION NOS Assessment & Plan (09/29/2023 3:55 PM AVIATION SAFETY EQUIPMENT TECHNICIAN): Chronic, well-controlled CKD, following with renal Update [...] UNCNTRLD Assessment & Plan (09/29/2023 3:55 PM AVIATION SAFETY EQUIPMENT TECHNICIAN): Chronic, well-controlled Continue Jardiance Assessment & Plan [...] Metformin Assessment & Plan (10/25/2019 4:32 PM AVIATION SAFETY EQUIPMENT TECHNICIAN): Hba1c was Lab Results Component Value Date [...] ency, Chronic Hx Other Medical Claustrophobic; Comments: [facility] 06/05/2014 - CHF (congestive heart failur [...] on file Legal Sex Female 7:54 AM AVIATION SAFETY EQUIPMENT TECHNICIAN Gender Identity Not on file Sexual Orientation Not on file Obstetrics History Last Filed Vital Signs Vital Sign Reading Time Taken Comments Blood Pressure 120/70 09/29/2023 3:12 PM AVIATION SAFETY EQUIPMENT TECHNICIAN Pulse 64 09/29/2023 3:12 PM AVIATION SAFETY EQUIPMENT TECHNICIAN Temperature - - Respiratory Rate 16 03/16/2022 10:05 AM CDT Oxygen Saturation 96% 11/23/2018 10:13 AM CDT Inhaled Oxygen Concentration - - Weight 73.5 kg (162 lb 1.6 oz) 09/29/2023 3:12 P M AVIATION SAFETY EQUIPMENT TECHNICIAN Height 154.9 cm (5' 1) 09/29/2023 3:12 PM AVIATION SAFETY EQUIPMENT TECHNICIAN Body Mass Index 30.63 09/29/2023 3:12 PM AVIATION SAFETY EQUIPMENT TECHNICIAN Plan of Treatment Health Maintenance Due Date [...] HEMOGLOBIN A1C Routine 09/29/2023 3 :12 PM AVIATION SAFETY EQUIPMENT TECHNICIAN Type 2 diabetes mellitus with hyperglycemia, without long-term current use of insulin ([facility]/HCC) (HCC) POCT LIPID PANEL Routine 10/25/2019 2:10 PM AVIATION SAFETY EQUIPMENT TECHNICIAN Type 2 diabetes mellitus with hyperglycemia, without long-term current use of insulin (CMS/[facility]) ALBUMIN CREATININE RATIO, URINE Routine 03/07/2018 DIABETIC EYE EXAM Routine 01/25/2017 from Last 3 Months or Most Recently Relevant to Health Maintenance Results * (ABNORMAL) POCT hemoglobin A1c (09/29/2023 3:12 PM AVIATION SAFETY EQUIPMENT TECHNICIAN) Hemoglobin A1C, POC 5.6 % Blood spot 09/29/2023 3:12 PM AVIATION SAFETY EQUIPMENT TECHNICIAN us Mahin Morataya MD POINT OF CARE TEST ORDERABLES Fi nal Result * POCT lipid panel (10/25/2019 2:10 PM AVIATION SAFETY EQUIPMENT TECHNICIAN) Cholesterol, POC 186 mg/dL HDL, POC 56 mg/dL Triglycerides, POC 227 mg/dL LDL Cholesterol POC 85 mg/dL Chol/HDL Ratio, POC 3.3 Non-HDL Cholesterol, POC 130 mg/dL Cholesterol Total, POC 186 mg/dL Blood specimen (specimen) 10/25/2019 2:10 PM AVIATION SAFETY EQUIPMENT TECHNICIAN us Mahin Morataya MD POINT OF CARE [...] Relevant to Health Maintenance Insurance MEDICARE COMMERCIAL [facility] MEDICARE COMMERCIAL GENERIC MEDICARE COMMERCIAL GENERIC COMMERCIAL GENERIC MEDICARE Care Teams Cloth Presser Relationship Specialty Start Date End Date Clayton Angulo MD PCP - General 12/10/16 Ac Butler MD [address] [address] Consulting Physician Cardiology 07/13/18 Young Juarez MD [address] [address] Referring Physician Nephrology 03/08/23 [place] [id number] [address] Consulting Physician Endocrinology Diabetes & Metabolism 03/08/23
--- OUTSIDE RECORDS SUMMARY | 2024-11-13 13:51 | XMS_ITS | Referral Summary ---
Author Organization [facility] [address] [facility] [address] Address [address] [place] [address] Care Team Providers Care Shoe Clerk Name Role Phone Clayton Angulo MD Primary Care Provider Ac Butler MD Unavailable [phone] Young Juarez MD Unavailable [phone] Mahin Morataya MD Unavailable Allergies Active Allergy [...] total) by mouth daily Active blood-glucose meter ([employer] AUTOCODE METER) kit Use daily to check [...] hyperglycemia, without long-term current use of insulin ([facility]) Check blood sugars once daily ac 90 each 3 9 Active lancets miscIndications :Type 2 diabetes mellitus with hyperglycemia, without long-term current use of insulin ([facility]) Check BG once daily rotating times ac [...] 1 tablet (10 mg total) by mouth field kiln burner before breakfast Active metFORMIN XR (GLUCOPHAGE XR) 500 mg 24 hr tabletIndicatio ns:Type 2 diabetes mellitus with hyperglycemia, without long-term current use of insulin (HCC) TAKE 2 TABLETS BY MOUTH DAILY WITH BREAKFAST 180 tablet 3 4 Active Active Problems Problem Noted Date Diagnosed Date Hyperlipidemia associated with type 2 diabetes tasha marino 05/30/2023 Assessment & Plan (09/29/2023 3:55 PM RUNSTITCHING MACHINE OPERATOR): Chronic, well-controlled Continue atorvastatin Update lipid profile Dyspnea 02/24/2021 Assessment & Plan (02/24/2021 1:44 PM CDT): Pt with hx of COPD and CHF Advised to follow up with PCP Microalbuminuria 10/25/2019 Assessment & Plan (10/25/2019 4:32 PM RUNSTITCHING MACHINE OPERATOR): Consider starting Invokana Hypertension associated with diabetes 07/31/2013 Overview (12/16/2016): HYPERTENSION NOS Assessment & Plan (09/29/2023 3:55 PM RUNSTITCHING MACHINE OPERATOR): Chronic, well-controlled CKD, following with renal Update [...] UNCNTRLD Assessment & Plan (09/29/2023 3:55 PM RUNSTITCHING MACHINE OPERATOR): Chronic, well-controlled Continue Jardiance Assessment & Plan [...] Metformin Assessment & Plan (10/25/2019 4:32 PM RUNSTITCHING MACHINE OPERATOR): Hba1c was Lab Results Component Value Date [...] on file Legal Sex Female 7:54 AM RUNSTITCHING MACHINE OPERATOR Gender Identity Not on file Sexual Orientation Not on file Last Filed Vital Signs Vital Sign Reading Time Taken Comments Blood Pressure 120/70 09/29/2023 3:12 PM RUNSTITCHING MACHINE OPERATOR Pulse 64 09/29/2023 3:12 PM RUNSTITCHING MACHINE OPERATOR Temperature - - Respiratory Rate 16 03/16/2022 10:05 AM CDT Oxygen Saturation 96% 11/23/2018 10:13 AM CDT Inhaled Oxygen Concentration - - Weight 73.5 kg (162 lb 1.6 oz) 09/29/2023 3:12 P M RUNSTITCHING MACHINE OPERATOR Height 154.9 cm (5' 1) 09/29/2023 3:12 PM RUNSTITCHING MACHINE OPERATOR Body Mass Index 30.63 09/29/2023 3:12 PM RUNSTITCHING MACHINE OPERATOR Plan of Treatment Not on file Procedures Procedure Name Priority Date/Time Associated Diagnosis Comments POCT HEMOGLOBIN A1C Routine 09/29/2023 3 :12 PM RUNSTITCHING MACHINE OPERATOR Type 2 diabetes mellitus with hyperglycemia, without long-term current use of insulin (CMS/[facility]) (HCC) POCT LIPID PANEL Routine 10/25/2019 2:10 PM RUNSTITCHING MACHINE OPERATOR Type 2 diabetes mellitus with hyperglycemia, without long-term current use of insulin (CMS/[facility]) ALBUMIN CREATININE RATIO, URINE Routine 03/07/2018 DIABETIC EYE EXAM Routine 01/25/2017 from Last 3 Months or Most Recently Relevant to Health Maintenance Results * (ABNORMAL) POCT hemoglobin A1c (09/29/2023 3:12 PM RUNSTITCHING MACHINE OPERATOR) Hemoglobin A1C, POC 5.6 % Blood spot 09/29/2023 3:12 PM RUNSTITCHING MACHINE OPERATOR us Mahin Morataya MD POINT OF CARE TEST ORDERABLES Fi nal Result * POCT lipid panel (10/25/2019 2:10 PM RUNSTITCHING MACHINE OPERATOR) Cholesterol, POC 186 mg/dL HDL, POC 56 mg/dL Triglycerides, POC 227 mg/dL LDL Cholesterol POC 85 mg/dL Chol/HDL Ratio, POC 3.3 Non-HDL Cholesterol, POC 130 mg/dL Cholesterol Total, POC 186 mg/dL Blood specimen (specimen) 10/25/2019 2:10 PM RUNSTITCHING MACHINE OPERATOR Mahin Morataya MD POINT OF CARE TEST [...] COMMERCIAL GENERIC COMMERCIAL GENERIC MEDICARE Care Teams Shoe Clerk Relationship Specialty Start Date End Date Clayton Angulo MD PCP - General 12/10/16 Ac Butler MD [address] [address] Consulting Physician Cardiology 07/13/18 Young Juarez MD [address] [address] Referring Physician Nephrology 03/08/23 [place] [address] [facility] [address], [place] [address] Consulting Physician Endocrinology Diabetes & Metabolism 03/08/23
--- OUTSIDE RECORDS SUMMARY | 2024-11-13 13:51 | XMS_ITS | Clinical Summary ---
Author Organization [facility] Address [address] [facility] [place] [address] Care Team Providers Care Repairer Screen Crusher Name Role Phone Clayton Angulo MD Primary Care Provider [phone] Source Comments [facility],non-owned Affiliates and Associated Physician Practices is amultiple site organization consisting of ambulatory clinics and hospital sitesin [place], [place], [place] and [place]. This disclosure is being madepursuant to the Care Everywhere program and may not contain all information available regarding this patient. Last updated 18.[facility] Immunizations Name Administration Dates Next Due INFLUENZA [...] age to complete this topic Care Teams Repairer Screen Crusher Relationship Specialty Start Date End Date Clayton Angulo MD [address] [place] [address] [address] [place] [address] PCP - General 11/28/20
--- OUTSIDE RECORDS SUMMARY | 2024-11-13 13:51 | XMS_ITS | Referral Summary ---
Author Organization [facility] Address [address] [facility] [place] [address] Care Team Providers Care Hr Leader Name Role Phone Clayton Angulo MD Primary Care Provider [phone] Source Comments [facility],non-owned Affiliates and Associated Physician Practices is amultiple site organization consisting of ambulatory clinics and hospital sitesin [place], [place], [place] and [place]. This disclosure is being madepursuant to the Care Everywhere program and may not contain all information available regarding this patient. Last updated 18.[facility] Immunizations Name Administration Dates Next Due INFLUENZA VACCINE, HIGH-DOSE , QUADR. (FLUZONE HIGH-DOSE QUADRIVALENT; 65Y+), 0.7 ML (HD-IIV4) 06/19/2020 Social History Tobacco Use Types Packs/Day Years Used Date Smoking Tobacco: Never Assessed Sex and Gender Information Value Date Recorded Sex Assigned at Not on file Gender Identity Not on file Sexual Orientation Not on file Plan of Treatment Not on file Care Teams Hr Leader Relationship Specialty Start Date End Date Clayton Angulo MD [address] [place] [address] PCP - General 11/28/20
--- OUTSIDE RECORDS SUMMARY | 2024-11-13 13:51 | XMS_ITS | Clinical Summary ---
Author Organization [facility] Address [address], [facility] [address] [place] [address] Phone Care Team Providers Care Communications Technician Name Role Phone Clayton Angulo MD Primary Care Provider Allergies Active Allergy Reactions Criticality Noted Date [...] 1:46 PM CDT Height 162.6 cm (5' 4) 05/20/2016 1:46 PM CDT Body Mass Index [...] age to complete this topic Insurance MEDICARE [employer] GENERIC Care Teams Communications Technician Relationship Specialty Start Date End Date Clayton Angulo MD [address] [facility] [address] [place] [address] PCP - General Internal Medicine 05/19/16
--- OUTSIDE RECORDS SUMMARY | 2024-11-13 13:51 | XMS_ITS | Encounter Summary ---
Author Organization [facility] Address [address] [place] [address] Phone Care Team Providers Care Monorail Hooker Name Role Phone Clayton Angulo MD Primary Care Provider [phone] Reason for Visit * Reason Comments Med Refill Encounter Details Date Type Department Care Team (Late st Contact Info) Description 10/05/2020 Refill [facility] Nephrology and Hypertension [facility], [address] [address] iAssatou Wiseman MD [address] [facility], [address] [address] Social History Tobacco Use Types Packs/Day Years [...] on filedocumented in this encounter Care Teams Monorail Hooker Relationship Specialty Start Date End Date Clayton Angulo MD [address] [facility] [place] [id number] PCP - General Internal Medicine 02/26/19 documented as of this encounter
--- OUTSIDE RECORDS SUMMARY | 2024-11-13 13:51 | XMS_ITS | Clinical Summary ---
Author Organization [facility] Address [address] [place] [address] Phone Care Team Providers Care Malt Liquors Sales Representative Name Role Phone Clayton Angulo MD Primary Care Provider [phone] Allergies Active Allergy Reactions Criticality Noted Date [...] Comments Blood Pressure 138/80 08/30/2022 11:05 AM BODY PRESSER Pulse 84 08/30/2022 11:05 AM BODY PRESSER Temperature 34.9 C (94.9 F) 08/30/2022 11:05 AM BODY PRESSER Respiratory Rate - - Oxygen Saturation - - Inhaled Oxygen Concentration - - Weight 75.8 kg (167 lb) 08/30/2022 11:05 AM BODY PRESSER Height 162.6 cm (5' 4) 08/30/2022 11:05 AM BODY PRESSER Body Mass Index 28.67 08/30/2022 11:05 AM BODY PRESSER Plan of Treatment Health Maintenance Due Date Last Done Comments Diabetic Foot Exam 12/01/1950 Ophthalmology Exam 12/01/1950 COVID-19 Vaccine (2023-10 5 season) 2024 11/28/2020, 10/31/2020, 10/24/2019 Influenza Vaccine (#1) 2024 , 06/13/2019, 07/02/2014, Additional history exists Pneumococcal PPSV23/PCV13 65 + Years / High and Highest Risk Completed 09/20/2014, 06/12/2014 Care Teams Malt Liquors Sales Representative Relationship Specialty Start Date End Date Clayton Angulo MD [address] [id number] PCP - General Internal Medicine 02/26/19
--- OUTSIDE RECORDS SUMMARY | 2024-11-13 14:06 | XMS_ITS | Continuity of Care Document ---
Author Organization [facility] Address [address] [place] [address] Dr Jiménez [address] [place] [phone] Phone Care Team Providers Care Stock Parts Fabricator Name Role Phone Marimar Bourne Unavailable Unavailable Procedures Procedure Date Office/outpatient Visit, Est Dilated Retinal Exam W Interpretation No Evidence Of Retinopathy In Prior Year TF Polycarb Sphcyl Hundred To +/-4d .12-2d TF Polycarb Sphcyl Hundred To +/-4d .12-2d Progressive Lens, Polycarb Tint [...] Copied on Encounter Office/outpat ient Visit, Est [facility], [address], [place], [place], [address], [place] tel:[phone] [facility] No Information 0 Tayla [place] [address] [facility] , [address], [place], [address], . tel:[phone] [facility], [address], [place], [place], [address], [place] tel:[phone] [facility] No Information 0 [facility] . [address] [facility], [address], [place], [place], [address], [place]. tel:[phone] Referring Provider: Marimar Garcia, [address], [place], [address]. tel:[phone] [facility], [address], [place], [place], [address], [place] tel:[phone] [facility] No Information 0 Tayla [place] [address] , [address], [place], [address], [place]. tel:[phone] [facility], [address], [place], [place], [address], [place] tel:[phone] [facility] No Information 9 Tayla [place] [address] , [address], [place], [place], [facility], [place]. tel:[phone] [facility], [address] [place] [address] [address], [place], [place], [address], [place] tel:[phone] [facility] No Information Dec-1 0-200 9 Oreilly OD Fredy. [address] , [address], [place], [facility], [place]. tel:[phone] [facility], [address] [place] [address] [address], [place], [place], [address], [place] tel:[phone] [facility] No Information Dec-0 9-200 9 Tayla Minaya. [address] , [address], [place], [facility], [place]. tel:[phone] [facility], [address] [place] [address] [address], [place], [place], [address], [place] tel:[phone] [facility] No Information Dec-0 1-200 9 Tayla Minaya. [address] , [address], [place], [facility], [place]. tel:[phone] Referring Provider: Marimar Garcia, [address], [place], [facility]. tel:[phone] [facility], [address] [place] [address] [address], [place], [place], [address], [place] tel:[phone] [facility] No Information Nov-1 0-200 9 Tayla Minaya. [address] , [address], [place], [facility], [place]. tel:[phone] [facility], [address] [place] [address] [address], [place], [place], [address], [place] tel:[phone] [facility] No Information Nov-0 5-200 9 Tayla [place] [address] , [address], [place], [address], [place]. tel:[phone] [facility], [address], [place], [place], [address], [place] tel:[phone] [facility] No Information Nov-0 4-200 9 Tayla Minaya. [address], [address], [place], [address], [place]. tel:[phone] [facility], [address], [place], [place], [address], [place] tel:[phone] [facility] No Information Oct-2 7-200 9 Tayla Minaya. [address] , [address], [place], [facility], [place]. tel:[phone] Referring Provider: Marimar Garcia, [address], [place], [facility]. tel:[phone] Office/outpat ient Visit, [facility], [address], [place], [place], [address], [place] tel:[phone] [facility] No Information Freddie-0 7-200 9 Tayla Minaya. [address] [facility] , [address], [place], [address], [place]. tel:[phone] Referring Provider: Marimar Garcia, [address], [place], [facility]. tel:[phone] [facility], [address], [place], [place], [address], [place] tel:[phone] [facility] No Information Sep-1 7-200 8 [facility] . [address] [facility], [address], [place], [place], [address], [place]. tel:[phone] Consulting Provider: Chantelle De Souza, [address] [facility], [place], [address]. tel:[phone] [facility], [address], [place], [place], [address], [place] tel:[phone] [facility] No Information 8 Tayla Minaya. [address] [facility] [address], [address], [place], [address], [place]. tel:[phone] [facility], [address], [place], [place], [address], [place] tel:[phone] [facility] No Information 200 8 [employer] . [address] [facility], [address], [place], [place], [address], [place]. tel:[phone] Consulting Provider: Angeles Oliveros, [address] [place] [address], [address]. tel:[phone] [facility], [address], [place], [place], [address], [place] tel:[phone] [facility] No Information 9-200 7 [facility] [employer] . [address] [facility], [address], [place], [place], [address], [place]. tel:[phone] Consulting Provider: Angeles Oliveros, [address] [place] [address], [address]. tel:[phone] [facility], [address], [place], [place], [address], [place] tel:[phone] [facility] No Information 4-200 7 [facility] [employer] . [address] [facility], [address], [place], [address], [place]. tel:[phone] Referring Provider: Marimar Garcia, [address] [facility] [address], [place], [address]. tel:[phone] g Provider: Chantelle De Souza, [address] [place], [address]. tel:[phone] [facility], [address], [place], [place], [address], [place] tel:[phone] [facility] No Information 0-200 7 Bourne Marimar. [address] , [address], [place], [address], [place]. tel:[phone] Family History Family Member Type Diagnosis Age At Onset No Information Payers Payer name Insurance type Covered democrat ID Authoriza tion(s) [place] [id number] [facility] CI [id number] Social History Type Description Quantity Date Captured [...]
[2024-11-13 14:33] LABS: Glucose Point of Care 40 mg/dl (65-105)
[2024-11-13] MEDS: DEXTROSE 10% 1,000 ML 50 ML IV CONT (14:56)
--- NOTE | 2024-11-13 15:30 | P.HP_ITS ---
H&P: HPI History of Present Illness Date/Time: 11/13/24 15:30 Chief Complaint: Hypoglycemia Narrative: Patient is a 83 year old female just recently hospitalized for acute Respiratory failure secondary to pneumonia. Patient has an extensive previous past medical history including CKD stage 4, CVA with residual gait imbalance, secondary hyperparathyroidism, obesity, osteoarthritis, gout, asthma, HLD, non-insulin- dependent diabetes, YAMILKA, HTN, and dementia. patient presented via EMS from her doctor's office at that time she was lethargic and she was found to have a blood sugar of 24 with was immediately brought to the emergency department. Per family patient has not had good oral intake since discharge a few weeks ago. Patient denies any CP, SOB, N/V, dizziness, or ABD pain. Son at bedside reports poor oral intake for the last few days. upon arrival to the emergency department patient's blood sugar was found to be 40 she was given 1 dose oral gel and was IV had been placed she received a total of 37.5 g dextrose 50% and was initiated on a dextrose 10 IV fluids, follow-up blood sugar 123. no viral panel are chest x-ray was completed was ordered and pending this time need to rule out any viral infection since recent hospitalization and check to see pneumonia is cleared. Review of Systems Review of Systems: ROS unobtainable: Yes unobtainable due to endotracheal tube, unobtainable due to medical condition and unobtainable due to mental status PMFSH Past Medical History Medical History Anemia Unintentional weight loss Osteitis pubis Asthma-COPD overlap syndrome Hemoglobin A1c less than 7.0% per pt A1c was 6.7 around Sep 2020 Adenomatous colon polyp Lower abdominal pain Epigastric pain Sleep apnea, unspecified Essential hypertension Type 2 diabetes mellitus Congestive heart failure Ventral incisional hernia Disorder of vitamin B12 Edema Pure hypercholesterolemia Allergic rhinitis GERD (gastroesophageal reflux disease) Asthma Indigestion Contusion of lower leg Gout Fracture of humerus Disorder of rotator cuff Brachial neuritis Neck pain Pain, joint, ankle and foot Shoulder joint pain 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 Generalized osteoarthritis of multiple sites Seronegative spondyloarthropathy (~2016) Surgical History Surgical History History of left cataract extraction History of right cataract extraction Family History Family History Mother Hypertension Unknown Family history of stroke Other Diabetes mellitus Family history of allergic disorder Family history of cardiovascular disease Family history of sleep apnea Social History Social History Smoking status: Never smoker Second hand tobacco smoke exposure: No (PREVIOUSLY, STOPPED SMOKING YEARS AGO) Alcohol intake: never Substance use: never Substance use type: does not use Do You Feel Safe in your Home?: Yes Lack of Transportation: No Lack of Food: Never True Current Housing: I Have Housing Concerned About Future Housing: No Difficulty Paying Gas/Electric Bills: No Difficulty Paying for Meds: No Currently Unemployed: No Education: Don't Know Difficulty w/ Childcare or Family Care: No Living arrangements: with family Occupation/Education: retired Gender identity (if verbalized by the patient): Female Sexual Orientation (if Verbalized by the Patient): Straight or Heterosexual Spiritual care concerns: No Meds Home Medications and Allergies Home Medications ?Medication ?Instructions ?Recorded ?Confirmed ?Type atorvastatin 40 mg tablet 40 mg PO DAILY 09/25/20 11/01/24 History acetaminophen 325 mg tablet 325 mg PO Q4H PRN Mild Pain (1-3) 11/10/24 Rx Or Fever #90 tabs clopidogrel 75 mg tablet 75 mg PO DAILY #30 tabs 11/10/24 Rx escitalopram oxalate 10 mg tablet 10 mg PO DAILY #60 tabs 11/10/24 Rx furosemide 40 mg tablet 40 mg PO DAILY #30 tabs 11/10/24 Rx hydroxyzine HCl 25 mg tablet 25 mg PO Q8H PRN Anxiety #30 tabs 11/10/24 Rx metoprolol tartrate 100 mg tablet 100 mg PO BID #60 tabs 11/10/24 Rx nifedipine 90 mg tablet,extended 90 mg PO DAILY #90 tabs 11/10/24 Rx release pantoprazole 40 mg tablet,delayed 40 mg PO DAILY #30 tabs 11/10/24 Rx release sodium bicarbonate 650 mg tablet 650 mg PO BIDPC #60 tabs 11/10/24 Rx hydralazine 25 mg tablet 25 mg PO TID 11/13/24 11/13/24 History Allergies Allergy/AdvReac Type Severity Reaction Status Date / Time atorvastatin (From Lipitor) Allergy Mild myalgia Verified 11/13/24 07:54 fluvastatin (From Lescol) Allergy Mild Unknown Verified 11/13/24 07:54 pravastatin (From Pravachol) Allergy Mild Unknown Verified 11/13/24 07:54 rosuvastatin (From Crestor) Allergy Mild myalgia Verified 11/13/24 07:54 Penicillins Allergy Unknown Unknown Verified 11/13/24 07:54 iodine AdvReac Intermediate Unknown Verified 11/13/24 07:54 Vital Signs Vital Signs - 24 hr 11/13/24 12:10 11/13/24 12:30 11/13/24 14:27 Pulse Rate 79 65 Respiratory Rate 17 Blood Pressure 137/51 L Pulse Oximetry 95 Oxygen Delivery Room Air Room Air Exam Const: Other: Intubated Eyes: Pupils: Equal, round and reactive pupils present Neck: Neck: supple Resp: Other: Mechanical breath sounds Cardio: Rate: regular rate Rhythm: regular rhythm GI: GI Palp: Yes Soft to palpation Other: Mild distension, no tenderness on deep palpation Extrem: General: no edema H&P: Results Labs Labs: Short CBC 11/13/24 Range/Units 12:44 WBC 8.9 (4.5-10.0) K/mm3 Hgb 9.3 L (12.0-15.0) g/dL Hct 29.4 L (37.0-47.0) % Plt Count 330 (150-375) k/mm3 BMP 11/13/24 12:44 Sodium 141 Potassium 3.6 Chloride 102 Carbon Dioxide 26 BUN 49 H Creatinine 2.22 H Glucose 123 H Calcium 9.0 Cardiac Enzymes 11/13/24 Range/Units 12:44 Troponin I < 0.012 (0.000-0.034) ng/mL Liver Function 11/13/24 Range/Units 12:44 Total Bilirubin 0.4 (0.2-1.3) mg/dL AST 33 (14-36) U/L ALT 23 (6-35) U/L Alkaline Phosphatase 79 (38-126) U/L Albumin 4.1 (3.5-5.1) g/dL Assessment and Plan Assessment and plan (1) Hypoglycemia: Code(s): E16.2 - Hypoglycemia, unspecified Status: Acute Assessment and Plan: Patient hypoglycemic POA at 40 family reporting poor appetite and oral intake * Patient received oral gel and 37.5 Dextrose 50% IVP repeat BS 123 * Dextrose 10 IV fluids * Q6hr glucose monitoring * Not on any diabetic medications * Drug screen pending * COVID/influenza/RSV pending * CXR (2) HTN (hypertension): Code(s): I10 - Essential (primary) hypertension Status: Acute Assessment and Plan: * Resume nifedipine, metoprolol, hydralazine once med rec reconciled * monitor BP per unit protocol * BP reviewed 137/51 (3) Obesity (BMI 30-39.9): Code(s): E66.9 - Obesity, unspecified Status: Acute Assessment and Plan: Obesity * encourage increased on physical activity and lifestyle modifications. * Diet exercise counseling done. * consult to dietitian (4) Chronic kidney disease, stage 4 (severe): Code(s): N18.4 - Chronic kidney disease, stage 4 (severe) Status: Chronic Assessment and Plan: * Stage IV * Cr at baseline * Avoid nephrotoxic drugs. * Monitor antihypertensive drug therapy. * Avoid NSAIDs. * Routine CMP monitoring GFR. * Monitor electrolytes especially potassium. L (5) History of CVA (cerebrovascular accident): Code(s): Z86.73 - Personal history of transient ischemic attack (TIA), and cerebral infarction without residual deficits Status: Acute Assessment and Plan: * resume Plavix and atorvastatin (6) Obstructive sleep apnea: Code(s): G47.33 - Obstructive sleep apnea (adult) (pediatric) Status: Acute (7) Anemia: Code(s): D64.9 - Anemia, unspecified Status: Acute Assessment and Plan: * Chronic likely secodnary to CKD * Hgb stable at 9.3 * monitor * Transfuse PRBC if Hgb <7.0 Plan Code status: Full code per patient DVT prophylaxis: Scd's Stress ulcer prophylaxis: Protonix 40 daily PT/OT notes: PT/OT evalaution Disposition: Patient was admitted to the medical unit for hypoglycemia and poor oral intake. Will monitor overnight and continue Dextrose 10 IV. Viral panel and CXR pending. PT/OT evaluation for discharge planning needs. Quality VTE Prophylaxis VTE prophylaxis: mechanical ordered -Patient's previous records reviewed on admission -ER notes reviewed in detail on admission -discussed all findings and current treatment plan with patient/Family/POA -Consultations reviewed for recommendations -Patient's disposition for safe discharge discussed with telephonic case manager Dictation performed by [employer] direct speech recognition software, therefore weight analyst variants and typographical errors may occur. Hospitalist MIPS Advance Care Plan I have confirmed that the patient's Advanced Care Plan is present, code status is documented, or surrogate decision maker is listed in patient medical record.: Yes Medication Reconciliation I have utilized all available resources to obtain, update and review the patients current medications (includes all prescriptions, OTC, herbals, cannabis, and nutritional supplements).: Yes The patient is not eligible for med reconciliation; the patient is in a emergent medical situation where delaying treatment would jeopardize the patients health.: No
[2024-11-13 16:02] LABS: Glucose Point of Care 101 mg/dl (65-105)
[2024-11-13 16:31] LABS: Influenza A QL RT-PCR Negative (Negative); Influenza B QL RT-PCR Negative (Negative); RSV RNA, RT-PCR Negative (Negative); SARS-CoV-2 RNA PCR Negative (Negative)
[2024-11-13] MEDS: CALCIUM CARBONATE (TUMS) 500 MG (200 MG ELEMENTAL) PO (17:40)
[2024-11-13 17:43] LABS: Glucose Point of Care 85 mg/dl (65-105)
[2024-11-13 18:54] LABS: Glucose Point of Care 109 mg/dl (65-105)
--- NOTE | 2024-11-13 18:57 | ADMGEN ---
This patient, Madyson Giraldo, was admitted to IMU Room 201-01. Patient/family oriented to hospital policies and general routines including ID bracelet, bed and alarms, visiting hours, pain management, procedures, bathroom and other care routines, personal items, smoking policy, room service/diet, and visiting hours. Information on how to activate the Rapid Response Team has been discussed. Patient/Family are encouraged to report perceived risks to care and to ask questions if they do not understand what they are told or what they should do.
[2024-11-13 21:46] LABS: Glucose Point of Care 101 mg/dl (65-105)
[2024-11-14] VITALS (15 sets, daily range): BP systolic 136–182; BP diastolic 51–62; PULSE 72–88; RESP 16–18; TEMP 36.4–36.9; O2SAT 92–100; BMI 25.2
[2024-11-14 01:30] LABS: Glucose Point of Care 104 mg/dl (65-105)
[2024-11-14 04:32] LABS: Glucose Point of Care 109 mg/dl (65-105)
[2024-11-14 04:57] LABS: Basophils Percent Auto 0.4 % (0.2-1.2); Eosinophils Absolute Auto 0.2 K/mm3 (0-0.3); Eosinophils Percent Auto 2.6 % (0-4.4); Hematocrit 26.5 % (37.0-47.0); Hemoglobin 8.4 g/dL (12.0-15.0); Immature Granulocyte Absolute 0.04 K/mm3 (0.00-0.031); Immature Granulocyte Percent A 0.5 % (0-0.5); Lymphocytes Absolute Auto 1.74 K/mm3 (0.9-3.2); Lymphocytes Percent Auto 23.8 % (18.3-44.2); Mean Corpuscular HGB Conc 31.7 g/dl (32-36); Mean Corpuscular Hemoglobin 31.2 pg (26-34); Mean Corpuscular Volume 98.5 fl (80-100); Mean Platelet Volume 11.7 fl (7.4-10.4); Monocytes Absolute Auto 0.7 K/mm3 (0.1-0.6); Monocytes Percent Auto 9.4 % (2.6-8.5); Neutrophils Absolute Auto 4.6 K/mm3 (1.3-6.7); Neutrophils Percent Auto 63.3 % (45.5-73.1); Platelet Count Result 311 k/mm3 (150-375); Red Blood Count 2.69 M/mm3 (4.2-5.4); Red Cell Distribution Width 14.6 % (11.5-14.5); White Blood Count 7.3 K/mm3 (4.5-10.0)
[2024-11-14 05:06] LABS: Alanine Aminotransferase 18 U/L (6-35); Albumin Level 3.5 g/dL (3.5-5.1); Alkaline Phosphatase 73 U/L (38-126); Anion Gap 10 mmol/L (4-12); Aspartate Amino Transferase 24 U/L (14-36); Bilirubin,Total 0.4 mg/dL (0.2-1.3); Blood Urea Nitrogen 45 mg/dL (7-17); Calcium 8.8 mg/dL (8.4-10.2); Carbon Dioxide 27 mmol/L (22-30); Chloride 102 mmol/L (98-107); Estimated CRCL calculation 16 ml/min; Estimated Glomerular Filt Rate 22; Glucose 102 mg/dL (65-110); Potassium 3.9 mmol/L (3.4-5.0); Sodium 139 mmol/L (137-145)
[2024-11-14 06:36] LABS: Glucose Point of Care 115 mg/dl (65-105)
[2024-11-14 07:46] LABS: Glucose Point of Care 117 mg/dl (65-105)
[2024-11-14] MEDS: PANTOPRAZOLE 40 MG TABLET PO (08:47)
[2024-11-14 09:09] LABS: Glucose Point of Care 196 mg/dl (65-105)
--- NOTE | 2024-11-14 09:52 | PC.NURSE ---
Spoke with Dr. Leiva regarding pt's BP and blood sugars. New order to pause D10 drip and recheck sugar 2 hours after pausing drip. I will look into her medications.
[2024-11-14] MEDS: ESCITALOPRAM OXALATE 10 MG TABLET PO (11:12)
[2024-11-14] MEDS: CLOPIDOGREL BISULFATE 75 MG TABLET PO (11:12)
[2024-11-14] MEDS: NIFEdipine 30 MG TAB.ER.24 90 MG PO (11:12)
[2024-11-14 11:41] LABS: Glucose Point of Care 94 mg/dl (65-105)
[2024-11-14] MEDS: hydrALAZINE HCL 25 MG TABLET 50 MG PO ×2 (12:13→17:00)
[2024-11-14 16:20] LABS: Glucose Point of Care 100 mg/dl (65-105)
[2024-11-14 16:43] LABS: Glucose Point of Care 20 mg/dl (65-105)
[2024-11-14] MEDS: SODIUM BICARBONATE TAB 650 MG TABLET PO (17:00)
[2024-11-14] MEDS: METOPROLOL TARTRATE 50 MG TAB 100 MG PO (17:00)
--- NOTE | 2024-11-14 17:35 | P.PNIM_ITS ---
Progress Note: A&P Assessment and Plan (1) Hypoglycemia: Code(s): E16.2 - Hypoglycemia, unspecified Status: Acute Assessment and Plan: Patient hypoglycemic POA at 40 family reporting poor appetite and oral intake * Patient received oral gel and 37.5 Dextrose 50% IVP repeat BS 123 * Dextrose 10 IV fluids * Q6hr glucose monitoring * Not on any diabetic medications * Drug screen pending * COVID/influenza/RSV pending * CXR (2) HTN (hypertension): Code(s): I10 - Essential (primary) hypertension Status: Acute Assessment and Plan: * Resume nifedipine, metoprolol, hydralazine once med rec reconciled * monitor BP per unit protocol * BP reviewed 137/51 (3) Obesity (BMI 30-39.9): Code(s): E66.9 - Obesity, unspecified Status: Acute Assessment and Plan: Obesity * encourage increased on physical activity and lifestyle modifications. * Diet exercise counseling done. * consult to dietitian (4) Chronic kidney disease, stage 4 (severe): Code(s): N18.4 - Chronic kidney disease, stage 4 (severe) Status: Chronic Assessment and Plan: * Stage IV * Cr at baseline * Avoid nephrotoxic drugs. * Monitor antihypertensive drug therapy. * Avoid NSAIDs. * Routine CMP monitoring GFR. * Monitor electrolytes especially potassium. (5) History of CVA (cerebrovascular accident): Code(s): Z86.73 - Personal history of transient ischemic attack (TIA), and cerebral infarction without residual deficits Status: Acute Assessment and Plan: * resume Plavix and atorvastatin (6) Obstructive sleep apnea: Code(s): G47.33 - Obstructive sleep apnea (adult) (pediatric) Status: Acute (7) Anemia: Code(s): D64.9 - Anemia, unspecified Status: Acute Assessment and Plan: * Chronic likely secodnary to CKD * Hgb stable at 9.3 * monitor * Transfuse PRBC if Hgb <7.0 Plan patient with hypoglycemia, only medication she is on is metformin, she should not be taking the medication as her Scr is 2.1, she too the metformin yesterday, patient was give D50 and was placed on D10 IVF and blood sugars were monitored q1hr until this morning and now her blood sugars are close to normal, will stop the D10, will recheck blood sugar q4 and monitor, we have DC metformin and I recommended to her son who is present to not to give metformin, will also instruct patine monitor her blood sugar at home, close to 200 is fine. will di scharge tomorrow. Code status: Full code per patient DVT prophylaxis: Scd's Stress ulcer prophylaxis: Protonix 40 daily PT/OT notes: PT/OT evalaution Disposition: Patient was admitted to the medical unit for hypoglycemia and poor oral intake. Will monitor overnight and continue Dextrose 10 IV. Viral panel and CXR pending. PT/OT evaluation for discharge planning needs. Subjective Date/time seen: 11/14/24 17:35 Interval history: Hypoglycemia H&P-Narrative: Patient is a 83 year old female just recently hospitalized for acute Respiratory failure secondary to pneumonia. Patient has an extensive previous past medical history including CKD stage 4, CVA with residual gait imbalance, secondary hyperparathyroidism, obesity, osteoarthritis, gout, asthma, HLD, qwq-lyqqghv-pkgsfnshs diabetes, YAMILKA, HTN, and dementia. patient presented via EMS from her doctor's office at that time she was lethargic and she was found to have a blood sugar of 24 with was immediately brought to the emergency department. Per family patient has not had good oral intake since discharge a few weeks ago. Patient denies any CP, SOB, N/V, dizziness, or ABD pain. Son at bedside reports poor oral intake for the last few days. upon arrival to the emergency department patient's blood sugar was found to be 40 she was given 1 dose oral gel and was IV had been placed she received a total of 37.5 g dextrose 50% and was initiated on a dextrose 10 IV fluids, follow-up blood sugar 123. no viral panel are chest x-ray was completed was ordered and pending this time need to rule out any viral infection since recent hospitalization and check to see pneumonia is cleared. patient with hypoglycemia, only medication she is on is metformin, she should not be taking the medication as her Scr is 2.1, she too the metformin yesterday, patient was give D50 and was placed on D10 IVF and blood sugars were monitored q1hr until this morning and now her blood sugars are close to normal, will stop the D10, will recheck blood sugar q4 and monitor, we have DC metformin and I recommended to her son who is present to not to give metformin, will also instruct patine monitor her blood sugar at home, close to 200 is fine. will discharge tomorrow. Objective Data Vital Signs Vital Signs: Vital Signs - 24 hr 11/13/24 18:20 11/13/24 19:54 11/13/24 20:00 Temperature 36.6 C 36.7 C Pulse Rate 65 67 67 Respiratory Rate 16 18 Blood Pressure 155/52 H 143/61 H Pulse Oximetry 98 97 Oxygen Delivery Room Air 11/13/24 20:00 11/13/24 22:00 11/13/24 23:51 Temperature 36.6 C Pulse Rate 66 86 80 Respiratory Rate 18 Blood Pressure 131/46 L Pulse Oximetry 95 Oxygen Delivery 11/14/24 00:00 11/14/24 00:00 11/14/24 02:00 Temperature Pulse Rate 74 76 Respiratory Rate Blood Pressure Pulse Oximetry Oxygen Delivery Room Air 11/14/24 03:46 11/14/24 04:00 11/14/24 04:00 Temperature 36.7 C Pulse Rate 80 72 Respiratory Rate 18 Blood Pressure 154/53 H Pulse Oximetry 92 Oxygen Delivery Room Air 11/14/24 06:00 11/14/24 07:33 11/14/24 08:00 Temperature 36.7 C Pulse Rate 78 74 74 Respiratory Rate 16 16 Blood Pressure 182/62 H Pulse Oximetry 98 98 Oxygen Delivery Room Air 11/14/24 08:00 11/14/24 10:00 11/14/24 11:22 Temperature 36.8 C Pulse Rate 88 76 79 Respiratory Rate 16 Blood Pressure 156/51 H Pulse Oximetry 97 Oxygen Delivery 11/14/24 12:00 11/14/24 12:00 11/14/24 15:47 Temperature 36.9 C Pulse Rate 79 88 85 Respiratory Rate 16 18 Blood Pressure 156/57 H Pulse Oximetry 97 98 Oxygen Delivery Room Air 11/14/24 17:00 Temperature Pulse Rate 85 Respiratory Rate Blood Pressure Pulse Oximetry Oxygen Delivery Intake/Output Intake/Output: Intake & Output 11/11/24 11/12/24 11/13/24 11/14/24 23:59 23:59 23:59 23:59 Intake Total 1643.3 Output Total 400 475 Balance -400 1168.3 Meds/Results Medications: Active Medications Generic Name Dose Route Start Last Admin Trade Name Freq PRN Reason Stop Dose Admin Acetaminophen 325 mg 11/14/24 09:59 Acetaminophen 325 Mg Tablet PO Q4H PRN Mild Pain (1-3) Or Fever Calcium Carbonate 200 mg 11/13/24 17:28 11/13/24 17:40 Calcium Carbonate (Tums) 500 Mg (200 Mg Elemental) PO 200 mg Q6H PRN Administration Indigestion Clopidogrel Bisulfate 75 mg 11/14/24 10:35 11/14/24 11:12 Clopidogrel Bisulfate 75 Mg Tablet PO 75 mg DAILY MP Administration Dextrose 12.5 gm 11/13/24 15:28 Dextrose 50% 25 Gm/50 Ml Syringe IV PUSH PRN PRN Hypoglycemia Protocol Escitalopram Oxalate 10 mg 11/14/24 10:35 11/14/24 11:12 Escitalopram Oxalate 10 Mg Tablet PO 10 mg DAILY MP Administration Glucagon 1 mg 11/13/24 15:28 Glucagon For Inj 1 Mg Vial IM PRN PRN Hypoglycemia Protocol Glucose 15 gm 11/13/24 15:28 Glucose Oral Gel 15 Gm Of Glucse In 37.5 Gm Tube PO PRN PRN Hypoglycemia Protocol Hydralazine HCl 50 mg 11/14/24 13:00 11/14/24 17:00 Hydralazine Hcl 25 Mg Tablet PO 50 mg TID MP Administration Hydroxyzine HCl 25 mg 11/14/24 09:59 Hydroxyzine Hcl 25 Mg Tablet PO Q8H PRN Anxiety Dextrose 1,000 mls @ 100 mls/hr 11/13/24 15:28 Dextrose 5% 1,000 Ml IVPB PRN PRN Hypoglycemia Protocol Metformin HCl 500 mg 11/15/24 09:00 Metformin Hcl 500 Mg Tablet PO DAILY [facility] Metoprolol Tartrate 100 mg 11/14/24 17:00 11/14/24 17:00 Metoprolol Tartrate 50 Mg Tab PO 100 mg BID MP Administration Nifedipine 90 mg 11/14/24 10:35 11/14/24 11:12 Nifedipine 30 Mg Tab.Er.24 PO 90 mg DAILY MP Administration Ondansetron HCl 4 mg 11/13/24 15:25 Ondansetron Inj 4 Mg/2 Ml Vial IV PUSH Q6H PRN Nausea And Vomiting Pantoprazole Sodium 40 mg 11/15/24 09:00 Pantoprazole 40 Mg Tablet PO DAILY [facility] Sodium Bicarbonate 650 mg 11/14/24 18:00 11/14/24 17:00 Sodium Bicarbonate Tab 650 Mg Tablet PO 650 mg BIDPC MP Administration Radiology Results: ITS Impressions Chest X-Ray 11/13/24 15:43 IMPRESSION: Moderate pulmonary vascular congestion without focal infiltrate Labs Labs: Laboratory Results - last 24 hr 11/13/24 11/13/24 11/13/24 12:06 17:40 18:49 WBC RBC Hgb Hct MCV MCH MCHC RDW Plt Count MPV Immature Gran % (Auto) Neut % (Auto) Lymph % (Auto) [place] % (Auto) Eos % (Auto) Baso % (Auto) Lymph # (Auto) [place] # (Auto) Eos # (Auto) Baso # (Auto) Abs Immat Gran (auto) Absolute Neuts (auto) Absolute Nucleated RBC Nucleated RBC % Sodium Potassium Chloride Carbon Dioxide Anion Gap BUN Creatinine Estim Creat Clear Calc Estimated GFR Glucose POC Capillary Glucose 20 L* 85 109 H Calcium Total Bilirubin AST ALT Alkaline Phosphatase Total Protein Albumin 11/13/24 11/14/24 11/14/24 21:41 01:27 03:48 WBC RBC Hgb Hct MCV MCH MCHC RDW Plt Count MPV Immature Gran % (Auto) Neut % (Auto) Lymph % (Auto) [place] % (Auto) Eos % (Auto) Baso % (Auto) Lymph # (Auto) [place] # (Auto) Eos # (Auto) Baso # (Auto) Abs Immat Gran (auto) Absolute Neuts (auto) Absolute Nucleated RBC Nucleated RBC % Sodium Potassium Chloride Carbon Dioxide Anion Gap BUN Creatinine Estim Creat Clear Calc Estimated GFR Glucose POC Capillary Glucose 101 104 109 H Calcium Total Bilirubin AST ALT Alkaline Phosphatase Total Protein Albumin 11/14/24 11/14/24 11/14/24 04:13 06:33 07:36 WBC 7.3 RBC 2.69 L Hgb 8.4 L Hct 26.5 L MCV 98.5 MCH 31.2 MCHC 31.7 L RDW 14.6 H Plt Count 311 MPV 11.7 H Immature Gran % (Auto) 0.5 Neut % (Auto) 63.3 Lymph % (Auto) 23.8 [place] % (Auto) 9.4 H Eos % (Auto) 2.6 Baso % (Auto) 0.4 Lymph # (Auto) 1.74 [place] # (Auto) 0.7 H Eos # (Auto) 0.2 Baso # (Auto) 0.0 Abs Immat Gran (auto) 0.04 H Absolute Neuts (auto) 4.6 Absolute Nucleated RBC 0.000 Nucleated RBC % 0.0 Sodium 139 Potassium 3.9 Chloride 102 Carbon Dioxide 27 Anion Gap 10 BUN 45 H Creatinine 2.12 H Estim Creat Clear Calc 16 Estimated GFR 22 L Glucose 102 POC Capillary Glucose 115 H 117 H Calcium 8.8 Total Bilirubin 0.4 AST 24 ALT 18 Alkaline Phosphatase 73 Total Protein 7.0 Albumin 3.5 11/14/24 11/14/24 11/14/24 09:07 11:24 15:49 WBC RBC Hgb Hct MCV MCH MCHC RDW Plt Count MPV Immature Gran % (Auto) Neut % (Auto) Lymph % (Auto) [place] % (Auto) Eos % (Auto) Baso % (Auto) Lymph # (Auto) [place] # (Auto) Eos # (Auto) Baso # (Auto) Abs Immat Gran (auto) Absolute Neuts (auto) Absolute Nucleated RBC Nucleated RBC % Sodium Potassium Chloride Carbon Dioxide Anion Gap BUN Creatinine Estim Creat Clear Calc Estimated GFR Glucose POC Capillary Glucose 196 H 94 100 Calcium Total Bilirubin AST ALT Alkaline Phosphatase Total Protein Albumin Quality VTE Prophylaxis VTE prophylaxis: mechanical ordered
[2024-11-14 20:32] LABS: Glucose Point of Care 113 mg/dl (65-105)
[2024-11-15 04:13] VITALS: BP 147/56; RESP 17; TEMP 36.7; O2SAT 96
[2024-11-15 05:00] LABS: Basophils Absolute Auto 0.1 K/mm3 (0.0-0.1); Basophils Percent Auto 0.7 % (0.2-1.2); Eosinophils Absolute Auto 0.3 K/mm3 (0-0.3); Eosinophils Percent Auto 3.5 % (0-4.4); Hematocrit 28.6 % (37.0-47.0); Immature Granulocyte Absolute 0.04 K/mm3 (0.00-0.031); Immature Granulocyte Percent A 0.5 % (0-0.5); Lymphocytes Absolute Auto 2.12 K/mm3 (0.9-3.2); Lymphocytes Percent Auto 28.3 % (18.3-44.2); Mean Corpuscular HGB Conc 31.5 g/dl (32-36); Mean Corpuscular Hemoglobin 30.7 pg (26-34); Mean Corpuscular Volume 97.6 fl (80-100); Mean Platelet Volume 11.7 fl (7.4-10.4); Monocytes Absolute Auto 0.8 K/mm3 (0.1-0.6); Monocytes Percent Auto 10.4 % (2.6-8.5); Neutrophils Absolute Auto 4.3 K/mm3 (1.3-6.7); Neutrophils Percent Auto 56.6 % (45.5-73.1); Platelet Count Result 345 k/mm3 (150-375); Red Blood Count 2.93 M/mm3 (4.2-5.4); Red Cell Distribution Width 14.3 % (11.5-14.5); White Blood Count 7.5 K/mm3 (4.5-10.0)
[2024-11-15 05:09] LABS: Alanine Aminotransferase 18 U/L (6-35); Albumin Level 3.7 g/dL (3.5-5.1); Alkaline Phosphatase 79 U/L (38-126); Anion Gap 10 mmol/L (4-12); Aspartate Amino Transferase 26 U/L (14-36); Bilirubin,Total 0.4 mg/dL (0.2-1.3); Blood Urea Nitrogen 44 mg/dL (7-17); Calcium 9.1 mg/dL (8.4-10.2); Carbon Dioxide 26 mmol/L (22-30); Chloride 103 mmol/L (98-107); Estimated CRCL calculation 16 ml/min; Estimated Glomerular Filt Rate 23; Glucose 97 mg/dL (65-110); Sodium 139 mmol/L (137-145)
[2024-11-15 05:31] LABS: Hemoglobin A1C 5.1 % (<5.7)
[2024-11-15 07:52] LABS: Glucose Point of Care 97 mg/dl (65-105)
[2024-11-15 07:55] VITALS: BP 175/58; PULSE 74; RESP 16; TEMP 36.8; O2SAT 99
[2024-11-15 08:00] VITALS: PULSE 74; RESP 16; O2SAT 99
[2024-11-15 08:16] VITALS: PULSE 74
[2024-11-15] MEDS: NIFEdipine 30 MG TAB.ER.24 90 MG PO (08:16)
[2024-11-15] MEDS: PANTOPRAZOLE 40 MG TABLET PO (08:16)
[2024-11-15] MEDS: METOPROLOL TARTRATE 50 MG TAB 100 MG PO (08:16)
[2024-11-15] MEDS: SODIUM BICARBONATE TAB 650 MG TABLET PO (08:16)
[2024-11-15] MEDS: CLOPIDOGREL BISULFATE 75 MG TABLET PO (08:16)
[2024-11-15] MEDS: ESCITALOPRAM OXALATE 10 MG TABLET PO (08:16)
[2024-11-15] MEDS: hydrALAZINE HCL 25 MG TABLET 50 MG PO ×2 (08:16→13:00)
[2024-11-15 10:36] VITALS: O2SAT 98
[2024-11-15 11:48] LABS: Glucose Point of Care 75 mg/dl (65-105)
[2024-11-15 12:00] VITALS: BP 165/46; PULSE 100; RESP 18; TEMP 36.8; O2SAT 100
--- NOTE | 2024-11-15 15:10 | P.DS_ITS ---
DS: Admitting Diagnosis Discharge Date 11/15/24 Admitting Diagnosis Hypoglycemia DS: Discharge Diagnosis Discharge Diagnosis (1) Hypoglycemia: Code(s): E16.2 - Hypoglycemia, unspecified Status: Acute Assessment and Plan: Patient hypoglycemic POA at 40 family reporting poor appetite and oral intake * Patient received oral gel and 37.5 Dextrose 50% IVP repeat BS 123 * Dextrose 10 IV fluids * Q6hr glucose monitoring * Not on any diabetic medications * Drug screen pending * COVID/influenza/RSV pending * CXR (2) HTN (hypertension): Code(s): I10 - Essential (primary) hypertension Status: Acute Assessment and Plan: * Resume nifedipine, metoprolol, hydralazine once med rec reconciled * monitor BP per unit protocol * BP reviewed 137/51 (3) Obesity (BMI 30-39.9): Code(s): E66.9 - Obesity, unspecified Status: Acute Assessment and Plan: Obesity * encourage increased on physical activity and lifestyle modifications. * Diet exercise counseling done. * consult to dietitian (4) Chronic kidney disease, stage 4 (severe): Code(s): N18.4 - Chronic kidney disease, stage 4 (severe) Status: Chronic Assessment and Plan: * Stage IV * Cr at baseline * Avoid nephrotoxic drugs. * Monitor antihypertensive drug therapy. * Avoid NSAIDs. * Routine CMP monitoring GFR. * Monitor electrolytes especially potassium. (5) History of CVA (cerebrovascular accident): Code(s): Z86.73 - Personal history of transient ischemic attack (TIA), and cerebral infarction without residual deficits Status: Acute Assessment and Plan: * resume Plavix and atorvastatin (6) Obstructive sleep apnea: Code(s): G47.33 - Obstructive sleep apnea (adult) (pediatric) Status: Acute (7) Anemia: Code(s): D64.9 - Anemia, unspecified Status: Acute Assessment and Plan: * Chronic likely secodnary to CKD * Hgb stable at 9.3 * monitor * Transfuse PRBC if Hgb <7.0 DS: Summary Hospital Course Hospital Course: patient with hypoglycemia, only medication she is on is metformin, she should not be taking the medication as her Scr is 2.1, she too the metformin yesterday, patient was give D50 and was placed on D10 IVF and blood sugars were monitored q1hr until this morning and now her blood sugars are close to normal, will stop the D10, will recheck blood sugar q4 and monitor, we have DC metformin and I recommended to her son who is present to not to give metformin, will also instruct patine monitor her blood sugar at home, close to 200 is fine. patient blood sugars are closed to normal, patient is instructed not take metformin. Time Spent with Patient Time attestation: Total time spent providing and/or coordinating discharge services: Exam Narrative: Patient is comfortable, NAD HEENT: eyes are clear and none icteric LUNGS:CTA HEART: RR S1S2 ABD: BS+, Soft and nontender Lower extremities: no edema SKIN: nonjaundiced Neuro: grossly intact. DS: Data Data Completed and Pending Labs on day of discharge: Labs from last 24 hours 11/15/24 11/15/24 11/15/24 11:45 07:48 03:56 WBC 7.5 RBC 2.93 L Hgb 9.0 L Hct 28.6 L MCV 97.6 MCH 30.7 MCHC 31.5 L RDW 14.3 Plt Count 345 MPV 11.7 H Immature Gran % (Auto) 0.5 Neut % (Auto) 56.6 Lymph % (Auto) 28.3 [place] % (Auto) 10.4 H Eos % (Auto) 3.5 Baso % (Auto) 0.7 Lymph # (Auto) 2.12 [place] # (Auto) 0.8 H Eos # (Auto) 0.3 Baso # (Auto) 0.1 Abs Immat Gran (auto) 0.04 H Absolute Neuts (auto) 4.3 Absolute Nucleated RBC 0.000 Nucleated RBC % 0.0 Sodium 139 Potassium 4.0 Chloride 103 Carbon Dioxide 26 Anion Gap 10 BUN 44 H Creatinine 2.02 H Estim Creat Clear Calc 16 Estimated GFR 23 L Glucose 97 POC Capillary Glucose 75 97 Hemoglobin A1c 5.1 Calcium 9.1 Magnesium 2.0 Total Bilirubin 0.4 AST 26 ALT 18 Alkaline Phosphatase 79 Total Protein 7.0 Albumin 3.7 11/14/24 11/14/24 11/13/24 20:25 15:49 12:06 WBC RBC Hgb Hct MCV MCH MCHC RDW Plt Count MPV Immature Gran % (Auto) Neut % (Auto) Lymph % (Auto) [place] % (Auto) Eos % (Auto) Baso % (Auto) Lymph # (Auto) [place] # (Auto) Eos # (Auto) Baso # (Auto) Abs Immat Gran (auto) Absolute Neuts (auto) Absolute Nucleated RBC Nucleated RBC % Sodium Potassium Chloride Carbon Dioxide Anion Gap BUN Creatinine Estim Creat Clear Calc Estimated GFR Glucose POC Capillary Glucose 113 H 100 20 L* Hemoglobin A1c Calcium Magnesium Total Bilirubin AST ALT Alkaline Phosphatase Total Protein Albumin Discharge Plan Discharge Attending physician on discharge: Anthony Montes Consulting providers: Gretel Hope; Diandra Deleon; Ashley Lunsford Discharging Clinician: Lindy Leiva Patient Disposition: Home Health Service Activity: as tolerated Diet: heart healthy and diabetic Discharge Instructions: [facility] and [facility]OT/ST eval and treat. [facility] can be contacted at [phone]. Nursing please fax discharge paperwork to [phone]. patient is instructed not to take metformin, monitor blood, keep the blood sugars between 100 and 200, avoid sweets, bread, pasta, and heavy meals, eat more fruits, vegetable and fibers. follow up with primary care provider as soon as possible, if any symptoms redevelop to go to nearest ER. Patient Instructions: Hypoglycemia in a Person with Diabetes (GEN) Patient Language: Haitian Stand Alone Forms: General Discharge Information Follow-up/Referrals: Kev,Clayton Paniagua MD [Primary Care Provider] - Discharge Medications: New (DME) blood-glucose meter [OneTouch Verio Flex meter] [facility] [place]ty: 1 0RF Rx Instructions: May substitute to in-stock meter and/or covered by insurance. Use As Directed (DME) OneTouch Verio test strips Strip Qty: 1 0RF Rx Instructions: May substitute to in-stock and/or covered by insurance strips. Use As Directed (DME) lancets [OneTouch Delica Plus Lancet] 30 gauge misc Qty: 1 0RF Rx Instructions: May substitute to in-stock and/or covered by insurance lancets. Use As Directed calcium carbonate 500 mg calcium (1,250 mg) Tablet,Chewable 200 mg PO Q6H PRN (Reason: Indigestion) Qty: 30 0RF dextrose [Glutose-15] 40 % Gel 15 g PO PRN PRN (Reason: Hypoglycemia) Qty: 112.5 0RF Continued atorvastatin 40 mg tablet 40 mg PO DAILY Patient Comments: Per medication list, pt to resume 11/18/2024. Medication also listed as an allergy for pt. hydralazine 25 mg tablet 50 mg PO TID acetaminophen 325 mg Tablet 325 mg PO Q4H PRN (Reason: Mild Pain (1-3) Or Fever) Qty: 90 0RF furosemide 40 mg Tablet 40 mg PO DAILY Qty: 30 0RF hydroxyzine HCl 25 mg Tablet 25 mg PO Q8H PRN (Reason: Anxiety) Qty: 30 0RF nifedipine 90 mg tablet extended release 90 mg PO DAILY Qty: 90 3RF clopidogrel 75 mg tablet 75 mg PO DAILY Qty: 30 0RF sodium bicarbonate 650 mg Tablet 650 mg PO BIDPC Qty: 60 0RF pantoprazole 40 mg Tablet,Delayed Release (Dr/Ec) 40 mg PO DAILY Qty: 30 0RF escitalopram oxalate 10 mg tablet 10 mg PO DAILY Qty: 60 0RF Discontinued metformin 500 mg tablet 500 mg PO DAILY No Action irbesartan 300 mg tablet 300 mg PO DAILY metoprolol tartrate 100 mg tablet See Rx Instructions .ROUTE .COMPLEX Qty: 180 3RF Dose Instruction: TAKE 1 TABLET BY MOUTH TWICE DAILY Rx Instructions: TAKE 1 TABLET BY MOUTH TWICE DAILY Date of admission: 11/14/24 16:24 Primary Care Provider: Kev,Clayton Paniagua Admitting Provider: Anthony Montes Attending physician on admission: Lindy Leiva Condition: Stable
--- NOTE | 2024-11-16 14:23 | PCCDE ---
11/16/24 14:15 Pt admitted hypoglycemia H/O CKD stage 4, CVA with residual gait imbalance, secondary hyperparathyroidism, obesity, osteoarthritis, gout, asthma, HLD, lal-[id number]-fexibbrwo diabetes, YAMILKA, HTN, and Dementia. Per DC provider note: Pt to dc Metformin at home due to renal fxn. DM Courtesy follow up call. Spoke with son, Camacho who reports they DC'd the Metformin and have PCP appt 11/20. Denies DM questions. Appreciates follow up and education provided at hospital. ROSALINDA
== END 2024-11-15 15:57 | disposition home health service (06) | DRG 638 ==
LOC: ANHED 16:02 → ANHIMU 17:29 → ANH3MEDSUR 11-16 15:58 → ANHIMU 11-16 15:58
PROVIDERS: Nurse Practitioner Family; Admitting Provider Internal Medicine; Emergency Provider Emergency Medicine; PCP Internal Medicine; Visit Provider Family Medicine
DX: E11.649 Type 2 diabetes mellitus with hypoglycemia without coma (principal); I13.0 Hypertensive heart and chronic kidney disease with heart failure and stage 1 through stage 4 chronic kidney disease, or unspecified chronic kidney disease; I50.9 Heart failure, unspecified; N18.4 Chronic kidney disease, stage 4 (severe); E11.22 Type 2 diabetes mellitus with diabetic chronic kidney disease; J44.9 Chronic obstructive pulmonary disease, unspecified; D64.9 Anemia, unspecified; E78.00 Pure hypercholesterolemia, unspecified; E21.3 Hyperparathyroidism, unspecified; K21.9 Gastro-esophageal reflux disease without esophagitis; M15.9 Polyosteoarthritis, unspecified; G47.30 Sleep apnea, unspecified; F03.90 Unspecified dementia, unspecified severity, without behavioral disturbance, psychotic disturbance, mood disturbance, and anxiety; Z20.822 Contact with and (suspected) exposure to COVID-19; R26.89 Other abnormalities of gait and mobility; I69.398 Other sequelae of cerebral infarction; Z86.0101 Personal history of adenomatous and serrated colon polyps; Z79.02 Long term (current) use of antithrombotics/antiplatelets
CPT/HCPCS: 36415; 71045; 80053; 82077; 82948; 83036; 83735; 84484; 85025; 87637; 93005; 96366; 96374; 96375; 99285; A9270; G0378

== ENCOUNTER 2025-06-12 09:46 | Inpatient (IN) | payer MEDICARE, SELFPAY ==
--- OUTSIDE RECORDS SUMMARY | 2010-04-07 10:15 | XMS_ITS | Continuity of Care Document ---
Author Organization [facility] Address [address] [place] [address] Dr Jiménez [address] [place] [phone] Phone Care Team Providers Care Accounts Collector Name Role Phone Marimar Bourne Unavailable Unavailable Procedures Procedure Date Office/outpatient Visit, Est Dilated Retinal Exam W Interpretation No Evidence Of Retinopathy In Prior Year TF Polycarb Sphcyl Creighton To +/-4d .12-2d TF Polycarb Sphcyl Creighton To +/-4d .12-2d Progressive Lens, Polycarb Tint Photochromatic, Polycarb 0 Anti-reflective Coating Polycarb Lens Per Lens Post-op Follow-up Visit Post-op Follow-up Visit Post-op Follow-up Visit Remove Cataract, Insert Lens PreOp Assessment Performed Post-op Follow-up Visit [facility] Post-op Follow-up Visit Post-op Follow-up Visit Remove Cataract, Insert Lens PreOp Assessment Performed Eye Exam & Treatment [facility] Office/outpatient Visit, Est Dilated Retinal Exam W Interpretation Ju [facility] [employer] Purchases Progressive Lens, Plastic Tint Photochromatic, Plastic Eye Exam & Treatment Dilated Retinal Exam W Interpretation Ju Anti-reflective Coating Progressive Lens Per Lens [facility] [employer] Purchases Progressive Lens, Polycarb Tint Photochromatic, Polycarb 7 Anti-reflective Coating Tax - Medical Eye Exam & Treatment Refraction Advance Directives Directive Yes / No Effective Date File Name No Information Encounters Encounter Description Practice Location Reason(s) For Visit Diagnoses Date Provider Providers Copied on Encounter Office/outpat ient Visit, Est Formerly [facility], [address], [place], [place], [id number], [place] tel:[phone] [facility] No Information 0 Tayla Colorado [address] , [address], [place], [address], . tel:[phone] Formerly [facility], [address], [place], [place], [id number], [place] tel:[phone] [facility] No Information 0 [facility] . [address], [address], [place], [place], [id number], [place]. tel:[phone] Referring Provider: Marimar Garcia, [address], [place], [address]. tel:[phone] Formerly [facility], [address], [place], [place], [address], [place] tel:[phone] [facility] No Information 0 Talya [place] [address] , [address], [place], [address], [place]. tel:[phone] Formerly [facility], [address], [place], [place], [address], [place] tel:[phone] [facility] No Information 9 Tayla Colorado [address] , [address], [place], [facility], [place]. tel:[phone] [facility], [address] [place] [address] [address], [place], [place], [id number], [place] tel:[phone] [facility] No Information Dec-1 0-200 9 Oreilly OD Fredy. [address] , [address], [place], [facility], [place]. tel:[phone] [facility], [address] [place] [address] [address], [place], [place], [address], [place] tel:[phone] [facility] No Information Dec-0 9-200 9 Tayla Minaya. [address] , [address], [place], [facility], [place]. tel:[phone] [facility], [address] [place] [address] [address], [place], [place], [address], [place] tel:[phone] [facility] No Information Dec-0 1-200 9 Tayla Minaya. [address] , [address], [place], [facility], [place]. tel:[phone] Referring Provider: Marimar Garcia, [address], [place], [facility]. tel:[phone] [facility], [address] [place] [address] [address], [place], [place], [address], [place] tel:[phone] [facility] No Information Nov-1 0-200 9 Tayla Minaya. [address] , [address], [place], [facility], [place]. tel:[phone] [facility], [address] [place] [address] [address], [place], [place], [address], [place] tel:[phone] [facility] No Information Nov-0 5-200 9 Tayla [place] [address] , [address], [place], [address], [place]. tel:[phone] [facility], [address], [place], [place], [address], [place] tel:[phone] [facility] No Information Nov-0 4-200 9 Tayla Minaya. [address], [place], [address], [place]. tel:[phone] [facility], [address], [place], [place], [address], [place] tel:[phone] [facility] No Information Oct-2 7-200 9 Tayla Minaya. [address] , [address], [place], [facility], [place]. tel:[phone] Referring Provider: Marimar Garcia, [address], [place], [facility]. tel:[phone] Office/outpat ient Visit, [facility], [address], [place], [place], [address], [place] tel:[phone] [facility] No Information Freddie-0 7-200 9 Tayla Minaya. [address] , [address], [place], [address], [place]. tel:[phone] Referring Provider: Marimar Garcia, [address], [place], [facility]. tel:[phone] [facility], [address], [place], [place], [address], [place] tel:[phone] [facility] No Information Sep-1 7-200 8 [facility] . [address], [address], [place], [place], [address], [place]. tel:[phone] Consulting Provider: Chantelle De Souza, [address] [facility] [address], [place], [address]. tel:[phone] [facility], [address], [place], [place], [address], [place] tel:[phone] [facility] No Information 8 Tayla Minaya. [address], [place], [address], [place]. tel:[phone] [facility], [address], [place], [place], [address], [place] tel:[phone] [facility] No Information 200 8 [facility] . [address], [address], [place], [place], [address], [place]. tel:[phone] Consulting Provider: Angeles Oliveros, [address] [place] [address], [address]. tel:[phone] [facility], [address], [place], [place], [address], [place] tel:[phone] [facility] No Information 9-200 7 [facility] . [address], [address], [place], [place], [address], [place]. tel:[phone] Consulting Provider: Angeles Oliveros, [address] [place] [address], [address]. tel:[phone] [facility], [address], [place], [place], [address], [place] tel:[phone] [facility] No Information 4-200 7 [facility] . [address], [address], [place], [address], [place]. tel:[phone] Referring Provider: Marimar Garcia, [address], [place], [address]. tel:[phone] g Provider: Chantelle De Souza, [address] [place], [address]. tel:[phone] [facility], [address], [place], [place], [address], [place] tel:[phone] [facility] No Information 0-200 7 Bourne Marmiar. [address], [place], [address], [place]. tel:[phone] Family History Family Member Type Diagnosis Age At Onset No Information Payers Payer name Insurance type Covered democrat ID Authoriza tion(s) [place] [id number] [facility] CI [id number] Social History Type Description Quantity Date Captured Comments Sex Female Smoking Status No Information Chief Complaint And Reason For Visit No Information Reason For Referral Reason For Referral No Information History Of Present Illness Encounter Date Complaint History Of Prese nt Illness No Information Functional Status Date Functional Assessmen t No Information Instructions Date Instruction Additional Infor mation No Information Assessments Type Assessment Date No Information Patient Care Teams Name Effective Dates (start - stop) Status Members No Information
[2025-06-12] VITALS (29 sets, daily range): BP systolic 149–201; BP diastolic 60–109; PULSE 68–122; RESP 14–36; TEMP 36.6–36.7; O2SAT 89–100; BMI 26.9
--- NOTE | ~2025-06-12 | XR_ITS ---
EXAMINATION: XR chest 2V, 06/12/2025 10:02 CDT HISTORY: sob COMPARISON: No comparisons available. Technique: 2 views obtained. Findings: Moderate pulmonary venous congestion. Small basilar infiltrates and effusions. No pneumothorax. Moderate cardiomegaly. Mediastinal and hilar contours are within normal limits. Bony thorax no acute abnormality. Impression: CHF. Superimposed probable pneumonia Reviewed, dictated and finalized at location P. Impression: CHF. Superimposed probable pneumonia
--- NOTE | 2025-06-12 09:50 | ECG_ITS ---
Test Date: 2025-06-12 09:54:05 Measurements Intervals [place] Rate: 127 P: 49 [place]: 139 QRS: 13 QRSD: 101 T: 110 QT: 270 QTc: 393 Interpretive Statements SINUS TACHYCARDIA WITH OCCASIONAL VENTRICULAR PREMATURE COMPLEXES NONSPECIFIC ST & T-WAVE ABNORMALITY- INF/LAT LEADS BASELINE ARTIFACT- I, II, III, AVR, AVL, AVF, V1-V6 ABNORMAL ECG Compared to ECG 11/13/2024 14:41:39 HEART RATE HAS INCREASED Electronically Signed On 06-12-2025 11:02:51 CDT by Darryl Cline D.O.
--- NOTE | 2025-06-12 10:03 | ED_ITS ---
HPI - SOB/Dyspnea General Chief Complaint: Shortness of Breath/Dyspnea <Maggie Hogan PA-C - Last Filed: 06/12/25 13:06> Stated Complaint: SOB <NINA Matos Last Filed: 06/12/25 13:06> Time Seen by Provider: 06/12/25 09:54 <NINA Matos Last Filed: 06/12/25 13:06> Source: patient and family <NINA Matos Last Filed: 06/12/25 13:06> Mode of arrival: ambulatory <NINA Matos Last Filed: 06/12/25 13:06> Limitations: no limitations <NINA Matos Last Filed: 06/12/25 13:06> History of Present Illness HPI Narrative: Patient is an 84-year-old female, with PMH of anemia, CHF, DM, who presents the ED with report of shortness of breath. Patient reports she has been feeling increasing short of breath for the past 1 week, symptoms became much worse last night into this morning. Has had wheezing, feeling very short of breath, worse with exertion, mild cough. Has had increased swelling in lower extremitities. Sons at bedside report the patient was taken off her lasix therapy in March. They are unsure why. She was supposed to receive SCD devices to help with swelling, but has not received these. Denies fevers. Denies chest pain. <NINA Matos Last Filed: 06/12/25 13:06> Related Data Home Medications: Home Medications ?Medication ?Instructions ?Recorded ?Confirmed ?Last Taken ?Type ergocalciferol (vitamin D2) 1,250 50,000 unit PO WEEKL Y 06/12/25 06/12/25 06/11/25 History mcg (50,000 unit) capsule quetiapine 25 mg tablet 25 mg PO BID 06/12/2506/11/25 History vitamin D3 125 mcg (5,000 1 cap PO DAILY 06/12/2510/0606/11/25 History unit)-vitamin K2 180 mcg capsule <NINA Matos Last Filed: 06/12/25 13:06> Allergies/Adverse Reactions: Allergies Allergy/AdvReac Type Severity Reaction Status Date / Time atorvastatin (From Lipitor) Allergy Mild myalgia Verified 06/12/25 14:36 fluvastatin (From Lescol) Allergy Mild Unknown Verified 06/12/25 14:36 pravastatin (From Pravachol) Allergy Mild Unknown Verified 06/12/25 14:36 rosuvastatin (From Crestor) Allergy Mild myalgia Verified 06/12/25 14:36 Penicillins Allergy Unknown Unknown Verified 06/12/25 14:36 iodine AdvReac Intermediate Unknown Verified 06/12/25 14:36 <NINA Matos Last Filed: 06/12/25 13:06> Review of Systems 2 Review of Systems: All systems reviewed & are unremarkable except as noted in HPI. <NINA Matos Last Filed: 06/12/25 13:06> All systems reviewed & are unremarkable except as noted in HPI and below < INNA Matos Last Filed: 06/12/25 13:06> [facility] Past Medical History Medical History: Medical History (Updated 06/12/25 @ 14:02 by Flora Perez APRN) Obstructive sleep apnea Previously noncompliant with CPAP History of CVA (cerebrovascular accident) (~11/2023) Chronic kidney disease, stage 4 (severe) Anxiety and depression History of shingles Tuberculosis Age 16 Myocardial infarction (~2015) Alzheimer's dementia Anemia Unintentional weight loss Osteitis pubis Asthma-COPD overlap syndrome Hemoglobin A1c less than 7.0% 6.7% 09/2020 5.1% 11/2024 Adenomatous colon polyp Essential hypertension Type 2 diabetes mellitus Congestive heart failure Ventral incisional hernia Disorder of vitamin B12 Edema Pure hypercholesterolemia Allergic rhinitis GERD (gastroesophageal reflux disease) Gout Fracture of humerus Disorder of rotator cuff 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 Generalized osteoarthritis of multiple sites Seronegative spondyloarthropathy (~2016) <NINA Matos Last Filed: 06/12/25 13:06> Surgical History Surgical History: Surgical History History of left cataract extraction History of right cataract extraction <Maggie Hogan PA-C - Last Filed: 06/12/25 13:06> Family History Family History: Family History Mother Hypertension Unknown Family history of stroke Other Diabetes mellitus Family history of allergic disorder Family history of cardiovascular disease Family history of sleep apnea <Maggie Hogan PA-C - Last Filed: 06/12/25 13:06> Social History Social History: Social History Smoking status: Never smoker Tobacco type: cigarettes Second hand tobacco smoke exposure: No Alcohol intake: never Substance use: never Substance use type: does not use Do You Feel Safe in your Home?: Yes Lack of Transportation: No Lack of Food: Never True Current Housing: I Have Housing Concerned About Future Housing: No Difficulty Paying Gas/Electric Bills: No Difficulty Paying for Meds: No Currently Unemployed: No Education: High School Diploma/GED Difficulty w/ Childcare or Family Care: No Living arrangements: with family Occupation/Education: retired Gender identity (if verbalized by the patient): Female Sexual Orientation (if Verbalized by the Patient): Straight or Heterosexual Spiritual care concerns: No <Maggie Hogan PA-C - Last Filed: 06/12/25 13:06> Exam 2 Narrative: GENERAL: Ill appearing, in moderate acute respiratory distress. HEAD: Normocephalic, atraumatic. RESPIRATORY: Airway patent, respirations tachypneic and labored, accessory muscle use. Only able to speak few words at a time. Decreased air movement throughout. Diffuse expiratory wheezing with rhonchi in all lung michel. Decreased lung sounds in [place]. CARDIOVASCULAR: Tachycardic with regular rhythm without murmurs, rubs, or gallops. Peripheral pulses intact MUSCULOSKELETAL: Moves all extremities. No gross deformities. Diffuse pitting edema throughout bilateral feet, ankles, lower legs. SKIN: Warm, dry, normal color. NEURO: Alert. Speech clear. Cranial nerves II-XII grossly intact. No ataxic movements. PSYCHIATRIC: Appropriate mood and affect. Normal interaction. <Maggie Hogan PA-C - Last Filed: 06/12/25 13:06> Course BIZTALK ADMINISTRATOR/PA Physician Supervision This visit was performed by both a physician and an APC. I performed all aspects of the MDM as documented. <Alejo Nolan MD - Last Filed: 06/12/25 18:24> Vital Signs Vital signs: Vital Signs Pulse Oximetry 95 06/12/25 09:50 Oxygen Delivery Nasal Cannula 06/12/25 09:50 Oxygen Flow Rate 2 06/12/25 09:50 Temperature 98 F 06/12/25 16:00 Pulse Rate 82 06/12/25 18:00 Respiratory Rate 22 H 06/12/25 16:06 Blood Pressure 167/71 H 06/12/25 16:00 Pulse Oximetry 98 06/12/25 16:06 Oxygen Delivery BiPAP 06/12/25 16:06 Oxygen Flow Rate 2 06/12/25 09:50 <Maggie Hogan PA-C - Last Filed: 06/12/25 13:06> Vital Signs Pulse Oximetry 95 06/12/25 09:50 Oxygen Delivery Nasal Cannula 06/12/25 09:50 Oxygen Flow Rate 2 06/12/25 09:50 Temperature 98 F 06/12/25 16:00 Pulse Rate 82 06/12/25 18:00 Respiratory Rate 22 H 06/12/25 16:06 Blood Pressure 167/71 H 06/12/25 16:00 Pulse Oximetry 98 06/12/25 16:06 Oxygen Delivery BiPAP 06/12/25 16:06 Oxygen Flow Rate 2 06/12/25 09:50 <Alejo Nolan MD - Last Filed: 06/12/25 18:24> MDM - SOB/Dyspnea MDM Narrative Medical decision making narrative: Patient presented to ED with shortness breath, wheezing. In acute respiratory distress. Marked respiratory effort, tachypnea, labored breathing with accessory muscle use, diffuse rhonchi and wheezing. Patient hypoxic down to 88-89% O2. Placed on 2 L nasal cannula. No previous oxygen requirement. BP was elevated to 235/105. Concerning for flash pulmonary edema. Patient started on bipap with continuous neb treatment, given 40mg IV lasix, NTG paste. ABG with pH of 7.196. PCO2 normal at 38. Bicarb low at 14.5. EKG with sinus tachycardia, nonspecific ST changes. Baseline troponin 0.022 BNP markedly elevated to 15,300 Chest x-ray consistent with CHF with possible superimposed pneumonia Blood cultures obtained. Patient started on Rocephin and azithromycin Cbc with white blood cell count of 11.8. Hemoglobin 7.3. Has been similarly low in the past. Patient does have history of chronic anemia. Normocytic. Normal platelets. CMP with bicarb of 13, anion gap of 15. Blood sugar 244. She is a known diabetic, not currently on insulin therapy Creatinine 2.52. Slightly increased from baseline around 2. Viral swabs negative On re-evaluation, patient looking remarkably improved on BiPAP. Work of breathing is significantly improved. Vital signs have normalized completely. Will be admitted for continued evaluation, iv abx, diuresis. Discussed case with Flora Perez NP hospitalist accepted patient for admission. Patient and family in agreement with plan. <Maggie Hogan PA-C - Last Filed: 06/12/25 13:06> Patient presented to ED with shortness breath, wheezing. In acute respiratory distress. Marked respiratory effort, tachypnea, labored breathing with accessory muscle use, diffuse rhonchi and wheezing. Patient hypoxic down to 88-89% O2. Placed on 2 L nasal cannula. No previous oxygen requirement. BP was elevated to 235/105. Concerning for flash pulmonary edema. Patient started on bipap with continuous neb treatment, given 40mg IV lasix, NTG paste. ABG with pH of 7.196. PCO2 normal at 38. Bicarb low at 14.5. EKG with sinus tachycardia, nonspecific ST changes. Baseline troponin 0.022 BNP markedly elevated to 15,300 Chest x-ray consistent with CHF with possible superimposed pneumonia Blood cultures obtained. Patient started on Rocephin and azithromycin Cbc with white blood cell count of 11.8. Hemoglobin 7.3. Has been similarly low in the past. Patient does have history of chronic anemia. Normocytic. Normal platelets. CMP with bicarb of 13, anion gap of 15. Blood sugar 244. She is a known diabetic, not currently on insulin therapy Creatinine 2.52. Slightly increased from baseline around 2. Viral swabs negative On re-evaluation, patient looking remarkably improved on BiPAP. Work of breathing is significantly improved. Vital signs have normalized completely. Will be admitted for continued evaluation, iv abx, diuresis. Discussed case with Flora Perez NP hospitalist accepted patient for admission. Patient and family in agreement with plan. -- This visit was performed by both a physician and an APC. I performed all aspects of the MDM as documented. <Alejo Nolan MD - Last Filed: 06/12/25 18:24> Medical Records Attestation: I reviewed the patient's medical records. <Maggie Hogan PA-C - Last Filed: 06/12/25 13:06> Lab Data Attestation: I reviewed the patient's lab results. <Maggie Hogan PA-C - Last Filed: 06/12/25 13:06> Result diagrams: 06/12/25 10:02 06/12/25 10:02 <Maggie Hogan PA-C - Last Filed: 06/12/25 13:06> Labs: Lab Results 06/12/25 06/12/25 06/12/25 Range/Units 10:02 10:12 10:15 WBC 11.8 H (4.5-10.0) K/mm3 RBC 2.69 L (4.2-5.4) M/mm3 Hgb 7.3 L (12.0-15.0) g/dL Hct 24.9 L (37.0-47.0) % MCV 92.6 (80-100) fl MCH 27.1 (26-34) pg MCHC 29.3 L (32-36) g/dl RDW 17.8 H (11.5-14.5) % Plt Count 336 (150-375) k/mm3 MPV 11.1 H (7.4-10.4) fl Immature Gran % (Auto) 0.5 (0-0.5) % Neut % (Auto) 60.0 (45.5-73.1) % Lymph % (Auto) 32.9 (18.3-44.2) % Drew % (Auto) 5.2 (2.6-8.5) % Eos % (Auto) 0.8 (0-4.4) % Baso % (Auto) 0.6 (0.2-1.2) % Lymph # (Auto) 3.90 H (0.9-3.2) K/mm3 Drew # (Auto) 0.6 (0.1-0.6) K/mm3 Eos # (Auto) 0.1 (0-0.3) K/mm3 Baso # (Auto) 0.1 (0.0-0.1) K/mm3 Abs Immat Gran (auto) 0.06 H (0.00-0.031) K/mm3 Absolute Neuts (auto) 7.1 H (1.3-6.7) K/mm3 Absolute Nucleated RBC 0.000 (0.0-0.012) K/mm3 Band Neutrophils % Not Reportable Nucleated RBC % 0.0 (0.0-0.2) % Platelet Estimate Adequate (Adequate) Hypochromasia 1+ Poikilocytosis 1+ Anisocytosis 1+ Schistocytes Rare PT 15.1 H (11.1-14.7) Seconds INR 1.2 APTT 29.8 (22.3-36.8) Seconds Methemoglobin 0.2 (0-1.5) %THb Expiratory Pressure cmH2O Inspiratory Pressure cmH2O Sodium 142 (137-145) mmol/L Potassium 4.5 (3.4-5.0) mmol/L Chloride 114 H (98-107) mmol/L Carbon Dioxide 13 L (22-30) mmol/L Anion Gap 15 H (4-12) mmol/L BUN 35 H (7-17) mg/dL Creatinine 2.52 H (0.7-1.0) mg/dL Estim Creat Clear Calc 13 ml/min Estimated GFR 18 L (59 - ) Glucose 244 H (65-110) mg/dL Calcium 8.8 (8.4-10.2) mg/dL Total Bilirubin 0.3 (0.2-1.3) mg/dL AST 23 (14-36) U/L ALT 14 (6-35) U/L Alkaline Phosphatase 94 (38-126) U/L Troponin I 0.022 (0.000-0.034) ng/mL NT-Pro-B Natriuret Pep 92492 H (19.9-100) pg/mL Total Protein 7.3 (6.3-8.2) g/dL Albumin 3.7 (3.5-5.1) g/dL Urine Color (Yellow) Urine Appearance (Clear) Urine pH (5.0-9.0) Ur Specific [place] (1.001-1.035) Urine Protein (Negative) mg/dL Urine Glucose (UA) (Negative) mg/dL Urine Ketones (Negative) mg/dL Ur Blood (Man) (Negative) Urine Nitrate (Negative) Urine Bilirubin (Negative) Urine Urobilinogen (<2.0) mg/dL Leukocyte Esterase Rfl (Negative) JOI/UL Urine RBC (0-2) /hpf Urine WBC (0-3) /hpf Ur Squamous Epith Cells (Few) /hpf Urine Bacteria /hpf Urine Casts Influenza A (RT-PCR) Negative (Negative) Influenza B (RT-PCR) Negative (Negative) RSV (RT-PCR) Negative (Negative) SARS-CoV-2 RNA (RT-PCR) Negative (Negative) Blood Type Antibody Screen 06/12/25 06/12/25 06/12/25 Range/Units 11:07 13:06 13:15 WBC (4.5-10.0) K/mm3 RBC (4.2-5.4) M/mm3 Hgb (12.0-15.0) g/dL Hct (37.0-47.0) % MCV (80-100) fl MCH (26-34) pg MCHC (32-36) g/dl RDW (11.5-14.5) % Plt Count (150-375) k/mm3 MPV (7.4-10.4) fl Immature Gran % (Auto) (0-0.5) % Neut % (Auto) (45.5-73.1) % Lymph % (Auto) (18.3-44.2) % Drew % (Auto) (2.6-8.5) % Eos % (Auto) (0-4.4) % Baso % (Auto) (0.2-1.2) % Lymph # (Auto) (0.9-3.2) K/mm3 Drew # (Auto) (0.1-0.6) K/mm3 Eos # (Auto) (0-0.3) K/mm3 Baso # (Auto) (0.0-0.1) K/mm3 Abs Immat Gran (auto) (0.00-0.031) K/mm3 Absolute Neuts (auto) (1.3-6.7) K/mm3 Absolute Nucleated RBC (0.0-0.012) K/mm3 Band Neutrophils % Nucleated RBC % (0.0-0.2) % Platelet Estimate (Adequate) Hypochromasia Poikilocytosis Anisocytosis Schistocytes PT (11.1-14.7) Seconds INR APTT (22.3-36.8) Seconds Methemoglobin 0.2 (0-1.5) %THb Expiratory Pressure 7 cmH2O Inspiratory Pressure 14 cmH2O Sodium (137-145) mmol/L Potassium (3.4-5.0) mmol/L Chloride (98-107) mmol/L Carbon Dioxide (22-30) mmol/L Anion Gap (4-12) mmol/L BUN (7-17) mg/dL Creatinine (0.7-1.0) mg/dL Estim Creat Clear Calc ml/min Estimated GFR (59 - ) Glucose (65-110) mg/dL Calcium (8.4-10.2) mg/dL Total Bilirubin (0.2-1.3) mg/dL AST (14-36) U/L ALT (6-35) U/L Alkaline Phosphatase (38-126) U/L Troponin I 0.049 H* D (0.000-0.034) ng/mL NT-Pro-B Natriuret Pep (19.9-100) pg/mL Total Protein (6.3-8.2) g/dL Albumin (3.5-5.1) g/dL Urine Color Yellow (Yellow) Urine Appearance Clear (Clear) Urine pH 5.5 (5.0-9.0) Ur Specific [place] 1.012 (1.001-1.035) Urine Protein 3+ H (Negative) mg/dL Urine Glucose (UA) Negative (Negative) mg/dL Urine Ketones Negative (Negative) mg/dL Ur Blood (Man) Trace (Negative) Urine Nitrate Negative (Negative) Urine Bilirubin Negative (Negative) Urine Urobilinogen 0.2 (<2.0) mg/dL Leukocyte Esterase Rfl Negative (Negative) JOI/UL Urine RBC 3-5 H (0-2) /hpf Urine WBC 0-5 (0-3) /hpf Ur Squamous Epith Cells None seen (Few) /hpf Urine Bacteria None seen /hpf Urine Casts 3-5 Influenza A (RT-PCR) (Negative) Influenza B (RT-PCR) (Negative) RSV (RT-PCR) (Negative) SARS-CoV-2 RNA (RT-PCR) (Negative) Blood Type A Positive Antibody Screen Negative <Maggie Hogan PA-C - Last Filed: 06/12/25 13:06> Lab Results 06/12/25 06/12/25 06/12/25 Range/Units 10:02 10:12 10:15 WBC 11.8 H (4.5-10.0) K/mm3 RBC 2.69 L (4.2-5.4) M/mm3 Hgb 7.3 L (12.0-15.0) g/dL Hct 24.9 L (37.0-47.0) % MCV 92.6 (80-100) fl MCH 27.1 (26-34) pg MCHC 29.3 L (32-36) g/dl RDW 17.8 H (11.5-14.5) % Plt Count 336 (150-375) k/mm3 MPV 11.1 H (7.4-10.4) fl Immature Gran % (Auto) 0.5 (0-0.5) % Neut % (Auto) 60.0 (45.5-73.1) % Lymph % (Auto) 32.9 (18.3-44.2) % Drew % (Auto) 5.2 (2.6-8.5) % Eos % (Auto) 0.8 (0-4.4) % Baso % (Auto) 0.6 (0.2-1.2) % Lymph # (Auto) 3.90 H (0.9-3.2) K/mm3 Drew # (Auto) 0.6 (0.1-0.6) K/mm3 Eos # (Auto) 0.1 (0-0.3) K/mm3 Baso # (Auto) 0.1 (0.0-0.1) K/mm3 Abs Immat Gran (auto) 0.06 H (0.00-0.031) K/mm3 Absolute Neuts (auto) 7.1 H (1.3-6.7) K/mm3 Absolute Nucleated RBC 0.000 (0.0-0.012) K/mm3 Band Neutrophils % Not Reportable Nucleated RBC % 0.0 (0.0-0.2) % Platelet Estimate Adequate (Adequate) Hypochromasia 1+ Poikilocytosis 1+ Anisocytosis 1+ Schistocytes Rare PT 15.1 H (11.1-14.7) Seconds INR 1.2 APTT 29.8 (22.3-36.8) Seconds Methemoglobin 0.2 (0-1.5) %THb Expiratory Pressure cmH2O Inspiratory Pressure cmH2O Sodium 142 (137-145) mmol/L Potassium 4.5 (3.4-5.0) mmol/L Chloride 114 H (98-107) mmol/L Carbon Dioxide 13 L (22-30) mmol/L Anion Gap 15 H (4-12) mmol/L BUN 35 H (7-17) mg/dL Creatinine 2.52 H (0.7-1.0) mg/dL Estim Creat Clear Calc 13 ml/min Estimated GFR 18 L (59 - ) Glucose 244 H (65-110) mg/dL Calcium 8.8 (8.4-10.2) mg/dL Total Bilirubin 0.3 (0.2-1.3) mg/dL AST 23 (14-36) U/L ALT 14 (6-35) U/L Alkaline Phosphatase 94 (38-126) U/L Troponin I 0.022 (0.000-0.034) ng/mL NT-Pro-B Natriuret Pep 21508 H (19.9-100) pg/mL Total Protein 7.3 (6.3-8.2) g/dL Albumin 3.7 (3.5-5.1) g/dL Urine Color (Yellow) Urine Appearance (Clear) Urine pH (5.0-9.0) Ur Specific [place] (1.001-1.035) Urine Protein (Negative) mg/dL Urine Glucose (UA) (Negative) mg/dL Urine Ketones (Negative) mg/dL Ur Blood (Man) (Negative) Urine Nitrate (Negative) Urine Bilirubin (Negative) Urine Urobilinogen (<2.0) mg/dL Leukocyte Esterase Rfl (Negative) JOI/UL Urine RBC (0-2) /hpf Urine WBC (0-3) /hpf Ur Squamous Epith Cells (Few) /hpf Urine Bacteria /hpf Urine Casts Influenza A (RT-PCR) Negative (Negative) Influenza B (RT-PCR) Negative (Negative) RSV (RT-PCR) Negative (Negative) SARS-CoV-2 RNA (RT-PCR) Negative (Negative) Blood Type Antibody Screen 06/12/25 06/12/25 06/12/25 Range/Units 11:07 13:06 13:15 WBC (4.5-10.0) K/mm3 RBC (4.2-5.4) M/mm3 Hgb (12.0-15.0) g/dL Hct (37.0-47.0) % MCV (80-100) fl MCH (26-34) pg MCHC (32-36) g/dl RDW (11.5-14.5) % Plt Count (150-375) k/mm3 MPV (7.4-10.4) fl Immature Gran % (Auto) (0-0.5) % Neut % (Auto) (45.5-73.1) % Lymph % (Auto) (18.3-44.2) % Drew % (Auto) (2.6-8.5) % Eos % (Auto) (0-4.4) % Baso % (Auto) (0.2-1.2) % Lymph # (Auto) (0.9-3.2) K/mm3 Drew # (Auto) (0.1-0.6) K/mm3 Eos # (Auto) (0-0.3) K/mm3 Baso # (Auto) (0.0-0.1) K/mm3 Abs Immat Gran (auto) (0.00-0.031) K/mm3 Absolute Neuts (auto) (1.3-6.7) K/mm3 Absolute Nucleated RBC (0.0-0.012) K/mm3 Band Neutrophils % Nucleated RBC % (0.0-0.2) % Platelet Estimate (Adequate) Hypochromasia Poikilocytosis Anisocytosis Schistocytes PT (11.1-14.7) Seconds INR APTT (22.3-36.8) Seconds Methemoglobin 0.2 (0-1.5) %THb Expiratory Pressure 7 cmH2O Inspiratory Pressure 14 cmH2O Sodium (137-145) mmol/L Potassium (3.4-5.0) mmol/L Chloride (98-107) mmol/L Carbon Dioxide (22-30) mmol/L Anion Gap (4-12) mmol/L BUN (7-17) mg/dL Creatinine (0.7-1.0) mg/dL Estim Creat Clear Calc ml/min Estimated GFR (59 - ) Glucose (65-110) mg/dL Calcium (8.4-10.2) mg/dL Total Bilirubin (0.2-1.3) mg/dL AST (14-36) U/L ALT (6-35) U/L Alkaline Phosphatase (38-126) U/L Troponin I 0.049 H* D (0.000-0.034) ng/mL NT-Pro-B Natriuret Pep (19.9-100) pg/mL Total Protein (6.3-8.2) g/dL Albumin (3.5-5.1) g/dL Urine Color Yellow (Yellow) Urine Appearance Clear (Clear) Urine pH 5.5 (5.0-9.0) Ur Specific [place] 1.012 (1.001-1.035) Urine Protein 3+ H (Negative) mg/dL Urine Glucose (UA) Negative (Negative) mg/dL Urine Ketones Negative (Negative) mg/dL Ur Blood (Man) Trace (Negative) Urine Nitrate Negative (Negative) Urine Bilirubin Negative (Negative) Urine Urobilinogen 0.2 (<2.0) mg/dL Leukocyte Esterase Rfl Negative (Negative) JOI/UL Urine RBC 3-5 H (0-2) /hpf Urine WBC 0-5 (0-3) /hpf Ur Squamous Epith Cells None seen (Few) /hpf Urine Bacteria None seen /hpf Urine Casts 3-5 Influenza A (RT-PCR) (Negative) Influenza B (RT-PCR) (Negative) RSV (RT-PCR) (Negative) SARS-CoV-2 RNA (RT-PCR) (Negative) Blood Type A Positive Antibody Screen Negative <Alejo Nolan MD - Last Filed: 06/12/25 18:24> ABG Data ABG results: 06/12/25 06/12/25 10:12 13:15 Puncture Site Left radial Left radial ABG pH 7.196 L* 7.352 ABG pCO2 38.3 33.3 L ABG pO2 80.9 118.2 H ABG PO2/FiO2 Ratio 3.85 3.69 ABG HCO3 14.5 L 18.1 L ABG O2 Saturation 93.4 L 98.2 ABG O2 Content 10.1 L 10.8 L ABG Base Excess -12.6 -6.8 A-a Gradient 23.0 71.0 Oxyhemoglobin 91.7 97.4 Carboxyhemoglobin 1.1 0.9 Reduced Hemoglobin 7.0 H 1.5 Total Hemoglobin 7.7 L* 7.7 L* O2 Delivery Device Room air Bipap O2 Liters/Min Not Reportable Not Reportable FiO2 21 32 <Maggie Hogan PA-C - Last Filed: 06/12/25 13:06> 06/12/25 06/12/25 10:12 13:15 Puncture Site Left radial Left radial ABG pH 7.196 L* 7.352 ABG pCO2 38.3 33.3 L ABG pO2 80.9 118.2 H ABG PO2/FiO2 Ratio 3.85 3.69 ABG HCO3 14.5 L 18.1 L ABG O2 Saturation 93.4 L 98.2 ABG O2 Content 10.1 L 10.8 L ABG Base Excess -12.6 -6.8 A-a Gradient 23.0 71.0 Oxyhemoglobin 91.7 97.4 Carboxyhemoglobin 1.1 0.9 Reduced Hemoglobin 7.0 H 1.5 Total Hemoglobin 7.7 L* 7.7 L* O2 Delivery Device Room air Bipap O2 Liters/Min Not Reportable Not Reportable FiO2 21 32 <Alejo Nolan MD - Last Filed: 06/12/25 18:24> Attestation: I personally reviewed and interpreted this ABG as follows: <Maggie Hogan PA-C - Last Filed: 06/12/25 13:06> Imaging Data Attestation: I personally reviewed and interpreted this imaging study as follows: < NINA Matos Last Filed: 06/12/25 13:06> Radiologist's impression: ITS Impressions Chest X-Ray 06/12/25 10:15 Impression: CHF. Superimposed probable pneumonia <NINA Matos Last Filed: 06/12/25 13:06> ECG Data EKG #1: Attestation: I personally reviewed and interpreted this ECG as follows: <Maggie Hogan PA-C - Last Filed: 06/12/25 13:06> ECG completion date: 06/12/25 <NINA Matos Last Filed: 06/12/25 13:06> ECG completion time: 09:54 <NINA Matos Last Filed: 06/12/25 13:06> EKG Interpretation: tachycardia (127), sinus rhythm, PVCs, non-specific ST changes and other (baseline artifact and wander) <NINA Matos Last Filed: 06/12/25 13:06> Discharge Plan Discharge Clinical Impression: Acute hypoxemic respiratory failure, Acute kidney injury superimposed on CKD Acute exacerbation of CHF (congestive heart failure) Qualifiers: Heart failure type: unspecified Qualified Code(s): I50.9 - Heart failure, unspecified Pneumonia Qualifiers: Pneumonia type: due to unspecified organism Laterality: bilateral Lung location: unspecified part of lung Qualified Code(s): J18.9 - Pneumonia, unspecified organism <Maggie Hogan PA-C - Last Filed: 06/12/25 13:06> Patient Disposition: Still a Patient <NINA Matos Last Filed: 06/12/25 13:06> Condition: Serious <NINA Matos Last Filed: 06/12/25 13:06>
[2025-06-12 10:08] LABS: Hematocrit 24.9 % (37.0-47.0); Hemoglobin 7.3 g/dL (12.0-15.0); Immature Granulocyte Percent A 0.5 % (0-0.5); Lymphocytes Absolute Auto 3.90 K/mm3 (0.9-3.2); Mean Corpuscular HGB Conc 29.3 g/dl (32-36); Mean Corpuscular Hemoglobin 27.1 pg (26-34); Mean Corpuscular Volume 92.6 fl (80-100); Nucleated Red Blood Cells Absolute Auto 0.000 K/mm3 (0.0-0.012); Nucleated Red Blood Cells Perc 0.0 % (0.0-0.2); Platelet Count Result 336 k/mm3 (150-375); Red Blood Count 2.69 M/mm3 (4.2-5.4); White Blood Count 11.8 K/mm3 (4.5-10.0)
--- NOTE | 2025-06-12 10:14 | PC.NURSE ---
RT at bedside with BIPAP
[2025-06-12 10:18] LABS: Alveolar/Arterial O2 Gradient 23.0 mmHg; Carboxyhemoglobin 1.1 % THb (0-2.0); Fractional Inspired Oxygen 21 %; HCO3 ABG 14.5 mEq/l (22.0-26.0); Methemoglobin ABG 0.2 %THb (0-1.5); Oxygen Content ABG 10.1 %vol (16.0-22.0); Oxygen Saturation ABG 93.4 % (95.0-100.0); PCO2 ABG 38.3 mmHg (35.0-45.0); PO2 ABG 80.9 mmHg (80.0-100.0); PO2 FiO2 Ratio Arterial Blood 3.85 %; Reduced Hemoglobin 7.0 %THb (0-5.0)
[2025-06-12 10:19] LABS: INR 1.2; Prothrombin Time 15.1 Seconds (11.1-14.7)
[2025-06-12 10:20] LABS: Partial Thromboplastin Time 29.8 Seconds (22.3-36.8)
[2025-06-12] MEDS: IPRATROPIUM BR 0.02% INH SOLN 0.5 MG/2.5 ML VIAL 1.5 MG INHALATION (10:21)
[2025-06-12 10:22] LABS: Modified Allen's Test Pass; Site Drawn LEFT RADIAL
[2025-06-12 10:22] LABS: Alanine Aminotransferase 14 U/L (6-35); Albumin Level 3.7 g/dL (3.5-5.1); Alkaline Phosphatase 94 U/L (38-126); Anion Gap 15 mmol/L (4-12); Aspartate Amino Transferase 23 U/L (14-36); Bilirubin,Total 0.3 mg/dL (0.2-1.3); Blood Urea Nitrogen 35 mg/dL (7-17); Calcium 8.8 mg/dL (8.4-10.2); Carbon Dioxide 13 mmol/L (22-30); Chloride 114 mmol/L (98-107); Estimated CRCL calculation 13 ml/min; Estimated Glomerular Filt Rate 18; Glucose 244 mg/dL (65-110); Potassium 4.5 mmol/L (3.4-5.0); Sodium 142 mmol/L (137-145); Total Protein 7.3 g/dL (6.3-8.2)
--- OUTSIDE RECORDS SUMMARY | 2025-06-12 10:24 | XMS_ITS | Clinical Summary ---
Author Organization [facility] utinicki Address [address] [place] [address] Phone Care Team Providers Care Telephone Mechanic Name Role Phone Clayton Angulo MD Primary Care Provider [phone] Allergies Active Allergy Reactions Criticality Noted Date Comments Aden Inhibitors Cough Medium Atorvastatin Medium 03/22/2019 Other reaction(s): Myalgias (muscle pain) Fluvastatin Medium 03/22/2019 Other reaction(s): Muscle pain, Other Penicillins Itching,Rash Medium 05/20/2016 Pravastatin Medium 03/22/2019 Other reaction(s): Myalgias (muscle pain) Rosuvastatin Other (see comments) Medium 03/22/2019 Medications atorvastatin (LIPITOR) 40 MG tablet 1 daily 0 7 Active potassium chloride (KLOR-CON) 20 MEQ CR tablet 1 daily 0 8 Active furosemide (LASIX) 40 MG tablet 1 tab/cap bid 3 6 Active fluticasone-barbara nterol (BREO ELIPTA) 100-25 MCG/INH inhaler Inhale 1 puff daily Active fluticasone (FLONASE) 50 MCG/ACT nasal spray daily Active LORazepam (ATIVAN) 0.5 MG tablet every 8 hours Active montelukast (SINGULAIR) 10 MG tablet 0 Active omeprazole (PriLOSEC) [address] capsule Take 40 mg by mouth 2 times daily 6 Active ondansetron ODT (ZOFRAN-ODT) 4 MG dispersible tablet Take 4 mg by mouth 6 Active Pitavastatin Calcium (LIVALO) 4 MG tablet daily Active hydrOXYzine (ATARAX) 10 MG tablet hydroxyzine HCl 10 mg tablet Active escitalopram (LEXAPRO) 10 MG tablet 1 Active albuterol HFA (PROVENTIL HFA) 108 (90 Base) MCG/ACT inhaler 1 Active ipratropium (ATROVENT) 0.03 % nasal spray 2 Active irbesartan (AVAPRO) 300 MG tablet TAKE 1 TABLET BY MOUTH DAILY 90 tablet 3 2 Active metoprolol tartrate (LOPRESSOR) 100 MG tablet TAKE 1 TABLET BY MOUTH TWICE DAILY WITH FOOD 180 tablet 3 2 Active hydrALAZINE (APRESOLINE) 50 MG tablet Take 1 tablet (50 mg total) by mouth 3 (three) times a day 270 tablet 3 2 Active metFORMIN XR 500 MG 24 hr tablet 2 Active NIFEdipine CC (ADALAT CC) 90 MG 24 hr tablet Take 1 tablet (90 mg total) by mouth 1 (one) time each day 90 tablet 3 2 Active cholecalciferol (VITAMIN D-3) 50 MCG (2000 UT) capsule Take 2 capsules (4,000 Units total) by mouth 1 (one) time each day 60 capsule 2 Active Active Problems Problem Noted Date Diagnosed Date Hyperlipidemia 11/01/2018 Proteinuria 12/28/2017 Shortness of breath 10/05/2017 Type 2 diabetes mellitus wit h other diabetic kidney complication 02/12/2013 Stage 3a chronic kidney disease 02/12/2013 Hypertensive chronic kidney disease with stage 1 through stage 4 chronic kidney disease, or unspecified chronic kidney disease 02/12/2013 Benign essential hypertension 12/27/2011 Immunizations Immunization Administration Dates Next Due Influenza Split 06/12/2014 [...] of Binge Drinking Not on file 02/10 Comments Unknown Sex and Gender Information Value Date Recorded Sex Assigned at Not on file Legal Sex Female 10:08 AM MST Gender Identity Not on file Sexual Orientation Not on file Last Filed Vital Signs Vital Sign Reading Time Taken Comments Blood Pressure 138/80 08/30/2022 11:05 AM RESAWYER Pulse 84 08/30/2022 11:05 AM RESAWYER Temperature 34.9 C (94.9 F) 08/30/2022 11:05 AM RESAWYER Respiratory Rate - - Oxygen Saturation - - Inhaled Oxygen Concentration - - Weight 75.8 kg (167 lb) 08/30/2022 11:05 AM RESAWYER Height 162.6 cm (5' 4) 08/30/2022 11:05 AM RESAWYER Body Mass Index 28.67 08/30/2022 11:05 AM RESAWYER Plan of Treatment Health Maintenance Due Date Last Done Comments COVID-19 Vaccine (2024- 6 season) 2025 11/28/2020, 10/31/2020, 10/24/2019 Influenza Vaccine (#1) 2025 , 06/13/2019, 07/02/2014, Additional history exists Pneumococcal PPSV23/PCV13 65 + Years / Low and Medium Risk Completed 09/20/2014, 06/12/2014 Insurance MEDICARE [employer] on file Care Teams Telephone Mechanic Relationship Specialty Start Date End Date Clayton Angulo MD [address] [address] PCP - General Internal Medicine 02/26/19
--- OUTSIDE RECORDS SUMMARY | 2025-06-12 10:24 | XMS_ITS | Clinical Summary ---
Author Organization [facility] Address [address], [facility] [address] [place] [address] Phone Care Team Providers Care Manager Truck Name Role Phone Clayton Angulo MD Primary Care Provider [phone] Allergies Active Allergy Reactions Criticality Noted Date [...] Health Maintenance Due Date Last Done Comments Hepatitis C Virus (HCV) Screening 1940 TdaP Immunization 1940 Pneumococcal Immunization (50+ years) (1 of 1 - PCV) 12/01/1989 09/12/2013 Zoster Immunization (1 of 2) 12/01/1989 Respiratory Syncytial Virus (RSV) Immunization (Adult) (1 - 1-dose 75+ series) 12/01/2014 Influenza Immunization (#1) 2025 10/0 04/2020, 07/16/2019, 09/12/2015, Additional history exists SARS-COV-2 Immunization ( season) 2025 09/24/2021, 11/28/2020, 10/31/2020 Pneumococcal Immunization Combined Discontinued 09/12/2013 Hepatitis B Immunization Aged Out No longer eligible based on patient's age to complete this topic Human Papillomavirus (HPV) Immunization Aged Out No longer eligible based on patient's age to complete this topic Meningococcal Immunization (ACWY) Aged Out No longer eligible based on patient's age to complete this topic Rotavirus Immunization Aged Out No lo nger eligible based on patient's age to complete this topic Insurance MEDICARE [employer] Care Teams Manager Truck Relationship Specialty Start Date End Date Clayton Angulo MD [address] [address] PCP - General Internal Medicine 05/19/16
--- OUTSIDE RECORDS SUMMARY | 2025-06-12 10:24 | XMS_ITS | Encounter Summary ---
Author Organization [facility] ut[facility] Address [address] [place] [address] Phone Care Team Providers Care Chaser Helper Name Role Phone Clayton Angulo MD Primary Care Provider [phone] Reason for Visit * Reason Comments Med Refill Encounter Details Date Type Department Care Team (Late st Contact Info) Description 07/25/2019 Refill [facility] Nephrology and Hypertension [facility], [address] [address] Aissatou Wiseman MD [address]34 [facility], [address] [place] [address] Social History Tobacco Use Types Packs/Day Years [...] on file Legal Sex Female 10:[address] [facility] Gender Identity Not on file Sexual Orientation Not on file documented as of this encounter Plan of Treatment Not on file documented as of this encounter Visit Diagnoses Not on filedocumented in this encounter Care Teams Chaser Helper Relationship Specialty Start Date End Date Clayton Angulo MD 2043 [facility] 23 [place] [phone] PCP - General Internal Medicine 02/26/19 documented as of this encounter
--- OUTSIDE RECORDS SUMMARY | 2025-06-12 10:24 | XMS_ITS | Clinical Summary ---
Author Organization [facility] [address] [facility] [address] Address [address] [place] [address] Care Team Providers Care Strike Plate Attacher Name Role Phone Clayton Angulo MD Primary Care Provider Ac Butler MD Unavailable [phone] Young Juarez MD Unavailable [phone] Mahin Morataya MD Unavailable Allergies Active Allergy [...] total) by mouth daily Active blood-glucose meter ([employer] AUTOCODE METER) kit Use daily to check [...] hyperglycemia, without long-term current use of insulin ([facility]) Check blood sugars once daily ac 90 each 3 9 Active lancets miscIndications :Type 2 diabetes mellitus with hyperglycemia, without long-term current use of insulin ([facility]) Check BG once daily rotating [...] 1 tablet (10 mg total) by mouth glassware selector before breakfast Active metFORMIN XR (GLUCOPHAGE XR) 500 mg 24 hr tabletIndicatio ns:Type 2 diabetes mellitus with hyperglycemia, without long-term current use of insulin (HCC) TAKE 2 TABLETS BY MOUTH DAILY WITH BREAKFAST 180 tablet 3 4 Active Active Problems Problem Noted Date Diagnosed Date Hyperlipidemia associated with type 2 diabetes tasha marino 05/30/2023 Assessment & Plan (09/29/2023 3:55 PM FRANCHISE SALES MANAGER): Chronic, well-controlled Continue atorvastatin Update lipid profile Dyspnea 02/24/2021 Assessment & Plan (02/24/2021 1:44 PM CDT): Pt with hx of COPD and CHF Advised to follow up with PCP Microalbuminuria 10/25/2019 Assessment & Plan (10/25/2019 4:32 PM FRANCHISE SALES MANAGER): Consider starting Invokana Hypertension associated with diabetes 07/31/2013 Overview (12/16/2016): HYPERTENSION NOS Assessment & Plan (09/29/2023 3:55 PM FRANCHISE SALES MANAGER): Chronic, well-controlled CKD, following with renal [...] UNCNTRLD Assessment & Plan (09/29/2023 3:55 PM FRANCHISE SALES MANAGER): Chronic, well-controlled Continue Jardiance Assessment & [...] Metformin Assessment & Plan (10/25/2019 4:32 PM FRANCHISE SALES MANAGER): Hba1c was Lab Results Component Value [...] Hypertension Hyperlipidemia Hyperlipidemia Type 2 diabetes mellitus Diabete s type 2 Hx Other Medical proteinuria Hx Other Medical Renal Insuffici ency, Chronic Hx Other Medical Claustrophobic; Comments: [facility] 06/05/2014 - CHF (congestive heart failure) (HCC) Family History Medical History Relation Name [...] on file Legal Sex Female 7:54 AM FRANCHISE SALES MANAGER Gender Identity Not on file Sexual Orientation Not on file Obstetrics History Last Filed Vital Signs Vital Sign Reading Time Taken Comments Blood Pressure 120/70 09/29/2023 3:12 PM FRANCHISE SALES MANAGER Pulse 64 09/29/2023 3:12 PM FRANCHISE SALES MANAGER Temperature - - Respiratory Rate 16 03/16/2022 10:05 AM CDT Oxygen Saturation 96% 11/23/2018 10:13 AM CDT Inhaled Oxygen Concentration - - Weight 73.5 kg (162 lb 1.6 oz) 09/29/2023 3:12 P M FRANCHISE SALES MANAGER Height 154.9 cm (5' 1) 09/29/2023 3:12 PM FRANCHISE SALES MANAGER Body Mass Index 30.63 09/29/2023 3:12 PM FRANCHISE SALES MANAGER Plan of Treatment Health Maintenance Due [...] 09/29/2023, 07/0 01/2022, 02/24/2021, Additional history exists Foot Exam 09/29/2024 09/29/2023, 03/22/2019 Influenza Vaccine (#1) 2025 2, 06/23/2021, 06/02/2021, Additional history exists Pneumococcal vaccine 65+ Completed 015, 06/12/2014, 09/12/2013 Procedures Procedure Name Priority Date/Time Associated Diagnosis Comments POCT HEMOGLOBIN A1C Routine 09/29/2023 3 :12 PM FRANCHISE SALES MANAGER Type 2 diabetes mellitus with hyperglycemia, without long-term current use of insulin (HCC) POCT LIPID PANEL Routine 10/25/2019 2:10 PM FRANCHISE SALES MANAGER Type 2 diabetes mellitus with hyperglycemia, without long-term current use of insulin (HCC) ALBUMIN CREATININE RATIO, URINE Routine 03/07/2018 DIABETIC EYE EXAM Routine 01/25/2017 from Last 3 Months or Most Recently Relevant to Health Maintenance Results * (ABNORMAL) POCT hemoglobin A1c (09/29/2023 3:12 PM FRANCHISE SALES MANAGER) Hemoglobin A1C, POC 5.6 % Blood spot 09/29/2023 3:12 PM FRANCHISE SALES MANAGER Mahin Morataya MD POINT OF CARE TEST ORDERABLES Fi nal Result * POCT lipid panel (10/25/2019 2:10 PM FRANCHISE SALES MANAGER) Cholesterol, POC 186 mg/dL HDL, POC 56 mg/dL Triglycerides, POC 227 mg/dL LDL Cholesterol POC 85 mg/dL Chol/HDL Ratio, POC 3.3 Non-HDL Cholesterol, POC 130 mg/dL Cholesterol Total, POC 186 mg/dL Blood specimen (specimen) 10/25/2019 2:10 PM FRANCHISE SALES MANAGER Mahin Morataya MD POINT OF CARE TEST ORDERABLES Fi nal Result * (ABNORMAL) Microalbumin / creatinine ratio, urine, random (03/07/2018) SCRIBED Microalbumin 272.8(A) 0.0 - 16.6 EXTERNAL LAB Urine Reva Sainz MD LAB URINE ORDERABLES Edit ed Result - Final EXTERNAL LAB * Diabetic Eye Exam (01/25/2017) Historical Provider HEALTH MAINTENANCE Edited Result - Final from Last 3 Months or Most Recently Relevant to Health Maintenance Insurance MEDICARE [employer] GENER[employer] MEDICARE [employer] MEDICARE [employer] COMM[employer]CIAL GENERIC MEDICARE Care Teams Strike Plate Attacher Relationship Specialty Start Date End Date Clayton Angulo MD PCP - General 12/10/16 Ac Butler MD [address] [address] Consulting Physician Cardiology 07/13/18 Young Juarez MD [address] [address] Referring Physician Nephrology 03/08/23 [place] [id number] [address] Consulting Physician Endocrinology Diabetes & Metabolism 03/08/23
--- OUTSIDE RECORDS SUMMARY | 2025-06-12 10:24 | XMS_ITS | Encounter Summary ---
Author Organization [facility] utions Address [address] [place] [address] Phone Care Team Providers Care Clothing Man Name Role Phone Clayton Angulo MD Primary Care Provider [phone] Reason for Visit * Reason Comments Med Refill Encounter Details Date Type Department Care Team (Late st Contact Info) Description 04/24/2019 Refill [facility] Nephrology and Hypertension [address] [facility], [address] [facility] [place] [address] Young Juarez MD [address] [facility], [address] [place] [address] Social History Tobacco Use Types Packs/Day Years [...] on file Legal Sex Female 10:08 AM [facility] Gender Identity Not on file Sexual Orientation Not on file documented as of this encounter Plan of Treatment Not on file documented as of this encounter Visit Diagnoses Not on filedocumented in this encounter Care Teams Clothing Man Relationship Specialty Start Date End Date Clayton Angulo MD [address] [phone] PCP - General Internal Medicine 02/26/19 documented as of this encounter
--- OUTSIDE RECORDS SUMMARY | 2025-06-12 10:24 | XMS_ITS | Encounter Summary ---
Author Organization [facility]ions Address [address] [place] [address] Phone Care Team Providers Care Air Conditioning Supervisor Name Role Phone Clayton Angulo MD Primary Care Provider Reason for Visit * Reason Comments Med Refill Encounter Details Date Type Department Care Team (Late st Contact Info) Description 10/05/2020 Refill [facility] Nephrology and Hypertension [facility]4 [facility], [address] [address] Aissatou Wiseman MD 1034 [facility], [address] [address] Social History Tobacco Use Types Packs/Day Years [...] on file Legal Sex Female 10:08 AM [facility] Gender Identity Not on file Sexual Orientation Not on file documented as of this encounter Plan of Treatment Not on file documented as of this encounter Visit Diagnoses Not on filedocumented in this encounter Care Teams Air Conditioning Supervisor Relationship Specialty Start Date End Date Clayton Angulo MD 2043 [facility] 23 [place] [phone] PCP - General Internal Medicine 02/26/19 documented as of this encounter
--- OUTSIDE RECORDS SUMMARY | 2025-06-12 10:24 | XMS_ITS | Clinical Summary ---
Author Organization [facility] Address [address] [facility] [place] [address] Care Team Providers Care Retail Account Executive Name Role Phone Clayton Angulo MD Primary Care Provider [phone] Source Comments [facility],non-owned Affiliates and Associated Physician Practices is amultiple site organization consisting of ambulatory clinics and hospital sitesin [place], [place], [place] and [place]. This disclosure is being madepursuant to the Care Everywhere program and may not contain all information available regarding this patient. Last updated 18.[facility] EPS Immunizations Immunization Administration Dates Next Due INFLUENZA VACCINE, HIGH-DOSE , QUADR. (FLUZONE HIGH-DOSE QUADRIVALENT; 65Y+), 0.7 ML (HD-[id number]) 06/19/2020 Social History Tobacco Use Types Packs/Day Years Used Date Smoking Tobacco: Never Assessed Comments Unknown Sex and Gender Information Value Date Recorded Sex Assigned at Not on file Legal Sex Female 5:50 AM DISPLAY DECORATOR Gender Identity Not on file Sexual Orientation Not on file Plan of Treatment Health Maintenance Due Date Last Done Comments BONE DENSITY TESTING 1940 DTAP/TDAP/TD VACCINES (1 - Tdap) 12/01/1958 PNEUMOCOCCAL VACCINE 50+ (1 of 1 - PCV) 12/01/1989 ZOSTER VACCINE (1 of 2) 12/01/1989 Respiratory Syncytial Virus (RSV) Vaccine Pt: or over 60 yrs (1 - 1-dose 75+ series) 12/01/2014 DEPRESSION SCREENING 09/12/2024 COVID-19 VACCINE (1 - season) 2025 INFLUENZA VACCINE (#1) 2025 0, 06/13/2019, 06/20/2018, Additional history exists HEPATITIS B VACCINE Aged Out No longe r eligible based on patient's age to complete this topic HIB VACCINE Aged Out No longer eligi ble based on patient's age to complete this topic HPV VACCINE Aged Out No longer eligi ble based on patient's age to complete this topic MENINGOCOCCAL (Group B) VACCINE SHARED DECISION-MAKING Aged Out No longer eligible based on patient's age to complete this topic MENINGOCOCCAL GROUPS A/C/Y/W VACCINE Aged Out No longer eligible based on patient's age to complete this topic Insurance MEDICARE COMMERCIAL GENERIC Care Teams Retail Account Executive Relationship Specialty Start Date End Date Clayton Angulo MD [address] [place] [phone] PCP - General 11/28/20
--- OUTSIDE RECORDS SUMMARY | 2025-06-12 10:24 | XMS_ITS | Clinical Summary ---
Author Organization [facility] Address [address] [place] [address] Care Team Providers Care Global Account Manager Name Role Phone Unavailable Primary Care Provider Unavailabl e Social History Tobacco Use Types Packs/Day Years Used Date Smoking Tobacco: Never Assessed Comments Unknown Sex and Gender Information Value Date Recorded Sex Assigned at Not on file Legal Sex Female 1:41 PM CDT Gender Identity Not on file Sexual Orientation Not on file Plan of Treatment Health Maintenance Due Date Last Done Comments DTaP, Tdap and Td Vaccines ( 1 - Tdap) 12[birth year]01/1959 Pneumococcal Vaccine: 50+ Ye ars (1 of 1 - PCV) 12/01/1989 Zoster Vaccines (1 of 2) 12/01/1989 Annual Medicare Wellness Visit 12/01/2004 RSV Immunization or 60+ Years (1 - 1-dose 75+ series) 12/01/2014 PHQ-2 (Physician [place]) 09/12/2024 COVID-19 Vaccine ( - 2023-2 5 season) 2025 Meningococcal B Vaccine Aged Out No l [...]
[2025-06-12 10:25] LABS: Anisocytosis 1+; Hypochromasia 1+; Poikilocytosis 1+; Schistocytes Rare
[2025-06-12] MEDS: NITROGLYCERIN OINTMENT 1 INCH DOSE TRANSDERM (10:28)
[2025-06-12] MEDS: FUROSEMIDE INJ 40 MG/4 ML VIAL IV PUSH ×2 (10:28→20:59)
[2025-06-12 10:32] LABS: NT Pro B Type Natriuretic Pept 15300 pg/mL (19.9-100); Troponin I 0.022 ng/mL (0.000-0.034)
[2025-06-12 10:56] LABS: Influenza A QL RT-PCR Negative (Negative); Influenza B QL RT-PCR Negative (Negative); RSV RNA, RT-PCR Negative (Negative); SARS-CoV-2 RNA PCR Negative (Negative)
[2025-06-12 11:21] LABS: Add Urine Microscopic? YES; Appearance Urine Clear (Clear); Glucose Urine UA Negative (Negative); Leukocyte Esterase Ur Negative LEU/UL (Negative); Nitrate Urine Negative (Negative); Specific Grav Ur 1.012 (1.001-1.035)
[2025-06-12] MEDS: cefTRIAXone 1 GM in SODIUM CHLORIDE 0.9% IV 50 ML 100 ML IVPB (11:24)
[2025-06-12] MEDS: AZITHROMYCIN IV 500 MG in SODIUM CHLORIDE 0.9% IV 250 ML IVPB (11:56)
--- OUTSIDE RECORDS SUMMARY | 2025-06-12 12:18 | XMS_ITS | Clinical Summary ---
Author Organization [facility] Address [address] [place] [address] Care Team Providers Care Cow Washer Name Role Phone Unavailable Primary Care Provider [...] - 1-dose 75+ series) 12/01/2014 PHQ-2 (Physician [place]) 09/12/2024 COVID-19 Vaccine ( - 2023-2 5 [...]
--- OUTSIDE RECORDS SUMMARY | 2025-06-12 12:18 | XMS_ITS | Encounter Summary ---
Author Organization [facility] utions Address [address] [place] [address] Phone Care Team Providers Care Kier Boiler Name Role Phone Clayton Angulo MD Primary Care Provider [phone] Reason for Visit * Reason Comments Med Refill Encounter Details Date Type Department Care Team (Late st Contact Info) Description 07/25/[address] [facility] Nephrology and Hypertension [facility]4 [facility], [address] [address] Aissatou Wiseman MD 1034 [facility], [address] [place] [address] Social History Tobacco Use Types Packs/Day Years [...] on file Legal Sex Female 10:08 AM [facility] Gender Identity Not on file Sexual Orientation Not on file documented as of this encounter Plan of Treatment Not on file documented as of this encounter Visit Diagnoses Not on filedocumented in this encounter Care Teams Kier Boiler Relationship Specialty Start Date End Date Clayton Angulo MD 2043 [facility] 23 [place] [phone] PCP - General Internal Medicine 02/26/19 documented as of this encounter
--- OUTSIDE RECORDS SUMMARY | 2025-06-12 12:18 | XMS_ITS | Clinical Summary ---
Author Organization [facility] [address] Address [address] [place] [address] Care Team Providers Care Movie Projectionist Name Role Phone Clayton Angulo MD Primary Care Provider Ac Butler MD Unavailable [phone] Young Juarez MD Unavailable [phone] Mahin Morataya MD Unavailable Allergies Active Allergy [...] total) by mouth daily Active blood-glucose meter ([employer]) kit Use daily to check [...] hyperglycemia, without long-term current use of insulin ([facility]) Check blood sugars once daily ac 90 each 3 9 Active lancets miscIndications :Type 2 diabetes mellitus with hyperglycemia, without long-term current use of insulin ([facility]) Check BG once daily rotating times ac [...] 1 tablet (10 mg total) by mouth client support associate before breakfast Active metFORMIN XR (GLUCOPHAGE XR) 500 mg 24 hr tabletIndicatio ns:Type 2 diabetes mellitus with hyperglycemia, without long-term current use of insulin (HCC) TAKE 2 TABLETS BY MOUTH DAILY WITH BREAKFAST 180 tablet 3 4 Active Active Problems Problem Noted Date Diagnosed Date Hyperlipidemia associated with type 2 diabetes tasha marino 05/30/2023 Assessment & Plan (09/29/2023 3:55 PM SUPERVISOR BENZENE REFINING): Chronic, well-controlled Continue atorvastatin Update lipid profile Dyspnea 02/24/2021 Assessment & Plan (02/24/2021 1:44 PM CDT): Pt with hx of COPD and CHF Advised to follow up with PCP Microalbuminuria 10/25/2019 Assessment & Plan (10/25/2019 4:32 PM SUPERVISOR BENZENE REFINING): Consider starting Invokana Hypertension associated with diabetes 07/31/2013 Overview (12/16/2016): HYPERTENSION NOS Assessment & Plan (09/29/2023 3:55 PM SUPERVISOR BENZENE REFINING): Chronic, well-controlled CKD, following with renal Update [...] UNCNTRLD Assessment & Plan (09/29/2023 3:55 PM SUPERVISOR BENZENE REFINING): Chronic, well-controlled Continue Jardiance Assessment & Plan [...] Metformin Assessment & Plan (10/25/2019 4:32 PM SUPERVISOR BENZENE REFINING): Hba1c was Lab Results Component Value Date [...] ency, Chronic Hx Other Medical Claustrophobic; Comments: [facility] 06/05/2014 - CHF (congestive heart [...] on file Legal Sex Female 7:54 AM SUPERVISOR BENZENE REFINING Gender Identity Not on file Sexual Orientation Not on file Obstetrics History Last Filed Vital Signs Vital Sign Reading Time Taken Comments Blood Pressure 120/70 09/29/2023 3:12 PM SUPERVISOR BENZENE REFINING Pulse 64 09/29/2023 3:12 PM SUPERVISOR BENZENE REFINING Temperature - - Respiratory Rate 16 03/16/2022 10:05 AM CDT Oxygen Saturation 96% 11/23/2018 10:13 AM CDT Inhaled Oxygen Concentration - - Weight 73.5 kg (162 lb 1.6 oz) 09/29/2023 3:12 P M SUPERVISOR BENZENE REFINING Height 154.9 cm (5' 1) 09/29/2023 3:12 PM SUPERVISOR BENZENE REFINING Body Mass Index 30.63 09/29/2023 3:12 PM SUPERVISOR BENZENE REFINING Plan of Treatment Health Maintenance Due Date [...] HEMOGLOBIN A1C Routine 09/29/2023 3 :12 PM SUPERVISOR BENZENE REFINING Type 2 diabetes mellitus with hyperglycemia, without long-term current use of insulin (HCC) POCT LIPID PANEL Routine 10/25/2019 2:10 PM SUPERVISOR BENZENE REFINING Type 2 diabetes mellitus with hyperglycemia, without long-term current use of insulin (HCC) ALBUMIN CREATININE RATIO, URINE Routine 03/07/2018 DIABETIC EYE EXAM Routine 01/25/2017 from Last 3 Months or Most Recently Relevant to Health Maintenance Results * (ABNORMAL) POCT hemoglobin A1c (09/29/2023 3:12 PM SUPERVISOR BENZENE REFINING) Hemoglobin A1C, POC 5.6 % Blood spot 09/29/2023 3:12 PM SUPERVISOR BENZENE REFINING Mahin Morataya MD POINT OF CARE TEST ORDERABLES Fi nal Result * POCT lipid panel (10/25/2019 2:10 PM SUPERVISOR BENZENE REFINING) Cholesterol, POC 186 mg/dL HDL, POC 56 mg/dL Triglycerides, POC 227 mg/dL LDL Cholesterol POC 85 mg/dL Chol/HDL Ratio, POC 3.3 Non-HDL Cholesterol, POC 130 mg/dL Cholesterol Total, POC 186 mg/dL Blood specimen (specimen) 10/25/2019 2:10 PM SUPERVISOR BENZENE REFINING Mahin Morataya MD POINT OF CARE TEST [...] COMMERCIAL GENERIC COMMERCIAL GENERIC MEDICARE Care Teams Movie Projectionist Relationship Specialty Start Date End Date Clayton Angulo MD PCP - General 12/10/16 Ac Butler MD [address] [address] Consulting Physician Cardiology 07/13/18 Young Juarez MD [address] [address] Referring Physician Nephrology 03/08/23 [place] [address] [address] Consulting Physician Endocrinology Diabetes & Metabolism 03/08/23
--- OUTSIDE RECORDS SUMMARY | 2025-06-12 12:18 | XMS_ITS | Clinical Summary ---
Author Organization [facility] Address [address] [place] [address] Phone Care Team Providers Care Candle Maker Name Role Phone Clayton Angulo MD Primary Care Provider [phone] Allergies Active Allergy Reactions Criticality Noted Date [...] Comments Blood Pressure 138/80 08/30/2022 11:05 AM UPHOLSTERY REPAIRER Pulse 84 08/30/2022 11:05 AM UPHOLSTERY REPAIRER Temperature 34.9 C (94.9 F) 08/30/2022 11:05 AM UPHOLSTERY REPAIRER Respiratory Rate - - Oxygen Saturation - - Inhaled Oxygen Concentration - - Weight 75.8 kg (167 lb) 08/30/2022 11:05 AM UPHOLSTERY REPAIRER Height 162.6 cm (5' 4) 08/30/2022 11:05 AM UPHOLSTERY REPAIRER Body Mass Index 28.67 08/30/2022 11:05 AM UPHOLSTERY REPAIRER Plan of Treatment Health Maintenance Due Date Last Done Comments COVID-19 Vaccine (2024- 6 season) 2025 11/28/2020, 10/31/2020, 10/24/2019 Influenza Vaccine (#1) 2025 , 06/13/2019, 07/02/2014, Additional history exists Pneumococcal PPSV23/PCV13 65 + Years / Low and Medium Risk Completed 09/20/2014, 06/12/2014 Insurance MEDICARE [employer] on file Care Teams Candle Maker Relationship Specialty Start Date End Date Clayton Angulo MD [address] [address] PCP - General Internal Medicine 02/26/19
--- OUTSIDE RECORDS SUMMARY | 2025-06-12 12:18 | XMS_ITS | Clinical Summary ---
Author Organization [facility] Address [address], [facility] [address] [place] [address] Phone Care Team Providers Care Religious Healer Name Role Phone Clayton Angulo MD Primary Care Provider [phone] Allergies Active Allergy Reactions Criticality Noted Date [...] age to complete this topic Insurance MEDICARE Connotate Care Teams Religious Healer Relationship Specialty Start Date End Date Clayton Angulo MD [address] [address] PCP - General Internal Medicine 05/19/16
--- OUTSIDE RECORDS SUMMARY | 2025-06-12 12:18 | XMS_ITS | Encounter Summary ---
Author Organization [facility] Address [address] [place] [phone] Phone Care Team Providers Care Stock Parts Inspector Name Role Phone Clayton Angulo MD Primary Care Provider Reason for Visit * Reason Comments Med Refill Encounter Details Date Type Department Care Team (Late st Contact Info) Description 10/05/2020 Refill [facility], [address] [address] Aissatou Wiseman MD [address] [facility], [address] [address] Social History Tobacco Use Types Packs/Day Years [...] on file Legal Sex Female 10:08 AM [facility] Gender Identity Not on file Sexual Orientation Not on file documented as of this encounter Plan of Treatment Not on file documented as of this encounter Visit Diagnoses Not on filedocumented in this encounter Care Teams Stock Parts Inspector Relationship Specialty Start Date End Date Clayton Angulo MD [address] [facility] [address] [place] [phone] PCP - General Internal Medicine 02/26/19 documented as of this encounter
--- OUTSIDE RECORDS SUMMARY | 2025-06-12 12:18 | XMS_ITS | Clinical Summary ---
Author Organization [facility] Address [address] [facility] [place] [address] Care Team Providers Care Bulb Packer Name Role Phone Clayton Angulo MD Primary Care Provider [phone] Source Comments [facility],non-owned Affiliates and Associated Physician Practices is amultiple site organization consisting of ambulatory clinics and hospital sitesin [place], [place]. This disclosure is being madepursuant to the Care Everywhere program and may not contain all information available regarding this patient. Last updated 18.[facility] [employer] Immunizations Immunization Administration Dates Next Due INFLUENZA VACCINE, HIGH-DOSE , QUADR. 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
--- OUTSIDE RECORDS SUMMARY | 2025-06-12 12:18 | XMS_ITS | Encounter Summary ---
Author Organization [facility] Address [address] [place] [address] Phone Care Team Providers Care Seed Tester Name Role Phone Clayton Angulo MD Primary Care Provider [phone] Reason for Visit * Reason Comments Med Refill Encounter Details Date Type Department Care Team (Late st Contact Info) Description 04/24/2019 Refill [facility] Nephrology and Hypertension [address] [facility], [address] [facility] [place] [address] Young Juarez MD [address] [facility], [address] [place] [address] Social History Tobacco Use Types Packs/Day Years [...] on file Legal Sex Female 10:08 AM [facility] Gender Identity Not on file Sexual Orientation Not on file documented as of this encounter Plan of Treatment Not on file documented as of this encounter Visit Diagnoses Not on filedocumented in this encounter Care Teams Seed Tester Relationship Specialty Start Date End Date Clayton Angulo MD [address] [phone] PCP - General Internal Medicine 02/26/19 documented as of this encounter
--- NOTE | 2025-06-12 12:56 | ECG_ITS ---
Test Date: 2025-06-12 13:12:54 Measurements Intervals [place] Rate: 74 P: 47 CA: 152 QRS: 18 QRSD: 95 T: 39 QT: 456 QTc: 508 Interpretive Statements SINUS RHYTHM BORDERLINE T WAVE ABNORMALITY- ANTERIOR LEADS BORDERLINE ECG Compared to ECG 06/12/2025 09:54:05 NO SIGNIFICANT CHANGE Electronically Signed On 06-12-2025 13:14:45 CDT by Darryl Cline D.O.
--- NOTE | 2025-06-12 13:16 | PM.IMHP ---
H&P: HPI History of Present Illness Date/Time: 06/12/25 13:16 Chief Complaint: Shortness of Breath Narrative: 84 y/o F with PMH of anemia, asthma-COPD, CHF, DM2, GERD, gout, CKD S4, HTN, and sleep apnea presents here with shortness of breath. The patient presents here via personal vehicle with her sons on 06/12 for further evaluation of shortness of breath. The patient reports onset approx 2 weeks ago. However, worsened last night while she was at rest. She used her home inhalers with only partial relief. This morning while she was getting dressed she became increasingly short of breath. She reported associated lower extremity edema, weight gain (March was 136 lbs, now 153 lbs today - family also reports her appetite has increased with some recent medication changes), and cough (intermittently productive). Denies fever, chills, nausea, vomiting, diarrhea, or abdominal pain. She reports a history of congestive heart failure and was previously on Lasix, however this was discontinued in March and she was supposed to be started on SCDs, however she has not received these and they were prescribed for her LE edema. Sons are in the process of moving her to [place] where the patient's sons are trying to move into one home there (originally from there), provider there made the changes due to her kidney function. The patient denies dark/tarry stools or BRBPR. The patient arrived to the emergency department in significant respiratory distress. She was tachycardic in the 120s, tachypneic, and unable to speak in full sentences. She received Lasix, a DuoNeb, and was started on BiPAP. Heart rate and tachypnea has improved and patient is reporting subjective improvement. Initial VS at presentation: 98? F, HR 122, RR 26, 201/109, and 89% on room air. Subsequently placed on BiPAP, now improved to a HR 76, R 14, and satting 100%. ED workup showed: WBC 11.8, hemoglobin 7.3, INR 1.2, creatinine 2.52 and GFR 18 (2.02 and 23 on 11/15/2024), CO2 13, gap 15, glucose 244, BNP 57181, initial troponin 0.022, UA showed 3+ protein and 3-5 RBC otherwise unremarkable, viral PCR negative. Initial ABG showed a pH of 7.196, HC03 14.5, O2 saturation 93.4% on room air. CXR showed CHF and superimposed probable pneumonia. EKG showed sinus tachycardia with occasional PVCs, nonspecific ST and T-wave abnormalities inferior/lateral leads, baseline artifact. Review of Systems Review of Systems: All systems reviewed & are unremarkable except as noted in HPI and below [facility] Past Medical History Medical History (Updated 06/12/25 @ 14:02 by Flora Perez APRN) Obstructive sleep apnea Previously noncompliant with CPAP History of CVA (cerebrovascular accident) (~11/2023) Chronic kidney disease, stage 4 (severe) Anxiety and depression History of shingles Tuberculosis Age 16 Myocardial infarction (~2015) Alzheimer's dementia Anemia Unintentional weight loss Osteitis pubis Asthma-COPD overlap syndrome Hemoglobin A1c less than 7.0% 6.7% 09/2020 5.1% 11/2024 Adenomatous colon polyp Essential hypertension Type 2 diabetes mellitus Congestive heart failure Ventral incisional hernia Disorder of vitamin B12 Edema Pure hypercholesterolemia Allergic rhinitis GERD (gastroesophageal reflux disease) Gout Fracture of humerus Disorder of rotator cuff 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 Generalized osteoarthritis of multiple sites Seronegative spondyloarthropathy (~2016) Surgical History Surgical History History of left cataract extraction History of right cataract extraction Family History Family History Mother Hypertension Unknown Family history of stroke Other Diabetes mellitus Family history of allergic disorder Family history of cardiovascular disease Family history of sleep apnea Social History Social History Smoking status: Never smoker Tobacco type: cigarettes Second hand tobacco smoke exposure: No Alcohol intake: never Substance use: never Substance use type: does not use Do You Feel Safe in your Home?: Yes Lack of Transportation: No Lack of Food: Never True Current Housing: I Have Housing Concerned About Future Housing: No Difficulty Paying Gas/Electric Bills: No Difficulty Paying for Meds: No Currently Unemployed: No Education: High School Diploma/GED Difficulty w/ Childcare or Family Care: No Living arrangements: with family Occupation/Education: retired Gender identity (if verbalized by the patient): Female Sexual Orientation (if Verbalized by the Patient): Straight or Heterosexual Spiritual care concerns: No Meds Home Medications and Allergies Home Medications ?Medication ?Instructions ?Recorded ?Confirmed ?Type clopidogrel 75 mg tablet 75 mg PO DAILY #30 tabs 11/10/24 06/12/25 Rx escitalopram oxalate 10 mg tablet 10 mg PO DAILY #60 tabs 11/10/24 06/12/25 Rx nifedipine 90 mg tablet,extended 90 mg PO DAILY #90 tabs 11/10/24 06/12/25 Rx release pantoprazole 40 mg tablet,delayed 40 mg PO DAILY #30 tabs 11/10/24 06/12/25 Rx release blood sugar diagnostic (OneTouch #1 pkg 11/14/24 06/12/25 Rx Verio test strips) blood-glucose meter (OneTouch #1 pkg 11/14/24 06/12/25 Rx Verio Flex Meter) lancets 30 gauge (OneTouch Delica #1 pkg 11/14/24 06/12/25 Rx Plus Lancet) metoprolol tartrate 100 mg tablet See Rx Instructions .Route 11/19/24 06/12/25 Rx .COMPLEX #180 tabs ergocalciferol (vitamin D2) 1,250 50,000 unit PO WEEKLY 06/12/25 06/12/25 History mcg (50,000 unit) capsule quetiapine 25 mg tablet 25 mg PO BID 06/12/25 06/12/25 History vitamin D3 125 mcg (5,000 1 cap PO DAILY 06/12/25 06/12/25 History unit)-vitamin K2 180 mcg capsule Allergies Allergy/AdvReac Type Severity Reaction Status Date / Time atorvastatin (From Lipitor) Allergy Mild myalgia Verified 06/12/25 14:36 fluvastatin (From Lescol) Allergy Mild Unknown Verified 06/12/25 14:36 pravastatin (From Pravachol) Allergy Mild Unknown Verified 06/12/25 14:36 rosuvastatin (From Crestor) Allergy Mild myalgia Verified 06/12/25 14:36 Penicillins Allergy Unknown Unknown Verified 06/12/25 14:36 iodine AdvReac Intermediate Unknown Verified 06/12/25 14:36 Vital Signs Vital Signs - 24 hr 06/12/25 09:50 06/12/25 10:00 06/12/25 10:15 Temperature 98 F Pulse Rate 122 H 96 Respiratory Rate 26 H 25 H Blood Pressure 201/109 H Pulse Oximetry 95 89 L 99 Oxygen Delivery Nasal Cannula Room Air BiPAP Oxygen Flow Rate 2 06/12/25 10:15 06/12/25 10:26 06/12/25 10:32 Temperature Pulse Rate 90 91 Respiratory Rate 22 H 20 Blood Pressure 191/70 H Pulse Oximetry 99 Oxygen Delivery BiPAP Oxygen Flow Rate 06/12/25 11:20 06/12/25 11:22 06/12/25 11:28 Temperature Pulse Rate 81 81 78 Respiratory Rate 24 H 24 H 19 Blood Pressure 165/84 H Pulse Oximetry 100 100 Oxygen Delivery BiPAP Oxygen Flow Rate 06/12/25 12:01 06/12/25 13:10 Temperature Pulse Rate 73 76 Respiratory Rate 19 24 H Blood Pressure 149/67 H Pulse Oximetry 100 100 Oxygen Delivery BiPAP Oxygen Flow Rate Exam Const: General: comfortable and no acute distress Other: , female, elderly, nontoxic appearance HENMT: Face/Nose/Sinus: Normal nares present Mouth: Yes moist mucous membranes Eyes: General: appearance normal, both eyes and all related structures Sclera: sclerae normal Pupils: Equal, round and reactive pupils present EOM: EOMs intact bilaterally Resp: Other: Mild tachypnea without accessory muscle use. Bibasilar crackles, left side remains diminished. No wheezing. Cardio: Rate: regular rate Rhythm: regular rhythm Other: S1-S2 present without murmur, rub, ectopy GI: Other: Abdomen soft, nondistended, nontender. Normoactive bowel sounds in all quadrants. Skin: General skin exam: normal color and no rashes or lesions noted Wounds: no wounds Neuro: Speech: normal speech Motor exam (neuro): 5/5 motor strength present throughout Sensory Exam: normal sensation Other: A&O x4 Extrem: Other: +1 pitting edema, symmetric. Psych: Mental Status: mental status grossly normal Affect: normal affect Other: Fair insight and judgment, very pleasant H&P: Results Labs Labs: Short CBC 06/12/25 Range/Units 10:02 WBC 11.8 H (4.5-10.0) K/mm3 Hgb 7.3 L (12.0-15.0) g/dL Hct 24.9 L (37.0-47.0) % Plt Count 336 (150-375) k/mm3 BMP 06/12/25 10:02 Sodium 142 Potassium 4.5 Chloride 114 H Carbon Dioxide 13 L BUN 35 H Creatinine 2.52 H Glucose 244 H Calcium 8.8 Cardiac Enzymes 06/12/25 Range/Units 10:02 Troponin I 0.022 (0.000-0.034) ng/mL Liver Function 06/12/25 Range/Units 10:02 Total Bilirubin 0.3 (0.2-1.3) mg/dL AST 23 (14-36) U/L ALT 14 (6-35) U/L Alkaline Phosphatase 94 (38-126) U/L Albumin 3.7 (3.5-5.1) g/dL Urine 06/12/25 Range/Units 11:07 Urine Color Yellow (Yellow) Urine Appearance Clear (Clear) Urine pH 5.5 (5.0-9.0) Ur Specific [place] 1.012 (1.001-1.035) Urine Protein 3+ H (Negative) mg/dL Urine Glucose (UA) Negative (Negative) mg/dL Assessment and Plan Assessment and plan (1) Acute hypoxemic respiratory failure: Code(s): J96.01 - Acute respiratory failure with hypoxia Status: Acute Assessment and Plan: The patient arrived to the emergency department in acute respiratory distress on 06/12. Patient significantly tachycardic, tachypneic, and unable to speak in full sentences. Noted to be hypoxic at 89% on room air. Previously did not require supplemental oxygen. Reviewed a CXR, concerning for CHF with superimposed pneumonia. ABG showed acidosis, mildly reduced HC03, and O2 saturation 93.4% on room air. Patient started on diuresis, DuoNebs, and placed on BiPAP. Now subjectively improved and vital signs stabilized. Acute respiratory failure likely multifactorial including CHF exacerbation, pneumonia, and COPD exacerbation. May have anemia component. - continue BiPAP, repeat ABG showing improved acidosis, low CO2, and improving HC03. - started on broad-spectrum ABX for CPAP - ceftriaxone and doxycycline on 06/12. reviewed previous history, in October of 2024 the patient was treated for aspiration pneumonia. Will discuss with family possibility, may need exchanging of antibiotics to cover. - started on DuoNebs jaz and prednisone 40 mg x 5 days - BNP elevated and imaging concerning for CHF exacerbation, started on Lasix 40 mg b.i.d.. Monitoring I&Os and daily weights. Will need close monitoring of renal function as she has a history of CKD with a current superimposed SOLOMON. - noted to be anemic upon admission, hemoglobin 7.3. Baseline appears to be 8-9, see plan below. - admission to IMU for close monitoring (2) Acute exacerbation of CHF (congestive heart failure): Qualifiers: Heart failure type: unspecified Qualified Code(s): I50.9 - Heart failure, unspecified Code(s): I50.9 - Heart failure, unspecified Status: Acute Assessment and Plan: Patient has hx of CHF, taken off diuresis in March of 2025. Reviewed chart, most recent echo completed in October of 2024 which showed normal biventricular size, systolic function, no significant valvular disease, and atrial septum appears aneurysmal however there was no [id number] shunt shunt. BNP currently elevated at 15,300. - update echo - started on diuresis: Lasix 40 mg b.i.d. - monitor I&Os daily weights - trend renal function, currently has SOLOMON superimposed on CKD (3) Pneumonia: Qualifiers: Laterality: bilateral Lung location: unspecified part of lung Pneumonia type: due to unspecified organism Qualified Code(s): J18.9 - Pneumonia, unspecified organism Code(s): J18.9 - Pneumonia, unspecified organism Status: Acute Assessment and Plan: CXR concerning for bibasilar pneumonia. Does have history of aspiration pneumonia in October of 2024. Current concerns for aspiration? - started on ceftriaxone and doxycycline on 06/12 - check sputum culture - MRSA PCR negative in October 2024 - supportive care: Mucinex jaz, Tessalon Perles p.r.n., DuoNebs jaz, Tylenol p.r.n. (4) Asthma-COPD overlap syndrome: Code(s): J44.9 - Chronic obstructive pulmonary disease, unspecified Status: Acute Assessment and Plan: Wheezing upon arrival, improved with DuoNeb and BiPAP. - Duonebs [facility] hospital - prednisone 40 mg x5 days (5) Acute kidney injury superimposed on CKD: Code(s): N17.9 - Acute kidney failure, unspecified; N18.9 - Chronic kidney disease, unspecified Status: Acute Assessment and Plan: Patient has history of CKD stage 4. Creatinine 2.52, BUN 35, GFR 18 upon admission on 06/12. Previously showed a creatinine of 2.02 and GFR of 23 in November of 2024. Suspect SOLOMON secondary to CHF exacerbation, started on diuresis. May need further workup if no improvement with reduction in volume overload. - monitor I&Os - trend renal function (6) Anemia: Qualifiers: Anemia type: due to chronic kidney disease Chronic kidney disease stage: stage 4 (GFR 15-29) Qualified Code(s): N18.4 - Chronic kidney disease, stage 4 (severe); D63.1 - Anemia in chronic kidney disease Code(s): D64.9 - Anemia, unspecified Status: Acute Assessment and Plan: History of anemia secondary to CKD. Currently has SOLOMON superimposed on CKD, may be source of patient's worsening anemia. Could also be dilutional from CHF exacerbation. - Hgb 7.3 upon admission on 06/12 - baseline hemoglobin 8-9 - check iron, TIBC, ferritin, B12, folic acid, stool occuly and TSH - transfuse if <7 - trend H&H (7) HTN (hypertension): Qualifiers: Hypertension type: primary hypertension Qualified Code(s): I10 - Essential (primary) hypertension Code(s): I10 - Essential (primary) hypertension Status: Chronic Assessment and Plan: - chronic, currently 156/98. Initially 201/109, improved with diuresis and now stable. - continue home medications: Metoprolol, Nifedipine - monitor (8) Type 2 diabetes mellitus with hyperglycemia: Qualifiers: Diabetes mellitus supervisor intermediates insulin use: without supervisor intermediates use Qualified Code(s): E11.65 - Type 2 diabetes mellitus with hyperglycemia Code(s): E11.65 - Type 2 diabetes mellitus with hyperglycemia Status: Resolved Assessment and Plan: Previous hx of DM2, no longer on diabetic medications. A1C 5.1% on 11/15/2024. Did have hypoglycemia in November of 2024. - hypoglycemia protocol ordered - glucose checks prn Plan QTC on most recent EKG 508. initially started on azithromycin, exchanged to doxycycline. Escitalopram held. Will continue Seroquel. Diet: heart healthy GI Prophylaxis: n/a DVT Prophylaxis: Lovenox SQ IV fluids: none Lines/Tubes: peripheral IV Code Status: full code Quality VTE Prophylaxis VTE prophylaxis: pharmacologic ordered Hospitalist [facility] Advance Care Plan I have confirmed that the patient's Advanced Care Plan is present, code status is documented, or surrogate decision maker is listed in patient medical record.: Yes Medication Reconciliation I have utilized all available resources to obtain, update and review the patients current medications (includes all prescriptions, OTC, herbals, cannabis, and nutritional supplements).: Yes
[2025-06-12 13:19] LABS: Alveolar/Arterial O2 Gradient 71.0 mmHg; Carboxyhemoglobin 0.9 % THb (0-2.0); Fractional Inspired Oxygen 32 %; HCO3 ABG 18.1 mEq/l (22.0-26.0); Methemoglobin ABG 0.2 %THb (0-1.5); Oxygen Content ABG 10.8 %vol (16.0-22.0); Oxygen Saturation ABG 98.2 % (95.0-100.0); PCO2 ABG 33.3 mmHg (35.0-45.0); PO2 ABG 118.2 mmHg (80.0-100.0); PO2 FiO2 Ratio Arterial Blood 3.69 %; Reduced Hemoglobin 1.5 %THb (0-5.0)
[2025-06-12 13:21] LABS: Modified Allen's Test Pass; Site Drawn LEFT RADIAL
[2025-06-12 13:37] LABS: Troponin I 0.049 ng/mL (0.000-0.034)
--- NOTE | 2025-06-12 14:13 | ADMGEN ---
This patient, Madyson Giraldo, was admitted to IMU Room 232-01. Patient/family oriented to hospital policies and general routines including ID bracelet, bed and alarms, visiting hours, pain management, procedures, bathroom and other care routines, personal items, smoking policy, room service/diet, and visiting hours. Information on how to activate the Rapid Response Team has been discussed. Patient/Family are encouraged to report perceived risks to care and to ask questions if they do not understand what they are told or what they should do.
[2025-06-12] MEDS: guaiFENesin 12 HR 600 MG TABCR PO ×2 (14:37→20:59)
[2025-06-12] MEDS: IPRATROPIUM 0.5 MG/ALBUTEROL SULFATE 2.5 MG (BASE) AMPUL.NEB 3 ML INHALATION ×2 (15:13→19:25)
[2025-06-12 16:22] LABS: Troponin I 0.077 ng/mL (0.000-0.034)
[2025-06-12 16:36] LABS: Iron 53 ug/dL (37-170)
[2025-06-12 16:43] LABS: Percent Iron Saturation 19 % (20-50)
[2025-06-12 17:05] LABS: Thyroid Stimulating Hormone Reflex 1.490 uIU/mL (0.465-4.68)
[2025-06-12 17:09] LABS: Ferritin 19.60 ng/mL (11.1-264)
[2025-06-12 17:39] LABS: Vitamin B12 261.0 pg/mL (239-931)
--- NOTE | 2025-06-12 18:51 | PC.NURSE ---
Erica placed back on at 1850.
[2025-06-12] MEDS: DOXYCYCLINE IV 100 MG in SODIUM CHLORIDE 0.9% IV 100 ML IVPB (20:59)
[2025-06-12] MEDS: METOPROLOL TARTRATE 50 MG TAB 100 MG PO (20:59)
[2025-06-13] VITALS (35 sets, daily range): BP systolic 142–177; BP diastolic 58–82; PULSE 64–82; RESP 16–25; TEMP 36.4–36.9; O2SAT 96–100
--- NOTE | 2025-06-13 | ECHO_ITS ---
Patient Info Name: Madyson Giraldo Age: 84 years : 1940 Gender: Female Ht: 64 in Wt: 156 lbs BSA: 1.80 m2 HR: 75 bpm BP: 167 / 71 mmHg Technical Quality: Good Exam Date: 06/13/2025 4:00 PM Patient Status: I Admit Date: 06/12/2025 Exam Type: CA echo doppler color flow Complete two-dimensional, color flow and Doppler transthoracic echocardiogram is performed. Staff Referring Physician: Alejo Nolan Material Planner: Meir Dennis III Attending Provider: Tatianna Sandoval Summary 1. Complete two-dimensional, color flow and Doppler transthoracic echocardiogram is performed. 2. Left ventricular chamber dimension is mildly enlarged. 3. Left ventricular systolic function is moderately reduced, estimated at 35-40. 4. There is moderately increased left ventricular wall thickness. 5. The left ventricular diastolic function is grade II diastolic dysfunction. 6. Left atrial chamber dimension is moderately enlarged. 7. There is moderate mitral valve regurgitation. 8. There is mild tricuspid valve regurgitation. 9. No pulmonary hypertension, estimated pulmonary arterial systolic pressure is 29 mmHg. 10. There is mild pulmonic regurgitation. 11. Pleural effusion. Left Ventricle Left ventricular chamber dimension is mildly enlarged. Left ventricular systolic function is moderately reduced, estimated at 35-40. There is moderately increased left ventricular wall thickness. Left ventricular septal wall motion is normal. The left ventricular diastolic function is grade II diastolic dysfunction. Right Ventricle Right ventricular chamber dimension is normal. Right ventricular systolic function is normal. Left Atria Left atrial chamber dimension is moderately enlarged. Right Atria Right atrial chamber dimension is normal. Aortic Valve The aortic valve is trileaflet. There is no aortic valve sclerosis. There is no aortic valve stenosis. There is no aortic valve regurgitation. Pulmonic Valve The pulmonic valve is normal. There is no pulmonic valve stenosis. There is mild pulmonic regurgitation. Mitral Valve The mitral valve has normal leaflets. There is no mitral valve stenosis. There is moderate mitral valve regurgitation. Tricuspid Valve The tricuspid valve leaflets are normal. There is no significant tricuspid valve stenosis. There is mild tricuspid valve regurgitation. No pulmonary hypertension, estimated pulmonary arterial systolic pressure is 29 mmHg. Pericardium/Pleural The pericardium appears normal. There is no pericardial effusion. Inferior Vena Cava Not well visualized inferior vena cava. Aorta The aortic root size at the sinus of Valsalva is normal. The prox ascending aorta size is normal. Left Ventricular Outflow Tract Name Value Normal LVOT 2D LVOT Diameter 2.1 cm LVOT Doppler LVOT Peak Velocity 90 cm/s LVOT Peak Gradient 3 mmHg LVOT Mean Gradient 2 mmHg LVOT VTI 20 cm LVOT VTI/AV VTI Ratio 0.7 LVOT Stroke Volume 68 ml LVOT CO 4.7 l/min LVOT CI 2.6 l/min/m2 Pulmonic Valve Name Value Normal PV Doppler PV Peak Velocity 104 cm/s PV Peak Gradient 4 mmHg PV Mean Gradient 2 mmHg PV Regurgitation Doppler DE Peak End Diastolic Velocity 154 cm/s Mitral Valve Name Value Normal MV Doppler MV Peak Gradient 5 mmHg MV Mean Gradient 2 mmHg MV Area (Cont Eq VTI) 2.4 cm2 MV Regurgitation Doppler MR Peak Gradient 128 mmHg Tricuspid Valve Name Value Normal TV Regurgitation Doppler TR Peak Velocity 219 cm/s TR Peak Gradient 19 mmHg Estimated PAP/RSVP RA Pressure 10 mmHg <=5 PA Systolic Pressure 29 mmHg <36 RV Systolic Pressure 29 mmHg <36 TV Annular TDI TV Lateral Deepa s' Velocity 9.1 cm/s >=9.5 Aortic Valve Name Value Normal AV Doppler AV Peak Velocity 115 cm/s AV Peak Gradient 5 mmHg AV Mean Gradient 3 mmHg AV VTI 28 cm AV Area (Cont Eq VTI) 2.5 cm2 >=3.0 AV Area (Cont Eq Arias) 2.7 cm2 AV DI (Arias) 0.78 AV Regurgitation 2D LVOT Area 3.5 cm2 Ventricles Name Value Normal LV Dimensions 2D/MM IVS Diastolic Thickness (2D) 1.0 cm 0.6-1.0 LVID Diastole (2D) 5.3 cm 3.8-5.2 LVIW Diastolic Thickness (2D) 1.1 cm 0.6-0.9 LVID Systole (2D) 3.9 cm 2.2-3.5 LVOT Diameter 2.1 cm LV Mass (2D Cubed) 213.98 g 67.00-162.00 LV Mass Index (2D Cubed) 119 g/m2 43-95 Relative Wall Thickness (2D) 0.41 <=0.42 LV Fractional Shortening/Ejection Fraction 2D/MM LV Fractional Shortening (2D) 26 % 27-45 LV EF (2D Teichholz) 50 % LV Diastolic Volume (4C MOD) 99 ml LV EF (4C MOD) 40 % LV Diastolic Volume (2C MOD) 89 ml LV EF (2C MOD) 42 % LV Diastolic Volume (BP MOD) 98 ml 46-106 LV Diastolic Volume Index (BP MOD) 54 ml/m2 29-61 LV Systolic Volume (BP MOD) 56 ml 14-42 LV Systolic Volume Index (BP MOD) 31 ml/m2 8-24 LV EF (BP MOD) 43 % 54-74 LV Diastolic Length (4C) 7.3 cm LV Systolic Length (4C) 6.3 cm LV Stroke Volume (4C MOD) 40 ml Atria Name Value Normal LA Dimensions LA Volume (4C A-L) 84 ml LA Volume (BP A-L) 95 ml RA Dimensions RA Systolic Major [place] Length (4C) 6.0 cm 2.2-2.8 RA Area (4C) 25.9 cm2 <=18.0 Report Signatures
[2025-06-13] MEDS: IPRATROPIUM 0.5 MG/ALBUTEROL SULFATE 2.5 MG (BASE) AMPUL.NEB 3 ML INHALATION ×4 (02:03→20:02)
[2025-06-13 04:32] LABS: Hematocrit 21.0 % (37.0-47.0); Immature Granulocyte Percent A 0.4 % (0-0.5); Lymphocytes Absolute Auto 1.05 K/mm3 (0.9-3.2); Mean Corpuscular HGB Conc 30.5 g/dl (32-36); Mean Corpuscular Hemoglobin 27.6 pg (26-34); Mean Corpuscular Volume 90.5 fl (80-100); Nucleated Red Blood Cells Absolute Auto 0.000 K/mm3 (0.0-0.012); Nucleated Red Blood Cells Perc 0.0 % (0.0-0.2); Platelet Count Result 238 k/mm3 (150-375); Red Blood Count 2.32 M/mm3 (4.2-5.4); White Blood Count 7.4 K/mm3 (4.5-10.0)
[2025-06-13 04:36] LABS: Hemoglobin 6.4 g/dL (12.0-15.0)
[2025-06-13 04:53] LABS: Alanine Aminotransferase 11 U/L (6-35); Albumin Level 3.3 g/dL (3.5-5.1); Alkaline Phosphatase 95 U/L (38-126); Anion Gap 9 mmol/L (4-12); Aspartate Amino Transferase 27 U/L (14-36); Bilirubin,Total 0.3 mg/dL (0.2-1.3); Blood Urea Nitrogen 47 mg/dL (7-17); Calcium 8.6 mg/dL (8.4-10.2); Carbon Dioxide 18 mmol/L (22-30); Chloride 111 mmol/L (98-107); Estimated CRCL calculation 11 ml/min; Estimated Glomerular Filt Rate 15; Glucose 117 mg/dL (65-110); Potassium 5.0 mmol/L (3.4-5.0); Sodium 138 mmol/L (137-145); Total Protein 6.7 g/dL (6.3-8.2)
[2025-06-13] MEDS: TUBING, BLOOD PLUM PUMP TUBING 1 EACH XX (07:33)
[2025-06-13] MEDS: SODIUM CHLORIDE 0.9% IV 250 ML 30 ML IV CONT (07:33)
[2025-06-13] MEDS: CLOPIDOGREL BISULFATE 75 MG TABLET PO (08:16)
[2025-06-13] MEDS: guaiFENesin 12 HR 600 MG TABCR PO ×2 (08:16→21:00)
[2025-06-13] MEDS: PANTOPRAZOLE 40 MG TABLET PO (08:16)
[2025-06-13] MEDS: METOPROLOL TARTRATE 50 MG TAB 100 MG PO ×2 (08:16→21:00)
[2025-06-13] MEDS: DOXYCYCLINE IV 100 MG in SODIUM CHLORIDE 0.9% IV 100 ML IVPB ×2 (08:18→20:59)
[2025-06-13] MEDS: FUROSEMIDE INJ 40 MG/4 ML VIAL IV PUSH ×2 (08:18→21:00)
[2025-06-13 08:38] LABS: Hematocrit 24.4 % (37.0-47.0); Hemoglobin 7.6 g/dL (12.0-15.0)
[2025-06-13] MEDS: cefTRIAXone 1 GM in SODIUM CHLORIDE 0.9% IV 50 ML 100 ML IVPB (10:47)
[2025-06-13] MEDS: CYANOCOBALAMIN INJ 1,000 MCG/ML VIAL 1000 MCG IM (10:47)
[2025-06-13] MEDS: IRON SUCROSE COMPLEX 400 MG, IRON SUCROSE COMPLEX 100 MG in SODIUM CHLORIDE 0.9% IV 250 ML 78.57 MG IVPB (10:47)
--- NOTE | 2025-06-13 14:42 | P.PNIM_ITS ---
Progress Note: A&P Assessment and Plan (1) Acute hypoxemic respiratory failure: Code(s): J96.01 - Acute respiratory failure with hypoxia Status: Acute Assessment and Plan: CHF and Pneumonia CXR reviewed no oxygen at baseline, now on 2 liters oxygen s/p BiPAP Continue Rocephin and Doxycycline, and lasix monitor (2) Acute exacerbation of CHF (congestive heart failure): Qualifiers: Heart failure type: unspecified Qualified Code(s): I50.9 - Heart failure, unspecified Code(s): I50.9 - Heart failure, unspecified Status: Acute Assessment and Plan: Patient has hx of CHF, taken off diuresis in March of 2025. Reviewed chart, most recent echo completed in October of 2024 which showed normal biventricular size, systolic function, no significant valvular disease, and atrial septum appears aneurysmal however there was no [id number] shunt shunt. BNP currently elevated at 15,300. - update echo - started on diuresis: Lasix 40 mg b.i.d. - monitor I&Os daily weights - trend renal function, currently has SOLOMON superimposed on CKD (3) Pneumonia: Qualifiers: Laterality: bilateral Lung location: unspecified part of lung Pneumonia type: due to unspecified organism Qualified Code(s): J18.9 - Pneumonia, unspecified organism Code(s): J18.9 - Pneumonia, unspecified organism Status: Acute Assessment and Plan: CXR concerning for bibasilar pneumonia. Does have history of aspiration pneumonia in October of 2024. Current concerns for aspiration? - started on ceftriaxone and doxycycline on 06/12 - check sputum culture - MRSA PCR negative in October 2024 - supportive care: Mucinex mp, Tessalon Perles p.r.n., DuoNebs mp, Tylenol p.r.n. (4) Asthma-COPD overlap syndrome: Code(s): J44.9 - Chronic obstructive pulmonary disease, unspecified Status: Acute Assessment and Plan: Wheezing upon arrival, improved with DuoNeb and BiPAP. - [facility] - prednisone 40 mg x5 days (5) Acute kidney injury superimposed on CKD: Code(s): N17.9 - Acute kidney failure, unspecified; N18.9 - Chronic kidney disease, unspecified Status: Acute Assessment and Plan: Patient has history of CKD stage 4. Creatinine 2.52, BUN 35, GFR 18 upon admission on 06/12. Previously showed a creatinine of 2.02 and GFR of 23 in November of 2024. Suspect SOLOMON secondary to CHF exacerbation, started on diuresis. May need further workup if no improvement with reduction in volume overload. - monitor I&Os - trend renal function (6) Anemia: Qualifiers: Anemia type: due to chronic kidney disease Chronic kidney disease stage: stage 4 (GFR 15-29) Qualified Code(s): N18.4 - Chronic kidney disease, stage 4 (severe); D63.1 - Anemia in chronic kidney disease Code(s): D64.9 - Anemia, unspecified Status: Acute Assessment and Plan: History of anemia secondary to CKD. Currently has SOLOMON superimposed on CKD, may be source of patient's worsening anemia. Could also be dilutional from CHF exacerbation. - Hgb 7.3 upon admission on 06/12 - baseline hemoglobin 8-9 - check iron, TIBC, ferritin, B12, folic acid, stool occuly and TSH - transfuse if <7 - trend H&H (7) HTN (hypertension): Qualifiers: Hypertension type: primary hypertension Qualified Code(s): I10 - Essential (primary) hypertension Code(s): I10 - Essential (primary) hypertension Status: Chronic Assessment and Plan: - chronic, currently 156/98. Initially 201/109, improved with diuresis and now stable. - continue home medications: Metoprolol, Nifedipine - monitor (8) Type 2 diabetes mellitus with hyperglycemia: Qualifiers: Diabetes mellitus supervisor gate services insulin use: without supervisor gate services use Qualified Code(s): E11.65 - Type 2 diabetes mellitus with hyperglycemia Code(s): E11.65 - Type 2 diabetes mellitus with hyperglycemia Status: Resolved Assessment and Plan: Previous hx of DM2, no longer on diabetic medications. A1C 5.1% on 11/15/2024. Did have hypoglycemia in November of 2024. - hypoglycemia protocol ordered - glucose checks prn Plan iron deficiency anemia Hb 6.4 on admission, repeat 7.6 Isat 19, and ferritin 19, b12 261 Started on IV iron 500/1000 MMA and Homocysteine pending started on IM b12 monitor H and H FOBT pending Gi consulted for GI bleed rule out QTC on most recent EKG 508. initially started on azithromycin, exchanged to doxycycline. Escitalopram held. Will continue Seroquel. Diet: heart healthy GI Prophylaxis: n/a DVT Prophylaxis: Lovenox SQ IV fluids: none Lines/Tubes: peripheral IV Code Status: full code Subjective Date/time seen: 06/13/25 14:42 Interval history: Comfortable at bedside Review of Systems Review of Systems: All systems reviewed & are unremarkable except as noted in HPI and below Exam Narrative: +1 pitting edema, symmetric. bibasilar c rackles, and left side remains diminished. Const: General: comfortable and no acute distress Other: , female, elderly, nontoxic appearance HENMT: Face/Nose/Sinus: Normal nares present Mouth: Yes moist mucous membranes Eyes: General: appearance normal, both eyes and all related structures Sclera: sclerae normal Pupils: Equal, round and reactive pupils present EOM: EOMs intact bilaterally Resp: Other: Mild tachypnea without accessory muscle use. Bibasilar crackles, left side remains diminished. No wheezing. Cardio: Rate: regular rate Rhythm: regular rhythm Other: S1-S2 present without murmur, rub, ectopy GI: Other: Abdomen soft, nondistended, nontender. Normoactive bowel sounds in all quadrants. Skin: General skin exam: normal color and no rashes or lesions noted Wounds: no wounds Neuro: Cranial nerves: Yes Equal, round and reactive pupils present Speech: normal speech Motor exam (neuro): 5/5 motor strength present throughout Sensory Exam: normal sensation Other: A&O x4 Extrem: Other: +1 pitting edema, symmetric. Psych: Mental Status: mental status grossly normal Affect: normal affect Other: Fair insight and judgment, very pleasant Objective Data Vital Signs Vital Signs: Vital Signs - 24 hr 06/12/25 15:15 06/12/25 15:21 06/12/25 15:44 Temperature Pulse Rate 76 77 Respiratory Rate 23 H 23 H Blood Pressure Pulse Oximetry Oxygen Delivery BiPAP Oxygen Flow Rate Fraction of Inspired Oxygen 06/12/25 16:00 06/12/25 16:00 06/12/25 16:06 Temperature 98 F Pulse Rate 76 74 76 Respiratory Rate 19 22 H Blood Pressure 167/71 H Pulse Oximetry 100 98 Oxygen Delivery BiPAP Oxygen Flow Rate Fraction of Inspired Oxygen 06/12/25 18:00 06/12/25 19:30 06/12/25 19:31 Temperature Pulse Rate 82 83 83 Respiratory Rate 22 H 22 H Blood Pressure Pulse Oximetry 100 Oxygen Delivery BiPAP Oxygen Flow Rate Fraction of Inspired Oxygen 06/12/25 19:39 06/12/25 19:41 06/12/25 19:53 Temperature 98.1 F Pulse Rate 78 84 Respiratory Rate 20 18 Blood Pressure 169/65 H Pulse Oximetry 99 100 Oxygen Delivery Nasal Cannula Oxygen Flow Rate 2 Fraction of Inspired Oxygen 06/12/25 20:00 06/12/25 20:59 06/12/25 21:00 Temperature Pulse Rate 85 85 85 Respiratory Rate 18 Blood Pressure Pulse Oximetry 100 Oxygen Delivery BiPAP Oxygen Flow Rate Fraction of Inspired Oxygen 35 06/12/25 22:00 06/12/25 23:30 06/12/25 23:31 Temperature 98.0 F Pulse Rate 69 85 68 Respiratory Rate 18 18 Blood Pressure 155/60 H Pulse Oximetry 100 100 Oxygen Delivery BiPAP Oxygen Flow Rate Fraction of Inspired Oxygen 06/13/25 00:00 06/13/25 00:00 06/13/25 02:00 Temperature Pulse Rate 68 64 66 Respiratory Rate 18 Blood Pressure Pulse Oximetry 100 Oxygen Delivery BiPAP Oxygen Flow Rate Fraction of Inspired Oxygen 35 06/13/25 02:04 06/13/25 02:06 06/13/25 03:48 Temperature 98.3 F Pulse Rate 68 67 69 Respiratory Rate 16 16 16 Blood Pressure 153/70 H Pulse Oximetry 100 100 Oxygen Delivery BiPAP Oxygen Flow Rate Fraction of Inspired Oxygen 06/13/25 03:54 06/13/25 04:00 06/13/25 05:27 Temperature 98.1 F Pulse Rate 81 78 76 Respiratory Rate 18 17 Blood Pressure 177/76 H Pulse Oximetry 100 100 Oxygen Delivery Nasal Cannula Oxygen Flow Rate 2 Fraction of Inspired Oxygen 06/13/25 05:41 06/13/25 05:43 06/13/25 05:50 Temperature 98.4 F 98.4 F Pulse Rate 71 71 71 Respiratory Rate 18 18 Blood Pressure 152/69 H 152/69 H Pulse Oximetry 100 100 Oxygen Delivery Oxygen Flow Rate Fraction of Inspired Oxygen 06/13/25 06:43 06/13/25 07:49 06/13/25 08:00 Temperature 98.2 F 98.0 F Pulse Rate 72 76 Respiratory Rate 17 18 Blood Pressure 164/82 H 175/76 H Pulse Oximetry 99 100 99 Oxygen Delivery Nasal Cannula Oxygen Flow Rate 2 Fraction of Inspired Oxygen 06/13/25 08:00 06/13/25 08:42 06/13/25 08:47 Temperature Pulse Rate 82 82 82 Respiratory Rate 18 18 Blood Pressure Pulse Oximetry 100 Oxygen Delivery Nasal Cannula Oxygen Flow Rate 2 Fraction of Inspired Oxygen 06/13/25 08:50 06/13/25 10:00 06/13/25 12:00 Temperature Pulse Rate 81 82 82 Respiratory Rate 18 Blood Pressure Pulse Oximetry Oxygen Delivery Oxygen Flow Rate Fraction of Inspired Oxygen 06/13/25 12:00 06/13/25 12:20 Temperature 98.4 F Pulse Rate 77 Respiratory Rate 18 Blood Pressure 167/71 H Pulse Oximetry 98 100 Oxygen Delivery Nasal Cannula Oxygen Flow Rate 2 Fraction of Inspired Oxygen Intake/Output Intake/Output: Intake & Output 06/10/25 06/11/25 06/12/25 06/13/25 23:59 23:59 23:59 23:59 Intake Total 940 1280 Output Total 200 700 Balance 740 580 Meds/Results Medications: Active Medications Generic Name Dose Route Start Last Admin Trade Name Freq PRN Reason Stop Dose Admin Acetaminophen 650 mg 06/12/25 12:44 Acetaminophen 325 Mg Tablet PO Q4H PRN Mild Pain (1-3) or Fever Albuterol/Ipratropium 3 ml 06/12/25 14:00 06/13/25 08:42 Ipratropium 0.5 Mg/Albuterol Sulfate 2.5 Mg (Base) Ampul.Neb 3 Ml INHALATION 3 ml Q6HRT MP Administration Benzonatate 100 mg 06/12/25 14:05 Benzonatate 100 Mg Capsule PO TID PRN Cough Clopidogrel Bisulfate 75 mg 06/13/25 09:00 06/13/25 08:16 Clopidogrel Bisulfate 75 Mg Tablet PO 75 mg DAILY MP Administration Dextrose 12.5 gm 06/12/25 12:44 Dextrose 50% 25 Gm/50 Ml Syringe IV PUSH PRN PRN Hypoglycemia Protocol Enoxaparin Sodium 30 mg 06/13/25 09:00 06/13/25 08:18 Enoxaparin 30 Mg/0.3 Ml Syringe SUB-Q Not Given DAILY [facility] Ergocalciferol 1,250 mcg 06/18/25 09:00 Ergocalciferol (Vitamin D2) 1,250 Mcg (50,000 Units) Capsule PO Tu@0900 [facility] Escitalopram Oxalate 10 mg 06/13/25 09:00 Escitalopram Oxalate 10 Mg Tablet PO On Hold: 06/13/25 09:00 DAILY MP Furosemide 40 mg 06/12/25 21:00 06/13/25 08:18 Furosemide Inj 40 Mg/4 Ml Vial IV PUSH 40 mg Q12HR MP Administration Glucagon 1 mg 06/12/25 12:44 Glucagon For Inj 1 Mg Vial IM PRN PRN Hypoglycemia Protocol Glucose 15 gm 06/12/25 12:44 Glucose Oral Gel 15 Gm Of Glucse In 37.5 Gm Tube PO PRN PRN Hypoglycemia Protocol Guaifenesin 600 mg 06/12/25 14:00 06/13/25 08:16 Guaifenesin 12 Hr 600 Mg Tabcr PO 600 mg Q12HR MP Administration Ceftriaxone Sodium 1 gm/ 50 mls @ 100 mls/hr 06/13/25 11:00 06/13/25 10:47 Sodium Chloride IVPB 100 mls/hr Q24H MP Administration Dextrose 1,000 mls @ 100 mls/hr 06/12/25 12:44 Dextrose 5% 1,000 Ml IVPB PRN PRN Hypoglycemia Protocol Doxycycline Hyclate 100 mg/ 100 mls @ 100 mls/hr 06/12/25 21:00 06/13/25 08:18 Sodium Chloride IVPB 100 mls/hr Q12H MP Administration Metoprolol Tartrate 100 mg 06/12/25 21:00 06/13/25 08:16 Metoprolol Tartrate 50 Mg Tab PO 100 mg Q12HR MP Administration Nifedipine 90 mg 06/13/25 09:00 06/13/25 08:16 Nifedipine 30 Mg Tab.Er.24 PO 90 mg DAILY MP Administration Non-Formulary Medication 0 each 06/13/25 09:14 Nonformulary Nutritional Supplement XX 06/14/25 09:13 PRN PRN PROTOCOL Pantoprazole Sodium 40 mg 06/13/25 09:00 06/13/25 08:16 Pantoprazole 40 Mg Tablet PO 40 mg DAILY MP Administration Prednisone 40 mg 06/12/25 14:05 06/13/25 08:16 Prednisone 20 Mg Tablet PO 06/16/25 08:01 40 mg DAILY@0800 MP Administration Quetiapine Fumarate 25 mg 06/12/25 20:10 06/13/25 08:16 Quetiapine Fumarate 25 Mg Tablet PO 25 mg BID MP Administration Radiology Results: ITS Impressions Chest X-Ray 06/12/25 10:15 Impression: CHF. Superimposed probable pneumonia Labs Labs: Laboratory Results - last 24 hr 06/12/25 06/12/25 06/12/25 11:07 15:49 15:52 WBC RBC Hgb Hct MCV MCH MCHC RDW Plt Count MPV Immature Gran % (Auto) Neut % (Auto) Lymph % (Auto) [place] % (Auto) Eos % (Auto) Baso % (Auto) Lymph # (Auto) [place] # (Auto) Eos # (Auto) Baso # (Auto) Abs Immat Gran (auto) Absolute Neuts (auto) Absolute Nucleated RBC Nucleated RBC % Sodium Potassium Chloride Carbon Dioxide Anion Gap BUN Creatinine Estim Creat Clear Calc Estimated GFR Glucose POC Capillary Glucose 100 Calcium Iron 53 TIBC 276 % Saturation 19 L Ferritin 19.60 Total Bilirubin AST ALT Alkaline Phosphatase Troponin I 0.077 H* D Total Protein Albumin Vitamin B12 261.0 Folate 6.6 TSH (Reflex) 1.490 Blood Type A Positive Antibody Screen Negative Crossmatch See Detail 06/13/25 06/13/25 04:21 08:33 WBC 7.4 RBC 2.32 L Hgb 6.4 L* 7.6 L Hct 21.0 L 24.4 L MCV 90.5 MCH 27.6 MCHC 30.5 L RDW 17.4 H Plt Count 238 MPV 10.9 H Immature Gran % (Auto) 0.4 Neut % (Auto) 78.5 H Lymph % (Auto) 14.1 L [place] % (Auto) 6.7 Eos % (Auto) 0.0 Baso % (Auto) 0.3 Lymph # (Auto) 1.05 [place] # (Auto) 0.5 Eos # (Auto) 0.0 Baso # (Auto) 0.0 Abs Immat Gran (auto) 0.03 Absolute Neuts (auto) 5.8 Absolute Nucleated RBC 0.000 Nucleated RBC % 0.0 Sodium 138 Potassium 5.0 Chloride 111 H Carbon Dioxide 18 L Anion Gap 9 BUN 47 H D Creatinine 2.93 H Estim Creat Clear Calc 11 Estimated GFR 15 L Glucose 117 H POC Capillary Glucose Calcium 8.6 Iron TIBC % Saturation Ferritin Total Bilirubin 0.3 AST 27 ALT 11 Alkaline Phosphatase 95 Troponin I Total Protein 6.7 Albumin 3.3 L Vitamin B12 Folate TSH (Reflex) Blood Type Antibody Screen Crossmatch Quality VTE Prophylaxis VTE prophylaxis: pharmacologic ordered
--- NOTE | 2025-06-13 16:42 | WPDGICN ---
Assessment and Plan Assessment and plan (1) Acute on chronic anemia: Code(s): D64.9 - Anemia, unspecified Status: Acute Assessment and Plan: probably multifactorial, normally low 9s this is multifactorial from advanced renal disease and other chronic medical conditions she is too sick to undergo scopes, I recommend only conservative approach unless obvious gib will follow as needed (2) Acute kidney injury superimposed on CKD: Code(s): N17.9 - Acute kidney failure, unspecified; N18.9 - Chronic kidney disease, unspecified Status: Acute (3) Acute hypoxemic respiratory failure: Code(s): J96.01 - Acute respiratory failure with hypoxia Status: Acute Assessment and Plan: bipap, lasix abx for pneumonia (4) Pneumonia: Qualifiers: Laterality: bilateral Lung location: unspecified part of lung Pneumonia type: due to unspecified organism Qualified Code(s): J18.9 - Pneumonia, unspecified organism Code(s): J18.9 - Pneumonia, unspecified organism Status: Acute GI Consult Note Consult date/time: 06/13/25 16:42 Reason for consult: acute on chronic anemia HPI: Madyson Giraldo is a 84 year old female with history of chronic anemia (hgb 9-10), asthma-COPD, CHF, DM2, GERD, gout, CKD S4 with creat ~ 2.4, HTN, and sleep apnea admitted for worsening SOB for last 2 weeks. She can not provided history as she is wearing bipap, son is at bedside. Night prior admission with worsening SOB, recently also report of cough. Admitted with CHF exacerbation and respiratory failure, CXR showed CHF and superimposed probable pneumonia. ER evaluation was tachycardic in the 120s, tachypneic, and unable to speak in full sentences. She received Lasix, a DuoNeb, and was started on BiPAP. ED workup showed: WBC 11.8, hemoglobin 7.3, INR 1.2, creatinine 2.52, CO2 13, gap 15, glucose 244, BNP 20983, initial troponin 0.022, UA showed 3+ protein and 3-5 RBC otherwise unremarkable, viral PCR negative. Initial ABG showed a pH of 7.196, HC03 14.5, O2 saturation 93.4% on room air. Treated for CHF and pneumonia, still bipap. No report of obvious GIB. Last EGD [address] Craig note in 2021, had colonoscopy but years ago. Review of Systems Constitutional: Constitutional: Reports weakness Eyes: Eyes: Denies blurry vision ENT: Reports Normal hearing present Cardiovascular: Cardiovascular: Reports palpitations Respiratory: Respiratory: Reports cough and Reports dyspnea on exertion Gastrointestinal: Gastrointestinal: Denies abdominal pain Genitourinary: Genitourinary: Denies flank pain Musculoskeletal: Musculoskeletal: Denies neck pain Integumentary/Breasts: Skin/Breast: Denies rash Neurologic: Denies Abnormal speech present [facility] Past Medical History Medical History (Updated 06/13/25 @ 16:47 by Madhu Raines MD) Acute on chronic anemia Obstructive sleep apnea Previously noncompliant with CPAP History of CVA (cerebrovascular accident) (~11/2023) Chronic kidney disease, stage 4 (severe) Anxiety and depression History of shingles Tuberculosis Age 16 Myocardial infarction (~2015) Alzheimer's dementia Anemia Unintentional weight loss Osteitis pubis Asthma-COPD overlap syndrome Hemoglobin A1c less than 7.0% 6.7% 09/2020 5.1% 11/2024 Adenomatous colon polyp Essential hypertension Type 2 diabetes mellitus Congestive heart failure Ventral incisional hernia Disorder of vitamin B12 Edema Pure hypercholesterolemia Allergic rhinitis GERD (gastroesophageal reflux disease) Gout Fracture of humerus Disorder of rotator cuff 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 Generalized osteoarthritis of multiple sites Seronegative spondyloarthropathy (~2016) Surgical History Surgical History History of left cataract extraction History of right cataract extraction Family History Family History Mother Hypertension Unknown Family history of stroke Other Diabetes mellitus Family history of allergic disorder Family history of cardiovascular disease Family history of sleep apnea Social History Social History Smoking status: Never smoker Tobacco type: cigarettes Second hand tobacco smoke exposure: No Alcohol intake: never Substance use: never Substance use type: does not use Do You Feel Safe in your Home?: Yes Lack of Transportation: No Lack of Food: Never True Current Housing: I Have Housing Concerned About Future Housing: No Difficulty Paying Gas/Electric Bills: No Difficulty Paying for Meds: No Currently Unemployed: No Education: High School Diploma/GED Difficulty w/ Childcare or Family Care: No Living arrangements: with family Occupation/Education: retired Gender identity (if verbalized by the patient): Female Sexual Orientation (if Verbalized by the Patient): Straight or Heterosexual Spiritual care concerns: No Meds Home Medications and Allergies Home Medications ?Medication ?Instructions ?Recorded ?Confirmed ?Type clopidogrel 75 mg tablet 75 mg PO DAILY #30 tabs 11/10/24 06/12/25 Rx escitalopram oxalate 10 mg tablet 10 mg PO DAILY #60 tabs 11/10/24 06/12/25 Rx nifedipine 90 mg tablet,extended 90 mg PO DAILY #90 tabs 11/10/24 06/12/25 Rx release pantoprazole 40 mg tablet,delayed 40 mg PO DAILY #30 tabs 11/10/24 06/12/25 Rx release blood sugar diagnostic (OneTouch #1 pkg 11/14/24 06/12/25 Rx Verio test strips) blood-glucose meter (OneTouch #1 pkg 11/14/24 06/12/25 Rx Verio Flex Meter) lancets 30 gauge (OneTouch Delica #1 pkg 11/14/24 06/12/25 Rx Plus Lancet) metoprolol tartrate 100 mg tablet See Rx Instructions .Route 11/19/24 06/12/25 Rx .COMPLEX #180 tabs ergocalciferol (vitamin D2) 1,250 50,000 unit PO WEEKLY 06/12/25 06/12/25 History mcg (50,000 unit) capsule quetiapine 25 mg tablet 25 mg PO BID 06/12/25 06/12/25 History vitamin D3 125 mcg (5,000 1 cap PO DAILY 06/12/25 06/12/25 History unit)-vitamin K2 180 mcg capsule Allergies Allergy/AdvReac Type Severity Reaction Status Date / Time atorvastatin (From Lipitor) Allergy Mild myalgia Verified 06/12/25 14:36 fluvastatin (From Lescol) Allergy Mild Unknown Verified 06/12/25 14:36 pravastatin (From Pravachol) Allergy Mild Unknown Verified 06/12/25 14:36 rosuvastatin (From Crestor) Allergy Mild myalgia Verified 06/12/25 14:36 Penicillins Allergy Unknown Unknown Verified 06/12/25 14:36 iodine AdvReac Intermediate Unknown Verified 06/12/25 14:36 Vital Signs Vital Signs - 24 hr 06/12/25 18:00 06/12/25 19:30 06/12/25 19:31 Temperature Pulse Rate 82 83 83 Respiratory Rate 22 H 22 H Blood Pressure Pulse Oximetry 100 Oxygen Delivery BiPAP Oxygen Flow Rate Fraction of Inspired Oxygen 06/12/25 19:39 06/12/25 19:41 06/12/25 19:53 Temperature 98.1 F Pulse Rate 78 84 Respiratory Rate 20 18 Blood Pressure 169/65 H Pulse Oximetry 99 100 Oxygen Delivery Nasal Cannula Oxygen Flow Rate 2 Fraction of Inspired Oxygen 06/12/25 20:00 06/12/25 20:59 06/12/25 21:00 Temperature Pulse Rate 85 85 85 Respiratory Rate 18 Blood Pressure Pulse Oximetry 100 Oxygen Delivery BiPAP Oxygen Flow Rate Fraction of Inspired Oxygen 35 06/12/25 22:00 06/12/25 23:30 06/12/25 23:31 Temperature 98.0 F Pulse Rate 69 85 68 Respiratory Rate 18 18 Blood Pressure 155/60 H Pulse Oximetry 100 100 Oxygen Delivery BiPAP Oxygen Flow Rate Fraction of Inspired Oxygen 06/13/25 00:00 06/13/25 00:00 06/13/25 02:00 Temperature Pulse Rate 68 64 66 Respiratory Rate 18 Blood Pressure Pulse Oximetry 100 Oxygen Delivery BiPAP Oxygen Flow Rate Fraction of Inspired Oxygen 35 06/13/25 02:04 06/13/25 02:06 06/13/25 03:48 Temperature 98.3 F Pulse Rate 68 67 69 Respiratory Rate 16 16 16 Blood Pressure 153/70 H Pulse Oximetry 100 100 Oxygen Delivery BiPAP Oxygen Flow Rate Fraction of Inspired Oxygen 06/13/25 03:54 06/13/25 04:00 06/13/25 05:27 Temperature 98.1 F Pulse Rate 81 78 76 Respiratory Rate 18 17 Blood Pressure 177/76 H Pulse Oximetry 100 100 Oxygen Delivery Nasal Cannula Oxygen Flow Rate 2 Fraction of Inspired Oxygen 06/13/25 05:41 06/13/25 05:43 06/13/25 05:50 Temperature 98.4 F 98.4 F Pulse Rate 71 71 71 Respiratory Rate 18 18 Blood Pressure 152/69 H 152/69 H Pulse Oximetry 100 100 Oxygen Delivery Oxygen Flow Rate Fraction of Inspired Oxygen 06/13/25 06:43 06/13/25 07:49 06/13/25 08:00 Temperature 98.2 F 98.0 F Pulse Rate 72 76 Respiratory Rate 17 18 Blood Pressure 164/82 H 175/76 H Pulse Oximetry 99 100 99 Oxygen Delivery Nasal Cannula Oxygen Flow Rate 2 Fraction of Inspired Oxygen 06/13/25 08:00 06/13/25 08:42 06/13/25 08:47 Temperature Pulse Rate 82 82 82 Respiratory Rate 18 18 Blood Pressure Pulse Oximetry 100 Oxygen Delivery Nasal Cannula Oxygen Flow Rate 2 Fraction of Inspired Oxygen 06/13/25 08:50 06/13/25 10:00 06/13/25 12:00 Temperature Pulse Rate 81 82 82 Respiratory Rate 18 Blood Pressure Pulse Oximetry Oxygen Delivery Oxygen Flow Rate Fraction of Inspired Oxygen 06/13/25 12:00 06/13/25 12:20 06/13/25 14:00 Temperature 98.4 F Pulse Rate 77 71 Respiratory Rate 18 Blood Pressure 167/71 H Pulse Oximetry 98 100 Oxygen Delivery Nasal Cannula Oxygen Flow Rate 2 Fraction of Inspired Oxygen 06/13/25 14:55 06/13/25 14:59 06/13/25 15:02 Temperature Pulse Rate 75 77 Respiratory Rate 18 24 H Blood Pressure Pulse Oximetry 99 Oxygen Delivery BiPAP Oxygen Flow Rate Fraction of Inspired Oxygen 06/13/25 15:52 06/13/25 16:00 06/13/25 16:00 Temperature 97.5 F L Pulse Rate 70 70 Respiratory Rate 23 H Blood Pressure 142/58 H Pulse Oximetry 97 99 Oxygen Delivery BiPAP Oxygen Flow Rate Fraction of Inspired Oxygen Exam Const: Other: wearing bipap HENMT: Face/Nose/Sinus: Normal nares present Mouth: Yes moist mucous membranes Eyes: General: appearance normal, both eyes and all related structures Sclera: sclerae normal Resp: Other: Mild tachypnea without accessory muscle use. Bibasilar crackles, left side remains diminished. No wheezing. Cardio: Rate: regular rate Rhythm: regular rhythm GI: Other: Abdomen soft, nondistended, nontender. Normoactive bowel sounds in all quadrants. Skin: General skin exam: normal color Neuro: Cranial nerves: Yes Equal, round and reactive pupils present Speech: normal speech Motor exam (neuro): 5/5 motor strength present throughout Extrem: Other: +1 pitting edema, symmetric. Psych: Mental Status: mental status grossly normal Affect: normal affect Other: Fair insight and judgment, very pleasant Results Labs 06/13/25 08:33 06/13/25 04:21 Labs: Short CBC 06/13/25 06/13/25 Range/Units 04:21 08:33 WBC 7.4 (4.5-10.0) K/mm3 Hgb 6.4 L* 7.6 L (12.0-15.0) g/dL Hct 21.0 L 24.4 L (37.0-47.0) % Plt Count 238 (150-375) k/mm3 BMP 06/13/25 04:21 Sodium 138 Potassium 5.0 Chloride 111 H Carbon Dioxide 18 L BUN 47 H D Creatinine 2.93 H Glucose 117 H Calcium 8.6 Liver Function 06/13/25 Range/Units 04:21 Total Bilirubin 0.3 (0.2-1.3) mg/dL AST 27 (14-36) U/L ALT 11 (6-35) U/L Alkaline Phosphatase 95 (38-126) U/L Albumin 3.3 L (3.5-5.1) g/dL
--- NOTE | 2025-06-13 17:26 | PC.NURSE ---
stool specimen and sputum specimen not collected due to no sputum production or bowel movement today
[2025-06-14] VITALS (28 sets, daily range): BP systolic 145–184; BP diastolic 58–73; PULSE 65–88; RESP 16–28; TEMP 36.2–36.8; O2SAT 94–100
[2025-06-14 04:31] LABS: Hematocrit 24.3 % (37.0-47.0); Hemoglobin 7.5 g/dL (12.0-15.0); Immature Granulocyte Percent A 0.7 % (0-0.5); Lymphocytes Absolute Auto 1.45 K/mm3 (0.9-3.2); Mean Corpuscular HGB Conc 30.9 g/dl (32-36); Mean Corpuscular Hemoglobin 27.5 pg (26-34); Mean Corpuscular Volume 89.0 fl (80-100); Nucleated Red Blood Cells Absolute Auto 0.000 K/mm3 (0.0-0.012); Nucleated Red Blood Cells Perc 0.0 % (0.0-0.2); Platelet Count Result 258 k/mm3 (150-375); Red Blood Count 2.73 M/mm3 (4.2-5.4); White Blood Count 10.1 K/mm3 (4.5-10.0)
[2025-06-14 04:48] LABS: Alanine Aminotransferase 12 U/L (6-35); Albumin Level 3.4 g/dL (3.5-5.1); Alkaline Phosphatase 93 U/L (38-126); Anion Gap 9 mmol/L (4-12); Aspartate Amino Transferase 23 U/L (14-36); Bilirubin,Total 0.3 mg/dL (0.2-1.3); Blood Urea Nitrogen 59 mg/dL (7-17); Calcium 8.7 mg/dL (8.4-10.2); Carbon Dioxide 18 mmol/L (22-30); Chloride 110 mmol/L (98-107); Estimated CRCL calculation 11 ml/min; Estimated Glomerular Filt Rate 16; Glucose 98 mg/dL (65-110); Magnesium 2.2 mg/dL (1.6-2.3); Potassium 5.0 mmol/L (3.4-5.0); Sodium 137 mmol/L (137-145); Total Protein 7.0 g/dL (6.3-8.2)
[2025-06-14] MEDS: IPRATROPIUM 0.5 MG/ALBUTEROL SULFATE 2.5 MG (BASE) AMPUL.NEB 3 ML INHALATION ×3 (07:28→20:26)
[2025-06-14] MEDS: ENOXAPARIN 30 MG/0.3 ML SYRINGE SUB-Q (09:39)
[2025-06-14] MEDS: DOXYCYCLINE IV 100 MG in SODIUM CHLORIDE 0.9% IV 100 ML IVPB ×2 (09:40→20:27)
[2025-06-14] MEDS: METOPROLOL TARTRATE 50 MG TAB 100 MG PO ×2 (09:41→20:26)
[2025-06-14] MEDS: PANTOPRAZOLE 40 MG TABLET PO (09:43)
[2025-06-14] MEDS: guaiFENesin 12 HR 600 MG TABCR PO ×2 (09:43→20:26)
[2025-06-14] MEDS: CLOPIDOGREL BISULFATE 75 MG TABLET PO (09:44)
[2025-06-14] MEDS: IRON SUCROSE COMPLEX 400 MG, IRON SUCROSE COMPLEX 100 MG in SODIUM CHLORIDE 0.9% IV 250 ML 78.57 MG IVPB (10:58)
[2025-06-14] MEDS: CYANOCOBALAMIN INJ 1,000 MCG/ML VIAL 1000 MCG IM (10:59)
[2025-06-14] MEDS: cefTRIAXone 1 GM in SODIUM CHLORIDE 0.9% IV 50 ML 100 ML IVPB (11:05)
--- NOTE | 2025-06-14 14:21 | P.PNIM_ITS ---
Progress Note: A&P Assessment and Plan (1) Acute hypoxemic respiratory failure: Code(s): J96.01 - Acute respiratory failure with hypoxia Status: Acute Assessment and Plan: CHF and Pneumonia CXR reviewed no oxygen at baseline, now on 2 liters oxygen s/p BiPAP Continue Rocephin and Doxycycline, and lasix monitor (2) Acute exacerbation of CHF (congestive heart failure): Qualifiers: Heart failure type: unspecified Qualified Code(s): I50.9 - Heart failure, unspecified Code(s): I50.9 - Heart failure, unspecified Status: Acute Assessment and Plan: Patient has hx of CHF, taken off diuresis in March of 2025. Reviewed chart, most recent echo completed in October of 2024 which showed normal biventricular size, systolic function, no significant valvular disease, and atrial septum appears aneurysmal however there was no [id number] shunt shunt. BNP currently elevated at 15,300. - ECHo EF 35-40% - decreased lasix 20mg IV bid - monitor I&Os daily weights - trend renal function, currently has SOLOMON superimposed on CKD - Cardiology consulted (3) Pneumonia: Qualifiers: Laterality: bilateral Lung location: unspecified part of lung Pneumonia type: due to unspecified organism Qualified Code(s): J18.9 - Pneumonia, unspecified organism Code(s): J18.9 - Pneumonia, unspecified organism Status: Acute Assessment and Plan: CXR concerning for bibasilar pneumonia. Does have history of aspiration pneumonia in October of 2024. Current concerns for aspiration? - on ceftriaxone and doxycycline on 06/12 - check sputum culture - MRSA PCR negative in October 2024 - supportive care: Mucinex mp, Tessalon Perles p.r.n., DuoNebs mp, Tylenol p.r.n. (4) Asthma-COPD overlap syndrome: Code(s): J44.9 - Chronic obstructive pulmonary disease, unspecified Status: Acute Assessment and Plan: Wheezing upon arrival, improved with DuoNeb and BiPAP. - Duonebs [facility] - prednisone 40 mg x5 days (5) Acute kidney injury superimposed on CKD: Code(s): N17.9 - Acute kidney failure, unspecified; N18.9 - Chronic kidney disease, unspecified Status: Acute Assessment and Plan: Patient has history of CKD stage 4. Creatinine 2.52, BUN 35, GFR 18 upon admission on 06/12. Baseline creatinine of 2.02. ?Cardiorenal Improving Cr 2.84 from 2.93 - monitor I&Os - trend renal function (6) Anemia: Qualifiers: Anemia type: due to chronic kidney disease Chronic kidney disease stage: stage 4 (GFR 15-29) Qualified Code(s): N18.4 - Chronic kidney disease, stage 4 (severe); D63.1 - Anemia in chronic kidney disease Code(s): D64.9 - Anemia, unspecified Status: Acute Assessment and Plan: History of anemia secondary to CKD. Currently has SOLOMON superimposed on CKD, may be source of patient's worsening anemia. Could also be dilutional from CHF exacerbation. - Hgb 7.3 upon admission on 06/12 - baseline hemoglobin 8-9 - Ferritin 21 and Hb 7.5 today IV iron 1000/1000mg - trend H&H (7) HTN (hypertension): Qualifiers: Hypertension type: primary hypertension Qualified Code(s): I10 - Essential (primary) hypertension Code(s): I10 - Essential (primary) hypertension Status: Chronic Assessment and Plan: - chronic, currently 156/98. Initially 201/109, improved with diuresis and now stable. - continue home medications: Metoprolol, Nifedipine - Added Isosorbide mononitrate and Hydralazine - monitor (8) Type 2 diabetes mellitus with hyperglycemia: Qualifiers: Diabetes mellitus half-way insulin use: without half-way use Qualified Code(s): E11.65 - Type 2 diabetes mellitus with hyperglycemia Code(s): E11.65 - Type 2 diabetes mellitus with hyperglycemia Status: Resolved Assessment and Plan: Previous hx of DM2, no longer on diabetic medications. A1C 5.1% on 11/15/2024. Did have hypoglycemia in November of 2024. - hypoglycemia protocol ordered - glucose checks prn Plan iron deficiency anemia Hb 6.4 on admission, repeat 7.6 Isat 19, and ferritin 19, b12 261 Started on IV iron 1000/1000 MMA and Homocysteine pending Day 2 IM b12 monitor H and H FOBT pending Gi consulted for GI bleed rule out Diet: heart healthy DVT Prophylaxis: Lovenox SQ Code Status: full code Subjective Date/time seen: 06/14/25 14:21 Interval history: Comfortable at bedside ECHO Ef 35-40%, cards consulted Review of Systems Review of Systems: All systems reviewed & are unremarkable except as noted in HPI and below Exam Narrative: +1 pitting edema, symmetric. bibasilar c rackles, and left side remains diminished. Const: General: comfortable and no acute distress Other: , female, elderly, nontoxic appearance HENMT: Face/Nose/Sinus: Normal nares present Mouth: Yes moist mucous membranes Eyes: General: appearance normal, both eyes and all related structures Sclera: sclerae normal Pupils: Equal, round and reactive pupils present EOM: EOMs intact bilaterally Resp: Other: Mild tachypnea without accessory muscle use. Bibasilar crackles, left side remains diminished. No wheezing. Cardio: Rate: regular rate Rhythm: regular rhythm Other: S1-S2 present without murmur, rub, ectopy GI: Other: Abdomen soft, nondistended, nontender. Normoactive bowel sounds in all quadrants. Skin: General skin exam: normal color and no rashes or lesions noted Wounds: no wounds Neuro: Cranial nerves: Yes Equal, round and reactive pupils present Speech: normal speech Motor exam (neuro): 5/5 motor strength present throughout Sensory Exam: normal sensation Other: A&O x4 Extrem: Other: +1 pitting edema, symmetric. Psych: Mental Status: mental status grossly normal Affect: normal affect Other: Fair insight and judgment, very pleasant Objective Data Vital Signs Vital Signs: Vital Signs - 24 hr 06/13/25 14:55 06/13/25 14:59 06/13/25 15:02 Temperature Pulse Rate 75 77 Respiratory Rate 18 24 H Blood Pressure Pulse Oximetry 99 Oxygen Delivery BiPAP Oxygen Flow Rate 06/13/25 15:52 06/13/25 16:00 06/13/25 16:00 Temperature 97.5 F L Pulse Rate 70 70 Respiratory Rate 23 H Blood Pressure 142/58 H Pulse Oximetry 97 99 Oxygen Delivery BiPAP Oxygen Flow Rate 06/13/25 17:26 06/13/25 20:00 06/13/25 20:02 Temperature Pulse Rate 74 72 68 Respiratory Rate 24 H Blood Pressure Pulse Oximetry Oxygen Delivery Oxygen Flow Rate 06/13/25 20:03 06/13/25 20:12 06/13/25 20:53 Temperature 97.8 F Pulse Rate 68 70 73 Respiratory Rate 25 H 22 H 18 Blood Pressure 155/63 H Pulse Oximetry 99 98 Oxygen Delivery BiPAP Oxygen Flow Rate 06/13/25 21:00 06/13/25 21:00 06/13/25 22:00 Temperature Pulse Rate 71 71 70 Respiratory Rate 18 Blood Pressure Pulse Oximetry 96 Oxygen Delivery Nasal Cannula Oxygen Flow Rate 2 06/13/25 23:50 06/14/25 00:00 06/14/25 00:46 Temperature 97.7 F Pulse Rate 70 65 65 Respiratory Rate 18 18 Blood Pressure 145/60 H Pulse Oximetry 96 94 Oxygen Delivery Nasal Cannula Oxygen Flow Rate 2 06/14/25 02:00 06/14/25 03:46 06/14/25 04:00 Temperature Pulse Rate 66 66 66 Respiratory Rate 18 Blood Pressure Pulse Oximetry 94 Oxygen Delivery Nasal Cannula Oxygen Flow Rate 2 06/14/25 04:51 06/14/25 06:00 06/14/25 07:30 Temperature 98.1 F Pulse Rate 70 73 76 Respiratory Rate 16 20 Blood Pressure 150/69 H Pulse Oximetry 95 Oxygen Delivery Oxygen Flow Rate 06/14/25 07:32 06/14/25 07:36 06/14/25 08:00 Temperature Pulse Rate 77 82 Respiratory Rate 20 Blood Pressure Pulse Oximetry 94 Oxygen Delivery Room Air Oxygen Flow Rate 06/14/25 08:16 06/14/25 09:41 06/14/25 10:00 Temperature 98.0 F Pulse Rate 82 82 82 Respiratory Rate 20 Blood Pressure 178/73 H Pulse Oximetry 97 Oxygen Delivery Oxygen Flow Rate 06/14/25 11:51 06/14/25 12:00 Temperature 97.1 F L Pulse Rate 87 88 Respiratory Rate 18 Blood Pressure 184/71 H Pulse Oximetry 95 Oxygen Delivery Oxygen Flow Rate Intake/Output Intake/Output: Intake & Output 06/11/25 06/12/25 06/13/25 06/14/25 23:59 23:59 23:59 23:59 Intake Total 940 1950 1270 Output Total 200 1500 2100 Balance 740 450 -830 Meds/Results Medications: Active Medications Generic Name Dose Route Start Last Admin Trade Name Freq PRN Reason Stop Dose Admin Acetaminophen 650 mg 06/12/25 12:44 Acetaminophen 325 Mg Tablet PO Q4H PRN Mild Pain (1-3) or Fever Albuterol/Ipratropium 3 ml 06/12/25 14:00 06/14/25 07:28 Ipratropium 0.5 Mg/Albuterol Sulfate 2.5 Mg (Base) Ampul.Neb 3 Ml INHALATION 3 ml Q6HRT MP Administration Benzonatate 100 mg 06/12/25 14:05 Benzonatate 100 Mg Capsule PO TID PRN Cough Clopidogrel Bisulfate 75 mg 06/13/25 09:00 06/14/25 09:44 Clopidogrel Bisulfate 75 Mg Tablet PO 75 mg DAILY MP Administration Dextrose 12.5 gm 06/12/25 12:44 Dextrose 50% 25 Gm/50 Ml Syringe IV PUSH PRN PRN Hypoglycemia Protocol Enoxaparin Sodium 30 mg 06/13/25 09:00 06/14/25 09:39 Enoxaparin 30 Mg/0.3 Ml Syringe SUB-Q 30 mg DAILY MP Administration Ergocalciferol 1,250 mcg 06/18/25 09:00 Ergocalciferol (Vitamin D2) 1,250 Mcg (50,000 Units) Capsule PO Tu@0900 MP Escitalopram Oxalate 10 mg 06/13/25 09:00 Escitalopram Oxalate 10 Mg Tablet PO On Hold: 06/13/25 09:00 DAILY MP Furosemide 20 mg 06/14/25 21:00 Furosemide Inj 40 Mg/4 Ml Vial IV PUSH Q12HR MP Glucagon 1 mg 06/12/25 12:44 Glucagon For Inj 1 Mg Vial IM PRN PRN Hypoglycemia Protocol Glucose 15 gm 06/12/25 12:44 Glucose Oral Gel 15 Gm Of Glucse In 37.5 Gm Tube PO PRN PRN Hypoglycemia Protocol Guaifenesin 600 mg 06/12/25 14:00 06/14/25 09:43 Guaifenesin 12 Hr 600 Mg Tabcr PO 600 mg Q12HR MP Administration Ceftriaxone Sodium 1 gm/ 50 mls @ 100 mls/hr 06/13/25 11:00 06/14/25 11:05 Sodium Chloride IVPB 100 mls/hr Q24H MP Administration Dextrose 1,000 mls @ 100 mls/hr 06/12/25 12:44 Dextrose 5% 1,000 Ml IVPB PRN PRN Hypoglycemia Protocol Doxycycline Hyclate 100 mg/ 100 mls @ 100 mls/hr 06/12/25 21:00 06/14/25 09:40 Sodium Chloride IVPB 100 mls/hr Q12H MP Administration Metoprolol Tartrate 100 mg 06/12/25 21:00 06/14/25 09:41 Metoprolol Tartrate 50 Mg Tab PO 100 mg Q12HR MP Administration Nifedipine 90 mg 06/13/25 09:00 06/14/25 09:41 Nifedipine 30 Mg Tab.Er.24 PO 60 mg DAILY MP Administration Pantoprazole Sodium 40 mg 06/13/25 09:00 06/14/25 09:43 Pantoprazole 40 Mg Tablet PO 40 mg DAILY MP Administration Perflutren Lipid Microsphere 0 ml 06/13/25 14:58 Perflutren Lipid Microspheres 1.5 Ml Vial Diluted To 10 Ml Total Volume IV PUSH 06/16/25 14:58 ONCE PRN adequate visualization Protocol Prednisone 40 mg 06/12/25 14:05 06/14/25 09:43 Prednisone 20 Mg Tablet PO 06/16/25 08:01 40 mg DAILY@0800 MP Administration Quetiapine Fumarate 25 mg 06/12/25 20:10 06/14/25 09:44 Quetiapine Fumarate 25 Mg Tablet PO 25 mg BID MP Administration Radiology Results: ITS Impressions Chest X-Ray 06/12/25 10:15 Impression: CHF. Superimposed probable pneumonia Labs Labs: Laboratory Results - last 24 hr 06/13/25 06/13/25 06/14/25 08:31 14:49 04:24 WBC 10.1 H RBC 2.73 L Hgb 7.5 L Hct 24.3 L MCV 89.0 MCH 27.5 MCHC 30.9 L RDW 17.2 H Plt Count 258 MPV 11.3 H Immature Gran % (Auto) 0.7 H Neut % (Auto) 75.5 H Lymph % (Auto) 14.4 L [place] % (Auto) 9.0 H Eos % (Auto) 0.2 Baso % (Auto) 0.2 Lymph # (Auto) 1.45 [place]ok # (Auto) 0.9 H Eos # (Auto) 0.0 Baso # (Auto) 0.0 Abs Immat Gran (auto) 0.07 H Absolute Neuts (auto) 7.6 H Absolute Nucleated RBC 0.000 Nucleated RBC % 0.0 Sodium Potassium Chloride Carbon Dioxide Anion Gap BUN Creatinine Estim Creat Clear Calc Estimated GFR Glucose POC Capillary Glucose 170 H Calcium Magnesium Total Bilirubin AST ALT Alkaline Phosphatase Total Protein Albumin Homocysteine 27.9 H 06/14/25 04:25 WBC RBC Hgb Hct MCV MCH MCHC RDW Plt Count MPV Immature Gran % (Auto) Neut % (Auto) Lymph % (Auto) Cro[place] % (Auto) Eos % (Auto) Baso % (Auto) Lymph # (Auto) [place] # (Auto) Eos # (Auto) Baso # (Auto) Abs Immat Gran (auto) Absolute Neuts (auto) Absolute Nucleated RBC Nucleated RBC % Sodium 137 Potassium 5.0 Chloride 110 H Carbon Dioxide 18 L Anion Gap 9 BUN 59 H D Creatinine 2.84 H Estim Creat Clear Calc 11 Estimated GFR 16 L Glucose 98 POC Capillary Glucose Calcium 8.7 Magnesium 2.2 Total Bilirubin 0.3 AST 23 ALT 12 Alkaline Phosphatase 93 Total Protein 7.0 Albumin 3.4 L Homocysteine Quality VTE Prophylaxis VTE prophylaxis: pharmacologic ordered
--- NOTE | 2025-06-14 15:09 | PM.CNCAR ---
Assessment and Plan Assessment and plan (1) Acute exacerbation of CHF (congestive heart failure): Qualifiers: Heart failure type: unspecified Qualified Code(s): I50.9 - Heart failure, unspecified Code(s): I50.9 - Heart failure, unspecified Status: Acute Assessment and Plan: Acute systolic heart failure. Echo shows EF 35-40%. On Metoprolol. On Lasix 20 mg IV BID for diuresis. Monitor kidney function and electrolytes. Holding off on Entresto, Jardiance, Spironolactone due to CKD. Obtain Lexiscan myoview on Tuesday to r/o CAD. Troponin minimally elevated at .077 which could be due to CHF, CKD, acute anemia, pneumonia. (2) HTN (hypertension): Qualifiers: Hypertension type: primary hypertension Qualified Code(s): I10 - Essential (primary) hypertension Code(s): I10 - Essential (primary) hypertension Status: Chronic Assessment and Plan: Stable. (3) Pneumonia: Qualifiers: Laterality: bilateral Lung location: unspecified part of lung Pneumonia type: due to unspecified organism Qualified Code(s): J18.9 - Pneumonia, unspecified organism Code(s): J18.9 - Pneumonia, unspecified organism Status: Acute Assessment and Plan: On antibiotics. (4) Anemia: Qualifiers: Anemia type: due to chronic kidney disease Chronic kidney disease stage: stage 4 (GFR 15-29) Qualified Code(s): N18.4 - Chronic kidney disease, stage 4 (severe); D63.1 - Anemia in chronic kidney disease Code(s): D64.9 - Anemia, unspecified Status: Acute Assessment and Plan: Monitor. GI consulted. (5) SOLOMON (acute kidney injury): Code(s): N17.9 - Acute kidney failure, unspecified Status: Acute History of Present Illness History of Present Illness Consult date/time: 06/14/25 15:09 Reason For Visit: Acute Resp Failure/CHF/PNA Narrative: 84 yr old woman admitted to hospital for sob. She has a history of anemia, asthma-COPD, CHF, DM2, GERD, gout, CKD S4, HTN, and sleep apnea. Reports she has had sob for years but worse last couple of day. She is limited at walking short distances only. Has moderate edema of legs. CXR showed CHF and possible pneumonia. Denies chest pain, palpitations, dizziness. Review of Systems Review of Systems: All systems reviewed & are unremarkable except as noted in HPI and below Constitutional: Constitutional: Reports as per HPI, Denies chills, Reports fatigue and Denies fever(s) Cardiovascular: Cardiovascular: Reports as per HPI, Denies chest pain and Denies irregular heart rhythm Respiratory: Respiratory: Reports as per HPI and Reports dyspnea Gastrointestinal: Gastrointestinal: Reports as per HPI and Denies abdominal pain Genitourinary: Genitourinary: Reports as per HPI and Denies dysuria Musculoskeletal: Musculoskeletal: Reports as per HPI Neurologic: Reports as per HPI, Denies dizziness and Denies syncope [facility] Past Medical History Medical History (Updated 06/13/25 @ 16:47 by Madhu Raines MD) Acute on chronic anemia Obstructive sleep apnea Previously noncompliant with CPAP History of CVA (cerebrovascular accident) (~11/2023) Chronic kidney disease, stage 4 (severe) Anxiety and depression History of shingles Tuberculosis Age 16 Myocardial infarction (~2015) Alzheimer's dementia Anemia Unintentional weight loss Osteitis pubis Asthma-COPD overlap syndrome Hemoglobin A1c less than 7.0% 6.7% 09/2020 5.1% 11/2024 Adenomatous colon polyp Essential hypertension Type 2 diabetes mellitus Congestive heart failure Ventral incisional hernia Disorder of vitamin B12 Edema Pure hypercholesterolemia Allergic rhinitis GERD (gastroesophageal reflux disease) Gout Fracture of humerus Disorder of rotator cuff 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 Generalized osteoarthritis of multiple sites Seronegative spondyloarthropathy (~2016) Surgical History Surgical History History of left cataract extraction History of right cataract extraction Family History Family History Mother Hypertension Unknown Family history of stroke Other Diabetes mellitus Family history of allergic disorder Family history of cardiovascular disease Family history of sleep apnea Social History Social History Smoking status: Never smoker Tobacco type: cigarettes Second hand tobacco smoke exposure: No Alcohol intake: never Substance use: never Substance use type: does not use Do You Feel Safe in your Home?: Yes Lack of Transportation: No Lack of Food: Never True Current Housing: I Have Housing Concerned About Future Housing: No Difficulty Paying Gas/Electric Bills: No Difficulty Paying for Meds: No Currently Unemployed: No Education: High School Diploma/GED Difficulty w/ Childcare or Family Care: No Living arrangements: with family Occupation/Education: retired Gender identity (if verbalized by the patient): Female Sexual Orientation (if Verbalized by the Patient): Straight or Heterosexual Spiritual care concerns: No Meds Home Medications and Allergies Home Medications ?Medication ?Instructions ?Recorded ?Confirmed ?Type clopidogrel 75 mg tablet 75 mg PO DAILY #30 tabs 11/10/24 06/12/25 Rx escitalopram oxalate 10 mg tablet 10 mg PO DAILY #60 tabs 11/10/24 06/12/25 Rx nifedipine 90 mg tablet,extended 90 mg PO DAILY #90 tabs 11/10/24 06/12/25 Rx release pantoprazole 40 mg tablet,delayed 40 mg PO DAILY #30 tabs 11/10/24 06/12/25 Rx release blood sugar diagnostic (OneTouch #1 pkg 11/14/24 06/12/25 Rx Verio test strips) blood-glucose meter (OneTouch #1 pkg 11/14/24 06/12/25 Rx Verio Flex Meter) lancets 30 gauge (OneTouch Delica #1 pkg 11/14/24 06/12/25 Rx Plus Lancet) metoprolol tartrate 100 mg tablet See Rx Instructions .Route 11/19/24 06/12/25 Rx .COMPLEX #180 tabs ergocalciferol (vitamin D2) 1,250 50,000 unit PO WEEKLY 06/12/25 06/12/25 History mcg (50,000 unit) capsule quetiapine 25 mg tablet 25 mg PO BID 06/12/25 06/12/25 History vitamin D3 125 mcg (5,000 1 cap PO DAILY 06/12/25 06/12/25 History unit)-vitamin K2 180 mcg capsule Allergies Allergy/AdvReac Type Severity Reaction Status Date / Time atorvastatin (From Lipitor) Allergy Mild myalgia Verified 06/12/25 14:36 fluvastatin (From Lescol) Allergy Mild Unknown Verified 06/12/25 14:36 pravastatin (From Pravachol) Allergy Mild Unknown Verified 06/12/25 14:36 rosuvastatin (From Crestor) Allergy Mild myalgia Verified 06/12/25 14:36 Penicillins Allergy Unknown Unknown Verified 06/12/25 14:36 iodine AdvReac Intermediate Unknown Verified 06/12/25 14:36 Vital Signs Vital Signs - 24 hr 06/13/25 15:52 06/13/25 16:00 06/13/25 16:00 Temperature 97.5 F L Pulse Rate 70 70 Respiratory Rate 23 H Blood Pressure 142/58 H Pulse Oximetry 97 99 Oxygen Delivery BiPAP Oxygen Flow Rate 06/13/25 17:26 06/13/25 20:00 06/13/25 20:02 Temperature Pulse Rate 74 72 68 Respiratory Rate 24 H Blood Pressure Pulse Oximetry Oxygen Delivery Oxygen Flow Rate 06/13/25 20:03 06/13/25 20:12 06/13/25 20:53 Temperature 97.8 F Pulse Rate 68 70 73 Respiratory Rate 25 H 22 H 18 Blood Pressure 155/63 H Pulse Oximetry 99 98 Oxygen Delivery BiPAP Oxygen Flow Rate 06/13/25 21:00 06/13/25 21:00 06/13/25 22:00 Temperature Pulse Rate 71 71 70 Respiratory Rate 18 Blood Pressure Pulse Oximetry 96 Oxygen Delivery Nasal Cannula Oxygen Flow Rate 2 06/13/25 23:50 06/14/25 00:00 06/14/25 00:46 Temperature 97.7 F Pulse Rate 70 65 65 Respiratory Rate 18 18 Blood Pressure 145/60 H Pulse Oximetry 96 94 Oxygen Delivery Nasal Cannula Oxygen Flow Rate 2 06/14/25 02:00 06/14/25 03:46 06/14/25 04:00 Temperature Pulse Rate 66 66 66 Respiratory Rate 18 Blood Pressure Pulse Oximetry 94 Oxygen Delivery Nasal Cannula Oxygen Flow Rate 2 06/14/25 04:51 06/14/25 06:00 06/14/25 07:30 Temperature 98.1 F Pulse Rate 70 73 76 Respiratory Rate 16 20 Blood Pressure 150/69 H Pulse Oximetry 95 Oxygen Delivery Oxygen Flow Rate 06/14/25 07:32 06/14/25 07:36 06/14/25 08:00 Temperature Pulse Rate 77 82 Respiratory Rate 20 Blood Pressure Pulse Oximetry 94 Oxygen Delivery Room Air Oxygen Flow Rate 06/14/25 08:16 06/14/25 09:41 06/14/25 10:00 Temperature 98.0 F Pulse Rate 82 82 82 Respiratory Rate 20 Blood Pressure 178/73 H Pulse Oximetry 97 Oxygen Delivery Oxygen Flow Rate 06/14/25 11:51 06/14/25 12:00 06/14/25 14:31 Temperature 97.1 F L Pulse Rate 87 88 80 Respiratory Rate 18 20 Blood Pressure 184/71 H Pulse Oximetry 95 Oxygen Delivery Oxygen Flow Rate 06/14/25 14:41 Temperature Pulse Rate 81 Respiratory Rate 20 Blood Pressure Pulse Oximetry Oxygen Delivery Oxygen Flow Rate Exam Const: General: cooperative, healthy appearing and comfortable Resp: Auscultation: clear to auscultation bilaterally, no crackles, no rales, no rhonchi and no wheezes Cardio: Rate: regular rate Rhythm: regular rhythm Heart sounds: no murmurs Peripheral pulses: dorsalis pedis present GI: GI Palp: No abdominal tenderness and Yes Soft to palpation Neuro: General: oriented to person, oriented to place and oriented to time Extrem: Right lower extremity: edema Left lower extremity: edema Other: Mod edema of both legs Results Labs and Meds 06/14/25 04:24 06/14/25 04:25 Lab results: Cardiac Enzymes 06/14/25 Range/Units 04:25 AST 23 (14-36) U/L CBC 06/14/25 Range/Units 04:24 WBC 10.1 H (4.5-10.0) K/mm3 RBC 2.73 L (4.2-5.4) M/mm3 Hgb 7.5 L (12.0-15.0) g/dL Hct 24.3 L (37.0-47.0) % Plt Count 258 (150-375) k/mm3 Lymph # (Auto) 1.45 (0.9-3.2) K/mm3 [place] # (Auto) 0.9 H (0.1-0.6) K/mm3 Eos # (Auto) 0.0 (0-0.3) K/mm3 Baso # (Auto) 0.0 (0.0-0.1) K/mm3 Comprehensive Metabolic Panel 06/14/25 Range/Units 04:25 Sodium 137 (137-145) mmol/L Potassium 5.0 (3.4-5.0) mmol/L Chloride 110 H (98-107) mmol/L Carbon Dioxide 18 L (22-30) mmol/L BUN 59 H D (7-17) mg/dL Creatinine 2.84 H (0.7-1.0) mg/dL Glucose 98 (65-110) mg/dL Calcium 8.7 (8.4-10.2) mg/dL AST 23 (14-36) U/L ALT 12 (6-35) U/L Alkaline Phosphatase 93 (38-126) U/L Total Protein 7.0 (6.3-8.2) g/dL Albumin 3.4 L (3.5-5.1) g/dL Intake and Output 06/13/25 06/14/25 06/14/25 23:59 07:59 15:59 Intake Total 520 550 720 Output Total 800 1300 1100 Balance -280 -750 -380 Intake: IV 100 Doxycycline IV 100 mg In Sodium 100 Chloride 0.9% IV 100 ml @ 100 mls/hr IVPB Q12H [facility] Rx#: [id number] Oral 420 254 480 Oral Supplement 240 Output: Catheter Urine 800 1300 1100 Urethral Catheter 800 1300 1100 Patient Weight 06/14/25 23:59 Weight 69 kg
[2025-06-14] MEDS: ISOSORBIDE MONONITRATE 30 MG TAB.ER.24H PO (15:55)
--- NOTE | 2025-06-14 17:32 | WPDGIPROGNO ---
Progress Note: A&P Assessment and Plan (1) Acute on chronic anemia: Code(s): D64.9 - Anemia, unspecified Status: Acute Assessment and Plan: this is probably multifactorial, also advanced renal disease high risk to undergo scopes and no signs of active bleeding continue with conservative treatment will follow as needed (2) Acute kidney injury superimposed on CKD: Code(s): N17.9 - Acute kidney failure, unspecified; N18.9 - Chronic kidney disease, unspecified Status: Acute (3) Acute exacerbation of CHF (congestive heart failure): Qualifiers: Heart failure type: unspecified Qualified Code(s): I50.9 - Heart failure, unspecified Code(s): I50.9 - Heart failure, unspecified Status: Acute Assessment and Plan: 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 (4) Acute hypoxemic respiratory failure: Code(s): J96.01 - Acute respiratory failure with hypoxia Status: Acute Assessment and Plan: better (5) Right-sided epistaxis: Code(s): R04.0 - Epistaxis Status: Acute Assessment and Plan: c/o intermittent epistaxis, this is probably causing some degree of anemia Subjective Date/time seen: 06/14/25 17:32 Interval history: more comfortable and breathing better, she is in good spirits having dinner no signs of gib Review of Systems Review of Systems: All systems reviewed & are unremarkable except as noted in HPI and below Exam Const: General: cooperative, healthy appearing and comfortable HENMT: Face/Nose/Sinus: Normal nares present Eyes: General: appearance normal, both eyes and all related structures Neck: Neck: supple Resp: Auscultation: clear to auscultation bilaterally and no crackles Cardio: Rate: regular rate Rhythm: regular rhythm Heart sounds: no murmurs GI: GI Palp: No abdominal tenderness, Yes Soft to palpation and No Tenderness to palpation present (GI) Auscultation: normal bowel sounds Neuro: General: oriented to person, oriented to place and oriented to time Extrem: Other: Mod edema of both legs Objective Data Vital Signs Vital Signs: Vital Signs - 24 hr 06/13/25 20:00 06/13/25 20:02 06/13/25 20:03 Temperature Pulse Rate 72 68 68 Respiratory Rate 24 H 25 H Blood Pressure Pulse Oximetry 99 Oxygen Delivery BiPAP Oxygen Flow Rate 06/13/25 20:12 06/13/25 20:53 06/13/25 21:00 Temperature 97.8 F Pulse Rate 70 73 71 Respiratory Rate 22 H 18 Blood Pressure 155/63 H Pulse Oximetry 98 Oxygen Delivery Oxygen Flow Rate 06/13/25 21:00 06/13/25 22:00 06/13/25 23:50 Temperature Pulse Rate 71 70 70 Respiratory Rate 18 18 Blood Pressure Pulse Oximetry 96 96 Oxygen Delivery Nasal Cannula Nasal Cannula Oxygen Flow Rate 2 2 06/14/25 00:00 06/14/25 00:46 06/14/25 02:00 Temperature 97.7 F Pulse Rate 65 65 66 Respiratory Rate 18 Blood Pressure 145/60 H Pulse Oximetry 94 Oxygen Delivery Oxygen Flow Rate 06/14/25 03:46 06/14/25 04:00 06/14/25 04:51 Temperature 98.1 F Pulse Rate 66 66 70 Respiratory Rate 18 16 Blood Pressure 150/69 H Pulse Oximetry 94 95 Oxygen Delivery Nasal Cannula Oxygen Flow Rate 2 06/14/25 06:00 06/14/25 07:30 06/14/25 07:32 Temperature Pulse Rate 73 76 Respiratory Rate 20 Blood Pressure Pulse Oximetry 94 Oxygen Delivery Room Air Oxygen Flow Rate 06/14/25 07:36 06/14/25 08:00 06/14/25 08:16 Temperature 98.0 F Pulse Rate 77 82 82 Respiratory Rate 20 20 Blood Pressure 178/73 H Pulse Oximetry 97 Oxygen Delivery Oxygen Flow Rate 06/14/25 09:41 06/14/25 10:00 06/14/25 11:51 Temperature 97.1 F L Pulse Rate 82 82 87 Respiratory Rate 18 Blood Pressure 184/71 H Pulse Oximetry 95 Oxygen Delivery Oxygen Flow Rate 06/14/25 12:00 06/14/25 14:00 06/14/25 14:31 Temperature Pulse Rate 88 79 80 Respiratory Rate 20 Blood Pressure Pulse Oximetry Oxygen Delivery Oxygen Flow Rate 06/14/25 14:41 Temperature Pulse Rate 81 Respiratory Rate 20 Blood Pressure Pulse Oximetry Oxygen Delivery Oxygen Flow Rate Intake/Output Intake/Output: Intake & Output 06/11/25 06/12/25 06/13/25 06/14/25 23:59 23:59 23:59 23:59 Intake Total 940 1950 1270 Output Total 200 1500 2400 Balance 740 450 -1130 Meds/Results Medications: Active Medications Generic Name Dose Route Start Last Admin Trade Name Freq PRN Reason Stop Dose Admin Acetaminophen 650 mg 06/12/25 12:44 Acetaminophen 325 Mg Tablet PO Q4H PRN Mild Pain (1-3) or Fever Albuterol/Ipratropium 3 ml 06/12/25 14:00 06/14/25 14:31 Ipratropium 0.5 Mg/Albuterol Sulfate 2.5 Mg (Base) Ampul.Neb 3 Ml INHALATION 3 ml Q6HRT MP Administration Benzonatate 100 mg 06/12/25 14:05 Benzonatate 100 Mg Capsule PO TID PRN Cough Clopidogrel Bisulfate 75 mg 06/13/25 09:00 06/14/25 09:44 Clopidogrel Bisulfate 75 Mg Tablet PO 75 mg DAILY MP Administration Dextrose 12.5 gm 06/12/25 12:44 Dextrose 50% 25 Gm/50 Ml Syringe IV PUSH PRN PRN Hypoglycemia Protocol Enoxaparin Sodium 30 mg 06/13/25 09:00 06/14/25 09:39 Enoxaparin 30 Mg/0.3 Ml Syringe SUB-Q 30 mg DAILY MP Administration Ergocalciferol 1,250 mcg 06/18/25 09:00 Ergocalciferol (Vitamin D2) 1,250 Mcg (50,000 Units) Capsule PO Tu@0900 MP Escitalopram Oxalate 10 mg 06/13/25 09:00 Escitalopram Oxalate 10 Mg Tablet PO On Hold: 06/13/25 09:00 DAILY [facility] Furosemide 20 mg 06/14/25 21:00 Furosemide Inj 40 Mg/4 Ml Vial IV PUSH Q12HR MP Glucagon 1 mg 06/12/25 12:44 Glucagon For Inj 1 Mg Vial IM PRN PRN Hypoglycemia Protocol Glucose 15 gm 06/12/25 12:44 Glucose Oral Gel 15 Gm Of Glucse In 37.5 Gm Tube PO PRN PRN Hypoglycemia Protocol Guaifenesin 600 mg 06/12/25 14:00 06/14/25 09:43 Guaifenesin 12 Hr 600 Mg Tabcr PO 600 mg Q12HR MP Administration Hydralazine HCl 25 mg 06/14/25 14:30 06/14/25 15:55 Hydralazine Hcl 25 Mg Tablet PO 25 mg Q8HR MP Administration Ceftriaxone Sodium 1 gm/ 50 mls @ 100 mls/hr 06/13/25 11:00 06/14/25 11:05 Sodium Chloride IVPB 100 mls/hr Q24H MP Administration Dextrose 1,000 mls @ 100 mls/hr 06/12/25 12:44 Dextrose 5% 1,000 Ml IVPB PRN PRN Hypoglycemia Protocol Doxycycline Hyclate 100 mg/ 100 mls @ 100 mls/hr 06/12/25 21:00 06/14/25 09:40 Sodium Chloride IVPB 100 mls/hr Q12H MP Administration Isosorbide Mononitrate 30 mg 06/14/25 14:30 06/14/25 15:55 Isosorbide Mononitrate 30 Mg Tab.Er.24h PO 30 mg QAM MP Administration Metoprolol Tartrate 100 mg 06/12/25 21:00 06/14/25 09:41 Metoprolol Tartrate 50 Mg Tab PO 100 mg Q12HR MP Administration Nifedipine 90 mg 06/13/25 09:00 06/14/25 09:41 Nifedipine 30 Mg Tab.Er.24 PO 60 mg DAILY MP Administration Pantoprazole Sodium 40 mg 06/13/25 09:00 06/14/25 09:43 Pantoprazole 40 Mg Tablet PO 40 mg DAILY MP Administration Perflutren Lipid Microsphere 0 ml 06/13/25 14:58 Perflutren Lipid Microspheres 1.5 Ml Vial Diluted To 10 Ml Total Volume IV PUSH 06/16/25 14:58 ONCE PRN adequate visualization Protocol Prednisone 40 mg 06/12/25 14:05 06/14/25 09:43 Prednisone 20 Mg Tablet PO 06/16/25 08:01 40 mg DAILY@0800 MP Administration Quetiapine Fumarate 25 mg 06/12/25 20:10 06/14/25 17:24 Quetiapine Fumarate 25 Mg Tablet PO 25 mg BID MP Administration Radiology Results: ITS Impressions Chest X-Ray 06/12/25 10:15 Impression: CHF. Superimposed probable pneumonia Labs Labs: Laboratory Results - last 24 hr 06/13/25 06/14/25 06/14/25 08:31 04:24 04:25 WBC 10.1 H RBC 2.73 L Hgb 7.5 L Hct 24.3 L MCV 89.0 MCH 27.5 MCHC 30.9 L RDW 17.2 H Plt Count 258 MPV 11.3 H Immature Gran % (Auto) 0.7 H Neut % (Auto) 75.5 H Lymph % (Auto) 14.4 L [place] % (Auto) 9.0 H Eos % (Auto) 0.2 Baso % (Auto) 0.2 Lymph # (Auto) 1.45 [place] # (Auto) 0.9 H Eos # (Auto) 0.0 Baso # (Auto) 0.0 Abs Immat Gran (auto) 0.07 H Absolute Neuts (auto) 7.6 H Absolute Nucleated RBC 0.000 Nucleated RBC % 0.0 Sodium 137 Potassium 5.0 Chloride 110 H Carbon Dioxide 18 L Anion Gap 9 BUN 59 H D Creatinine 2.84 H Estim Creat Clear Calc 11 Estimated GFR 16 L Glucose 98 Calcium 8.7 Magnesium 2.2 Total Bilirubin 0.3 AST 23 ALT 12 Alkaline Phosphatase 93 Total Protein 7.0 Albumin 3.4 L Homocysteine 27.9 H
--- NOTE | 2025-06-14 18:30 | WPDCNPSYCH ---
Assessment and Plan Assessment and plan (1) SOULEYMANE (generalized anxiety disorder): Code(s): F41.1 - Generalized anxiety disorder Status: Acute (2) MDD (major depressive disorder), recurrent episode: Code(s): F33.9 - Major depressive disorder, recurrent, unspecified Status: Acute (3) Alzheimer's dementia: Code(s): G30.9 - Alzheimer's disease, unspecified; F02.80 - Dementia in other diseases classified elsewhere, unspecified severity, without behavioral disturbance, psychotic disturbance, mood disturbance, and anxiety Status: Acute Plan Patient presenting with history of dementia, anxiety, depression. Overall, has been stable on escitalopram 10mg daily for past two years, managed outpatient by PCP Dr Angulo. Two months ago, recently prescribed quetiapine due to situational stressors, move-- resulting in depression that has resolved with the resolution of perceived stressor (move from [place]). Concern for side effects of daytime drowsiness, increase in appetite which started shortly after initiating quetiapine. Son reports he has not noted a significant improvement in symptoms with quetiapine. No history of notable agitation or irritability. Recommendations: -Continue escitalopram 10mg daily for depression and anxiety management -Discontinue quetiapine --discussed with son to monitor for increase in depressive symptoms, could consider restarting at 12.5mg if this occurs or increase in escitalopram. HPI Data of Consult Date/Time: 06/14/25 18:30 Requesting Physician: Tatianna Sandoval MD Primary Care Provider: Clayton Angulo, Consult Narrative Narrative: Madyson Giraldo is a 84 year old female admitted 06/12/2025 for shortness of breath, CHF exacerbation, pneumonia. Psychiatry has been consulted for evaluation of her currently prescribed outpatient psychiatric information. Madyson has a psychiatric history of dementia, anxiety, and depression. She is A/O x 3 upon interview, cooperative and appropriate in conversation. She reports her depression is overall stable on escitalopram 10mg daily, however does endorse fleeting feelings of loneliness at times (lives at home with ). Denies feeling hopeless or helpless, denies suicidal ideation. She denies a history of suicide attempts or inpatient psychiatric hospitalization. Anxiety is overall stable per patient, denies panic attacks. Sleep is good, getting up to 9 hours nightly. However, she recently was started on quetiapine about two months ago, which she reports she has noted a decrease in daytime energy and motivation. Camacho, son and POA, was called for additional information. He reports him and his brothers planned to move her to [place] where her and her could be more intently cared for by her son who resides there. She subsequently did not do well with this transition and had increased crying episodes, begging to return to [place]. While she was in [place], she established care with a geriatric primary care provider, who started her on the quetiapine 25mg qHS to manage her moods and crying episodes. Son reports he has not noted a significant improvement until she returned home, situational depression appeared to have resolved. However, he does express concern for the drowsiness and increased appetite side effects they have noted since she started the medication. Review of Systems Psychiatric: Psychiatric: Reports no additional psychiatric complaints PMFSH Past Medical History Medical History (Updated 06/14/25 @ 18:39 by Kinza Colón APRN) Acute on chronic anemia Obstructive sleep apnea Previously noncompliant with CPAP History of CVA (cerebrovascular accident) (~11/2023) Chronic kidney disease, stage 4 (severe) Anxiety and depression History of shingles Tuberculosis Age 16 Myocardial infarction (~2015) Alzheimer's dementia Anemia Unintentional weight loss Osteitis pubis Asthma-COPD overlap syndrome Hemoglobin A1c less than 7.0% 6.7% 09/2020 5.1% 11/2024 Adenomatous colon polyp Essential hypertension Type 2 diabetes mellitus Congestive heart failure Ventral incisional hernia Disorder of vitamin B12 Edema Pure hypercholesterolemia Allergic rhinitis GERD (gastroesophageal reflux disease) Gout Fracture of humerus Disorder of rotator cuff 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 Generalized osteoarthritis of multiple sites Seronegative spondyloarthropathy (~2016) Surgical History Surgical History History of left cataract extraction History of right cataract extraction Family History Family History Mother Hypertension Unknown Family history of stroke Other Diabetes mellitus Family history of allergic disorder Family history of cardiovascular disease Family history of sleep apnea Social History Social History Smoking status: Never smoker Tobacco type: cigarettes Second hand tobacco smoke exposure: No Alcohol intake: never Substance use: never Substance use type: does not use Do You Feel Safe in your Home?: Yes Lack of Transportation: No Lack of Food: Never True Current Housing: I Have Housing Concerned About Future Housing: No Difficulty Paying Gas/Electric Bills: No Difficulty Paying for Meds: No Currently Unemployed: No Education: High School Diploma/GED Difficulty w/ Childcare or Family Care: No Living arrangements: with family Occupation/Education: retired Gender identity (if verbalized by the patient): Female Sexual Orientation (if Verbalized by the Patient): Straight or Heterosexual Spiritual care concerns: No Meds Home Medications and Allergies Home Medications ?Medication ?Instructions ?Recorded ?Confirmed ?Type clopidogrel 75 mg tablet 75 mg PO DAILY #30 tabs 11/10/24 06/12/25 Rx escitalopram oxalate 10 mg tablet 10 mg PO DAILY #60 tabs 11/10/24 06/12/25 Rx nifedipine 90 mg tablet,extended 90 mg PO DAILY #90 tabs 11/10/24 06/12/25 Rx release pantoprazole 40 mg tablet,delayed 40 mg PO DAILY #30 tabs 11/10/24 06/12/25 Rx release blood sugar diagnostic (OneTouch #1 pk 11/14/24 06/12/25 Rx Verio test strips) blood-glucose meter (OneTouch #1 pkg 11/14/24 06/12/25 Rx Verio Flex Meter) lancets 30 gauge (OneTouch Delica #1 pkg 11/14/24 06/12/25 Rx Plus Lancet) metoprolol tartrate 100 mg tablet See Rx Instructions .Route 11/19/24 06/12/25 Rx .COMPLEX #180 tabs ergocalciferol (vitamin D2) 1,250 50,000 unit PO WEEKLY 06/12/25 06/12/25 History mcg (50,000 unit) capsule quetiapine 25 mg tablet 25 mg PO BID 06/12/25 06/12/25 History vitamin D3 125 mcg (5,000 1 cap PO DAILY 06/12/25 06/12/25 History unit)-vitamin K2 180 mcg capsule Allergies Allergy/AdvReac Type Severity Reaction Status Date / Time atorvastatin (From Lipitor) Allergy Mild myalgia Verified 06/12/25 14:36 fluvastatin (From Lescol) Allergy Mild Unknown Verified 06/12/25 14:36 pravastatin (From Pravachol) Allergy Mild Unknown Verified 06/12/25 14:36 rosuvastatin (From Crestor) Allergy Mild myalgia Verified 06/12/25 14:36 Penicillins Allergy Unknown Unknown Verified 06/12/25 14:36 iodine AdvReac Intermediate Unknown Verified 06/12/25 14:36 Vital Signs Vital Signs - 24 hr 06/13/25 20:00 06/13/25 20:02 06/13/25 20:03 Temperature Pulse Rate 72 68 68 Respiratory Rate 24 H 25 H Blood Pressure Pulse Oximetry 99 Oxygen Delivery BiPAP Oxygen Flow Rate 06/13/25 20:12 06/13/25 20:53 06/13/25 21:00 Temperature 97.8 F Pulse Rate 70 73 71 Respiratory Rate 22 H 18 Blood Pressure 155/63 H Pulse Oximetry 98 Oxygen Delivery Oxygen Flow Rate 06/13/25 21:00 06/13/25 22:00 06/13/25 23:50 Temperature Pulse Rate 71 70 70 Respiratory Rate 18 18 Blood Pressure Pulse Oximetry 96 96 Oxygen Delivery Nasal Cannula Nasal Cannula Oxygen Flow Rate 2 2 06/14/25 00:00 06/14/25 00:46 06/14/25 02:00 Temperature 97.7 F Pulse Rate 65 65 66 Respiratory Rate 18 Blood Pressure 145/60 H Pulse Oximetry 94 Oxygen Delivery Oxygen Flow Rate 06/14/25 03:46 06/14/25 04:00 06/14/25 04:51 Temperature 98.1 F Pulse Rate 66 66 70 Respiratory Rate 18 16 Blood Pressure 150/69 H Pulse Oximetry 94 95 Oxygen Delivery Nasal Cannula Oxygen Flow Rate 2 06/14/25 06:00 06/14/25 07:30 06/14/25 07:32 Temperature Pulse Rate 73 76 Respiratory Rate 20 Blood Pressure Pulse Oximetry 94 Oxygen Delivery Room Air Oxygen Flow Rate 06/14/25 07:36 06/14/25 08:00 06/14/25 08:16 Temperature 98.0 F Pulse Rate 77 82 82 Respiratory Rate 20 20 Blood Pressure 178/73 H Pulse Oximetry 97 Oxygen Delivery Oxygen Flow Rate 06/14/25 09:41 06/14/25 10:00 06/14/25 11:51 Temperature 97.1 F L Pulse Rate 82 82 87 Respiratory Rate 18 Blood Pressure 184/71 H Pulse Oximetry 95 Oxygen Delivery Oxygen Flow Rate 06/14/25 12:00 06/14/25 14:00 06/14/25 14:31 Temperature Pulse Rate 88 79 80 Respiratory Rate 20 Blood Pressure Pulse Oximetry Oxygen Delivery Oxygen Flow Rate 06/14/25 14:41 06/14/25 16:00 06/14/25 16:00 Temperature 98.2 F Pulse Rate 81 78 81 Respiratory Rate 20 20 Blood Pressure 154/58 H Pulse Oximetry 95 Oxygen Delivery Oxygen Flow Rate 06/14/25 18:00 Temperature Pulse Rate 70 Respiratory Rate Blood Pressure Pulse Oximetry Oxygen Delivery Oxygen Flow Rate Exam Psych: Appearance: grossly normal Mental Status: mental status grossly normal and other (A/O x 3) Speech and movement: Normal speech and movement present Affect: normal affect Attitude: cooperative Thought process: Normal thought process present Thought content: Yes Normal thought content present Insight: Limited insight present (Psych) Judgement: Limited judgement present (Psych) Results Labs 06/14/25 04:24 06/14/25 04:25 Labs: Short CBC 06/14/25 Range/Units 04:24 WBC 10.1 H (4.5-10.0) K/mm3 Hgb 7.5 L (12.0-15.0) g/dL Hct 24.3 L (37.0-47.0) % Plt Count 258 (150-375) k/mm3 BMP 06/14/25 04:25 Sodium 137 Potassium 5.0 Chloride 110 H Carbon Dioxide 18 L BUN 59 H D Creatinine 2.84 H Glucose 98 Calcium 8.7 Liver Function 06/14/25 Range/Units 04:25 Total Bilirubin 0.3 (0.2-1.3) mg/dL AST 23 (14-36) U/L ALT 12 (6-35) U/L Alkaline Phosphatase 93 (38-126) U/L Albumin 3.4 L (3.5-5.1) g/dL
[2025-06-14] MEDS: FUROSEMIDE INJ 40 MG/4 ML VIAL 20 MG IV PUSH (20:28)
[2025-06-15] VITALS (30 sets, daily range): BP systolic 128–161; BP diastolic 48–114; PULSE 58–80; RESP 13–20; TEMP 36–36.7; O2SAT 96–100
[2025-06-15] MEDS: IPRATROPIUM 0.5 MG/ALBUTEROL SULFATE 2.5 MG (BASE) AMPUL.NEB 3 ML INHALATION ×4 (03:00→19:38)
--- NOTE | 2025-06-15 08:47 | PM.PNCARD ---
Progress Note: A&P Assessment and Plan (1) Acute exacerbation of CHF (congestive heart failure): Qualifiers: Heart failure type: unspecified Qualified Code(s): I50.9 - Heart failure, unspecified Code(s): I50.9 - Heart failure, unspecified Status: Acute Assessment and Plan: Acute systolic heart failure. Echo shows EF 35-40%. On Metoprolol. On Lasix 20 mg IV BID for diuresis. Monitor kidney function and electrolytes. Holding off on Entresto, Jardiance, Spironolactone due to CKD. Troponin minimally elevated at .077 which could be due to CHF, CKD, acute anemia, pneumonia. Lexiscterence myoview would risk stratify her cardiac risk. Even if abnormal, I don't think we would cath her given her significant anemia and risk of worsening on antiplatelets if she got a stent. (2) HTN (hypertension): Qualifiers: Hypertension type: primary hypertension Qualified Code(s): I10 - Essential (primary) hypertension Code(s): I10 - Essential (primary) hypertension Status: Chronic Assessment and Plan: Stable. (3) Pneumonia: Qualifiers: Laterality: bilateral Lung location: unspecified part of lung Pneumonia type: due to unspecified organism Qualified Code(s): J18.9 - Pneumonia, unspecified organism Code(s): J18.9 - Pneumonia, unspecified organism Status: Acute Assessment and Plan: On antibiotics. (4) Anemia: Qualifiers: Anemia type: due to chronic kidney disease Chronic kidney disease stage: stage 4 (GFR 15-29) Qualified Code(s): N18.4 - Chronic kidney disease, stage 4 (severe); D63.1 - Anemia in chronic kidney disease Code(s): D64.9 - Anemia, unspecified Status: Acute Assessment and Plan: Monitor. GI consulted. (5) SOLOMON (acute kidney injury): Code(s): N17.9 - Acute kidney failure, unspecified Status: Acute Subjective Date/time seen: 06/15/25 08:47 Interval history: Her breathing is OK at rest. No chest pains. Exam Const: General: cooperative, healthy appearing and comfortable Orientation/consciousness: oriented to person, oriented to place and oriented to time Resp: Auscultation: clear to auscultation bilaterally, no crackles, no rales, no rhonchi and no wheezes Cardio: Rate: regular rate Rhythm: regular rhythm Heart sounds: no murmurs Peripheral pulses: dorsalis pedis present Neuro: General: oriented to person, oriented to place and oriented to time Extrem: Right lower extremity: edema Left lower extremity: edema Other: Mild edema of both legs Objective Data Vital Signs Vital Signs: Vital Signs - 24 hr 06/14/25 09:41 06/14/25 10:00 06/14/25 11:51 Temperature 97.1 F L Pulse Rate 82 82 87 Respiratory Rate 18 Blood Pressure 184/71 H Pulse Oximetry 95 Oxygen Delivery Fraction of Inspired Oxygen 06/14/25 12:00 06/14/25 14:00 06/14/25 14:31 Temperature Pulse Rate 88 79 80 Respiratory Rate 20 Blood Pressure Pulse Oximetry Oxygen Delivery Fraction of Inspired Oxygen 06/14/25 14:41 06/14/25 16:00 06/14/25 16:00 Temperature 98.2 F Pulse Rate 81 78 81 Respiratory Rate 20 20 Blood Pressure 154/58 H Pulse Oximetry 95 Oxygen Delivery Fraction of Inspired Oxygen 06/14/25 18:00 06/14/25 20:00 06/14/25 20:11 Temperature 97.7 F Pulse Rate 70 68 68 Respiratory Rate 16 Blood Pressure 146/59 H Pulse Oximetry 100 Oxygen Delivery Fraction of Inspired Oxygen 06/14/25 20:12 06/14/25 20:26 06/14/25 20:26 Temperature Pulse Rate 68 66 68 Respiratory Rate 16 16 Blood Pressure Pulse Oximetry 100 Oxygen Delivery Room Air Fraction of Inspired Oxygen 06/14/25 20:27 06/14/25 22:00 06/14/25 22:05 Temperature Pulse Rate 68 65 Respiratory Rate 16 28 H Blood Pressure Pulse Oximetry 96 Oxygen Delivery Room Air BiPAP Fraction of Inspired Oxygen 21 06/15/25 00:00 06/15/25 00:17 06/15/25 00:18 Temperature 97.6 F Pulse Rate 58 L 62 62 Respiratory Rate 13 13 Blood Pressure 134/52 L Pulse Oximetry 100 100 Oxygen Delivery BiPAP Fraction of Inspired Oxygen 28 06/15/25 02:00 06/15/25 03:00 06/15/25 04:00 Temperature Pulse Rate 58 L 61 Respiratory Rate 16 16 Blood Pressure Pulse Oximetry 100 Oxygen Delivery BiPAP BiPAP Fraction of Inspired Oxygen 28 06/15/25 04:00 06/15/25 06:00 06/15/25 06:08 Temperature 97.7 F Pulse Rate 61 66 65 Respiratory Rate 16 Blood Pressure 128/53 L Pulse Oximetry 100 Oxygen Delivery Fraction of Inspired Oxygen 06/15/25 07:41 Temperature 97.5 F L Pulse Rate 75 Respiratory Rate 20 Blood Pressure 150/60 H Pulse Oximetry 100 Oxygen Delivery Fraction of Inspired Oxygen Intake/Output Intake/Output: Intake & Output 06/12/25 06/13/25 06/14/25 06/15/25 23:59 23:59 23:59 23:59 Intake Total 940 1950 2385 710 Output Total 200 1500 2700 Balance 740 450 -315 710 Meds/Results Medications: Active Medications Generic Name Dose Route Start Last Admin Trade Name Freq PRN Reason Stop Dose Admin Acetaminophen 650 mg 06/12/25 12:44 Acetaminophen 325 Mg Tablet PO Q4H PRN Mild Pain (1-3) or Fever Albuterol/Ipratropium 3 ml 06/12/25 14:00 06/15/25 03:00 Ipratropium 0.5 Mg/Albuterol Sulfate 2.5 Mg (Base) Ampul.Neb 3 Ml INHALATION 3 ml Q6HRT MP Administration Benzonatate 100 mg 06/12/25 14:05 Benzonatate 100 Mg Capsule PO TID PRN Cough Clopidogrel Bisulfate 75 mg 06/13/25 09:00 06/14/25 09:44 Clopidogrel Bisulfate 75 Mg Tablet PO 75 mg DAILY MP Administration Dextrose 12.5 gm 06/12/25 12:44 Dextrose 50% 25 Gm/50 Ml Syringe IV PUSH PRN PRN Hypoglycemia Protocol Enoxaparin Sodium 30 mg 06/13/25 09:00 06/14/25 09:39 Enoxaparin 30 Mg/0.3 Ml Syringe SUB-Q 30 mg DAILY MP Administration Ergocalciferol 1,250 mcg 06/18/25 09:00 Ergocalciferol (Vitamin D2) 1,250 Mcg (50,000 Units) Capsule PO Tu@0900 MP Escitalopram Oxalate 10 mg 06/13/25 09:00 Escitalopram Oxalate 10 Mg Tablet PO On Hold: 06/13/25 09:00 DAILY MP Furosemide 20 mg 06/14/25 21:00 06/14/25 20:28 Furosemide Inj 40 Mg/4 Ml Vial IV PUSH 20 mg Q12HR MP Administration Glucagon 1 mg 06/12/25 12:44 Glucagon For Inj 1 Mg Vial IM PRN PRN Hypoglycemia Protocol Glucose 15 gm 06/12/25 12:44 Glucose Oral Gel 15 Gm Of Glucse In 37.5 Gm Tube PO PRN PRN Hypoglycemia Protocol Guaifenesin 600 mg 06/12/25 14:00 06/14/25 20:26 Guaifenesin 12 Hr 600 Mg Tabcr PO 600 mg Q12HR MP Administration Hydralazine HCl 25 mg 06/14/25 14:30 06/15/25 06:34 Hydralazine Hcl 25 Mg Tablet PO 25 mg Q8HR MP Administration Ceftriaxone Sodium 1 gm/ 50 mls @ 100 mls/hr 06/13/25 11:00 06/14/25 18:29 Sodium Chloride IVPB Infused Q24H MP Infusion Dextrose 1,000 mls @ 100 mls/hr 06/12/25 12:44 Dextrose 5% 1,000 Ml IVPB PRN PRN Hypoglycemia Protocol Doxycycline Hyclate 100 mg/ 100 mls @ 100 mls/hr 06/12/25 21:00 06/14/25 21:27 Sodium Chloride IVPB Infused Q12H MP Infusion Isosorbide Mononitrate 30 mg 06/14/25 14:30 06/14/25 15:55 Isosorbide Mononitrate 30 Mg Tab.Er.24h PO 30 mg QAM MP Administration Metoprolol Tartrate 100 mg 06/12/25 21:00 06/14/25 20:26 Metoprolol Tartrate 50 Mg Tab PO 100 mg Q12HR MP Administration Nifedipine 90 mg 06/13/25 09:00 06/14/25 09:41 Nifedipine 30 Mg Tab.Er.24 PO 60 mg DAILY MP Administration Pantoprazole Sodium 40 mg 06/13/25 09:00 06/14/25 09:43 Pantoprazole 40 Mg Tablet PO 40 mg DAILY MP Administration Perflutren Lipid Microsphere 0 ml 06/13/25 14:58 Perflutren Lipid Microspheres 1.5 Ml Vial Diluted To 10 Ml Total Volume IV PUSH 06/16/25 14:58 ONCE PRN adequate visualization Protocol Prednisone 40 mg 06/12/25 14:05 06/14/25 09:43 Prednisone 20 Mg Tablet PO 06/16/25 08:01 40 mg DAILY@0800 MP Administration Quetiapine Fumarate 25 mg 06/12/25 20:10 06/14/25 17:24 Quetiapine Fumarate 25 Mg Tablet PO 25 mg BID MP Administration Radiology Results: ITS Impressions Chest X-Ray 06/12/25 10:15 Impression: CHF. Superimposed probable pneumonia
[2025-06-15] MEDS: METOPROLOL TARTRATE 50 MG TAB 100 MG PO ×2 (09:26→21:15)
[2025-06-15] MEDS: guaiFENesin 12 HR 600 MG TABCR PO ×2 (09:26→21:15)
[2025-06-15] MEDS: ISOSORBIDE MONONITRATE 30 MG TAB.ER.24H PO (09:26)
[2025-06-15] MEDS: PANTOPRAZOLE 40 MG TABLET PO (09:27)
[2025-06-15] MEDS: CLOPIDOGREL BISULFATE 75 MG TABLET PO (09:27)
[2025-06-15] MEDS: DOXYCYCLINE IV 100 MG in SODIUM CHLORIDE 0.9% IV 100 ML IVPB ×2 (09:28→21:15)
[2025-06-15] MEDS: CYANOCOBALAMIN INJ 1,000 MCG/ML VIAL 1000 MCG IM (09:28)
[2025-06-15] MEDS: ENOXAPARIN 30 MG/0.3 ML SYRINGE SUB-Q (09:28)
[2025-06-15] MEDS: FUROSEMIDE INJ 40 MG/4 ML VIAL 20 MG IV PUSH ×2 (09:30→21:13)
[2025-06-15] MEDS: cefTRIAXone 1 GM in SODIUM CHLORIDE 0.9% IV 50 ML 100 ML IVPB (11:47)
[2025-06-15] MEDS: ESCITALOPRAM OXALATE 10 MG TABLET PO (11:48)
--- NOTE | 2025-06-15 14:06 | PM.IMPN ---
Progress Note: A&P Assessment and Plan (1) Acute hypoxemic respiratory failure: Code(s): J96.01 - Acute respiratory failure with hypoxia Status: Acute Assessment and Plan: CHF and Pneumonia CXR reviewed no oxygen at baseline, now on 2 liters oxygen s/p BiPAP Continue Rocephin and Doxycycline, and lasix monitor (2) Acute exacerbation of CHF (congestive heart failure): Qualifiers: Heart failure type: unspecified Qualified Code(s): I50.9 - Heart failure, unspecified Code(s): I50.9 - Heart failure, unspecified Status: Acute Assessment and Plan: Patient has hx of CHF, taken off diuresis in March of 2025. Reviewed chart, most recent echo completed in October of 2024 which showed normal biventricular size, systolic function, no significant valvular disease, and atrial septum appears aneurysmal however there was no [id number] shunt shunt. BNP currently elevated at 15,300. - ECHo EF 35-40% - decreased lasix 20mg IV bid - monitor I&Os daily weights - trend renal function, currently has SOLOMON superimposed on CKD - For Lexiscan myoview per cardiology pending - Cardiology consulted (3) Pneumonia: Qualifiers: Laterality: bilateral Lung location: unspecified part of lung Pneumonia type: due to unspecified organism Qualified Code(s): J18.9 - Pneumonia, unspecified organism Code(s): J18.9 - Pneumonia, unspecified organism Status: Acute Assessment and Plan: CXR concerning for bibasilar pneumonia. Does have history of aspiration pneumonia in October of 2024. Current concerns for aspiration? - on ceftriaxone and doxycycline on 06/12 - check sputum culture - MRSA PCR negative in October 2024 - supportive care: Mucinex mp, Tessalon Perles p.r.n., DuoNebs mp, Tylenol p.r.n. (4) Asthma-COPD overlap syndrome: Code(s): J44.9 - Chronic obstructive pulmonary disease, unspecified Status: Acute Assessment and Plan: Wheezing upon arrival, improved with DuoNeb and BiPAP. - Duonebs mp - prednisone 40 mg x5 days (5) Acute kidney injury superimposed on CKD: Code(s): N17.9 - Acute kidney failure, unspecified; N18.9 - Chronic kidney disease, unspecified Status: Acute Assessment and Plan: Patient has history of CKD stage 4. Creatinine 2.52, BUN 35, GFR 18 upon admission on 06/12. Baseline creatinine of 2.02. ?Cardiorenal Improving Cr 2.84 from 2.93 - monitor I&Os - trend renal function (6) Anemia: Qualifiers: Anemia type: due to chronic kidney disease Chronic kidney disease stage: stage 4 (GFR 15-29) Qualified Code(s): N18.4 - Chronic kidney disease, stage 4 (severe); D63.1 - Anemia in chronic kidney disease Code(s): D64.9 - Anemia, unspecified Status: Acute Assessment and Plan: History of anemia secondary to CKD. Currently has SOLOMON superimposed on CKD, may be source of patient's worsening anemia. Could also be dilutional from CHF exacerbation. - Hgb 7.3 upon admission on 06/12 - baseline hemoglobin 8-9 - Ferritin 21 and Hb 7.5 today IV iron 1000/1000mg - trend H&H (7) HTN (hypertension): Qualifiers: Hypertension type: primary hypertension Qualified Code(s): I10 - Essential (primary) hypertension Code(s): I10 - Essential (primary) hypertension Status: Chronic Assessment and Plan: - chronic, currently 156/98. Initially 201/109, improved with diuresis and now stable. - continue home medications: Metoprolol, Nifedipine - Added Isosorbide mononitrate and Hydralazine Increased in Hydralazine 50mg tid - monitor (8) Type 2 diabetes mellitus with hyperglycemia: Qualifiers: Diabetes mellitus [employer] insulin use: without [employer] use Qualified Code(s): E11.65 - Type 2 diabetes mellitus with hyperglycemia Code(s): E11.65 - Type 2 diabetes mellitus with hyperglycemia Status: Resolved Assessment and Plan: Previous hx of DM2, no longer on diabetic medications. A1C 5.1% on 11/15/2024. Did have hypoglycemia in November of 2024. - hypoglycemia protocol ordered - glucose checks prn Plan iron deficiency anemia Hb 6.4 on admission, repeat 7.6 Isat 19, and ferritin 19, b12 261 Started on IV iron 1000/1000 MMA and Homocysteine pending Day 3 IM b12 monitor H and H FOBT pending Gi consulted for GI bleed rule out Diet: heart healthy DVT Prophylaxis: Lovenox SQ Code Status: full code Subjective Date/time seen: 06/15/25 14:06 Interval history: Comfortable at bedside Review of Systems Review of Systems: All systems reviewed & are unremarkable except as noted in HPI and below Exam Narrative: +1 pitting edema, symmetric. bibasilar crackles, and left side remains diminished. Const: General: comfortable and no acute distress Other: , female, elderly, nontoxic appearance HENMT: Face/Nose/Sinus: Normal nares present Mouth: Yes moist mucous membranes Eyes: General: appearance normal, both eyes and all related structures Sclera: sclerae normal Pupils: Equal, round and reactive pupils present EOM: EOMs intact bilaterally Resp: Other: Mild tachypnea without accessory muscle use. Bibasilar crackles, left side remains diminished. No wheezing. Cardio: Rate: regular rate Rhythm: regular rhythm Other: S1-S2 present without murmur, rub, ectopy GI: Other: Abdomen soft, nondistended, nontender. Normoactive bowel sounds in all quadrants. Skin: General skin exam: normal color and no rashes or lesions noted Wounds: no wounds Neuro: Cranial nerves: Yes Equal, round and reactive pupils present Speech: normal speech Motor exam (neuro): 5/5 motor strength present throughout Sensory Exam: normal sensation Other: A&O x4 Extrem: Other: +1 pitting edema, symmetric. Psych: Mental Status: mental status grossly normal Affect: normal affect Other: Fair insight and judgment, very pleasant Objective Data Vital Signs Vital Signs: Vital Signs - 24 hr 06/14/25 14:31 06/14/25 14:41 06/14/25 16:00 Temperature 98.2 F Pulse Rate 80 81 78 Respiratory Rate 20 20 20 Blood Pressure 154/58 H Pulse Oximetry 95 Oxygen Delivery Fraction of Inspired Oxygen 06/14/25 16:00 06/14/25 18:00 06/14/25 20:00 Temperature Pulse Rate 81 70 68 Respiratory Rate Blood Pressure Pulse Oximetry Oxygen Delivery Fraction of Inspired Oxygen 06/14/25 20:11 06/14/25 20:12 06/14/25 20:26 Temperature 97.7 F Pulse Rate 68 68 66 Respiratory Rate 16 16 Blood Pressure 146/59 H Pulse Oximetry 100 100 Oxygen Delivery Room Air Fraction of Inspired Oxygen 06/14/25 20:26 06/14/25 20:27 06/14/25 22:00 Temperature Pulse Rate 68 68 65 Respiratory Rate 16 16 Blood Pressure Pulse Oximetry 96 Oxygen Delivery Room Air Fraction of Inspired Oxygen 21 06/14/25 22:05 06/15/25 00:00 06/15/25 00:17 Temperature Pulse Rate 58 L 62 Respiratory Rate 28 H 13 Blood Pressure Pulse Oximetry 100 Oxygen Delivery BiPAP BiPAP Fraction of Inspired Oxygen 28 06/15/25 00:18 06/15/25 02:00 06/15/25 03:00 Temperature 97.6 F Pulse Rate 62 58 L Respiratory Rate 13 16 Blood Pressure 134/52 L Pulse Oximetry 100 Oxygen Delivery BiPAP Fraction of Inspired Oxygen 06/15/25 04:00 06/15/25 04:00 06/15/25 06:00 Temperature Pulse Rate 61 61 66 Respiratory Rate 16 Blood Pressure Pulse Oximetry 100 Oxygen Delivery BiPAP Fraction of Inspired Oxygen 28 06/15/25 06:08 06/15/25 07:41 06/15/25 08:00 Temperature 97.7 F 97.5 F L Pulse Rate 65 75 75 Respiratory Rate 16 20 Blood Pressure 128/53 L 150/60 H Pulse Oximetry 100 100 Oxygen Delivery Fraction of Inspired Oxygen 06/15/25 09:00 06/15/25 09:06 06/15/25 09:26 Temperature Pulse Rate 72 76 77 Respiratory Rate 16 18 Blood Pressure Pulse Oximetry Oxygen Delivery Fraction of Inspired Oxygen 06/15/25 10:00 06/15/25 11:41 06/15/25 12:00 Temperature 96.8 F L Pulse Rate 80 76 74 Respiratory Rate 18 Blood Pressure 161/51 H Pulse Oximetry 96 Oxygen Delivery Fraction of Inspired Oxygen 06/15/25 13:27 Temperature Pulse Rate 80 Respiratory Rate 17 Blood Pressure Pulse Oximetry Oxygen Delivery Fraction of Inspired Oxygen Intake/Output Intake/Output: Intake & Output 06/12/25 06/13/25 06/14/25 06/15/25 23:59 23:59 23:59 23:59 Intake Total 940 1950 2385 950 Output Total 200 1500 2700 Balance 740 450 -315 950 Meds/Results Medications: Active Medications Generic Name Dose Route Start Last Admin Trade Name Freq PRN Reason Stop Dose Admin Acetaminophen 650 mg 06/12/25 12:44 Acetaminophen 325 Mg Tablet PO Q4H PRN Mild Pain (1-3) or Fever Albuterol/Ipratropium 3 ml 06/12/25 14:00 06/15/25 13:26 Ipratropium 0.5 Mg/Albuterol Sulfate 2.5 Mg (Base) Ampul.Neb 3 Ml INHALATION 3 ml Q6HRT MP Administration Benzonatate 100 mg 06/12/25 14:05 Benzonatate 100 Mg Capsule PO TID PRN Cough Clopidogrel Bisulfate 75 mg 06/13/25 09:00 06/15/25 09:27 Clopidogrel Bisulfate 75 Mg Tablet PO 75 mg DAILY MP Administration Dextrose 12.5 gm 06/12/25 12:44 Dextrose 50% 25 Gm/50 Ml Syringe IV PUSH PRN PRN Hypoglycemia Protocol Enoxaparin Sodium 30 mg 06/13/25 09:00 06/15/25 09:28 Enoxaparin 30 Mg/0.3 Ml Syringe SUB-Q 30 mg DAILY MP Administration Ergocalciferol 1,250 mcg 06/18/25 09:00 Ergocalciferol (Vitamin D2) 1,250 Mcg (50,000 Units) Capsule PO Tu@0900 MP Escitalopram Oxalate 10 mg 06/15/25 11:35 06/15/25 11:48 Escitalopram Oxalate 10 Mg Tablet PO 10 mg DAILY MP Administration Furosemide 20 mg 06/14/25 21:00 06/15/25 09:30 Furosemide Inj 40 Mg/4 Ml Vial IV PUSH 20 mg Q12HR MP Administration Glucagon 1 mg 06/12/25 12:44 Glucagon For Inj 1 Mg Vial IM PRN PRN Hypoglycemia Protocol Glucose 15 gm 06/12/25 12:44 Glucose Oral Gel 15 Gm Of Glucse In 37.5 Gm Tube PO PRN PRN Hypoglycemia Protocol Guaifenesin 600 mg 06/12/25 14:00 06/15/25 09:26 Guaifenesin 12 Hr 600 Mg Tabcr PO 600 mg Q12HR MP Administration Hydralazine HCl 25 mg 06/14/25 14:30 06/15/25 06:34 Hydralazine Hcl 25 Mg Tablet PO 25 mg Q8HR MP Administration Ceftriaxone Sodium 1 gm/ 50 mls @ 100 mls/hr 06/13/25 11:00 06/15/25 11:47 Sodium Chloride IVPB 100 mls/hr Q24H MP Administration Dextrose 1,000 mls @ 100 mls/hr 06/12/25 12:44 Dextrose 5% 1,000 Ml IVPB PRN PRN Hypoglycemia Protocol Doxycycline Hyclate 100 mg/ 100 mls @ 100 mls/hr 06/12/25 21:00 06/15/25 09:28 Sodium Chloride IVPB 100 mls/hr Q12H MP Administration Isosorbide Mononitrate 30 mg 06/14/25 14:30 06/15/25 09:26 Isosorbide Mononitrate 30 Mg Tab.Er.24h PO 30 mg QAM MP Administration Metoprolol Tartrate 100 mg 06/12/25 21:00 06/15/25 09:26 Metoprolol Tartrate 50 Mg Tab PO 100 mg Q12HR MP Administration Nifedipine 90 mg 06/13/25 09:00 06/15/25 09:26 Nifedipine 30 Mg Tab.Er.24 PO 90 mg DAILY MP Administration Pantoprazole Sodium 40 mg 06/13/25 09:00 06/15/25 09:27 Pantoprazole 40 Mg Tablet PO 40 mg DAILY MP Administration Perflutren Lipid Microsphere 0 ml 06/13/25 14:58 Perflutren Lipid Microspheres 1.5 Ml Vial Diluted To 10 Ml Total Volume IV PUSH 06/16/25 14:58 ONCE PRN adequate visualization Protocol Prednisone 40 mg 06/12/25 14:05 06/15/25 09:27 Prednisone 20 Mg Tablet PO 06/16/25 08:01 40 mg DAILY@0800 MP Administration Radiology Results: ITS Impressions Chest X-Ray 06/12/25 10:15 Impression: CHF. Superimposed probable pneumonia Quality VTE Prophylaxis VTE prophylaxis: pharmacologic ordered
[2025-06-16] VITALS (25 sets, daily range): BP systolic 137–164; BP diastolic 48–75; PULSE 65–79; RESP 16–24; TEMP 36.6–36.8; O2SAT 97–100
[2025-06-16] MEDS: IPRATROPIUM 0.5 MG/ALBUTEROL SULFATE 2.5 MG (BASE) AMPUL.NEB 3 ML INHALATION ×4 (01:38→20:34)
[2025-06-16 04:35] LABS: Hematocrit 23.4 % (37.0-47.0); Hemoglobin 7.1 g/dL (12.0-15.0); Immature Granulocyte Percent A 1.4 % (0-0.5); Lymphocytes Absolute Auto 1.40 K/mm3 (0.9-3.2); Mean Corpuscular HGB Conc 30.3 g/dl (32-36); Mean Corpuscular Hemoglobin 27.4 pg (26-34); Mean Corpuscular Volume 90.3 fl (80-100); Nucleated Red Blood Cells Absolute Auto 0.130 K/mm3 (0.0-0.012); Nucleated Red Blood Cells Perc 1.1 % (0.0-0.2); Platelet Count Result 275 k/mm3 (150-375); Red Blood Count 2.59 M/mm3 (4.2-5.4); White Blood Count 11.5 K/mm3 (4.5-10.0)
[2025-06-16 05:09] LABS: Alanine Aminotransferase 12 U/L (6-35); Albumin Level 3.4 g/dL (3.5-5.1); Alkaline Phosphatase 87 U/L (38-126); Anion Gap 9 mmol/L (4-12); Aspartate Amino Transferase 29 U/L (14-36); Bilirubin,Total 0.2 mg/dL (0.2-1.3); Blood Urea Nitrogen 69 mg/dL (7-17); Calcium 8.8 mg/dL (8.4-10.2); Carbon Dioxide 17 mmol/L (22-30); Chloride 111 mmol/L (98-107); Estimated CRCL calculation 12 ml/min; Estimated Glomerular Filt Rate 17; Glucose 86 mg/dL (65-110); Magnesium 2.2 mg/dL (1.6-2.3); Potassium 4.9 mmol/L (3.4-5.0); Sodium 137 mmol/L (137-145); Total Protein 6.8 g/dL (6.3-8.2)
[2025-06-16] MEDS: ESCITALOPRAM OXALATE 10 MG TABLET PO (08:28)
[2025-06-16] MEDS: CLOPIDOGREL BISULFATE 75 MG TABLET PO (08:28)
[2025-06-16] MEDS: ISOSORBIDE MONONITRATE 30 MG TAB.ER.24H PO (08:28)
[2025-06-16] MEDS: guaiFENesin 12 HR 600 MG TABCR PO ×2 (08:28→21:05)
[2025-06-16] MEDS: PANTOPRAZOLE 40 MG TABLET PO (08:29)
[2025-06-16] MEDS: FUROSEMIDE INJ 40 MG/4 ML VIAL 20 MG IV PUSH ×2 (08:31→21:05)
[2025-06-16] MEDS: ENOXAPARIN 30 MG/0.3 ML SYRINGE SUB-Q (08:31)
[2025-06-16] MEDS: METOPROLOL TARTRATE 50 MG TAB 100 MG PO ×2 (08:47→21:05)
--- NOTE | 2025-06-16 10:20 | PM.PNCARD ---
Progress Note: A&P Assessment and Plan (1) Acute exacerbation of CHF (congestive heart failure): Qualifiers: Heart failure type: unspecified Qualified Code(s): I50.9 - Heart failure, unspecified Code(s): I50.9 - Heart failure, unspecified Status: Acute Assessment and Plan: Acute systolic heart failure. Echo shows EF 35-40%. On Metoprolol. On Lasix 20 mg IV BID for diuresis. Monitor kidney function and electrolytes. Holding off on Entresto, Jardiance, Spironolactone due to CKD. Troponin minimally elevated at .077 which could be due to CHF, CKD, acute anemia, pneumonia. Discuss with patient and patient's son that we were planning on Lexiscan myoview tomorrow, but given significant anemia and currently treating for pneumonia, will not do stress test. Even if abnormal, we would not cath her given her significant anemia and risk of worsening on antiplatelets if she got a stent. No further cardiac workup is needed, will sign off. Please call with any questions. (2) HTN (hypertension): Qualifiers: Hypertension type: primary hypertension Qualified Code(s): I10 - Essential (primary) hypertension Code(s): I10 - Essential (primary) hypertension Status: Chronic Assessment and Plan: Stable. (3) Pneumonia: Qualifiers: Laterality: bilateral Lung location: unspecified part of lung Pneumonia type: due to unspecified organism Qualified Code(s): J18.9 - Pneumonia, unspecified organism Code(s): J18.9 - Pneumonia, unspecified organism Status: Acute Assessment and Plan: On antibiotics. (4) Anemia: Qualifiers: Anemia type: due to chronic kidney disease Chronic kidney disease stage: stage 4 (GFR 15-29) Qualified Code(s): N18.4 - Chronic kidney disease, stage 4 (severe); D63.1 - Anemia in chronic kidney disease Code(s): D64.9 - Anemia, unspecified Status: Acute Assessment and Plan: Monitor. GI consulted. (5) SOLOMON (acute kidney injury): Code(s): N17.9 - Acute kidney failure, unspecified Status: Acute Subjective Date/time seen: 06/16/25 10:20 Interval history: Son is at bedside. Her breathing is OK at rest. No chest pains. Exam Const: General: cooperative, healthy appearing and comfortable Orientation/consciousness: oriented to person, oriented to place and oriented to time Resp: Auscultation: clear to auscultation bilaterally, no crackles, no rales, no rhonchi and no wheezes Cardio: Rate: regular rate Rhythm: regular rhythm Heart sounds: no murmurs Peripheral pulses: dorsalis pedis present Neuro: General: oriented to person, oriented to place and oriented to time Extrem: Right lower extremity: edema Left lower extremity: edema Other: Mild edema of both legs Objective Data Vital Signs Vital Signs: Vital Signs - 24 hr 06/15/25 11:41 06/15/25 12:00 06/15/25 13:27 Temperature 96.8 F L Pulse Rate 76 74 80 Respiratory Rate 18 17 Blood Pressure 161/51 H Pulse Oximetry 96 Oxygen Delivery Fraction of Inspired Oxygen 06/15/25 14:00 06/15/25 16:00 06/15/25 16:30 Temperature 98.0 F Pulse Rate 73 73 70 Respiratory Rate 18 Blood Pressure 146/57 H Pulse Oximetry 96 Oxygen Delivery Fraction of Inspired Oxygen 06/15/25 18:00 06/15/25 19:38 06/15/25 19:40 Temperature Pulse Rate 73 72 Respiratory Rate 16 Blood Pressure Pulse Oximetry 96 Oxygen Delivery Room Air Fraction of Inspired Oxygen 21 06/15/25 19:48 06/15/25 20:00 06/15/25 20:00 Temperature 97.9 F Pulse Rate 72 70 72 Respiratory Rate 16 17 Blood Pressure 136/48 L Pulse Oximetry 99 Oxygen Delivery Fraction of Inspired Oxygen 06/15/25 20:27 06/15/25 21:15 06/15/25 22:00 Temperature Pulse Rate 70 71 69 Respiratory Rate 17 Blood Pressure Pulse Oximetry 99 Oxygen Delivery Room Air Fraction of Inspired Oxygen 06/15/25 23:45 06/15/25 23:58 06/16/25 00:00 Temperature 97.9 F Pulse Rate 70 70 70 Respiratory Rate 19 19 Blood Pressure 140/114 H Pulse Oximetry 99 99 Oxygen Delivery Room Air Fraction of Inspired Oxygen 06/16/25 01:38 06/16/25 01:40 06/16/25 01:48 Temperature Pulse Rate 70 71 Respiratory Rate 16 21 H 16 Blood Pressure Pulse Oximetry Oxygen Delivery BiPAP Fraction of Inspired Oxygen 06/16/25 02:00 06/16/25 04:00 06/16/25 04:00 Temperature 97.9 F Pulse Rate 69 68 68 Respiratory Rate 16 Blood Pressure 151/67 H Pulse Oximetry 97 Oxygen Delivery Fraction of Inspired Oxygen 06/16/25 04:38 06/16/25 06:00 06/16/25 07:41 Temperature 98.2 F Pulse Rate 68 70 76 Respiratory Rate 16 18 Blood Pressure 164/75 H Pulse Oximetry 97 98 Oxygen Delivery Room Air Fraction of Inspired Oxygen 06/16/25 07:59 06/16/25 08:47 Temperature Pulse Rate 76 79 Respiratory Rate 20 Blood Pressure Pulse Oximetry Oxygen Delivery Fraction of Inspired Oxygen Intake/Output Intake/Output: Intake & Output 06/13/25 06/14/25 06/15/25 06/16/25 23:59 23:59 23:59 23:59 Intake Total 1950 2385 1440 550 Output Total 1500 2700 850 850 Balance 450 -315 590 -300 Meds/Results Medications: Active Medications Generic Name Dose Route Start Last Admin Trade Name Freq PRN Reason Stop Dose Admin Acetaminophen 650 mg 06/12/25 12:44 Acetaminophen 325 Mg Tablet PO Q4H PRN Mild Pain (1-3) or Fever Albuterol/Ipratropium 3 ml 06/12/25 14:00 06/16/25 07:59 Ipratropium 0.5 Mg/Albuterol Sulfate 2.5 Mg (Base) Ampul.Neb 3 Ml INHALATION 3 ml Q6HRT MP Administration Benzonatate 100 mg 06/12/25 14:05 Benzonatate 100 Mg Capsule PO TID PRN Cough Clopidogrel Bisulfate 75 mg 06/13/25 09:00 06/16/25 08:28 Clopidogrel Bisulfate 75 Mg Tablet PO 75 mg DAILY MP Administration Dextrose 12.5 gm 06/12/25 12:44 Dextrose 50% 25 Gm/50 Ml Syringe IV PUSH PRN PRN Hypoglycemia Protocol Enoxaparin Sodium 30 mg 06/13/25 09:00 06/16/25 08:31 Enoxaparin 30 Mg/0.3 Ml Syringe SUB-Q 30 mg DAILY MP Administration Ergocalciferol 1,250 mcg 06/18/25 09:00 Ergocalciferol (Vitamin D2) 1,250 Mcg (50,000 Units) Capsule PO Tu@0900 [facility] Escitalopram Oxalate 10 mg 06/15/25 11:35 06/16/25 08:28 Escitalopram Oxalate 10 Mg Tablet PO 10 mg DAILY MP Administration Furosemide 20 mg 06/14/25 21:00 06/16/25 08:31 Furosemide Inj 40 Mg/4 Ml Vial IV PUSH 20 mg Q12HR MP Administration Glucagon 1 mg 06/12/25 12:44 Glucagon For Inj 1 Mg Vial IM PRN PRN Hypoglycemia Protocol Glucose 15 gm 06/12/25 12:44 Glucose Oral Gel 15 Gm Of Glucse In 37.5 Gm Tube PO PRN PRN Hypoglycemia Protocol Guaifenesin 600 mg 06/12/25 14:00 06/16/25 08:28 Guaifenesin 12 Hr 600 Mg Tabcr PO 600 mg Q12HR MP Administration Hydralazine HCl 50 mg 06/15/25 22:00 06/16/25 06:21 Hydralazine Hcl 25 Mg Tablet PO 50 mg Q8HR MP Administration Ceftriaxone Sodium 1 gm/ 50 mls @ 100 mls/hr 06/13/25 11:00 06/15/25 19:22 Sodium Chloride IVPB Infused Q24H MP Infusion Dextrose 1,000 mls @ 100 mls/hr 06/12/25 12:44 Dextrose 5% 1,000 Ml IVPB PRN PRN Hypoglycemia Protocol Doxycycline Hyclate 100 mg/ 100 mls @ 100 mls/hr 06/12/25 21:00 06/16/25 08:31 Sodium Chloride IVPB 100 mls/hr Q12H MP Administration Isosorbide Mononitrate 30 mg 06/14/25 14:30 06/16/25 08:28 Isosorbide Mononitrate 30 Mg Tab.Er.24h PO 30 mg QAM MP Administration Metoprolol Tartrate 100 mg 06/12/25 21:00 06/16/25 08:47 Metoprolol Tartrate 50 Mg Tab PO 100 mg Q12HR MP Administration Nifedipine 90 mg 06/13/25 09:00 06/16/25 08:29 Nifedipine 30 Mg Tab.Er.24 PO 90 mg DAILY MP Administration Pantoprazole Sodium 40 mg 06/13/25 09:00 06/16/25 08:29 Pantoprazole 40 Mg Tablet PO 40 mg DAILY MP Administration Perflutren Lipid Microsphere 0 ml 06/13/25 14:58 Perflutren Lipid Microspheres 1.5 Ml Vial Diluted To 10 Ml Total Volume IV PUSH 06/16/25 14:58 ONCE PRN adequate visualization Protocol Radiology Results: ITS Impressions Chest X-Ray 06/12/25 10:15 Impression: CHF. Superimposed probable pneumonia Labs Labs: Laboratory Results - last 24 hr 06/15/25 06/16/25 14:39 04:25 WBC 11.5 H RBC 2.59 L Hgb 7.1 L Hct 23.4 L MCV 90.3 MCH 27.4 MCHC 30.3 L RDW 17.2 H Plt Count 275 MPV 11.4 H Immature Gran % (Auto) 1.4 H Neut % (Auto) 76.9 H Lymph % (Auto) 12.2 L [place] % (Auto) 9.3 H Eos % (Auto) 0.1 Baso % (Auto) 0.1 L Lymph # (Auto) 1.40 [place] # (Auto) 1.1 H Eos # (Auto) 0.0 Baso # (Auto) 0.0 Abs Immat Gran (auto) 0.16 H Absolute Neuts (auto) 8.8 H Absolute Nucleated RBC 0.130 H Nucleated RBC % 1.1 H Sodium 137 Potassium 4.9 Chloride 111 H Carbon Dioxide 17 L Anion Gap 9 BUN 69 H D Creatinine 2.67 H Estim Creat Clear Calc 12 Estimated GFR 17 L Glucose 86 POC Capillary Glucose 137 H Calcium 8.8 Magnesium 2.2 Total Bilirubin 0.2 AST 29 ALT 12 Alkaline Phosphatase 87 Total Protein 6.8 Albumin 3.4 L
[2025-06-16] MEDS: cefTRIAXone 1 GM in SODIUM CHLORIDE 0.9% IV 50 ML 100 ML IVPB (13:38)
[2025-06-16] MEDS: DOXYCYCLINE IV 100 MG in SODIUM CHLORIDE 0.9% IV 100 ML IVPB ×2 (14:20→21:05)
--- NOTE | 2025-06-16 14:54 | P.PNIM_ITS ---
Progress Note: A&P Assessment and Plan (1) Acute hypoxemic respiratory failure: Code(s): J96.01 - Acute respiratory failure with hypoxia Status: Acute Assessment and Plan: CHF and Pneumonia CXR reviewed resolved, now on room air s/p BiPAP Continue Rocephin and Doxycycline, and lasix monitor (2) Acute exacerbation of CHF (congestive heart failure): Qualifiers: Heart failure type: unspecified Qualified Code(s): I50.9 - Heart failure, unspecified Code(s): I50.9 - Heart failure, unspecified Status: Acute Assessment and Plan: Patient has hx of CHF, taken off diuresis in March of 2025. Reviewed chart, most recent echo completed in October of 2024 which showed normal biventricular size, systolic function, no significant valvular disease, and atrial septum appears aneurysmal however there was no [id number] shunt shunt. BNP currently elevated at 15,300. - ECHo EF 35-40% - decreased lasix 20mg IV bid - monitor I&Os daily weights - trend renal function, currently has SOLOMON superimposed on CKD - For NEXAGE tomorrow - Cardiology following (3) Pneumonia: Qualifiers: Laterality: bilateral Lung location: unspecified part of lung Pneumonia type: due to unspecified organism Qualified Code(s): J18.9 - Pneumonia, unspecified organism Code(s): J18.9 - Pneumonia, unspecified organism Status: Acute Assessment and Plan: CXR concerning for bibasilar pneumonia. Does have history of aspiration pneumonia in October of 2024. Current concerns for aspiration? - on ceftriaxone and doxycycline on 06/12 - check sputum culture - MRSA PCR negative in October 2024 - supportive care: Mucinex mp, Tessalon Perles p.r.n., DuoNebs mp, Tylenol p.r.n. (4) Asthma-COPD overlap syndrome: Code(s): J44.9 - Chronic obstructive pulmonary disease, unspecified Status: Acute Assessment and Plan: Wheezing upon arrival, improved with DuoNeb and BiPAP. - Duonebs [facility] - prednisone 40 mg x5 days (5) Acute kidney injury superimposed on CKD: Code(s): N17.9 - Acute kidney failure, unspecified; N18.9 - Chronic kidney disease, unspecified Status: Acute Assessment and Plan: Patient has history of CKD stage 4. Creatinine 2.52, BUN 35, GFR 18 upon admission on 06/12. Baseline creatinine of 2.02. ?Cardiorenal Improving Cr 2.67 from 2.93 - monitor I&Os - trend renal function (6) Anemia: Qualifiers: Anemia type: due to chronic kidney disease Chronic kidney disease stage: stage 4 (GFR 15-29) Qualified Code(s): N18.4 - Chronic kidney disease, stage 4 (severe); D63.1 - Anemia in chronic kidney disease Code(s): D64.9 - Anemia, unspecified Status: Acute Assessment and Plan: History of anemia secondary to CKD. Currently has SOLOMON superimposed on CKD, may be source of patient's worsening anemia. Could also be dilutional from CHF exacerbation. - Hgb 7.3 upon admission on 06/12 - baseline hemoglobin 8-9 - Ferritin 21 and Hb 7.1 today IV iron 1000/1000mg - trend H&H (7) HTN (hypertension): Qualifiers: Hypertension type: primary hypertension Qualified Code(s): I10 - Essential (primary) hypertension Code(s): I10 - Essential (primary) hypertension Status: Chronic Assessment and Plan: - chronic, currently 156/98. Initially 201/109, improved with diuresis and now stable. - continue home medications: Metoprolol, Nifedipine - Added Isosorbide mononitrate and Hydralazine Increased in Hydralazine 50mg tid - monitor (8) Type 2 diabetes mellitus with hyperglycemia: Qualifiers: Diabetes mellitus senior living insulin use: without senior living use Qualified Code(s): E11.65 - Type 2 diabetes mellitus with hyperglycemia Code(s): E11.65 - Type 2 diabetes mellitus with hyperglycemia Status: Resolved Assessment and Plan: Previous hx of DM2, no longer on diabetic medications. A1C 5.1% on 11/15/2024. Did have hypoglycemia in November of 2024. - hypoglycemia protocol ordered - glucose checks prn Plan iron deficiency anemia Hb 6.4 on admission, repeat 7.6 Isat 19, and ferritin 19, b12 261 Started on IV iron 1000/1000 MMA and Homocysteine pending Day 3 IM b12 monitor H and H FOBT pending Gi noted that patient is high risk and no endoscopic intervention recommended Depression Contineu Escitalopram Stopped Quetiapine per psych Psych input appreciated Diet: heart healthy DVT Prophylaxis: Lovenox SQ Code Status: full code Subjective Date/time seen: 06/16/25 14:54 Interval history: Comfortable at bedside Review of Systems Review of Systems: All systems reviewed & are unremarkable except as noted in HPI and below Exam Narrative: +1 pitting edema, symmetric. bibasilar c rackles, and left side remains diminished. Const: General: comfortable and no acute distress Other: , female, elderly, nontoxic appearance HENMT: Face/Nose/Sinus: Normal nares present Mouth: Yes moist mucous membranes Eyes: General: appearance normal, both eyes and all related structures Sclera: sclerae normal Pupils: Equal, round and reactive pupils present EOM: EOMs intact bilaterally Resp: Other: Mild tachypnea without accessory muscle use. Bibasilar crackles, left side remains diminished. No wheezing. Cardio: Rate: regular rate Rhythm: regular rhythm Other: S1-S2 present without murmur, rub, ectopy GI: Other: Abdomen soft, nondistended, nontender. Normoactive bowel sounds in all quadrants. Skin: General skin exam: normal color and no rashes or lesions noted Wounds: no wounds Neuro: Cranial nerves: Yes Equal, round and reactive pupils present Speech: normal speech Motor exam (neuro): 5/5 motor strength present throughout Sensory Exam: normal sensation Other: A&O x4 Extrem: Other: +1 pitting edema, symmetric. Psych: Mental Status: mental status grossly normal Affect: normal affect Other: Fair insight and judgment, very pleasant Objective Data Vital Signs Vital Signs: Vital Signs - 24 hr 06/15/25 16:00 06/15/25 16:30 06/15/25 18:00 Temperature 98.0 F Pulse Rate 73 70 73 Respiratory Rate 18 Blood Pressure 146/57 H Pulse Oximetry 96 Oxygen Delivery Fraction of Inspired Oxygen 06/15/25 19:38 06/15/25 19:40 06/15/25 19:48 Temperature Pulse Rate 72 72 Respiratory Rate 16 16 Blood Pressure Pulse Oximetry 96 Oxygen Delivery Room Air Fraction of Inspired Oxygen 21 06/15/25 20:00 06/15/25 20:00 06/15/25 20:27 Temperature 97.9 F Pulse Rate 70 72 70 Respiratory Rate 17 17 Blood Pressure 136/48 L Pulse Oximetry 99 99 Oxygen Delivery Room Air Fraction of Inspired Oxygen 06/15/25 21:15 06/15/25 22:00 06/15/25 23:45 Temperature 97.9 F Pulse Rate 71 69 70 Respiratory Rate 19 Blood Pressure 140/114 H Pulse Oximetry 99 Oxygen Delivery Fraction of Inspired Oxygen 06/15/25 23:58 06/16/25 00:00 06/16/25 01:38 Temperature Pulse Rate 70 70 70 Respiratory Rate 19 16 Blood Pressure Pulse Oximetry 99 Oxygen Delivery Room Air Fraction of Inspired Oxygen 06/16/25 01:40 06/16/25 01:48 06/16/25 02:00 Temperature Pulse Rate 71 69 Respiratory Rate 21 H 16 Blood Pressure Pulse Oximetry Oxygen Delivery BiPAP Fraction of Inspired Oxygen 06/16/25 04:00 06/16/25 04:00 06/16/25 04:38 Temperature 97.9 F Pulse Rate 68 68 68 Respiratory Rate 16 16 Blood Pressure 151/67 H Pulse Oximetry 97 97 Oxygen Delivery Room Air Fraction of Inspired Oxygen 06/16/25 06:00 06/16/25 07:41 06/16/25 07:59 Temperature 98.2 F Pulse Rate 70 76 76 Respiratory Rate 18 20 Blood Pressure 164/75 H Pulse Oximetry 98 Oxygen Delivery Fraction of Inspired Oxygen 06/16/25 08:00 06/16/25 08:00 06/16/25 08:47 Temperature Pulse Rate 76 79 Respiratory Rate Blood Pressure Pulse Oximetry Oxygen Delivery Room Air Fraction of Inspired Oxygen 06/16/25 10:00 06/16/25 11:55 06/16/25 12:00 Temperature 98 F Pulse Rate 73 72 Respiratory Rate 18 Blood Pressure 153/58 H Pulse Oximetry 100 Oxygen Delivery Room Air Fraction of Inspired Oxygen 06/16/25 12:00 06/16/25 14:00 Temperature Pulse Rate 73 69 Respiratory Rate Blood Pressure Pulse Oximetry Oxygen Delivery Fraction of Inspired Oxygen Intake/Output Intake/Output: Intake & Output 06/13/25 06/14/25 06/15/25 06/16/25 23:59 23:59 23:59 23:59 Intake Total 1950 2385 1440 790 Output Total 1500 3040 850 850 Balance 450 -917 590 -60 Meds/Results Medications: Active Medications Generic Name Dose Route Start Last Admin Trade Name Freq PRN Reason Stop Dose Admin Acetaminophen 650 mg 06/12/25 12:44 Acetaminophen 325 Mg Tablet PO Q4H PRN Mild Pain (1-3) or Fever Albuterol/Ipratropium 3 ml 06/12/25 14:00 10/05/25 13:18 Ipratropium 0.5 Mg/Albuterol Sulfate 2.5 Mg (Base) Ampul.Neb 3 Ml INHALATION 3 ml Q6HRT MP Administration Benzonatate 100 mg 06/12/25 14:05 Benzonatate 100 Mg Capsule PO TID PRN Cough Buspirone HCl 5 mg 06/16/25 12:30 06/16/25 12:47 Buspirone Hcl 5 Mg Tablet PO 5 mg Q12HR MP Administration Clopidogrel Bisulfate 75 mg 06/13/25 09:00 06/16/25 08:28 Clopidogrel Bisulfate 75 Mg Tablet PO 75 mg DAILY MP Administration Dextrose 12.5 gm 06/12/25 12:44 Dextrose 50% 25 Gm/50 Ml Syringe IV PUSH PRN PRN Hypoglycemia Protocol Enoxaparin Sodium 30 mg 06/13/25 09:00 06/16/25 08:31 Enoxaparin 30 Mg/0.3 Ml Syringe SUB-Q 30 mg DAILY MP Administration Ergocalciferol 1,250 mcg 06/18/25 09:00 Ergocalciferol (Vitamin D2) 1,250 Mcg (50,000 Units) Capsule PO Tu@0900 MP Escitalopram Oxalate 10 mg 06/15/25 11:35 06/16/25 08:28 Escitalopram Oxalate 10 Mg Tablet PO 10 mg DAILY MP Administration Furosemide 20 mg 06/14/25 21:00 06/16/25 08:31 Furosemide Inj 40 Mg/4 Ml Vial IV PUSH 20 mg Q12HR MP Administration Glucagon 1 mg 06/12/25 12:44 Glucagon For Inj 1 Mg Vial IM PRN PRN Hypoglycemia Protocol Glucose 15 gm 06/12/25 12:44 Glucose Oral Gel 15 Gm Of Glucse In 37.5 Gm Tube PO PRN PRN Hypoglycemia Protocol Guaifenesin 600 mg 06/12/25 14:00 06/16/25 08:28 Guaifenesin 12 Hr 600 Mg Tabcr PO 600 mg Q12HR MP Administration Hydralazine HCl 50 mg 06/15/25 22:00 06/16/25 13:47 Hydralazine Hcl 25 Mg Tablet PO 50 mg Q8HR MP Administration Ceftriaxone Sodium 1 gm/ 50 mls @ 100 mls/hr 06/13/25 11:00 06/16/25 13:38 Sodium Chloride IVPB 100 mls/hr Q24H MP Administration Dextrose 1,000 mls @ 100 mls/hr 06/12/25 12:44 Dextrose 5% 1,000 Ml IVPB PRN PRN Hypoglycemia Protocol Doxycycline Hyclate 100 mg/ 100 mls @ 100 mls/hr 06/12/25 21:00 06/16/25 14:20 Sodium Chloride IVPB 100 mls/hr Q12H MP Administration Isosorbide Mononitrate 30 mg 06/14/25 14:30 06/16/25 08:28 Isosorbide Mononitrate 30 Mg Tab.Er.24h PO 30 mg QAM MP Administration Metoprolol Tartrate 100 mg 06/12/25 21:00 06/16/25 08:47 Metoprolol Tartrate 50 Mg Tab PO 100 mg Q12HR MP Administration Nifedipine 90 mg 06/13/25 09:00 06/16/25 08:29 Nifedipine 30 Mg Tab.Er.24 PO 90 mg DAILY MP Administration Pantoprazole Sodium 40 mg 06/13/25 09:00 06/16/25 08:29 Pantoprazole 40 Mg Tablet PO 40 mg DAILY MP Administration Perflutren Lipid Microsphere 0 ml 06/13/25 14:58 Perflutren Lipid Microspheres 1.5 Ml Vial Diluted To 10 Ml Total Volume IV PUSH 06/16/25 14:58 ONCE PRN adequate visualization Protocol Radiology Results: ITS Impressions Chest X-Ray 06/12/25 10:15 Impression: CHF. Superimposed probable pneumonia Labs Labs: Laboratory Results - last 24 hr 06/16/25 04:25 WBC 11.5 H RBC 2.59 L Hgb 7.1 L Hct 23.4 L MCV 90.3 MCH 27.4 MCHC 30.3 L RDW 17.2 H Plt Count 275 MPV 11.4 H Immature Gran % (Auto) 1.4 H Neut % (Auto) 76.9 H Lymph % (Auto) 12.2 L [place] % (Auto) 9.3 H Eos % (Auto) 0.1 Baso % (Auto) 0.1 L Lymph # (Auto) 1.40 [place] # (Auto) 1.1 H Eos # (Auto) 0.0 Baso # (Auto) 0.0 Abs Immat Gran (auto) 0.16 H Absolute Neuts (auto) 8.8 H Absolute Nucleated RBC 0.130 H Nucleated RBC % 1.1 H Sodium 137 Potassium 4.9 Chloride 111 H Carbon Dioxide 17 L Anion Gap 9 BUN 69 H D Creatinine 2.67 H Estim Creat Clear Calc 12 Estimated GFR 17 L Glucose 86 Calcium 8.8 Magnesium 2.2 Total Bilirubin 0.2 AST 29 ALT 12 Alkaline Phosphatase 87 Total Protein 6.8 Albumin 3.4 L Quality VTE Prophylaxis VTE prophylaxis: pharmacologic ordered
[2025-06-16] MEDS: SPIRONOLACTONE 25 MG TABLET PO (21:04)
[2025-06-16] MEDS: SALINE LOCK FLUSH 10 ML IV PUSH (21:06)
[2025-06-17] VITALS (16 sets, daily range): BP systolic 140–163; BP diastolic 43–61; PULSE 67–776; RESP 18–20; TEMP 36.4–36.9; O2SAT 98–100
[2025-06-17] MEDS: IPRATROPIUM 0.5 MG/ALBUTEROL SULFATE 2.5 MG (BASE) AMPUL.NEB 3 ML INHALATION ×3 (01:36→14:10)
[2025-06-17] MEDS: SALINE LOCK FLUSH 10 ML IV PUSH (06:24)
[2025-06-17] MEDS: SPIRONOLACTONE 25 MG TABLET PO (08:57)
[2025-06-17] MEDS: ISOSORBIDE MONONITRATE 30 MG TAB.ER.24H PO (08:57)
[2025-06-17] MEDS: DOXYCYCLINE IV 100 MG in SODIUM CHLORIDE 0.9% IV 100 ML IVPB (08:57)
[2025-06-17] MEDS: METOPROLOL TARTRATE 50 MG TAB 100 MG PO (08:57)
[2025-06-17] MEDS: PANTOPRAZOLE 40 MG TABLET PO (08:58)
[2025-06-17] MEDS: ESCITALOPRAM OXALATE 10 MG TABLET PO (08:58)
[2025-06-17] MEDS: guaiFENesin 12 HR 600 MG TABCR PO (08:58)
[2025-06-17] MEDS: CLOPIDOGREL BISULFATE 75 MG TABLET PO (08:58)
[2025-06-17 09:01] LABS: Hematocrit 27.6 % (37.0-47.0); Hemoglobin 7.8 g/dL (12.0-15.0); Immature Granulocyte Percent A 1.2 % (0-0.5); Lymphocytes Absolute Auto 1.82 K/mm3 (0.9-3.2); Mean Corpuscular HGB Conc 28.3 g/dl (32-36); Mean Corpuscular Hemoglobin 28.0 pg (26-34); Mean Corpuscular Volume 98.9 fl (80-100); Nucleated Red Blood Cells Absolute Auto 0.080 K/mm3 (0.0-0.012); Nucleated Red Blood Cells Perc 0.8 % (0.0-0.2); Platelet Count Result 265 k/mm3 (150-375); Red Blood Count 2.79 M/mm3 (4.2-5.4); White Blood Count 9.9 K/mm3 (4.5-10.0)
[2025-06-17] MEDS: FUROSEMIDE INJ 40 MG/4 ML VIAL 20 MG IV PUSH (09:01)
[2025-06-17] MEDS: ENOXAPARIN 30 MG/0.3 ML SYRINGE SUB-Q (09:01)
[2025-06-17 09:10] LABS: Alanine Aminotransferase 17 U/L (6-35); Albumin Level 3.7 g/dL (3.5-5.1); Alkaline Phosphatase 84 U/L (38-126); Anion Gap 15 mmol/L (4-12); Aspartate Amino Transferase 23 U/L (14-36); Bilirubin,Total 0.2 mg/dL (0.2-1.3); Blood Urea Nitrogen 73 mg/dL (7-17); Calcium 9.2 mg/dL (8.4-10.2); Carbon Dioxide 15 mmol/L (22-30); Chloride 109 mmol/L (98-107); Estimated CRCL calculation 12 ml/min; Estimated Glomerular Filt Rate 17; Glucose 134 mg/dL (65-110); Magnesium 2.0 mg/dL (1.6-2.3); Potassium 5.0 mmol/L (3.4-5.0); Sodium 139 mmol/L (137-145); Total Protein 6.9 g/dL (6.3-8.2)
[2025-06-17 09:15] LABS: Anisocytosis 1+
[2025-06-17 09:16] LABS: Burr Cells Occasional; Macrocytosis 1+ (NORMAL); Ovalocytes 1+; Schistocytes 1+
[2025-06-17] MEDS: cefTRIAXone 1 GM in SODIUM CHLORIDE 0.9% IV 50 ML 100 ML IVPB (11:18)
--- NOTE | 2025-06-17 14:25 | P.PNIM_ITS ---
Progress Note: A&P Assessment and Plan (1) Acute hypoxemic respiratory failure: Code(s): J96.01 - Acute respiratory failure with hypoxia Status: Acute Assessment and Plan: CHF and Pneumonia CXR reviewed resolved, now on room air s/p BiPAP Continue Rocephin and Doxycycline, and lasix monitor (2) Acute exacerbation of CHF (congestive heart failure): Qualifiers: Heart failure type: unspecified Qualified Code(s): I50.9 - Heart failure, unspecified Code(s): I50.9 - Heart failure, unspecified Status: Acute Assessment and Plan: Patient has hx of CHF, taken off diuresis in March of 2025. Reviewed chart, most recent echo completed in October of 2024 which showed normal biventricular size, systolic function, no significant valvular disease, and atrial septum appears aneurysmal however there was no [id number] shunt shunt. BNP currently elevated at 15,300. - ECHo EF 35-40% - decreased lasix 20mg IV bid - monitor I&Os daily weights - trend renal function, currently has SOLOMON superimposed on CKD - For [employer] today - Cardiology following (3) Pneumonia: Qualifiers: Laterality: bilateral Lung location: unspecified part of lung Pneumonia type: due to unspecified organism Qualified Code(s): J18.9 - Pneumonia, unspecified organism Code(s): J18.9 - Pneumonia, unspecified organism Status: Acute Assessment and Plan: CXR concerning for bibasilar pneumonia. Does have history of aspiration pneumonia in October of 2024. Current concerns for aspiration? - on ceftriaxone and doxycycline on 06/12 - F/u cultures - MRSA PCR negative in October 2024 - supportive care: Mucinex mp, Tessalon Perles p.r.n., DuoNebs mp, Tylenol p.r.n. (4) Asthma-COPD overlap syndrome: Code(s): J44.9 - Chronic obstructive pulmonary disease, unspecified Status: Acute Assessment and Plan: Wheezing upon arrival, improved with DuoNeb and BiPAP. - Duonebs [facility] - prednisone 40 mg x5 days (5) Acute kidney injury superimposed on CKD: Code(s): N17.9 - Acute kidney failure, unspecified; N18.9 - Chronic kidney disease, unspecified Status: Acute Assessment and Plan: Patient has history of CKD stage 4. Creatinine 2.52, BUN 35, GFR 18 upon admission on 06/12. Baseline creatinine of 2.02. ?Cardiorenal Improving Cr 2.62 from 2.93 - monitor I&Os - trend renal function (6) Anemia: Qualifiers: Anemia type: due to chronic kidney disease Chronic kidney disease stage: stage 4 (GFR 15-29) Qualified Code(s): N18.4 - Chronic kidney disease, stage 4 (severe); D63.1 - Anemia in chronic kidney disease Code(s): D64.9 - Anemia, unspecified Status: Acute Assessment and Plan: History of anemia secondary to CKD. Currently has SOLOMON superimposed on CKD, may be source of patient's worsening anemia. Could also be dilutional from CHF exacerbation. - Hgb 7.3 upon admission on 06/12 - baseline hemoglobin 8-9 - Ferritin 21 and Hb 7.8 today IV iron 1000/1000mg - trend H&H (7) HTN (hypertension): Qualifiers: Hypertension type: primary hypertension Qualified Code(s): I10 - Essential (primary) hypertension Code(s): I10 - Essential (primary) hypertension Status: Chronic Assessment and Plan: - chronic, currently 156/98. Initially 201/109, improved with diuresis and now stable. 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 A1C 5.1% on 11/15/2024. Did have hypoglycemia in November of 2024. - hypoglycemia protocol ordered - glucose checks prn Plan iron deficiency anemia Hb 6.4 on admission, repeat 7.6 Isat 19, and ferritin 19, b12 261 Started on IV iron 1000/1000 MMA and Homocysteine pending s/p 3 days IM b12, continue daily b12 monitor H and H Gi noted that patient is high risk and no endoscopic intervention recommended Depression Continue Escitalopram Stopped Quetiapine per psych Psych input appreciated Diet: heart healthy DVT Prophylaxis: Lovenox SQ Code Status: full code Subjective Date/time seen: 06/17/25 14:25 Interval history: Comfortable at bedside For steve today Review of Systems Review of Systems: All systems reviewed & are unremarkable except as noted in HPI and below Exam Narrative: +1 pitting edema, symmetric. bibasilar c rackles, and left side remains diminished. Const: General: comfortable and no acute distress Other: , female, elderly, nontoxic appearance HENMT: Face/Nose/Sinus: Normal nares present Mouth: Yes moist mucous membranes Eyes: General: appearance normal, both eyes and all related structures Sclera: sclerae normal Pupils: Equal, round and reactive pupils present EOM: EOMs intact bilaterally Resp: Other: Mild tachypnea without accessory muscle use. Bibasilar crackles, left side remains diminished. No wheezing. Cardio: Rate: regular rate Rhythm: regular rhythm Other: S1-S2 present without murmur, rub, ectopy GI: Other: Abdomen soft, nondistended, nontender. Normoactive bowel sounds in all quadrants. Skin: General skin exam: normal color and no rashes or lesions noted Wounds: no wounds Neuro: Cranial nerves: Yes Equal, round and reactive pupils present Speech: normal speech Motor exam (neuro): 5/5 motor strength present throughout Sensory Exam: normal sensation Other: A&O x4 Extrem: Other: +1 pitting edema, symmetric. Psych: Mental Status: mental status grossly normal Affect: normal affect Other: Fair insight and judgment, very pleasant Objective Data Vital Signs Vital Signs: Vital Signs - 24 hr 06/16/25 16:00 06/16/25 16:00 06/16/25 16:00 Temperature 97.8 F Pulse Rate 67 71 Respiratory Rate 18 Blood Pressure 153/50 H Pulse Oximetry 97 Oxygen Delivery Room Air Fraction of Inspired Oxygen 06/16/25 18:00 06/16/25 20:00 06/16/25 20:00 Temperature 97.8 F Pulse Rate 73 72 72 Respiratory Rate 24 H Blood Pressure 147/48 H Pulse Oximetry 98 Oxygen Delivery Fraction of Inspired Oxygen 06/16/25 20:35 06/16/25 20:35 06/16/25 20:45 Temperature Pulse Rate 76 76 74 Respiratory Rate 20 20 20 Blood Pressure Pulse Oximetry 100 Oxygen Delivery Room Air Fraction of Inspired Oxygen 21 06/16/25 20:47 06/16/25 21:05 06/16/25 22:00 Temperature Pulse Rate 78 65 Respiratory Rate 22 H Blood Pressure Pulse Oximetry Oxygen Delivery BiPAP Fraction of Inspired Oxygen 06/16/25 23:54 06/17/25 00:00 06/17/25 01:36 Temperature 98.0 F Pulse Rate 65 73 76 Respiratory Rate 23 H 20 Blood Pressure 137/51 L Pulse Oximetry 100 Oxygen Delivery Fraction of Inspired Oxygen 06/17/25 01:45 06/17/25 02:00 06/17/25 04:00 Temperature Pulse Rate 67 70 Respiratory Rate 20 Blood Pressure 140/56 L Pulse Oximetry Oxygen Delivery Fraction of Inspired Oxygen 06/17/25 04:00 06/17/25 06:00 06/17/25 08:00 Temperature 97.6 F Pulse Rate 68 76 79 Respiratory Rate 18 Blood Pressure 148/43 H Pulse Oximetry 99 Oxygen Delivery Fraction of Inspired Oxygen 06/17/25 08:00 06/17/25 08:00 06/17/25 08:40 Temperature Pulse Rate 80 80 77 Respiratory Rate 20 20 Blood Pressure Pulse Oximetry 99 Oxygen Delivery Room Air Fraction of Inspired Oxygen 21 06/17/25 08:50 06/17/25 08:57 06/17/25 10:00 Temperature Pulse Rate 80 80 72 Respiratory Rate 20 Blood Pressure Pulse Oximetry Oxygen Delivery Fraction of Inspired Oxygen 06/17/25 11:46 06/17/25 12:00 06/17/25 12:00 Temperature 98.2 F Pulse Rate 68 68 74 Respiratory Rate 18 18 Blood Pressure 154/61 H Pulse Oximetry 100 100 Oxygen Delivery Room Air Fraction of Inspired Oxygen 21 06/17/25 14:10 Temperature Pulse Rate 72 Respiratory Rate 20 Blood Pressure Pulse Oximetry Oxygen Delivery Fraction of Inspired Oxygen Intake/Output Intake/Output: Intake & Output 06/14/25 06/15/25 06/16/25 06/17/25 23:59 23:59 23:59 23:59 Intake Total 2385 1440 1240 880 Output Total 2700 477 606 4125 Balance -315 279 390 -708 Meds/Results Medications: Active Medications Generic Name Dose Route Start Last Admin Trade Name Freq PRN Reason Stop Dose Admin Acetaminophen 650 mg 06/12/25 12:44 Acetaminophen 325 Mg Tablet PO Q4H PRN Mild Pain (1-3) or Fever Albuterol/Ipratropium 3 ml 06/12/25 14:00 06/17/25 14:10 Ipratropium 0.5 Mg/Albuterol Sulfate 2.5 Mg (Base) Ampul.Neb 3 Ml INHALATION 3 ml Q6HRT MP Administration Benzonatate 100 mg 06/12/25 14:05 Benzonatate 100 Mg Capsule PO TID PRN Cough Buspirone HCl 5 mg 06/16/25 12:30 06/17/25 08:58 Buspirone Hcl 5 Mg Tablet PO 5 mg Q12HR MP Administration Clopidogrel Bisulfate 75 mg 06/13/25 09:00 06/17/25 08:58 Clopidogrel Bisulfate 75 Mg Tablet PO 75 mg DAILY MP Administration Dextrose 12.5 gm 06/12/25 12:44 Dextrose 50% 25 Gm/50 Ml Syringe IV PUSH PRN PRN Hypoglycemia Protocol Enoxaparin Sodium 30 mg 06/13/25 09:00 06/17/25 09:01 Enoxaparin 30 Mg/0.3 Ml Syringe SUB-Q 30 mg DAILY MP Administration Ergocalciferol 1,250 mcg 06/18/25 09:00 Ergocalciferol (Vitamin D2) 1,250 Mcg (50,000 Units) Capsule PO Tu@0900 MP Escitalopram Oxalate 10 mg 06/15/25 11:35 06/17/25 08:58 Escitalopram Oxalate 10 Mg Tablet PO 10 mg DAILY MP Administration Furosemide 20 mg 06/14/25 21:00 06/17/25 09:01 Furosemide Inj 40 Mg/4 Ml Vial IV PUSH 20 mg Q12HR MP Administration Glucagon 1 mg 06/12/25 12:44 Glucagon For Inj 1 Mg Vial IM PRN PRN Hypoglycemia Protocol Glucose 15 gm 06/12/25 12:44 Glucose Oral Gel 15 Gm Of Glucse In 37.5 Gm Tube PO PRN PRN Hypoglycemia Protocol Guaifenesin 600 mg 06/12/25 14:00 06/17/25 08:58 Guaifenesin 12 Hr 600 Mg Tabcr PO 600 mg Q12HR MP Administration Hydralazine HCl 50 mg 06/15/25 22:00 06/17/25 06:24 Hydralazine Hcl 25 Mg Tablet PO 50 mg Q8HR MP Administration Ceftriaxone Sodium 1 gm/ 50 mls @ 100 mls/hr 06/13/25 11:00 06/17/25 11:18 Sodium Chloride IVPB 100 mls/hr Q24H MP Administration Dextrose 1,000 mls @ 100 mls/hr 06/12/25 12:44 Dextrose 5% 1,000 Ml IVPB PRN PRN Hypoglycemia Protocol Doxycycline Hyclate 100 mg/ 100 mls @ 100 mls/hr 06/12/25 21:00 06/17/25 08:57 Sodium Chloride IVPB 100 mls/hr Q12H MP Administration Isosorbide Mononitrate 30 mg 06/14/25 14:30 06/17/25 08:57 Isosorbide Mononitrate 30 Mg Tab.Er.24h PO 30 mg QAM MP Administration Metoprolol Tartrate 100 mg 06/12/25 21:00 06/17/25 08:57 Metoprolol Tartrate 50 Mg Tab PO 100 mg Q12HR MP Administration Nifedipine 90 mg 06/13/25 09:00 06/17/25 08:58 Nifedipine 30 Mg Tab.Er.24 PO 90 mg DAILY MP Administration Pantoprazole Sodium 40 mg 06/13/25 09:00 06/17/25 08:58 Pantoprazole 40 Mg Tablet PO 40 mg DAILY MP Administration Sodium Chloride 10 ml 06/16/25 22:00 06/17/25 06:24 Saline Lock Flush IV PUSH 10 ml Q8HR MP Administration Sodium Chloride 10 ml 06/16/25 19:23 Saline Lock Flush IV PUSH PRN PRN Flush Sodium Chloride 20 ml 06/16/25 19:23 Saline Lock Flush IV PUSH PRN PRN after blood draws Spironolactone 25 mg 06/16/25 18:35 06/17/25 08:57 Spironolactone 25 Mg Tablet PO 25 mg QAM MP Administration Radiology Results: ITS Impressions Chest X-Ray 06/12/25 10:15 Impression: CHF. Superimposed probable pneumonia Labs Labs: Laboratory Results - last 24 hr 06/17/25 08:40 WBC 9.9 RBC 2.79 L Hgb 7.8 L Hct 27.6 L MCV 98.9 D MCH 28.0 MCHC 28.3 L RDW 18.1 H Plt Count 265 MPV 11.0 H Immature Gran % (Auto) 1.2 H Neut % (Auto) 71.8 Lymph % (Auto) 18.4 [place] % (Auto) 8.1 Eos % (Auto) 0.2 Baso % (Auto) 0.3 Lymph # (Auto) 1.82 [place] # (Auto) 0.8 H Eos # (Auto) 0.0 Baso # (Auto) 0.0 Abs Immat Gran (auto) 0.12 H Absolute Neuts (auto) 7.1 H Absolute Nucleated RBC 0.080 H Band Neutrophils % Not Reportable Nucleated RBC % 0.8 H Platelet Estimate Adequate Anisocytosis 1+ Macrocytosis 1+ Ovalocytes 1+ [place] Cells Occasional Bite Cells Occasional Schistocytes 1+ Sodium 139 Potassium 5.0 Chloride 109 H Carbon Dioxide 15 L Anion Gap 15 H BUN 73 H Creatinine 2.62 H Estim Creat Clear Calc 12 Estimated GFR 17 L Glucose 134 H Calcium 9.2 Magnesium 2.0 Total Bilirubin 0.2 AST 23 ALT 17 Alkaline Phosphatase 84 Total Protein 6.9 Albumin 3.7 Quality VTE Prophylaxis VTE prophylaxis: pharmacologic ordered
--- NOTE | 2025-06-17 15:22 | PM.DS ---
DS: Admitting Diagnosis Discharge Date 06/17/2025 Admitting Diagnosis Shortness of Breath DS: Discharge Diagnosis Discharge Diagnosis (1) Acute exacerbation of CHF (congestive heart failure): Qualifiers: Heart failure type: unspecified Qualified Code(s): I50.9 - Heart failure, unspecified Code(s): I50.9 - Heart failure, unspecified Status: Acute (2) Pneumonia: Qualifiers: Laterality: bilateral Lung location: unspecified part of lung Pneumonia type: due to unspecified organism Qualified Code(s): J18.9 - Pneumonia, unspecified organism Code(s): J18.9 - Pneumonia, unspecified organism Status: Acute DS: Summary Hospital Course Hospital Course: HPi per admitting provider 84 y/o F with PMH of anemia, asthma-COPD, CHF, DM2, GERD, gout, CKD S4, HTN, and sleep apnea presents here with shortness of breath. The patient presents here via personal vehicle with her sons on 06/12 for further evaluation of shortness of breath. The patient reports onset approx 2 weeks ago. However, worsened last night while she was at rest. She used her home inhalers with only partial relief. This morning while she was getting dressed she became increasingly short of breath. She reported associated lower extremity edema, weight gain (March was 136 lbs, now 153 lbs today - family also reports her appetite has increased with some recent medication changes), and cough (intermittently productive). Denies fever, chills, nausea, vomiting, diarrhea, or abdominal pain. She reports a history of congestive heart failure and was previously on Lasix, however this was discontinued in March and she was supposed to be started on SCDs, however she has not received these and they were prescribed for her LE edema. Sons are in the process of moving her to [place] where the patient's sons are trying to move into one home there (originally from there), provider there made the changes due to her kidney function. The patient denies dark/tarry stools or BRBPR. The patient arrived to the emergency department in significant respiratory distress. She was tachycardic in the 120s, tachypneic, and unable to speak in full sentences. She received Lasix, a DuoNeb, and was started on BiPAP. Heart rate and tachypnea has improved and patient is reporting subjective improvement. Initial VS at presentation: 98? F, HR 122, RR 26, 201/109, and 89% on room air. Subsequently placed on BiPAP, now improved to a HR 76, R 14, and satting 100%. ED workup showed: WBC 11.8, hemoglobin 7.3, INR 1.2, creatinine 2.52 and GFR 18 (2.02 and 23 on 11/15/2024), CO2 13, gap 15, glucose 244, BNP 59131, initial troponin 0.022, UA showed 3+ protein and 3-5 RBC otherwise unremarkable, viral PCR negative. Initial ABG showed a pH of 7.196, HC03 14.5, O2 saturation 93.4% on room air. CXR showed CHF and superimposed probable pneumonia. EKG showed sinus tachycardia with occasional PVCs, nonspecific ST and T-wave abnormalities inferior/lateral leads, baseline artifact. Topical management (1) Acute hypoxemic respiratory failure: CHF and Pneumonia CXR reviewed resolved, now on room air s/p BiPAP Continue Rocephin and Doxycycline, and lasix monitor (2) Acute exacerbation of CHF (congestive heart failure): Qualifiers: Heart failure type: unspecified Qualified Code(s): I50.9 - Heart failure, unspecified Code(s): I50.9 - Heart failure, unspecified Status: Acute Assessment and Plan: Patient has hx of CHF, taken off diuresis in March of 2025. Reviewed chart, most recent echo completed in October of 2024 which showed normal biventricular size, systolic function, no significant valvular disease, and atrial septum appears aneurysmal however there was no [id number]-[id number] shunt shunt. BNP currently elevated at 15,300. - ECHo EF 35-40% - decreased lasix 20mg IV bid - monitor I&Os daily weights - trend renal function, currently has SOLOMON superimposed on CKD Cardiology cancelled LExiscan since they will not do cardiac cath in the background anemia and Pneumonia discharged on Lasix 20mg bid f/u with cardiology as instructed (3) Pneumonia: CXR concerning for bibasilar pneumonia. Does have history of aspiration pneumonia in October of 2024. Current concerns for aspiration? - on ceftriaxone and doxycycline completed 5 daysm discharges on 2 more days of Cefdinir and Doxycycline. - Cultures negative - supportive care: Mucinex jaz, Tessalon Perles p.r.n., DuoNebs jaz, Tylenol p.r.n. (4) Asthma-COPD overlap syndrome: Wheezing upon arrival, improved with DuoNeb and BiPAP. - Duonebs jaz - prednisone 40 mg x5 days (5) Acute kidney injury superimposed on CKD: Patient has history of CKD stage 4. Creatinine 2.52, BUN 35, GFR 18 upon admission on 06/12. Baseline creatinine of 2.02. ?Cardiorenal Improving Cr 2.62 from 2.93 , baseline 2.2 improving F/u with PCP in 3-5 days (6) Anemia: - Hgb 7.3 upon admission on 06/12 - baseline hemoglobin 8-9 - Ferritin 21 and Hb 7.8 today IV iron 1000/1000mg f/u closely with PCP (7) HTN (hypertension): - chronic, currently 156/98. Initially 201/109, improved with diuresis and now stable. - continue home medications: Metoprolol, Nifedipine - Added Isosorbide mononitrate and Hydralazine 50 tid monitor (8) Type 2 diabetes mellitus with hyperglycemia: Previous hx of DM2, no longer on diabetic medications. A1C 5.1% on 11/15/2024. Did have hypoglycemia in November of 2024. - hypoglycemia protocol ordered - glucose checks prn iron deficiency anemia Hb 6.4 on admission, repeat 7.6 Isat 19, and ferritin 19, b12 261 Started on IV iron 1000/1000 MMA and Homocysteine pending s/p 3 days IM b12, continue daily b12 monitor H and H Gi noted that patient is high risk and no endoscopic intervention recommended Depression Continue Escitalopram Stopped Quetiapine per psych Psych input appreciated F/u with PCP in 3-5 days F/u with cardiology and Psych as instructed Time Spent with Patient Time attestation: Total time spent providing and/or coordinating discharge services: DS: Data Data Completed and Pending Labs on day of discharge: Labs from last 24 hours 06/17/25 06/17/25 15:11 08:40 WBC 9.9 RBC 2.79 L Hgb 7.8 L Hct 27.6 L MCV 98.9 D MCH 28.0 MCHC 28.3 L RDW 18.1 H Plt Count 265 MPV 11.0 H Immature Gran % (Auto) 1.2 H Neut % (Auto) 71.8 Lymph % (Auto) 18.4 [place] % (Auto) 8.1 Eos % (Auto) 0.2 Baso % (Auto) 0.3 Lymph # (Auto) 1.82 [place] # (Auto) 0.8 H Eos # (Auto) 0.0 Baso # (Auto) 0.0 Abs Immat Gran (auto) 0.12 H Absolute Neuts (auto) 7.1 H Absolute Nucleated RBC 0.080 H Band Neutrophils % Not Reportable Nucleated RBC % 0.8 H Platelet Estimate Adequate Anisocytosis 1+ Macrocytosis 1+ Ovalocytes 1+ [place] Cells Occasional Bite Cells Occasional Schistocytes 1+ Sodium 139 Potassium 5.0 Chloride 109 H Carbon Dioxide 15 L Anion Gap 15 H BUN 73 H Creatinine 2.62 H Estim Creat Clear Calc 12 Estimated GFR 17 L Glucose 134 H POC Capillary Glucose 121 H Calcium 9.2 Magnesium 2.0 Total Bilirubin 0.2 AST 23 ALT 17 Alkaline Phosphatase 84 Total Protein 6.9 Albumin 3.7 Preliminary micro results at discharge 06/12/25 11:07 Blood Culture - Preliminary Blood 06/12/25 11:07 Blood Culture - Preliminary Blood Discharge Plan Discharge Attending physician on discharge: Lanie Borrero Consulting providers: Darryl Cline; Aaron Solomon Discharging Clinician: Lanie Borrero Anticipated Discharge Date/Time: 06/17/25 15:19 Patient Disposition: Home Activity: as tolerated Diet: as tolerated and heart healthy Patient Instructions: Antibiotic Form Patient Language: Tajik Stand Alone Forms: General Discharge Information Follow-up/Referrals: Kev,Clayton Paniagua MD [Primary Care Provider] Referral Note: F/u with PCP in 3-5 days Darryl Cline DO [Physician, Cardiology] Referral Note: F/u with cardiology as instructed Aaron Solomon MD [Physician, Psychiatry] Referral Note: F/u with psych as instructed Discharge Medications: New isosorbide mononitrate 30 mg Tablet Extended Release 24 Hr 30 mg PO QAM 30 Days Qty: 30 1RF hydralazine 25 mg Tablet 50 mg PO Q8HR 30 Days Qty: 180 1RF spironolactone 25 mg Tablet 25 mg PO QAM 30 Days Qty: 30 1RF doxycycline hyclate 100 mg tablet 100 mg PO BID 2 Days Qty: 4 0RF furosemide [Lasix] 20 mg tablet 20 mg PO BID 30 Days Qty: 60 1RF Spiriva Respimat 1.25 mcg/actuation mist 2 puff inhalation DAILY Qty: 4 0RF cyanocobalamin (vitamin B-12) [Vitamin B-12] 1,000 mcg Tablet 1,000 mcg PO QAM 30 Days Qty: 30 0RF cefdinir 300 mg capsule 300 mg PO Q12H 2 Days Qty: 4 0RF Continued (DME) blood-glucose meter [OptimitiveTouch Verio Flex meter] [facility] [place] Qty: 1 0RF Rx Instructions: May substitute to in-stock meter and/or covered by insurance. Use As Directed (DME) OneTouch Verio test strips Strip Qty: 1 0RF Rx Instructions: May substitute to in-stock and/or covered by insurance strips. Use As Directed (DME) lancets [OneTouch Delica Plus Lancet] 30 gauge [facility] [place] Qty: 1 0RF Rx Instructions: May substitute to in-stock and/or covered by insurance lancets. Use As Directed quetiapine 25 mg tablet 25 mg PO BID vitamin D3-vitamin K2 125 mcg (5,000 unit)-180 mcg capsule 1 cap PO DAILY ergocalciferol (vitamin D2) 1,250 mcg (50,000 unit) capsule 50,000 unit PO WEEKLY metoprolol tartrate 100 mg tablet See Rx Instructions .ROUTE .COMPLEX Qty: 180 3RF Dose Instruction: TAKE 1 TABLET BY MOUTH TWICE DAILY Rx Instructions: TAKE 1 TABLET BY MOUTH TWICE DAILY nifedipine 90 mg tablet extended release 90 mg PO DAILY Qty: 90 3RF clopidogrel 75 mg tablet 75 mg PO DAILY Qty: 30 0RF pantoprazole 40 mg Tablet,Delayed Release (Dr/Ec) 40 mg PO DAILY Qty: 30 0RF escitalopram oxalate 10 mg tablet 10 mg PO DAILY Qty: 60 0RF Date of admission: 06/12/25 13:41 Primary Care Provider: Kev,Clayton Paniagua Admitting Provider: Tatianna Sandoval Attending physician on admission: Tatianna Sandoval Condition: Serious
--- NOTE | 2025-06-17 17:16 | PC.NURSE ---
Reviewed all discharge instructions with patient family member as the patient is noted to have a diagnosis or Alzheimers and unable to retain information/education. Discussed medications, last dose given and when next dose is due. Mid-line IV removed intact. monitoring specialist removed and patient dressed. Wheeled to exit with family member.
== END 2025-06-17 16:50 | disposition home or self-care (01) | DRG 291 ==
LOC: ANHED 13:18 → ANHIMU 13:22
PROVIDERS: Emergency Medicine; Nurse Practitioner; Student in an Organized Health Care Education/Training Program; Admitting Provider Internal Medicine; Emergency Provider Physician Assistant; PCP Internal Medicine; Visit Provider Internal Medicine
DX: I13.0 Hypertensive heart and chronic kidney disease with heart failure and stage 1 through stage 4 chronic kidney disease, or unspecified chronic kidney disease (principal); I50.23 Acute on chronic systolic (congestive) heart failure; J18.9 Pneumonia, unspecified organism; J96.01 Acute respiratory failure with hypoxia; N17.9 Acute kidney failure, unspecified; N18.4 Chronic kidney disease, stage 4 (severe); J44.1 Chronic obstructive pulmonary disease with (acute) exacerbation; J44.0 Chronic obstructive pulmonary disease with (acute) lower respiratory infection; G47.33 Obstructive sleep apnea (adult) (pediatric); E11.65 Type 2 diabetes mellitus with hyperglycemia; E11.22 Type 2 diabetes mellitus with diabetic chronic kidney disease; I25.2 Old myocardial infarction; D63.1 Anemia in chronic kidney disease; G30.9 Alzheimer's disease, unspecified; F02.80 Dementia in other diseases classified elsewhere, unspecified severity, without behavioral disturbance, psychotic disturbance, mood disturbance, and anxiety; F41.8 Other specified anxiety disorders; K21.9 Gastro-esophageal reflux disease without esophagitis; M15.9 Polyosteoarthritis, unspecified; D50.9 Iron deficiency anemia, unspecified; Z86.73 Personal history of transient ischemic attack (TIA), and cerebral infarction without residual deficits
CPT/HCPCS: 36410; 36415; 36430; 36600; 71046; 80053; 81001; 82375; 82607; 82728; 82746; 82805; 82948; 83050; 83090; 83540; 83550; 83735; 83880; 83921; 84443; 84484; 85014; 85018; 85025; 85610; 85730; 86850; 86900; 86901; 86923; 87040; 87637; 93005; 93306; 94002; 94003; 94640; 96365; 96367; 96375; 99285; A9270; C1751; G0378; J0456; J0696; J1650; J1756; J1938; J3420; J7050; J7512; P9016